=== PATIENT | male | born 1940 | race Caucasian/White ===

== ENCOUNTER → 2016-07-18 | Outpatient (CLI) | payer MEDICARE, BC ==
[2016-07-18 16:06] LABS: EKG EKG PERFORMED
[2016-07-18 16:47] LABS: Potassium 4.1 mmol/L (3.5-5.1)
== END | disposition home or self-care (01) ==
LOC: LABPAT 15:53
PROVIDERS: ATTEND Anesthesiology
DX: Z01.810 Encounter for preprocedural cardiovascular examination (principal); Z01.818 Encounter for other preprocedural examination
CPT/HCPCS: 84132; 86850; 86900; 86901; 93005

== ENCOUNTER 2016-07-20 05:55 | Day surgery (SDC) | payer MEDICARE, BC ==
[~2016-07-20 05:55] MED LIST: HEPARIN SODIUM,PORCINE 5,000 UNIT/ML 1 ML VIAL SQ ONE; ceFAZolin 2 GM in SODIUM CHLORIDE 0.9% 100 ML IVPB ONE
[2016-07-20] MEDS ORDERED: DEXAMETHASONE SOD PHOSPHATE 10 MG/ML 1 ML VIAL IV ONE (06:01)
[2016-07-20] MEDS ORDERED: ONDANSETRON 4 MG/2 ML VIAL IVP ONE (06:01)
[2016-07-20] MEDS ORDERED: HYDROmorphone 1 MG/ML 1 ML SYRINGE IVP PRN ×2 (06:01→11:22)
[2016-07-20] MEDS: LACTATED RINGERS 1,000 ML IV SCH (06:45)
[2016-07-20] MEDS ORDERED: LIDOCAINE 1% 20 ML VIAL (10MG/ML) FOR IV START INTRADERMA ONE (06:45)
[2016-07-20 06:46] LABS: Glucose,Whole Blood 137 mg/dL (75-99)
[2016-07-20 07:06] LABS: Basophils # (A) 0.1 k/uL (0-0.2); Basophils % (A) 1 %; CH 30.5; CHCM 33.1; Eosinophils # (A) 0.2 k/uL (0-0.7); Eosinophils % (A) 3 %; HCT 46.2 % (39.0-53.0); HDW 2.27; HGB 15.3 gm/dL (13.0-17.5); Luc # (Auto) 0.09; Luc % (Auto) 2; Lymphocytes # (A) 1.4 k/uL (1.0-4.8); Lymphocytes % (A) 25 %; MCH 30.6 pg (25.0-35.0); MCV 92.6 fL (80.0-100.0); Mean Platelet Volume 7.1; Monocytes # (A) 0.4 k/uL (0-1.0); Monocytes % (A) 6 %; Neutrophils # (A) 3.7 k/uL (1.3-7.7); Neutrophils % (A) 64 %; RBC 4.99 m/uL (4.30-5.90); RDW 12.9 % (11.5-15.5); WBC 5.9 k/uL (3.8-10.6); WBC (Perox) 5.69
[2016-07-20 07:24] LABS: ALT 38 U/L (21-72); AST 27 U/L (17-59); Alkaline Phosphatase 66 U/L (38-126); Anion Gap 12 mmol/L; Blood Urea Nitrogen 18 mg/dL (9-20); Calcium 10.5 mg/dL (8.4-10.2); Carbon Dioxide 26 mmol/L (22-30); Chloride 104 mmol/L (98-107); Glucose 154 mg/dL (74-99); Non-African American GFR(MDRD) >60 (>60 ml/min/1.73 sqM); Potassium 4.2 mmol/L (3.5-5.1); Sodium 142 mmol/L (137-145); Total Bilirubin 1.2 mg/dL (0.2-1.3); Total Protein 7.5 g/dL (6.3-8.2)
[2016-07-20] MEDS ORDERED: BUPIVACAIN-EPI 0.25%-1:200,000 30 ML VIAL SQ ONE ×2 (07:37→09:07)
--- NOTE | 2016-07-20 07:57 | P.GSHP ---
History of Present Illness H&P Date: 07/20/16 Chief Complaint: Incisional hernia This is a 76-year-old male who presents today for laparoscopic robotic-assisted repair of incisional hernia. Patient has developed a incisional hernia along his midline scar. - Constitutional Constitutional: Reports as per HPI Past Medical History Past Medical History: Diabetes Mellitus, Hyperlipidemia, Hypertension Additional Past Medical History / Comment(s): STATES ABDOMINAL HERNIA. History of Any Multi-Drug Resistant Organisms: None Reported Past Surgical History: Cholecystectomy, Hernia Repair Additional Past Surgical History / Comment(s): ruptured diaphragm after a fall ( about 2005) then had abdominal surgery, CATARACTS Past Anesthesia/Blood Transfusion Reactions: No Reported Reaction, Motion Sickness Past Psychological History: No Psychological Hx Reported Additional Psychological History / Comment(s): . Smoking Status: Former smoker Past Alcohol Use History: Rare Additional Past Alcohol Use History / Comment(s): QUIT SMOKING 1989, SMOKED ABOUT 30 YRS, 1PPD Past Drug Use History: None Reported - Past Family History Sister(s) Family Medical History: Cancer, CVA/TIA Mother Family Medical History: No Reported History Brother(s) Family Medical History: Hypertension Medications and Allergies Home Medications Medication Instructions Recorded Confirmed Type Atorvastatin [Lipitor] 10 mg PO HS 10/24/14 07/14/16 History Valsartan/Hydrochlorothiazide 1 tab PO HS 10/25/14 07/14/16 History [Valsartan-Hctz 160-12.5 mg Tab] Aspirin [Adult Low Dose Aspirin EC] 81 mg PO DAILY 07/29/15 07/14/16 History Sildenafil Citrate [Viagra] 100 mg PO ONCE 07/14/16 07/14/16 History metFORMIN HCL [Glucophage] 500 mg PO DAILY 07/14/16 07/14/16 History Allergies Allergy/AdvReac Type Severity Reaction Status Date / Time No Known Allergies Allergy Verified 07/14/16 17:34 Surgical - Exam Vital Signs Temp Pulse Resp BP Pulse Ox 97.2 F L 65 18 134/79 99 07/20/16 06:25 07/20/16 06:25 07/20/16 06:25 07/20/16 06:25 07/20/16 06:25 - General well developed, no distress - Eyes PERRL - ENT normal pinna - Neck no masses - Respiratory normal expansion - Cardiovascular Rhythm: regular - Abdomen Abdomen: soft, non tender Hernia: incisional, reducible (10 x 15 cm) Results - Labs 07/20/16 06:56 07/20/16 06:56 Abnormal Lab Results - Last 24 Hours (Table) 07/20/16 07/20/16 Range/Units 06:32 06:56 Glucose 154 H (74-99) mg/dL POC Glucose (mg/dL) 137 H (75-99) mg/dL Calcium 10.5 H (8.4-10.2) mg/dL Diabetes panel 07/20/16 Range/Units 06:56 Sodium 142 (137-145) mmol/L Potassium 4.2 (3.5-5.1) mmol/L Chloride 104 (98-107) mmol/L Carbon Dioxide 26 (22-30) mmol/L BUN 18 (9-20) mg/dL Creatinine 0.90 (0.66-1.25) mg/dL Glucose 154 H (74-99) mg/dL Calcium 10.5 H (8.4-10.2) mg/dL AST 27 (17-59) U/L ALT 38 (21-72) U/L Alkaline Phosphatase 66 (38-126) U/L Total Protein 7.5 (6.3-8.2) g/dL Albumin 4.4 (3.5-5.0) g/dL Calcium panel 07/20/16 Range/Units 06:56 Calcium 10.5 H (8.4-10.2) mg/dL Albumin 4.4 (3.5-5.0) g/dL Pituitary panel 07/20/16 Range/Units 06:56 Sodium 142 (137-145) mmol/L Potassium 4.2 (3.5-5.1) mmol/L Chloride 104 (98-107) mmol/L Carbon Dioxide 26 (22-30) mmol/L BUN 18 (9-20) mg/dL Creatinine 0.90 (0.66-1.25) mg/dL Glucose 154 H (74-99) mg/dL Calcium 10.5 H (8.4-10.2) mg/dL Adrenal panel 07/20/16 Range/Units 06:56 Sodium 142 (137-145) mmol/L Potassium 4.2 (3.5-5.1) mmol/L Chloride 104 (98-107) mmol/L Carbon Dioxide 26 (22-30) mmol/L BUN 18 (9-20) mg/dL Creatinine 0.90 (0.66-1.25) mg/dL Glucose 154 H (74-99) mg/dL Calcium 10.5 H (8.4-10.2) mg/dL Total Bilirubin 1.2 (0.2-1.3) mg/dL AST 27 (17-59) U/L ALT 38 (21-72) U/L Alkaline Phosphatase 66 (38-126) U/L Total Protein 7.5 (6.3-8.2) g/dL Albumin 4.4 (3.5-5.0) g/dL Assessment and Plan Plan: Incisional hernia. We'll perform laparoscopic robotic-assisted repair.
[2016-07-20] MEDS ORDERED: NEOSTIGMINE 1 MG/ML 10 ML VIAL ONE (08:01)
[2016-07-20] MEDS ORDERED: KETOROLAC 30 MG/ML 1 ML VIAL ONE (08:01)
[2016-07-20] MEDS ORDERED: PROPOFOL 10 MG/ML 20 ML VIAL IV ONE (08:01)
[2016-07-20] MEDS ORDERED: ePHEDrine 50 MG/ML 1 ML AMP ONE (08:01)
[2016-07-20] MEDS ORDERED: PHENYLEPHRINE-0.9% NACL SYG 1 MG/10 ML SYRINGE ONE (08:01)
[2016-07-20] MEDS ORDERED: ROCURONIUM BROMIDE 10 MG/ML 10 ML VIAL IV ONE (08:01)
[2016-07-20] MEDS ORDERED: LIDOCAINE 1% INJ 10MG/ML (20 ML MDV) ONE (08:01)
[2016-07-20] MEDS ORDERED: HYDROmorphone (PF) 1 MG/ML ONE (08:01)
[2016-07-20] MEDS ORDERED: MIDAZOLAM 2 MG/2 ML VIAL ONE (08:01)
[2016-07-20] MEDS ORDERED: SUCCINYLCHOLINE CHLORIDE 100 MG/5 ML SYR IV ONE (08:01)
[2016-07-20] MEDS ORDERED: GLYCOPYRROLATE 0.2 MG/ML 2 ML VIAL ONE (08:01)
[2016-07-20] MEDS ORDERED: fentaNYL (PF) 50 MCG/ML 2 ML AMP ONE (08:01)
[2016-07-20] MEDS ORDERED: LACTATED RINGERS 1,000 ML IV ONE ×2 (08:48→11:22)
--- NOTE | 2016-07-20 11:21 | P.OP ---
Date of Procedure: 07/20/16 Preoperative Diagnosis: Incarcerated incisional hernia Postoperative Diagnosis: Extensive adhesions Incarcerated incisional hernia Procedure(s) Performed: Laparoscopic lysis of adhesions Incarcerated incisional hernia Implants: Anesthesia: MARIANA Surgeon: Serge Goldsmith Estimated Blood Loss (ml): 10 Pathology: none sent Condition: stable Disposition: PACU Indications for Procedure: Operative Findings: Description of Procedure: The patient's placed the operative table in the supine position. He received general anesthesia. His abdomen was prepped and draped usual sterile fashion. The patient had a large incisional hernia located midline. At this point using a 5 mm blade was trocar under direct visitation the pleural cavity is entered in the left upper quadrant. The abdomen was insufflated and then the camera back the pleural cavity. There is extensive adhesions noted in this area. At this point a operative trochars placed in the left lower quadrant and the adhesions around the initial trocar were visualized. At this point a another 5 mm trocar was placed in the left upper quadrant lateral position and then a 12- lead trochars placed left lateral position. The initial 5 mm trocar was left in place and then the other 25 mm trochars were exchanged for a robotic 8 mm trochars. The patient was placed the left side up position and then the patient was docked to the robot. The Metzenbaum scissors and then a history of bipolar used to lyse adhesions. Approximate 45 minutes operative time used to lyse adhesions. The hernia sac was then dissected. And then the incarcerated omentum and bowel were reduced from the hernia. The fascial defect was then closed with oh strap suture. And then the hernia defect was reinforced with ventral light ST mesh was secured with 20 the lock suture. This point the patient was undocked from the robot. The needles were retrieved. The fascia of the 12 mm trocar site was closed with 0 Ethibond suture. Skin was closed interrupted 3-0 Monocryl suture. Dermabond was applied. Patient was sent to recovery in stable condition.
[2016-07-20] MEDS ORDERED: NALOXONE 0.4 MG/ML 1 ML VIAL IV PRN (11:22)
[2016-07-20] MEDS ORDERED: ACETAMINOPHEN IV (For NPO) 1,000 MG in EMPTY BAG 1 BAG IVPB ONE (11:22)
[2016-07-20] MEDS ORDERED: ONDANSETRON 4 MG/2 ML VIAL IVP PRN (11:22)
[2016-07-20] MEDS ORDERED: ACETAMINOPHEN TAB 325 MG TAB PO PRN (11:22)
[2016-07-20] MEDS ORDERED: traMADol 50 MG TAB PO PRN (11:22)
[2016-07-20 12:16] LABS: Glucose,Whole Blood 222 mg/dL (75-99)
[2016-07-20 14:35] VITALS: BMI 26.6
[2016-07-20 15:19] VITALS: RESP 20
[2016-07-20] MEDS: KETOROLAC 30 MG/ML 1 ML VIAL IVP SCH ×2 (17:09→23:15)
[2016-07-20 17:19] LABS: Glucose,Whole Blood 164 mg/dL (75-99)
[2016-07-20 20:56] LABS: Glucose,Whole Blood 159 mg/dL (75-99)
[2016-07-21] MEDS: KETOROLAC 30 MG/ML 1 ML VIAL IVP SCH ×2 (05:57→11:54)
[2016-07-21] MEDS: LACTATED RINGERS 1,000 ML IV SCH (05:58)
[2016-07-21 07:25] LABS: Glucose,Whole Blood 119 mg/dL (75-99)
[2016-07-21 07:40] VITALS: BP 153/86; PULSE 67; TEMP 97.5
[2016-07-21] MEDS ORDERED: ENOXAPARIN 40 MG/0.4 ML SYRINGE SQ SCH (09:00)
[2016-07-21] MEDS ORDERED: metFORMIN 500 MG TAB PO SCH (09:00)
[2016-07-21 10:30] LABS: Basophils % (A) 0 %; CH 30.5; CHCM 32.7; Eosinophils % (A) 1 %; HCT 40.2 % (39.0-53.0); HDW 2.16; HGB 13.7 gm/dL (13.0-17.5); Luc # (Auto) 0.07; Luc % (Auto) 1; Lymphocytes # (A) 1.1 k/uL (1.0-4.8); Lymphocytes % (A) 15 %; MCHC 34.1 g/dL (31.0-37.0); MCV 93.8 fL (80.0-100.0); Mean Platelet Volume 7.2; Monocytes # (A) 0.6 k/uL (0-1.0); Monocytes % (A) 8 %; Neutrophils # (A) 5.6 k/uL (1.3-7.7); Neutrophils % (A) 75 %; RBC 4.29 m/uL (4.30-5.90); RDW 12.8 % (11.5-15.5); WBC 7.4 k/uL (3.8-10.6); WBC (Perox) 7.74
[2016-07-21 12:24] LABS: Glucose,Whole Blood 124 mg/dL (75-99)
--- NOTE | 2016-07-21 12:55 | P.CONS ---
History of Present Illness - Reason for Consult Consult date: 07/21/16 Medical management Requesting physician: Serge Goldsmith - Chief Complaint Status post incarcerated incisional hernia repair - History of Present Illness This is a 76-year-old male, patient of [facility]. He has a known past history of diabetes, hyperlipidemia and hypertension. Patient presents to the hospital for laparoscopic robotic-assisted repair of his incisional hernia. Patient underwent laparoscopic lysis of adhesions and incarcerated incisional hernia repair with Dr. Maddison martinez. He tolerated surgery well. Surgery was completed yesterday on 07/20/2016. We've been consulted for medical management. Patient is doing well tolerated diet. He denies any chest pain or shortness of breath. Denies any nausea or vomiting he is passing gas. Denies any burning with urination. Denies any fevers chills or sweats. They're planning on discharge later this afternoon. Review of Systems Please refer to HPI otherwise unremarkable Past Medical History Past Medical History: Diabetes Mellitus, Hyperlipidemia, Hypertension Additional Past Medical History / Comment(s): STATES ABDOMINAL HERNIA. History of Any Multi-Drug Resistant Organisms: None Reported Past Surgical History: Cholecystectomy, Hernia Repair Additional Past Surgical History / Comment(s): ruptured diaphragm after a fall ( about 2005) then had abdominal surgery, CATARACTS Past Anesthesia/Blood Transfusion Reactions: No Reported Reaction, Motion Sickness Past Psychological History: No Psychological Hx Reported Additional Psychological History / Comment(s): . Smoking Status: Former smoker Past Alcohol Use History: Rare Additional Past Alcohol Use History / Comment(s): QUIT SMOKING 1989, SMOKED ABOUT 30 YRS, 1PPD Past Drug Use History: None Reported - Past Family History Sister(s) Family Medical History: Cancer, CVA/TIA Mother Family Medical History: No Reported History Brother(s) Family Medical History: Hypertension Medications and Allergies Home Medications Medication Instructions Recorded Confirmed Type Atorvastatin [Lipitor] 10 mg PO HS 10/24/14 07/14/16 History Valsartan/Hydrochlorothiazide 1 tab PO HS 10/25/14 07/14/16 History [Valsartan-Hctz 160-12.5 mg Tab] Aspirin [Adult Low Dose Aspirin EC] 81 mg PO DAILY 07/29/15 07/14/16 History Sildenafil Citrate [Viagra] 100 mg PO ONCE 07/14/16 07/14/16 History metFORMIN HCL [Glucophage] 500 mg PO DAILY 07/14/16 07/14/16 History Allergies Allergy/AdvReac Type Severity Reaction Status Date / Time No Known Allergies Allergy Verified 07/14/16 17:34 Physical Exam Vitals: Vital Signs Temp Pulse Pulse Pulse Resp BP Pulse Ox 07/21/16 07:00 97.5 F L 67 20 153/86 94 L 07/20/16 23:00 97.4 F L 80 20 145/74 96 07/20/16 14:30 96.8 F L 70 20 153/90 94 L 07/20/16 14:01 78 16 133/64 98 07/20/16 13:31 81 16 150/71 98 07/20/16 13:00 77 16 144/68 98 Intake and Output 07/20/16 07/21/16 07/21/16 22:59 06:59 14:59 Intake Total 440 100 480 Balance 440 100 480 Intake: Oral 440 100 480 Other: Voiding Method Toilet # Voids 2 Head normocephalic Neck supple Lungs clear to auscultation bilaterally no wheezing or crackles Heart regular rate and rhythm S1-S2, no rub or gallop Abdomen is soft nondistended abdominal binder in place Extremities no edema Neuro alert and orientated to 3 Results CBC & Chem 7: 07/21/16 09:17 07/20/16 06:56 Labs: Abnormal Lab Results - Last 24 Hours (Table) 07/20/16 07/20/16 07/21/16 Range/Units 17:15 20:36 07:13 RBC (4.30-5.90) m/uL POC Glucose (mg/dL) 164 H 159 H 119 H (75-99) mg/dL 07/21/16 07/21/16 Range/Units 09:17 12:18 RBC 4.29 L (4.30-5.90) m/uL POC Glucose (mg/dL) 124 H (75-99) mg/dL Assessment and Plan Plan: 1. Postop day #1 status post liver scopic lysis of adhesions and incarcerated incisional hernia repair with Dr. Goldsmith. Currently on a clear liquid diet 2. Diabetes mellitus type 2 resume his metformin. Blood sugars are stable 3. Essential hypertension: Resume blood pressure medications 4. Hyperlipidemia resume statin Patient is medically stable for discharge later this afternoon when cleared by surgery Thank you for this consultation and allowing us to participate in this patient' s care. Recommend that patient follows up with his PCP in 1 week Time with Patient: Greater than 30 (Greater than 50% of the total time spent in counseling and coordination of care.I performed an examination of the patient and discussed their management with the physician Advertising Photographer. I have reviewed the Physician Advertising Photographer's notes and agree with the documented findings and plan of care)
--- NOTE | 2016-07-21 17:23 | P.DS ---
Providers Date of admission: 07/20/2016 Expected date of discharge: 07/21/16 Attending physician: Serge Goldsmith Consults: 07/20/16 11:22 Consult Physician Routine Consulting Provider: Lorrie Juarez Consult Reason/Comments: Medical management Do you want consulting provider notified?: Yes Primary care physician: Eleni Yee [facility] Course: Patient is a 76-year-old male with medical history significant for incisional hernia along his midline scar. Patient presented for elective laparoscopic robotic-assisted repair of incisional hernia. Patient underwent laparoscopic lysis of adhesions and laparoscopic repair of incarcerated incisional hernia on 07/20/2016. Patient tolerated procedure well. Patient had an uneventful postoperative recovery. Patient was deemed stable for discharge to home with close follow-up in the outpatient setting. Discharge diagnoses: Extensive adhesions status post laparoscopic lysis of adhesions. Incarcerated incisional hernia status post laparoscopic repair of incarcerated incisional hernia. The above impression and plan have been discussed and directed by Dr. Goldsmith. Beni EASLEY acting as scribe for Dr. Goldsmith. Procedures: Laparoscopic lysis of adhesions Laparoscopic repair of incarcerated incisional hernia Patient Condition at Discharge: Good Plan - Discharge Summary New Discharge Prescriptions: Docusate [Colace] 100 mg PO BID #20 capsule HYDROcodone/APAP 7.5-325MG [[place] 7.5-325] 1 tab PO Q6HR PRN #28 tab PRN Reason: Pain Discharge Medication List Atorvastatin [Lipitor] 10 mg PO HS 10/24/14 [History] Valsartan/Hydrochlorothiazide [Valsartan-Hctz 160-12.5 mg Tab] 1 tab PO HS 10/25 [History] Aspirin [Adult Low Dose Aspirin EC] 81 mg PO DAILY 07/29/15 [History] Sildenafil Citrate [Viagra] 100 mg PO ONCE 07/14/16 [History] metFORMIN HCL [Glucophage] 500 mg PO DAILY 07/14/16 [History] Docusate [Colace] 100 mg PO BID #20 capsule 07/21/16 [Rx] HYDROcodone/APAP 7.5-325MG [[place] 7.5-325] 1 tab PO Q6HR PRN #28 tab 07/21/16 [ Rx] Follow up Appointment(s)/Referral(s): Eleni Yee DO [Primary Care Provider] - 07/28/16 2:00 pm (Appointment with [facility]) Serge Goldsmith MD [STAFF PHYSICIAN] - 07/28/16 4:10 pm Patient Instructions/Handouts: Laparoscopic Herniorrhaphy (DC) Activity/Diet/Wound Care/Special Instructions: No heavy lifting, pushing, or pulling items greater than 10 pounds. Soft diet Shower daily, no soaking in bath tubs, pools, or hot tubs. No driving while taking pain medication. Notify surgeon with any signs or symptoms of infection, increased pain, or not tolerating diet. Discharge Disposition: HOME SELF-CARE
[2016-07-21] MEDS ORDERED: ATORVASTATIN 10 MG TAB PO SCH (21:00)
[2016-07-21] MEDS ORDERED: VALSARTAN 160 MG TAB PO SCH (21:00)
[2016-07-21] MEDS ORDERED: HYDROCHLOROTHIAZIDE 12.5 MG CAP PO SCH (21:00)
== END 2016-07-21 13:56 | disposition home or self-care (01) ==
LOC: OR 05:55 → 4MS4W 11:22 → OR 07-21 13:56
PROVIDERS: ATTEND Surgery
DX: K43.0 Incisional hernia with obstruction, without gangrene (principal); K66.0 Peritoneal adhesions (postprocedural) (postinfection); E11.9 Type 2 diabetes mellitus without complications; Z79.84 Long term (current) use of oral hypoglycemic drugs; E78.5 Hyperlipidemia, unspecified; I10 Essential (primary) hypertension; Z87.891 Personal history of nicotine dependence; Z79.82 Long term (current) use of aspirin; Z79.899 Other long term (current) drug therapy
CPT/HCPCS: 80053; 85025 ×2; 49655; C1781 ×2; J2250; J1644; J1100; J2710; J0690; J2405; J2001; J1650; J3010; J1885 ×2; J1170; J0131; J2370; J0330; J2704; 86850; 86900; 86901

== ENCOUNTER 2016-11-05 22:15 | Inpatient (IN) | payer OTHER, MEDICARE, BC ==
[2016-11-05] MEDS ORDERED: ONDANSETRON 4 MG/2 ML VIAL IVP STA (22:21)
[2016-11-05] MEDS ORDERED: RX INFO: IV CONTRAST WAS GIVEN 1 EACH MISC MISCELLANE PRN (22:42)
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
--- NOTE | 2016-11-05 23:05 | XR ---
EXAM: XR Pelvis, 1 or 2 Views CLINICAL HISTORY: Reason: trauma TECHNIQUE: Frontal view of the pelvis. COMPARISON: No relevant prior studies available. FINDINGS: Bones/joints: Unremarkable. No acute fracture. No dislocation. Soft tissues: Unremarkable. IMPRESSION: Normal pelvis x-ray.
--- NOTE | 2016-11-05 23:06 | XR ---
EXAM: XR Chest, 1 View CLINICAL HISTORY: Reason: trauma TECHNIQUE: Frontal view of the chest. COMPARISON: No relevant prior studies available. FINDINGS: Lungs: Left base patchy infiltrate which may represent subsegmental atelectasis or bronchopneumonia. Correlate clinically. Pleural space: Unremarkable. No pneumothorax. Heart: Unremarkable. No cardiomegaly. Mediastinum: Unremarkable. Bones/joints: Unremarkable. IMPRESSION: Left base patchy infiltrate which may represent subsegmental atelectasis or bronchopneumonia. Correlate clinically.
--- NOTE | 2016-11-05 23:11 | CT ---
ADDENDUM - Added by Gaby Saucedo MD on 11/05/2016 11:32 PM (-07:00) Addendum: Small left pneumothorax noted. Dr. Saucedo discussed this finding with Dr. Kidd on 11/05 23:22 (-04:00). This was already known from a CT performed recently at an outside institution. EXAM: CT Cervical Spine Without Intravenous Contrast CLINICAL HISTORY: Reason: Pain TECHNIQUE: Axial computed tomography images of the cervical spine without intravenous contrast. DLP is 336.70 mGy-cm. This CT exam was performed using one or more of the following dose reduction techniques: automated exposure control, adjustment of the mA and/or kV according to patient size, and/or use of iterative reconstruction technique. COMPARISON: No relevant prior studies available. FINDINGS: Vertebrae: Degenerated disc height loss at C4-5, C5-6, and C6-7 with posterior disc spur complexes at these levels causing bilateral neural foraminal narrowing and mild spinal canal stenosis. Arthrosis is noted at the craniocervical junction and atlantoodontoid articulation. [place] and the craniocervical junction may be due to old trauma or developmental. No acute fracture. Discs/spinal canal/neural foramina: See above. Soft tissues: Unremarkable. Lung apices: Unremarkable as visualized. IMPRESSION: No acute findings. Multilevel spondylotic changes and arthrosis as described above.
--- NOTE | 2016-11-05 23:19 | CT ---
EXAM: CT Abdomen and Pelvis Without Intravenous Contrast CLINICAL HISTORY: Reason: Pain TECHNIQUE: Axial computed tomography images of the abdomen and pelvis without intravenous contrast. DLP is 895.30 mGy-cm. This CT exam was performed using one or more of the following dose reduction techniques: automated exposure control, adjustment of the mA and/or kV according to patient size, and/or use of iterative reconstruction technique. COMPARISON: 10/27/14 FINDINGS: Lower thorax: Partial visualization of a small left pneumothorax. Bibasilar patchy and pulmonary infiltrates may represent subsegmental atelectasis. ABDOMEN: Liver: Unremarkable. Gallbladder and bile ducts: Cholecystectomy noted. No ductal dilation. Pancreas: Unremarkable. No ductal dilation. Spleen: Unremarkable. No splenomegaly. Adrenals: Unremarkable. No mass. Kidneys and ureters: Contrast material is noted in the collecting systems and urinary bladder. Stable parapelvic and cortical cysts in the right kidney. No obstructing stones. No hydronephrosis. Stomach and bowel: Sigmoid diverticulosis without active inflammation. No obstruction. No mucosal thickening. Appendix: No findings to suggest acute appendicitis. PELVIS: Bladder: See above. Reproductive: Unremarkable as visualized. ABDOMEN and PELVIS: Intraperitoneal space: Unremarkable. No free air. No significant fluid collection. Bones/joints: No acute fracture. No dislocation. Soft tissues: Unremarkable. Vasculature: Unremarkable. No abdominal aortic aneurysm. Lymph nodes: Unremarkable. No enlarged lymph nodes. IMPRESSION: 1. Partial visualization of a small left pneumothorax. 2. Sigmoid diverticulosis without active inflammation. [employer] 11/05/16 23:24 Call Doctor Regarding Pneumothorax, called Dr. Kidd on 11/05 23:22 (-04:00)
[2016-11-05] MEDS ORDERED: HYDROcodone/APAP 5-325MG 1 EACH TAB PO STA (23:21)
[2016-11-05] MEDS ORDERED: ACETAMINOPHEN TAB 325 MG TAB PO PRN (23:32)
[2016-11-05] MEDS ORDERED: ONDANSETRON 4 MG/2 ML VIAL IVP PRN (23:32)
[2016-11-05] MEDS ORDERED: NALOXONE 0.4 MG/ML 1 ML VIAL IV PRN (23:32)
[2016-11-05] MEDS ORDERED: MORPHINE SULFATE 4 MG/ML SYRINGE IV PRN (23:32)
[2016-11-06] MEDS ORDERED: VALSARTAN 160 MG TAB PO STA (00:11)
[2016-11-06] MEDS ORDERED: HYDROCHLOROTHIAZIDE 12.5 MG CAP PO STA (00:11)
[2016-11-06 00:52] VITALS: BMI 25.0
[2016-11-06] MEDS: HYDROcodone/APAP 5-325MG 1 EACH TAB PO PRN ×4 (05:57→23:13)
[2016-11-06] MEDS: SODIUM CHLORIDE 0.9% 1,000 ML IV SCH (05:58)
--- NOTE | 2016-11-06 10:36 | XR ---
EXAMINATION TYPE: XR chest 1V DATE OF EXAM: 11/06/2016 HISTORY: pneumothorax. REFERENCE: Previous study dated 11/05/2016. FINDINGS: There is a tiny left apical pneumothorax. This is approximately 5-10% by volume. There is l eft basilar atelectasis. There is blunting of the left CP angle. I could not exclude a small effusion . The heart is mildly enlarged.. IMPRESSION: 1. TINY LEFT APICAL PNEUMOTHORAX. 2. LEFT BASILAR AIRSPACE DISEASE. 3. I COULD NOT EXCLUDE A SMALL LEFT EFFUSION.
[2016-11-06] MEDS ORDERED: ALBUTEROL NEBULIZED 2.5 MG/3 ML INHALATION PRN (10:54)
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
[2016-11-06] MEDS: VALSARTAN 160 MG TAB PO SCH (13:19)
[2016-11-06] MEDS: HYDROCHLOROTHIAZIDE 12.5 MG CAP PO SCH (13:19)
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
[2016-11-06] MEDS: HEPARIN SODIUM,PORCINE 5,000 UNIT/ML 1 ML VIAL SQ SCH ×2 (16:20→23:14)
[2016-11-06] MEDS ORDERED: ATORVASTATIN 10 MG TAB PO SCH (21:00)
[2016-11-06 23:11] VITALS: RESP 16; TEMP 98
[2016-11-07] MEDS: SODIUM CHLORIDE 0.9% 1,000 ML IV SCH (05:28)
[2016-11-07 07:19] LABS: CH 30.7; CHCM 33.6; HCT 45.8 % (39.0-53.0); HDW 2.25; HGB 14.7 gm/dL (13.0-17.5); MCH 29.4 pg (25.0-35.0); MCV 91.9 fL (80.0-100.0); Mean Platelet Volume 7.5; RBC 4.99 m/uL (4.30-5.90)
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
[2016-11-07] MEDS ORDERED: metFORMIN 500 MG TAB PO SCH (07:30)
[2016-11-07 07:31] VITALS: BP 195/86; PULSE 66
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
[2016-11-07 07:41] LABS: ALT 60 U/L (21-72); AST 28 U/L (17-59); Alkaline Phosphatase 74 U/L (38-126); Anion Gap 8 mmol/L; Blood Urea Nitrogen 12 mg/dL (9-20); Calcium 10.6 mg/dL (8.4-10.2); Carbon Dioxide 31 mmol/L (22-30); Chloride 100 mmol/L (98-107); Glucose 169 mg/dL (74-99); Non-African American GFR(MDRD) >60 (>60 ml/min/1.73 sqM); Potassium 4.9 mmol/L (3.5-5.1); Sodium 139 mmol/L (137-145); Total Bilirubin 0.7 mg/dL (0.2-1.3); Total Protein 6.8 g/dL (6.3-8.2)
[2016-11-07] MEDS: HYDROCHLOROTHIAZIDE 12.5 MG CAP PO SCH (07:41)
[2016-11-07] MEDS: VALSARTAN 160 MG TAB PO SCH (07:41)
[2016-11-07] MEDS: HEPARIN SODIUM,PORCINE 5,000 UNIT/ML 1 ML VIAL SQ SCH (07:43)
[2016-11-07] MEDS: HYDROcodone/APAP 5-325MG 1 EACH TAB PO PRN (07:45)
[2016-11-07 09:02] LABS: Hemoglobin A1C 7.8 % (4.2-6.1)
== END 2016-11-07 08:40 | disposition home or self-care (01) | DRG 200 ==
LOC: EC 22:15 → 5MS5E 23:32
PROVIDERS: ADMIT Surgery; ATTEND Surgery
DX: S27.0XXA Traumatic pneumothorax, initial encounter (principal); S22.42XA Multiple fractures of ribs, left side, initial encounter for closed fracture; S27.329A Contusion of lung, unspecified, initial encounter; E11.9 Type 2 diabetes mellitus without complications; E78.5 Hyperlipidemia, unspecified; I10 Essential (primary) hypertension; Z87.19 Personal history of other diseases of the digestive system; Z98.49 Cataract extraction status, unspecified eye; Z90.49 Acquired absence of other specified parts of digestive tract; V20.0XXA Motorcycle driver injured in collision with pedestrian or animal in nontraffic accident, initial encounter; Z79.899 Other long term (current) drug therapy; Z79.82 Long term (current) use of aspirin; Z79.84 Long term (current) use of oral hypoglycemic drugs; Z87.891 Personal history of nicotine dependence; Z82.49 Family history of ischemic heart disease and other diseases of the circulatory system; Z80.9 Family history of malignant neoplasm, unspecified
CPT/HCPCS: 71010; 71020; 72125; 72170; 74176; 80053; 83036; 85027; 96374; 99285

== ENCOUNTER → 2018-07-27 | Outpatient (CLI) | payer MEDICARE, BC ==
--- NOTE | 2018-07-27 15:58 | XR ---
EXAMINATION TYPE: XR pelvis AP view DATE OF EXAM: 07/27/2018 CLINICAL HISTORY: Pelvic and right hip pain. TECHNIQUE: A single AP view of the pelvis is obtained. COMPARISON: Prior pelvic x-ray 2017. FINDINGS: There is no acute fracture/dislocation evident in the pelvis. The sacroiliac joints appea r symmetric and unremarkable. [id number] axial joint space loss with mild acetabular spurring o f both hips is redemonstrated. Vascular calcification bilateral groin region is seen. IMPRESSION: As above.
--- NOTE | 2018-07-27 16:00 | XR ---
EXAMINATION TYPE: XR lumbar spine 2 or 3V DATE OF EXAM: 07/27/2018 CLINICAL HISTORY: Low back pain. TECHNIQUE: Frontal and lateral images of the lumbar spine are obtained. COMPARISON: CT abdomen and pelvis November 05, 2016 FINDINGS: There are 5 lumbar type vertebral bodies redemonstrated. The lumbar spine shows satisfact ory alignment without evidence of acute fracture or dislocation. Mild disc space narrowing L5-S1 leve l is present otherwise vertebral body heights and disk space heights are within normal limits. There is prominent facet arthropathy in the lower lumbar spine redemonstrated. Vascular calcification overl randy the abdominal aorta is again seen. IMPRESSION: As above.
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
== END | disposition home or self-care (01) ==
LOC: RADXRMAIN 15:35
PROVIDERS: ATTEND Chiropractor
DX: M99.72 Connective tissue and disc stenosis of intervertebral foramina of thoracic region (principal); M99.73 Connective tissue and disc stenosis of intervertebral foramina of lumbar region; M46.96 Unspecified inflammatory spondylopathy, lumbar region; M99.03 Segmental and somatic dysfunction of lumbar region
CPT/HCPCS: 72040; 72100; 72170

== ENCOUNTER 2018-12-12 13:40 | Inpatient (IN) | payer MEDICARE, BC ==
[2018-12-12 15:14] LABS: Basophils # (A) 0.1 k/uL (0-0.2); Basophils % (A) 1 %; Eosinophils % (A) 0 %; HCT 44.8 % (39.0-53.0); HGB 14.8 gm/dL (13.0-17.5); Lymphocytes # (A) 0.6 k/uL (1.0-4.8); Lymphocytes % (A) 6 %; MCH 30.9 pg (25.0-35.0); MCV 93.8 fL (80.0-100.0); Mean Platelet Volume 6.7; Monocytes # (A) 0.3 k/uL (0-1.0); Monocytes % (A) 3 %; Neutrophils # (A) 9.3 k/uL (1.3-7.7); Neutrophils % (A) 89 %; Platelet Count 204 k/uL (150-450); RBC 4.78 m/uL (4.30-5.90); RDW 13.7 % (11.5-15.5); WBC 10.4 k/uL (3.8-10.6)
[2018-12-12 15:32] LABS: ALT 20 U/L (21-72); AST 24 U/L (17-59); African American GFR (CKD) >90 (>60 ml/min/1.73 sqM); Albumin 3.3 g/dL (3.5-5.0); Alkaline Phosphatase 56 U/L (38-126); Anion Gap 10 mmol/L; Blood Urea Nitrogen 24 mg/dL (9-20); Calcium 10.4 mg/dL (8.4-10.2); Carbon Dioxide 25 mmol/L (22-30); Chloride 101 mmol/L (98-107); Glucose 185 mg/dL (74-99); Non-African American GFR(CKD) 82 (>60 ml/min/1.73 sqM); Partial Thromboplastin Time 24.4 sec (22.0-30.0); Potassium 4.3 mmol/L (3.5-5.1); Prothrombin Time 10.7 sec (9.0-12.0); Sodium 136 mmol/L (137-145); Total Bilirubin 0.7 mg/dL (0.2-1.3); Total Protein 6.1 g/dL (6.3-8.2)
--- NOTE | 2018-12-12 16:16 | CT ---
EXAMINATION TYPE: CT angio chest DATE OF EXAM: 12/12/2018 COMPARISON: Outside chest x-ray earlier today. Outside chest CT November 05, 2016 HISTORY: Difficulty breathing, pneumonia CT DLP: 381 mGycm. Automated Exposure Control for Dose Reduction was Utilized. CONTRAST: CTA scan of the thorax is performed with IV Contrast, patient injected with 100 mL of Isovue 370, pul monary embolism protocol. MIP Images are created on CT scanner and reviewed. FINDINGS: LUNGS: There are small right greater than left pleural effusions. There are multifocal areas of groun dglass opacity and nodular consolidation bilaterally most prominent in the right upper lobe with aliza tional involvement of the bilateral lower lobes prominent posteriorly and to lesser degree the right middle lobe and lingula. MEDIASTINUM: There is satisfactory enhancement of the pulmonary artery and its branches, there is no CT evidence for pulmonary embolism. There are no greater than 1 cm hilar or mediastinal lymph nodes. No cardiomegaly is seen. Small pericardial effusion anterior aspect now present. [id number] calcified plaque in the ectatic descending aorta. OTHER: Cholecystectomy clips are seen. Some lobulated otherwise simple appearing thin-walled cyst pos teriorly midpole of the right kidney is only partially imaged portions of study IMPRESSION: 1. No CT evidence for acute pulmonary embolism. 2. Multifocal bilateral areas of acute alveolar infiltrate and/or edema most prominent involving righ t upper lobe and bilateral lower lobes. Findings correlate with same day outside chest x-ray.
[2018-12-12] MEDS ORDERED: AZITHROMYCIN 500 MG in SODIUM CHLORIDE 0.9% 250 ML IVPB STA (16:30)
[2018-12-12] MEDS ORDERED: HEPARIN SODIUM,PORCINE 5,000 UNIT/ML 1 ML VIAL IV ONE (16:34)
[2018-12-12] MEDS ORDERED: HEPARIN SODIUM,PORCINE 5,000 UNIT/ML 1 ML VIAL IV PRN (16:34)
--- NOTE | 2018-12-12 16:39 | ED ---
URI HPI - General Chief Complaint: Upper Respiratory Infection Stated Complaint: Pneumonia Time Seen by Provider: 12/12/18 14:03 Source: patient Mode of arrival: wheelchair Limitations: no limitations - History of Present Illness Initial Comments: Patient presents with shortness of breath. He has palpitations as well. He has no nausea or vomiting. He has no chest pain or pressure or tightness. He has no nausea or vomiting or diaphoresis. He was not doing anything when he began to feel sick. He has been feeling this way for at least a day. He denies sick contacts. He denies pain or swelling the legs. - Related Data Home Medications Medication Instructions Recorded Confirmed Aspirin [Adult Low Dose Aspirin EC] 81 mg PO HS 07/29/15 12/12/18 Atorvastatin [Lipitor] 20 mg PO HS 12/12/18 12/12/18 Budesonide/Formoterol Fumarate 2 puff INHALATION RT-BID 12/12/18 12/12/18 [Symbicort 160-4.5 Mcg Inhaler] Cholecalciferol [Vitamin D3 (25 2,000 unit PO HS 12/12/18 12/12/18 Mcg = 1000 Iu)] Hydrochlorothiazide [Hydrodiuril] 25 mg PO DAILY 12/12/18 12/12/18 Linagliptin [Tradjenta] 5 mg PO DAILY 12/12/18 12/12/18 Montelukast [Singulair] 10 mg PO DAILY 12/12/18 12/12/18 Tadalafil 10 - 20 mg PO ONCE PRN 12/12/18 12/12/18 Valsartan 320 mg PO DAILY 12/12/18 12/12/18 amLODIPine [Norvasc] 5 mg PO DAILY 12/12/18 12/12/18 Allergies Allergy/AdvReac Type Severity Reaction Status Date / Time No Known Allergies Allergy Verified 12/12/18 14:49 Review of Systems ROS Statement: Those systems with pertinent positive or pertinent negative responses have been documented in the HPI. ROS Other: All systems not noted in ROS Statement are negative. Past Medical History Past Medical History: Diabetes Mellitus, Hyperlipidemia, Hypertension Additional Past Medical History / Comment(s): STATES ABDOMINAL HERNIA. History of Any Multi-Drug Resistant Organisms: None Reported Past Surgical History: Cholecystectomy, Hernia Repair Additional Past Surgical History / Comment(s): ruptured diaphragm after a fall (about 2005) then had abdominal surgery, CATARACTS Past Anesthesia/Blood Transfusion Reactions: No Reported Reaction, Motion Sickness Past Psychological History: No Psychological Hx Reported Smoking Status: Former smoker Past Alcohol Use History: Rare Past Drug Use History: None Reported - Past Family History Sister(s) Family Medical History: Cancer, CVA/TIA Mother Family Medical History: No Reported History Brother(s) Family Medical History: Hypertension General Exam Limitations: no limitations General appearance: alert, in no apparent distress Head exam: Present: atraumatic, normocephalic, normal inspection Eye exam: Present: normal appearance, PERRL, EOMI. Absent: scleral icterus, conjunctival injection, periorbital swelling ENT exam: Present: normal exam, mucous membranes moist Neck exam: Present: normal inspection. Absent: tenderness, meningismus, lymphadenopathy Respiratory exam: Present: respiratory distress, rhonchi. Absent: wheezes, rales, stridor Cardiovascular Exam: Present: tachycardia, irregular rhythm, normal heart sounds. Absent: systolic murmur, diastolic murmur, rubs, gallop, clicks GI/Abdominal exam: Present: soft, normal bowel sounds. Absent: distended, tenderness, guarding, rebound, rigid Extremities exam: Present: normal inspection, full ROM, normal capillary refill. Absent: tenderness, pedal edema, joint swelling, calf tenderness Back exam: Present: normal inspection Neurological exam: Present: alert, oriented X3, CN II-XII intact Psychiatric exam: Present: normal affect, normal mood Skin exam: Present: warm, dry, intact, normal color. Absent: rash Course Vital Signs 12/12/18 12/12/18 12/12/18 13:51 14:30 15:29 Temperature 98 F Pulse Rate 89 104 H Respiratory 18 18 18 Rate Blood Pressure 113/63 151/64 O2 Sat by Pulse 89 L 96 Oximetry Medical Decision Making - Medical Decision Making Patient presents with new onset atrial fibrillation. Laboratory studies are within acceptable limits. Troponin is negative. CT of the chest was obtained as I was concerned for pulmonary embolism. There is no PE, but there is significant multilobar pneumonia. I sent blood cultures and started IV antibiotics. Patient will be admitted to the hospital. - Lab Data Result diagrams: 12/12/18 15:03 12/12/18 15:03 Lab Results 12/12/18 12/12/18 12/12/18 Range/Units 15:03 15:03 15:03 WBC 10.4 (3.8-10.6) k/uL RBC 4.78 (4.30-5.90) m/uL Hgb 14.8 (13.0-17.5) gm/dL Hct 44.8 (39.0-53.0) % MCV 93.8 (80.0-100.0) fL MCH 30.9 (25.0-35.0) pg MCHC 33.0 (31.0-37.0) g/dL RDW 13.7 (11.5-15.5) % Plt Count 204 (150-450) k/uL Neutrophils % 89 % Lymphocytes % 6 % Monocytes % 3 % Eosinophils % 0 % Basophils % 1 % Neutrophils # 9.3 H (1.3-7.7) k/uL Lymphocytes # 0.6 L (1.0-4.8) k/uL Monocytes # 0.3 (0-1.0) k/uL Eosinophils # 0.0 (0-0.7) k/uL Basophils # 0.1 (0-0.2) k/uL PT 10.7 (9.0-12.0) sec INR 1.0 (<1.2) APTT 24.4 (22.0-30.0) sec Sodium 136 L (137-145) mmol/L Potassium 4.3 (3.5-5.1) mmol/L Chloride 101 (98-107) mmol/L Carbon Dioxide 25 (22-30) mmol/L Anion Gap 10 mmol/L BUN 24 H (9-20) mg/dL Creatinine 0.88 (0.66-1.25) mg/dL Est GFR (CKD-EPI)AfAm >90 (>60 ml/min/1.73 sqM) Est GFR (CKD-EPI)NonAf 82 (>60 ml/min/1.73 sqM) Glucose 185 H (74-99) mg/dL Calcium 10.4 H (8.4-10.2) mg/dL Magnesium 2.0 (1.6-2.3) mg/dL Total Bilirubin 0.7 (0.2-1.3) mg/dL AST 24 (17-59) U/L ALT 20 L (21-72) U/L Alkaline Phosphatase 56 (38-126) U/L Troponin I (0.000-0.034) ng/mL NT-Pro-B Natriuret Pep pg/mL Total Protein 6.1 L (6.3-8.2) g/dL Albumin 3.3 L (3.5-5.0) g/dL 12/12/18 12/12/18 Range/Units 15:03 15:03 WBC (3.8-10.6) k/uL RBC (4.30-5.90) m/uL Hgb (13.0-17.5) gm/dL Hct (39.0-53.0) % MCV (80.0-100.0) fL MCH (25.0-35.0) pg MCHC (31.0-37.0) g/dL RDW (11.5-15.5) % Plt Count (150-450) k/uL Neutrophils % % Lymphocytes % % Monocytes % % Eosinophils % % Basophils % % Neutrophils # (1.3-7.7) k/uL Lymphocytes # (1.0-4.8) k/uL Monocytes # (0-1.0) k/uL Eosinophils # (0-0.7) k/uL Basophils # (0-0.2) k/uL PT (9.0-12.0) sec INR (<1.2) APTT (22.0-30.0) sec Sodium (137-145) mmol/L Potassium (3.5-5.1) mmol/L Chloride (98-107) mmol/L Carbon Dioxide (22-30) mmol/L Anion Gap mmol/L BUN (9-20) mg/dL Creatinine (0.66-1.25) mg/dL Est GFR (CKD-EPI)AfAm (>60 ml/min/1.73 sqM) Est GFR (CKD-EPI)NonAf (>60 ml/min/1.73 sqM) Glucose (74-99) mg/dL Calcium (8.4-10.2) mg/dL Magnesium (1.6-2.3) mg/dL Total Bilirubin (0.2-1.3) mg/dL AST (17-59) U/L ALT (21-72) U/L Alkaline Phosphatase (38-126) U/L Troponin I 0.027 (0.000-0.034) ng/mL NT-Pro-B Natriuret Pep 1330 pg/mL Total Protein (6.3-8.2) g/dL Albumin (3.5-5.0) g/dL - EKG Data EKG Comments: Twelve-lead EKG shows ventricular rate 91 bpm, there are no P waves appreciated, the QRS complexes are narrow and irregular, there are some PVCs, there is no ST elevation or depression, interpreted by me as atrial fibrillation. Disposition Clinical Impression: Pneumonia, Atrial fibrillation Disposition: ADMITTED IP TO THIS HOSP Condition: Serious Is patient prescribed a controlled substance at d/c from ED?: No Referrals: Eleni Yee DO [Primary Care Provider] - 1-2 days
[2018-12-12] MEDS: HEPARIN SOD,PORK IN 0.45% NACL 25,000 UNIT in 0.45% NACL 1 250ML.BAG IV SCH (17:05)
[2018-12-12] MEDS ORDERED: SODIUM CHLORIDE 0.9% 1,000 ML IV STA ×2 (17:13→17:14)
[2018-12-12] MEDS ORDERED: DOCUSATE 100 MG CAP PO PRN (17:19)
[2018-12-12] MEDS ORDERED: NALOXONE 0.4 MG/ML 1 ML VIAL IV PRN (17:19)
[2018-12-12] MEDS: SYMBICORT 160-4.5 MCG INHALER INHALATION SCH (19:35)
[2018-12-12] MEDS: CHOLECALCIFEROL 1,000 UNIT TAB PO SCH (20:14)
[2018-12-12] MEDS: ATORVASTATIN 20 MG TAB PO SCH (20:14)
[2018-12-12] MEDS: ASPIRIN 81 MG PO SCH (20:14)
[2018-12-12 20:46] LABS: Glucose,Whole Blood 173 mg/dL (75-99)
[2018-12-12] MEDS: INSULIN ASPART (NovoLOG) 100 UNIT/ML VIAL SQ SCH (20:46)
[2018-12-13 06:09] LABS: Glucose,Whole Blood 144 mg/dL (75-99)
[2018-12-13] MEDS: INSULIN ASPART (NovoLOG) 100 UNIT/ML VIAL SQ SCH ×4 (06:16→22:24)
[2018-12-13 06:30] LABS: Basophils % (A) 0 %; Eosinophils % (A) 0 %; HCT 37.9 % (39.0-53.0); Lymphocytes # (A) 0.7 k/uL (1.0-4.8); Lymphocytes % (A) 7 %; MCH 31.4 pg (25.0-35.0); MCHC 34.2 g/dL (31.0-37.0); MCV 91.8 fL (80.0-100.0); Monocytes # (A) 0.4 k/uL (0-1.0); Monocytes % (A) 4 %; Neutrophils # (A) 7.9 k/uL (1.3-7.7); Neutrophils % (A) 86 %; Platelet Count 237 k/uL (150-450); RBC 4.13 m/uL (4.30-5.90); RDW 13.7 % (11.5-15.5); WBC 9.2 k/uL (3.8-10.6)
[2018-12-13 06:40] LABS: Partial Thromboplastin Time 33.4 sec (22.0-30.0); Prothrombin Time 10.4 sec (9.0-12.0)
[2018-12-13] MEDS: SYMBICORT 160-4.5 MCG INHALER INHALATION SCH ×2 (07:29→19:45)
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
[2018-12-13] MEDS: amLODIPine 5 MG TAB PO SCH (10:57)
[2018-12-13] MEDS: AZITHROMYCIN 500 MG in SODIUM CHLORIDE 0.9% 250 ML IVPB SCH (10:58)
[2018-12-13] MEDS: HYDROCHLOROTHIAZIDE 25 MG TAB PO SCH (10:58)
[2018-12-13] MEDS: MONTELUKAST 10 MG TAB PO SCH (10:59)
[2018-12-13] MEDS: VALSARTAN 160 MG TAB PO SCH (10:59)
[2018-12-13] MEDS: LINAGLIPTIN 5 MG TABLET PO SCH (10:59)
[2018-12-13 11:55] LABS: Glucose,Whole Blood 136 mg/dL (75-99)
[2018-12-13] MEDS: HEPARIN SOD,PORK IN 0.45% NACL 25,000 UNIT in 0.45% NACL 1 250ML.BAG IV SCH (13:37)
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
[2018-12-13 16:38] LABS: Glucose,Whole Blood 118 mg/dL (75-99)
--- NOTE | 2018-12-13 18:43 | ECHOF ---
Referral Reason:afib MEASUREMENTS -------- HEIGHT: 182.9 cm WEIGHT: 81.6 kg BP: 130/40 RVIDd: 3.5 cm (< 3.3) IVSd: 2.0 cm (0.6 - 1.1) LVIDd: 3.1 cm (3.9 - 5.3) LVPWd: 2.0 cm (0.6 - 1.1) IVSs: 2.3 cm LVIDs: 2.3 cm LVPWs: 1.8 cm LAESV Index (A-L): 29.15 ml/m Ao Diam: 3.9 cm (2.0 - 3.7) AV Cusp: 2.3 cm (1.5 - 2.6) MV EXCURSION: 13.405 mm (> 18.000) MV EF SLOPE: 59 mm/s (70 - 150) EPSS: 0.3 cm AR PHT: 452 ms RAP: 5.00 mmHg RVSP: 64.52 mmHg FINDINGS -------- Atrial fibrillation. This was a technically adequate study. The left ventricular size is normal. There is severe concentric left ventricular hypertrophy. Ove rall left ventricular systolic function is low-normal with, an EF between 50 - 55 %. Left ventricul ar fillimg pressure cannot be estimated due to Atrial fibrillation. The right ventricle is mildly enlarged. LA is midly dilated 29-33ml/m2. RA appears enlarged. Interatrial and interventricular septum intact. The aortic valve is trileaflet and appears structurally normal. Trace amount of aortic regurgitatio n. There is no evidence of aortic stenosis. Mild mitral annular calcification present. Mild mitral regurgitation is present. Moderate to severe tricuspid regurgitation present. There is severe pulmonary hypertension. The r ight ventricular systolic pressure, as measured by Doppler, is 64.52mmHg. There is no pulmonic regurgitation present. The aortic root size is normal. IVC Not well visulized. There is a small pericardial effusion located near the left ventricle. CONCLUSIONS -------- 1. Atrial fibrillation. 2. This was a technically adequate study. 3. The left ventricular size is normal. 4. There is severe concentric left ventricular hypertrophy. 5. Overall left ventricular systolic function is low-normal with, an EF between 50 - 55 %. 6. Left ventricular fillimg pressure cannot be estimated due to Atrial fibrillation. 7. The right ventricle is mildly enlarged. 8. LA is midly dilated 29-33ml/m2. 9. RA appears enlarged. 10. Interatrial and interventricular septum intact. 11. The aortic valve is trileaflet and appears structurally normal. 12. Trace amount of aortic regurgitation. 13. There is no evidence of aortic stenosis. 14. Mild mitral annular calcification present. 15. Mild mitral regurgitation is present. 16. Moderate to severe tricuspid regurgitation present. 17. There is severe pulmonary hypertension. 18. The right ventricular systolic pressure, as measured by Doppler, is 64.52mmHg. 19. There is no pulmonic regurgitation present. 20. The aortic root size is normal. 21. IVC Not well visulized. 22. There is a small pericardial effusion located near the left ventricle. [employer]ER: Emilie Donaldson RDCS
[2018-12-13] MEDS: ASPIRIN 81 MG PO SCH (20:00)
[2018-12-13] MEDS: CHOLECALCIFEROL 1,000 UNIT TAB PO SCH (20:01)
[2018-12-13] MEDS: ATORVASTATIN 20 MG TAB PO SCH (20:01)
[2018-12-13 20:35] LABS: Glucose,Whole Blood 188 mg/dL (75-99)
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
[2018-12-14 06:42] LABS: Glucose,Whole Blood 146 mg/dL (75-99)
[2018-12-14] MEDS: INSULIN ASPART (NovoLOG) 100 UNIT/ML VIAL SQ SCH ×4 (06:45→20:57)
[2018-12-14 07:26] LABS: Basophils % (A) 0 %; Eosinophils # (A) 0.1 k/uL (0-0.7); Eosinophils % (A) 1 %; HCT 42.7 % (39.0-53.0); HGB 13.8 gm/dL (13.0-17.5); Lymphocytes # (A) 0.8 k/uL (1.0-4.8); Lymphocytes % (A) 7 %; MCHC 32.4 g/dL (31.0-37.0); MCV 92.7 fL (80.0-100.0); Mean Platelet Volume 7.4; Monocytes # (A) 0.8 k/uL (0-1.0); Monocytes % (A) 7 %; Neutrophils # (A) 10.2 k/uL (1.3-7.7); Neutrophils % (A) 85 %; Platelet Count 276 k/uL (150-450); RBC 4.61 m/uL (4.30-5.90); RDW 13.9 % (11.5-15.5)
[2018-12-14 07:51] LABS: INR 0.9 (<1.2); Partial Thromboplastin Time 53.7 sec (22.0-30.0); Prothrombin Time 9.9 sec (9.0-12.0)
[2018-12-14] MEDS ORDERED: APIXABAN 5 MG TAB PO SCH (09:00)
[2018-12-14] MEDS: SYMBICORT 160-4.5 MCG INHALER INHALATION SCH ×2 (09:06→19:54)
[2018-12-14] MEDS: amLODIPine 5 MG TAB PO SCH (09:21)
[2018-12-14] MEDS: LINAGLIPTIN 5 MG TABLET PO SCH (09:22)
[2018-12-14] MEDS: HYDROCHLOROTHIAZIDE 25 MG TAB PO SCH (09:22)
[2018-12-14] MEDS: VALSARTAN 160 MG TAB PO SCH (09:23)
[2018-12-14] MEDS: MONTELUKAST 10 MG TAB PO SCH (09:23)
[2018-12-14] MEDS: APIXABAN 5 MG TAB PO SCH ×2 (09:25→20:30)
[2018-12-14] MEDS: AZITHROMYCIN 500 MG in SODIUM CHLORIDE 0.9% 250 ML IVPB SCH (09:27)
[2018-12-14 11:49] LABS: Glucose,Whole Blood 140 mg/dL (75-99)
[2018-12-14] MEDS: guaiFENesin 600 MG TABLET.ER PO SCH ×2 (12:09→20:30)
--- NOTE | 2018-12-14 13:46 | P.PN ---
Subjective Progress Note Date: 12/14/18 This is a 78-year-old gentleman who has known history of hypertension, diabetes, nonsmoker, asthma, presented to the hospital with symptoms of generalized malaise with associated shortness of breath and productive cough. He also states that on Monday when he started to feel awful that he thinks he may have had a temperature. Blood pressure on arrival here 113/63 with a heart rate in the 80s, 89% on room air, temperature was 98. Throughout the night last night, patient did have a temperature up to 100.3. He is afebrile this morning with a blood pressure of 128/68, heart rate 103, respirations 18. Chest x-ray results are pending. Patient did have a CTA of the chest performed she did not reveal any evidence for pulmonary embolism. Multifocal bilateral areas of acute alveolar infiltrates and/or edema most prominent involving the right upper lobe and bilateral lower lobes. EKG on presentation here showed atrial fibrillation with a heart rate of 90, incomplete right bundle branch block pattern, occasional PVC and nonspecific ST-T wave changes. Laboratory data was reviewed, white blood cell count 9.2, hemoglobin 13, platelet count 237. Sodium 136, potassium 4.3, BUN 24, creatinine 0.8. Plasma lactic acid 3.7, down to 1.9. Troponins 0.0-7, 0.028, 0.025. BNP level 1330. At the time of my examination this morning, patient states he still feels quite short of breath, he does state that his sputum which initially appeared yellow in color is clear today. 12/14/2018 Patient was seen and examined this morning, feels significantly weaker today,mildly short of breath.blood pressure 124/70 with a heart rate of 90, 94% on 4 L of oxygen.White blood cell count 12.0, hemoglobin 13.8, platelet count 276.echocardiogram with Doppler study revealed an ejection fraction of 50-55%. Severe pulmonary hypertension. Small pericardial effusion Objective - Vital Signs Vital signs: Vital Signs Temp 98.1 F 12/14/18 11:31 Pulse 102 H 12/14/18 11:31 Resp 22 12/14/18 11:31 BP 125/71 12/14/18 11:31 Pulse Ox 94 L 12/14/18 11:31 Intake & Output 12/13/18 12/14/18 12/14/18 18:59 06:59 18:59 Intake Total 865.066 240 240 Output Total 600 500 Balance 865.066 360 -260 Weight 82.2 kg Intake: Intake, IV Titration 95.066 Amount Heparin Sod,Pork in 0.45% 95.066 NaCl 25,000 unit In 0.45 % NaCl 1 250ml.bag @ 12 UNITS/KG/HR 9.961 mls/hr IV .Q24H [facility] Rx#: [id number] Oral 770 240 240 Output: Urine 600 500 Other: Voiding Method Urinal Urinal Urinal # Voids 3 # Bowel Movements 2 - Exam PHYSICAL EXAMINATION: GENERAL: 78-year-old gentleman in no acute distress at the time of my examination HEENT: Head is atraumatic, normocephalic. Pupils equal, round. Sclera anicteric. Conjunctiva are clear. Mucous membranes of the mouth are moist. Neck is supple. There is no elevated jugular venous pressure. No carotid bruit is heard. HEART EXAMINATION: Heart S1 and S2 irregularly irregular CHEST EXAMINATION: Lungs reveal crackles to the right posterior base, mild diminished air entry to bilateral bases ABDOMEN: Soft, nontender. Bowel sounds are heard. No organomegaly noted. EXTREMITIES: 2+ peripheral pulses with trace evidence of peripheral edema and no calf tenderness noted. NEUROLOGIC patient is awake, alert and oriented 3 . - Labs CBC & Chem 7: 12/14/18 06:52 12/12/18 15:03 Labs: Abnormal Lab Results - Last 24 Hours (Table) 12/13/18 12/13/18 12/13/18 Range/Units 06:09 16:37 19:39 WBC (3.8-10.6) k/uL Neutrophils # (1.3-7.7) k/uL Lymphocytes # (1.0-4.8) k/uL APTT 49.3 H (22.0-30.0) sec POC Glucose (mg/dL) 118 H (75-99) mg/dL Procalcitonin 2.41 H (0.02-0.09) ng/mL 12/13/18 12/14/18 12/14/18 Range/Units 20:34 06:39 06:52 WBC 12.0 H (3.8-10.6) k/uL Neutrophils # 10.2 H (1.3-7.7) k/uL Lymphocytes # 0.8 L (1.0-4.8) k/uL APTT (22.0-30.0) sec POC Glucose (mg/dL) 188 H 146 H (75-99) mg/dL Procalcitonin (0.02-0.09) ng/mL 12/14/18 12/14/18 Range/Units 06:52 11:48 WBC (3.8-10.6) k/uL Neutrophils # (1.3-7.7) k/uL Lymphocytes # (1.0-4.8) k/uL APTT 53.7 H (22.0-30.0) sec POC Glucose (mg/dL) 140 H (75-99) mg/dL Procalcitonin (0.02-0.09) ng/mL Microbiology - Last 24 Hours (Table) 12/12/18 15:03 Blood Culture - Preliminary Blood No Growth after 24 hours Assessment and Plan Plan: Assessment and plan #1 symptoms of shortness of breath with associated productive cough and fever, CT of the chest suggests infiltrates bilaterally, clinical picture suggesting a pneumonia. #2 atrial fibrillation with moderately rapid ventricular response, appears to be of new onset for the patient. EKG reviewed from 2017 showed a normal sinus rhythm. #3 hypertension #4 diabetes #5 hyperlipidemia #6 asthma Plan Echocardiogram with Doppler study revealed a normal left ventricular systolic function small pericardial effusion and moderate pulmonary hypertension. Pro calcitonin came back elevated at 2.4,supporting the diagnosis of pneumonia.we will continue with current medications including Eliquis 5 mg twice a day for anticoagulation. DNP note has been reviewed, I agree with a documented findings and plan of care. Patient was seen and examined.
--- NOTE | 2018-12-14 15:16 | P.PN ---
Subjective Progress Note Date: 12/14/18 Principal diagnosis: Acute hypoxic respiratory failure secondary to bilateral infiltrates and possible pneumonia versus interstitial lung disease or less likely cancer. This is a very pleasant 78-year-old gentleman who follows with Dr. Yee as his primary care provider. He has a history of diabetes mellitus, hyperlipidemia, hypertension, abdominal hernia with previous hernia repair. He also has a previous history of chronic tobacco dependence and chronic obstructive pulmonary disease and follows with Dr. Hodge in our office for the same. He is on Symbicort, Singulair and albuterol in the outpatient setting. He presented here to the emergency room yesterday with complaints of increasing shortness of breath over the past several days. CT angiogram revealed no ev idence of pulmonary embolism. There is multifocal bilateral areas of acute alveolar infiltrate or edema most prominent involving the right upper lobe and bilateral lower lobes. He is seen today in consultation on the selective care unit. He is currently sitting up in a chair at the bedside. Awake and alert in no acute distress. He is maintaining O2 saturations in the upper 90s on 4 L/m per nasal cannula. Initiated on ceftriaxone and azithromycin. Currently afebrile. He did have a T-max of 100.3. White count 9.2. Hemoglobin 13.3. Sodium 136. Potassium 4.3. Creatinine 0.88. ProBNP 1330. The patient was found to have a new onset of atrial fibrillation with a rapid ventricular res ponse. He is currently on a heparin drip. Rate is better controlled today. Cardiology is on the case and is planning to transition to Eliquis. Patient is seen today on 12/14/2018 in follow-up on the selective care unit. He is currently resting comfortably in bed. Awake and alert in no acute distress. Denies any worsening shortness of breath, cough or congestion. Continues to maintain good O2 saturations in the 90s on 4 L/m per nasal cannula. Afebrile. White count 12.0. Hemoglobin 13.8. He remains on Symbicort, Singulair, IV Solu-Medrol, ceftriaxone and azithromycin. He is anticoagulated with Eliquis. Objective - Vital Signs Vital signs: Vital Signs Temp 98.1 F 12/14/18 11:31 Pulse 102 H 12/14/18 11:31 Resp 22 12/14/18 11:31 BP 125/71 12/14/18 11:31 Pulse Ox 94 L 12/14/18 11:31 Intake & Output 12/13/18 12/14/18 12/14/18 18:59 06:59 18:59 Intake Total 865.066 240 240 Output Total 600 500 Balance 865.066 -360 -260 Weight 82.2 kg Intake: Intake, IV Titration 95.066 Amount Heparin Sod,Pork in 0.45% 95.066 NaCl 25,000 unit In 0.45 % NaCl 1 250ml.bag @ 12 UNITS/KG/HR 9.961 mls/hr IV .Q24H [facility] Rx#: [id number] Oral 770 240 240 Output: Urine 600 500 Other: Voiding Method Urinal Urinal Urinal # Voids 3 # Bowel Movements 2 - Exam GENERAL EXAM: Alert, cachectic pleasant 78-year-old gentleman on 4 L nasal cannula comfortable in no apparent distress. HEAD: Normocephalic. EYES: Normal reaction of pupils, equal size. NOSE: Clear with pink turbinates. THROAT: No erythema or exudates. NECK: No masses, no JVD. CHEST: No chest wall deformity. LUNGS: Equal air entry with crackles in the bilateral posterior bases, diminished. CVS: S1 and S2 normal with no audible murmur, irregular rhythm. ABDOMEN: No hepatosplenomegaly, normal bowel sounds, no guarding or rigidity. SPINE: No scoliosis or deformity SKIN: No rashes CENTRAL NERVOUS SYSTEM: No focal deficits, tone is normal in all 4 extremities. EXTREMITIES: There is no peripheral edema. No clubbing, no cyanosis. Peripheral pulses are intact. - Labs CBC & Chem 7: 12/14/18 06:52 12/12/18 15:03 Labs: Abnormal Lab Results - Last 24 Hours (Table) 12/13/18 12/13/18 12/13/18 Range/Units 06:09 16:37 19:39 WBC (3.8-10.6) k/uL Neutrophils # (1.3-7.7) k/uL Lymphocytes # (1.0-4.8) k/uL APTT 49.3 H (22.0-30.0) sec POC Glucose (mg/dL) 118 H (75-99) mg/dL Procalcitonin 2.41 H (0.02-0.09) ng/mL 12/13/18 12/14/18 12/14/18 Range/Units 20:34 06:39 06:52 WBC 12.0 H (3.8-10.6) k/uL Neutrophils # 10.2 H (1.3-7.7) k/uL Lymphocytes # 0.8 L (1.0-4.8) k/uL APTT (22.0-30.0) sec POC Glucose (mg/dL) 188 H 146 H (75-99) mg/dL Procalcitonin (0.02-0.09) ng/mL 12/14/18 12/14/18 Range/Units 06:52 11:48 WBC (3.8-10.6) k/uL Neutrophils # (1.3-7.7) k/uL Lymphocytes # (1.0-4.8) k/uL APTT 53.7 H (22.0-30.0) sec POC Glucose (mg/dL) 140 H (75-99) mg/dL Procalcitonin (0.02-0.09) ng/mL Microbiology - Last 24 Hours (Table) 12/12/18 15:03 Blood Culture - Preliminary Blood No Growth after 24 hours Assessment and Plan Assessment: Impression: #1 Acute hypoxic respiratory failure secondary to bilateral infiltrates with possible pneumonia versus interstitial lung disease or remotely cancer. #2 New onset atrial fibrillation with a rapid ventricular response currently on a heparin drip. He transitioned to Eliquis. #3 Acute exacerbation of chronic obstructive pulmonary disease secondary to above. #4 Previous history of chronic tobacco dependence. #5 Hypertension. #6 Hyperlipidemia. #7 Diabetes mellitus. Plan: The patient was seen and evaluated by Dr. Walker. He is currently stable from the pulmonary standpoint. We will continue the current treatment plan. He is anticoagulated with Eliquis now. We'll have him follow up with Dr. Hodge in the outpatient setting in this regard. Titrate down his FiO2 as tolerated. We'll continue to follow and make further recommendations based on his clinical status. I, the cosigning physician, performed a history & physical examination of the patient. Lungs sounds with crackles in the bilateral posterior bases. Maintaining good O2 saturations in the 90s on 4 L/m per nasal cannula. I discussed the assessment and plan of care with my nurse practitioner, Kristy Castellanos. I attest to the above consultation as dictated by her.
[2018-12-14] MEDS: methylPREDNISolone SOD SUCCI 125 MG/2 ML VIAL IV SCH ×2 (15:32→23:27)
--- NOTE | 2018-12-14 16:21 | P.PN ---
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 He reports cough, malaise and shortness of breath which has lasted approximately 1 week but became worse over the past 2-3 days. He was seen in the pulmonology office and CXR showed multifocal pneumonia so pt was instructed to present to the ED. He endorses fevers and chills at home. On presentation to the ED he was hypoxic and tachycardic, WBC 10.4, lactic 3.7, BNP 1000, trop negative. CTA showed multifocal bilateral pneumonia. Pt was also noted to be in A fib on EKG. Pro calcitonin 2.5. 12/14/2018 Reports fluctuating episodes of nonproductive coughing, lower energy levels-weaker. Echo reported low normal LV function, EF 50-55% with moderate to severe tricuspid regurgitation, severe pulmonary hypertension, small pericardial effusion Showered, tolerated exertion well. Transitioning heparin into El iquis. VSS, maintaining O2 sats in the 90s on 4 L nasal cannula. Afebrile, WBC 12, preliminary blood cultures no growth at 24 hours. Objective - Vital Signs Vital signs: Vital Signs Temp 98.1 F 12/14/18 11:31 Pulse 102 H 12/14/18 11:31 Resp 22 12/14/18 11:31 BP 125/71 12/14/18 11:31 Pulse Ox 94 L 12/14/18 11:31 Intake & Output 12/13/18 12/14/18 12/14/18 18:59 06:59 18:59 Intake Total 865.066 240 240 Output Total 600 Balance 865.066 -360 240 Weight 82.2 kg Intake: Intake, IV Titration 95.066 Amount Heparin Sod,Pork in 0.45% 95.066 NaCl 25,000 unit In 0.45 % NaCl 1 250ml.bag @ 12 UNITS/KG/HR 9.961 mls/hr IV .Q24H [facility] Rx#: [id number] Oral 770 240 240 Output: Urine 600 Other: Voiding Method Urinal Urinal Urinal # Voids 3 # Bowel Movements 2 - Exam General: well nourished, well developed, NAD. Vitals reviewed Eyes: PERRL, EOMI, conjunctiva normal HENT: normocephalic, mucus membranes moist. On 2 L O2 Neck: supple, no JVD Lungs: Decreased air entry, bilateral bases diminished, no rhonchi, fine bibasilar crackles, expiratory wheezing CV: Irregularly irregular, no murmur. no edema, Peripheral pulses 2+ Abdomen: soft, nondistended, no organomegaly Lymph: no cervical or axillary LAD Skin: warm and dry. Neuro: A&Ox3, normal mood and affect - Labs CBC & Chem 7: 12/14/18 06:52 12/12/18 15:03 Labs: Abnormal Lab Results - Last 24 Hours (Table) 12/13/18 12/13/18 12/13/18 Range/Units 06:09 12:45 16:37 WBC (3.8-10.6) k/uL Neutrophils # (1.3-7.7) k/uL Lymphocytes # (1.0-4.8) k/uL APTT 40.1 H (22.0-30.0) sec POC Glucose (mg/dL) 118 H (75-99) mg/dL Procalcitonin 2.41 H (0.02-0.09) ng/mL 12/13/18 12/13/18 12/14/18 Range/Units 19:39 20:34 06:39 WBC (3.8-10.6) k/uL Neutrophils # (1.3-7.7) k/uL Lymphocytes # (1.0-4.8) k/uL APTT 49.3 H (22.0-30.0) sec POC Glucose (mg/dL) 188 H 146 H (75-99) mg/dL Procalcitonin (0.02-0.09) ng/mL 12/14/18 12/14/18 12/14/18 Range/Units 06:52 06:52 11:48 WBC 12.0 H (3.8-10.6) k/uL Neutrophils # 10.2 H (1.3-7.7) k/uL Lymphocytes # 0.8 L (1.0-4.8) k/uL APTT 53.7 H (22.0-30.0) sec POC Glucose (mg/dL) 140 H (75-99) mg/dL Procalcitonin (0.02-0.09) ng/mL Microbiology - Last 24 Hours (Table) 12/12/18 15:03 Blood Culture - Preliminary Blood No Growth after 24 hours Assessment and Plan Assessment: (1) Sepsis due to pneumonia Current Visit: Yes Status: Acute Code(s): J18.9 - PNEUMONIA, UNSPECIFIED ORGANISM; A41.9 - SEPSIS, UNSPECIFIED ORGANISM SNOMED Code(s): 39595943 (2) Community acquired pneumonia Current Visit: Yes Status: Acute Code(s): J18.9 - PNEUMONIA, UNSPECIFIED ORGANISM SNOMED Code(s): 579185091 (3) Multifocal pneumonia Current Visit: Yes Status: Acute Code(s): J18.9 - PNEUMONIA, UNSPECIFIED ORGANISM SNOMED Code(s): 358963261 (4) Hypertension Current Visit: Yes Status: Acute Code(s): I10 - ESSENTIAL (PRIMARY) HYPERTENSION SNOMED Code(s): 44759343 (5) Hyperlipidemia Current Visit: Yes Status: Acute Code(s): E78.5 - HYPERLIPIDEMIA, UNSPECIFIED SNOMED Code(s): 40213288 (6) Elevated lactic acid level Current Visit: Yes Status: Acute Code(s): R79.89 - OTHER SPECIFIED ABNORMAL FINDINGS OF BLOOD CHEMISTRY SNOMED Code(s): 8703331 (7) Atrial fibrillation Current Visit: Yes Status: Acute Code(s): I48.91 - UNSPECIFIED ATRIAL FIBRILLATION SNOMED Code(s): 97205703 (8) severe pulmonary hypertension (9) moderate to severe tricuspid regurgitation (10) acute COPD exacerbation (11) acute hypoxic respiratory failure secondary to pneumonia, COPD exacerbation (12) diabetes mellitus (13) possible interstitial lung disease, possible malignancy, pulmonary consulted. Plan: Continue on current medication regime ,monitoring and symptomatic treatment. Steroids, Mucinex added to med regime. Eliquis for anticoagulation. Case management to verify prescription coverage for Eliquis. Aggressive pulmonary toileting. Maintain nebulized bronchodilators, Pulmicort Rocephin, Zithromax. Follow blood cultures closely. The impression and plan of care has been dictated as directed. : I performed a history and examination of this patient, discussed the same with the dictator. I agree with the dictator's note ,documented as a scribe. Any additional findings or plans will be noted.
[2018-12-14 16:58] LABS: Glucose,Whole Blood 151 mg/dL (75-99)
[2018-12-14] MEDS: CHOLECALCIFEROL 1,000 UNIT TAB PO SCH (20:30)
[2018-12-14] MEDS: ASPIRIN 81 MG PO SCH (20:30)
[2018-12-14] MEDS: ATORVASTATIN 20 MG TAB PO SCH (20:30)
[2018-12-14] MEDS: traZODone HCL 50 MG TAB PO SCH (20:30)
[2018-12-14 20:38] LABS: Glucose,Whole Blood 260 mg/dL (75-99)
[2018-12-15 06:08] LABS: Glucose,Whole Blood 216 mg/dL (75-99)
[2018-12-15] MEDS: INSULIN ASPART (NovoLOG) 100 UNIT/ML VIAL SQ SCH ×4 (06:19→20:45)
[2018-12-15 08:03] LABS: Basophils # (A) 0.1 k/uL (0-0.2); Basophils % (A) 0 %; Eosinophils % (A) 0 %; HCT 42.4 % (39.0-53.0); HGB 13.2 gm/dL (13.0-17.5); Lymphocytes # (A) 0.5 k/uL (1.0-4.8); Lymphocytes % (A) 4 %; MCH 28.8 pg (25.0-35.0); MCHC 31.2 g/dL (31.0-37.0); MCV 92.4 fL (80.0-100.0); Mean Platelet Volume 7.4; Monocytes # (A) 0.3 k/uL (0-1.0); Monocytes % (A) 2 %; Neutrophils # (A) 12.8 k/uL (1.3-7.7); Neutrophils % (A) 93 %; Platelet Count 309 k/uL (150-450); RBC 4.59 m/uL (4.30-5.90); RDW 13.9 % (11.5-15.5); WBC 13.7 k/uL (3.8-10.6)
[2018-12-15 08:04] LABS: INR 0.9 (<1.2); Prothrombin Time 10.1 sec (9.0-12.0)
[2018-12-15 08:05] LABS: African American GFR (CKD) >90 (>60 ml/min/1.73 sqM); Anion Gap 12 mmol/L; Blood Urea Nitrogen 21 mg/dL (9-20); Calcium 9.9 mg/dL (8.4-10.2); Carbon Dioxide 25 mmol/L (22-30); Chloride 96 mmol/L (98-107); Glucose 243 mg/dL (74-99); Non-African American GFR(CKD) 87 (>60 ml/min/1.73 sqM); Sodium 133 mmol/L (137-145)
[2018-12-15] MEDS: SYMBICORT 160-4.5 MCG INHALER INHALATION SCH ×2 (08:08→20:44)
[2018-12-15] MEDS: amLODIPine 5 MG TAB PO SCH (08:39)
[2018-12-15] MEDS: methylPREDNISolone SOD SUCCI 125 MG/2 ML VIAL IV SCH ×3 (08:39→22:57)
[2018-12-15] MEDS: guaiFENesin 600 MG TABLET.ER PO SCH ×2 (08:39→20:17)
[2018-12-15] MEDS: AZITHROMYCIN 500 MG TAB PO SCH (08:39)
[2018-12-15] MEDS: APIXABAN 5 MG TAB PO SCH ×2 (08:39→20:16)
[2018-12-15] MEDS: LINAGLIPTIN 5 MG TABLET PO SCH (08:39)
[2018-12-15] MEDS: MONTELUKAST 10 MG TAB PO SCH (08:40)
[2018-12-15] MEDS: VALSARTAN 160 MG TAB PO SCH (08:40)
[2018-12-15] MEDS: HYDROCHLOROTHIAZIDE 25 MG TAB PO SCH (08:40)
--- NOTE | 2018-12-15 11:45 | P.PN ---
Subjective Progress Note Date: 12/15/18 This is a very pleasant 78-year-old gentleman who follows with Dr. Yee as his primary care provider. He has a history of diabetes mellitus, hyperlipidemia, hypertension, abdominal hernia with previous hernia repair. He also has a previous history of chronic tobacco dependence and chronic obstruct lui pulmonary disease and follows with Dr. Hodge in our office for the same. He is on Symbicort, Singulair and albuterol in the outpatient setting. He presented here to the emergency room yesterday with complaints of increasing shortness of breath over the past several days. CT angiogram revealed no evidence of pulmonary embolism. There is multifocal bilateral areas of acute alveolar infiltrate or edema most prominent involving the right upper lobe and bilateral lower lobes. He is seen today in consultation on the selective care unit. He is currently sitting up in a chair at the bedside. Awake and alert in no acute distress. He is maintaining O2 saturations in the upper 90s on 4 L/m per nasal cannula. Initiated on ceftriaxone and azithromycin. Currently afebrile. He did have a T-max of 100.3. White count 9.2. Hemoglobin 13.3. Sodium 136. Potassium 4.3. Creatinine 0.88. ProBNP 1330. The patient was found to have a new onset of atrial fibrillation with a rapid ventricular response. He is currently on a heparin drip. Rate is better controlled today. Cardiology is on the case and is planning to transition to Eliquis. Patient is seen today on 12/14/2018 in follow-up on the selective care unit. He is currently resting comfortably in bed. Awake and alert in no acute distress. Denies any worsening shortness of breath, cough or congestion. Continues to maintain good O2 saturations in the 90s on 4 L/m per nasal cannula. Afebrile. White count 12.0. Hemoglobin 13.8. He remains on Symbicort, Singulair, IV Solu-Medrol, ceftriaxone and azithromycin. He is anticoagulated with Eliquis. On today's evaluation of 12/15/2018 I'm seeing this patient for a follow-up. I also had the pleasure to meet his nayana . The bedside. We talked about this situation. The patient has multifocal pulmonary poor infiltrates in the lung bases bilaterally. Were still treating him with pneumonia with understanding that there may be other possibilities such as interstitial lung disease or even possibility of malignancy. Clinically is feeling better. He is in atrial fibrillation still. His that his control. He is anticoagulated with Eliquis. Echo was done and his ejection fraction is around 50-55%. Clinically, he is feeling that he is improving and he is on 2 liters/min 02. 2 ed also severe concentric LVH and pulmonary hypertension. Objective - Vital Signs Vital signs: Vital Signs Temp 98 F 12/15/18 08:00 Pulse 95 12/15/18 08:00 Resp 18 12/15/18 08:00 BP 111/54 12/15/18 08:00 Pulse Ox 95 12/15/18 08:08 Intake & Output 12/14/18 12/15/18 12/15/18 18:59 06:59 18:59 Intake Total 720 20 360 Output Total 500 Balance 220 20 360 Weight 80.6 kg Intake: Oral 720 20 360 Output: Urine 500 Other: Voiding Method Urinal Urinal # Voids 1 - Exam GENERAL EXAM: Alert, cachectic pleasant 78-year-old gentleman on 4 L nasal cannula comfortable in no apparent distress. HEAD: Normocephalic. EYES: Normal reaction of pupils, equal size. NOSE: Clear with pink turbinates. THROAT: No erythema or exudates. NECK: No masses, no JVD. CHEST: No chest wall deformity. LUNGS: Equal air entry with crackles in the bilateral posterior bases, diminished. CVS: S1 and S2 normal with no audible murmur, irregular rhythm. ABDOMEN: No hepatosplenomegaly, normal bowel sounds, no guarding or rigidity. SPINE: No scoliosis or deformity SKIN: No rashes CENTRAL NERVOUS SYSTEM: No focal deficits, tone is normal in all 4 extremities. EXTREMITIES: There is no peripheral edema. No clubbing, no cyanosis. Peripheral pulses are intact. - Labs CBC & Chem 7: 12/15/18 06:42 12/15/18 06:42 Labs: Abnormal Lab Results - Last 24 Hours (Table) 12/14/18 12/14/18 12/14/18 Range/Units 11:48 16:56 20:37 WBC (3.8-10.6) k/uL Neutrophils # (1.3-7.7) k/uL Lymphocytes # (1.0-4.8) k/uL Sodium (137-145) mmol/L Chloride (98-107) mmol/L BUN (9-20) mg/dL Glucose (74-99) mg/dL POC Glucose (mg/dL) 140 H 151 H 260 H (75-99) mg/dL 12/15/18 12/15/18 12/15/18 Range/Units 06:07 06:42 06:42 WBC 13.7 H (3.8-10.6) k/uL Neutrophils # 12.8 H (1.3-7.7) k/uL Lymphocytes # 0.5 L (1.0-4.8) k/uL Sodium 133 L (137-145) mmol/L Chloride 96 L (98-107) mmol/L BUN 21 H (9-20) mg/dL Glucose 243 H (74-99) mg/dL POC Glucose (mg/dL) 216 H (75-99) mg/dL Microbiology - Last 24 Hours (Table) 12/12/18 15:03 Blood Culture - Preliminary Blood No Growth after 48 hours Assessment and Plan Plan: #1 Acute hypoxic respiratory failure secondary to bilateral infiltrates with possible pneumonia versus interstitial lung disease or remotely cancer. The patient's pulmonary infiltrates are rather coarse and granular and I'm a bit concerned of a malignancy process. For that reason I'm going to monitor this pulmonary infiltrates and a follow-up chest x-ray make sure there is complete clearing. If not, a biopsy will be needed. #2 New onset atrial fibrillation with a rapid ventricular response currently on a heparin drip. He transitioned to Eliquis. #3 Acute exacerbation of chronic obstructive pulmonary disease secondary to above. #4 Previous history of chronic tobacco dependence. #5 Hypertension. #6 Hyperlipidemia. #7 Diabetes mellitus. Plan Continue same antibiotic coverage. Repeat chest x-ray in the morning with PA and lateral views and compared to the old x-rays. Clinically is improving is on 2 L of oxygen by nasal cannula. A. fib is being treated. Consider bronchoscopy with biopsies if no complete clearing of his pulmonary infiltrates. Family was made aware of this abnormalities and the understand the disease processes and they verbalized understanding on his condition.
[2018-12-15 11:56] LABS: Glucose,Whole Blood 262 mg/dL (75-99)
--- NOTE | 2018-12-15 12:18 | XR ---
EXAMINATION TYPE: XR chest 2V DATE OF EXAM: 12/15/2018 HISTORY: pneumonia. REFERENCE: Previous study dated 11/07 16. FINDINGS: Lung volumes are prominent. The right upper lobe airspace disease as well as bibasilar airs pace disease. There are small, bilateral effusions. The heart is mildly enlarged. IMPRESSION: 1. MILD CARDIOMEGALY. 2. BILATERAL AREAS OF INFILTRATE LIKELY REPRESENTING PNEUMONIA. 3. BILATERAL EFFUSIONS. 4. I SUSPECT UNDERLYING COPD.
[2018-12-15] MEDS ORDERED: INSULIN ASPART (NovoLOG) 100 UNIT/ML VIAL SQ ONE ×3 (12:29→20:37)
--- NOTE | 2018-12-15 13:57 | P.PN ---
Subjective Progress Note Date: 12/15/18 Principal diagnosis: #1 Acute hypoxic respiratory failure secondary to bilateral infiltrates with possible pneumonia versus interstitial lung disease or remotely cancer #2 New onset atrial fibrillation with a rapid ventricular response #3 Acute exacerbation of chronic obstructive pulmonary disease 12/15/2018 Patient is seen and evaluated sitting up in the bedside chair with family members present in the room The patient has multifocal pulmonary poor infiltrates in the lung bases bilaterally. Were still treating him with pneumonia with understanding that there may be other possibilities such as interstitial lung disease or even possibility of malignancy. Clinically is feeling better. He is in atrial fibrillation; remains rate controlled without any rate controlling agents and anticoagulated with Eliquis. Echo was done and his ejection fraction is around 50-55%. Clinically, he is feeling that he is improving and he is on 2 liters/min 02. 2 ed also severe concentric LVH and pulmonary hypertension. Objective - Vital Signs Vital signs: Vital Signs Temp 98 F 12/15/18 08:00 Pulse 95 12/15/18 08:00 Resp 18 12/15/18 08:00 BP 111/54 12/15/18 08:00 Pulse Ox 95 12/15/18 08:08 Intake & Output 12/14/18 12/15/18 12/15/18 18:59 06:59 18:59 Intake Total 720 20 360 Output Total 500 Balance 220 20 360 Weight 80.6 kg Intake: Oral 720 20 360 Output: Urine 500 Other: Voiding Method Urinal Urinal # Voids 1 - Exam PHYSICAL EXAMINATION: GENERAL: The patient is alert and oriented x3, not in any acute distress. Well developed, well nourished. HEENT: Pupils are round and equally reacting to light. EOMI. No scleral icterus. No conjunctival pallor. Normocephalic, atraumatic. No pharyngeal erythema. No thyromegaly. CARDIOVASCULAR: S1 and S2 present. No murmurs, rubs, or gallops. PULMONARY: Chest is clear to auscultation, no wheezing or crackles. ABDOMEN: Soft, nontender, nondistended, normoactive bowel sounds. No palpable organomegaly. MUSCULOSKELETAL: No joint swelling or deformity. EXTREMITIES: No cyanosis, clubbing, or pedal edema. NEUROLOGICAL: Gross neurological examination did not reveal any focal deficits. SKIN: No rashes. - Labs CBC & Chem 7: 12/15/18 06:42 12/15/18 06:42 Labs: Abnormal Lab Results - Last 24 Hours (Table) 12/14/18 12/14/18 12/14/18 Range/Units 11:48 16:56 20:37 WBC (3.8-10.6) k/uL Neutrophils # (1.3-7.7) k/uL Lymphocytes # (1.0-4.8) k/uL Sodium (137-145) mmol/L Chloride (98-107) mmol/L BUN (9-20) mg/dL Glucose (74-99) mg/dL POC Glucose (mg/dL) 140 H 151 H 260 H (75-99) mg/dL 12/15/18 12/15/18 12/15/18 Range/Units 06:07 06:42 06:42 WBC 13.7 H (3.8-10.6) k/uL Neutrophils # 12.8 H (1.3-7.7) k/uL Lymphocytes # 0.5 L (1.0-4.8) k/uL Sodium 133 L (137-145) mmol/L Chloride 96 L (98-107) mmol/L BUN 21 H (9-20) mg/dL Glucose 243 H (74-99) mg/dL POC Glucose (mg/dL) 216 H (75-99) mg/dL Microbiology - Last 24 Hours (Table) 12/12/18 15:03 Blood Culture - Preliminary Blood No Growth after 48 hours Assessment and Plan Assessment: #1 Acute hypoxic respiratory failure secondary to bilateral infiltrates with possible pneumonia versus interstitial lung disease or remotely cancer. The patient's pulmonary infiltrates are rather coarse and granular and I'm a bit concerned of a malignancy process. For that reason I'm going to monitor this pulmonary infiltrates and a follow-up chest x-ray make sure there is complete clearing. If not, a biopsy will be needed. - clinically improving; pulmonary service is following and recommending possible discharge in next 24-48 hours; patient remains on bronchodilator nebulizer treatments and IV steroids #2 New onset atrial fibrillation with a rapid ventricular response; on a heparin drip- transitioned to Eliquis. #3 Acute exacerbation of chronic obstructive pulmonary disease - we will continue with IV steroids and switch to oral Agreeable with pulmonary service; continue with antibiotic coverage; coronary service is recommending chest x-rays tomorrow morning before any further r ecommendations; patient fell possibly have bronchoscopy if checks x-ray shows no improvement in pulmonary infiltrates #5 Hypertension; stable on home dose of amlodipine 5 mg daily #6 Hyperlipidemia; Lipitor 20 mg by mouth daily at bedtime #7 Diabetes mellitus; continue with Accu-Cheks every before meals and at bedtime with insulin sliding scale DVT prophylaxis; systemic anticoagulation/SCDs CODE STATUS; full code Time with Patient: Greater than 30
--- NOTE | 2018-12-15 16:33 | P.PN ---
Subjective This is Mirian Santo PA-C dictating a progress note on this patient The patient was interviewed and examined by me as well as by Dr. Welsh Case discussed with Dr. Welsh and he agrees with the plan of care IMPRESSION / ASSESSMENT: Altered mental status, possibly secondary to TIA, neurology following Persistent atrial fibrillation, rate controlled on telemetry overnight, anticoagulated with eliquis History of CHF, stable from a heart failure symptoms standpoint Hypertension, blood pressure well controlled Dementia Dyslipidemia Hyponatremia, improved PLAN: Continue current cardiac medication regimen Workup for altered mental status by primary care team and neurology HPI/interval history Patient is an 84-year-old female with a past medical history significant for atrial fibrillation, TIA, heart failure, hypertension, and dementia who presented with altered mental status and strokelike symptoms. Brain CT did not show any acute abnormalities. Telemetry overnight reveals atrial fibrillation with rate controlled. Patient seen resting comfortably in bed. States she has no complaints. Daughter is at the bedside and states she has been refusing medications. States she has been combative. Patient refuses exam. States "she is doing great". EXAMINATION Temperature 97.7F, pulse 86, respirations 18, blood pressure 110/59, oxygen saturation 99% on 2 L nasal cannula Patient refuses exam REVIEW OF LABS, ECG WBC 16.3, hemoglobin 10.6, platelets 283, potassium 3.9, BUN 18, creatinine 1.18, sodium 134 Objective - Vital Signs Vital signs: Vital Signs Temp 97.4 F L 12/15/18 12:00 Pulse 87 12/15/18 12:00 Resp 18 12/15/18 12:00 BP 107/68 12/15/18 12:00 Pulse Ox 96 12/15/18 12:00 Intake & Output 12/14/18 12/15/18 12/15/18 18:59 06:59 18:59 Intake Total 720 20 770 Output Total 500 Balance 220 20 770 Weight 80.6 kg Intake: IV 50 cefTRIAXone 1 gm In 50 Sodium Chloride 0.9% 50 ml @ 100 mls/hr IVPB Q24HR [facility] Rx#:[id number] Oral 720 20 720 Output: Urine 500 Other: Voiding Method Urinal Urinal # Voids 1 - Labs CBC & Chem 7: 12/15/18 06:42 12/15/18 06:42 Labs: Abnormal Lab Results - Last 24 Hours (Table) 12/14/18 12/14/18 12/15/18 Range/Units 16:56 20:37 06:07 WBC (3.8-10.6) k/uL Neutrophils # (1.3-7.7) k/uL Lymphocytes # (1.0-4.8) k/uL Sodium (137-145) mmol/L Chloride (98-107) mmol/L BUN (9-20) mg/dL Glucose (74-99) mg/dL POC Glucose (mg/dL) 151 H 260 H 216 H (75-99) mg/dL 12/15/18 12/15/18 12/15/18 Range/Units 06:42 06:42 11:51 WBC 13.7 H (3.8-10.6) k/uL Neutrophils # 12.8 H (1.3-7.7) k/uL Lymphocytes # 0.5 L (1.0-4.8) k/uL Sodium 133 L (137-145) mmol/L Chloride 96 L (98-107) mmol/L BUN 21 H (9-20) mg/dL Glucose 243 H (74-99) mg/dL POC Glucose (mg/dL) 262 H (75-99) mg/dL Microbiology - Last 24 Hours (Table) 12/12/18 15:03 Blood Culture - Preliminary Blood No Growth after 48 hours
[2018-12-15 16:42] LABS: Glucose,Whole Blood 301 mg/dL (75-99)
--- NOTE | 2018-12-15 16:42 | P.PN ---
Subjective This is Mirian Santo PA-C dictating a progress note on this patient The patient was interviewed and examined by me as well as by Dr. Welsh Case discussed with Dr. Welsh and he agrees with the plan of care IMPRESSION / ASSESSMENT: Shortness of breath, likely secondary to pneumonia, currently on antibiotics Atrial fibrillation controlled ventricular response, rates have been in the 90s Hypertension Diabetes Dyslipidemia Asthma PLAN: Continue anticoagulation with eliquis Continue current medication regimen and continue to monitor heart rate further evaluation of rate control outpatient when his pneumonia improves and we will adjust his rate control medications at that time if needed If blood pressure is elevated we will increase his amlodipine HPI/interval history Patient is a 78-year-old male with past medical history of hypertension, diabetes, asthma who presented with complaints of shortness of breath and cough. He was found to be in atrial fibrillation, rate 90. He is also being treated for pneumonia. Telemetry reveals A. fib with rates in the 90s. Patient seen and examined resting comfortably in bed. States his energy is improving. He is walking around and states his breathing is improving. No dizziness or palpitations. He was started on eliquis. EXAMINATION Temperature 90.8F, pulse 87, respirations 18, blood pressure 107/68, oxygen saturation 96% on 2 L nasal cannula Patient seen and examined sitting in bed, in no acute distress Lungs are diminished bilaterally Heart is irregularly irregular No elevated JVD No lower extremity edema REVIEW OF LABS, ECG WBC 13.7, hemoglobin 13.3, platelets 309, potassium 4.0, BUN 21, creatinine 0.77 Objective - Vital Signs Vital signs: Vital Signs Temp 97.4 F L 12/15/18 12:00 Pulse 87 12/15/18 12:00 Resp 18 12/15/18 12:00 BP 107/68 12/15/18 12:00 Pulse Ox 96 12/15/18 12:00 Intake & Output 12/14/18 12/15/18 12/15/18 18:59 06:59 18:59 Intake Total 720 20 770 Output Total 500 Balance 220 20 770 Weight 80.6 kg Intake: IV 50 cefTRIAXone 1 gm In 50 Sodium Chloride 0.9% 50 ml @ 100 mls/hr IVPB Q24HR [facility] Rx#:[id number] Oral 720 20 720 Output: Urine 500 Other: Voiding Method Urinal Urinal # Voids 1 - Labs CBC & Chem 7: 12/15/18 06:42 12/15/18 06:42 Labs: Abnormal Lab Results - Last 24 Hours (Table) 12/14/18 12/14/18 12/15/18 Range/Units 16:56 20:37 06:07 WBC (3.8-10.6) k/uL Neutrophils # (1.3-7.7) k/uL Lymphocytes # (1.0-4.8) k/uL Sodium (137-145) mmol/L Chloride (98-107) mmol/L BUN (9-20) mg/dL Glucose (74-99) mg/dL POC Glucose (mg/dL) 151 H 260 H 216 H (75-99) mg/dL 12/15/18 12/15/18 12/15/18 Range/Units 06:42 06:42 11:51 WBC 13.7 H (3.8-10.6) k/uL Neutrophils # 12.8 H (1.3-7.7) k/uL Lymphocytes # 0.5 L (1.0-4.8) k/uL Sodium 133 L (137-145) mmol/L Chloride 96 L (98-107) mmol/L BUN 21 H (9-20) mg/dL Glucose 243 H (74-99) mg/dL POC Glucose (mg/dL) 262 H (75-99) mg/dL Microbiology - Last 24 Hours (Table) 12/12/18 15:03 Blood Culture - Preliminary Blood No Growth after 48 hours
[2018-12-15] MEDS: ATORVASTATIN 20 MG TAB PO SCH (20:16)
[2018-12-15] MEDS: CHOLECALCIFEROL 1,000 UNIT TAB PO SCH (20:16)
[2018-12-15] MEDS: ASPIRIN 81 MG PO SCH (20:16)
[2018-12-15] MEDS: traZODone HCL 50 MG TAB PO SCH (20:17)
[2018-12-15 20:18] LABS: Glucose,Whole Blood 308 mg/dL (75-99)
[2018-12-15] MEDS: TEMAZEPAM 15 MG CAP PO PRN (22:56)
[2018-12-16 06:05] LABS: Glucose,Whole Blood 238 mg/dL (75-99)
[2018-12-16] MEDS: INSULIN ASPART (NovoLOG) 100 UNIT/ML VIAL SQ SCH ×4 (06:28→21:25)
[2018-12-16 06:55] LABS: African American GFR (CKD) >90 (>60 ml/min/1.73 sqM); Anion Gap 11 mmol/L; Blood Urea Nitrogen 35 mg/dL (9-20); Calcium 10.4 mg/dL (8.4-10.2); Carbon Dioxide 22 mmol/L (22-30); Chloride 98 mmol/L (98-107); Glucose 252 mg/dL (74-99); Non-African American GFR(CKD) 86 (>60 ml/min/1.73 sqM); Sodium 131 mmol/L (137-145)
[2018-12-16 06:57] LABS: Basophils # (A) 0.1 k/uL (0-0.2); Basophils % (A) 0 %; Eosinophils # (A) 0.1 k/uL (0-0.7); Eosinophils % (A) 0 %; HCT 41.6 % (39.0-53.0); HGB 13.9 gm/dL (13.0-17.5); Lymphocytes # (A) 0.8 k/uL (1.0-4.8); Lymphocytes % (A) 4 %; MCH 30.4 pg (25.0-35.0); MCHC 33.4 g/dL (31.0-37.0); MCV 91.1 fL (80.0-100.0); Mean Platelet Volume 7.2; Monocytes # (A) 0.8 k/uL (0-1.0); Monocytes % (A) 4 %; Neutrophils # (A) 18.6 k/uL (1.3-7.7); Neutrophils % (A) 91 %; Platelet Count 395 k/uL (150-450); RBC 4.56 m/uL (4.30-5.90); RDW 13.6 % (11.5-15.5); WBC 20.5 k/uL (3.8-10.6)
[2018-12-16 07:00] LABS: Potassium 5.2 mmol/L (3.5-5.1)
[2018-12-16] MEDS: methylPREDNISolone SOD SUCCI 125 MG/2 ML VIAL IV SCH ×3 (07:42→23:35)
[2018-12-16] MEDS: APIXABAN 5 MG TAB PO SCH ×2 (07:44→21:24)
[2018-12-16] MEDS: AZITHROMYCIN 500 MG TAB PO SCH (07:44)
[2018-12-16] MEDS: amLODIPine 5 MG TAB PO SCH (07:44)
[2018-12-16] MEDS: VALSARTAN 160 MG TAB PO SCH (07:45)
[2018-12-16] MEDS: guaiFENesin 600 MG TABLET.ER PO SCH ×2 (07:45→21:24)
[2018-12-16] MEDS: MONTELUKAST 10 MG TAB PO SCH (07:45)
[2018-12-16] MEDS: LINAGLIPTIN 5 MG TABLET PO SCH (07:45)
[2018-12-16] MEDS: HYDROCHLOROTHIAZIDE 25 MG TAB PO SCH (07:45)
[2018-12-16] MEDS: SYMBICORT 160-4.5 MCG INHALER INHALATION SCH ×2 (08:27→19:31)
[2018-12-16 11:35] LABS: Glucose,Whole Blood 283 mg/dL (75-99)
[2018-12-16] MEDS ORDERED: SODIUM POLYSTYRENE SULFONATE 15 GM/60 ML BOTTLE PO STA (13:49)
--- NOTE | 2018-12-16 15:32 | P.PN ---
Subjective this is Mirian Santo PA-C dictating a progress note on this patient The patient was interviewed and examined by me as well as by Dr. Welsh Case discussed with Dr. Welsh and he agrees with the plan of care IMPRESSION / ASSESSMENT: Shortness of breath, likely secondary to pneumonia, currently on antibiotics Atrial fibrillation controlled ventricular response, rates in the 80s to 90s on telemetry overnight Hypertension, blood pressure is been stable Diabetes Dyslipidemia Asthma Echo showing EF 50-55% PLAN: Continue anticoagulation with eliquis Continue current medication regimen and continue to monitor heart rate further evaluation of rate control outpatient when his pneumonia improves and we will adjust his rate control medications at that time if needed HPI/interval history Patient is a 78-year-old male with past medical history of hypertension, diabetes, asthma who presented with complaints of shortness of breath and cough. He was found to be in atrial fibrillation, rate 90. He is also being treated for pneumonia. Telemetry reveals A. fib with rates in the 80-90s. Patient seen and examined sitting up in his chair. States he has been trying to walk around but he has had a problem with desaturating. Denies dizziness, palpitations or chest pain. EXAMINATION Temperature 97.3, pulse 86, respirations 20, blood pressure 125/85, oxygen saturation 96% on 2 L nasal cannula Patient seen and examined sitting up in the chair, in no acute distress Lungs are diminished bilaterally with few crackles at the bases Heart is irregularly irregular No elevated JVD No lower extremity edema REVIEW OF LABS, ECG WBC 20.5, potassium 5.2, BUN 35, creatinine 0.78 Objective - Vital Signs Vital signs: Vital Signs Temp 97.3 F L 12/16/18 12:00 Pulse 86 12/16/18 12:00 Resp 20 12/16/18 12:00 BP 125/85 12/16/18 12:00 Pulse Ox 96 12/16/18 12:00 Intake & Output 12/15/18 12/16/18 12/16/18 18:59 06:59 18:59 Intake Total 1130 10 900 Balance 1130 10 900 Weight 84.2 kg Intake: IV 50 10 60 0.9 10 10 cefTRIAXone 1 gm In 50 50 Sodium Chloride 0.9% 50 ml @ 100 mls/hr IVPB Q24HR [facility] Rx#:[id number] Oral 1080 840 Other: Voiding Method Toilet Toilet Urinal Urinal # Voids 1 1 - Labs CBC & Chem 7: 12/16/18 06:12 12/16/18 06:12 Labs: Abnormal Lab Results - Last 24 Hours (Table) 12/15/18 12/15/18 12/16/18 Range/Units 16:39 20:16 06:04 WBC (3.8-10.6) k/uL Neutrophils # (1.3-7.7) k/uL Lymphocytes # (1.0-4.8) k/uL Sodium (137-145) mmol/L Potassium (3.5-5.1) mmol/L BUN (9-20) mg/dL Glucose (74-99) mg/dL POC Glucose (mg/dL) 301 H 308 H 238 H (75-99) mg/dL Calcium (8.4-10.2) mg/dL 12/16/18 12/16/18 12/16/18 Range/Units 06:12 06:12 11:33 WBC 20.5 H (3.8-10.6) k/uL Neutrophils # 18.6 H (1.3-7.7) k/uL Lymphocytes # 0.8 L (1.0-4.8) k/uL Sodium 131 L (137-145) mmol/L Potassium 5.2 H (3.5-5.1) mmol/L BUN 35 H (9-20) mg/dL Glucose 252 H (74-99) mg/dL POC Glucose (mg/dL) 283 H (75-99) mg/dL Calcium 10.4 H (8.4-10.2) mg/dL Microbiology - Last 24 Hours (Table) 12/12/18 15:03 Blood Culture - Preliminary Blood No Growth after 72 hours
--- NOTE | 2018-12-16 16:11 | P.PN ---
Subjective Progress Note Date: 12/16/18 Seasonal on today's evaluation of 12/16/2018 I'm seeing the patient for a follow-up. Overall he is improved. His oxidation is improved. He is currently on room air oxygen. He still desaturating with activity. The chest x-ray also shows improvement in the right lung infiltrate. It seems that we are dealing with a bacterial pneumonia and the patient is improving on a combination of Rocephin and Zithromax. No new complaints. No nausea or vomiting. He has expressed increased swelling lower extremities and he would benefit from diuretics. Echo shows an ejection fraction of 50-55%. He has concentric LVH. I will basically diabetes mellitus, hyperlipidemia and hypertension and previous history of abdominal hernia postrepair. He is known to have COPD followed up in our office. Objective - Vital Signs Vital signs: Vital Signs Temp 97.3 F L 12/16/18 12:00 Pulse 86 12/16/18 12:00 Resp 20 12/16/18 12:00 BP 125/85 12/16/18 12:00 Pulse Ox 96 12/16/18 12:00 Intake & Output 12/15/18 12/16/18 12/16/18 18:59 06:59 18:59 Intake Total 1130 10 900 Balance 1130 10 900 Weight 84.2 kg Intake: IV 50 10 60 0.9 10 10 cefTRIAXone 1 gm In 50 50 Sodium Chloride 0.9% 50 ml @ 100 mls/hr IVPB Q24HR [facility] Rx#:[id number] Oral 1080 840 Other: Voiding Method Toilet Toilet Urinal Urinal # Voids 1 1 - Exam GENERAL EXAM: Alert, cachectic pleasant 78-year-old gentleman on 4 L nasal cannula comfortable in no apparent distress. HEAD: Normocephalic. EYES: Normal reaction of pupils, equal size. NOSE: Clear with pink turbinates. THROAT: No erythema or exudates. NECK: No masses, no JVD. CHEST: No chest wall deformity. LUNGS: Equal air entry with crackles in the bilateral posterior bases, diminished. CVS: S1 and S2 normal with no audible murmur, irregular rhythm. ABDOMEN: No hepatosplenomegaly, normal bowel sounds, no guarding or rigidity. SPINE: No scoliosis or deformity SKIN: No rashes CENTRAL NERVOUS SYSTEM: No focal deficits, tone is normal in all 4 extremities. EXTREMITIES: There is no peripheral edema. No clubbing, no cyanosis. Peripheral pulses are intact. - Labs CBC & Chem 7: 12/16/18 06:12 12/16/18 06:12 Labs: Abnormal Lab Results - Last 24 Hours (Table) 12/15/18 12/15/18 12/16/18 Range/Units 16:39 20:16 06:04 WBC (3.8-10.6) k/uL Neutrophils # (1.3-7.7) k/uL Lymphocytes # (1.0-4.8) k/uL Sodium (137-145) mmol/L Potassium (3.5-5.1) mmol/L BUN (9-20) mg/dL Glucose (74-99) mg/dL POC Glucose (mg/dL) 301 H 308 H 238 H (75-99) mg/dL Calcium (8.4-10.2) mg/dL 12/16/18 12/16/18 12/16/18 Range/Units 06:12 06:12 11:33 WBC 20.5 H (3.8-10.6) k/uL Neutrophils # 18.6 H (1.3-7.7) k/uL Lymphocytes # 0.8 L (1.0-4.8) k/uL Sodium 131 L (137-145) mmol/L Potassium 5.2 H (3.5-5.1) mmol/L BUN 35 H (9-20) mg/dL Glucose 252 H (74-99) mg/dL POC Glucose (mg/dL) 283 H (75-99) mg/dL Calcium 10.4 H (8.4-10.2) mg/dL Microbiology - Last 24 Hours (Table) 12/12/18 15:03 Blood Culture - Preliminary Blood No Growth after 72 hours Assessment and Plan Plan: #1 Acute hypoxic respiratory failure secondary to bilateral infiltrates with possible pneumonia versus interstitial lung disease or remotely cancer. The patient's pulmonary infiltrates are rather coarse and granular and I'm a bit concerned of a malignancy process. For that reason I'm going to monitor this pulmonary infiltrates and a follow-up chest x-ray make sure there is complete clearing. If not, a biopsy will be needed. #2 New onset atrial fibrillation with a rapid ventricular response currently on a heparin drip. He transitioned to Eliquis. #3 Acute exacerbation of chronic obstructive pulmonary disease secondary to above. #4 Previous history of chronic tobacco dependence. #5 Hypertension. #6 Hyperlipidemia. #7 Diabetes mellitus. Plan The patient is improving clinically and radiographically. The chest x-ray looks better. He is less short of breath. oxygenation improved. I'm happy with his progress. I think this is bacterial pneumonia more than any other any other etiology. No sputum cultures. No blood cultures. The blood cultures been negative. We'll start him on Lasix 40 mg every 12 hours. Repeat chest x-ray in a.m. Anticipate further recovery. He is on Eliquis. He is on bronchodilators. We'll continue to follow.
--- NOTE | 2018-12-16 17:06 | P.PN ---
Subjective Progress Note Date: 12/16/18 Principal diagnosis: #1 Acute hypoxic respiratory failure secondary to bilateral infiltrates with possible pneumonia versus interstitial lung disease or remotely cancer #2 New onset atrial fibrillation with a rapid ventricular response #3 Acute exacerbation of chronic obstructive pulmonary disease 12/15/2018 Patient is seen and evaluated sitting up in the bedside chair with family members present in the room The patient has multifocal pulmonary poor infiltrates in the lung bases bilaterally. Were still treating him with pneumonia with understanding that there may be other possibilities such as interstitial lung disease or even possibility of malignancy. Clinically is feeling better. He is in atrial fibrillation; remains rate controlled without any rate controlling agents and anticoagulated with Eliquis. Echo was done and his ejection fraction is around 50-55%. Clinically, he is feeling that he is improving and he is on 2 liters/min 02. 2 ed also severe concentric LVH and pulmonary hypertension. 12/16/2018 Patient is seen and evaluated for follow-up at bedside; patient does report improvement in breathing while at rest but somewhat excessive shortness of breath with ambulation; according to RN at bedside patient's SpO2 dropped down to 80s during ambulation without oxygen; overall oxygenation is improved. He is currently on room air oxygen. The chest x-ray also shows improvement in the right lung infiltrate. It seems that we are dealing with a bacterial pneumonia and the patient is improving on a combination of Rocephin and Zithromax. No new complaints. No nausea or vomiting. He has expressed increased swelling lower extremities and he would benefit from diuretics. Echo shows an ejection fraction of 50-55%. Pulmonary service is following and recommending to continue with current treatment; patient will be checked for oxygen post discharge if remains hypoxic upon ambulation. Objective - Vital Signs Vital signs: Vital Signs Temp 97.3 F L 12/16/18 12:00 Pulse 86 12/16/18 12:00 Resp 20 12/16/18 12:00 BP 125/85 12/16/18 12:00 Pulse Ox 96 12/16/18 12:00 Intake & Output 12/15/18 12/16/18 12/16/18 18:59 06:59 18:59 Intake Total 1130 10 900 Balance 1130 10 900 Weight 84.2 kg Intake: IV 50 10 60 0.9 10 10 cefTRIAXone 1 gm In 50 50 Sodium Chloride 0.9% 50 ml @ 100 mls/hr IVPB Q24HR [facility] Rx#:[id number] Oral 1080 840 Other: Voiding Method Toilet Toilet Urinal Urinal # Voids 1 1 - Exam PHYSICAL EXAMINATION: GENERAL: The patient is alert and oriented x3, not in any acute distress. Well developed, well nourished. HEENT: Pupils are round and equally reacting to light. EOMI. No scleral icterus. No conjunctival pallor. Normocephalic, atraumatic. No pharyngeal erythema. No thyromegaly. CARDIOVASCULAR: S1 and S2 present. No murmurs, rubs, or gallops. PULMONARY: Chest is clear to auscultation, no wheezing or crackles. ABDOMEN: Soft, nontender, nondistended, normoactive bowel sounds. No palpable organomegaly. MUSCULOSKELETAL: No joint swelling or deformity. EXTREMITIES: No cyanosis, clubbing, or pedal edema. NEUROLOGICAL: Gross neurological examination did not reveal any focal deficits. SKIN: No rashes. - Labs CBC & Chem 7: 12/16/18 06:12 12/16/18 06:12 Labs: Abnormal Lab Results - Last 24 Hours (Table) 12/15/18 12/15/18 12/16/18 Range/Units 16:39 20:16 06:04 WBC (3.8-10.6) k/uL Neutrophils # (1.3-7.7) k/uL Lymphocytes # (1.0-4.8) k/uL Sodium (137-145) mmol/L Potassium (3.5-5.1) mmol/L BUN (9-20) mg/dL Glucose (74-99) mg/dL POC Glucose (mg/dL) 301 H 308 H 238 H (75-99) mg/dL Calcium (8.4-10.2) mg/dL 12/16/18 12/16/18 12/16/18 Range/Units 06:12 06:12 11:33 WBC 20.5 H (3.8-10.6) k/uL Neutrophils # 18.6 H (1.3-7.7) k/uL Lymphocytes # 0.8 L (1.0-4.8) k/uL Sodium 131 L (137-145) mmol/L Potassium 5.2 H (3.5-5.1) mmol/L BUN 35 H (9-20) mg/dL Glucose 252 H (74-99) mg/dL POC Glucose (mg/dL) 283 H (75-99) mg/dL Calcium 10.4 H (8.4-10.2) mg/dL Microbiology - Last 24 Hours (Table) 12/12/18 15:03 Blood Culture - Preliminary Blood No Growth after 72 hours Assessment and Plan Assessment: 1 Acute hypoxic respiratory failure secondary to bilateral infiltrates with possible pneumonia versus interstitial lung disease or remotely cancer. The patient's pulmonary infiltrates are rather coarse and granular and I'm a bit concerned of a malignancy process. For that reason I'm going to monitor this pulmonary infiltrates and a follow-up chest x-ray make sure there is complete clearing. If not, a biopsy will be needed. - clinically improving; pulmonary service is following and recommending possible discharge in next 24-48 hours; patient remains on bronchodilator nebulizer treatments and IV steroids 2 New onset atrial fibrillation with a rapid ventricular response; on a heparin drip- transitioned to Eliquis. 3 Acute exacerbation of chronic obstructive pulmonary disease - we will continue with IV steroids and switch to oral Agreeable with pulmonary service; continue with antibiotic coverage; coronary service is recommending chest x-rays tomorrow morning before any further recommendations; patient fell possibly have bronchoscopy if checks x-ray shows no improvement in pulmonary infiltrates 5 Hypertension; stable on home dose of amlodipine 5 mg daily 6 Hyperlipidemia; Lipitor 20 mg by mouth daily at bedtime 7 Diabetes mellitus; continue with Accu-Cheks every before meals and at bedtime with insulin sliding scale DVT prophylaxis; systemic anticoagulation/SCDs CODE STATUS; full code Time with Patient: Greater than 30
[2018-12-16 17:11] LABS: Glucose,Whole Blood 395 mg/dL (75-99)
[2018-12-16 21:21] LABS: Glucose,Whole Blood 301 mg/dL (75-99)
[2018-12-16] MEDS: FUROSEMIDE 10 MG/ML 4 ML VIAL IV SCH (21:24)
[2018-12-16] MEDS: traZODone HCL 50 MG TAB PO SCH (21:24)
[2018-12-16] MEDS: ASPIRIN 81 MG PO SCH (21:24)
[2018-12-16] MEDS: ATORVASTATIN 20 MG TAB PO SCH (21:24)
[2018-12-16] MEDS: CHOLECALCIFEROL 1,000 UNIT TAB PO SCH (21:24)
[2018-12-16] MEDS: INSULIN DETEMIR (LEVEMIR) 100 UNIT/ML SYR SQ SCH (21:25)
[2018-12-16] MEDS: TEMAZEPAM 15 MG CAP PO PRN (23:35)
[2018-12-17 06:25] LABS: Glucose,Whole Blood 170 mg/dL (75-99)
[2018-12-17] MEDS: INSULIN ASPART (NovoLOG) 100 UNIT/ML VIAL SQ SCH ×4 (06:27→20:28)
[2018-12-17 07:09] LABS: Basophils % (A) 0 %; Eosinophils % (A) 0 %; HCT 37.4 % (39.0-53.0); HGB 12.6 gm/dL (13.0-17.5); Lymphocytes # (A) 0.7 k/uL (1.0-4.8); Lymphocytes % (A) 5 %; MCH 30.3 pg (25.0-35.0); MCHC 33.7 g/dL (31.0-37.0); MCV 89.8 fL (80.0-100.0); Mean Platelet Volume 6.4; Monocytes # (A) 0.5 k/uL (0-1.0); Monocytes % (A) 4 %; Neutrophils # (A) 11.7 k/uL (1.3-7.7); Neutrophils % (A) 90 %; Platelet Count 388 k/uL (150-450); RBC 4.16 m/uL (4.30-5.90); RDW 13.6 % (11.5-15.5)
[2018-12-17 07:24] LABS: African American GFR (CKD) >90 (>60 ml/min/1.73 sqM); Anion Gap 7 mmol/L; Blood Urea Nitrogen 37 mg/dL (9-20); Carbon Dioxide 28 mmol/L (22-30); Chloride 100 mmol/L (98-107); Glucose 144 mg/dL (74-99); Magnesium 2.1 mg/dL (1.6-2.3); Non-African American GFR(CKD) 83 (>60 ml/min/1.73 sqM); Sodium 135 mmol/L (137-145)
[2018-12-17] MEDS: SYMBICORT 160-4.5 MCG INHALER INHALATION SCH ×2 (08:08→19:43)
[2018-12-17] MEDS: AZITHROMYCIN 500 MG TAB PO SCH (08:45)
[2018-12-17] MEDS: amLODIPine 5 MG TAB PO SCH (08:45)
[2018-12-17] MEDS: APIXABAN 5 MG TAB PO SCH ×2 (08:45→20:26)
[2018-12-17] MEDS: VALSARTAN 160 MG TAB PO SCH (08:45)
[2018-12-17] MEDS: MONTELUKAST 10 MG TAB PO SCH (08:45)
[2018-12-17] MEDS: guaiFENesin 600 MG TABLET.ER PO SCH ×2 (08:45→20:27)
[2018-12-17] MEDS: HYDROCHLOROTHIAZIDE 25 MG TAB PO SCH (08:45)
[2018-12-17] MEDS: methylPREDNISolone SOD SUCCI 125 MG/2 ML VIAL IV SCH ×2 (08:45→15:41)
[2018-12-17] MEDS: LINAGLIPTIN 5 MG TABLET PO SCH (08:45)
[2018-12-17] MEDS: FUROSEMIDE 10 MG/ML 4 ML VIAL IV SCH ×2 (08:46→20:27)
--- NOTE | 2018-12-17 11:14 | P.PN ---
Subjective Progress Note Date: 12/17/18 This is a 78-year-old gentleman who has known history of hypertension, diabetes, nonsmoker, asthma, presented to the hospital with symptoms of generalized malaise with associated shortness of breath and productive cough. He also states that on Monday when he started to feel awful that he thinks he may have had a temperature. Blood pressure on arrival here 113/63 with a heart rate in the 80s, 89% on room air, temperature was 98. Throughout the night last night, patient did have a temperature up to 100.3. He is afebrile this morning with a blood pressure of 128/68, heart rate 103, respirations 18. Chest x-ray results are pending. Patient did have a CTA of the chest performed she did not reveal any evidence for pulmonary embolism. Multifocal bilateral areas of acute alveolar infiltrates and/or edema most prominent involving the right upper lobe and bilateral lower lobes. EKG on presentation here showed atrial fibrillation with a heart rate of 90, incomplete right bundle branch block pattern, occasional PVC and nonspecific ST-T wave changes. Laboratory data was reviewed, white blood cell count 9.2, hemoglobin 13, platelet count 237. Sodium 136, potassium 4.3, BUN 24, creatinine 0.8. Plasma lactic acid 3.7, down to 1.9. Troponins 0.0-7, 0.028, 0.025. BNP level 1330. At the time of my examination this morning, patient states he still feels quite short of breath, he does state that his sputum which initially appeared yellow in color is clear today. 12/14/2018 Patient was seen and examined this morning, feels significantly weaker today,mildly short of breath.blood pressure 124/70 with a heart rate of 90, 94% on 4 L of oxygen.White blood cell count 12.0, hemoglobin 13.8, platelet count 276.echocardiogram with Doppler study revealed an ejection fraction of 50-55%. Severe pulmonary hypertension. Small pericardial effusion. 12/17/2018 Patient seen and examined this morning, continues to be in atrial fibrillation with a controlled heart rate of 70-90. He is on Eliquis for anticoagulation. Blood pressure 110/68. White blood cell count 13, hemoglobin 12.6, platelet count 388. Sodium 135, potassium 4.0, BUN 37 and creatinine 0.8. Magnesium 2.1. Objective - Vital Signs Vital signs: Vital Signs Temp 97.4 F L 12/17/18 08:40 Pulse 94 12/17/18 08:40 Resp 18 12/17/18 08:40 BP 110/68 12/17/18 08:40 Pulse Ox 91 L 12/17/18 08:40 Intake & Output 12/16/18 12/17/18 12/17/18 18:59 06:59 18:59 Intake Total 1140 Balance 1140 Weight 83.1 kg Intake: IV 60 0.9 10 cefTRIAXone 1 gm In 50 Sodium Chloride 0.9% 50 ml @ 100 mls/hr IVPB Q24HR [facility] Rx#:[id number] Oral 1080 Other: Voiding Method Toilet Toilet Urinal Urinal # Voids 2 - Exam PHYSICAL EXAMINATION: GENERAL: 78-year-old gentleman in no acute distress at the time of my examination HEENT: Head is atraumatic, normocephalic. Pupils equal, round. Sclera anicteric. Conjunctiva are clear. Mucous membranes of the mouth are moist. Neck is supple. There is no elevated jugular venous pressure. No carotid bruit is heard. HEART EXAMINATION: Heart S1 and S2 irregularly irregular CHEST EXAMINATION: Lungs reveal crackles to the right posterior base, mild diminished air entry to bilateral bases ABDOMEN: Soft, nontender. Bowel sounds are heard. No organomegaly noted. EXTREMITIES: 2+ peripheral pulses with trace evidence of peripheral edema and no calf tenderness noted. NEUROLOGIC patient is awake, alert and oriented 3 . - Labs CBC & Chem 7: 12/17/18 06:30 12/17/18 06:30 Labs: Abnormal Lab Results - Last 24 Hours (Table) 12/16/18 12/16/18 12/16/18 Range/Units 11:33 16:29 21:20 WBC (3.8-10.6) k/uL RBC (4.30-5.90) m/uL Hgb (13.0-17.5) gm/dL Hct (39.0-53.0) % Neutrophils # (1.3-7.7) k/uL Lymphocytes # (1.0-4.8) k/uL Sodium (137-145) mmol/L BUN (9-20) mg/dL Glucose (74-99) mg/dL POC Glucose (mg/dL) 283 H 395 H 301 H (75-99) mg/dL 12/17/18 12/17/18 12/17/18 Range/Units 06:18 06:30 06:30 WBC 13.0 H (3.8-10.6) k/uL RBC 4.16 L (4.30-5.90) m/uL Hgb 12.6 L (13.0-17.5) gm/dL Hct 37.4 L (39.0-53.0) % Neutrophils # 11.7 H (1.3-7.7) k/uL Lymphocytes # 0.7 L (1.0-4.8) k/uL Sodium 135 L (137-145) mmol/L BUN 37 H (9-20) mg/dL Glucose 144 H (74-99) mg/dL POC Glucose (mg/dL) 170 H (75-99) mg/dL Microbiology - Last 24 Hours (Table) 12/12/18 15:03 Blood Culture - Preliminary Blood No Growth after 96 hours Assessment and Plan Plan: Assessment and plan #1 symptoms of shortness of breath with associated productive cough and fever, CT of the chest suggests infiltrates bilaterally, clinical picture suggesting a pneumonia. #2 atrial fibrillation with moderately rapid ventricular response, appears to be of new onset for the patient. EKG reviewed from 2017 showed a normal sinus rhythm. #3 hypertension #4 diabetes #5 hyperlipidemia #6 asthma Plan From cardiology's perspective, we'll recommend to continue this patient on his current medications. He may be transferred to medical surgical unit from our standpoint. DNP note has been reviewed, I agree with a documented findings and plan of care. Patient was seen and examined.
[2018-12-17 11:43] LABS: Glucose,Whole Blood 230 mg/dL (75-99)
--- NOTE | 2018-12-17 12:00 | XR ---
EXAMINATION TYPE: XR chest 2V DATE OF EXAM: 12/17/2018 COMPARISON: Prior chest x-ray 12/15/2018 HISTORY: Pneumonia TECHNIQUE: Frontal and lateral views of the chest are obtained. FINDINGS: Findings are similar to prior exam. There may be some improved aeration at the right costo phrenic angle level. IMPRESSION: Findings compatible with patient's history of multi lobar pneumonia.
--- NOTE | 2018-12-17 14:41 | P.PN ---
Subjective Progress Note Date: 12/17/18 Principal diagnosis: Acute hypoxic respiratory failure secondary to bilateral infiltrates with possible pneumonia versus interstitial lung disease In 12/17/2018 patient seen in follow-up on selective care unit. He is awake and alert, in no acute distress, patient did have an episode of desaturation down to 80% on room air this morning, he is currently at 92%, remains on room air, denies any respiratory distress, vital signs are stable, no fever or chills, his labs have been reviewed, white blood cell count is improving down to 13 from 20.5 on yesterday's labs, serum sodium is improved at 135, the rest of the electrolytes were within normal limits, BUN is at 37 creatinine 0.86. Patient is on, initially Zithromax and Rocephin, he remains on IV Lasix at 40 mg every 12 hours, he is diuresing, he is down by 1.1 kg Gnio in the last 24 hours. today's chest x-ray has been reviewed showing stable findings of multilobar pneumonia with possibility of slight improvement in aeration of the right costophrenic angle. Clinically remains stable, no complex of chest pain, no complaints of cough or congestion. He is tolerating ambulation. There is a possibility patient may be able to go home today, and home oxygen arrangements are being put in place for likelihood of patient's discharge with home oxygen Objective - Vital Signs Vital signs: Vital Signs Temp 97 F L 12/17/18 12:00 Pulse 83 12/17/18 12:00 Resp 18 12/17/18 12:00 BP 126/60 12/17/18 12:00 Pulse Ox 92 L 12/17/18 12:00 Intake & Output 12/16/18 12/17/18 12/17/18 18:59 06:59 18:59 Intake Total 1140 50 Balance 1140 50 Weight 83.1 kg Intake: IV 60 0.9 10 cefTRIAXone 1 gm In 50 Sodium Chloride 0.9% 50 ml @ 100 mls/hr IVPB Q24HR [facility] Rx#:[id number] Intake, IV Titration 50 Amount cefTRIAXone 1 gm In 50 Sodium Chloride 0.9% 50 ml @ 100 mls/hr IVPB Q24HR [facility] Rx#:[id number] Oral 1080 Other: Voiding Method Toilet Toilet Urinal Urinal # Voids 2 - Exam GENERAL EXAM: Alert, pleasant, 78-year-old white male comfortable in no apparent distress. HEAD: Normocephalic/atraumatic. EYES: Normal reaction of pupils, equal size. Conjunctiva pink, sclera white. NOSE: Clear with pink turbinates. THROAT: No erythema or exudates. NECK: No masses, no JVD, no thyroid enlargement, no adenopathy. CHEST: No chest wall deformity. Symmetrical expansion. LUNGS: Equal air entry with no crackles, wheeze, rhonchi or dullness. CVS: Regular rate and rhythm, normal S1 and S2, no gallops, no murmurs, no rubs ABDOMEN: Soft, nontender. No hepatosplenomegaly, normal bowel sounds, no guarding or rigidity. EXTREMITIES: No clubbing, no edema, no cyanosis, 2+ pulses and upper and lower extremities. MUSCULOSKELETAL: Muscle strength and tone normal. SPINE: No scoliosis or deformity SKIN: No rashes CENTRAL NERVOUS SYSTEM: Alert and oriented -3. No focal deficits, tone is normal in all 4 extremities. PSYCHIATRIC: Alert and oriented -3. Appropriate affect. Intact judgment and insight. - Labs CBC & Chem 7: 12/17/18 06:30 12/17/18 06:30 Labs: Abnormal Lab Results - Last 24 Hours (Table) 12/16/18 12/16/18 12/17/18 Range/Units 16:29 21:20 06:18 WBC (3.8-10.6) k/uL RBC (4.30-5.90) m/uL Hgb (13.0-17.5) gm/dL Hct (39.0-53.0) % Neutrophils # (1.3-7.7) k/uL Lymphocytes # (1.0-4.8) k/uL Sodium (137-145) mmol/L BUN (9-20) mg/dL Glucose (74-99) mg/dL POC Glucose (mg/dL) 395 H 301 H 170 H (75-99) mg/dL 12/17/18 12/17/18 12/17/18 Range/Units 06:30 06:30 11:42 WBC 13.0 H (3.8-10.6) k/uL RBC 4.16 L (4.30-5.90) m/uL Hgb 12.6 L (13.0-17.5) gm/dL Hct 37.4 L (39.0-53.0) % Neutrophils # 11.7 H (1.3-7.7) k/uL Lymphocytes # 0.7 L (1.0-4.8) k/uL Sodium 135 L (137-145) mmol/L BUN 37 H (9-20) mg/dL Glucose 144 H (74-99) mg/dL POC Glucose (mg/dL) 230 H (75-99) mg/dL Microbiology - Last 24 Hours (Table) 12/12/18 15:03 Blood Culture - Preliminary Blood No Growth after 96 hours Assessment and Plan Plan: Assessment: #1 Acute hypoxic respiratory failure secondary to bilateral infiltrates with multilobar pneumonia versus interstitial lung disease or remotely cancer. The patient's pulmonary infiltrates are rather coarse and granular and I'm a bit concerned of a malignancy process. For that reason I'm going to monitor this pulmonary infiltrates and a follow-up chest x-ray make sure there is complete clearing. If not, a biopsy will be needed. #2 New onset atrial fibrillation with a rapid ventricular response currently on a heparin drip. He transitioned to Eliquis. #3 Acute exacerbation of chronic obstructive pulmonary disease secondary to above. #4 Previous history of chronic tobacco dependence. #5 Hypertension. #6 Hyperlipidemia. #7 Diabetes mellitus. Plan: Chest x-ray shows stable findings of multilobar pneumonia, but clinically patient is in no acute distress, there is a possibility he will need home oxygen upon discharge as he is still experiencing intermittent periods of desaturation on room air, did desaturate to 80% on room air early this morning, and she does qualify for home oxygen. Clinically remains stable, complaints of worsening dyspnea, no cough or congestion, he is in negative fluid balance, he remains on IV Lasix, and antibiotics, possibility of discharge home in next 24 hours if he remains stable and continues to improve, I performed a history & physical examination of the patient and discussed their management with my nurse practitioner, Lilian Christian. I reviewed the nurse practitioner's note and agree with the documented findings and plan of care. Lung sounds are positive for diminished breath sounds. The findings and the impression was discussed with the patient. I attest to the documentation by the nurse practitioner. Time with Patient: Less than 30
[2018-12-17 16:40] LABS: Glucose,Whole Blood 351 mg/dL (75-99)
[2018-12-17 16:42] LABS: Glucose,Whole Blood 303 mg/dL (75-99)
[2018-12-17] MEDS: predniSONE 10 MG TAB PO SCH (17:06)
[2018-12-17 20:04] LABS: Glucose,Whole Blood 381 mg/dL (75-99)
[2018-12-17] MEDS: ATORVASTATIN 20 MG TAB PO SCH (20:26)
[2018-12-17] MEDS: ASPIRIN 81 MG PO SCH (20:26)
[2018-12-17] MEDS: CHOLECALCIFEROL 1,000 UNIT TAB PO SCH (20:26)
[2018-12-17] MEDS: traZODone HCL 50 MG TAB PO SCH (20:27)
[2018-12-17] MEDS: INSULIN DETEMIR (LEVEMIR) 100 UNIT/ML SYR SQ SCH (20:48)
[2018-12-18] MEDS: TEMAZEPAM 15 MG CAP PO PRN (02:20)
[2018-12-18 06:15] LABS: Glucose,Whole Blood 164 mg/dL (75-99)
[2018-12-18] MEDS: INSULIN ASPART (NovoLOG) 100 UNIT/ML VIAL SQ SCH ×4 (06:35→21:47)
[2018-12-18] MEDS: SYMBICORT 160-4.5 MCG INHALER INHALATION SCH ×2 (08:13→20:20)
[2018-12-18] MEDS: amLODIPine 5 MG TAB PO SCH (08:53)
[2018-12-18] MEDS: APIXABAN 5 MG TAB PO SCH (08:53)
[2018-12-18] MEDS: guaiFENesin 600 MG TABLET.ER PO SCH ×2 (08:53→21:47)
[2018-12-18] MEDS: MONTELUKAST 10 MG TAB PO SCH (08:53)
[2018-12-18] MEDS: HYDROCHLOROTHIAZIDE 25 MG TAB PO SCH (08:53)
[2018-12-18] MEDS: predniSONE 10 MG TAB PO SCH (08:53)
[2018-12-18] MEDS: VALSARTAN 160 MG TAB PO SCH (08:53)
[2018-12-18] MEDS: AZITHROMYCIN 500 MG TAB PO SCH (08:54)
[2018-12-18] MEDS: FUROSEMIDE 10 MG/ML 4 ML VIAL IV SCH ×2 (08:54→21:46)
[2018-12-18] MEDS: LINAGLIPTIN 5 MG TABLET PO SCH (08:54)
--- NOTE | 2018-12-18 10:08 | XR ---
EXAMINATION TYPE: XR chest 1V portable DATE OF EXAM: 12/18/2018 COMPARISON: Prior chest x-ray 12/17/2018 HISTORY: Pneumonia TECHNIQUE: Single frontal view of the chest is obtained. FINDINGS: Findings are similar to prior exam. Left hemidiaphragm is obscured due to increased densit y. Airspace disease persists in the right upper lobe. Heart size is stable. No pneumothorax. There ar e overlying cardiac leads. There is some blunting the right costophrenic angle. IMPRESSION: Findings may represent multi lobar pneumonia. Additional follow-up recommended.
[2018-12-18 11:38] LABS: Glucose,Whole Blood 153 mg/dL (75-99)
--- NOTE | 2018-12-18 12:27 | P.PN ---
Subjective Progress Note Date: 12/18/18 This is a 78-year-old gentleman who has known history of hypertension, diabetes, nonsmoker, asthma, presented to the hospital with symptoms of generalized malaise with associated shortness of breath and productive cough. He also states that on Monday when he started to feel awful that he thinks he may have had a temperature. Blood pressure on arrival here 113/63 with a heart rate in the 80s, 89% on room air, temperature was 98. Throughout the night last night, patient did have a temperature up to 100.3. He is afebrile this morning with a blood pressure of 128/68, heart rate 103, respirations 18. Chest x-ray results are pending. Patient did have a CTA of the chest performed she did not reveal any evidence for pulmonary embolism. Multifocal bilateral areas of acute alveolar infiltrates and/or edema most prominent involving the right upper lobe and bilateral lower lobes. EKG on presentation here showed atrial fibrillation with a heart rate of 90, incomplete right bundle branch block pattern, occasional PVC and nonspecific ST-T wave changes. Laboratory data was reviewed, white blood cell count 9.2, hemoglobin 13, platelet count 237. Sodium 136, potassium 4.3, BUN 24, creatinine 0.8. Plasma lactic acid 3.7, down to 1.9. Troponins 0.0-7, 0.028, 0.025. BNP level 1330. At the time of my examination this morning, patient states he still feels quite short of breath, he does state that his sputum which initially appeared yellow in color is clear today. 12/14/2018 Patient was seen and examined this morning, feels significantly weaker today,mildly short of breath.blood pressure 124/70 with a heart rate of 90, 94% on 4 L of oxygen.White blood cell count 12.0, hemoglobin 13.8, platelet count 276.echocardiogram with Doppler study revealed an ejection fraction of 50-55%. Severe pulmonary hypertension. Small pericardial effusion. 12/17/2018 Patient seen and examined this morning, continues to be in atrial fibrillation with a controlled heart rate of 70-90. He is on Eliquis for anticoagulation. Blood pressure 110/68. White blood cell count 13, hemoglobin 12.6, platelet count 388. Sodium 135, potassium 4.0, BUN 37 and creatinine 0.8. Magnesium 2.1. 12/18/2018 Patient was seen and examined this morning, sitting up in the chair at bedside, overall feeling well. Continues to be in atrial fibrillation, heart rate in the 70s to 80s this morning. Blood pressure 128/80. No laboratory data today. Objective - Vital Signs Vital signs: Vital Signs Temp 97.5 F L 12/18/18 12:00 Pulse 73 12/18/18 12:00 Resp 16 12/18/18 12:00 BP 129/82 12/18/18 12:00 Pulse Ox 96 12/18/18 12:00 Intake & Output 12/17/18 12/18/18 12/18/18 18:59 06:59 18:59 Intake Total 530 480 Balance 530 480 Weight 82 kg Intake: Intake, IV Titration 50 Amount cefTRIAXone 1 gm In 50 Sodium Chloride 0.9% 50 ml @ 100 mls/hr IVPB Q24HR [facility] Rx#:[id number] Oral 480 480 Other: Voiding Method Toilet Urinal # Voids 2 1 - Exam PHYSICAL EXAMINATION: GENERAL: 78-year-old gentleman in no acute distress at the time of my examination HEENT: Head is atraumatic, normocephalic. Pupils equal, round. Sclera anicteric. Conjunctiva are clear. Mucous membranes of the mouth are moist. Neck is supple. There is no elevated jugular venous pressure. No carotid bruit is heard. HEART EXAMINATION: Heart S1 and S2 irregularly irregular CHEST EXAMINATION: Lungs reveal crackles to the right posterior base, mild diminished air entry to bilateral bases ABDOMEN: Soft, nontender. Bowel sounds are heard. No organomegaly noted. EXTREMITIES: 2+ peripheral pulses with trace evidence of peripheral edema and no calf tenderness noted. NEUROLOGIC patient is awake, alert and oriented 3 . - Labs CBC & Chem 7: 12/17/18 06:30 12/17/18 06:30 Labs: Abnormal Lab Results - Last 24 Hours (Table) 12/17/18 12/17/18 12/17/18 Range/Units 16:29 16:40 20:03 POC Glucose (mg/dL) 351 H 303 H 381 H (75-99) mg/dL 12/18/18 12/18/18 Range/Units 06:13 11:29 POC Glucose (mg/dL) 164 H 153 H (75-99) mg/dL Microbiology - Last 24 Hours (Table) 12/12/18 15:03 Blood Culture - Preliminary Blood No Growth after 120 hours Assessment and Plan Plan: Assessment and plan #1 symptoms of shortness of breath with associated productive cough and fever, CT of the chest suggests infiltrates bilaterally, clinical picture suggesting a pneumonia. #2 atrial fibrillation with moderately rapid ventricular response, appears to be of new onset for the patient. EKG reviewed from 2017 showed a normal sinus rhythm. #3 hypertension #4 diabetes #5 hyperlipidemia #6 asthma Plan From cardiology's perspective, we'll recommend to continue this patient on his current medications. He may be transferred to medical surgical unit for discharged home from our standpoint. DNP note has been reviewed, I agree with a documented findings and plan of care. Patient was seen and examined.
--- NOTE | 2018-12-18 13:05 | CDI ---
Documentation Clarification Form Date: 12/18/2018 12:52:33 PM From: Ashley Rothman RN CCDS Admit Date: 12/12/2018 5:21:00 PM Patient Name: Kenroy Lovelace Visit Number: [id number] Discharge Date: ATTENTION: The Clinical Documentation Specialists (CDI) and [facility] Coding Staff appreciate your assistance in clarifying documentation. Please respond to the clarification below the line at the bottom and electronically sign. The CDI & [facility] Coding staff will review the response and follow-up if needed. Please note: Queries are made part of the Legal Health Record. If you have any questions, please contact the author of this message via ITS. Dr. Kenroy Denis The diagnosis Sepsis was documented in your H & P and progress note 12/14/2018 but is not noted in subsequent documentation. History/Risk Factors: 78-year-old male presents to the ED with shortness of breath and palpitations. Medical History COPD and History of tobacco dependence Clinical Indicators: 12/12 Wbc 10.4, Neutrophils % 89; Neutrophils # 9.3; Lactic acid 3.7; BNP 1330; 12/12 VSS 113/63 89 98.0 18 89% ra Treatment: [id number] ivpb ; Rocephin ivpb; 2L 0.9ns; Ivfl Bolus; Please clarify if the Sepsis was: * Present/active this admission * Treated and resolved this admission * Ruled out * Other, please specify * Clinically unable to determine (Last Query Form Revision: October 2018) Treated and resolved this admission MTDD
--- NOTE | 2018-12-18 13:06 | P.DS ---
Providers Date of admission: 12/12/18 17:21 Expected date of discharge: 12/17/18 Attending physician: Kenroy Denis MD Consults: 12/12/18 17:23 Consult Physician Routine Consulting Provider: Erik Welsh Consult Reason/Comments: a fib Do you want consulting provider notified?: Yes 12/16/18 07:33 Consult Physician Routine Consulting Provider: Pete Walker Consult Reason/Comments: PNA Do you want consulting provider notified?: Already Contacted Primary care physician: Eleni Yee [facility] Course: Addendum: Given the concern of malignancy, discharge placed on hold as per pulmonary with follow-up chest x-ray in a.m. ordered. Possible bronchoscopy with biopsy also being discussed. Final diagnoses (1) acute hypoxic respiratory failure secondary to multilobar pneumonia, possible interstitial lung disease, possible malignancy, pulmonary following Sepsis due to pneumonia Current Visit: Yes Status: Acute Code(s): J18.9 - PNEUMONIA, UNSPECIFIED ORGANISM; A41.9 - SEPSIS, UNSPECIFIED ORGANISM SNOMED Code(s): 26714940 (2) sepsis secondary to the above (3) Community acquired, multifocal pneumonia Current Visit: Yes Status: Acute Code(s): J18.9 - PNEUMONIA, UNSPECIFIED ORGANISM SNOMED Code(s): 410382670PBQSFM Code(s): 706290438 (4) Hypertension Current Visit: Yes Status: Acute Code(s): I10 - ESSENTIAL (PRIMARY) HYPERTENSION SNOMED Code(s): 44804103 (5) Hyperlipidemia Current Visit: Yes Status: Acute Code(s): E78.5 - HYPERLIPIDEMIA, UNSPECIFIED SNOMED Code(s): 33599038 (6) Elevated lactic acid level Current Visit: Yes Status: Acute Code(s): R79.89 - OTHER SPECIFIED ABNORMAL FINDINGS OF BLOOD CHEMISTRY SNOMED Code(s): 2822689 (7) Atrial fibrillation Current Visit: Yes Status: Acute Code(s): I48.91 - UNSPECIFIED ATRIAL FIBRILLATION SNOMED Code(s): 15068064 (8) severe pulmonary hypertension (9) moderate to severe tricuspid regurgitation (10) acute COPD exacerbation (11) diabetes mellitus Hospital course:Kenroy Lovelace is a 78 yo M with PMH of COPD, history of tobacco dependence, T2DM, HTN, HLD who presented to the ED on the recommendation of 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 He reports cough, malaise and shortness of breath which has lasted approximately 1 week but became worse over the past 2-3 days. He was seen in the pulmonology office and CXR showed multifocal pneumonia so pt was instructed to present to the ED. He endorses fevers and chills at home. On presentation to the ED he was hypoxic and tachycardic, WBC 10.4, lactic 3.7, BNP 1000, trop negative. CTA showed multifocal bilateral pneumonia. Pt was also noted to be in A fib on EKG. Pro calcitonin 2.5. 12/14/2018 Reports fluctuating episodes of nonproductive coughing, lower energy levels-weaker. Echo reported low normal LV function, EF 50-55% with moderate to severe tricuspid regurgitation, severe pulmonary hypertension, small pericardial effusion Showered, tolerated exertion well. Transitioning heparin into Eliquis. VSS, maintaining O2 sats in the 90s on 4 L nasal cannula. Afebrile, WBC 12, preliminary blood cultures no growth at 24 hours. 12/17/18 maintained on Zithromax, Rocephin, nebulized bronchodilators. Diuresing well on Lasix IV push with 24-hour I&O reflecting a decreased weight, down 1.1 kg. Chest x-ray reporting stable possibly improved aeration at the right costophrenic angle level, multilobar pneumonia. Patient remains O2 dependent, 85% on room air after ambulation, 88% on room air at rest. Oxygen has been arranged for discharge as per case management. Telemetry controlled atrial fibrillation. Pulmonary is discussing discharge versus further workup. Potential discharge home later this afternoon pending pulmonary clearance. Exam General: well nourished, well developed, NAD. Vitals reviewed Eyes: PERRL, EOMI, conjunctiva normal HENT: normocephalic, mucus membranes moist. On 2 L O2 Neck: supple, no JVD Lungs: Better air entry, bilateral bases diminished, no rhonchi, no crackles,no expiratory wheezing CV: Irregularly irregular, controlled ventricular rate, no murmur. no edema, Peripheral pulses 2+ Abdomen: soft, nondistended, no organomegaly Lymph: no cervical or axillary LAD Skin: warm and dry. Neuro: A&Ox3, normal mood and affect The impression and plan of care has been dictated as directed. : I performed a history and examination of this patient, discussed the same with the dictator. I agree with the dictator's note ,documented as a scribe. Any additional findings or plans will be noted. Patient Condition at Discharge: Stable Plan - Discharge Summary Discharge Rx Participant: No New Discharge Prescriptions: New predniSONE 10 mg PO DIRECTED #18 tab Amoxic-Pot Clav 875-125Mg [Augmentin 875-125] 1 tab PO Q12HR #10 tablet Apixaban [Eliquis] 5 mg PO BID #60 tab Continue Aspirin [Adult Low Dose Aspirin EC] 81 mg PO HS Montelukast [Singulair] 10 mg PO DAILY Hydrochlorothiazide [Hydrodiuril] 25 mg PO DAILY Budesonide/Formoterol Fumarate [Symbicort 160-4.5 Mcg Inhaler] 2 puff INHALATION RT-BID Linagliptin [Tradjenta] 5 mg PO DAILY Cholecalciferol [Vitamin D3 (25 Mcg = 1000 Iu)] 2,000 unit PO HS Tadalafil 10 - 20 mg PO ONCE PRN PRN Reason: E.D. amLODIPine [Norvasc] 5 mg PO DAILY Atorvastatin [Lipitor] 20 mg PO HS Valsartan 320 mg PO DAILY Discharge Medication List Aspirin [Adult Low Dose Aspirin EC] 81 mg PO HS 07/29/15 [History] Atorvastatin [Lipitor] 20 mg PO HS 12/12/18 [History] Budesonide/Formoterol Fumarate [Symbicort 160-4.5 Mcg Inhaler] 2 puff INHALATION RT-BID 12/12/18 [History] Cholecalciferol [Vitamin D3 (25 Mcg = 1000 Iu)] 2,000 unit PO HS 12/12/18 [History] Hydrochlorothiazide [Hydrodiuril] 25 mg PO DAILY 12/12/18 [History] Linagliptin [Tradjenta] 5 mg PO DAILY 12/12/18 [History] Montelukast [Singulair] 10 mg PO DAILY 12/12/18 [History] Tadalafil 10 - 20 mg PO ONCE PRN 12/12/18 [History] Valsartan 320 mg PO DAILY 12/12/18 [History] amLODIPine [Norvasc] 5 mg PO DAILY 12/12/18 [History] Amoxic-Pot Clav 875-125Mg [Augmentin 875-125] 1 tab PO Q12HR #10 tablet 12/17/18 [Rx] Apixaban [Eliquis] 5 mg PO BID #60 tab 12/17/18 [Rx] predniSONE 10 mg PO DIRECTED #18 tab 12/17/18 [Rx] Follow up Appointment(s)/Referral(s): Erik Welsh MD [STAFF PHYSICIAN] - 12/28/18 10:45 am (Follow-up with Dr. Welsh/Mirian Santo/Sada Barney Appointment with Mirian GREENE) Chang Hodge DO [Doctor of Osteopathic Medicine] - 01/01/19 2:15 pm Eleni Yee DO [Primary Care Provider] - 12/20/18 10:45 am (With Reanna GREENE) Ambulatory/Diagnostic Orders: Complete Blood Count w/diff [LAB.AMB] Time Frame: 3 Days, Location: None Selected Patient Instructions/Handouts: A-fib (Atrial Fibrillation) (DC), Pneumonia (DC), Safe Use of Anticoagulants (DC) Activity/Diet/Wound Care/Special Instructions: diuretics, DC recommendations/clearance as per pulmonary. O2 sat on room air after ambulation 85%, 88% st rest. 2 L nasal O2 at discharge - order sent to [facility] - they will deliver prior to discharge - [phone] Junaid covered with a $30 copay - Rx filled at [facility]
--- NOTE | 2018-12-18 13:23 | P.PN ---
Subjective Progress Note Date: 12/18/18 Kenroy Lovelace is a 78 yo M with PMH of COPD, history of tobacco dependence, T2DM, HTN, HLD who presented to the ED on the recommendation of his development spec after being seen in clinic yesterday. He reports cough, malaise and shortness of breath which has lasted approximately 1 week but became worse over the past 2-3 days. He was seen in the pulmonology office and CXR showed multifocal pneumonia so pt was instructed to present to the ED. He endorses fevers and chills at home. On presentation to the ED he was hypoxic and tachycardic, WBC 10.4, lactic 3.7, BNP 1000, trop negative. CTA showed multifocal bilateral pneumonia. Pt was also noted to be in A fib on EKG. Pro calcitonin 2.5. 12/14/2018 Reports fluctuating episodes of nonproductive coughing, lower energy levels-weaker. Echo reported low normal LV function, EF 50-55% with moderate to severe tricuspid regurgitation, severe pulmonary hypertension, small pericardial effusion Showered, tolerated exertion well. Transitioning heparin into El iquis. VSS, maintaining O2 sats in the 90s on 4 L nasal cannula. Afebrile, WBC 12, preliminary blood cultures no growth at 24 hours. 12/17/2018maintained on Zithromax, Rocephin, nebulized bronchodilators. Diuresing well on Lasix IV push with 24-hour I&O reflecting a decreased weight, down 1.1 kg. Chest x-ray reporting stable possibly improved aeration at the right costophrenic angle level, multilobar pneumonia. Patient remains O2 dependent, 85% on room air after ambulation, 88% on room air at rest. Oxygen has been arranged for discharge as per case management. Telemetry controlled atrial fibrillation. Pulmonary is discussing discharge versus further workup. Given the concern of malignancy, discharge placed on hold as per pulmonary with follow-up chest x-ray in a.m. ordered. Possible bronchoscopy with biopsy also being discussed. 12/18/2018 continues to diurese well on Lasix IV push with weight decreased by another 1.1 kg .chest x-ray this morning worsened, left hemidiaphragm obscured r/t increased density, persistent right upper lobe airspace disease with some blunting of the right costophrenic angle, multilobar pneumonia. Maintaining O2 sats in the mid to high 90s on 2 L nasal cannula. Afebrile. Bronchoscopy scheduled for tomorrow. Denies chest pain, palpitations. Denies lightheadedness, dizziness or focal deficits. Objective - Vital Signs Vital signs: Vital Signs Temp 97.5 F L 12/18/18 12:00 Pulse 73 12/18/18 12:00 Resp 16 12/18/18 12:00 BP 129/82 12/18/18 12:00 Pulse Ox 96 12/18/18 12:00 Intake & Output 12/17/18 12/18/18 12/18/18 18:59 06:59 18:59 Intake Total 530 480 Balance 530 480 Weight 82 kg Intake: Intake, IV Titration 50 Amount cefTRIAXone 1 gm In 50 Sodium Chloride 0.9% 50 ml @ 100 mls/hr IVPB Q24HR [facility] Rx#:[id number] Oral 480 480 Other: Voiding Method Toilet Urinal # Voids 2 1 - Exam General: Sitting up in bed, no acute distress Eyes: PERRL, EOMI, conjunctiva normal HENT: normocephalic, mucus membranes moist. On 2 L O2 Neck: supple, no JVD Lungs:Better air entry, bilateral bases diminished, no rhonchi,no crackles, no w heezing. CV: Irregularly irregular, no murmur. no edema, Peripheral pulses 2+ Abdomen: soft, nondistended, no organomegaly Lymph: no cervical or axillary LAD Skin: warm and dry. Neuro: A&Ox3, normal mood and affect - Labs CBC & Chem 7: 12/17/18 06:30 12/17/18 06:30 Labs: Abnormal Lab Results - Last 24 Hours (Table) 12/17/18 12/17/18 12/17/18 Range/Units 16:29 16:40 20:03 POC Glucose (mg/dL) 351 H 303 H 381 H (75-99) mg/dL 12/18/18 12/18/18 Range/Units 06:13 11:29 POC Glucose (mg/dL) 164 H 153 H (75-99) mg/dL Microbiology - Last 24 Hours (Table) 12/12/18 15:03 Blood Culture - Preliminary Blood No Growth after 120 hours Assessment and Plan Assessment: (1) acute hypoxic respiratory failure secondary to multilobar pneumonia, possible interstitial lung disease, possible malignancy, pulmonary following Sepsis due to pneumonia Current Visit: Yes Status: Acute Code(s): J18.9 - PNEUMONIA, UNSPECIFIED ORGANISM; A41.9 - SEPSIS, UNSPECIFIED ORGANISM SNOMED Code(s): 47850497 (2) sepsis secondary to the above (3) Community acquired, multifocal pneumonia Current Visit: Yes Status: Acute Code(s): J18.9 - PNEUMONIA, UNSPECIFIED ORGANISM SNOMED Code(s): 903139337OOVEJA Code(s): 545160975 (4) Hypertension Current Visit: Yes Status: Acute Code(s): I10 - ESSENTIAL (PRIMARY) HYPERTENSION SNOMED Code(s): 91973554 (5) Hyperlipidemia Current Visit: Yes Status: Acute Code(s): E78.5 - HYPERLIPIDEMIA, UNSPECIFI ED SNOMED Code(s): 92169197 (6) Elevated lactic acid level Current Visit: Yes Status: Acute Code(s): R79.89 - OTHER SPECIFIED ABNORMAL FINDINGS OF BLOOD CHEMISTRY SNOMED Code(s): 9349542 (7) Atrial fibrillation Current Visit: Yes Status: Acute Code(s): I48.91 - UNSPECIFIED ATRIAL FIBRILLATION SNOMED Code(s): 85344053 (8) severe pulmonary hypertension (9) moderate to severe tricuspid regurgitation (10) acute COPD exacerbation (11) diabetes mellitus Plan: Continue on current medication regime ,monitoring and symptomatic treatment. Hold Eliquis, bronchoscopy scheduled for tomorrow with pulmonary. Maintain nebulized bronchodilators, Lasix , oral prednisone, antibiotics .Aggressive pulmonary toileting. The impression and plan of care has been dictated as directed. : I performed a history and examination of this patient, discussed the same with the dictator. I agree with the dictator's note ,documented as a scribe. Any additional findings or plans will be noted.
--- NOTE | 2018-12-18 13:25 | CDI ---
Documentation Clarification Form Date: 12/18/2018 1:06:31 PM From: Ashley Rothman RN CCDS Admit Date: 12/12/2018 5:21:00 PM Patient Name: Kenroy Lovelace Visit Number: [id number] Discharge Date: ATTENTION: The Clinical Documentation Specialists (CDI) and [facility] Coding Staff appreciate your assistance in clarifying documentation. Please respond to the clarification below the line at the bottom and electronically sign. The CDI & [facility] Coding staff will review the response and follow-up if needed. Please note: Queries are made part of the Legal Health Record. If you have any questions, please contact the author of this message via ITS. Dr. Kenroy Denis Documentation in the H & P 12/13/2018 states Elevated lactic acid level History/Risk Factors: 78-year-old male presents to the ED at the advice of the Gluer Machine Operator for multifactorial pneumonia. The patient had cough, shortness of breath and malaise for one week. Medical History COPD with tobacco dependence. Clinical indicators: Abnormal 12/12/18 Plasma Lactic Acid Shamar 3.7 12/12/18 1.9 Treatment: 0.9ns 2L ivfl bolus Clinical significance of diagnostic testing and treatment CANNOT be assumed or coded without physician documentation of significance if any. Please clarify what abnormal laboratory signifies: * Lactic acidosis * Abnormal Lab Value * Unable to determine * Other, please specify (Last Revision: November 2016) Lactic acidosis MTDD
[2018-12-18 13:34] VITALS: BMI 24.5
--- NOTE | 2018-12-18 14:07 | P.PN ---
Subjective Progress Note Date: 12/18/18 Principal diagnosis: Acute hypoxic respiratory failure secondary to bilateral infiltrates with possible pneumonia versus interstitial lung disease In 12/17/2018 patient seen in follow-up on selective care unit. He is awake and alert, in no acute distress, patient did have an episode of desaturation down to 80% on room air this morning, he is currently at 92%, remains on room air, denies any respiratory distress, vital signs are stable, no fever or chills, his labs have been reviewed, white blood cell count is improving down to 13 from 20.5 on yesterday's labs, serum sodium is improved at 135, the rest of the electrolytes were within normal limits, BUN is at 37 creatinine 0.86. Patient is on, initially Zithromax and Rocephin, he remains on IV Lasix at 40 mg every 12 hours, he is diuresing, he is down by 1.1 kg Gino in the last 24 hours. today's chest x-ray has been reviewed showing stable findings of multilobar pneumonia with possibility of slight improvement in aeration of the right costophrenic angle. Clinically remains stable, no complex of chest pain, no complaints of cough or congestion. He is tolerating ambulation. There is a possibility patient may be able to go home today, and home oxygen arrangements are being put in place for likelihood of patient's discharge with home oxygen On 12/18/2018 patient seen in follow-up on selective care unit, clinically patient denies any acute complaints, no shortness of breath, no chest pain, no significant cough or congestion, however follow-up chest x-ray today shows increased density in the right upper lobe airspace disease, and left hemidiaphragm is obscured related to increased density and there is some blunting of the right costophrenic angle, although clinically patient is asymptomatic his radiologic findings are concerning, and for that reason we will hold the patient's discharge and put the patient on a schedule for tomorrow for bronchoscopy and BAL. Objective - Vital Signs Vital signs: Vital Signs Temp 97.5 F L 12/18/18 12:00 Pulse 73 12/18/18 12:00 Resp 16 12/18/18 12:00 BP 129/82 12/18/18 12:00 Pulse Ox 96 12/18/18 12:00 Intake & Output 12/17/18 12/18/1819 18:59 06:59 18:59 Intake Total 530 480 Balance 530 480 Weight 82 kg 82 kg Intake: Intake, IV Titration 50 Amount cefTRIAXone 1 gm In 50 Sodium Chloride 0.9% 50 ml @ 100 mls/hr IVPB Q24HR [facility] Rx#:[id number] Oral 480 480 Other: Voiding Method Toilet Urinal # Voids 2 1 - Exam GENERAL EXAM: Alert, pleasant, 78-year-old white male comfortable in no apparent distress. HEAD: Normocephalic/atraumatic. EYES: Normal reaction of pupils, equal size. Conjunctiva pink, sclera white. NOSE: Clear with pink turbinates. THROAT: No erythema or exudates. NECK: No masses, no JVD, no thyroid enlargement, no adenopathy. CHEST: No chest wall deformity. Symmetrical expansion. LUNGS: Equal air entry with no crackles, wheeze, rhonchi or dullness. CVS: Regular rate and rhythm, normal S1 and S2, no gallops, no murmurs, no rubs ABDOMEN: Soft, nontender. No hepatosplenomegaly, normal bowel sounds, no guarding or rigidity. EXTREMITIES: No clubbing, no edema, no cyanosis, 2+ pulses and upper and lower extremities. MUSCULOSKELETAL: Muscle strength and tone normal. SPINE: No scoliosis or deformity SKIN: No rashes CENTRAL NERVOUS SYSTEM: Alert and oriented -3. No focal deficits, tone is normal in all 4 extremities. PSYCHIATRIC: Alert and oriented -3. Appropriate affect. Intact judgment and insight. - Labs CBC & Chem 7: 12/17/18 06:30 12/17/18 06:30 Labs: Abnormal Lab Results - Last 24 Hours (Table) 12/17/18 12/17/18 12/17/18 Range/Units 16:29 16:40 20:03 POC Glucose (mg/dL) 351 H 303 H 381 H (75-99) mg/dL 12/18/18 12/18/18 Range/Units 06:13 11:29 POC Glucose (mg/dL) 164 H 153 H (75-99) mg/dL Microbiology - Last 24 Hours (Table) 12/12/18 15:03 Blood Culture - Preliminary Blood No Growth after 120 hours Assessment and Plan Plan: Assessment: #1 Acute hypoxic respiratory failure secondary to bilateral infiltrates with multilobar pneumonia versus interstitial lung disease or remotely cancer. The patient's pulmonary infiltrates are rather coarse and granular and I'm a bit concerned of a malignancy process. For that reason I'm going to monitor this pulmonary infiltrates and a follow-up chest x-ray make sure there is complete clearing. If not, a biopsy will be needed. #2 New onset atrial fibrillation with a rapid ventricular response currently on a heparin drip. He transitioned to Eliquis. #3 Acute exacerbation of chronic obstructive pulmonary disease secondary to above. #4 Previous history of chronic tobacco dependence. #5 Hypertension. #6 Hyperlipidemia. #7 Diabetes mellitus. Plan: Continue with current medical treatment, chest x-ray from this morning has been reviewed, and there is increased density involving the right upper lobe based disease and increased density at the left hemidiaphragm, and although patient is clinically asymptomatic his chest x-ray appears to be worse today, we'll make the patient nothing by mouth after midnight, and put the patient on the [place] scheduled for tomorrow. Annamarie [place], continue breathing treatments, continue current antibiotics. I performed a history & physical examination of the patient and discussed their management with my nurse practitioner, Lilian Christian. I reviewed the nurse practitioner's note and agree with the documented findings and plan of care. Lung sounds are positive for diminished breath sounds. The findings and the impression was discussed with the patient. I attest to the documentation by the nurse practitioner. Time with Patient: Less than 30
[2018-12-18 16:44] LABS: Glucose,Whole Blood 281 mg/dL (75-99)
[2018-12-18 20:40] LABS: Glucose,Whole Blood 284 mg/dL (75-99)
[2018-12-18] MEDS: ASPIRIN 81 MG PO SCH (21:43)
[2018-12-18] MEDS: ATORVASTATIN 20 MG TAB PO SCH (21:43)
[2018-12-18] MEDS: CHOLECALCIFEROL 1,000 UNIT TAB PO SCH (21:46)
[2018-12-18] MEDS: INSULIN DETEMIR (LEVEMIR) 100 UNIT/ML SYR SQ SCH (21:50)
[2018-12-18] MEDS: traZODone HCL 50 MG TAB PO SCH (21:51)
[2018-12-19] MEDS: INSULIN ASPART (NovoLOG) 100 UNIT/ML VIAL SQ SCH ×4 (06:30→21:28)
[2018-12-19 06:31] LABS: Glucose,Whole Blood 92 mg/dL (75-99)
[2018-12-19 07:59] LABS: Calcium 10.3 mg/dL (8.4-10.2); Potassium 3.6 mmol/L (3.5-5.1)
[2018-12-19 08:02] LABS: Basophils # (A) 0.1 k/uL (0-0.2); Basophils % (A) 0 %; Eosinophils # (A) 0.1 k/uL (0-0.7); Eosinophils % (A) 1 %; HCT 42.7 % (39.0-53.0); HGB 13.9 gm/dL (13.0-17.5); Lymphocytes # (A) 1.8 k/uL (1.0-4.8); Lymphocytes % (A) 11 %; MCH 29.5 pg (25.0-35.0); MCHC 32.5 g/dL (31.0-37.0); MCV 90.8 fL (80.0-100.0); Monocytes # (A) 0.5 k/uL (0-1.0); Monocytes % (A) 3 %; Neutrophils # (A) 13.2 k/uL (1.3-7.7); Neutrophils % (A) 84 %; Platelet Count 521 k/uL (150-450); RDW 13.7 % (11.5-15.5); WBC 15.9 k/uL (3.8-10.6)
[2018-12-19] MEDS: FUROSEMIDE 10 MG/ML 4 ML VIAL IV SCH ×2 (09:11→21:07)
[2018-12-19] MEDS: predniSONE 10 MG TAB PO SCH (09:11)
[2018-12-19] MEDS: VALSARTAN 160 MG TAB PO SCH (09:11)
[2018-12-19] MEDS: MONTELUKAST 10 MG TAB PO SCH (09:12)
[2018-12-19] MEDS: guaiFENesin 600 MG TABLET.ER PO SCH ×2 (09:12→21:07)
[2018-12-19] MEDS: amLODIPine 5 MG TAB PO SCH (09:12)
[2018-12-19] MEDS: HYDROCHLOROTHIAZIDE 25 MG TAB PO SCH (09:12)
[2018-12-19] MEDS: AZITHROMYCIN 500 MG TAB PO SCH (09:12)
[2018-12-19] MEDS: SYMBICORT 160-4.5 MCG INHALER INHALATION SCH ×2 (09:51→19:58)
[2018-12-19 11:55] LABS: Glucose,Whole Blood 80 mg/dL (75-99)
--- NOTE | 2018-12-19 12:14 | P.PN ---
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 He reports cough, malaise and shortness of breath which has lasted approximately 1 week but became worse over the past 2-3 days. He was seen in the pulmonology office and CXR showed multifocal pneumonia so pt was instructed to present to the ED. He endorses fevers and chills at home. On presentation to the ED he was hypoxic and tachycardic, WBC 10.4, lactic 3.7, BNP 1000, trop negative. CTA showed multifocal bilateral pneumonia. Pt was also noted to be in A fib on EKG. Pro calcitonin 2.5. 12/14/2018 Reports fluctuating episodes of nonproductive coughing, lower energy levels-weaker. Echo reported low normal LV function, EF 50-55% with moderate to severe tricuspid regurgitation, severe pulmonary hypertension, small pericardial effusion Showered, tolerated exertion well. Transitioning heparin into [place] iquis. VSS, maintaining O2 sats in the 90s on 4 L nasal cannula. Afebrile, WBC 12, preliminary blood cultures no growth at 24 hours. 12/17/2018maintained on Zithromax, Rocephin, nebulized bronchodilators. Diuresing well on Lasix IV push with 24-hour I&O reflecting a decreased weight, down 1.1 kg. Chest x-ray reporting stable possibly improved aeration at the right costophrenic angle level, multilobar pneumonia. Patient remains O2 dependent, 85% on room air after ambulation, 88% on room air at rest. Oxygen has been arranged for discharge as per case management. Telemetry controlled atrial fibrillation. Pulmonary is discussing discharge versus further workup. Given the concern of malignancy, discharge placed on hold as per pulmonary with follow-up chest x-ray in a.m. ordered. Possible bronchoscopy with biopsy also being discussed. 12/18/2018 continues to diurese well on Lasix IV push with weight decreased by another 1.1 kg .chest x-ray this morning worsened, left hemidiaphragm obscured r/t increased density, persistent right upper lobe airspace disease with some blunting of the right costophrenic angle, multilobar pneumonia. Maintaining O2 sats in the mid to high 90s on 2 L nasal cannula. Afebrile. Bronchoscopy scheduled for tomorrow. Denies chest pain, palpitations. Denies lightheadedness, dizziness or focal deficits. 12/19/2018 NPO, Junaid on hold, scheduled for bronchoscopy today. Continues to maintain O2 sats in the 90s on 2 L nasal cannula. VSS. Denies chest pain, palpitations or increasing shortness of breath. Diuresing well on Lasix IV push, weight continues to decrease ,down to 80.1 kg. creatinine slowly trending up, 0.95. Objective - Vital Signs Vital signs: Vital Signs Temp 96.9 F L 12/19/18 11:27 Pulse 75 12/19/18 11:27 Resp 20 12/19/18 11:27 BP 94/58 12/19/18 11:27 Pulse Ox 93 L 12/19/18 11:27 Intake & Output 12/18/18 12/19/18 12/19/18 18:59 06:59 18:59 Intake Total 960 0 Output Total 350 Balance 960 -350 Weight 82 kg 80.1 kg Intake: Oral 960 0 Output: Urine 350 Other: Voiding Method Toilet Urinal # Voids 1 1 - Exam General: Sitting up in bed, no acute distress Eyes: PERRL, EOMI, conjunctiva normal HENT: normocephalic, On 2 L O2 Neck: supple, no JVD Lungs:Better air entry, bilateral bases diminished, no rhonchi,no crackles, no wheezing. CV: Irregularly irregular, no murmur. no edema, Peripheral pulses 2+ Abdomen: soft, nondistended, no organomegaly Lymph: no cervical or axillary LAD Skin: warm and dry. Neuro: A&Ox3, normal mood and affect - Labs CBC & Chem 7: 12/19/18 07:09 12/19/18 07:09 Labs: Abnormal Lab Results - Last 24 Hours (Table) 12/18/18 12/18/18 12/19/18 Range/Units 16:38 20:39 07:09 WBC 15.9 H (3.8-10.6) k/uL Plt Count 521 H (150-450) k/uL Neutrophils # 13.2 H (1.3-7.7) k/uL Carbon Dioxide (22-30) mmol/L BUN (9-20) mg/dL POC Glucose (mg/dL) 281 H 284 H (75-99) mg/dL Calcium (8.4-10.2) mg/dL 12/19/18 Range/Units 07:09 WBC (3.8-10.6) k/uL Plt Count (150-450) k/uL Neutrophils # (1.3-7.7) k/uL Carbon Dioxide 33 H (22-30) mmol/L BUN 38 H (9-20) mg/dL POC Glucose (mg/dL) (75-99) mg/dL Calcium 10.3 H (8.4-10.2) mg/dL Microbiology - Last 24 Hours (Table) 12/12/18 15:03 Blood Culture - Final Blood No Growth after 144 hours Assessment and Plan Assessment: (1) acute hypoxic respiratory failure secondary to multilobar pneumonia, possible interstitial lung disease, possible malignancy Current Visit: Yes Status: Acute Code(s): J18.9 - PNEUMONIA, UNSPECIFIED ORGANISM; A41.9 - SEPSIS, UNSPECIFIED ORGANISM SNOMED Code(s): 32009600 (2) sepsis secondary to the above (3) Community acquired, multifocal pneumonia Current Visit: Yes Status: Acute Code(s): J18.9 - PNEUMONIA, UNSPECIFIED ORGANISM SNOMED Code(s): 783991822UVZORL Code(s): 146626022 (4) Hypertension Current Visit: Yes Status: Acute Code(s): I10 - ESSENTIAL (PRIMARY) HYPERTENSION SNOMED Code(s): 92583828 (5) Hyperlipidemia Current Visit: Yes Status: Acute Code(s): E78.5 - HYPERLIPIDEMIA, UNSPE CIFIED SNOMED Code(s): 73885793 (6) Elevated lactic acid level Current Visit: Yes Status: Acute Code(s): R79.89 - OTHER SPECIFIED ABNORMAL FINDINGS OF BLOOD CHEMISTRY SNOMED Code(s): 2763179 (7) Atrial fibrillation Current Visit: Yes Status: Acute Code(s): I48.91 - UNSPECIFIED ATRIAL FIBRILLATION SNOMED Code(s): 48637473 (8) severe pulmonary hypertension (9) moderate to severe tricuspid regurgitation (10) acute COPD exacerbation (11) diabetes mellitus Plan: Continue on current medication regime ,monitoring and symptomatic treatment. Bronchoscopy scheduled for today with pulmonary. Maintain nebulized bronchodilators, Lasix , oral prednisone, antibiotics. Follow closely with pulmonary. The impression and plan of care has been dictated as directed. : I performed a history and examination of this patient, discussed the same with the dictator. I agree with the dictator's note ,documented as a scribe. Any additional findings or plans will be noted.
[2018-12-19] MEDS ORDERED: LIDOCAINE 2% INJ 20 MG/ML INTRATRACH ONE (12:19)
--- NOTE | 2018-12-19 12:25 | P.PN ---
Subjective Progress Note Date: 12/19/18 Principal diagnosis: Acute hypoxic respiratory failure secondary to bilateral infiltrates with possible pneumonia versus interstitial lung disease In 12/17/2018 patient seen in follow-up on selective care unit. He is awake and alert, in no acute distress, patient did have an episode of desaturation down to 80% on room air this morning, he is currently at 92%, remains on room air, denies any respiratory distress, vital signs are stable, no fever or chills, his labs have been reviewed, white blood cell count is improving down to 13 from 20.5 on yesterday's labs, serum sodium is improved at 135, the rest of the electrolytes were within normal limits, BUN is at 37 creatinine 0.86. Patient is on, initially Zithromax and Rocephin, he remains on IV Lasix at 40 mg every 12 hours, he is diuresing, he is down by 1.1 kg Gino in the last 24 hours. today's chest x-ray has been reviewed showing stable findings of multilobar pneumonia with possibility of slight improvement in aeration of the right costophrenic angle. Clinically remains stable, no complex of chest pain, no complaints of cough or congestion. He is tolerating ambulation. There is a possibility patient may be able to go home today, and home oxygen arrangements are being put in place for likelihood of patient's discharge with home oxygen On 12/18/2018 patient seen in follow-up on selective care unit, clinically patient denies any acute complaints, no shortness of breath, no chest pain, no significant cough or congestion, however follow-up chest x-ray today shows increased density in the right upper lobe airspace disease, and left hemidiaphragm is obscured related to increased density and there is some blunting of the right costophrenic angle, although clinically patient is asymptomatic his radiologic findings are concerning, and for that reason we will hold the patient's discharge and put the patient on a schedule for tomorrow for bronchoscopy and BAL. On 12/19/2018 patient seen in follow-up on selective care unit, he sitting up in the recliner, he is currently on 2 L of oxygen with a pulse ox of 93-94%, afebrile, he is without specific complaints, no significant cough or congestion or chest pain, however lung sounds are very diminished bilaterally. Patient is undergoing bronchoscopy with BAL today by Dr. Ramirez in view of worsening chest x-ray findings on yesterday's chest x-ray, and has been unable to give us a sputum sample, and he is currently being treated with a combination of Zithromax and Rocephin. He has been afebrile overnight Objective - Vital Signs Vital signs: Vital Signs Temp 96.9 F L 12/19/18 11:27 Pulse 75 12/19/18 11:27 Resp 20 12/19/18 11:27 BP 94/58 12/19/18 11:27 Pulse Ox 93 L 12/19/18 11:27 Intake & Output 12/18/18 12/19/18 12/19/18 18:59 06:59 18:59 Intake Total 960 0 Output Total 350 Balance 960 -350 Weight 82 kg 80.1 kg Intake: Oral 960 0 Output: Urine 350 Other: Voiding Method Toilet Urinal # Voids 1 1 - Exam GENERAL EXAM: Alert, pleasant, 78-year-old white male comfortable in no apparent distress. HEAD: Normocephalic/atraumatic. EYES: Normal reaction of pupils, equal size. Conjunctiva pink, sclera white. NOSE: Clear with pink turbinates. THROAT: No erythema or exudates. NECK: No masses, no JVD, no thyroid enlargement, no adenopathy. CHEST: No chest wall deformity. Symmetrical expansion. LUNGS: Equal air entry with no crackles, wheeze, rhonchi or dullness. CVS: Regular rate and rhythm, normal S1 and S2, no gallops, no murmurs, no rubs ABDOMEN: Soft, nontender. No hepatosplenomegaly, normal bowel sounds, no guarding or rigidity. EXTREMITIES: No clubbing, no edema, no cyanosis, 2+ pulses and upper and lower extremities. MUSCULOSKELETAL: Muscle strength and tone normal. SPINE: No scoliosis or deformity SKIN: No rashes CENTRAL NERVOUS SYSTEM: Alert and oriented -3. No focal deficits, tone is normal in all 4 extremities. PSYCHIATRIC: Alert and oriented -3. Appropriate affect. Intact judgment and insight. - Labs CBC & Chem 7: 12/19/18 07:09 12/19/18 07:09 Labs: Abnormal Lab Results - Last 24 Hours (Table) 10/22/19 10/22/19 10/23/19 Range/Units 16:38 20:39 07:09 WBC 15.9 H (3.8-10.6) k/uL Plt Count 521 H (150-450) k/uL Neutrophils # 13.2 H (1.3-7.7) k/uL Carbon Dioxide (22-30) mmol/L BUN (9-20) mg/dL POC Glucose (mg/dL) 281 H 284 H (75-99) mg/dL Calcium (8.4-10.2) mg/dL 12/19/18 Range/Units 07:09 WBC (3.8-10.6) k/uL Plt Count (150-450) k/uL Neutrophils # (1.3-7.7) k/uL Carbon Dioxide 33 H (22-30) mmol/L BUN 38 H (9-20) mg/dL POC Glucose (mg/dL) (75-99) mg/dL Calcium 10.3 H (8.4-10.2) mg/dL Microbiology - Last 24 Hours (Table) 12/12/18 15:03 Blood Culture - Final Blood No Growth after 144 hours Assessment and Plan Plan: Assessment: #1 Acute hypoxic respiratory failure secondary to bilateral infiltrates with multilobar pneumonia versus interstitial lung disease or remotely cancer. The patient's pulmonary infiltrates are rather coarse and granular and I'm a bit concerned of a malignancy process. For that reason I'm going to monitor this pulmonary infiltrates and a follow-up chest x-ray make sure there is complete clearing. If not, a biopsy will be needed. #2 New onset atrial fibrillation with a rapid ventricular response currently on a heparin drip. He transitioned to Eliquis. #3 Acute exacerbation of chronic obstructive pulmonary disease secondary to above. #4 Previous history of chronic tobacco dependence. #5 Hypertension. #6 Hyperlipidemia. #7 Diabetes mellitus. Plan: We'll proceed with bronchoscopy with BAL today, in the meantime continue with current medical treatment, current antibiotics, will await the results of the bronchial lavage cultures, clinical patient is asymptomatic, will obtain a follow-up chest x-ray in the next 24 hours. I performed a history & physical examination of the patient and discussed their management with my nurse practitioner, Lilian Christian. I reviewed the nurse practitioner's note and agree with the documented findings and plan of care. Lung sounds are positive for diminished breath sounds. The findings and the impression was discussed with the patient. I attest to the documentation by the nurse practitioner. Time with Patient: Less than 30
[2018-12-19] MEDS ORDERED: PROPOFOL 10 MG/ML 20 ML VIAL IV ONE (12:41)
[2018-12-19] MEDS ORDERED: LIDOCAINE 1% INJ 10MG/ML (20 ML MDV) ONE (12:41)
[2018-12-19] MEDS ORDERED: GLYCOPYRROLATE 0.2 MG/ML 2 ML VIAL ONE (12:41)
[2018-12-19] MEDS ORDERED: fentaNYL (PF) 50 MCG/ML 2 ML AMP ONE (12:41)
[2018-12-19] MEDS ORDERED: MIDAZOLAM 2 MG/2 ML VIAL ONE (12:41)
[2018-12-19] MEDS ORDERED: KETAMINE 10 MG/ML 20 ML VIAL ONE (12:41)
[2018-12-19] MEDS ORDERED: IV FLUID CONTINUATION 1,000 ML IV ONE (12:42)
--- NOTE | 2018-12-19 13:12 | PCN ---
PROCEDURE NOTE OPERATIVE REPORT: Bronchoscopy and bronchoalveolar lavage of the right upper lobe and left lower lobe. PREOPERATIVE DIAGNOSIS: Right upper lobe pneumonia and left lower lobe pneumonia. POSTOPERATIVE DIAGNOSIS: Right upper lobe pneumonia and left lower lobe pneumonia. ANESTHESIA USED: IV conscious sedation. PROCEDURE: The patient was prepared according to the bronchoscopy protocol. The patient was placed in the supine position, O2 was applied via nasal cannula, and a bite block was applied. We monitored his O2 saturation continuously, blood pressure was intermittently monitored, and cardiac rhythm was continuously monitored. After adequate IV conscious sedation, the bronchoscope was advanced through the bite block down to the area of the vocal cords, which were noted to be patent. Lidocaine was applied over the vocal cords, and the bronchoscope was advanced further down to the trachea. Thorough examination was done of the trachea, andrew, right upper lobe, right middle lobe, right lower lobe, left upper lobe lingula and left lower lobe. There was minimal purulent secretions in the right upper lobe, also minimal purulent secretions in the left lower lobe, lavage of the right upper lobe, as well as lavage of the left lower lobe was performed. The procedure was well tolerated, no evidence of any immediate complications. The fluid obtained from the right upper lobe and left lower lobe was sent for different diagnostic studies. MMODL / IJN: [id number] /
[2018-12-19 15:51] LABS: Appearance,BF Cloudy; Color,BF Colorless
[2018-12-19 16:40] LABS: Nucleated Cells, Body Fluid 80 /uL; RBC, Body Fluid 1960 /uL
[2018-12-19 16:43] LABS: Mononuclear WBC,Body Fluid 11 %; Polynuclear WBC,Body Fluid 89 %; Total Cells Counted,Body Fluid 100
[2018-12-19 16:55] LABS: Glucose,Whole Blood 298 mg/dL (75-99)
[2018-12-19] MEDS: LINAGLIPTIN 5 MG TABLET PO SCH (17:15)
[2018-12-19] MEDS: ATORVASTATIN 20 MG TAB PO SCH (21:06)
[2018-12-19] MEDS: CHOLECALCIFEROL 1,000 UNIT TAB PO SCH (21:06)
[2018-12-19] MEDS: ASPIRIN 81 MG PO SCH (21:06)
[2018-12-19] MEDS: traZODone HCL 50 MG TAB PO SCH (21:07)
[2018-12-19 21:19] LABS: Glucose,Whole Blood 223 mg/dL (75-99)
[2018-12-19] MEDS: INSULIN DETEMIR (LEVEMIR) 100 UNIT/ML SYR SQ SCH (21:29)
[2018-12-20 06:08] LABS: Glucose,Whole Blood 60 mg/dL (75-99)
[2018-12-20 06:28] LABS: Glucose,Whole Blood 66 mg/dL (75-99)
[2018-12-20 06:40] LABS: Glucose,Whole Blood 71 mg/dL (75-99)
[2018-12-20] MEDS: SYMBICORT 160-4.5 MCG INHALER INHALATION SCH (08:12)
--- NOTE | 2018-12-20 08:34 | XR ---
EXAMINATION TYPE: XR chest 2V DATE OF EXAM: 12/20/2018 COMPARISON: Prior chest x-ray 12/18/2018 HISTORY: Multi lobar pneumonia TECHNIQUE: Frontal and lateral views of the chest are obtained. FINDINGS: No significant interval change in the findings. IMPRESSION: Findings compatible with patient's history.
[2018-12-20] MEDS ORDERED: APIXABAN 5 MG TAB PO SCH (09:00)
[2018-12-20] MEDS: VALSARTAN 160 MG TAB PO SCH (09:25)
[2018-12-20] MEDS: predniSONE 10 MG TAB PO SCH (09:25)
[2018-12-20] MEDS: FUROSEMIDE 10 MG/ML 4 ML VIAL IV SCH (09:25)
[2018-12-20] MEDS: guaiFENesin 600 MG TABLET.ER PO SCH (09:25)
[2018-12-20] MEDS: AZITHROMYCIN 500 MG TAB PO SCH (09:25)
[2018-12-20] MEDS: LINAGLIPTIN 5 MG TABLET PO SCH (09:25)
[2018-12-20] MEDS: amLODIPine 5 MG TAB PO SCH (09:25)
[2018-12-20] MEDS: HYDROCHLOROTHIAZIDE 25 MG TAB PO SCH (09:25)
[2018-12-20] MEDS: MONTELUKAST 10 MG TAB PO SCH (09:25)
[2018-12-20] MEDS: INSULIN ASPART (NovoLOG) 100 UNIT/ML VIAL SQ SCH ×2 (11:24→12:44)
[2018-12-20 11:50] LABS: Glucose,Whole Blood 161 mg/dL (75-99)
--- NOTE | 2018-12-20 12:06 | P.PN ---
Subjective Progress Note Date: 12/20/18 Principal diagnosis: Acute hypoxic respiratory failure secondary to bilateral infiltrates with possible pneumonia versus interstitial lung disease In 12/17/2018 patient seen in follow-up on selective care unit. He is awake and alert, in no acute distress, patient did have an episode of desaturation down to 80% on room air this morning, he is currently at 92%, remains on room air, denies any respiratory distress, vital signs are stable, no fever or chills, his labs have been reviewed, white blood cell count is improving down to 13 from 20.5 on yesterday's labs, serum sodium is improved at 135, the rest of the electrolytes were within normal limits, BUN is at 37 creatinine 0.86. Patient is on, initially Zithromax and Rocephin, he remains on IV Lasix at 40 mg every 12 hours, he is diuresing, he is down by 1.1 kg Gino in the last 24 hours. today's chest x-ray has been reviewed showing stable findings of multilobar pneumonia with possibility of slight improvement in aeration of the right costophrenic angle. Clinically remains stable, no complex of chest pain, no complaints of cough or congestion. He is tolerating ambulation. There is a possibility patient may be able to go home today, and home oxygen arrangements are being put in place for likelihood of patient's discharge with home oxygen On 12/18/2018 patient seen in follow-up on selective care unit, clinically patient denies any acute complaints, no shortness of breath, no chest pain, no significant cough or congestion, however follow-up chest x-ray today shows increased density in the right upper lobe airspace disease, and left hemidiaphragm is obscured related to increased density and there is some blunting of the right costophrenic angle, although clinically patient is asymptomatic his radiologic findings are concerning, and for that reason we will hold the patient's discharge and put the patient on a schedule for tomorrow for bronchoscopy and BAL. On 12/19/2018 patient seen in follow-up on selective care unit, he sitting up in the recliner, he is currently on 2 L of oxygen with a pulse ox of 93-94%, afebrile, he is without specific complaints, no significant cough or congestion or chest pain, however lung sounds are very diminished bilaterally. Patient is undergoing bronchoscopy with BAL today by Dr. Ramirez in view of worsening chest x-ray findings on yesterday's chest x-ray, and has been unable to give us a sputum sample, and he is currently being treated with a combination of Zithromax and Rocephin. He has been afebrile overnight On 12/20/2018 patient seen in follow-up on selective care unit, patient underwent a bronchoscopy with BAL yesterday, tolerated procedure quite well, please see the procedure note and Dr. Ramirez. Rhonchi Skippy lavage cultures are pending, no growth so far, blood culture has shown no growth. No fever or chills, no significant cough or congestion, no complex of chest pain, no chest wall tenderness or pleurisy. He remains on supplemental oxygen, currently on 2 L, his pulse ox is 94%, no fever or chills, hemodynamically stable, he is being treated with a combination of Zithromax and Rocephin, he remains on oral prednisone, and nebulized bronchodilators. Follow-up chest x-ray today shows some improvement in the appearance of the right upper lobe consolidation and left lower lobe consolidation. Patient's Eliquis has been resumed. No other acute issues overnight. Anticipate discharge home today Objective - Vital Signs Vital signs: Vital Signs Temp 97.8 F 12/20/18 08:13 Pulse 71 12/20/18 08:13 Resp 17 12/20/18 08:13 BP 113/59 12/20/18 08:13 Pulse Ox 94 L 12/20/18 08:13 Intake & Output 12/19/18 12/20/18 12/20/18 18:59 06:59 18:59 Intake Total 780 480 Output Total 1000 300 300 Balance -220 -300 180 Weight 79.4 kg Intake: IV 300 cefTRIAXone 1 gm In 100 Sodium Chloride 0.9% 50 ml @ 100 mls/hr IVPB Q24HR [facility] Rx#:[id number] Intake, IV Titration 120 Amount IV Fluid Continuation 1, 120 000 ml @ 0 mls/hr IV .STK -[facility] ONE Rx#:[id number] Oral 360 480 Output: Urine 1000 300 300 Other: Voiding Method Urinal Urinal - Exam GENERAL EXAM: Alert, pleasant, 78-year-old white male comfortable in no apparent distress. HEAD: Normocephalic/atraumatic. EYES: Normal reaction of pupils, equal size. Conjunctiva pink, sclera white. NOSE: Clear with pink turbinates. THROAT: No erythema or exudates. NECK: No masses, no JVD, no thyroid enlargement, no adenopathy. CHEST: No chest wall deformity. Symmetrical expansion. LUNGS: Equal air entry with no crackles, wheeze, rhonchi or dullness. CVS: Regular rate and rhythm, normal S1 and S2, no gallops, no murmurs, no rubs ABDOMEN: Soft, nontender. No hepatosplenomegaly, normal bowel sounds, no guarding or rigidity. EXTREMITIES: No clubbing, no edema, no cyanosis, 2+ pulses and upper and lower extremities. MUSCULOSKELETAL: Muscle strength and tone normal. SPINE: No scoliosis or deformity SKIN: No rashes CENTRAL NERVOUS SYSTEM: Alert and oriented -3. No focal deficits, tone is normal in all 4 extremities. PSYCHIATRIC: Alert and oriented -3. Appropriate affect. Intact judgment and insight. - Labs CBC & Chem 7: 12/19/18 07:09 12/19/18 07:09 Labs: Abnormal Lab Results - Last 24 Hours (Table) 12/19/18 12/19/18 12/20/18 Range/Units 16:54 21:18 06:07 POC Glucose (mg/dL) 298 H 223 H 60 L (75-99) mg/dL 12/20/18 12/20/18 12/20/18 Range/Units 06:26 06:38 11:44 POC Glucose (mg/dL) 66 L 71 L 161 H (75-99) mg/dL Microbiology - Last 24 Hours (Table) 12/19/18 12:50 Gram Stain - Preliminary Bronchoalviolar Lavage - Right Bronchial Washings Culture - Preliminary 12/19/18 12:50 Acid Fast Bacilli Smear - Final Bronchoalviolar Lavage - Right Acid Fast Bacilli Culture - Preliminary 12/19/18 12:50 Fungal Culture - Preliminary Bronchoalviolar Lavage - Right Assessment and Plan Plan: Assessment: #1 Acute hypoxic respiratory failure secondary to bilateral infiltrates with multilobar pneumonia versus interstitial lung disease or remotely cancer. The patient's pulmonary infiltrates are rather coarse and granular and I'm a bit concerned of a malignancy process. For that reason I'm going to monitor this pulmonary infiltrates and a follow-up chest x-ray make sure there is complete clearing. If not, a biopsy will be needed. #2 New onset atrial fibrillation with a rapid ventricular response currently on a heparin drip. He transitioned to Eliquis. #3 Acute exacerbation of chronic obstructive pulmonary disease secondary to above. #4 Previous history of chronic tobacco dependence. #5 Hypertension. #6 Hyperlipidemia. #7 Diabetes mellitus. Plan: Patient is doing well, no specific complaints, no worsening dyspnea, no cough or congestion, no hemoptysis, no fever or chills, bronchial lavage cultures are pending, no growth so far, patient continues on, ration of Zithromax and Rocephin, and oral prednisone. Obtain another home oxygen assessment, ambulate the patient, possibly patient may need supplemental oxygen at time until his pneumonia clears. Clinically he is asymptomatic, today's chest x-ray has been reviewed, showing some improvement in the appearance of right upper lobe and left lower lobe consolidation. Patient is stable for discharge home today on oral course of antibiotics, and prednisone. He will need follow-up in the office with Dr. Hodge in one or 2 weeks. I performed a history & physical examination of the patient and discussed their management with my nurse practitioner, Lilian Christian. I reviewed the nurse practitioner's note and agree with the documented findings and plan of care. Lung sounds are positive for diminished breath sounds. The findings and the impression was discussed with the patient. I attest to the documentation by the nurse practitioner. Time with Patient: Less than 30
[2018-12-20 12:55] VITALS: BP 90/34; PULSE 87; RESP 18; TEMP 97.6
--- NOTE | 2018-12-20 14:25 | P.DS ---
Providers Date of admission: 12/12/18 17:21 Expected date of discharge: 12/20/18 Attending physician: Kenroy Denis MD Consults: 12/12/18 17:23 Consult Physician Routine Consulting Provider: Erik Welsh Consult Reason/Comments: a fib Do you want consulting provider notified?: Yes 12/16/18 07:33 Consult Physician Routine Consulting Provider: Pete Walker Consult Reason/Comments: PNA Do you want consulting provider notified?: Already Contacted Primary care physician: Eleni Yee [facility] Course: (1) acute hypoxic respiratory failure secondary to multilobar pneumonia, possible interstitial lung disease, possible malignancy, pulmonary following Sepsis due to pneumonia Current Visit: Yes Status: Acute Code(s): J18.9 - PNEUMONIA, UNSPECIFIED ORGANISM; A41.9 - SEPSIS, UNSPECIFIED ORGANISM SNOMED Code(s): 04577433 (2) sepsis secondary to the above (3) Community acquired, multifocal pneumonia Current Visit: Yes Status: Acute Code(s): J18.9 - PNEUMONIA, UNSPECIFIED ORGANISM SNOMED Code(s): 296675823CLQQSI Code(s): 449693694 (4) Hypertension Current Visit: Yes Status: Acute Code(s): I10 - ESSENTIAL (PRIMARY) HYPERTENSION SNOMED Code(s): 99899405 (5) Hyperlipidemia Current Visit: Yes Status: Acute Code(s): E78.5 - HYPERLIPIDEMIA, UNSPECIFIED SNOMED Code(s): 03572536 (6) Elevated lactic acid level Current Visit: Yes Status: Acute Code(s): R79.89 - OTHER SPECIFIED ABNORMAL FINDINGS OF BLOOD CHEMISTRY SNOMED Code(s): 8338572 (7) Atrial fibrillation Current Visit: Yes Status: Acute Code(s): I48.91 - UNSPECIFIED ATRIAL FIBRILLATION SNOMED Code(s): 56549499 (8) severe pulmonary hypertension (9) moderate to severe tricuspid regurgitation (10) acute COPD exacerbation (11) diabetes mellitus Hospital course:Kenroy Lovelace is a 78 yo M with PMH of COPD, history of tobacco dependence, T2DM, HTN, HLD who presented to the ED on the recommendation of his director of curriculum after being seen in clinic yesterday. He reports cough, malaise and shortness of breath which has lasted approximately 1 week but became worse over the past 2-3 days. He was seen in the pulmonology office and CXR showed multifocal pneumonia so pt was instructed to present to the ED. He endorses feve rs and chills at home. On presentation to the ED he was hypoxic and tachycardic, WBC 10.4, lactic 3.7, BNP 1000, trop negative. CTA showed multifocal bilateral pneumonia. Pt was also noted to be in A fib on EKG. Pro calcitonin 2.5. 12/14/2018 Reports fluctuating episodes of nonproductive coughing, lower energy levels-weaker. Echo reported low normal LV function, EF 50-55% with moderate to severe tricuspid regurgitation, severe pulmonary hypertension, small pericardial effusion Showered, tolerated exertion well. Transitioning heparin into Eliquis. VSS, maintaining O2 sats in the 90s on 4 L nasal cannula. Afebrile, WBC 12, preliminary blood cultures no growth at 24 hours. 12/17/18 maintained on Zithromax, Rocephin, nebulized bronchodilators. Diuresing well on Lasix IV push with 24-hour I&O reflecting a decreased weight, down 1.1 kg. Chest x-ray reporting stable possibly improved aeration at the right costophrenic angle level, multilobar pneumonia. Patient remains O2 dependent, 85% on room air after ambulation, 88% on room air at rest. Oxygen has been arranged for discharge as per case management. Telemetry controlled atrial fibrillation. Pulmonary is discussing discharge versus further workup. Potential discharge home later this afternoon pending pulmonary clearance. Given the concern of malignancy, discharge placed on hold as per pulmonary with follow-up chest x-ray in a.m. ordered. Underwent bronchoscopy reporting right upper lobe and left lower lobe pneumonia, biopsies obtained, cytology pending. Follow up chest x-ray reported improvement in the appearance of right upper lobe and left lower lobe consolidation. Significant clinical improvement. Cleared by pulmonary for discharge. Exam General: Alert and dry, no acute distress Lungs: Improved air entry, clear, no rhonchi, no crackles,no expiratory wheezing CV: Irregularly irregular, controlled ventricular rate, no murmur. no edema, Peripheral pulses 2+ Abdomen: soft, nondistended, nontender, positive bowel sounds Neuro: No focal deficits Microbiology 12/19/18 12:50 Bronchoalviolar Lavage - Right Gram Stain - Preliminary 12/19/18 12:50 Bronchoalviolar Lavage - Right Bronchial Washings Culture - Preliminary 12/19/18 12:50 Bronchoalviolar Lavage - Right Acid Fast Bacilli Smear - Final 12/19/18 12:50 Bronchoalviolar Lavage - Right Acid Fast Bacilli Culture - Preliminary 12/19/18 12:50 Bronchoalviolar Lavage - Right Fungal Culture - Preliminary 12/12/18 15:03 Blood Blood Culture - Final No Growth after 144 hours The impression and plan of care has been dictated as directed. : I performed a history and examination of this patient, discussed the same with the dictator. I agree with the dictator's note ,documented as a scribe. Any additional findings or plans will be noted. Patient Condition at Discharge: Stable Plan - Discharge Summary Discharge Rx Participant: No New Discharge Prescriptions: New predniSONE 10 mg PO DIRECTED #18 tab Amoxic-Pot Clav 875-125Mg [Augmentin 875-125] 1 tab PO Q12HR #10 tablet Apixaban [Eliquis] 5 mg PO BID #60 tab guaiFENesin [Mucinex] 1,200 mg PO Q12HR tablet.er Continue Aspirin [Adult Low Dose Aspirin EC] 81 mg PO HS Montelukast [Singulair] 10 mg PO DAILY Hydrochlorothiazide [Hydrodiuril] 25 mg PO DAILY Budesonide/Formoterol Fumarate [Symbicort 160-4.5 Mcg Inhaler] 2 puff INHALATION RT-BID Linagliptin [Tradjenta] 5 mg PO DAILY Cholecalciferol [Vitamin D3 (25 Mcg = 1000 Iu)] 2,000 unit PO HS Tadalafil 10 - 20 mg PO ONCE PRN PRN Reason: E.D. amLODIPine [Norvasc] 5 mg PO DAILY Atorvastatin [Lipitor] 20 mg PO HS Valsartan 320 mg PO DAILY Discharge Medication List Aspirin [Adult Low Dose Aspirin EC] 81 mg PO HS 07/29/15 [History] Atorvastatin [Lipitor] 20 mg PO HS 12/12/18 [History] Budesonide/Formoterol Fumarate [Symbicort 160-4.5 Mcg Inhaler] 2 puff INHALATION RT-BID 12/12/18 [History] Cholecalciferol [Vitamin D3 (25 Mcg = 1000 Iu)] 2,000 unit PO HS 12/12/18 [History] Hydrochlorothiazide [Hydrodiuril] 25 mg PO DAILY 12/12/18 [History] Linagliptin [Tradjenta] 5 mg PO DAILY 12/12/18 [History] Montelukast [Singulair] 10 mg PO DAILY 12/12/18 [History] Tadalafil 10 - 20 mg PO ONCE PRN 12/12/18 [History] Valsartan 320 mg PO DAILY 12/12/18 [History] amLODIPine [Norvasc] 5 mg PO DAILY 12/12/18 [History] Amoxic-Pot Clav 875-125Mg [Augmentin 875-125] 1 tab PO Q12HR #10 tablet 12/17/18 [Rx] Apixaban [Eliquis] 5 mg PO BID #60 tab 12/17/18 [Rx] predniSONE 10 mg PO DIRECTED #18 tab 12/17/18 [Rx] guaiFENesin [Mucinex] 1,200 mg PO Q12HR tablet.er 12/20/18 [Rx] Follow up Appointment(s)/Referral(s): Erik Welsh MD [STAFF PHYSICIAN] - 12/28/18 10:45 am (Follow-up with Dr. Wlesh/Mirian Santo/Sada Barney Appointment with Mirian GREENE) Chang Hodge DO [Doctor of Osteopathic Medicine] - 01/01/19 2:15 pm Eleni Yee DO [Primary Care Provider] - 12/20/18 10:45 am (With Reanna GREENE) Ambulatory/Diagnostic Orders: Complete Blood Count w/diff [LAB.AMB] Time Frame: 3 Days, Location: None Selected Patient Instructions/Handouts: A-fib (Atrial Fibrillation) (DC), Pneumonia (DC), Safe Use of Anticoagulants (DC) Activity/Diet/Wound Care/Special Instructions: diuretics, DC recommendations/clearance as per pulmonary. O2 at discharge - order sent to [facility] - they will deliver prior to discharge - [phone] Appointment with respiratory therapist at [facility] @ [address] [place] [address] for conserving device testing - December 25 @10:30 a.m. - [phone] Junaid covered with a $30 copay - Rx filled at [facility]
--- NOTE | 2018-12-25 11:20 | CDI ---
Documentation Clarification Form Date: 12/25/18 From: Lacy Marinelli Phone: If you have a question about this query, please contact Vivien Scott, [employer] at [phone] between 8am and 5pm. Admit Date: 12/12/18 Discharge Date: 12/20/18 Patient Name: Kenroy Lovelace Visit Number: [id number] ATTENTION: The Clinical Documentation Specialists (CDI) and [facility] Coding Staff appreciate your assistance in clarifying documentation. Please respond to the clarification below the line at the bottom and electronically sign. The CDI & [facility] Coding staff will review the response and follow-up if needed. Please note: Queries are made part of the Legal Health Record. If you have any questions, please contact the author of this message via ITS. Dear Atrial Fibrillation is documented in your cardiology consult, ED note, Dr Walker's consult, HP, multiple PNs & DS. History/Risk Factors: sepsis w pneumonia, acute hypoxic respiratory failure, acidosis, AECOPD, DM, HTN Clinical Indicators: Presents with SOB. He has palpitations.Present w tachycardia, irregular rhythm and normal heart sounds. No PE. EKG/telemetry: Ventricular rate 91 bpm, no P waves appreciated, QRS complexes are narrow and irregular, there are some PVC's, there i no ST elevation or depression, atrial fibrillation by Dr Garcia Treatment: IV Heparin then switched to Eliquis In your professional opinion, can you please clarify the type of Atrial Fibrillation, if known? Chronic (with RVR) Persistent Other/unspecified Permanent Paroxysmal Persistent Permanent atrial fibrillation Long standing Other/unspecified Other, please specify Unable to determine Nature of atrial fibrillation: Unable to determine MTDD
== END 2018-12-20 17:38 | disposition home or self-care (01) | DRG 871 ==
LOC: EC 13:40 → 3SCARD 17:21
PROVIDERS: ADMIT Family Medicine; ATTEND Family Medicine
PROC: 0B9J8ZX Drainage of Left Lower Lung Lobe, Via Natural or Artificial Opening Endoscopic, Diagnostic (ICD-10-PCS; principal; 2018-12-19 12:40)
PROC: 0B9C8ZX Drainage of Right Upper Lung Lobe, Via Natural or Artificial Opening Endoscopic, Diagnostic (ICD-10-PCS; 2018-12-19 12:40)
DX: A41.9 Sepsis, unspecified organism (principal); J18.1 Lobar pneumonia, unspecified organism; J96.01 Acute respiratory failure with hypoxia; E87.2 Acidosis; J44.0 Chronic obstructive pulmonary disease with (acute) lower respiratory infection; J44.1 Chronic obstructive pulmonary disease with (acute) exacerbation; R64 Cachexia; I31.3 Pericardial effusion (noninflammatory); J84.9 Interstitial pulmonary disease, unspecified; I48.91 Unspecified atrial fibrillation; I27.20 Pulmonary hypertension, unspecified; I07.1 Rheumatic tricuspid insufficiency; I45.10 Unspecified right bundle-branch block; I11.9 Hypertensive heart disease without heart failure; E11.9 Type 2 diabetes mellitus without complications; E78.5 Hyperlipidemia, unspecified; Z99.81 Dependence on supplemental oxygen; Z79.82 Long term (current) use of aspirin; Z68.23 Body mass index [BMI] 23.0-23.9, adult; Z79.51 Long term (current) use of inhaled steroids; Z79.84 Long term (current) use of oral hypoglycemic drugs; Z79.899 Other long term (current) drug therapy; Z90.49 Acquired absence of other specified parts of digestive tract; Z98.890 Other specified postprocedural states; Z98.42 Cataract extraction status, left eye; Z98.41 Cataract extraction status, right eye; Z87.891 Personal history of nicotine dependence; Z82.49 Family history of ischemic heart disease and other diseases of the circulatory system; Z80.9 Family history of malignant neoplasm, unspecified; Z82.3 Family history of stroke
CPT/HCPCS: 31624; 31645; 36415; 71045; 71046; 71275; 80048; 80053; 82272; 83605; 83735; 83880; 84145; 84443; 84484; 85025; 85610; 85730; 87040; 87070; 87102; 87116; 87205; 87206; 87252; 87496; 87498; 87502; 87529; 87634; 87798; 88108; 88305; 89050; 93005; 93306; 94640; 94760; 96365; 96366; 96368; 96376; 99285

== ENCOUNTER 2018-12-26 21:29 | Emergency (ER) | payer MEDICARE, BC ==
[2018-12-26 21:41] VITALS: RESP 18
[2018-12-26 22:37] LABS: Basophils # (A) 0.1 k/uL (0-0.2); Basophils % (A) 1 %; Eosinophils # (A) 0.2 k/uL (0-0.7); Eosinophils % (A) 1 %; HCT 44.6 % (39.0-53.0); HGB 15.1 gm/dL (13.0-17.5); Lymphocytes # (A) 2.6 k/uL (1.0-4.8); Lymphocytes % (A) 19 %; MCH 30.4 pg (25.0-35.0); MCHC 33.9 g/dL (31.0-37.0); MCV 89.8 fL (80.0-100.0); Monocytes # (A) 0.6 k/uL (0-1.0); Monocytes % (A) 4 %; Neutrophils % (A) 73 %; Platelet Count 460 k/uL (150-450); RBC 4.97 m/uL (4.30-5.90); RDW 13.7 % (11.5-15.5); WBC 13.6 k/uL (3.8-10.6)
--- NOTE | 2018-12-26 22:42 | XR ---
EXAMINATION TYPE: XR chest 2V DATE OF EXAM: 12/26/2018 COMPARISON: 12/20/2018 HISTORY: Short of breath TECHNIQUE: Frontal and lateral views of the chest are obtained. FINDINGS: There is some patchy airspace infiltrate right upper lobe and left lower lobe. There is no heart failure. Heart is top normal. There is no definite pleural effusion. There are chest leads. Th oracic aorta is atheromatous. IMPRESSION: There is bilateral pneumonia improved compared to last exam. No heart failure seen.
[2018-12-26 22:48] LABS: Albumin 3.1 g/dL (3.5-5.0); Calcium 10.5 mg/dL (8.4-10.2); Potassium 3.9 mmol/L (3.5-5.1); Total Bilirubin 0.2 mg/dL (0.2-1.3); Total Protein 5.9 g/dL (6.3-8.2)
[2018-12-26] MEDS ORDERED: SODIUM CHLORIDE 0.9% 500 ML 500 ML IV STA (22:54)
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
[2018-12-26 23:47] VITALS: TEMP 98
[2018-12-26 23:52] VITALS: BP 106/61; PULSE 90
== END 2018-12-27 00:09 | disposition home or self-care (01) ==
LOC: EC 21:29
DX: J44.0 Chronic obstructive pulmonary disease with (acute) lower respiratory infection (principal); J18.9 Pneumonia, unspecified organism; D72.829 Elevated white blood cell count, unspecified; I48.91 Unspecified atrial fibrillation; E11.9 Type 2 diabetes mellitus without complications; E78.5 Hyperlipidemia, unspecified; I10 Essential (primary) hypertension; Z87.891 Personal history of nicotine dependence; Z79.51 Long term (current) use of inhaled steroids; Z79.52 Long term (current) use of systemic steroids; Z79.82 Long term (current) use of aspirin; Z79.84 Long term (current) use of oral hypoglycemic drugs; Z79.899 Other long term (current) drug therapy; Z82.49 Family history of ischemic heart disease and other diseases of the circulatory system
CPT/HCPCS: 36415; 71046; 80053; 84484; 85025; 93005; 96360; 99285

== ENCOUNTER 2021-04-25 14:25 | Observation (INO) | payer MEDICARE ==
[2021-04-25] MEDS ORDERED: ACETAMINOPHEN TAB 500 MG TAB PO STA (14:59)
[2021-04-25] MEDS ORDERED: SODIUM CHLORIDE 0.9% 1,000 ML IV STA (15:01)
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
[2021-04-25 15:29] LABS: Basophils % (A) 0 %; Eosinophils % (A) 0 %; HCT 37.9 % (39.0-53.0); HGB 12.4 gm/dL (13.0-17.5); Lymphocytes # (A) 0.5 k/uL (1.0-4.8); Lymphocytes % (A) 6 %; MCHC 32.6 g/dL (31.0-37.0); MCV 91.9 fL (80.0-100.0); Mean Platelet Volume 7.8; Monocytes # (A) 0.5 k/uL (0-1.0); Monocytes % (A) 5 %; Neutrophils # (A) 8.1 k/uL (1.3-7.7); Neutrophils % (A) 88 %; Platelet Count 302 k/uL (150-450); RBC 4.13 m/uL (4.30-5.90); RDW 13.2 % (11.5-15.5); WBC 9.1 k/uL (3.8-10.6)
[2021-04-25 15:44] LABS: Calcium 9.5 mg/dL (8.4-10.2); Magnesium 1.6 mg/dL (1.6-2.3); Potassium 4.5 mmol/L (3.5-5.1)
[2021-04-25 15:46] LABS: Influenza A Not Detected (Not Detectd); Influenza B Not Detected (Not Detectd)
--- NOTE | 2021-04-25 15:54 | XR ---
EXAMINATION TYPE: XR chest 1V portable DATE OF EXAM: 04/25/2021 COMPARISON: 11/13/2020 HISTORY: Cough and congestion TECHNIQUE: Single view FINDINGS: There is blunting of the costophrenic angles. There is mild pulmonary congestion. Heart is top normal in size. There are chest leads. IMPRESSION: Small pleural effusions. Mild congestion that is new compared to old exam and could be mi ld heart failure.
[2021-04-25] MEDS ORDERED: NALOXONE 0.4 MG/ML 1 ML VIAL IV PRN (15:57)
[2021-04-25] MEDS ORDERED: ONDANSETRON 4 MG/2 ML VIAL IVP PRN (15:57)
[2021-04-25] MEDS ORDERED: cefTRIAXone IN SWFI 1,000 MG/10 ML SYRINGE IVP STA (15:58)
[2021-04-25] MEDS ORDERED: AZITHROMYCIN 500 MG in SODIUM CHLORIDE 0.9% 250 ML IVPB STA (15:58)
[2021-04-25] MEDS ORDERED: SODIUM CHLORIDE 0.9% 1,000 ML IV SCH (16:00)
[2021-04-25 19:22] LABS: Appearance,Urine Clear (Clear); Bacteria,Urine Rare /hpf; Bilirubin,Urine Negative (Negative); Blood,Urine Small (Negative); Color,Urine Yellow; Glucose,Urine (UA) 3+ (Negative); Hyaline Casts,Urine 1 /lpf (0-2); Ketones,Urine Negative (Negative); Leukocyte Esterase,Urine Negative (Negative); Mucus,Urine Rare /hpf; Nitrite,Urine Negative (Negative); Protein,Urine 1+ (Negative); RBC,Urine 6 /hpf (0-5); Specific Gravity,Urine 1.013 (1.001-1.035); Urobilinogen,Urine <2.0 mg/dL (<2.0); WBC,Urine 7 /hpf (0-5)
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
[2021-04-25] MEDS: MONTELUKAST 10 MG TAB PO SCH (22:09)
[2021-04-25] MEDS: MAGNESIUM SULFATE-D5W PMX 1 GM in DEXTROSE/WATER 1 100ML.BAG IVPB SCH ×2 (22:09→23:16)
[2021-04-25] MEDS: FUROSEMIDE 10 MG/ML 2 ML VIAL IV SCH (22:09)
[2021-04-25] MEDS: METOPROLOL SUCCINATE (ER) 25 MG TAB.ER.24H PO SCH (22:09)
[2021-04-25] MEDS: APIXABAN 5 MG TAB PO SCH (22:09)
[2021-04-26 06:21] LABS: Glucose,Whole Blood 161 mg/dL (75-99)
[2021-04-26] MEDS: INSULIN ASPART (NovoLOG) 100 UNIT/ML VIAL SQ SCH ×4 (06:25→21:20)
[2021-04-26 08:28] LABS: Glucose,Whole Blood 238 mg/dL (75-99)
[2021-04-26] MEDS: APIXABAN 5 MG TAB PO SCH ×2 (08:33→21:19)
[2021-04-26] MEDS: FUROSEMIDE 10 MG/ML 2 ML VIAL IV SCH ×2 (08:41→21:25)
[2021-04-26] MEDS: TAMSULOSIN 0.4 MG CAP.ER.24H PO SCH ×2 (08:41→21:19)
[2021-04-26] MEDS: SYMBICORT 160-4.5 MCG INHALER INHALATION SCH ×2 (08:56→19:44)
[2021-04-26] MEDS: AZITHROMYCIN 500 MG TAB PO SCH (09:24)
[2021-04-26] MEDS: ARIPiprazole 2 MG TAB PO SCH (09:26)
[2021-04-26 09:58] LABS: Basophils # (A) 0.01 X 10*3/uL (0.00-0.10); Basophils % (A) 0.1 %; Eosinophils # (A) 0.01 X 10*3/uL (0.04-0.35); Eosinophils % (A) 0.1 %; HCT 33.7 % (39.6-50.0); HGB 10.9 g/dL (13.0-17.0); Immature Grans, Automated 0.6 %; Lymphocytes # (A) 0.91 X 10*3/uL (0.90-5.00); Lymphocytes % (A) 9.5 %; MCH 29.1 pg (27.0-32.0); MCHC 32.3 g/dL (32.0-37.0); MCV 89.9 fL (80.0-97.0); Mean Platelet Volume 10.4 fL (9.5-12.2); Monocytes # (A) 0.64 X 10*3/uL (0.20-1.00); Monocytes % (A) 6.7 %; NRBC Per 100 WBC 0 /100 WBCS (0.0-0.0); Neutrophils # (A) 7.97 X 10*3/uL (1.80-7.70); Platelet Count 300 X 10*3/uL (140-440); RBC 3.75 X 10*6/uL (4.40-5.60); RDW 14.1 % (11.5-14.5)
[2021-04-26 10:25] LABS: African American GFR (CKD) 72.1 (60.0-200.0); Anion Gap 9.7 mmol/L (10.00-18.00); BUN/Creat Ratio 22.18 Ratio (12.00-20.00); Blood Urea Nitrogen 24.4 mg/dL (9.0-27.0); Calcium 9.3 mg/dL (8.7-10.3); Carbon Dioxide 22.3 mmol/L (20.0-27.5); Non-African American GFR(CKD) 62.2 (60.0-200.0); Potassium 4.4 mmol/L (3.5-5.5)
[2021-04-26 11:50] LABS: Glucose,Whole Blood 86 mg/dL (75-99)
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
--- NOTE | 2021-04-26 15:03 | P.PN ---
Subjective Progress Note Date: 04/26/21 This is an 81-year-old gentleman with acute pneumonia and multiple other medical issues. Continues on Zithromax and Rocephin for community acquired pneumonia in a patient who was last hospitalized for pneumonia in November 2018. Diuresing on Lasix IV push, 24-hour I&O not available, renal function trending down, BUN 24.4, creatinine 1.1.continues maintaining O2 sats in the 90s on room air. Occasional productive cough with yellow sputum .Sodium improved, WNL. Hemoglobin decreased -10.9, platelets 300.Afebrile, T-max 101.2 , blood culture in progress, sputum culture not yet collected. Influenza type A/B/RSV/Sars/Covid not detected. Reports feeling better, denies chest pain, palpitations or increasing shortness of breath. Objective - Vital Signs Vital signs: Vital Signs Temp 98.3 F 04/26/21 08:00 Pulse 80 04/26/21 08:00 Resp 18 04/26/21 08:00 BP 112/57 04/26/21 08:00 Pulse Ox 94 L 04/26/21 08:00 Intake & Output 04/25/21 04/26/21 04/26/21 18:59 06:59 18:59 Weight 88.451 kg Other: # Voids 1 - Exam General: well nourished, well developed, NAD, sitting up at side of bed. Vitals reviewed Eyes: PERRL, EOMI, conjunctiva normal HENT: normocephalic, mucus membranes moist. Neck: supple, no JVD Lungs: normal respiratory effort, bilateral bases diminished with fine crackles CV: Irregularly irregular, no murmur. Peripheral pulses 2+, no peripheral edema Abdomen: soft, nondistended, no organomegaly, positive bowel sounds Skin: warm and dry. No rashes Neuro: A&Ox3, normal mood and affect - Labs CBC & Chem 7: 04/26/21 05:31 04/26/21 05:31 Labs: Abnormal Lab Results - Last 24 Hours (Table) 04/25/21 04/25/21 04/25/21 Range/Units 15:18 15:18 15:18 RBC 4.13 L (4.30-5.90) m/uL Hgb 12.4 L (13.0-17.5) gm/dL Hct 37.9 L (39.0-53.0) % Immature Gran # (0.00-0.04) X 10*3/uL Neutrophils # 8.1 H (1.3-7.7) k/uL Lymphocytes # 0.5 L (1.0-4.8) k/uL Eosinophils # (0.04-0.35) X 10*3/uL Sodium 135 L (137-145) mmol/L Anion Gap (10.00-18.00) mmol/L BUN 29 H (9-20) mg/dL BUN/Creatinine Ratio (12.00-20.00) Ratio Glucose 283 H (74-99) mg/dL POC Glucose (mg/dL) (75-99) mg/dL Plasma Lactic Acid Shamar 3.0 H* (0.7-2.0) mmol/L Urine Protein (Negative) Urine Glucose (UA) (Negative) Urine Blood (Negative) Urine RBC (0-5) /hpf Urine WBC (0-5) /hpf Urine Bacteria (None) /hpf Urine Mucus (None) /hpf 04/25/21 04/26/21 04/26/21 Range/Units 18:55 05:31 05:31 RBC 3.75 L (4.30-5.90) m/uL Hgb 10.9 L (13.0-17.5) gm/dL Hct 33.7 L (39.0-53.0) % Immature Gran # 0.06 H (0.00-0.04) X 10*3/uL Neutrophils # 7.97 H (1.3-7.7) k/uL Lymphocytes # (1.0-4.8) k/uL Eosinophils # 0.01 L (0.04-0.35) X 10*3/uL Sodium (137-145) mmol/L Anion Gap 9.70 L (10.00-18.00) mmol/L BUN (9-20) mg/dL BUN/Creatinine Ratio 22.18 H (12.00-20.00) Ratio Glucose 171 H (74-99) mg/dL POC Glucose (mg/dL) (75-99) mg/dL Plasma Lactic Acid Shamar (0.7-2.0) mmol/L Urine Protein 1+ H (Negative) Urine Glucose (UA) 3+ H (Negative) Urine Blood Small H (Negative) Urine RBC 6 H (0-5) /hpf Urine WBC 7 H (0-5) /hpf Urine Bacteria Rare H (None) /hpf Urine Mucus Rare H (None) /hpf 04/26/21 04/26/21 Range/Units 06:20 08:25 RBC (4.30-5.90) m/uL Hgb (13.0-17.5) gm/dL Hct (39.0-53.0) % Immature Gran # (0.00-0.04) X 10*3/uL Neutrophils # (1.3-7.7) k/uL Lymphocytes # (1.0-4.8) k/uL Eosinophils # (0.04-0.35) X 10*3/uL Sodium (137-145) mmol/L Anion Gap (10.00-18.00) mmol/L BUN (9-20) mg/dL BUN/Creatinine Ratio (12.00-20.00) Ratio Glucose (74-99) mg/dL POC Glucose (mg/dL) 161 H 238 H (75-99) mg/dL Plasma Lactic Acid Shamar (0.7-2.0) mmol/L Urine Protein (Negative) Urine Glucose (UA) (Negative) Urine Blood (Negative) Urine RBC (0-5) /hpf Urine WBC (0-5) /hpf Urine Bacteria (None) /hpf Urine Mucus (None) /hpf Assessment and Plan Assessment: Acute community-acquired pneumonia, left lower lobe , acute mild CHF, diastolic dysfunction Lactic acidosis, resolved Severe pulmonary hypertension Moderate to severe tricuspid regurgitation Chronic paroxysmal atrial fibrillation on anticoagulation with Eliquis. Hypertension Hyperlipidemia Diabetes mellitus type 2 noninsulin-dependent with hyperglycemia Prior history of smoking Plan: Continue on current medication regime ,monitoring and symptomatic treatment. Aggressive pulmonary toileting with nebulized bronchodilators, Symbicort, antibiotics Rocephin and Zithromax. Sputum and blood cultures in progress. Diuresing on Lasix IV push for mild CHF, Strict I&O's. Close monitoring of renal function, electrolytes, hemoglobin with repeat labs ordered for a.m. Levemir insulin added in addition to sliding scale for tighter blood sugar control, close monitoring of Accu-Cheks. The impression and plan of care has been dictated as directed. : I performed a history and examination of this patient, discussed the same with the dictator. I agree with the dictator's note ,documented as a scribe. Any additional findings or plans will be noted.
[2021-04-26] MEDS ORDERED: IPRATROPIUM-ALBUTEROL 3 ML NEB INHALATION PRN (15:04)
[2021-04-26] MEDS: ACETAMINOPHEN TAB 325 MG TAB PO PRN ×2 (15:32→21:20)
[2021-04-26] MEDS: PANTOPRAZOLE 40 MG/10 ML VIAL IVP SCH (15:33)
[2021-04-26] MEDS: IPRATROPIUM-ALBUTEROL 3 ML NEB INHALATION SCH ×2 (16:15→19:45)
[2021-04-26 17:33] LABS: Glucose,Whole Blood 177 mg/dL (75-99)
[2021-04-26 20:08] LABS: Glucose,Whole Blood 137 mg/dL (75-99)
[2021-04-26] MEDS ORDERED: VALSARTAN 80 MG TAB PO SCH (21:00)
[2021-04-26] MEDS ORDERED: ATORVASTATIN 20 MG TAB PO SCH (21:00)
[2021-04-26] MEDS: METOPROLOL SUCCINATE (ER) 25 MG TAB.ER.24H PO SCH (21:19)
[2021-04-26] MEDS: MONTELUKAST 10 MG TAB PO SCH (21:19)
[2021-04-26] MEDS: INSULIN DETEMIR (LEVEMIR) 100 UNIT/ML SYR SQ SCH (21:21)
[2021-04-27] MEDS: SYMBICORT 160-4.5 MCG INHALER INHALATION SCH (07:07)
[2021-04-27] MEDS: IPRATROPIUM-ALBUTEROL 3 ML NEB INHALATION SCH ×2 (07:07→11:08)
[2021-04-27 07:20] LABS: Glucose,Whole Blood 152 mg/dL (75-99)
[2021-04-27 07:29] VITALS: BP 112/62; PULSE 78; TEMP 98.8
[2021-04-27] MEDS: PANTOPRAZOLE 40 MG/10 ML VIAL IVP SCH (07:34)
[2021-04-27] MEDS: APIXABAN 5 MG TAB PO SCH (07:35)
[2021-04-27] MEDS: INSULIN DETEMIR (LEVEMIR) 100 UNIT/ML SYR SQ SCH (07:35)
[2021-04-27] MEDS: TAMSULOSIN 0.4 MG CAP.ER.24H PO SCH (07:35)
[2021-04-27] MEDS: ARIPiprazole 2 MG TAB PO SCH (07:35)
[2021-04-27] MEDS: AZITHROMYCIN 500 MG TAB PO SCH (07:35)
[2021-04-27] MEDS: FUROSEMIDE 10 MG/ML 2 ML VIAL IV SCH (07:36)
[2021-04-27 09:27] VITALS: RESP 20
[2021-04-27] MEDS: INSULIN ASPART (NovoLOG) 100 UNIT/ML VIAL SQ SCH (09:31)
--- NOTE | 2021-04-27 11:23 | P.DS ---
Providers Date of admission: 04/25/21 17:37 Expected date of discharge: 04/27/21 Attending physician: Poli Ceron Consults: 04/25/21 21:39 Consult Physician Routine Consulting Provider: Pete Walker Consult Reason/Comments: Pneumonia Do you want consulting provider notified?: Yes, Notify in am Primary care physician: [facility] Course: HISTORY OF PRESENT ILLNESS This is an 81-year-old gentleman with acute pneumonia and multiple other medical issues. Continues on Zithromax and Rocephin for community acquired pneumonia in a patient who was last hospitalized for pneumonia in November 2018. Diuresing on Lasix IV push, 24-hour I&O not available, renal function trending down, BUN 24.4, creatinine 1.1.continues maintaining O2 sats in the 90s on room air. Occasional productive cough with yellow sputum .Sodium improved, WNL. Hemoglobin decreased -10.9, platelets 300.Afebrile, T-max 101.2 , blood culture in progress, sputum culture not yet collected. Influenza type A/B/RSV/Sars/Covid not detected. Reports feeling better, denies chest pain, palpitations or increasing shortness of breath. 3/: Patient is found sitting on the edge of the bed. No respiratory distress. He is off oxygen. He denies any shortness of breath no significant cough. No fever or chills. Patient will be transitioned to oral antibiotics and plan for discharge home today. DISCHARGE DIAGNOSES Acute community-acquired pneumonia, left lower lobe. Acute mild diastolic heart failure. Lactic acidosis, resolved. Severe pulmonary hypertension. Moderate to severe tricuspid regurgitation. Chronic paroxysmal atrial fibrillation on anticoagulation with Eliquis. Hypertension. Hyperlipidemia. Diabetes mellitus type 2 noninsulin-dependent with hyperglycemia. Benign prostatic hypertrophy. Remote history of tobacco use and dependence. DISCHARGE PLAN HOME with [facility]. Greater than 35 minutes was utilized and coordinating patient's discharge. Impression and plan of care have been directed as dictated by the signing physician. Kalee Vital nurse practitioner acting as scribe for signing physician. Patient Condition at Discharge: Good Plan - Discharge Summary New Discharge Prescriptions: New Amoxicillin/Potassium Clav [Augmentin 500-125 Tablet] 1 tab PO Q12HR 3 Days #6 tab Continue Montelukast [Singulair] 10 mg PO HS Budesonide/Formoterol Fumarate [Symbicort 160-4.5 Mcg Inhaler] 2 puff INHALATION RT-BID Atorvastatin [Lipitor] 20 mg PO HS Apixaban [Eliquis] 5 mg PO BID #60 tab Ergocalciferol [Vitamin D2 (1250 Mcg = 71604 Iu)] 1,250 mcg PO FR Valsartan 80 mg PO HS metFORMIN HCL 500 mg PO W/SUPPER Spironolactone [Aldactone] 37.5 mg PO DAILY Furosemide [Lasix] 20 mg PO DAILY Tamsulosin [Flomax] 0.4 mg PO BID Albuterol Inhaler [Ventolin Hfa Inhaler] 2 puff INHALATION RT-Q6H PRN PRN Reason: Shortness Of Breath Metoprolol Succinate (ER) [Toprol XL] 25 mg PO HS ARIPiprazole [Abilify] 2 mg PO DAILY Furosemide [Lasix] 40 mg PO DAILY Discharge Medication List Atorvastatin [Lipitor] 20 mg PO HS 12/12/18 [History] Budesonide/Formoterol Fumarate [Symbicort 160-4.5 Mcg Inhaler] 2 puff INHALATION RT-BID 12/12/18 [History] Montelukast [Singulair] 10 mg PO HS 12/12/18 [History] Apixaban [Eliquis] 5 mg PO BID #60 tab 12/17/18 [Rx] ARIPiprazole [Abilify] 2 mg PO DAILY 04/25/21 [History] Albuterol Inhaler [Ventolin Hfa Inhaler] 2 puff INHALATION RT-Q6H PRN 04/25/21 [History] Ergocalciferol [Vitamin D2 (1250 Mcg = 42621 Iu)] 1,250 mcg PO FR 04/25/21 [History] Furosemide [Lasix] 20 mg PO DAILY 04/25/21 [History] Furosemide [Lasix] 40 mg PO DAILY 04/25/21 [History] Metoprolol Succinate (ER) [Toprol XL] 25 mg PO HS 04/25/21 [History] Spironolactone [Aldactone] 37.5 mg PO DAILY 04/25/21 [History] Tamsulosin [Flomax] 0.4 mg PO BID 04/25/21 [History] Valsartan 80 mg PO HS 04/25/21 [History] metFORMIN HCL 500 mg PO W/SUPPER 04/25/21 [History] Amoxicillin/Potassium Clav [Augmentin 500-125 Tablet] 1 tab PO Q12HR 3 Days #6 tab 04/27/21 [Rx] Follow up Appointment(s)/Referral(s): Poli Ceron MD [Primary Care Provider] - 3 Days [facility] [NON-STAFF] - 1-2 Days Pete Walker MD [STAFF PHYSICIAN] - 05/20/21 1:00 pm Patient Instructions/Handouts: Heart Failure (GEN), Upper Respiratory Infection (GEN), COPD (Chronic Obstructive Pulmonary Disease) (GEN) Discharge Disposition: HOME WITH HOME HEALTH SERVICES
--- NOTE | 2021-04-27 11:37 | P.PN ---
<Lilian Christian M - Last Filed: 04/27/21 11:29> Subjective Progress Note Date: 04/27/21 Principal diagnosis: Fever, chills, cough This is a 81-year-old patient who is coming in for suspected pneumonia. The patient became ill at home and the patient was having increased cough and congestion and cold chills and was feeling weak and his appetite was quite diminished and for that reason he ended up coming into the hospital. The patient is known to have COPD. The patient also has history of atrial fibrillation, paroxysmal, in addition to history of hypertension, hyperlipidemia and diabetes mellitus.. Note that the patient came into the hospital and the patient underwent a chest x-ray that showed some infiltration of the left lung base with possibility of a small pleural effusion and mild CHF. The patient was febrile with a temperature of 101.2 and he was slightly tachycardic.. The patient however was able to maintain her pulse ox above 90% and the patient continues to be on room air oxygen. His COVID 19 testing came back negative. The patient is already been vaccinated. Further investigation showed that the patient had mild lactic acidosis of 3.0. His white cell count was at 9.1 with a hemoglobin of 12 and a proBNP level of 47. His UA showed +3 glucose, +1 protein and small amount of blood and leukocyte esterase was also negative. The patient was diagnosed having a pneumonia and for that reason the patient was hospitalized and started on examination Rocephin and Zithromax. His early feeling better. I witnessed some yellowish sputum. He is coughing up on jayesh thorpe's evaluation. His last hospitalization for pneumonia was back in November 2018. His early feeling better. No altered mentation. No hemoptysis. No pleurisy. He is an ex-smoker. On 04/27/2021 patient seen in follow-up on medical surgical floor. He is resting comfortably in bed, his had no fever or chills overnight, vital signs have been stable, denies any worsening dyspnea, room air pulse ox is 92%, no complaints of chest pain, patient is coughing up some yellowish colored phlegm, no hemoptysis, he continues on antibiotics, he is on azithromycin and Rocephin, he is on inhaled bronchodilators, he is on Lasix 20 mg every 12 hours, still has 1+ edema in his bilateral lower extremities which he states is quite normal for him. He's had no acute events overnight. Sputum was sent for culture, pending, blood cultures show no growth Objective - Vital Signs Vital signs: Vital Signs Temp 98.8 F 04/27/21 07:00 Pulse 74 04/27/21 07:18 Resp 20 04/27/21 08:00 BP 112/62 04/27/21 07:00 Pulse Ox 92 L 04/27/21 01:00 Intake & Output 04/26/21 04/27/21 04/27/21 18:59 06:59 18:59 Intake Total 240 240 90 Output Total 200 550 200 Balance 40 -310 -110 Intake: Oral 240 240 90 Output: Urine 200 550 200 Other: # Voids 1 - Exam GENERAL EXAM: Alert, very pleasant, 81-year-old white male on room air with a pulse ox of 92%, comfortable in no apparent distress. HEAD: Normocephalic/atraumatic. EYES: Normal reaction of pupils, equal size. Conjunctiva pink, sclera white. NOSE: Clear with pink turbinates. THROAT: No erythema or exudates. NECK: No masses, no JVD, no thyroid enlargement, no adenopathy. CHEST: No chest wall deformity. Symmetrical expansion. LUNGS: Equal air entry with no crackles, wheeze, rhonchi or dullness. CVS: Regular rate and rhythm, normal S1 and S2, no gallops, no murmurs, no rubs ABDOMEN: Soft, nontender. No hepatosplenomegaly, normal bowel sounds, no guarding or rigidity. EXTREMITIES: No clubbing, 1+ edema, no cyanosis, 2+ pulses and upper and lower extremities. MUSCULOSKELETAL: Muscle strength and tone normal. SPINE: No scoliosis or deformity SKIN: No rashes CENTRAL NERVOUS SYSTEM: Alert and oriented -3. No focal deficits, tone is normal in all 4 extremities. PSYCHIATRIC: Alert and oriented -3. Appropriate affect. Intact judgment and insight. - Labs CBC & Chem 7: 04/26/21 05:31 04/26/21 05:31 Labs: Abnormal Lab Results - Last 24 Hours (Table) 04/26/21 04/26/21 04/27/21 Range/Units 17:18 20:06 06:50 POC Glucose (mg/dL) 177 H 137 H 152 H (75-99) mg/dL Microbiology - Last 24 Hours (Table) 04/25/21 15:45 Blood Culture - Preliminary Blood No Growth after 24 hours 04/25/21 15:30 Blood Culture - Preliminary Blood No Growth after 24 hours Assessment and Plan Plan: Assessment: #1. Acute febrile illness the possibility of left lower lobe pneumonia treated with azithromycin and Rocephin. Currently his fever pattern has improved and patient has been afebrile in last 24 hours #2. Acute left lower lobe pneumonia, clinically improving, patient has been afebrile #3. History of COPD #4. History of paroxysmal atrial fibrillation on Eliquis #5. Hypertension #6. Hyperlipidemia #7. Diabetes mellitus #8. Mild lactic acidosis improved #9. Chronic lower extremity edema #10. Prior history of smoking #11. Severe pulmonary hypertension #12. Chronic CHF with diastolic dysfunction Plan: Patient has been afebrile Vital signs are stable Breathing comfortably Patient has been diuresed Increase activity as tolerated No acute events overnight Could be considered for discharge home if cleared by medicine He can complete outpatient course of antibiotics Outpatient follow-up with Dr. Walker in the office in one week I performed a history & physical examination of the patient and discussed their management with my nurse practitioner, Lilian Christian. I reviewed the nurse practitioner's note and agree with the documented findings and plan of care. Lung sounds are positive for dim breath sounds throughout the lung young. The findings and the impression was discussed with the patient. I attest to the documentation by the nurse practitioner. I have personally seen and examined the patient, performed the documentation and the assessment and plan as written. Number of minutes spent on the visit: [10] Time with Patient: Less than 30 <Pete Walker - Last Filed: 04/27/21 18:09> Objective - Vital Signs Vital signs: Vital Signs Temp 98.8 F 04/27/21 07:00 Pulse 74 04/27/21 07:18 Resp 20 04/27/21 08:00 BP 112/62 04/27/21 07:00 Pulse Ox 92 L 04/27/21 01:00 Intake & Output 04/26/21 04/27/21 04/27/21 18:59 06:59 18:59 Intake Total 240 240 90 Output Total 200 550 200 Balance 40 -310 -110 Intake: Oral 240 240 90 Output: Urine 200 550 200 Other: # Voids 1 - Labs CBC & Chem 7: 04/27/21 07:17 04/27/21 07:17 Labs: Abnormal Lab Results - Last 24 Hours (Table) 04/26/21 04/27/21 04/27/21 Range/Units 20:06 06:50 07:17 RBC 3.59 L (4.40-5.60) X 10*6/uL Hgb 10.2 L (13.0-17.0) g/dL Hct 32.5 L (39.6-50.0) % MCHC 31.4 L (32.0-37.0) g/dL Immature Gran # 0.05 H (0.00-0.04) X 10*3/uL Lymphocytes # 0.82 L (0.90-5.00) X 10*3/uL Anion Gap (10.00-18.00) mmol/L Est GFR (CKD-EPI)NonAf (60.0-200.0) Glucose (70-110) mg/dL POC Glucose (mg/dL) 137 H 152 H (75-99) mg/dL 04/27/21 Range/Units 07:17 RBC (4.40-5.60) X 10*6/uL Hgb (13.0-17.0) g/dL Hct (39.6-50.0) % MCHC (32.0-37.0) g/dL Immature Gran # (0.00-0.04) X 10*3/uL Lymphocytes # (0.90-5.00) X 10*3/uL Anion Gap 9.40 L (10.00-18.00) mmol/L Est GFR (CKD-EPI)NonAf 56.0 L (60.0-200.0) Glucose 154 H (70-110) mg/dL POC Glucose (mg/dL) (75-99) mg/dL Microbiology - Last 24 Hours (Table) 04/27/21 07:30 Sputum Culture - Preliminary Sputum 04/25/21 15:45 Blood Culture - Preliminary Blood No Growth after 24 hours 04/25/21 15:30 Blood Culture - Preliminary Blood No Growth after 24 hours Assessment and Plan Plan: I have personally seen and examined the patient and reviewed the documentation. I performed a joint evaluation with the nurse practitioner in this evaluation was done more than 20 minutes. I fully agree with the documentation above and the plan of care.
[2021-04-27 12:02] LABS: Glucose,Whole Blood 95 mg/dL (75-99)
[2021-04-27 12:09] LABS: Basophils # (A) 0.02 X 10*3/uL (0.00-0.10); Basophils % (A) 0.2 %; Eosinophils # (A) 0.06 X 10*3/uL (0.04-0.35); Eosinophils % (A) 0.7 %; HCT 32.5 % (39.6-50.0); HGB 10.2 g/dL (13.0-17.0); Immature Grans, Automated 0.6 %; Lymphocytes # (A) 0.82 X 10*3/uL (0.90-5.00); Lymphocytes % (A) 9.7 %; MCH 28.4 pg (27.0-32.0); MCHC 31.4 g/dL (32.0-37.0); MCV 90.5 fL (80.0-97.0); Mean Platelet Volume 10.3 fL (9.5-12.2); Monocytes # (A) 0.69 X 10*3/uL (0.20-1.00); Monocytes % (A) 8.2 %; NRBC Per 100 WBC 0 /100 WBCS (0.0-0.0); Neutrophils # (A) 6.81 X 10*3/uL (1.80-7.70); Neutrophils % (A) 80.6 %; Platelet Count 341 X 10*3/uL (140-440); RBC 3.59 X 10*6/uL (4.40-5.60); RDW 14.2 % (11.5-14.5); WBC 8.45 X 10*3/uL (4.50-10.00)
[2021-04-27 12:31] LABS: African American GFR (CKD) 64.9 (60.0-200.0); Anion Gap 9.4 mmol/L (10.00-18.00); BUN/Creat Ratio 16.33 Ratio (12.00-20.00); Blood Urea Nitrogen 19.6 mg/dL (9.0-27.0); Calcium 9.3 mg/dL (8.7-10.3); Carbon Dioxide 23.6 mmol/L (20.0-27.5); Magnesium 2.1 mg/dL (1.5-2.4); Potassium 4.5 mmol/L (3.5-5.5)
[2021-04-27 13:37] LABS: Coronavirus SARS CoV-2 Not Detected (Not Detected)
[2021-04-28] MEDS ORDERED: PANTOPRAZOLE 40 MG TABLET PO SCH (07:30)
[2021-04-30] MEDS ORDERED: ERGOCALCIFEROL 1,250 MCG (50,000 IU) CAPSULE PO SCH (09:00)
== END 2021-04-27 13:38 | disposition home health service (06) ==
LOC: EC 14:25 → 6NMEDSUR 17:37
PROVIDERS: ADMIT Internal Medicine Geriatric Medicine; ATTEND Internal Medicine Geriatric Medicine
DX: J18.9 Pneumonia, unspecified organism (principal); J44.0 Chronic obstructive pulmonary disease with (acute) lower respiratory infection; I11.0 Hypertensive heart disease with heart failure; I50.30 Unspecified diastolic (congestive) heart failure; I48.0 Paroxysmal atrial fibrillation; Z20.822 Contact with and (suspected) exposure to COVID-19; Z87.01 Personal history of pneumonia (recurrent); E11.65 Type 2 diabetes mellitus with hyperglycemia; E78.5 Hyperlipidemia, unspecified; E86.0 Dehydration; R19.7 Diarrhea, unspecified; R06.82 Tachypnea, not elsewhere classified; R00.0 Tachycardia, unspecified; I07.1 Rheumatic tricuspid insufficiency; I27.20 Pulmonary hypertension, unspecified; N40.0 Benign prostatic hyperplasia without lower urinary tract symptoms; Z98.41 Cataract extraction status, right eye; Z98.42 Cataract extraction status, left eye; K46.9 Unspecified abdominal hernia without obstruction or gangrene; M79.89 Other specified soft tissue disorders; Z79.01 Long term (current) use of anticoagulants; Z79.4 Long term (current) use of insulin; Z79.51 Long term (current) use of inhaled steroids; Z79.84 Long term (current) use of oral hypoglycemic drugs; Z79.899 Other long term (current) drug therapy; Z87.891 Personal history of nicotine dependence; Z82.3 Family history of stroke; Z82.49 Family history of ischemic heart disease and other diseases of the circulatory system
CPT/HCPCS: 99284; 96376 ×3; 96367 ×2; 96375 ×2; 96361; 96365; 96366; 36415; 94640 ×2; 93005; 83880; 80048 ×3; 83605; 83735 ×2; 85025 ×3; 81001; 87040; 87070; 87205; 84145; 87636; 71045; G0378 ×3; U0003; U0005; J1940 ×3; J0456; J0696 ×3; J3475; C9113 ×2

== ENCOUNTER → 2021-07-13 | Outpatient (CLI) | payer MEDICARE ==
--- NOTE | 2021-07-13 16:43 | US ---
EXAMINATION TYPE: US abdomen complete DATE OF EXAM: 07/13/2021 COMPARISON: None CLINICAL HISTORY: 81-year-old male K76.6 PORTAL HYPERTENSION. Portal hypertension. Cholecystectomy pe r CT 2017. Patient is poor historian. TECHNIQUE: Multiple sonographic images of the abdomen are obtained. FINDINGS: EXAM MEASUREMENTS: Liver Length: 14.6 cm CBD: 0.59 cm Spleen: 10.1 cm Right Kidney: 11.6 x 6.7 x 5.0 cm Left Kidney: 11.2 x 5.9 x 5.9 cm Client Director notes: Very limited due to overlying bowel gas. Pancreas: Obscured. Liver: Appears coarse in echotexture. Benign cyst within the left lobe: 1.3 x 1.5 x 0.8 cm. Gallbladder: Cholecystectomy Evidence for sonographic Grace's sign: No CBD: Appears wnl Spleen: Appears wnl Right Kidney: Complex cyst with a mildly thickened internal septation measuring 3.8 x 3.4 x 2.6 cm. B enign cyst laterally: 2.7 x 2.6 x 2.1 cm. Left Kidney: No hydronephrosis or masses seen Upper IVC: Slightly limited, appears wnl. Abd Aorta: Obscured by gas. Portal vein: Patent. Flow appears to be hepatopedal. Portal vein measures 14.5 mm, mildly dilated. Pe ak systolic velocity around 10 to 15 cm/s which is slightly diminished. Incidental finding: Suggestion of an underlying right pleural effusion in transverse liver imaging. IMPRESSION: 1. Slight heterogeneous hepatic parenchyma suggests nonspecific hepatocellular disease. 2. Mildly dilated main portal vein at 1.5 cm. The peak systolic velocity is also mildly diminished ra nging from 10-15 cm/s. Findings suggest portal venous hypertension. 3. Mildly complex cyst of the right ovary measuring 3.8 cm. There may be a thin internal septation. C ontrast-enhanced renal mass protocol CT or MRI recommended to better characterize and determine any s uspicious changes compared to the old 11/05/2016 CT. 4. Incidental right pleural effusion.
== END | disposition home or self-care (01) ==
LOC: RADUSWWP 07:25
PROVIDERS: ATTEND Internal Medicine Geriatric Medicine
DX: K76.6 Portal hypertension (principal)
CPT/HCPCS: 76700

== ENCOUNTER 2021-07-25 12:02 | Observation (INO) | payer MEDICARE ==
[2021-07-25 13:37] LABS: Basophils # (A) 0.1 k/uL (0-0.2); Basophils % (A) 1 %; Eosinophils # (A) 0.1 k/uL (0-0.7); Eosinophils % (A) 0 %; HCT 44.7 % (39.0-53.0); HGB 14.7 gm/dL (13.0-17.5); Lymphocytes # (A) 1.3 k/uL (1.0-4.8); Lymphocytes % (A) 10 %; MCH 30.2 pg (25.0-35.0); MCHC 32.9 g/dL (31.0-37.0); MCV 91.8 fL (80.0-100.0); Mean Platelet Volume 7.9; Monocytes # (A) 0.6 k/uL (0-1.0); Monocytes % (A) 5 %; Neutrophils # (A) 10.2 k/uL (1.3-7.7); Neutrophils % (A) 83 %; Platelet Count 398 k/uL (150-450); RBC 4.87 m/uL (4.30-5.90); RDW 14.1 % (11.5-15.5); WBC 12.3 k/uL (3.8-10.6)
[2021-07-25 13:39] LABS: Partial Thromboplastin Time 23.9 sec (22.0-30.0); Prothrombin Time 10.4 sec (9.0-12.0)
[2021-07-25 13:46] LABS: Magnesium 1.8 mg/dL (1.6-2.3); Potassium 4.3 mmol/L (3.5-5.1); Total Bilirubin 0.3 mg/dL (0.2-1.3); Total Protein 7.1 g/dL (6.3-8.2)
--- NOTE | 2021-07-25 13:57 | XR ---
EXAMINATION TYPE: XR chest 2V DATE OF EXAM: 07/25/2021 COMPARISON: 04/25/2021 INDICATION: Yes TECHNIQUE: Frontal and lateral views of the chest are obtained. FINDINGS: The heart size is normal. The pulmonary vasculature is normal. Minimal right pleural effusion is present. There is hyperinflation flattening of the diaphragms isac tible with COPD.. Follow-up exams can be performed as clinically indicated. IMPRESSION: 1. Minimal right pleural effusion. 2. Early for COPD
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
[2021-07-25 16:19] LABS: Appearance,Urine Clear (Clear); Bilirubin,Urine Negative (Negative); Blood,Urine Small (Negative); Color,Urine Light Yellow; Glucose,Urine (UA) Negative (Negative); Ketones,Urine Negative (Negative); Leukocyte Esterase,Urine Negative (Negative); Mucus,Urine Rare /hpf; Nitrite,Urine Negative (Negative); Protein,Urine 1+ (Negative); RBC,Urine 5 /hpf (0-5); Specific Gravity,Urine 1.011 (1.001-1.035); Squamous Epithelial Cell,Urine <1 /hpf (0-4); Urobilinogen,Urine <2.0 mg/dL (<2.0); WBC,Urine 1 /hpf (0-5)
[2021-07-25] MEDS ORDERED: ONDANSETRON 4 MG/2 ML VIAL IVP PRN (16:24)
[2021-07-25] MEDS ORDERED: NALOXONE 0.4 MG/ML 1 ML VIAL IV PRN (16:24)
[2021-07-25 19:38] LABS: Glucose,Whole Blood 103 mg/dL (75-99)
[2021-07-25] MEDS: SODIUM CHLORIDE 0.9% 1,000 ML IV SCH (20:11)
[2021-07-25] MEDS ORDERED: ALBUTEROL NEBULIZED 2.5 MG/3 ML INHALATION PRN (20:18)
[2021-07-25] MEDS: INSULIN ASPART (NovoLOG) 100 UNIT/ML VIAL SQ SCH (21:03)
[2021-07-25] MEDS: MONTELUKAST 10 MG TAB PO SCH (21:27)
[2021-07-25] MEDS: TAMSULOSIN 0.4 MG CAP.ER.24H PO SCH (21:27)
[2021-07-25] MEDS: ATORVASTATIN 20 MG TAB PO SCH (21:27)
[2021-07-25] MEDS: APIXABAN 5 MG TAB PO SCH (21:27)
[2021-07-26 07:33] LABS: Glucose,Whole Blood 143 mg/dL (75-99)
[2021-07-26] MEDS: INSULIN ASPART (NovoLOG) 100 UNIT/ML VIAL SQ SCH ×4 (08:12→20:46)
[2021-07-26] MEDS: TAMSULOSIN 0.4 MG CAP.ER.24H PO SCH ×2 (08:12→20:27)
[2021-07-26] MEDS: APIXABAN 5 MG TAB PO SCH ×2 (08:12→20:27)
[2021-07-26] MEDS: ARIPiprazole 2 MG TAB PO SCH (08:13)
[2021-07-26] MEDS: SYMBICORT 160-4.5 MCG INHALER INHALATION SCH ×2 (08:38→20:15)
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
--- NOTE | 2021-07-26 11:49 | CONS ---
CONSULTATION This is an 81-year-old gentleman who presented to hospital with symptoms of fatigue, tiredness and not feeling well and was found to have significantly elevated BUN secondary to intravascular volume depletion. He was recently seen in Cardiology and was found to be in congestive heart failure and was started on diuretics and lost nearly 30 pounds. Patient's clinical presentation seems to be related to hypovolemia, prerenal azotemia and intravascular volume depletion. I have been consulted because of his known cardiac history and the bradycardia that was noted on this admission. At the time of my evaluation this morning, patient does not have chest pain or difficulty in breathing, does not have leg edema. He seems somewhat fatigued and tired at rest. The patient has history of dyspnea on exertion and an abnormal stress test and recently underwent cardiac catheterization that revealed mild non-obstructive CAD and normal left ventricular end-diastolic pressures. His EKG shows sinus rhythm with PVCs and his monitor also shows sinus rhythm with frequent PVCs. He has a history of paroxysmal atrial fibrillation and is currently on Eliquis for the same. The plan at this stage is to hydrate him. I am going to start him on 100 mL/hour of fluids. The patient has a history of normal LV systolic function and normal filling pressures from not too long ago. PAST MEDICAL HISTORY: Significant for paroxysmal atrial fibrillation, [id number] diabetes, hypertension, COPD, mild non-obstructive CAD. CURRENT MEDICATIONS: Current medications include: 1. Metolazone 2.5 mg three times a day. 2. Metformin. 3. Glipizide. 4. Flomax. 5. Aldactone. 6. Singulair. 7. Toprol-XL 25 mg daily. 8. Lasix 40 b.i.d. 9. Lipitor. 10.Eliquis. 11.Abilify. ALLERGIES: There are NO KNOWN DRUG ALLERGIES. FAMILY HISTORY: Negative for premature coronary artery disease. SOCIAL HISTORY: Negative for smoking, EtOH abuse or drug abuse. REVIEW OF SYSTEMS: HEENT is unremarkable. CARDIAC: As described above. RESPIRATORY: As described above. GI: Negative. GENITOURINARY: Significant for renal insufficiency. PSYCHOSOCIAL: Negative. DERMATOLOGICAL: Negative. CONSTITUTIONAL: Significant for fatigue, tiredness, not feeling well. Rest of the system review is not relevant. PHYSICAL EXAMINATION: Patient is comfortable at rest. Heart rate is 80 beats per minute. Blood pressure is 107/50, respiratory rate is 18. Oxygen saturation is 97% on room air. There is no jugular venous distention. Carotid upstroke is normal. There is no bruit. Chest exam reveals good air entry bilaterally. Heart exam reveals first and second heart sounds. No gallop. No murmur. Abdomen is soft, nontender. Examination of extremities did not reveal any edema. Peripheral pulses are felt. LABS: Hemoglobin 14.7. Platelet count is 398. Potassium is 4.3, BUN 67, creatinine 1.3. The patient had a BUN of 29 a month ago. Troponin is negative. BNP is normal. ASSESSMENT: 1. Fatigue, tiredness, not feeling well secondary to acute-onset renal failure due to intravascular volume depletion secondary to over-diuresis. 2. Paroxysmal atrial fibrillation. 3. Mild nonobstructive coronary artery disease. 4. Patient does not have congestive heart failure. PLAN: I am going to give him IV fluids at 100 mL/hour. Continue his anticoagulant. Follow his electrolytes. Hopefully home tomorrow. MMODL / IJN: [id number] /
[2021-07-26 12:00] LABS: Glucose,Whole Blood 350 mg/dL (75-99)
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
[2021-07-26] MEDS: SODIUM CHLORIDE 0.9% 1,000 ML IV SCH (13:50)
--- NOTE | 2021-07-26 14:36 | CA ---
Transthoracic Echo Report Name: Kenroy Lovelace Age: 81 Gender: M : 1940 Exam Date: 07/26/2021 12:15 Exam Location: [facility] Ht (in): 72 Wt (lb): 164 Ordering Physician: Bambi Leslie Attending/Referring Phys: Line Up Examiner Emelia Wade RDCS Procedure CPT: Indications: chf Cardiac Hx: Technical Quality: Contrast 1: Total Dose (mL): Contrast 2: Total Dose (mL): MEASUREMENTS (Male / Female) Normal Values 2D ECHO LV Diastolic Diameter PLAX 4.0 cm 4.2 - 5.9 / 3.9 - 5.3 cm LV Systolic Diameter PLAX 3.3 cm IVS Diastolic Thickness 1.2 cm 0.6 - 1.0 / 0.6 - 0.9 cm LVPW Diastolic Thickness 1.3 cm 0.6 - 1.0 / 0.6 - 0.9 cm LV Relative Wall Thickness 0.6 RV Internal Dim ED PLAX 3.2 cm LA Systolic Diameter LX 3.2 cm 3.0 - 4.0 / 2.7 - 3.8 cm LA Volume 72.6 cm??? 18 - 58 / 22 - 52 cm??? M-MODE Aortic Root Diameter MM 3.1 cm LA Systolic Diameter MM 3.7 cm LA Ao Ratio MM 1.2 MV E Point Septal Separation 0.2 cm AV Cusp Separation MM 2.3 cm DOPPLER MV Area PHT 3.3 cm??? Mitral E Point Velocity 38.9 cm/s Mitral A Point Velocity 94.4 cm/s Mitral E to A Ratio 0.4 MV Deceleration Time 231.3 ms MV E' Velocity 2.3 cm/s Mitral E to MV E' Ratio 17.0 TR Peak Velocity 238.8 cm/s TR Peak Gradient 22.8 mmHg Right Ventricular Systolic Press 26.1 mmHg FINDINGS Left Ventricle Normal left ventricular systolic function with no obvious regional wall motion abnormalities. Right Ventricle Normal right ventricular size and function. Right ventricular systolic pressure within normal limits. Right Atrium Normal right atrial size. Left Atrium Moderately increased left atrial volume. Mildly increased left atrial area. Mitral Valve Structurally normal mitral valve. Mild mitral regurgitation. Aortic Valve Trileaflet aortic valve. Tricuspid Valve Structurally normal tricuspid valve. Mild tricuspid regurgitation. Pulmonic Valve Structurally normal pulmonic valve. Pericardium Echo free space anterior to the right ventricle likely represents a fat pad. Aorta Normal size aortic root and proximal ascending aorta. CONCLUSIONS Normal LV systolic function moderate left atrial enlargement and mild mitral regurgitation and mild tricuspid regurgitation Previewed by: Dr. Sunil Shipley MD (Electronically Signed) Final Date: 26 Jul 2021 14:36
[2021-07-26 17:25] LABS: Glucose,Whole Blood 91 mg/dL (75-99)
[2021-07-26] MEDS: REPAGLINIDE 1 MG TAB PO SCH (17:31)
[2021-07-26] MEDS: ATORVASTATIN 20 MG TAB PO SCH (20:27)
[2021-07-26] MEDS: MONTELUKAST 10 MG TAB PO SCH (20:27)
[2021-07-26 20:34] LABS: Glucose,Whole Blood 143 mg/dL (75-99)
[2021-07-26] MEDS ORDERED: METOPROLOL SUCCINATE (ER) 25 MG TAB.ER.24H PO SCH (21:00)
[2021-07-26 23:07] LABS: Protein, Total 5.6 g/dL (6.2-8.2)
[2021-07-27 07:38] LABS: Glucose,Whole Blood 148 mg/dL (75-99)
[2021-07-27] MEDS: SYMBICORT 160-4.5 MCG INHALER INHALATION SCH (08:10)
--- NOTE | 2021-07-27 08:11 | P.DS ---
Providers Date of admission: 07/25/21 16:38 Expected date of discharge: 07/27/21 Attending physician: Suzanne Campos Consults: 07/25/21 16:25 Consult Physician Routine Consulting Provider: Mikala Wick Consult Reason/Comments: taryn Do you want consulting provider notified?: Yes 07/25/21 20:24 Consult Physician Routine Consulting Provider: Erik Welsh Consult Reason/Comments: low heart rate Do you want consulting provider notified?: Yes, Notify in am Primary care physician: [facility] Course: His is a pleasant 81-year-old gentleman, patient of Dr. Srinivas ramirez, has underlying history of diastolic CHF severe pulmonary hypertension, moderate to severe tricuspid regurgitation, chronic paroxysmal atrial fibrillation on an pectoralis with Nuno, hypertension hyperlipidemia, diabetes mellitus type 2, with hyperglycemia, BPH, with prior history of tobacco use. He has significant edema, all throughout, for which he is diuretics has been adjusted by our nurse practitioner Dr. Osmany Bellamy's office. Lasix was increased to 40 mg twice a day, his Zaroxolyn, there was taken 2.5 mg daily, was decreased at 2.5 mg, Monday 1 week ago. He lost a total of 30 pounds, patient complaining of increasing weakness since the past 2 weeks, headache, no appetite. He is now requiring a cane for ambulation, previous to this he was ambulatory without any assistive devices. Patient lives with the . Patient denies any nausea no vomiting or diarrhea, patient has hyperglycemia, with current A1c of 7.1. He is on Janumet not on glipizide Emergency room, as he presented with weakness discharge, creatinine was 1.37, sodium 136 he has a good urine output, without any hematuria, patient denies any dysuria nausea vomiting diarrhea, he had decreased appetite, and also was recently found to have possible chronic underlying liver disease. Needed with acute dehydration, acute kidney injury, secondary to dehydration, consult with nephrology and also to have +1 proteinuria, otherwise negative He had a heart cath, 06/08/2021, by Dr. Cadet, has mild CAD, with 20-30% LAD stenosis, with mild luminal irregularities, normal left-sided filling pressures 07/27: Patient has been seen by nephrology with recommendations to maintain IV fluids, hold diuretics and check postvoid residual. Urology can be a follow-up outpatient for right renal complex cyst. Patient has been seen by cardiology with recommendations for IV fluids, continue anticoagulant and home today. Laboratory studies have revealed protein electrophoresis is low at 5.6. Coronavirus PCR not detected. Vitamin B12 412. Urine culture is in progress. Urine culture is negative for infection showing a small amount of blood and 1+ protein. The following laboratory studies are pending: free Light chain, immunofixation, Echocardiogram reveals moderate left atrial enlargement, mild mitral regurgitation, mild tricuspid regurgitation. Patient will be discharged home today in stable condition. 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 Portal hypertension, outpatient follow-up with GI Headache, little energy fatigue, check for coronavirus symptoms 2 weeks to admission Diabetes mellitus type 2, with hyperglycemia, A1c of 7.1. History of chronic obstructive pulmonary disease Previous history of chronic tobacco dependence. Hypertension. Hyperlipidemia. Protein calorie malnutrition, mild Complex renal cyst DISCHARGE PLAN Home Greater than 35 minutes was utilized and coordinating patient's discharge. Impression and plan of care have been directed as dictated by the signing physician. Kalee Vital nurse practitioner acting as scribe for signing physician. Patient Condition at Discharge: Good Plan - Discharge Summary Discharge Rx Participant: No New Discharge Prescriptions: Continue Montelukast [Singulair] 10 mg PO HS Budesonide/Formoterol Fumarate [Symbicort 160-4.5 Mcg Inhaler] 2 puff INHALATION RT-BID Atorvastatin [Lipitor] 20 mg PO HS Apixaban [Eliquis] 5 mg PO BID #60 tab Ergocalciferol [Vitamin D2 (1250 Mcg = 74942 Iu)] 1,250 mcg PO FR Spironolactone [Aldactone] 25 mg PO DAILY Tamsulosin [Flomax] 0.4 mg PO BID Albuterol Inhaler [Ventolin Hfa Inhaler] 2 puff INHALATION RT-Q6H PRN PRN Reason: Shortness Of Breath metOLazone [Zaroxolyn] 2.5 mg PO MOWEFR #0 Metoprolol Succinate (ER) [Toprol XL] 25 mg PO HS ARIPiprazole [Abilify] 2 mg PO DAILY glipiZIDE/METFORMIN HCL [glipiZIDE/METFORMIN HCL 2.5-500 mg] 1 tab PO BID Changed Furosemide [Lasix] 40 mg PO DAILY #0 Discontinued Spironolactone 12.5 mg PO HS Discharge Medication List Atorvastatin [Lipitor] 20 mg PO HS 12/12/18 [History] Budesonide/Formoterol Fumarate [Symbicort 160-4.5 Mcg Inhaler] 2 puff INHALATION RT-BID 12/12/18 [History] Montelukast [Singulair] 10 mg PO HS 12/12/18 [History] Apixaban [Eliquis] 5 mg PO BID #60 tab 12/17/18 [Rx] ARIPiprazole [Abilify] 2 mg PO DAILY 04/25/21 [History] Albuterol Inhaler [Ventolin Hfa Inhaler] 2 puff INHALATION RT-Q6H PRN 04/25/21 [History] Ergocalciferol [Vitamin D2 (1250 Mcg = 11141 Iu)] 1,250 mcg PO FR 04/25/21 [History] Metoprolol Succinate (ER) [Toprol XL] 25 mg PO HS 04/25/21 [History] Spironolactone [Aldactone] 25 mg PO DAILY 04/25/21 [History] Tamsulosin [Flomax] 0.4 mg PO BID 04/25/21 [History] glipiZIDE/METFORMIN HCL [glipiZIDE/METFORMIN HCL 2.5-500 mg] 1 tab PO BID 07/25/21 [History] Furosemide [Lasix] 40 mg PO DAILY #0 07/27/21 [Rx] metOLazone [Zaroxolyn] 2.5 mg PO MOWEFR #0 07/27/21 [Rx] Follow up Appointment(s)/Referral(s): Poli Ceron MD [Primary Care Provider] - 1 Week Patient Instructions/Handouts: Dehydration (DC), Acute Kidney Injury (DC) Discharge Disposition: HOME SELF-CARE
[2021-07-27] MEDS: INSULIN ASPART (NovoLOG) 100 UNIT/ML VIAL SQ SCH (08:21)
[2021-07-27] MEDS: REPAGLINIDE 1 MG TAB PO SCH (08:21)
[2021-07-27] MEDS: TAMSULOSIN 0.4 MG CAP.ER.24H PO SCH (08:22)
[2021-07-27] MEDS: ARIPiprazole 2 MG TAB PO SCH (08:22)
[2021-07-27] MEDS: APIXABAN 5 MG TAB PO SCH (08:22)
[2021-07-27 08:29] VITALS: BP 146/64; PULSE 58; RESP 17; TEMP 97.7
[2021-07-27] MEDS: SODIUM CHLORIDE 0.9% 1,000 ML IV SCH (10:50)
[2021-07-27 10:59] LABS: Creatine Kinase 26 U/L (35-257)
[2021-07-27 16:42] LABS: African American GFR (CKD) 91.9 (60.0-200.0); Anion Gap 12.6 mmol/L (10.00-18.00); Blood Urea Nitrogen 32.4 mg/dL (9.0-27.0); Calcium 9.6 mg/dL (8.7-10.3); Carbon Dioxide 21.4 mmol/L (20.0-27.5); Non-African American GFR(CKD) 79.3 (60.0-200.0); Potassium 4.2 mmol/L (3.5-5.5)
[2021-07-28 13:25] LABS: Free Kappa Lt Chain Qnt, Serum 2.45 mg/dL (0.33-1.94)
--- NOTE | 2021-07-28 14:53 | P.PN ---
Subjective Pt is seen for f/u for TYE, pre renal. Doing well Plans for discharge today No urine retention. Objective - Vital Signs Vital signs: Vital Signs Temp 97.7 F 07/27/21 07:00 Pulse 58 L 07/27/21 07:00 Resp 17 07/27/21 07:00 BP 146/64 07/27/21 07:00 Pulse Ox 95 07/27/21 07:00 FiO2 Intake & Output 07/27/21 07/28/21 07/28/21 18:59 06:59 18:59 Intake Total 200 Output Total 200 Balance 0 Intake: Oral 200 Output: Urine 200 - Exam Awake, alert, oriented x3 Appears euvolemic - Labs CBC & Chem 7: 07/25/21 13:16 07/27/21 06:00 Labs: Abnormal Lab Results - Last 24 Hours (Table) 07/26/21 07/27/21 Range/Units 14:46 06:00 BUN 32.4 H (9.0-27.0) mg/dL BUN/Creatinine Ratio 36.00 H (12.00-20.00) Ratio Glucose 156 H (70-110) mg/dL Free Orange Blossom LC, Quant 2.45 H (0.33-1.94) mg/dL Assessment and Plan Assessment: 1. Acute kidney injury, prerenal, maintained on IV fluids. Patient was recently diuresed. 2. 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 Volume depletion currently receiving IV fluids 4. Right renal complex cyst noted on ultrasound done on 07/13/2021 Plan: OK for discharge. F/u with Urology post discharge for complex renal cyst.
[2021-07-30] MEDS ORDERED: ERGOCALCIFEROL 1,250 MCG (50,000 IU) CAPSULE PO SCH (09:00)
== END 2021-07-27 11:32 | disposition home or self-care (01) ==
LOC: EC 12:02 → 6NMEDSUR 16:38
PROVIDERS: ADMIT Family Medicine; ATTEND Family Medicine
DX: N17.9 Acute kidney failure, unspecified (principal); I48.0 Paroxysmal atrial fibrillation; R00.1 Bradycardia, unspecified; K76.6 Portal hypertension; I13.0 Hypertensive heart and chronic kidney disease with heart failure and stage 1 through stage 4 chronic kidney disease, or unspecified chronic kidney disease; I50.32 Chronic diastolic (congestive) heart failure; E86.1 Hypovolemia; E11.22 Type 2 diabetes mellitus with diabetic chronic kidney disease; N18.2 Chronic kidney disease, stage 2 (mild); E11.65 Type 2 diabetes mellitus with hyperglycemia; J44.9 Chronic obstructive pulmonary disease, unspecified; E44.1 Mild protein-calorie malnutrition; N28.1 Cyst of kidney, acquired; N40.0 Benign prostatic hyperplasia without lower urinary tract symptoms; I27.20 Pulmonary hypertension, unspecified; I49.3 Ventricular premature depolarization; T50.2X5A Adverse effect of carbonic-anhydrase inhibitors, benzothiadiazides and other diuretics, initial encounter; R94.39 Abnormal result of other cardiovascular function study; E78.5 Hyperlipidemia, unspecified; R51.9 Headache, unspecified; E86.0 Dehydration; Z20.822 Contact with and (suspected) exposure to COVID-19; H91.90 Unspecified hearing loss, unspecified ear; I07.1 Rheumatic tricuspid insufficiency; I25.10 Atherosclerotic heart disease of native coronary artery without angina pectoris; Z79.4 Long term (current) use of insulin; Z79.899 Other long term (current) drug therapy; Z79.01 Long term (current) use of anticoagulants; Z79.51 Long term (current) use of inhaled steroids; Z79.84 Long term (current) use of oral hypoglycemic drugs; Z87.01 Personal history of pneumonia (recurrent); Z90.49 Acquired absence of other specified parts of digestive tract; Z98.41 Cataract extraction status, right eye; Z98.42 Cataract extraction status, left eye; Z96.1 Presence of intraocular lens; Z87.891 Personal history of nicotine dependence; Z82.49 Family history of ischemic heart disease and other diseases of the circulatory system; Z82.3 Family history of stroke
CPT/HCPCS: 99285; 36415; 94640 ×3; 93005; 93306; 83880; 80053; 80048; 84443; 82607; 82550; 83605; 83735; 84484 ×2; 85025; 85610; 85730; 81001; 84165; 87086; 86334; 83883; 83036; 87635; 71046; G0378 ×3; U0003; U0005

== ENCOUNTER → 2022-02-09 | Outpatient (CLI) | payer MEDICARE ==
--- NOTE | 2022-02-09 19:22 | XR ---
EXAMINATION TYPE: XR chest 2V DATE OF EXAM: 02/09/2022 4:36 PM COMPARISON: Chest radiographs from 07/25/2021 TECHNIQUE: XR chest 2V Frontal and lateral views of the chest. CLINICAL INDICATION:Male, 82 years old with history of I50.9 HEART FAILURE; FINDINGS: Lungs/Pleura: There is no evidence of focal consolidation, or pneumothorax. Blunting of the costophr enic angles. Pulmonary vascularity: Unremarkable. Heart/mediastinum: Cardiomediastinal silhouette is unremarkable. Musculoskeletal: No acute osseous pathology. IMPRESSION: Trace bilateral pleural effusions without evidence for acute heart failure.
== END | disposition home or self-care (01) ==
LOC: RADXRMAIN 16:28
PROVIDERS: ATTEND Nurse Practitioner Family
DX: J90 Pleural effusion, not elsewhere classified (principal)
CPT/HCPCS: 71046

== ENCOUNTER 2022-03-03 13:10 | Inpatient (IN) | payer MEDICARE ==
--- NOTE | 2022-03-03 14:28 | XR ---
EXAMINATION TYPE: XR chest 2V DATE OF EXAM: 03/03/2022 COMPARISON: 02/09/2022 TECHNIQUE: PA and lateral views submitted. HISTORY: Weakness FINDINGS: Bilateral areas of consolidation and small effusion. Heart size normal. Questionable arthropathy of t he shoulders. Diffuse osteopenia. There is a new area consolidation in the left upper lobe. IMPRESSION: 1. COPD with bilateral infiltrates. New area of patchy infiltrate left upper lobe
[2022-03-03 14:39] LABS: Basophils % (A) 0 %; Eosinophils % (A) 0 %; HCT 40.8 % (39.0-53.0); Lymphocytes # (A) 0.5 k/uL (1.0-4.8); Lymphocytes % (A) 4 %; MCH 31.1 pg (25.0-35.0); MCHC 34.3 g/dL (31.0-37.0); MCV 90.7 fL (80.0-100.0); Mean Platelet Volume 8.5; Monocytes # (A) 0.6 k/uL (0-1.0); Monocytes % (A) 5 %; Neutrophils # (A) 11.2 k/uL (1.3-7.7); Neutrophils % (A) 90 %; Platelet Count 396 k/uL (150-450); RDW 12.3 % (11.5-15.5); WBC 12.5 k/uL (3.8-10.6)
[2022-03-03 14:51] LABS: Partial Thromboplastin Time 25.6 sec (22.0-30.0); Prothrombin Time 10.4 sec (9.0-12.0)
[2022-03-03 15:20] LABS: Albumin 3.5 g/dL (3.5-5.0); Magnesium 1.7 mg/dL (1.6-2.3); Phosphorus 2.7 mg/dL (2.5-4.5); Potassium 3.3 mmol/L (3.5-5.1); Total Bilirubin 0.6 mg/dL (0.2-1.3); Total Protein 6.4 g/dL (6.3-8.2)
[2022-03-03] MEDS ORDERED: SODIUM CHLORIDE 0.9% 500 ML 500 ML IV STA ×2 (17:14→18:17)
[2022-03-03] MEDS ORDERED: SODIUM CHLORIDE 0.9% 1,000 ML IV STA (18:17)
[2022-03-03] MEDS ORDERED: ASPIRIN 81 MG PO STA (18:19)
[2022-03-03] MEDS ORDERED: PANTOPRAZOLE 40 MG/10 ML VIAL IVP STA (19:03)
[2022-03-03] MEDS ORDERED: NALOXONE 0.4 MG/ML 1 ML VIAL IV PRN (20:07)
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
--- NOTE | 2022-03-03 20:59 | CT ---
EXAMINATION TYPE: CT abdomen pelvis wo con DATE OF EXAM: 03/03/2022 HISTORY: abd pain TECHNIQUE: Departmental protocol Total DLP: 586 mGycm. Automated Exposure Control for Dose Reduction was Utilized. COMPARISON: 11/05/2016 FINDINGS: LUNG BASES: There are bilateral pleural effusions, moderate on the right and mild on the left. There are bibasilar patchy infiltrates of the lung bases. Coronary calcifications noted. Mild cardiomegaly and small pericardial effusion noted. LIVER/GB: No significant abnormality is appreciated. PANCREAS: No significant abnormality is seen. SPLEEN: No significant abnormality is seen. ADRENALS: No significant abnormality is seen. KIDNEYS: No significant abnormality is seen. BOWEL: Stool volume throughout the colon is noted to be excessive, particularly in the rectosigmoid. PELVIC VISCERA: No gross abnormality seen. LYMPH NODES: No greater than 1cm abdominal or pelvic lymph nodes are appreciated. OSSEOUS STRUCTURES: No significant abnormality is seen. Limitation: Without use of IV contrast, there is limited CT sensitivity for focal visceral lesions, i ntraluminal lesions, and vascular pathology. IMPRESSION: 1. Bilateral pleural effusions, greater on the right, and bibasilar patchy infiltrates of the lung b ases. 2. Excessive pancolonic stool volume.
[2022-03-03] MEDS: AZITHROMYCIN 500 MG in SODIUM CHLORIDE 0.9% 250 ML IVPB SCH (21:17)
[2022-03-03] MEDS ORDERED: ALBUTEROL NEBULIZED 2.5 MG/3 ML INHALATION PRN (22:14)
[2022-03-03] MEDS ORDERED: POTASSIUM CHLORIDE ER 20 MEQ TAB.ER PO STA (22:15)
[2022-03-04 01:38] LABS: Appearance,Urine Clear (Clear); Bilirubin,Urine Negative (Negative); Blood,Urine Trace (Negative); Color,Urine Yellow; Glucose,Urine (UA) Negative (Negative); Hyaline Casts,Urine 8 /lpf (0-2); Ketones,Urine Negative (Negative); Leukocyte Esterase,Urine Negative (Negative); Mucus,Urine Rare /hpf; Nitrite,Urine Negative (Negative); PH, Urine 5.5 (5.0-8.0); Protein,Urine Trace (Negative); RBC,Urine 6 /hpf (0-5); Specific Gravity,Urine 1.014 (1.001-1.035); Squamous Epithelial Cell,Urine <1 /hpf (0-4); Urobilinogen,Urine <2.0 mg/dL (<2.0); WBC,Urine 1 /hpf (0-5)
[2022-03-04] MEDS: SYMBICORT 160-4.5 MCG INHALER INHALATION SCH ×2 (07:17→20:52)
[2022-03-04 08:22] LABS: Calcium 9.3 mg/dL (8.4-10.2); Potassium 3.5 mmol/L (3.5-5.1)
[2022-03-04] MEDS: ATORVASTATIN 20 MG TAB PO SCH (08:27)
[2022-03-04] MEDS: DONEPEZIL 10 MG TAB PO SCH (08:27)
[2022-03-04] MEDS: TAMSULOSIN 0.4 MG CAP.ER.24H PO SCH ×2 (08:27→20:14)
[2022-03-04] MEDS: METOPROLOL SUCCINATE (ER) 25 MG TAB.ER.24H PO SCH (08:28)
[2022-03-04] MEDS: FUROSEMIDE 40 MG TAB PO SCH (08:28)
[2022-03-04] MEDS: polyethylene glycoL 3350 17 GM POWD.PACK PO SCH (08:28)
[2022-03-04] MEDS: PANTOPRAZOLE 40 MG/10 ML VIAL IV SCH (08:28)
[2022-03-04] MEDS: metFORMIN 500 MG TAB PO SCH ×2 (08:28→20:14)
[2022-03-04] MEDS: SPIRONOLACTONE 25 MG TAB PO SCH (08:28)
[2022-03-04 09:22] LABS: Basophils % (A) 0 %; Eosinophils # (A) 0.1 k/uL (0-0.7); Eosinophils % (A) 1 %; HCT 36.9 % (39.0-53.0); HGB 12.9 gm/dL (13.0-17.5); Lymphocytes # (A) 0.9 k/uL (1.0-4.8); Lymphocytes % (A) 10 %; MCH 31.2 pg (25.0-35.0); MCHC 34.9 g/dL (31.0-37.0); MCV 89.5 fL (80.0-100.0); Mean Platelet Volume 8.7; Monocytes # (A) 0.7 k/uL (0-1.0); Monocytes % (A) 7 %; Neutrophils # (A) 7.3 k/uL (1.3-7.7); Neutrophils % (A) 80 %; Platelet Count 325 k/uL (150-450); RBC 4.13 m/uL (4.30-5.90); RDW 12.2 % (11.5-15.5); WBC 9.1 k/uL (3.8-10.6)
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
[2022-03-04] MEDS: AZITHROMYCIN 500 MG in SODIUM CHLORIDE 0.9% 250 ML IVPB SCH (19:44)
[2022-03-04 19:50] LABS: Glucose,Whole Blood 312 mg/dL (70-110)
[2022-03-04] MEDS ORDERED: DEXTROSE 50% SYRINGE 50 ML IVP PRN ×2 (19:57)
[2022-03-04] MEDS: INSULIN ASPART (NovoLOG) 100 UNIT/ML VIAL SQ SCH (20:14)
[2022-03-05 05:57] LABS: Glucose,Whole Blood 186 mg/dL (70-110)
[2022-03-05] MEDS: INSULIN ASPART (NovoLOG) 100 UNIT/ML VIAL SQ SCH ×4 (06:10→21:57)
[2022-03-05] MEDS: SYMBICORT 160-4.5 MCG INHALER INHALATION SCH ×2 (08:23→21:23)
[2022-03-05] MEDS: SPIRONOLACTONE 25 MG TAB PO SCH (10:10)
[2022-03-05] MEDS: metFORMIN 500 MG TAB PO SCH ×2 (10:10→21:57)
[2022-03-05] MEDS: FUROSEMIDE 40 MG TAB PO SCH (10:10)
[2022-03-05] MEDS: DONEPEZIL 10 MG TAB PO SCH (10:10)
[2022-03-05] MEDS: TAMSULOSIN 0.4 MG CAP.ER.24H PO SCH ×2 (10:10→21:57)
[2022-03-05] MEDS: METOPROLOL SUCCINATE (ER) 25 MG TAB.ER.24H PO SCH (10:10)
[2022-03-05] MEDS: PANTOPRAZOLE 40 MG/10 ML VIAL IV SCH (10:11)
[2022-03-05] MEDS: ATORVASTATIN 20 MG TAB PO SCH (10:11)
[2022-03-05 10:40] LABS: Basophils % (A) 0 %; Eosinophils # (A) 0.1 k/uL (0-0.7); Eosinophils % (A) 1 %; HCT 37.4 % (39.0-53.0); HGB 12.4 gm/dL (13.0-17.5); Lymphocytes # (A) 0.8 k/uL (1.0-4.8); Lymphocytes % (A) 9 %; MCH 30.9 pg (25.0-35.0); MCHC 33.3 g/dL (31.0-37.0); MCV 92.9 fL (80.0-100.0); Mean Platelet Volume 8.2; Monocytes # (A) 0.5 k/uL (0-1.0); Monocytes % (A) 6 %; Neutrophils # (A) 7.4 k/uL (1.3-7.7); Neutrophils % (A) 83 %; Platelet Count 354 k/uL (150-450); RBC 4.02 m/uL (4.30-5.90); RDW 12.4 % (11.5-15.5); WBC 8.9 k/uL (3.8-10.6)
[2022-03-05 11:01] LABS: Calcium 9.2 mg/dL (8.4-10.2); Potassium 3.8 mmol/L (3.5-5.1)
[2022-03-05 11:47] LABS: Glucose,Whole Blood 245 mg/dL (70-110)
[2022-03-05 16:53] LABS: Glucose,Whole Blood 151 mg/dL (70-110)
[2022-03-05 17:29] VITALS: BMI 21.7
--- NOTE | 2022-03-05 17:37 | P.PN ---
Subjective Progress Note Date: 03/05/22 82-year-old male with past medical history remarkable for atrial fibrillation on anticoagulation, congestive heart failure, COPD, diabetes, hypertension, dementia who presents emergency Department concerning of weakness. Patient is an increased weakness would last 2 weeks. Has also had a decrease in 15 pounds likely secondary to significant improvement in that lower extremity edema. Patient's primary care physicians have been adjusting his medications. Has generalized weakness. States he feels unsteady on his feet due to the weakness. Denies any abdominal pain. Listening constipation. Did have a one-time episode of a brown bowel movement earlier today with surrounding blood. No history of GI bleed in the past. No hematemesis, nausea, vomiting. No dysuria, hematuria. Denies chest pain, orthopnea, PND. Endorses some mild exertional dyspnea. Endorses a mildly productive cough. Denies any fevers or sick contacts. No other acute complaints at this time. Presents over concern for weakness. WBC 9.1 hemoglobin 12.9 hematocrit 36 platelet count 325,000 INR 1.0 sodium 135 potassium 3.5 BUN 59 creatinine 1.0 glucose 189 total bilirubin 0.6 AST 42 ALT 56 alkaline phosphatase 81 Objective - Vital Signs Vital signs: Vital Signs Temp 97.6 F 03/05/22 12:00 Pulse 80 03/05/22 14:00 Resp 18 03/05/22 14:00 BP 107/63 03/05/22 12:00 Pulse Ox 94 L 03/05/22 12:00 FiO2 Intake & Output 03/04/22 03/05/22 03/05/22 18:59 06:59 18:59 Intake Total 236 Balance 236 Weight 72.575 kg 72.575 kg Intake: Oral 236 Other: Voiding Method Toilet # Voids 2 - Exam HEAD: Normal with no signs of head trauma. EYES: PERRLA, EOMI, conjunctiva normal, no discharge. Pupils are 3 mm and equal bilaterally. ENT: Hearing grossly intact, normal oropharynx. Dry mucous membranes. RESPIRATORY: Clear breath sounds bilaterally. No wheezes, rales, or rhonchi. C/V: Irregular rate and rhythm. S1 and S2 auscultated, 1+ bilateral lower extremity pitting edema, peripheral pulses 2+ and intact throughout ABD: Abd is soft, nontender, nondistended EXT: Normal range of motion, no obvious deformity SKIN: No rashes or lesions observed on exposed skin. NEURO: Alert and oriented 3-4. Jaundice weakness. No focal deficits. NIH of 0. GCS of 15. - Labs CBC & Chem 7: 03/05/22 09:51 03/05/22 09:51 Labs: Abnormal Lab Results - Last 24 Hours (Table) 03/04/22 03/05/22 03/05/22 Range/Units 19:48 05:55 09:51 RBC (4.30-5.90) m/uL Hgb (13.0-17.5) gm/dL Hct (39.0-53.0) % Lymphocytes # (1.0-4.8) k/uL Sodium (137-145) mmol/L BUN (9-20) mg/dL Glucose (74-99) mg/dL POC Glucose (mg/dL) 312 H 186 H (70-110) mg/dL Hemoglobin A1c 7.8 H (0.0-6.0) % 03/05/22 03/05/22 03/05/22 Range/Units 09:51 09:51 11:46 RBC 4.02 L (4.30-5.90) m/uL Hgb 12.4 L (13.0-17.5) gm/dL Hct 37.4 L (39.0-53.0) % Lymphocytes # 0.8 L (1.0-4.8) k/uL Sodium 134 L (137-145) mmol/L BUN 40 H (9-20) mg/dL Glucose 303 H (74-99) mg/dL POC Glucose (mg/dL) 245 H (70-110) mg/dL Hemoglobin A1c (0.0-6.0) % 03/05/22 Range/Units 16:52 RBC (4.30-5.90) m/uL Hgb (13.0-17.5) gm/dL Hct (39.0-53.0) % Lymphocytes # (1.0-4.8) k/uL Sodium (137-145) mmol/L BUN (9-20) mg/dL Glucose (74-99) mg/dL POC Glucose (mg/dL) 151 H (70-110) mg/dL Hemoglobin A1c (0.0-6.0) % Microbiology - Last 24 Hours (Table) 03/03/22 18:30 Blood Culture - Preliminary Blood No Growth after 24 hours 03/03/22 18:43 Blood Culture - Preliminary Blood No Growth after 24 hours Assessment and Plan Assessment: 1. Community-acquired pneumonia; patient has been placed on azithromycin and Rocephin - We will monitor CBC, CRP and pro-calcitonin; blood cultures and sputum culture as able - Symptomatic treatment of pneumonia 2. Positive stool occult blood - Patient has been evaluated by gastroenterology - Leukocytosis and elevated shows large amount of stool burden - Gastroenterology radiating positive stool occult blood to constipation and possible associated hemorrhoids or fissure - Patient has been started on a bowel regimen - No plans for endoscopy as admission 3. Acute renal injury; slowly IV fluid hydration and we will monitor strict IRENE's, daily weights, and function and electrolytes ; avoid nephrotoxins and hypotension 4. Hypokalemia; supplemented in ED; we will monitor electrolytes closely and supplement as needed 5. Hyperlipidemia; Lipitor 20 mg daily 6. COPD/asthma Symbicort twice a day, albuterol inhaler 2 puffs 4 times a day when necessary, simulated milligrams daily 7. Hypertension; metoprolol 25 mg daily; Aldactone 25 mg daily 8. Diabetes mellitus type 2; patient takes metformin/glipizide which was increased on hold; monitor Accu-Cheks every 6 hours his symptoms and sliding scale 9. Dementia; patient uses Exelon patch
[2022-03-05] MEDS: AZITHROMYCIN 500 MG in SODIUM CHLORIDE 0.9% 250 ML IVPB SCH (17:45)
[2022-03-05] MEDS: polyethylene glycoL 3350 17 GM POWD.PACK PO SCH (17:46)
[2022-03-05 19:58] LABS: Glucose,Whole Blood 229 mg/dL (70-110)
[2022-03-06 06:04] LABS: Glucose,Whole Blood 175 mg/dL (70-110)
[2022-03-06] MEDS: INSULIN ASPART (NovoLOG) 100 UNIT/ML VIAL SQ SCH ×4 (06:45→20:47)
[2022-03-06 06:50] LABS: Basophils # (A) 0.1 k/uL (0-0.2); Basophils % (A) 1 %; Eosinophils # (A) 0.2 k/uL (0-0.7); Eosinophils % (A) 3 %; HCT 36.1 % (39.0-53.0); HGB 12.4 gm/dL (13.0-17.5); Lymphocytes # (A) 0.9 k/uL (1.0-4.8); Lymphocytes % (A) 11 %; MCH 30.9 pg (25.0-35.0); MCHC 34.3 g/dL (31.0-37.0); MCV 90.3 fL (80.0-100.0); Mean Platelet Volume 7.7; Monocytes # (A) 0.4 k/uL (0-1.0); Monocytes % (A) 5 %; Neutrophils # (A) 6.9 k/uL (1.3-7.7); Neutrophils % (A) 80 %; Platelet Count 419 k/uL (150-450); RDW 12.2 % (11.5-15.5); WBC 8.6 k/uL (3.8-10.6)
[2022-03-06 07:02] LABS: Calcium 9.2 mg/dL (8.4-10.2); Potassium 3.5 mmol/L (3.5-5.1)
[2022-03-06] MEDS: SYMBICORT 160-4.5 MCG INHALER INHALATION SCH ×2 (07:32→19:40)
[2022-03-06] MEDS ORDERED: Potassium Replacement Protocol 1 EACH MISC MISCELLANE PRN (07:55)
[2022-03-06] MEDS: TAMSULOSIN 0.4 MG CAP.ER.24H PO SCH ×2 (09:40→20:46)
[2022-03-06] MEDS: SPIRONOLACTONE 25 MG TAB PO SCH (09:41)
[2022-03-06] MEDS: FUROSEMIDE 40 MG TAB PO SCH (09:41)
[2022-03-06] MEDS: ATORVASTATIN 20 MG TAB PO SCH (09:41)
[2022-03-06] MEDS: METOPROLOL SUCCINATE (ER) 25 MG TAB.ER.24H PO SCH (09:41)
[2022-03-06] MEDS: DONEPEZIL 10 MG TAB PO SCH (09:41)
[2022-03-06] MEDS: polyethylene glycoL 3350 17 GM POWD.PACK PO SCH (09:41)
[2022-03-06] MEDS: POTASSIUM BICARBONATE/CIT AC 20 MEQ TABLET.EFF PO SCH ×2 (09:41→11:26)
[2022-03-06] MEDS: metFORMIN 500 MG TAB PO SCH ×2 (11:18→20:46)
[2022-03-06] MEDS: PANTOPRAZOLE 40 MG/10 ML VIAL IV SCH (11:26)
[2022-03-06 11:49] LABS: Glucose,Whole Blood 256 mg/dL (70-110)
--- NOTE | 2022-03-06 14:54 | P.PN ---
Subjective Progress Note Date: 03/06/22 Principal diagnosis: Community-acquired pneumonia Interpretation with RVR GI bleed Debility 82-year-old male with past medical history remarkable for atrial fibrillation on anticoagulation, congestive heart failure, COPD, diabetes, hypertension, dementia who presents emergency Department concerning of weakness. Patient is an increased weakness would last 2 weeks. Has also had a decrease in 15 pounds likely secondary to significant improvement in that lower extremity edema. Patient's primary care physicians have been adjusting his medications. Has generalized weakness. States he feels unsteady on his feet due to the weakness. Denies any abdominal pain. Listening constipation. Did have a one-time episode of a brown bowel movement earlier today with surrounding blood. No history of GI bleed in the past. No hematemesis, nausea, vomiting. No dysuria, hematuria. Denies chest pain, orthopnea, PND. Endorses some mild exertional dyspnea. Endorses a mildly productive cough. Denies any fevers or sick contacts. No other acute complaints at this time. Presents over concern for weakness. WBC 9.1 hemoglobin 12.9 hematocrit 36 platelet count 325,000 INR 1.0 sodium 135 potassium 3.5 BUN 59 creatinine 1.0 glucose 189 total bilirubin 0.6 AST 42 ALT 56 alkaline phosphatase 81 24 hour interval change 03/06/2022 Patient is seen and evaluated in room at bedside; patient's is present in the room; patient reports breathing is improved but continues to be extremely weak Vital signs reveal temperature of 97.9, pulse 71, respiration 18 and blood pressure of 93/56 with O2 saturation of 94% on room air - Patient remains on IV ceftriaxone Evaluated by GI and mild local bleed is deemed secondary to constipation and hemorrhoids; patient remains on MiraLAX and is having bowel movements; HDL colonoscopy recommended - Remains in atrial fibrillation with improved heart rate control on Toprol-XL - We will consult PT/OT to help determine discharge planning; patient can be switched to oral antibiotics and could be discharged once patient has been evaluated by PT; reports patient is to be and she is unable to care for him at home and is requesting subacute rehab Objective - Vital Signs Vital signs: Vital Signs Temp 97.4 F L 03/06/22 00:00 Pulse 86 03/06/22 04:48 Resp 20 03/06/22 04:48 BP 92/62 03/06/22 04:48 Pulse Ox 94 L 03/06/22 04:48 FiO2 Intake & Output 03/05/22 03/06/22 03/06/22 18:59 06:59 18:59 Intake Total 354 118 Output Total 200 Balance 354 -200 118 Weight 72.575 kg Intake: Oral 354 118 Output: Urine 200 Other: Voiding Method Toilet Toilet # Voids 4 # Bowel Movements 2 1 - Exam HEAD: Normal with no signs of head trauma. EYES: PERRLA, EOMI, conjunctiva normal, no discharge. Pupils are 3 mm and equal bilaterally. ENT: Hearing grossly intact, normal oropharynx. Dry mucous membranes. RESPIRATORY: Clear breath sounds bilaterally. No wheezes, rales, or rhonchi. C/V: Irregular rate and rhythm. S1 and S2 auscultated, 1+ bilateral lower extremity pitting edema, peripheral pulses 2+ and intact throughout ABD: Abd is soft, nontender, nondistended EXT: Normal range of motion, no obvious deformity SKIN: No rashes or lesions observed on exposed skin. NEURO: Alert and oriented 3-4. Jaundice weakness. No focal deficits. NIH of 0. GCS of 15. - Labs CBC & Chem 7: 03/06/22 06:35 03/06/22 06:35 Labs: Abnormal Lab Results - Last 24 Hours (Table) 03/05/22 03/05/22 03/05/22 Range/Units 09:51 09:51 09:51 RBC 4.02 L (4.30-5.90) m/uL Hgb 12.4 L (13.0-17.5) gm/dL Hct 37.4 L (39.0-53.0) % Lymphocytes # 0.8 L (1.0-4.8) k/uL Sodium 134 L (137-145) mmol/L BUN 40 H (9-20) mg/dL Glucose 303 H (74-99) mg/dL POC Glucose (mg/dL) (70-110) mg/dL Hemoglobin A1c 7.8 H (0.0-6.0) % 03/05/22 03/05/22 03/05/22 Range/Units 11:46 16:52 19:55 RBC (4.30-5.90) m/uL Hgb (13.0-17.5) gm/dL Hct (39.0-53.0) % Lymphocytes # (1.0-4.8) k/uL Sodium (137-145) mmol/L BUN (9-20) mg/dL Glucose (74-99) mg/dL POC Glucose (mg/dL) 245 H 151 H 229 H (70-110) mg/dL Hemoglobin A1c (0.0-6.0) % 03/06/22 03/06/22 03/06/22 Range/Units 06:02 06:35 06:35 RBC 4.00 L (4.30-5.90) m/uL Hgb 12.4 L (13.0-17.5) gm/dL Hct 36.1 L (39.0-53.0) % Lymphocytes # 0.9 L (1.0-4.8) k/uL Sodium 135 L (137-145) mmol/L BUN 32 H (9-20) mg/dL Glucose 174 H (74-99) mg/dL POC Glucose (mg/dL) 175 H (70-110) mg/dL Hemoglobin A1c (0.0-6.0) % Microbiology - Last 24 Hours (Table) 03/03/22 18:43 Blood Culture - Preliminary Blood No Growth after 48 hours 03/03/22 18:30 Blood Culture - Preliminary Blood No Growth after 48 hours Assessment and Plan Assessment: 1. Community-acquired pneumonia; patient has been placed on azithromycin and Rocephin - We will monitor CBC, CRP and pro-calcitonin; blood cultures and sputum culture as able - Symptomatic treatment of pneumonia 2. Positive stool occult blood - Patient has been evaluated by gastroenterology - Leukocytosis and elevated shows large amount of stool burden - Gastroenterology radiating positive stool occult blood to constipation and possible associated hemorrhoids or fissure - Patient has been started on a bowel regimen - No plans for endoscopy as admission 3. Acute renal injury; slowly IV fluid hydration and we will monitor strict IRENE's, daily weights, and function and electrolytes ; avoid nephrotoxins and hypotension 4. Hypokalemia; supplemented in ED; we will monitor electrolytes closely and supplement as needed 5. Hyperlipidemia; Lipitor 20 mg daily 6. COPD/asthma Symbicort twice a day, albuterol inhaler 2 puffs 4 times a day when necessary, simulated milligrams daily 7. Hypertension; metoprolol 25 mg daily; Aldactone 25 mg daily 8. Diabetes mellitus type 2; patient takes metformin/glipizide which was increased on hold; monitor Accu-Cheks every 6 hours his symptoms and sliding scale 9. Dementia; patient uses Exelon patch
[2022-03-06 16:38] LABS: Glucose,Whole Blood 176 mg/dL (70-110)
[2022-03-06 20:10] LABS: Glucose,Whole Blood 217 mg/dL (70-110)
[2022-03-06] MEDS: MIRTAZAPINE 15 MG TAB PO SCH (20:46)
[2022-03-06] MEDS: APIXABAN 5 MG TAB PO SCH (20:47)
[2022-03-07 06:17] LABS: Glucose,Whole Blood 167 mg/dL (70-110)
[2022-03-07] MEDS: INSULIN ASPART (NovoLOG) 100 UNIT/ML VIAL SQ SCH ×4 (06:28→20:42)
[2022-03-07 06:35] LABS: Basophils % (A) 1 %; Eosinophils # (A) 0.2 k/uL (0-0.7); Eosinophils % (A) 2 %; HCT 34.8 % (39.0-53.0); HGB 11.6 gm/dL (13.0-17.5); Lymphocytes # (A) 0.8 k/uL (1.0-4.8); Lymphocytes % (A) 10 %; MCH 30.3 pg (25.0-35.0); MCHC 33.4 g/dL (31.0-37.0); MCV 90.8 fL (80.0-100.0); Mean Platelet Volume 7.9; Monocytes # (A) 0.4 k/uL (0-1.0); Monocytes % (A) 5 %; Neutrophils # (A) 6.3 k/uL (1.3-7.7); Neutrophils % (A) 81 %; Platelet Count 360 k/uL (150-450); RBC 3.83 m/uL (4.30-5.90); RDW 12.5 % (11.5-15.5); WBC 7.8 k/uL (3.8-10.6)
[2022-03-07 07:41] LABS: Potassium 4.3 mmol/L (3.5-5.1)
[2022-03-07] MEDS: METOPROLOL SUCCINATE (ER) 25 MG TAB.ER.24H PO SCH (08:34)
[2022-03-07] MEDS: TAMSULOSIN 0.4 MG CAP.ER.24H PO SCH ×2 (08:34→20:42)
[2022-03-07] MEDS: DONEPEZIL 10 MG TAB PO SCH (08:34)
[2022-03-07] MEDS: metOLazone 5 MG TAB PO SCH (08:34)
[2022-03-07] MEDS: polyethylene glycoL 3350 17 GM POWD.PACK PO SCH (08:34)
[2022-03-07] MEDS: APIXABAN 5 MG TAB PO SCH ×2 (08:34→20:42)
[2022-03-07] MEDS: FUROSEMIDE 40 MG TAB PO SCH (08:34)
[2022-03-07] MEDS: SPIRONOLACTONE 25 MG TAB PO SCH (08:34)
[2022-03-07] MEDS: ATORVASTATIN 20 MG TAB PO SCH (08:34)
[2022-03-07] MEDS: PANTOPRAZOLE 40 MG/10 ML VIAL IV SCH (08:34)
[2022-03-07] MEDS: metFORMIN 500 MG TAB PO SCH ×2 (08:34→20:42)
[2022-03-07] MEDS: MONTELUKAST 10 MG TAB PO SCH (08:34)
--- NOTE | 2022-03-07 08:45 | XR ---
EXAMINATION TYPE: XR chest 1V DATE OF EXAM: 03/07/2022 COMPARISON: 03/03/2022 HISTORY: Shortness of breath TECHNIQUE: Single frontal view of the chest is obtained. FINDINGS: Bilateral lower lobe consolidation and small effusion. Chronic rib deformities. No pneumot horax. Arthropathy of the shoulders with diffuse osteopenia. Coarsened interstitium. Patchy infiltrat e left upper lobe noted. IMPRESSION: 1. Stable bilateral infiltrates and small effusion. Correlate for underlying COPD. 2. Patchy left upper lobe infiltrate persists consider follow-up CT is
[2022-03-07] MEDS: SYMBICORT 160-4.5 MCG INHALER INHALATION SCH ×2 (08:56→20:10)
--- NOTE | 2022-03-07 10:41 | P.PN ---
Subjective From the records 82-year-old male with past medical history remarkable for atrial fibrillation on anticoagulation, congestive heart failure, COPD, diabetes, hypertension, dementia who presents emergency Department concerning of weakness. Patient is an increased weakness would last 2 weeks. Has also had a decrease in 15 pounds likely secondary to significant improvement in that lower extremity edema. Patient's primary care physicians have been adjusting his medications. Has generalized weakness. States he feels unsteady on his feet due to the weakness. Denies any abdominal pain. Listening constipation. Did have a one-time episode of a brown bowel movement earlier today with surrounding blood. No history of GI bleed in the past. No hematemesis, nausea, vomiting. No dysuria, hematuria. Denies chest pain, orthopnea, PND. Endorses some mild exertional dyspnea. Endorses a mildly productive cough. Denies any fevers or sick con tacts. No other acute complaints at this time. Presents over concern for weakness. WBC 9.1 hemoglobin 12.9 hematocrit 36 platelet count 325,000 INR 1.0 sodium 135 potassium 3.5 BUN 59 creatinine 1.0 glucose 189 total bilirubin 0.6 AST 42 ALT 56 alkaline phosphatase 81 24 hour interval change 03/06/2022 Patient is seen and evaluated in room at bedside; patient's is present in the room; patient reports breathing is improved but continues to be extremely weak Vital signs reveal temperature of 97.9, pulse 71, respiration 18 and blood pressure of 93/56 with O2 saturation of 94% on room air - Patient remains on IV ceftriaxone Evaluated by GI and mild local bleed is deemed secondary to constipation and hemorrhoids; patient remains on MiraLAX and is having bowel movements; HDL colonoscopy recommended - Remains in atrial fibrillation with improved heart rate control on Toprol-XL - We will consult PT/OT to help determine discharge planning; patient can be switched to oral antibiotics and could be discharged once patient has been evaluated by PT; reports patient is to be and she is unable to care for him at home and is requesting subacute rehab 03/07/2022 Patient is looks very tired, he is awake and answers questions appropriately but slow but also he looks confused although he knows he is in [facility] in [place] on he thought this [address] and he could not tell the name of the president. He does not seem to choking however he is mildly tachypneic at bedside and states that he is been more confused on the last month he wants to see Dr. Al who increased his dementia medication However he has poor appetite and poor oral intake over the last 2 weeks and he lost some weight. Patient states that he has been having coughing and make an a lot of phlegm and he's been more confused lately. No other symptoms, no other GI or urinary symptoms. Patient looks calm. He is hemodynamically stable and saturating 93% on room air. No leukocytosis,, no fever Is currently on ceftriaxone and Eliquis which is a home dose His positive occult blood in the stool is secondary to hemorrhoids/fissure rather than GI bleed, hemoglobin is monitored by GI service signed off. No evidence of active GI bleed. Patient denies any chest pain. Repeat chest x-ray showing bilateral and basal infiltrates is a stable and left upper lobe infiltrates with COPD We will consult pulmonary service Review of systems CONSTITUTIONAL: No fever, no malaise, no fatigue. HEENT: No recent visual problems or hearing problems. Denied any sore throat. CARDIOVASCULAR: No orthopnea, PND, no palpitations, no syncope. GASTROINTESTINAL: No diarrhea, no nausea, no vomiting, no abdominal pain. Normoactive bowel sounds. NEUROLOGICAL: No headaches, no weakness, no numbness. HEMATOLOGICAL: Denies any bleeding or petechiae. Active Medications Generic Name Dose Route Start Last Admin Trade Name Freq PRN Reason Stop Dose Admin Albuterol Sulfate 2.5 mg 03/03/22 22:14 Albuterol Nebulized 2.5 Mg/3 Ml INHALATION RT-Q6H PRN Shortness Of Breath Apixaban 5 mg 03/06/22 21:00 03/07/22 08:34 Apixaban 5 Mg Tab PO 5 mg BID MICHA Administration Protocol Atorvastatin Calcium 20 mg 03/04/22 09:00 03/07/22 08:34 Atorvastatin 20 Mg Tab PO 20 mg DAILY MICHA Administration Budesonide/Formoterol Fumarate 2 puff 03/04/22 08:00 03/07/22 08:56 Symbicort 160-4.5 Mcg Inhaler INHALATION 2 puff RT-BID MICHA Administration Dextrose/Water 25 ml 03/04/22 19:57 Dextrose 50% Syringe 50 Ml IVP PER PROTOCOL PRN Hypoglycemia Protocol Dextrose/Water 50 ml 03/04/22 19:57 Dextrose 50% Syringe 50 Ml IVP PER PROTOCOL PRN Hypoglycemia Protocol Donepezil HCl 10 mg 03/04/22 09:00 03/07/22 08:34 Donepezil 10 Mg Tab PO 10 mg DAILY MICHA Administration Ergocalciferol 1,250 mcg 03/11/22 09:00 Ergocalciferol 1,250 Mcg (50,000 Iu) Capsule PO FR MICHA Furosemide 40 mg 03/04/22 09:00 03/07/22 08:34 Furosemide 40 Mg Tab PO 40 mg DAILY MICHA Administration Glipizide 2.5 mg 03/04/22 09:00 03/07/22 08:34 Glipizide 2.5 Mg Tab PO 2.5 mg BID MICHA Administration Ceftriaxone Sodium 2 gm/ 50 mls @ 100 mls/hr 03/03/22 18:30 03/06/22 17:48 Sodium Chloride IVPB 100 mls/hr Q24H MICHA Administration Protocol Insulin Aspart 0 unit 03/04/22 21:00 03/07/22 06:28 Insulin Aspart (Novolog) 100 Unit/Ml Vial SQ 2 unit ACHS MICHA Administration Protocol Metformin HCl 500 mg 03/04/22 09:00 03/07/22 08:34 Metformin 500 Mg Tab PO 500 mg BID MICHA Administration Metolazone 5 mg 03/07/22 09:00 03/07/22 08:34 Metolazone 5 Mg Tab PO 5 mg MoWe@0900 MICHA Administration Metoprolol Succinate 25 mg 03/04/22 09:00 03/07/22 08:34 Metoprolol Succinate (Er) 25 Mg Tab.Er.24h PO 25 mg DAILY MICHA Administration Mirtazapine 15 mg 03/06/22 21:00 03/06/22 20:46 Mirtazapine 15 Mg Tab PO 15 mg HS MICHA Administration Miscellaneous Information 1 each 03/06/22 07:55 Potassium Replacement Protocol 1 Each Misc MISCELLANE DAILY PRN Per Protocol Protocol Montelukast Sodium 10 mg 03/07/22 09:00 03/07/22 08:34 Montelukast 10 Mg Tab PO 10 mg DAILY MICHA Administration Naloxone HCl 0.2 mg 03/03/22 20:07 Naloxone 0.4 Mg/Ml 1 Ml Vial IV Q2M PRN Opioid Reversal Pantoprazole Sodium 40 mg 03/04/22 09:00 03/07/22 08:34 Pantoprazole 40 Mg/10 Ml Vial IV 40 mg DAILY MICHA Administration Polyethylene Glycol 17 gm 03/04/22 09:00 03/07/22 08:34 Polyethylene Glycol 3350 17 Gm Powd.Pack PO 17 gm DAILY MICHA Administration Spironolactone 25 mg 03/04/22 09:00 03/07/22 08:34 Spironolactone 25 Mg Tab PO 25 mg DAILY MICHA Administration Tamsulosin HCl 0.4 mg 03/04/22 09:00 03/07/22 08:34 Tamsulosin 0.4 Mg Cap.Er.24h PO 0.4 mg BID MICHA Administration Objective - Vital Signs Vital signs: Vital Signs Temp 97.9 F 03/07/22 08:27 Pulse 71 03/07/22 08:27 Resp 18 03/07/22 08:27 BP 111/64 03/07/22 08:27 Pulse Ox 93 L 03/07/22 08:27 FiO2 Intake & Output 03/06/22 03/07/22 03/07/22 18:59 06:59 18:59 Intake Total 354 118 Balance 354 118 Intake: Oral 354 118 Other: Voiding Method Toilet Toilet Bedside Commode Urinal Urinal Urinal Diaper # Voids 1 1 # Bowel Movements 1 1 - Exam -GENERAL: The patient is alert and oriented x1 to place only , not in any acute distress. Generally weak HEENT: Pupils are round and equally reacting to light. EOMI. No scleral icterus. No conjunctival pallor. Normocephalic, atraumatic. No pharyngeal erythema. No thyromegaly. CARDIOVASCULAR: S1 and S2 present. No murmurs, rubs, or gallops. -PULMONARY: Chest is clear to auscultation, no wheezing or crackles. Mildly tachypneic ABDOMEN: Soft, nontender, nondistended, normoactive bowel sounds. No palpable organomegaly. MUSCULOSKELETAL: No joint swelling or deformity. EXTREMITIES: No cyanosis, clubbing, or pedal edema. NEUROLOGICAL: Gross neurological examination did not reveal any focal deficits. SKIN: No rashes. no petechiae. - Labs CBC & Chem 7: 03/07/22 06:17 03/07/22 06:17 Labs: Abnormal Lab Results - Last 24 Hours (Table) 03/06/22 03/06/22 03/06/22 Range/Units 11:42 16:37 20:08 RBC (4.30-5.90) m/uL Hgb (13.0-17.5) gm/dL Hct (39.0-53.0) % Lymphocytes # (1.0-4.8) k/uL Sodium (137-145) mmol/L BUN (9-20) mg/dL Glucose (74-99) mg/dL POC Glucose (mg/dL) 256 H 176 H 217 H (70-110) mg/dL 03/07/22 03/07/22 03/07/22 Range/Units 06:16 06:17 06:17 RBC 3.83 L (4.30-5.90) m/uL Hgb 11.6 L (13.0-17.5) gm/dL Hct 34.8 L (39.0-53.0) % Lymphocytes # 0.8 L (1.0-4.8) k/uL Sodium 134 L (137-145) mmol/L BUN 25 H (9-20) mg/dL Glucose 179 H (74-99) mg/dL POC Glucose (mg/dL) 167 H (70-110) mg/dL Microbiology - Last 24 Hours (Table) 03/03/22 18:43 Blood Culture - Preliminary Blood No Growth after 72 hours 03/03/22 18:30 Blood Culture - Preliminary Blood No Growth after 72 hours Assessment and Plan Assessment: 1. Bilateral basal infiltrates and left upper infiltrates, possible Community- acquired pneumonia; patient has been placed on Rocephin - We will monitor CBC, CRP and pro-calcitonin; blood cultures and sputum culture as able - Pulmonary team consult 2. Positive stool occult blood - Patient has been evaluated by gastroenterology both signed off the case - large amount of stool burden - Gastroenterology radiating positive stool occult blood to constipation and possible associated hemorrhoids or fissure - Patient has been started on a bowel regimen - No plans for endoscopy as admission 3. Acute renal injury; slowly IV fluid hydration and we will monitor strict IRENE's, daily weights, and function and electrolytes ; avoid nephrotoxins and hypotension 4. Hypokalemia; supplemented in ED; we will monitor electrolytes closely and supplement as needed 5. Hyperlipidemia; Lipitor 20 mg daily 6. COPD/asthma Symbicort twice a day, albuterol inhaler 2 puffs 4 times a day when necessary, simulated milligrams daily 7. Hypertension; metoprolol 25 mg daily; Aldactone 25 mg daily 8. Diabetes mellitus type 2; patient takes metformin/glipizide which was increased on hold; monitor Accu-Cheks every 6 hours his symptoms and sliding scale 9. Dementia; patient uses Exelon patch
--- NOTE | 2022-03-07 11:10 | CA ---
Transthoracic Echo Report Name: Kenroy Lovelace Age: 82 Gender: M : 1940 Exam Date: 03/07/2022 09:27 Exam Location: [facility] Ht (in): 72 Wt (lb): 160 Ordering Physician: Tomi Yee MD Attending/Referring Phys: Maintenance Advisor Emelia Wade RDCS Procedure CPT: Indications: chf Cardiac Hx: Technical Quality: Contrast 1: Total Dose (mL): Contrast 2: Total Dose (mL): MEASUREMENTS (Male / Female) Normal Values 2D ECHO LV Diastolic Diameter PLAX 3.6 cm 4.2 - 5.9 / 3.9 - 5.3 cm LV Systolic Diameter PLAX 2.7 cm IVS Diastolic Thickness 1.1 cm 0.6 - 1.0 / 0.6 - 0.9 cm LVPW Diastolic Thickness 1.5 cm 0.6 - 1.0 / 0.6 - 0.9 cm LV Relative Wall Thickness 0.7 RV Internal Dim ED PLAX 3.8 cm M-MODE Aortic Root Diameter MM 2.9 cm MV E Point Septal Separation 0.8 cm DOPPLER MV Area PHT 3.2 cm??? Mitral E Point Velocity 58.3 cm/s Mitral A Point Velocity 94.8 cm/s Mitral E to A Ratio 0.6 MV Deceleration Time 239.3 ms MV E' Velocity 4.9 cm/s Mitral E to MV E' Ratio 11.8 TR Peak Velocity 187.7 cm/s TR Peak Gradient 14.1 mmHg Right Ventricular Systolic Press 19.1 mmHg FINDINGS Left Ventricle Normal left ventricular size, wall thickness, systolic function with no obvious regional wall motion abnormalities. Left ventricular ejection fraction is estimated at 55%. Right Ventricle The right ventricle is normal in size and function. Right ventricular systolic pressure within normal limits. Right Atrium The right atrium is normal in size. Left Atrium The left atrium is normal in size. Mitral Valve Structurally normal mitral valve without significant stenosis or prolapse. There is mild mitral regurgitation. Aortic Valve Structurally normal aortic valve without significant sclerosis or stenosis. There is no aortic regurgitation. Tricuspid Valve Structurally normal tricuspid valve without significant stenosis. Pulmonary artery systolic pressure is normal. Pulmonic Valve Structurally normal pulmonic valve without significant stenosis. There is no pulmonic regurgitation. Pericardium Normal pericardium without effusion. Aorta Normal aortic root dimension. CONCLUSIONS Normal LV size and systolic function. There is aortic valve sclerosis without stenosis. There is mild mitral annular calcification. Mild mitral and tricuspid insufficiency. No significant pulmonary hypertension Previewed by: Dr. Susan Miranad MD (Electronically Signed) Final Date: 07 March 2022 11:09
[2022-03-07 11:28] LABS: Glucose,Whole Blood 284 mg/dL (70-110)
--- NOTE | 2022-03-07 13:32 | XR ---
EXAMINATION TYPE: XR knee limited RT DATE OF EXAM: 03/07/2022 COMPARISON: NONE HISTORY: Pain TECHNIQUE: Two views are submitted. FINDINGS: Vascular calcifications are noted. There is chondrocalcinosis and narrowing of patellofemoral joint a nd medial margin of the knee joint. Spurring along the upper margin,. There is a small cyst or bursal fluid collection. Osseous structures are intact. No acute fracture seen. IMPRESSION: 1. Arthropathy in a pattern suggestive of osteoarthritis or depositional arthropathy. Small suprapate llar bursal fluid collection.
--- NOTE | 2022-03-07 14:06 | CDI ---
Documentation Clarification Form Date: 03/07/2022 1:40:32 PM From: Ashley Rothman RN CDDS Admit Date: 03/03/2022 8:07:00 PM Patient Name: Kenroy Lovelace Visit Number: [id number] Discharge Date: ATTENTION: The Clinical Documentation Specialists (CDI) and [facility] Coding Staff appreciate your assistance in clarifying documentation. Please respond to the clarification below the line at the bottom and electronically sign. The CDI & [facility] Coding staff will review the response and follow-up if needed. Please note: Queries are made part of the Legal Health Record. If you have any questions, please contact the author of this message via ITS. Dr. Kam E Sheet Your patient has the documented diagnosis of unspecified CHF 03/04, H&P. Additional information regarding the type, acuity of CHF is requested. History/Risk Factors: 82-year-old male presents to the ED with weakness and feels unsteady on his feet due to weakness. Patient has mild exertional dyspnea and mildly productive cough. Medical History: Atrial fibrillation; Heart failure, DM, Hearing disorder and HTN. Clinical Indicators: VS/Pulse OX: 03/03 B/P 109/73; HR 68; Temp 97.8 F Oral; RR 16; SpO2 95% ra BNP:03/03 2540 Echocardiogram Results: EF 55% Normal LV size and systolic function. There is aortic valve sclerosis without stenosis. There is mild mitral annular calcification. Mild mitral and tricuspid insufficiency. No significant pulmonary hypertension. Chest X Ray: 03/03 COPD with bilateral infiltrates. New area of patchy infiltrate left upper lobe. Treatment: 03/04 Lasix 40mg PO Daily; 03/04 Toprol XL 25mg PO Daily; 03/04 Aldactone 25mg PO Daily. In your professional opinion, can you please clarify the acuity and type of CHF if known? [ ] Chronic Diastolic Heart Failure (preserved EF) [ ] Other, please specify [ ] Unable to determine (Template Last Revised: March 2020) Chronic Diastolic Heart Failure MTDD
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
[2022-03-07 16:40] LABS: Glucose,Whole Blood 163 mg/dL (70-110)
[2022-03-07] MEDS: traMADol 50 MG TAB PO PRN (17:32)
[2022-03-07 20:08] LABS: Glucose,Whole Blood 215 mg/dL (70-110)
[2022-03-07] MEDS: MIRTAZAPINE 15 MG TAB PO SCH (20:42)
[2022-03-08 05:59] LABS: Glucose,Whole Blood 177 mg/dL (70-110)
[2022-03-08] MEDS: INSULIN ASPART (NovoLOG) 100 UNIT/ML VIAL SQ SCH ×4 (06:02→21:11)
[2022-03-08] MEDS: SYMBICORT 160-4.5 MCG INHALER INHALATION SCH ×2 (07:19→20:02)
[2022-03-08 08:05] LABS: Basophils # (A) 0.1 k/uL (0-0.2); Basophils % (A) 1 %; Eosinophils # (A) 0.1 k/uL (0-0.7); Eosinophils % (A) 1 %; HCT 36.3 % (39.0-53.0); HGB 12.1 gm/dL (13.0-17.5); Lymphocytes # (A) 0.7 k/uL (1.0-4.8); Lymphocytes % (A) 7 %; MCH 30.4 pg (25.0-35.0); MCHC 33.4 g/dL (31.0-37.0); Mean Platelet Volume 8.7; Monocytes # (A) 0.4 k/uL (0-1.0); Monocytes % (A) 4 %; Neutrophils # (A) 8.9 k/uL (1.3-7.7); Neutrophils % (A) 87 %; Platelet Count 415 k/uL (150-450); RBC 3.99 m/uL (4.30-5.90); RDW 12.8 % (11.5-15.5); WBC 10.3 k/uL (3.8-10.6)
[2022-03-08 08:11] LABS: Calcium 9.3 mg/dL (8.4-10.2); Potassium 4.6 mmol/L (3.5-5.1)
[2022-03-08] MEDS: traMADol 50 MG TAB PO PRN (08:19)
[2022-03-08] MEDS: MONTELUKAST 10 MG TAB PO SCH (08:20)
[2022-03-08] MEDS: polyethylene glycoL 3350 17 GM POWD.PACK PO SCH (08:20)
[2022-03-08] MEDS: FUROSEMIDE 40 MG TAB PO SCH (08:20)
[2022-03-08] MEDS: TAMSULOSIN 0.4 MG CAP.ER.24H PO SCH ×2 (08:20→21:12)
[2022-03-08] MEDS: SPIRONOLACTONE 25 MG TAB PO SCH (08:20)
[2022-03-08] MEDS: DONEPEZIL 10 MG TAB PO SCH (08:20)
[2022-03-08] MEDS: APIXABAN 5 MG TAB PO SCH ×2 (08:20→21:11)
[2022-03-08] MEDS: METOPROLOL SUCCINATE (ER) 25 MG TAB.ER.24H PO SCH (08:20)
[2022-03-08] MEDS: metFORMIN 500 MG TAB PO SCH ×2 (08:20→21:11)
[2022-03-08] MEDS: PANTOPRAZOLE 40 MG/10 ML VIAL IV SCH (08:20)
[2022-03-08] MEDS: ATORVASTATIN 20 MG TAB PO SCH (08:20)
--- NOTE | 2022-03-08 10:48 | P.PN ---
Subjective From the records 82-year-old male with past medical history remarkable for atrial fibrillation on anticoagulation, congestive heart failure, COPD, diabetes, hypertension, dementia who presents emergency Department concerning of weakness. Patient is an increased weakness would last 2 weeks. Has also had a decrease in 15 pounds likely secondary to significant improvement in that lower extremity edema. Patient's primary care physicians have been adjusting his medications. Has generalized weakness. States he feels unsteady on his feet due to the weakness. Denies any abdominal pain. Listening constipation. Did have a one-time episode of a brown bowel movement earlier today with surrounding blood. No history of GI bleed in the past. No hematemesis, nausea, vomiting. No dysuria, hematuria. Denies chest pain, orthopnea, PND. Endorses some mild exertional dyspnea. Endorses a mildly productive cough. Denies any fevers or sick con tacts. No other acute complaints at this time. Presents over concern for weakness. WBC 9.1 hemoglobin 12.9 hematocrit 36 platelet count 325,000 INR 1.0 sodium 135 potassium 3.5 BUN 59 creatinine 1.0 glucose 189 total bilirubin 0.6 AST 42 ALT 56 alkaline phosphatase 81 24 hour interval change 03/06/2022 Patient is seen and evaluated in room at bedside; patient's is present in the room; patient reports breathing is improved but continues to be extremely weak Vital signs reveal temperature of 97.9, pulse 71, respiration 18 and blood pressure of 93/56 with O2 saturation of 94% on room air - Patient remains on IV ceftriaxone Evaluated by GI and mild local bleed is deemed secondary to constipation and hemorrhoids; patient remains on MiraLAX and is having bowel movements; HDL colonoscopy recommended - Remains in atrial fibrillation with improved heart rate control on Toprol-XL - We will consult PT/OT to help determine discharge planning; patient can be switched to oral antibiotics and could be discharged once patient has been evaluated by PT; reports patient is to be and she is unable to care for him at home and is requesting subacute rehab 03/07/2022 Patient is looks very tired, he is awake and answers questions appropriately but slow but also he looks confused although he knows he is in [facility] in [place] on he thought this 2062 and he could not tell the name of the president. He does not seem to choking however he is mildly tachypneic at bedside and states that he is been more confused on the last month he wants to see Dr. Al who increased his dementia medication However he has poor appetite and poor oral intake over the last 2 weeks and he lost some weight. Patient states that he has been having coughing and make an a lot of phlegm and he's been more confused lately. No other symptoms, no other GI or urinary symptoms. Patient looks calm. He is hemodynamically stable and saturating 93% on room air. No leukocytosis,, no fever Is currently on ceftriaxone and Eliquis which is a home dose His positive occult blood in the stool is secondary to hemorrhoids/fissure rather than GI bleed, hemoglobin is monitored by GI service signed off. No evidence of active GI bleed. Patient denies any chest pain. Repeat chest x-ray showing bilateral and basal infiltrates is a stable and left upper lobe infiltrates with COPD We will consult pulmonary service 03/08/2022 Patient today the proximal even better, he sitting up in bed, he is eating his meal and he looks has good appetite. His mentation is even better than yesterday, he knows he is in [facility] and he can tell the year 2022 however he thought the president's Yong, he has some memory problems most likely related to worsening dementia as per who saw his neurologist one month ago for worsening dementia. Patient with no chest pain or dyspnea. He has mildly elevated troponin on admission, however it's normalized. Echocardiogram showing normal ejection fraction of 55% with no hypokinesia. Patient had cardiac cath 06/08/2021 s howing mild CAD. Patient mainly complain is from right knee and swelling, which I think it is the main problem for the patient regarding and cardiopulmonary illness which looks his stable currently. Right knee x-ray showing arthropathy suggestive of osteoarthritis or positional arthropathy. With a small suprapatellar bursal fluid collection. Orthopedic team were consulted yesterday. And will follow up with the recommendation today once we see him. We will check uric acid tomorrow. Patient with no leukocytosis or fever to suggest infection currently. Pending orthopedic evaluation as above. Objective - Vital Signs Vital signs: Vital Signs Temp 97.5 F L 03/08/22 08:08 Pulse 76 03/08/22 08:08 Resp 20 03/08/22 08:08 BP 113/70 03/08/22 08:08 Pulse Ox 93 L 03/08/22 08:08 FiO2 Intake & Output 03/07/22 03/08/22 03/08/22 18:59 06:59 18:59 Intake Total 236 Output Total 225 Balance 11 Intake: Oral 236 Output: Urine 225 Other: Voiding Method Bedside Commode Bedside Commode Bedside Commode Urinal Urinal Urinal Diaper Diaper Diaper # Voids 1 1 # Bowel Movements 1 - Exam -GENERAL: The patient is alert and oriented x1 to place only , not in any acute distress. Generally weak HEENT: Pupils are round and equally reacting to light. EOMI. No scleral icterus. No conjunctival pallor. Normocephalic, atraumatic. No pharyngeal erythema. No thyromegaly. CARDIOVASCULAR: S1 and S2 present. No murmurs, rubs, or gallops. -PULMONARY: Chest is clear to auscultation, no wheezing or crackles. Mildly tachypneic ABDOMEN: Soft, nontender, nondistended, normoactive bowel sounds. No palpable organomegaly. -MUSCULOSKELETAL: No joint swelling or deformity. Right knee swelling especially on the upper part with increased warmth but no redness, tender with some restriction of movement EXTREMITIES: No cyanosis, clubbing, or pedal edema. NEUROLOGICAL: Gross neurological examination did not reveal any focal deficits. SKIN: No rashes. no petechiae. - Labs CBC & Chem 7: 03/08/22 07:08 03/08/22 07:08 Labs: Abnormal Lab Results - Last 24 Hours (Table) 03/07/22 03/07/22 03/07/22 Range/Units 10:46 11:27 16:38 RBC (4.30-5.90) m/uL Hgb (13.0-17.5) gm/dL Hct (39.0-53.0) % Neutrophils # (1.3-7.7) k/uL Lymphocytes # (1.0-4.8) k/uL Sodium (137-145) mmol/L Glucose (74-99) mg/dL POC Glucose (mg/dL) 284 H 163 H (70-110) mg/dL Procalcitonin 0.17 H (0.02-0.09) ng/mL 03/07/22 03/08/22 03/08/22 Range/Units 20:07 05:57 07:08 RBC 3.99 L (4.30-5.90) m/uL Hgb 12.1 L (13.0-17.5) gm/dL Hct 36.3 L (39.0-53.0) % Neutrophils # 8.9 H (1.3-7.7) k/uL Lymphocytes # 0.7 L (1.0-4.8) k/uL Sodium (137-145) mmol/L Glucose (74-99) mg/dL POC Glucose (mg/dL) 215 H 177 H (70-110) mg/dL Procalcitonin (0.02-0.09) ng/mL 03/08/22 Range/Units 07:08 RBC (4.30-5.90) m/uL Hgb (13.0-17.5) gm/dL Hct (39.0-53.0) % Neutrophils # (1.3-7.7) k/uL Lymphocytes # (1.0-4.8) k/uL Sodium 134 L (137-145) mmol/L Glucose 221 H (74-99) mg/dL POC Glucose (mg/dL) (70-110) mg/dL Procalcitonin (0.02-0.09) ng/mL Microbiology - Last 24 Hours (Table) 03/03/22 18:43 Blood Culture - Preliminary Blood No Growth after 96 hours 03/03/22 18:30 Blood Culture - Preliminary Blood No Growth after 96 hours Assessment and Plan Assessment: 1. Bilateral basal infiltrates and left upper infiltrates, possible Community- acquired pneumonia; patient has been placed on Rocephin - Pulmonary team consult 2. Right knee arthroplasty, check uric acid, follow-up with orthopedic consult was ordered. Pain management, short course of Motrin 3. Acute renal injury; resolved 4. Positive stool occult blood - Patient has been evaluated by gastroenterology both signed off the case - large amount of stool burden - Gastroenterology radiating positive stool occult blood to constipation and possible associated hemorrhoids or fissure - Patient has been started on a bowel regimen - No plans for endoscopy as admission 5. Hyperlipidemia; Lipitor 20 mg daily 6. COPD/asthma Symbicort twice a day, albuterol inhaler 2 puffs 4 times a day when necessary, simulated milligrams daily 7. Hypertension; metoprolol 25 mg daily; Aldactone 25 mg daily 8. Diabetes mellitus type 2; patient takes metformin/glipizide which was increased on hold; monitor Accu-Cheks every 6 hours his symptoms and sliding scale 9. Dementia; patient uses Exelon patch 10. Hypokalemia; supplemented in ED; we will monitor electrolytes closely and supplement as needed
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
[2022-03-08 12:04] LABS: Glucose,Whole Blood 238 mg/dL (70-110)
--- NOTE | 2022-03-08 12:11 | CDI ---
Documentation Clarification Form Date: 03/08/2022 11:45:32 AM From: Ashley Rothman RN CCDS Admit Date: 03/03/2022 8:07:00 PM Patient Name: Kenroy Lovelace Visit Number: [id number] Discharge Date: ATTENTION: The Clinical Documentation Specialists (CDI) and [facility] Coding Staff appreciate your assistance in clarifying documentation. Please respond to the clarification below the line at the bottom and electronically sign. The CDI & [facility] Coding staff will review the response and follow-up if needed. Please note: Queries are made part of the Legal Health Record. If you have any questions, please contact the author of this message via ITS. Dr. Kam E Sheet Conflicting documentation has been found in the medical record. As attending physician, please provide clarification. Chronic Diastolic heart failure, Clinical documentation query, 03/07. Acute Diastolic heart failure, Pulmonary consult, 03/07. History/Risk Factors: 82-year-old male presents to the ED with weakness and feels unsteady on his feet due to weakness. Patient has mild exertional dyspnea and mildly productive cough. Medical History: Atrial fibrillation; Heart failure, DM, Hearing disorder and HTN. Clinical Indicators: VS/Pulse OX: 03/03 B/P 109/73; HR 68; Temp 97.8 F Oral; RR 16; SpO2 95% ra BNP:03/03 2540 Echocardiogram Results: EF 55% Normal LV size and systolic function. There is aortic valve sclerosis without stenosis. There is mild mitral annular calcification. Mild mitral and tricuspid insufficiency. No significant pulmonary hypertension. Chest X Ray: 03/03 COPD with bilateral infiltrates. New area of patchy infiltrate left upper lobe. Treatment: 03/04 Lasix 40mg PO Daily; 03/04 Toprol XL 25mg PO Daily; 03/04 Aldactone 25mg PO Daily. Please clarify which diagnosis is most appropriate: [ ] Chronic Diastolic CHF [ ] Acute on Chronic Diastolic CHF [ ] Other (please specify) [ ] Unable to determine (Template Last Revised: April 2020) Chronic Diastolic CHF MTDD
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
--- NOTE | 2022-03-08 13:00 | P.PCN ---
Date of Procedure: 03/08/22 Preoperative Diagnosis: Right knee pain; right knee effusion Postoperative Diagnosis: Same Procedure(s) Performed: Right knee aspiration Surgeon: Marco Murphy Estimated Blood Loss (ml): 0 Pathology: other (anaerobic and aerobic cultures, cell count, Gram stain and crystal analysis, fungal cultures) Disposition: no change (on 3s) Indications for Procedure: Right knee pain; right knee effusion Operative Findings: 30 cc straw colored fluid Description of Procedure: The risk and benefits of the procedure were discussed the patient and today at bedside, they are in good understanding and would like to proceed. A consent form was obtained prior to the procedure, a timeout was done at bedside with the nursing staff. Appropriate paperwork was signed and dated. Patient was in semirecumbent position, the knee was prepped with 1 chloraprep and one alcohol swab. A 22-gauge needle was used to aspirate about 30 mL of joint fluid from knee (30 cc straw colored fluid). Patient tolerated procedure well, a bandage was placed after the aspiration. Fluid was then sent to the lab for anaerobic and aerobic cultures, cell count, Gram stain and crystal analysis
[2022-03-08 13:10] LABS: Appearance,BF Cloudy; Nucleated Cells, Body Fluid 29750 /uL; RBC, Body Fluid 3400 /uL
[2022-03-08 13:12] LABS: Mononuclear WBC,Body Fluid 14 %; Polynuclear WBC,Body Fluid 86 %; Total Cells Counted,Body Fluid 100
[2022-03-08] MEDS: IBUPROFEN 400 MG TAB PO SCH ×2 (16:43→21:11)
[2022-03-08 16:46] LABS: Glucose,Whole Blood 291 mg/dL (70-110)
[2022-03-08 20:09] LABS: Glucose,Whole Blood 155 mg/dL (70-110)
[2022-03-08 20:44] LABS: Synovial Fld Crystals Seen (None Seen)
[2022-03-08] MEDS: MIRTAZAPINE 15 MG TAB PO SCH (21:12)
[2022-03-09 07:48] LABS: Glucose,Whole Blood 162 mg/dL (70-110)
[2022-03-09] MEDS: SYMBICORT 160-4.5 MCG INHALER INHALATION SCH ×2 (07:48→19:52)
--- NOTE | 2022-03-09 07:57 | P.PN ---
Subjective Progress Note Date: 03/09/22 Principal diagnosis: Right Knee pain Patient seen and examined this morning. Patient was resting in bed. Band-Aid to the injection site of the right knee, CDI. Patient states the pain to the right knee has greatly improved since the aspiration. Informed patient we are awaiting the results of the fluid. Right knee does not appear to be infected. Patient reports that he has stood on right lower extremity without difficulty. Continue to work with PT/OT. Patient has been afebrile, denies nausea/vomiting, or chest pain. Objective - Vital Signs Vital signs: Vital Signs Temp 97.6 F 03/09/22 01:45 Pulse 69 03/09/22 01:45 Resp 16 03/09/22 01:45 BP 112/63 03/09/22 01:45 Pulse Ox 93 L 03/09/22 01:45 FiO2 Intake & Output 03/08/22 03/09/22 03/09/22 18:59 06:59 18:59 Intake Total 240 Output Total 1200 200 Balance -960 -200 Intake: Oral 240 Output: Urine 1200 200 Other: Voiding Method Bedside Commode Bedside Commode Urinal Urinal Diaper Diaper # Voids 2 # Bowel Movements 0 - Exam Physical Examination General: The patient is awake and alert, in no acute distress Skin: Skin is warm and dry with no obvious rashes or lesions. Hairy patches absent, no dorsal skin dimples, no cafe au lait spots, and no surgical incisions. Eye: Pupils are equal, round and reactive to light, extra-ocular movements are intact; there is normal conjunctiva bilaterally. Neck: The neck is supple, there is no tenderness and ROM intact. Cardiovascular: There is a regular rate and rhythm. No murmur, rub or gallop is appreciated. Respiratory: Lungs are clear to auscultation, respirations are non-labored, breath sounds are equal. Gastrointestinal: Soft, non-distended, non-tender abdomen. Back: There is no tenderness to palpation in the midline, paralumbar, parathoracic or buttocks region. There is no obvious deformity . Musculoskeletal: ROM limited to the right lower extremity secondary to stiffness from bursal fluid and aspiration. Muscle strength in all major muscle groups of bilateral upper extremities 4/5, bilateral lower extremities 4/5. Neurological: CN 2-12 intact. There are no obvious motor or sensory deficits. Movement and coordination equal and intact. Sensory exam to light touch intact C5-T1 and intact from L2-S1. Reflexes 2/4 in bilateral upper and lower extremities. Negative Hoffmans, babinski, and clonus signs. Psychiatric: Cooperative, appropriate mood & affect, normal judgment. - Labs CBC & Chem 7: 03/08/22 07:08 03/08/22 07:08 Labs: Abnormal Lab Results - Last 24 Hours (Table) 03/08/22 03/08/22 03/08/22 Range/Units 07:08 07:08 10:30 RBC 3.99 L (4.30-5.90) m/uL Hgb 12.1 L (13.0-17.5) gm/dL Hct 36.3 L (39.0-53.0) % Neutrophils # 8.9 H (1.3-7.7) k/uL Lymphocytes # 0.7 L (1.0-4.8) k/uL Sodium 134 L (137-145) mmol/L Glucose 221 H (74-99) mg/dL POC Glucose (mg/dL) (70-110) mg/dL Synovial Crystals Seen A (None Seen) 03/08/22 03/08/22 03/08/22 Range/Units 12:03 16:45 20:05 RBC (4.30-5.90) m/uL Hgb (13.0-17.5) gm/dL Hct (39.0-53.0) % Neutrophils # (1.3-7.7) k/uL Lymphocytes # (1.0-4.8) k/uL Sodium (137-145) mmol/L Glucose (74-99) mg/dL POC Glucose (mg/dL) 238 H 291 H 155 H (70-110) mg/dL Synovial Crystals (None Seen) Microbiology - Last 24 Hours (Table) 03/08/22 10:30 Gram Stain - Preliminary Knee - Right Wound Culture - Preliminary 03/03/22 18:43 Blood Culture - Preliminary Blood No Growth after 120 hours 03/03/22 18:30 Blood Culture - Preliminary Blood No Growth after 120 hours 03/08/22 10:30 Fungal Culture - Preliminary Knee - Right 03/08/22 10:30 Anaerobic Culture - Preliminary Knee - Right Assessment and Plan Assessment: Right knee pain Right knee effusion Plan: 1. Awaiting results from Aerobic and anaerobic cultures, synovial crystals, cell, and fungal cultures. 2. Appreciate medical management 3. Pain management - tramadol 4. DVT prophylaxis - eliquis 5. GI prophylaxis - Protonix 6. PT/OT - weightbearing as tolerated with walker; ice and elevate the knee 7. Encourage incentive spirometer use 8. Appreciate consult Cleared for transfer to subacute rehab once bed available Our services are signing off at this time, patient may follow up in office. Feel free to reach out with any questions or concerns.
[2022-03-09] MEDS: TAMSULOSIN 0.4 MG CAP.ER.24H PO SCH ×2 (08:41→21:04)
[2022-03-09] MEDS: FUROSEMIDE 40 MG TAB PO SCH (08:41)
[2022-03-09] MEDS: metOLazone 5 MG TAB PO SCH (08:41)
[2022-03-09] MEDS: SPIRONOLACTONE 25 MG TAB PO SCH (08:41)
[2022-03-09] MEDS: metFORMIN 500 MG TAB PO SCH ×2 (08:41→21:04)
[2022-03-09] MEDS: MONTELUKAST 10 MG TAB PO SCH (08:41)
[2022-03-09] MEDS: IBUPROFEN 400 MG TAB PO SCH ×3 (08:41→21:04)
[2022-03-09] MEDS: METOPROLOL SUCCINATE (ER) 25 MG TAB.ER.24H PO SCH (08:41)
[2022-03-09] MEDS: ATORVASTATIN 20 MG TAB PO SCH (08:41)
[2022-03-09] MEDS: PANTOPRAZOLE 40 MG/10 ML VIAL IV SCH (08:42)
[2022-03-09] MEDS: polyethylene glycoL 3350 17 GM POWD.PACK PO SCH (08:42)
[2022-03-09] MEDS: APIXABAN 5 MG TAB PO SCH ×2 (08:42→21:04)
[2022-03-09] MEDS: DONEPEZIL 10 MG TAB PO SCH (08:42)
[2022-03-09] MEDS: INSULIN ASPART (NovoLOG) 100 UNIT/ML VIAL SQ SCH ×4 (08:42→21:04)
--- NOTE | 2022-03-09 09:31 | XR ---
EXAMINATION TYPE: XR chest 1V portable DATE OF EXAM: 03/09/2022 COMPARISON: 03/17/2022 HISTORY: Shortness of breath TECHNIQUE: Single frontal view of the chest is obtained. FINDINGS: Hypertrophic and degenerative changes in the spine with bilateral infiltrate and pleural e ffusion. Diffuse interstitial pattern with no pneumothorax. Chronic rib cage deformities on the left with diffuse osteopenia. Improved appearance of the patchy infiltrate in the left lobe. IMPRESSION: 1. Bilateral infiltrate and pleural effusion superimposed on a background of COPD. Correlate for mild CHF. Otherwise consider pneumonia.
[2022-03-09 11:27] LABS: Glucose,Whole Blood 290 mg/dL (70-110)
--- NOTE | 2022-03-09 12:29 | P.PN ---
Subjective Progress Note Date: 03/09/22 Principal diagnosis: acute exacerbation of diastolic heart failure, COPD exacerbation Evaluating this patient first time on 03/07/2022 on the cardiac stepdown unit. Patient was originally admitted on 03/03/2022 with a chief complaint of generalized weakness for approximately 2 weeks, some confusion. This new consult was placed apparently due to stable bilateral infiltrates and a small effusion found on chest x-ray 03/07/2022. Abdominal CT without contrast didn't show bilateral pleural effusions larger on the right on 03/03/2022. Patient is clinically asymptomatic. Patient is resting in bed, comfortably, on room air. In no acute distress. No conversational dyspnea or accessory muscle use. Patient denies any form of shortness of breath, cough, chest pain, or fevers. Patient's baseline medical history is positive for atrial fibrillation maintained on Eliquis for anticoagulation, CHF, COPD, diabetes mellitus, hypertension, hyperlipidemia, pneumonia, traumatic pneumothorax, dementia. Troponins were mildly elevated on admission and trended down to 0.02. An echocardiogram performed on 03/07/2022 showed normal systolic function with an EF of 55%. Patient manages his COPD and Symbicort inhaler and Ventolin inhaler outpatient. Blood cultures show no growth at 72 hours. CBC from today shows no leukocytosis with a WBC count is 7.8, hemoglobin 11.6, hematocrit 34.8, platelets 360,000. His BMP from today also was unremarkable with a sodium of 134, potassium 4.3, chloride 103, serum CO2 28, BUN 25, creatinine 0.92, glucose 167. His BNP on admission was 2540 and is down to 989 today. Patient has been diuresed with Lasix 40 mg by mouth daily. Patient was negative for influenza, RSV, coronavirus. He is receiving Rocephin for empiric antibiotic therapy. Patient has remained afebrile. Vital signs are stable on room air. The patient is seen today 03/08/2022 in follow-up on the selective care unit. He is currently laying flat in bed. Awake and alert in no acute distress. He denies any worsening shortness of breath, cough or congestion. No chest pain. He is maintaining good O2 saturation in the 90s on room air. He's been afebrile. Hemodynamically stable. Blood cultures reveal no growth. White count 10.3. Hemoglobin 12.1. Platelets 415. Sodium 134. Potassium 4.6. Chloride 101. BUN 18. Creatinine 0.97. He remains on Symbicort and albuterol. Anticoagulated with Eliquis. reevaluating this patient today on 03/09/2022 in follow-up on a general medical floor. He is currently sitting up in bed, alert and awake, in no acute distress. He is on room air. chest x-ray from today continues to shows bilateral infiltrates and pleural effusion with some improvement in the left lobe, and some chronic COPD-like changes. he is maintained on Ventolin nebulization, Symbicort inhaler, and some empiric antibiotics in the form of Rocephin. He remains afebrile. no new labs today. patient's only substantial concern is some right knee pain, and orthopedics following. No redness, heat, or trauma noted to the knee. patient's uric acid level was 5.8. patient is anticoagulated on Eliquis, and is receiving GI Prophylaxis with Protonix. vital signs remain stable. The plan is for discharge to [facility] when ready. Objective - Vital Signs Vital signs: Vital Signs Temp 97.6 F 03/09/22 07:24 Pulse 74 03/09/22 07:24 Resp 16 03/09/22 07:24 BP 115/72 03/09/22 07:24 Pulse Ox 92 L 03/09/22 07:24 FiO2 Intake & Output 03/08/22 03/09/22 03/09/22 18:59 06:59 18:59 Intake Total 240 Output Total 1200 200 Balance -960 -200 Intake: Oral 240 Output: Urine 1200 200 Other: Voiding Method Bedside Commode Bedside Commode Bedside Commode Urinal Urinal Urinal Diaper Diaper Diaper # Voids 2 # Bowel Movements 0 - Exam GENERAL EXAM: Alert, poor historian, 82-year-old male, lying in bed, on room air, comfortable in no apparent distress. HEAD: Normocephalic. EYES: Normal reaction of pupils, equal size. NOSE: Clear with pink turbinates. THROAT: No erythema or exudates. NECK: No masses, no JVD. CHEST: No chest wall deformity. LUNGS: Equal air entry with no crackles, wheeze, rhonchi or dullness. CVS: S1 and S2 normal with no audible murmur, regular rhythm. No extra heart sounds. ABDOMEN: No hepatosplenomegaly, normal bowel sounds, no guarding or rigidity. SPINE: No scoliosis or deformity SKIN: No rashes CENTRAL NERVOUS SYSTEM: No focal deficits, tone is normal in all 4 extremities. EXTREMITIES: There is no peripheral edema. No clubbing, no cyanosis. Peripheral pulses are intact. no obvious erythema or heat appreciated over the right knee - Labs CBC & Chem 7: 03/08/22 07:08 03/08/22 07:08 Labs: Abnormal Lab Results - Last 24 Hours (Table) 03/08/22 03/08/22 03/08/22 Range/Units 10:30 16:45 20:05 POC Glucose (mg/dL) 291 H 155 H (70-110) mg/dL Synovial Crystals Seen A (None Seen) 03/09/22 03/09/22 Range/Units 07:26 11:17 POC Glucose (mg/dL) 162 H 290 H (70-110) mg/dL Synovial Crystals (None Seen) Microbiology - Last 24 Hours (Table) 03/08/22 10:30 Gram Stain - Preliminary Knee - Right Wound Culture - Preliminary 03/03/22 18:43 Blood Culture - Preliminary Blood No Growth after 120 hours 03/03/22 18:30 Blood Culture - Preliminary Blood No Growth after 120 hours 03/08/22 10:30 Fungal Culture - Preliminary Knee - Right 03/08/22 10:30 Anaerobic Culture - Preliminary Knee - Right Assessment and Plan Assessment: Acute diastolic heart failure. Recent echo shows preserved ejection fraction. Suspected community-acquired pneumonia unlikely. coverage with Rocephin. On room air. Will check procalcitonin and manage antibiotics accordingly. procalcitonin was mildly elevated, we will continue with Rocephin at this time. COPD managed with Symbicort inhaler and Ventolin inhaler which she uses alcohol. Non-oxygen dependent Atrial fibrillation anticoagulated with Eliquis. Currently normal sinus mechanism Ex-smoker Bilateral pleural effusion. Clinically asymptomatic and receiving Lasix History of congestive heart failure. Recent echo shows preserved ejection fr action. History of dementia Hypertension Hyperlipidemia Diabetes mellitus type 2 Plan: Patient's medications, labs, chest x-ray reviewed On room air Continue empiric Rocephin for now patient's procalcitonin was minimally elevated, we'll continue with Rocephin at this time Continue with oral Lasix and spironolactone for diuresis Continue Symbicort Inhaler and Ventolin inhaler plan for discharge [facility] when ready. We will continue to follow I have personally seen and examined the patient, performed the documentation and the assessment and plan as written. Number of minutes spent on the visit: 0. Time with Patient: Less than 30
--- NOTE | 2022-03-09 13:36 | P.PN ---
Subjective From the records 82-year-old male with past medical history remarkable for atrial fibrillation on anticoagulation, congestive heart failure, COPD, diabetes, hypertension, dementia who presents emergency Department concerning of weakness. Patient is an increased weakness would last 2 weeks. Has also had a decrease in 15 pounds likely secondary to significant improvement in that lower extremity edema. Patient's primary care physicians have been adjusting his medications. Has generalized weakness. States he feels unsteady on his feet due to the weakness. Denies any abdominal pain. Listening constipation. Did have a one-time episode of a brown bowel movement earlier today with surrounding blood. No history of GI bleed in the past. No hematemesis, nausea, vomiting. No dysuria, hematuria. Denies chest pain, orthopnea, PND. Endorses some mild exertional dyspnea. Endorses a mildly productive cough. Denies any fevers or sick con tacts. No other acute complaints at this time. Presents over concern for weakness. WBC 9.1 hemoglobin 12.9 hematocrit 36 platelet count 325,000 INR 1.0 sodium 135 potassium 3.5 BUN 59 creatinine 1.0 glucose 189 total bilirubin 0.6 AST 42 ALT 56 alkaline phosphatase 81 24 hour interval change 03/06/2022 Patient is seen and evaluated in room at bedside; patient's is present in the room; patient reports breathing is improved but continues to be extremely weak Vital signs reveal temperature of 97.9, pulse 71, respiration 18 and blood pressure of 93/56 with O2 saturation of 94% on room air - Patient remains on IV ceftriaxone Evaluated by GI and mild local bleed is deemed secondary to constipation and hemorrhoids; patient remains on MiraLAX and is having bowel movements; HDL colonoscopy recommended - Remains in atrial fibrillation with improved heart rate control on Toprol-XL - We will consult PT/OT to help determine discharge planning; patient can be switched to oral antibiotics and could be discharged once patient has been evaluated by PT; reports patient is to be and she is unable to care for him at home and is requesting subacute rehab 03/07/2022 Patient is looks very tired, he is awake and answers questions appropriately but slow but also he looks confused although he knows he is in [facility] in [place] on he thought this 2062 and he could not tell the name of the president. He does not seem to choking however he is mildly tachypneic at bedside and states that he is been more confused on the last month he wants to see Dr. Al who increased his dementia medication However he has poor appetite and poor oral intake over the last 2 weeks and he lost some weight. Patient states that he has been having coughing and make an a lot of phlegm and he's been more confused lately. No other symptoms, no other GI or urinary symptoms. Patient looks calm. He is hemodynamically stable and saturating 93% on room air. No leukocytosis,, no fever Is currently on ceftriaxone and Eliquis which is a home dose His positive occult blood in the stool is secondary to hemorrhoids/fissure rather than GI bleed, hemoglobin is monitored by GI service signed off. No evidence of active GI bleed. Patient denies any chest pain. Repeat chest x-ray showing bilateral and basal infiltrates is a stable and left upper lobe infiltrates with COPD We will consult pulmonary service 03/08/2022 Patient today the proximal even better, he sitting up in bed, he is eating his meal and he looks has good appetite. His mentation is even better than yesterday, he knows he is in [facility] and he can tell the year 2022 however he thought the president's Yong, he has some memory problems most likely related to worsening dementia as per who saw his neurologist one month ago for worsening dementia. Patient with no chest pain or dyspnea. He has mildly elevated troponin on admission, however it's normalized. Echocardiogram showing normal ejection fraction of 55% with no hypokinesia. Patient had cardiac cath 06/08/2021 s howing mild CAD. Patient mainly complain is from right knee and swelling, which I think it is the main problem for the patient regarding and cardiopulmonary illness which looks his stable currently. Right knee x-ray showing arthropathy suggestive of osteoarthritis or positional arthropathy. With a small suprapatellar bursal fluid collection. Orthopedic team were consulted yesterday. And will follow up with the recommendation today once we see him. We will check uric acid tomorrow. Patient with no leukocytosis or fever to suggest infection currently. Pending orthopedic evaluation as above. 03/09/2022 Patient looks improving each day, is more up and comfortable, he sitting in chair with no difficulty. He denies any other new complaints. No chest pain or dyspnea. His right knee looks better after tapping, culture is pending. However clinically looks better less swollen, less warm and better range of movement, patient states that he walk with physical therapy in the hallway. Other than that he remains on ceftriaxone, home dose of Eliquis. Hemodynamically or he might be discharged to [facility] for rehab, today I discussed the case with and all her questions answered Objective - Vital Signs Vital signs: Vital Signs Temp 97.3 F L 03/09/22 12:44 Pulse 83 03/09/22 12:44 Resp 16 03/09/22 12:44 BP 139/64 03/09/22 12:44 Pulse Ox 90 L 03/09/22 12:44 FiO2 Intake & Output 03/08/22 03/09/22 03/09/22 18:59 06:59 18:59 Intake Total 240 Output Total 1200 200 Balance -960 -200 Intake: Oral 240 Output: Urine 1200 200 Other: Voiding Method Bedside Commode Bedside Commode Bedside Commode Urinal Urinal Urinal Diaper Diaper Diaper # Voids 2 # Bowel Movements 0 - Exam -GENERAL: The patient is alert and oriented x1 to place only , not in any acute distress. Generally weak HEENT: Pupils are round and equally reacting to light. EOMI. No scleral icterus. No conjunctival pallor. Normocephalic, atraumatic. No pharyngeal erythema. No thyromegaly. CARDIOVASCULAR: S1 and S2 present. No murmurs, rubs, or gallops. -PULMONARY: Chest is clear to auscultation, no wheezing or crackles. Mildly tachypneic ABDOMEN: Soft, nontender, nondistended, normoactive bowel sounds. No palpable organomegaly. -MUSCULOSKELETAL: No joint swelling or deformity. Right knee swelling especially on the upper part with increased warmth but no redness, tender with some restriction of movement EXTREMITIES: No cyanosis, clubbing, or pedal edema. NEUROLOGICAL: Gross neurological examination did not reveal any focal deficits. SKIN: No rashes. no petechiae. - Labs CBC & Chem 7: 03/08/22 07:08 03/08/22 07:08 Labs: Abnormal Lab Results - Last 24 Hours (Table) 03/08/22 03/08/22 03/08/22 Range/Units 10:30 16:45 20:05 POC Glucose (mg/dL) 291 H 155 H (70-110) mg/dL Synovial Crystals Seen A (None Seen) 03/09/22 03/09/22 Range/Units 07:26 11:17 POC Glucose (mg/dL) 162 H 290 H (70-110) mg/dL Synovial Crystals (None Seen) Microbiology - Last 24 Hours (Table) 03/08/22 10:30 Gram Stain - Preliminary Knee - Right Wound Culture - Preliminary 03/03/22 18:43 Blood Culture - Preliminary Blood No Growth after 120 hours 03/03/22 18:30 Blood Culture - Preliminary Blood No Growth after 120 hours 03/08/22 10:30 Fungal Culture - Preliminary Knee - Right 03/08/22 10:30 Anaerobic Culture - Preliminary Knee - Right Assessment and Plan Assessment: 1. Bilateral basal infiltrates and left upper infiltrates, possible Community- acquired pneumonia; patient has been placed on Rocephin - Pulmonary team consult 2. Right knee arthroplasty, check uric acid, follow-up with orthopedic consult was ordered. Pain management, short course of Motrin 3. Acute renal injury; resolved 4. Positive stool occult blood - Patient has been evaluated by gastroenterology both signed off the case - large amount of stool burden - Gastroenterology radiating positive stool occult blood to constipation and possible associated hemorrhoids or fissure - Patient has been started on a bowel regimen - No plans for endoscopy as admission 5. Hyperlipidemia; Lipitor 20 mg daily 6. COPD/asthma Symbicort twice a day, albuterol inhaler 2 puffs 4 times a day when necessary, simulated milligrams daily 7. Hypertension; metoprolol 25 mg daily; Aldactone 25 mg daily 8. Diabetes mellitus type 2; patient takes metformin/glipizide which was increased on hold; monitor Accu-Cheks every 6 hours his symptoms and sliding scale 9. Dementia; patient uses Exelon patch 10. Hypokalemia; supplemented in ED; we will monitor electrolytes closely and supplement as needed
[2022-03-09 17:07] LABS: Glucose,Whole Blood 130 mg/dL (70-110)
[2022-03-09 20:25] LABS: Glucose,Whole Blood 206 mg/dL (70-110)
[2022-03-09] MEDS: MIRTAZAPINE 15 MG TAB PO SCH (21:04)
[2022-03-10 07:12] LABS: Glucose,Whole Blood 150 mg/dL (70-110)
[2022-03-10] MEDS: SYMBICORT 160-4.5 MCG INHALER INHALATION SCH (08:01)
[2022-03-10 08:31] VITALS: RESP 18
[2022-03-10] MEDS: IBUPROFEN 400 MG TAB PO SCH (08:56)
[2022-03-10] MEDS: TAMSULOSIN 0.4 MG CAP.ER.24H PO SCH (08:56)
[2022-03-10] MEDS: METOPROLOL SUCCINATE (ER) 25 MG TAB.ER.24H PO SCH (08:56)
[2022-03-10] MEDS: PANTOPRAZOLE 40 MG/10 ML VIAL IV SCH (08:56)
[2022-03-10] MEDS: ATORVASTATIN 20 MG TAB PO SCH (08:56)
[2022-03-10] MEDS: DONEPEZIL 10 MG TAB PO SCH (08:56)
[2022-03-10] MEDS: MONTELUKAST 10 MG TAB PO SCH (08:56)
[2022-03-10] MEDS: metFORMIN 500 MG TAB PO SCH (08:56)
[2022-03-10] MEDS: INSULIN ASPART (NovoLOG) 100 UNIT/ML VIAL SQ SCH ×2 (08:56→13:00)
[2022-03-10] MEDS: SPIRONOLACTONE 25 MG TAB PO SCH (08:56)
[2022-03-10] MEDS: APIXABAN 5 MG TAB PO SCH (08:56)
[2022-03-10] MEDS: FUROSEMIDE 40 MG TAB PO SCH (08:56)
[2022-03-10] MEDS: polyethylene glycoL 3350 17 GM POWD.PACK PO SCH (08:59)
--- NOTE | 2022-03-10 11:27 | P.PN ---
Subjective Progress Note Date: 03/10/22 Principal diagnosis: acute exacerbation of diastolic heart failure, COPD exacerbation Evaluating this patient first time on 03/07/2022 on the cardiac stepdown unit. Patient was originally admitted on 03/03/2022 with a chief complaint of generalized weakness for approximately 2 weeks, some confusion. This new consult was placed apparently due to stable bilateral infiltrates and a small effusion found on chest x-ray 03/07/2022. Abdominal CT without contrast did show bilateral pleural effusions larger on the right on 03/03/2022. Patient is clinically asymptomatic. Patient is resting in bed, comfortably, on room air. In no acute distress. No conversational dyspnea or accessory muscle use. Patient denies any form of shortness of breath, cough, chest pain, or fevers. Patient's baseline medical history is positive for atrial fibrillation maintained on Eliquis for anticoagulation, CHF, COPD, diabetes mellitus, hypertension, hyperlipidemia, pneumonia, traumatic pneumothorax, dementia. Troponins were mildly elevated on admission and trended down to 0.02. An echocardiogram performed on 03/07/2022 showed normal systolic function with an EF of 55%. Patient manages his COPD and Symbicort inhaler and Ventolin inhaler outpatient. Blood cultures show no growth at 72 hours. CBC from today shows no leukocytosis with a WBC count is 7.8, hemoglobin 11.6, hematocrit 34.8, platelets 360,000. His BMP from today also was unremarkable with a sodium of 134, potassium 4.3, chloride 103, serum CO2 28, BUN 25, creatinine 0.92, glucose 167. His BNP on admission was 2540 and is down to 989 today. Patient has been diuresed with Lasix 40 mg by mouth daily. Patient was negative for influenza, RSV, coronavirus. He is receiving Rocephin for empiric antibiotic therapy. Patient has remained afebrile. Vital signs are stable on room air. The patient is seen today 03/08/2022 in follow-up on the selective care unit. He is currently laying flat in bed. Awake and alert in no acute distress. He denies any worsening shortness of breath, cough or congestion. No chest pain. He is maintaining good O2 saturation in the 90s on room air. He's been afebrile. Hemodynamically stable. Blood cultures reveal no growth. White count 10.3. Hemoglobin 12.1. Platelets 415. Sodium 134. Potassium 4.6. Chloride 101. BUN 18. Creatinine 0.97. He remains on Symbicort and albuterol. Anticoagulated with Eliquis. reevaluating this patient today on 03/09/2022 in follow-up on a general medical floor. He is currently sitting up in bed, alert and awake, in no acute distress. He is on room air. chest x-ray from today continues to shows bilateral infiltrates and pleural effusion with some improvement in the left lobe, and some chronic COPD-like changes. he is maintained on Ventolin nebulization, Symbicort inhaler, and some empiric antibiotics in the form of R ocephin. He remains afebrile. no new labs today. patient's only substantial concern is some right knee pain, and orthopedics following. No redness, heat, or trauma noted to the knee. patient's uric acid level was 5.8. patient is anticoagulated on Eliquis, and is receiving GI Prophylaxis with Protonix. vital signs remain stable. The plan is for discharge to [facility] when ready. I'm reevaluating this patient today on 03/10/2022 in follow-up on general medical floor. The patient is resting comfortably, on room air, up in bed. His lungs sound clear to auscultation. No new chest x-ray to review today. X-ray from yesterday did show some persistent small effusions. Patient is being diuresed with Lasix 40 mg by mouth daily and spironolactone 25 mg by mouth daily. He continues to receive Ventolin nebulization, Symbicort inhaler, and empiric ceftriaxone. He remains afebrile. He has no specific complaints. Vital signs remained hemodynamically stable. Plan is for discharge to [facility]. Objective - Vital Signs Vital signs: Vital Signs Temp 97.9 F 03/10/22 08:00 Pulse 85 03/10/22 08:00 Resp 18 03/10/22 08:00 BP 114/65 03/10/22 08:00 Pulse Ox 96 03/10/22 08:03 FiO2 21 03/09/22 19:53 Intake & Output 03/09/22 03/10/22 03/10/22 18:59 06:59 18:59 Output Total 550 200 Balance -550 -200 Output: Urine 550 200 Other: Voiding Method Bedside Commode Bedside Commode Bedside Commode Urinal Urinal Urinal Diaper Diaper Diaper # Voids 1 - Exam GENERAL EXAM: Alert, poor historian, 82-year-old male, lying in bed, on room air, comfortable in no apparent distress. HEAD: Normocephalic. EYES: Normal reaction of pupils, equal size. NOSE: Clear with pink turbinates. THROAT: No erythema or exudates. NECK: No masses, no JVD. CHEST: No chest wall deformity. LUNGS: Equal air entry with no crackles, wheeze, rhonchi or dullness. CVS: S1 and S2 normal with no audible murmur, regular rhythm. No extra heart s ounds. ABDOMEN: No hepatosplenomegaly, normal bowel sounds, no guarding or rigidity. SPINE: No scoliosis or deformity SKIN: No rashes CENTRAL NERVOUS SYSTEM: No focal deficits, tone is normal in all 4 extremities. EXTREMITIES: There is no peripheral edema. No clubbing, no cyanosis. Peripheral pulses are intact. no obvious erythema or heat appreciated over the right knee - Labs CBC & Chem 7: 03/08/22 07:08 03/08/22 07:08 Labs: Abnormal Lab Results - Last 24 Hours (Table) 03/09/22 03/09/22 03/09/22 Range/Units 11:17 17:04 20:23 POC Glucose (mg/dL) 290 H 130 H 206 H (70-110) mg/dL 03/10/22 Range/Units 07:11 POC Glucose (mg/dL) 150 H (70-110) mg/dL Microbiology - Last 24 Hours (Table) 03/08/22 10:30 Gram Stain - Final Knee - Right Wound Culture - Final 03/03/22 18:43 Blood Culture - Final Blood No Growth after 144 hours 03/03/22 18:30 Blood Culture - Final Blood No Growth after 144 hours Assessment and Plan Assessment: Acute diastolic heart failure. Recent echo shows preserved ejection fraction. Suspected community-acquired pneumonia unlikely. coverage with Rocephin. On ro om air. Will check procalcitonin and manage antibiotics accordingly. procalcitonin was mildly elevated, we will continue with Rocephin at this time. COPD managed with Symbicort inhaler and Ventolin inhaler which she uses alcohol. Non-oxygen dependent Atrial fibrillation anticoagulated with Eliquis. Currently normal sinus mechanism Ex-smoker Bilateral pleural effusion. Clinically asymptomatic and receiving Lasix History of congestive heart failure. Recent echo shows preserved ejection fraction. History of dementia Hypertension Hyperlipidemia Diabetes mellitus type 2 Plan: Patient's medications, labs, chest x-ray reviewed On room air Continue empiric antibiotics for 5 more days, may switch to oral route for discharge Continue with oral Lasix and spironolactone for diuresis Continue Symbicort Inhaler and Ventolin inhaler plan for discharge Richard from a pulmonary standpoint, patient is quite stable no discharge. have personally seen and examined the patient, performed the documentation and the assessment and plan as written. Number of minutes spent on the visit: 10 Time with Patient: Less than 30
[2022-03-10 11:31] LABS: Glucose,Whole Blood 217 mg/dL (70-110)
--- NOTE | 2022-03-10 12:25 | P.DS ---
Providers Date of admission: 03/03/22 20:07 Attending physician: Zohreh Leavitt MD Consults: 03/03/22 20:07 Consult Physician Routine Consulting Provider: Rhianna Shipley Consult Reason/Comments: occult blood positive stool Do you want consulting provider notified?: Yes 03/07/22 10:34 Consult Physician Urgent Consulting Provider: Sanchez Oneill Consult Reason/Comments: pulmonary infilterates Do you want consulting provider notified?: Yes 03/07/22 17:24 Consult Physician Routine Consulting Provider: Nikko Hubbard Consult Reason/Comments: Right knee pain Do you want consulting provider notified?: Yes, Notify in am Primary care physician: [facility] Course: Diagnoses: 1. Bilateral basal infiltrates and left upper infiltrates, possible Community- acquired pneumonia; patient has been placed on antibiotics. He'll need follow- up outpatient 2. Right knee pseudogout, status post tapping by orthopedic team and culture is negative but showing calcium pyrophosphate. Improved with short course of Motrin 3. Acute renal injury; resolved 4. Positive stool occult blood, secondary to hemorrhoids. Follow-up with GI team as an outpatient 5. Hyperlipidemia; Lipitor 20 mg daily 6. COPD/asthma Symbicort twice a day, albuterol inhaler 2 puffs 4 times a day when necessary 7. Hypertension; metoprolol 25 mg daily; 8. Diabetes mellitus type 2; 9. Dementia; 10. Hypokalemia; Hospital course: 82-year-old male with past medical history remarkable for atrial fibrillation on anticoagulation, congestive heart failure, COPD, diabetes, hypertension, dementia who presents emergency Department concerning of weakness. Patient is an increased weakness would last 2 weeks. He wasn't eating well for 2 weeks, he was admitted initially with positive blood culture, developed by GI team and felt it is due to hemorrhoids and Has GI team actually signed off. Patient would benefit from follow-up as an outpatient Also he has abnormal chest x-ray with minimal respiratory symptoms, pneumonia is suspected pulmonary team about the patient, patient will be discharged on short course of oral antibiotic with recommendation to follow-up outpatient to repeat chest x-ray with Dr. Ramirez in 2-3 weeks, patient informed and he agrees. Also his right knee was a swollen status post tapping, culture is negative, Crystal is positive for calcium pyrophosphate consistent with pseudogout. Patient responded to shortness of Motrin, he can finish 2 more days of Motrin, needs significantly improved with less swelling, no redness, nontender and close to normal range of motion. No other new complaints. No urinary complaints, no abdominal pain or vomiting or diarrhea. No chest pain or dyspnea. Patient was cleared for discharge by all consultants and pulmonary orthopedic and GI service. Problems and management plan were discussed with the patient and he verbalized understanding and acceptance Patient was found stable and can be discharged home in guarded prognosis however he needs follow-up as an outpatient. Patient was instructed to follow up with PCP Dr. Hooper within one week and patient agrees Patient was instructed to follow up with Dr. Ramirez 2-3 weeks to repeat chest x-ray and he is agreeable Patient also was instructed to follow up with orthopedic team Dr. Hubbard in [address] Shipley in 2-3 weeks and he agrees to call and make appointment Physical exam Gen: patient is a AAOx3, no distress CVS: S1-S2, RRR, no murmur Lungs: B/L CTA, no wheezing Abdomen: soft, no distention, no tenderness, positive bowel sounds -Extremity: no leg edema or induration. Right knee swelling and movements significantly improved Time spent more than 35 minutes Patient Condition at Discharge: Stable Plan - Discharge Summary Discharge Rx Participant: No New Discharge Prescriptions: New Omeprazole [PriLOSEC] 20 mg PO AC-BID 7 Days #14 cap cefUROXime axetiL [Ceftin] 500 mg PO BID 5 Days #10 tab polyethylene glycoL 3350 [Miralax] 17 gm PO DAILY PRN packet PRN Reason: Constipation Ibuprofen [Motrin] 400 mg PO TID 6 Days #6 tab Continue Montelukast [Singulair] 10 mg PO DAILY Budesonide/Formoterol Fumarate [Symbicort 160-4.5 Mcg Inhaler] 2 puff INHALATION RT-BID Atorvastatin [Lipitor] 20 mg PO DAILY Apixaban [Eliquis] 5 mg PO BID #60 tab Ergocalciferol [Vitamin D2 (1250 Mcg = 96815 Iu)] 1,250 mcg PO FR Spironolactone [Aldactone] 25 mg PO DAILY Tamsulosin [Flomax] 0.4 mg PO BID Albuterol Inhaler [Ventolin Hfa Inhaler] 2 puff INHALATION RT-Q6H PRN PRN Reason: Shortness Of Breath Mirtazapine 15 mg PO HS Prevagen 1 tab PO DAILY Metoprolol Succinate (ER) [Toprol XL] 25 mg PO DAILY glipiZIDE/METFORMIN HCL [glipiZIDE/METFORMIN HCL 2.5-500 mg] 1 tab PO BID Furosemide [Lasix] 40 mg PO DAILY #0 Rivastigmine Tartrate [Exelon] 3 mg PO BID metOLazone [Zaroxolyn] 5 mg PO MOWE Discharge Medication List Atorvastatin [Lipitor] 20 mg PO DAILY 12/12/18 [History] Budesonide/Formoterol Fumarate [Symbicort 160-4.5 Mcg Inhaler] 2 puff INHALATION RT-BID 12/12/18 [History] Montelukast [Singulair] 10 mg PO DAILY 12/12/18 [History] Apixaban [Eliquis] 5 mg PO BID #60 tab 12/17/18 [Rx] Albuterol Inhaler [Ventolin Hfa Inhaler] 2 puff INHALATION RT-Q6H PRN 04/25/21 [History] Ergocalciferol [Vitamin D2 (1250 Mcg = 61226 Iu)] 1,250 mcg PO FR 04/25/21 [History] Metoprolol Succinate (ER) [Toprol XL] 25 mg PO DAILY 04/25/21 [History] Spironolactone [Aldactone] 25 mg PO DAILY 04/25/21 [History] Tamsulosin [Flomax] 0.4 mg PO BID 04/25/21 [History] glipiZIDE/METFORMIN HCL [glipiZIDE/METFORMIN HCL 2.5-500 mg] 1 tab PO BID 07/25/21 [History] Furosemide [Lasix] 40 mg PO DAILY #0 07/27/21 [Rx] Mirtazapine 15 mg PO HS 03/03/22 [History] Prevagen 1 tab PO DAILY 03/03/22 [History] Rivastigmine Tartrate [Exelon] 3 mg PO BID 03/03/22 [History] metOLazone [Zaroxolyn] 5 mg PO MOWE 03/03/22 [History] Ibuprofen [Motrin] 400 mg PO TID 6 Days #6 tab 03/10/22 [Rx] Omeprazole [PriLOSEC] 20 mg PO AC-BID 7 Days #14 cap 03/10/22 [Rx] cefUROXime axetiL [Ceftin] 500 mg PO BID 5 Days #10 tab 03/10/22 [Rx] polyethylene glycoL 3350 [Miralax] 17 gm PO DAILY PRN packet 03/10/22 [Rx] Follow up Appointment(s)/Referral(s): Sanchez Oneill MD [STAFF PHYSICIAN] - 2 Weeks (We recommend to repeat chest x-ray with your doctor) Poli Ceron MD [Primary Care Provider] - 1-2 days Rhianna Shipley MD [STAFF PHYSICIAN] - 2 Weeks Nikko Hubbard DO [Doctor of Osteopathic Medicine] - 2 Weeks
--- NOTE | 2022-03-10 12:58 | P.PN ---
Subjective Progress Note Date: 03/10/22 Principal diagnosis: Right knee pain; right knee effusion Patient seen at bedside this morning resting comfortably lying semirecumbent position. Patient says his right knee is feeling much better since it was aspirated a couple days ago. Patient says he is not having any right knee pain currently. Patient says he has been walking around the room and in the hallway using walker. Patient denies chest pain, fever, shortness of breath, nausea, vomiting, change in vision, loss of bowel/bladder control. Objective - Vital Signs Vital signs: Vital Signs Temp 97.3 F L 03/10/22 01:50 Pulse 77 03/10/22 01:50 Resp 15 03/10/22 01:50 BP 105/56 03/10/22 01:50 Pulse Ox 96 03/10/22 08:03 FiO2 21 03/09/22 19:53 Intake & Output 03/09/22 03/10/22 03/10/22 18:59 06:59 18:59 Output Total 550 Balance -550 Output: Urine 550 Other: Voiding Method Bedside Commode Bedside Commode Urinal Urinal Diaper Diaper # Voids 1 - Exam Inspection: Negative for any open fractures, significant erythema/ecchymosis/ulcers. Sensation: Sensation is equal, symmetric, bilaterally intact throughout the upper and lower extremities. Palpation: There is some tenderness to palpation over the right knee at the medial joint line and with patellofemoral compression. Nontender to palpation throughout rest of exam Range of motion: Patient has full range of motion left lower extremity exam. Patient has full range of motion in bilateral upper extremities on exam. lacks 10 degrees full extension right knee. Flexion - 110 degrees. Patient has full range of motion and right ankle in dorsi/plantar flexion. Motor: 4+/5 in all major motor groups in bilateral upper extremities and left lower extremity exam. 4/5 in resisted right knee flexion/extension on exam. 4/5 in resisted right hip flexion/extension on exam. 4+/5 in resisted right ankle dorsi/plantar flexion. Neurovascular status: Radial pulse intact, 2+ bilaterally. Cap refill under 3 seconds in digits of upper extremities. DP pulses palpable, but weak. Special tests: Negative Homans bilaterally. - Labs CBC & Chem 7: 03/08/22 07:08 03/08/22 07:08 Labs: Abnormal Lab Results - Last 24 Hours (Table) 03/09/22 03/09/22 03/09/22 Range/Units 11:17 17:04 20:23 POC Glucose (mg/dL) 290 H 130 H 206 H (70-110) mg/dL 03/10/22 Range/Units 07:11 POC Glucose (mg/dL) 150 H (70-110) mg/dL Microbiology - Last 24 Hours (Table) 03/03/22 18:43 Blood Culture - Final Blood No Growth after 144 hours 03/03/22 18:30 Blood Culture - Final Blood No Growth after 144 hours 03/08/22 10:30 Gram Stain - Preliminary Knee - Right Wound Culture - Preliminary Assessment and Plan Assessment: 1. Right knee effusion, moderate; right knee osteoarthritis 2. Multiple medical comorbidities Plan: 1. Right knee effusion, moderate; right knee osteoarthritis; Pseudogout - patient stable at bedside this morning. Synovial crystal analysis displayed calcium pyrophosphate crystals -> pseudogout. Normal cell count. Anaerobic and fungal cultures still pending. Recommend patient to be discharged with NSAIDs. WBAT with walker. Recommend patient to follow up in office with Dr. Hubbard for further evaluation. Patient is stable from an orthopedic standpoint for cassie chavira. At this time orthopedics is signing off. Please do not hesitate to contact us for any further questions. 2. Appreciate medical management 3. Pain management - tramadol 4. DVT prophylaxis - eliquis 5. GI prophylaxis - Protonix 6. PT/OT - weightbearing as tolerated with walker; ice and elevate the knee as needed 7. Encourage incentive spirometer use 8. Appreciate consult Time with Patient: Less than 30
[2022-03-10 13:10] VITALS: BP 107/68; PULSE 82; TEMP 98.2
[2022-03-11] MEDS ORDERED: ERGOCALCIFEROL 1,250 MCG (50,000 IU) CAPSULE PO SCH (09:00)
== END 2022-03-10 15:00 | DRG 682 ==
LOC: EC 13:10 → 3SCARD 20:07 → 5NMEDONC 03-08 18:33
PROVIDERS: ADMIT Internal Medicine; ATTEND Internal Medicine
PROC: 0S9C3ZX Drainage of Right Knee Joint, Percutaneous Approach, Diagnostic (ICD-10-PCS; principal; 2022-03-08)
DX: N17.9 Acute kidney failure, unspecified (principal); J18.9 Pneumonia, unspecified organism; E87.1 Hypo-osmolality and hyponatremia; K76.6 Portal hypertension; J44.1 Chronic obstructive pulmonary disease with (acute) exacerbation; I50.32 Chronic diastolic (congestive) heart failure; J44.0 Chronic obstructive pulmonary disease with (acute) lower respiratory infection; F03.90 Unspecified dementia, unspecified severity, without behavioral disturbance, psychotic disturbance, mood disturbance, and anxiety; I11.0 Hypertensive heart disease with heart failure; I48.91 Unspecified atrial fibrillation; E86.0 Dehydration; E11.9 Type 2 diabetes mellitus without complications; E78.5 Hyperlipidemia, unspecified; H91.90 Unspecified hearing loss, unspecified ear; I25.10 Atherosclerotic heart disease of native coronary artery without angina pectoris; M17.11 Unilateral primary osteoarthritis, right knee; E87.6 Hypokalemia; K64.9 Unspecified hemorrhoids; M11.261 Other chondrocalcinosis, right knee; R63.0 Anorexia; I08.1 Rheumatic disorders of both mitral and tricuspid valves; K59.09 Other constipation; Z20.822 Contact with and (suspected) exposure to COVID-19; Z79.01 Long term (current) use of anticoagulants; Z79.899 Other long term (current) drug therapy; Z79.51 Long term (current) use of inhaled steroids; Z79.84 Long term (current) use of oral hypoglycemic drugs; Z87.891 Personal history of nicotine dependence; Z87.01 Personal history of pneumonia (recurrent); Z68.21 Body mass index [BMI] 21.0-21.9, adult
CPT/HCPCS: 36415; 71045; 71046; 74176; 80048; 80053; 81001; 82272; 83036; 83735; 83880; 84100; 84145; 84484; 84550; 85025; 85610; 85730; 87040; 87070; 87075; 87102; 87205; 87635; 87636; 89050; 89060; 93005; 93306; 94640; 94760; 96361; 96365; 96366; 96367; 96375; 96376; 99285

== ENCOUNTER 2022-07-18 13:35 | Inpatient (IN) | payer MEDICARE ==
[2022-07-18] MEDS ORDERED: IBUPROFEN 600 MG TAB PO STA (13:59)
[2022-07-18] MEDS ORDERED: ACETAMINOPHEN TAB 500 MG TAB PO STA (13:59)
[2022-07-18] MEDS ORDERED: cefTRIAXone IN SWFI 1,000 MG/10 ML SYRINGE IVP STA (14:00)
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
[2022-07-18] MEDS: SODIUM CHLORIDE 0.9% 500 ML 500 ML IV SCH ×4 (14:19→16:00)
[2022-07-18 14:20] LABS: Basophils % (A) 0 %; Eosinophils # (A) 0.1 k/uL (0-0.7); Eosinophils % (A) 0 %; HCT 38.4 % (39.0-53.0); HGB 12.4 gm/dL (13.0-17.5); Lymphocytes # (A) 0.4 k/uL (1.0-4.8); Lymphocytes % (A) 3 %; MCH 29.9 pg (25.0-35.0); MCHC 32.2 g/dL (31.0-37.0); MCV 92.8 fL (80.0-100.0); Mean Platelet Volume 7.7; Monocytes # (A) 0.8 k/uL (0-1.0); Monocytes % (A) 5 %; Neutrophils % (A) 92 %; Platelet Count 419 k/uL (150-450); RBC 4.14 m/uL (4.30-5.90); RDW 12.9 % (11.5-15.5); WBC 16.4 k/uL (3.8-10.6)
[2022-07-18] MEDS ORDERED: KETOROLAC 15 MG/ML 1 ML VIAL IVP STA (14:24)
[2022-07-18 14:31] LABS: INR 1.1 (<1.2); Partial Thromboplastin Time 27.1 sec (22.0-30.0); Prothrombin Time 11.5 sec (9.0-12.0)
[2022-07-18 14:43] LABS: Albumin 2.7 g/dL (3.5-5.0); Calcium 9.7 mg/dL (8.4-10.2); Potassium 4.3 mmol/L (3.5-5.1); Total Bilirubin 0.4 mg/dL (0.2-1.3); Total Protein 5.4 g/dL (6.3-8.2)
[2022-07-18 16:27] LABS: Appearance,Urine Cloudy (Clear); Bilirubin,Urine Negative (Negative); Blood,Urine Trace (Negative); Color,Urine Yellow; Glucose,Urine (UA) Negative (Negative); Ketones,Urine Trace (Negative); Leukocyte Esterase,Urine Small (Negative); Mucus,Urine Rare /hpf; Nitrite,Urine Negative (Negative); PH, Urine 5.5 (5.0-8.0); Protein,Urine 2+ (Negative); RBC,Urine 9 /hpf (0-5); Specific Gravity,Urine 1.015 (1.001-1.035); Squamous Epithelial Cell,Urine 1 /hpf (0-4); Urobilinogen,Urine <2.0 mg/dL (<2.0); WBC,Urine 2 /hpf (0-5)
--- NOTE | 2022-07-18 17:28 | XR ---
EXAMINATION TYPE: XR chest 2V DATE OF EXAM: 07/18/2022 COMPARISON: 06/21/2022 INDICATION: Difficulty breathing TECHNIQUE: Frontal and lateral views of the chest are obtained. FINDINGS: The heart size is normal. The pulmonary vasculature is normal. There is a normal developmental variant posterior right lower lobe infiltrate. Some left pleural effu win should be considered. Minimal right pleural effusion may be developing. Retrocardiac infiltrate silhouetting the left diaphragm is present.. IMPRESSION: 1. Interval development of bibasilar infiltrates with small to moderate right and a minimal left pleu ral effusion. Findings are worsened from comparison.
[2022-07-18] MEDS ORDERED: AZITHROMYCIN 500 MG in SODIUM CHLORIDE 0.9% 250 ML IVPB STA (17:52)
[2022-07-18] MEDS ORDERED: PIPERACILLIN-TAZOBACTAM 3.375 GM in SODIUM CHLORIDE 0.9% 100 ML IVPB STA (17:52)
[2022-07-18] MEDS ORDERED: SODIUM CHLORIDE 0.9% 2,000 ML IV ONE (17:55)
[2022-07-18] MEDS ORDERED: SODIUM CHLORIDE 0.9% 500 ML 500 ML IV ONE (18:05)
[2022-07-18] MEDS ORDERED: VANCOMYCIN IV PER PHARMACY 1 EACH MISC MISCELLANE PRN (18:11)
[2022-07-18] MEDS: SODIUM CHLORIDE 0.9% 1,000 ML IV SCH (18:18)
[2022-07-18] MEDS ORDERED: PNEUMONIA PROTOCOL UTILIZED 1 EACH MISC PO PRN (18:27)
[2022-07-18] MEDS ORDERED: VANCOMYCIN 1,250 MG in SODIUM CHLORIDE 0.9% 250 ML IVPB ONE (18:30)
[2022-07-19] MEDS: PIPERACILLIN-TAZOBACTAM 3.375 GM in SODIUM CHLORIDE 0.9% 100 ML IVPB SCH ×3 (02:29→17:14)
[2022-07-19] MEDS: SODIUM CHLORIDE 0.9% 1,000 ML IV SCH ×3 (02:55→17:19)
--- NOTE | 2022-07-19 08:09 | XR ---
EXAMINATION TYPE: XR chest 1V portable DATE OF EXAM: 07/19/2022 Comparison: 07/18/2022 Clinical History: 82-year-old male pneumonia follow-up Findings: Part of the limits of normal in size. Old left-sided rib fracture deformities. Left PICC tip to the u pper right atrium region. Worsening bilateral lower lung opacities, right greater than left. Density now reaches up to the right mid lung level. Impression: Worsening bilateral lower lung opacities, right greater than left. On the right, changes now extend u p to the mid lung level.
[2022-07-19 09:31] LABS: African American GFR (CKD) 80 (>60 ml/min/1.73 sqM); Anion Gap 9 mmol/L; Blood Urea Nitrogen 29 mg/dL (9-20); Calcium 9.1 mg/dL (8.4-10.2); Carbon Dioxide 25 mmol/L (22-30); Chloride 103 mmol/L (98-107); Glucose 157 mg/dL (74-99); Non-African American GFR(CKD) 69 (>60 ml/min/1.73 sqM); Potassium 3.8 mmol/L (3.5-5.1); Sodium 137 mmol/L (137-145)
[2022-07-19] MEDS ORDERED: traMADol 50 MG TAB PO PRN (10:07)
[2022-07-19] MEDS ORDERED: bisacodyL 10 MG SUPP RECTAL PRN (10:07)
[2022-07-19] MEDS ORDERED: DEXTROSE 50% SYRINGE 50 ML IVP PRN ×2 (10:09)
[2022-07-19 11:45] LABS: Glucose,Whole Blood 151 mg/dL (70-110)
[2022-07-19] MEDS: INSULIN ASPART (NovoLOG) 100 UNIT/ML VIAL SQ SCH ×3 (11:52→20:51)
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
[2022-07-19] MEDS ORDERED: VANCOMYCIN 1,250 MG in SODIUM CHLORIDE 0.9% 250 ML IVPB SCH (14:00)
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
[2022-07-19] MEDS: IPRATROPIUM-ALBUTEROL 3 ML NEB INHALATION PRN ×2 (16:34→22:15)
[2022-07-19 16:51] LABS: Glucose,Whole Blood 110 mg/dL (70-110)
[2022-07-19] MEDS ORDERED: NON FORMULARY DRUG (Prevagen 1 CAP) PO SCH (17:00)
[2022-07-19] MEDS: SENNOSIDES-DOCUSATE SODIUM 1 EACH TAB PO SCH (17:13)
[2022-07-19] MEDS: APIXABAN 5 MG TAB PO SCH (17:13)
[2022-07-19] MEDS: TAMSULOSIN 0.4 MG CAP.ER.24H PO SCH (17:13)
[2022-07-19] MEDS: PANTOPRAZOLE 40 MG TABLET PO SCH (17:13)
[2022-07-19] MEDS: RIVASTIGMINE TARTRATE 3 MG PO SCH (17:14)
[2022-07-19] MEDS ORDERED: AZITHROMYCIN 500 MG TAB PO SCH (18:00)
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
[2022-07-19] MEDS: MONTELUKAST 10 MG TAB PO SCH (20:47)
[2022-07-19] MEDS: ATORVASTATIN 20 MG TAB PO SCH (20:47)
[2022-07-19] MEDS: METOPROLOL SUCCINATE (ER) 25 MG TAB.ER.24H PO SCH (20:47)
[2022-07-19] MEDS: MIRTAZAPINE 15 MG TAB PO SCH (20:48)
[2022-07-19 21:22] LABS: Glucose,Whole Blood 162 mg/dL (70-110)
[2022-07-19] MEDS: SYMBICORT 160-4.5 MCG INHALER INHALATION SCH (22:13)
[2022-07-20] MEDS: PIPERACILLIN-TAZOBACTAM 3.375 GM in SODIUM CHLORIDE 0.9% 100 ML IVPB SCH ×3 (01:33→17:12)
[2022-07-20 06:03] LABS: African American GFR (CKD) >90 (>60 ml/min/1.73 sqM); Non-African American GFR(CKD) 81 (>60 ml/min/1.73 sqM)
[2022-07-20 06:38] LABS: Glucose,Whole Blood 161 mg/dL (70-110)
[2022-07-20] MEDS: PANTOPRAZOLE 40 MG TABLET PO SCH ×2 (07:17→16:33)
[2022-07-20] MEDS: INSULIN ASPART (NovoLOG) 100 UNIT/ML VIAL SQ SCH ×4 (07:18→21:29)
[2022-07-20] MEDS: IPRATROPIUM-ALBUTEROL 3 ML NEB INHALATION PRN (07:36)
[2022-07-20] MEDS: SYMBICORT 160-4.5 MCG INHALER INHALATION SCH (07:36)
[2022-07-20] MEDS: SODIUM CHLORIDE 0.9% 1,000 ML IV SCH ×2 (08:55→09:06)
[2022-07-20] MEDS: TAMSULOSIN 0.4 MG CAP.ER.24H PO SCH ×2 (09:05→17:12)
[2022-07-20] MEDS: SENNOSIDES-DOCUSATE SODIUM 1 EACH TAB PO SCH ×2 (09:05→16:34)
[2022-07-20] MEDS: APIXABAN 5 MG TAB PO SCH ×2 (09:05→17:12)
[2022-07-20] MEDS: RIVASTIGMINE TARTRATE 3 MG PO SCH ×2 (09:06→17:36)
[2022-07-20 11:47] LABS: Glucose,Whole Blood 230 mg/dL (70-110)
[2022-07-20 13:34] VITALS: BMI 22.1
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
[2022-07-20] MEDS ORDERED: IPRATROPIUM-ALBUTEROL 3 ML NEB INHALATION PRN (14:52)
[2022-07-20] MEDS: IPRATROPIUM-ALBUTEROL 3 ML NEB INHALATION SCH ×2 (16:44→22:21)
[2022-07-20 16:51] LABS: Glucose,Whole Blood 151 mg/dL (70-110)
[2022-07-20] MEDS: methylPREDNISolone SOD SUCCI 40 MG/ML 1 ML VIAL IV SCH (17:12)
[2022-07-20 21:21] LABS: Glucose,Whole Blood 210 mg/dL (70-110)
[2022-07-20] MEDS: MONTELUKAST 10 MG TAB PO SCH (21:28)
[2022-07-20] MEDS: MIRTAZAPINE 15 MG TAB PO SCH (21:28)
[2022-07-20] MEDS: ATORVASTATIN 20 MG TAB PO SCH (21:28)
[2022-07-20] MEDS: METOPROLOL SUCCINATE (ER) 25 MG TAB.ER.24H PO SCH (21:28)
[2022-07-20] MEDS: FORMOTEROL FUMARATE 20 MCG/2 ML NEBU INHALATION SCH (22:20)
[2022-07-20] MEDS: BUDESONIDE 1 MG/2 ML NEBU INHALATION SCH (22:21)
[2022-07-21] MEDS: SODIUM CHLORIDE 0.9% 1,000 ML IV SCH ×2 (00:23→17:01)
[2022-07-21] MEDS: methylPREDNISolone SOD SUCCI 40 MG/ML 1 ML VIAL IV SCH ×4 (00:23→17:00)
[2022-07-21] MEDS: PIPERACILLIN-TAZOBACTAM 3.375 GM in SODIUM CHLORIDE 0.9% 100 ML IVPB SCH ×3 (01:59→17:00)
[2022-07-21] MEDS: PANTOPRAZOLE 40 MG TABLET PO SCH ×2 (06:01→16:56)
[2022-07-21 06:32] LABS: Glucose,Whole Blood 252 mg/dL (70-110)
[2022-07-21] MEDS: INSULIN ASPART (NovoLOG) 100 UNIT/ML VIAL SQ SCH ×4 (06:50→21:11)
[2022-07-21 08:28] LABS: Basophils % (A) 0 %; Eosinophils % (A) 0 %; HCT 38.9 % (39.0-53.0); HGB 12.3 gm/dL (13.0-17.5); Hypochromasia Slight; Lymphocytes # (A) 0.4 k/uL (1.0-4.8); Lymphocytes % (A) 5 %; MCH 30.1 pg (25.0-35.0); MCHC 31.6 g/dL (31.0-37.0); MCV 95.2 fL (80.0-100.0); Mean Platelet Volume 7.6; Monocytes # (A) 0.2 k/uL (0-1.0); Monocytes % (A) 2 %; Neutrophils % (A) 93 %; Platelet Count 391 k/uL (150-450); RBC 4.09 m/uL (4.30-5.90); RDW 12.7 % (11.5-15.5); WBC 7.6 k/uL (3.8-10.6)
[2022-07-21] MEDS: BUDESONIDE 1 MG/2 ML NEBU INHALATION SCH ×2 (08:48→20:47)
[2022-07-21] MEDS: IPRATROPIUM-ALBUTEROL 3 ML NEB INHALATION SCH ×4 (08:48→20:47)
[2022-07-21] MEDS: FORMOTEROL FUMARATE 20 MCG/2 ML NEBU INHALATION SCH ×2 (08:48→20:47)
[2022-07-21] MEDS: APIXABAN 5 MG TAB PO SCH ×2 (09:01→16:56)
[2022-07-21] MEDS: RIVASTIGMINE TARTRATE 3 MG PO SCH ×2 (09:02→16:56)
[2022-07-21] MEDS: TAMSULOSIN 0.4 MG CAP.ER.24H PO SCH ×2 (09:02→16:56)
[2022-07-21] MEDS: SENNOSIDES-DOCUSATE SODIUM 1 EACH TAB PO SCH ×2 (09:02→16:56)
[2022-07-21 09:44] LABS: African American GFR (CKD) >90 (>60 ml/min/1.73 sqM); Anion Gap 11 mmol/L; Blood Urea Nitrogen 23 mg/dL (9-20); Calcium 9.4 mg/dL (8.4-10.2); Carbon Dioxide 23 mmol/L (22-30); Chloride 101 mmol/L (98-107); Glucose 341 mg/dL (74-99); Non-African American GFR(CKD) 80 (>60 ml/min/1.73 sqM); Sodium 135 mmol/L (137-145)
[2022-07-21 09:48] LABS: Potassium 4.1 mmol/L (3.5-5.1)
[2022-07-21 11:51] LABS: Glucose,Whole Blood 544 mg/dL (70-110)
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
[2022-07-21] MEDS ORDERED: INSULIN DETEMIR (LEVEMIR) 100 UNIT/ML SYR SQ ONE (12:30)
--- NOTE | 2022-07-21 12:54 | CDI ---
Documentation Clarification Form Date: 07/21/2022 12:28:25 PM From: Ashley Rothman RN CCDS Phone: [phone] Admit Date: 07/18/2022 6:27:00 PM Patient Name: Kenroy Lovelace Visit Number: [id number] Discharge Date: ATTENTION: The Clinical Documentation Specialists (CDI) and [facility] Coding Staff appreciate your assistance in clarifying documentation. Please respond to the clarification below the line at the bottom and electronically sign. The CDI & [facility] Coding staff will review the response and follow-up if needed. Please note: Queries are made part of the Legal Health Record. If you have any questions, please contact the author of this message via ITS. Dr. Valdivia Your patient has the documented diagnosis of unspecified CHF 07/20, pulmonary consult. Additional information regarding the type, acuity of CHF is requested. History/Risk Factors: 82-year-old male presents with worsening shortness of breath, abdominal pain, nausea and vomiting. Medical History: Septic Knee joint, HTN, HLD, Heart Failure, COPD and DM2. 07/19, H&P. Clinical Indicators: Home Meds: Aldactone 12.5mg PO Daily; Toprol XL 25mg PO HS; Lasix 40mg PO Daily VS/Pulse OX: 07/20 B/P 100/62; HR 86; Temp 98.7 F Oral; RR 16; SpO2 3L nasal cannula BNP: 07/20 1040 Echocardiogram Results: 02/2022 EF 55% Normal LV size and systolic function. There is aortic valve sclerosis without stenosis. There is mild mitral annular calcification. Mild mitral and tricuspid insufficiency. No significant pulmonary hypertension. Chest X Ray: 07/19 Worsening bilateral lower lung opacities, right greater than left. On the right, changes now extend up to the mid lung level. Pulmonary consult, 07/20: Acute hypoxemic respiratory failure, likely multifactorial, in part related to fluid overload/CHF, and possibly pneumonia. Treatment: Toprol XL 25mg PO HS; In your professional opinion, can you please clarify the acuity and type of CHF if known? [ ] Acute Diastolic Heart Failure (preserved EF) [ ] Chronic Diastolic Heart Failure (preserved EF) [ ] Other, please specify [ ] Unable to determine (Template Last Revised: March 2020) Chronic Diastolic Heart Failure (preserved EF) MTDD
--- NOTE | 2022-07-21 13:05 | P.PN ---
Subjective Progress Note Date: 07/21/22 Principal diagnosis: Aspiration pneumonia Patient is a 82-year-old male with a past medical history significant for COPD diabetes mellitus hypertension hyperlipidemia recent admission to the hospital with a right knee pain and swelling concern for septic arthritis in th is patient who is status post I&D on 06/21/2022 , subsequent sent to the [facility] on IV antibiotic therapy presenting back to the hospital with vomiting, increasing respiratory distress and concern for right-sided pneumonia likely aspiration etiology. on today's evaluation that is 07/20/2022, the patient is afebrile this morning, the patient is more awake and alert he is up in the chair and is breathing comfortably on a 3 L nasal cannula oxygen, patient is eating his lunch no choking or further vomiting has been reported denies any chest pain no worsening cough and no diarrhea has been reported , Objective - Vital Signs Vital signs: Vital Signs Temp 97.7 F 07/21/22 07:07 Pulse 78 07/21/22 09:06 Resp 18 07/21/22 07:07 BP 121/63 07/21/22 07:07 Pulse Ox 97 07/21/22 08:48 FiO2 Intake & Output 07/20/22 07/21/22 07/21/22 18:59 06:59 18:59 Output Total 200 175 Balance -200 -175 Weight 73.936 kg Output: Urine 200 175 Other: Voiding Method Toilet Toilet Toilet Incontinent Incontinent Incontinent # Voids 2 # Bowel Movements 1 - Exam GENERAL DESCRIPTION: An elderly male up in the chair in no distress RESPIRATORY SYSTEM: Unlabored breathing , decreased breath sounds at bases HEART: S1 S2 regular rate and rhythm , ABDOMEN: Soft , no tenderness EXTREMITIES: Right knee incision remains to be healed minimal swelling no redness or warmth - Labs CBC & Chem 7: 07/21/22 07:56 07/21/22 07:56 Labs: Abnormal Lab Results - Last 24 Hours (Table) 07/20/22 07/20/22 07/20/22 Range/Units 11:45 16:50 21:17 RBC (4.30-5.90) m/uL Hgb (13.0-17.5) gm/dL Hct (39.0-53.0) % Lymphocytes # (1.0-4.8) k/uL Sodium (137-145) mmol/L BUN (9-20) mg/dL Glucose (74-99) mg/dL POC Glucose (mg/dL) 230 H 151 H 210 H (70-110) mg/dL 07/21/22 07/21/22 07/21/22 Range/Units 06:31 07:56 07:56 RBC 4.09 L (4.30-5.90) m/uL Hgb 12.3 L (13.0-17.5) gm/dL Hct 38.9 L (39.0-53.0) % Lymphocytes # 0.4 L (1.0-4.8) k/uL Sodium 135 L (137-145) mmol/L BUN 23 H (9-20) mg/dL Glucose 341 H (74-99) mg/dL POC Glucose (mg/dL) 252 H (70-110) mg/dL Microbiology - Last 24 Hours (Table) 07/18/22 14:05 Blood Culture - Preliminary Blood 07/18/22 13:50 Blood Culture - Preliminary Blood 07/19/22 17:10 Gram Stain - Preliminary Sputum Sputum Culture - Preliminary 07/19/22 17:10 Legionella Culture - Preliminary Sputum Assessment and Plan (1) Pneumonia Current Visit: Yes Status: Acute Code(s): J18.9 - PNEUMONIA, UNSPECIFIED ORGANISM SNOMED Code(s): 185011843 Plan: 1patient presented to hospital with increasing shortness of breath cough hypoxemia with evidence of bibasilar infiltrate with concern for possible aspiration pneumonia as the patient has been vomiting for a day or 2 before his respiratory symptoms got worse and no need to cover for the resistant gram- negative with the likely pathogen 2-patient with recent right knee septic arthritis status post I&D patient culture were negative at the time the patient was discharged subsequently grew Propionibacterium possible pathogen versus contaminant as the patient seemed to have shown clinical improvement as far as right knee is concerned without getting treatment for it 3-patient seemed to have had clinical improvement and will continue with the Zosyn while waiting for the sputum culture to be finalize Time with Patient: Less than 30
[2022-07-21 16:47] LABS: Glucose,Whole Blood 493 mg/dL (70-110)
[2022-07-21 20:45] LABS: Glucose,Whole Blood 466 mg/dL (70-110)
[2022-07-21] MEDS: ATORVASTATIN 20 MG TAB PO SCH (21:10)
[2022-07-21] MEDS: MONTELUKAST 10 MG TAB PO SCH (21:10)
[2022-07-21] MEDS: MIRTAZAPINE 15 MG TAB PO SCH (21:10)
[2022-07-21] MEDS: METOPROLOL SUCCINATE (ER) 25 MG TAB.ER.24H PO SCH (21:11)
[2022-07-22] MEDS: methylPREDNISolone SOD SUCCI 40 MG/ML 1 ML VIAL IV SCH ×4 (00:45→17:18)
[2022-07-22] MEDS: PIPERACILLIN-TAZOBACTAM 3.375 GM in SODIUM CHLORIDE 0.9% 100 ML IVPB SCH ×3 (00:45→18:38)
[2022-07-22 05:37] LABS: Glucose,Whole Blood 367 mg/dL (70-110)
[2022-07-22] MEDS: PANTOPRAZOLE 40 MG TABLET PO SCH ×2 (06:25→17:17)
[2022-07-22] MEDS: INSULIN ASPART (NovoLOG) 100 UNIT/ML VIAL SQ SCH ×6 (06:26→20:45)
--- NOTE | 2022-07-22 08:53 | XR ---
EXAMINATION TYPE: XR chest 1V portable DATE OF EXAM: 07/22/2022 Comparison: 07/19/2022 Clinical History: 82-year-old male CHF Findings: Left PICC tip at the cavoatrial junction. Heart remains mildly enlarged. Moderate to large right pleu ral effusion moderate right pleural effusion persists. Interstitial and patchy opacities also persist , particularly at the left base. Impression: Ongoing CHF with patchy bibasilar pulmonary edema along with a moderate right pleural effusion.
[2022-07-22] MEDS: BUDESONIDE 1 MG/2 ML NEBU INHALATION SCH ×2 (09:53→21:14)
[2022-07-22] MEDS: FORMOTEROL FUMARATE 20 MCG/2 ML NEBU INHALATION SCH ×2 (09:53→21:14)
[2022-07-22] MEDS: IPRATROPIUM-ALBUTEROL 3 ML NEB INHALATION SCH ×4 (09:53→21:14)
[2022-07-22] MEDS: TAMSULOSIN 0.4 MG CAP.ER.24H PO SCH ×2 (10:55→17:17)
[2022-07-22] MEDS: SENNOSIDES-DOCUSATE SODIUM 1 EACH TAB PO SCH ×2 (10:55→17:17)
[2022-07-22] MEDS: APIXABAN 5 MG TAB PO SCH ×2 (10:55→17:17)
[2022-07-22] MEDS: RIVASTIGMINE TARTRATE 3 MG PO SCH ×2 (10:56→17:26)
[2022-07-22 11:51] LABS: Glucose,Whole Blood 390 mg/dL (70-110)
[2022-07-22] MEDS ORDERED: INSULIN DETEMIR (LEVEMIR) 100 UNIT/ML SYR SQ STA (12:32)
--- NOTE | 2022-07-22 12:44 | P.PN ---
Subjective Progress Note Date: 07/22/22 Principal diagnosis: Aspiration pneumonia Patient is a 82-year-old male with a past medical history significant for COPD diabetes mellitus hypertension hyperlipidemia recent admission to the hospital with a right knee pain and swelling concern for septic arthritis in th is patient who is status post I&D on 06/21/2022 , subsequent sent to the halfway on IV antibiotic therapy presenting back to the hospital with vomiting, increasing respiratory distress and concern for right-sided pneumonia likely aspiration etiology. on today's evaluation that is 07/22/2022, the patient remains to be afebrile the patient is breathing comfortably on a 3 L nasal cannula oxygen, no further nausea or vomiting has been reported, the patient been tolerating his diet and no diarrhea has been reported , Objective - Vital Signs Vital signs: Vital Signs Temp 97.9 F 07/22/22 07:02 Pulse 78 07/22/22 10:03 Resp 17 07/22/22 07:02 BP 134/80 07/22/22 07:02 Pulse Ox 97 07/22/22 09:54 FiO2 Intake & Output 07/21/22 07/22/22 07/22/22 18:59 06:59 18:59 Output Total 175 300 Balance -175 -300 Output: Urine 175 300 Other: Voiding Method Toilet Toilet Incontinent Incontinent # Bowel Movements 1 - Exam GENERAL DESCRIPTION: An elderly male up in the chair in no distress RESPIRATORY SYSTEM: Unlabored breathing , decreased breath sounds at bases HEART: S1 S2 regular rate and rhythm , ABDOMEN: Soft , no tenderness EXTREMITIES: Right knee incision remains to be healed minimal swelling no redness or warmth - Labs CBC & Chem 7: 07/21/22 07:56 07/22/22 06:24 Labs: Abnormal Lab Results - Last 24 Hours (Table) 07/21/22 07/21/22 07/21/22 Range/Units 11:50 16:45 20:44 POC Glucose (mg/dL) 544 H 493 H 466 H (70-110) mg/dL 07/22/22 Range/Units 05:35 POC Glucose (mg/dL) 367 H (70-110) mg/dL Microbiology - Last 24 Hours (Table) 07/18/22 14:05 Blood Culture - Preliminary Blood 07/18/22 13:50 Blood Culture - Preliminary Blood 07/19/22 17:10 Gram Stain - Final Sputum Sputum Culture - Final Pseudomonas aeruginosa Meenakshi albicans Assessment and Plan (1) Pneumonia Current Visit: Yes Status: Acute Code(s): J18.9 - PNEUMONIA, UNSPECIFIED ORGANISM SNOMED Code(s): 658422164 Plan: 1patient presented to hospital with increasing shortness of breath cough hypoxemia with evidence of bibasilar infiltrate with concern for possible aspiration pneumonia as the patient has been vomiting for a day or 2 before his respiratory symptoms got worse and no need to cover for the resistant gram-negative, sputum has been finalized the Pseudomonas that is sensitive to Zosyn 2-patient has shown some clinical improvement , the patient to continue with the Zosyn and monitor clinical course closely and at the bedside questions were answered Time with Patient: Less than 30
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
[2022-07-22 16:36] LABS: Glucose,Whole Blood >600 mg/dL (70-110)
[2022-07-22] MEDS ORDERED: INSULIN ASPART (NovoLOG) 100 UNIT/ML VIAL SQ ONE (17:14)
[2022-07-22] MEDS: SODIUM CHLORIDE 0.9% 1,000 ML IV SCH (17:18)
[2022-07-22 19:51] LABS: Glucose,Whole Blood 445 mg/dL (70-110)
[2022-07-22] MEDS: MIRTAZAPINE 15 MG TAB PO SCH (20:45)
[2022-07-22] MEDS: MONTELUKAST 10 MG TAB PO SCH (20:45)
[2022-07-22] MEDS: METOPROLOL SUCCINATE (ER) 25 MG TAB.ER.24H PO SCH (20:45)
[2022-07-22] MEDS: NYSTATIN 100,000 UNIT/GM POWD 15 GM TOPICAL SCH (20:45)
[2022-07-22] MEDS: ATORVASTATIN 20 MG TAB PO SCH (20:45)
[2022-07-23] MEDS ORDERED: INSULIN DETEMIR (LEVEMIR) 100 UNIT/ML SYR SQ ONE (00:15)
--- NOTE | 2022-07-23 00:19 | P.PN ---
Subjective Progress Note Date: 07/20/22 history of present illness;patient is 82 years old male with a past medical history significant for atrial fibrillation ,heart failure, COPD, diabetes mellitus, hyperlipidemia, hypertension,septic knee who was sent in from skilled nursing because of worsening shortness of breath .patient was recently admitted for right knee septic joint under service of orthopedic team of Dr. Wellington and underwent washout and incision and drainage. Infectious disease team was also on the case patient was discharged on IV antibiotics. Patient has been complaining of worsening shortness of breath for the last day. Patient was also complaining of nausea and vomiting. Patient also complaining of abdominal pain. There was no complain of fever or chills. Patient was complainingof lethargy and weakness. Initial lab work done in the ER showed white count 6.4, hemoglobin 12.4, platelet count 419, sodium 134, potassium 4.3, BUN 32, creatinine 1.19, initial lactic acid was 4.2, initial chest x-ray done showed interval development of bibasilar infiltrates with small to moderate right and minimal left pleural effusion Patient was admitted to internal medicine service 07/20/2022 Patient is currently lying in the bed. Lethargic and weak. Could not provide any history. Patient's is at bedside. Still having shortness of breath and requiring oxygen at 3 L via nasal cannula. Patient has been afebrile. C ontinued on antibiotics in the form of Zosyn. Laboratory data showed creatinine 0.85, A1c 8.1. Procalcitonin level is 0.61 and CRP 17.8. ID is on board and pulmonary was consulted. Current medications reviewed. REVIEW OF SYSTEMS: Complete review of systems could not be obtained from the patient. PHYSICAL EXAMINATION: GENERAL: The patient is alert and oriented x3, not in any acute distress. Well developed, well nourished. HEENT: Pupils are round and equally reacting to light. EOMI. No scleral icterus. No conjunctival pallor. Normocephalic, atraumatic. No pharyngeal erythema. No thyromegaly. CARDIOVASCULAR: S1 and S2 present. No murmurs, rubs, or gallops. PULMONARY: Coarse Breath sounds bilaterally no wheezing or crackles. ABDOMEN: Soft, nontender, nondistended, normoactive bowel sounds. No palpable organomegaly. MUSCULOSKELETAL: No joint swelling or deformity. Right knee surgical incision seen EXTREMITIES: No cyanosis, clubbing, or pedal edema. NEUROLOGICAL: Gross neurological examination did not reveal any focal deficits. SKIN: No rashes. Assessment and plan Acute hypoxic respiratory failure likely due to bilateral worsening lower lung opacities with possible aspiration pneumonia. Requiring oxygen at 3 L via nasal cannula. Sepsis secondary to above history of Right knee septic arthritis status post I&D and wound VAC history of Staphylococcus Lugdunenisis bacteremia Paroxysmal atrial fibrillation on anticoagulation with Eliquis. Previous history of ablation. hypertension Hyperlipidemia Diabetes mellitus COPD BPH Dementia DVT prophylaxis. Patient is already on Eliquis. monitor vital signs Monitor CBC Monitor CMP Blood cultures negative. Sputum culture was sent. Continue IV Zosyn, DC'd vancomycin and azithromycin. ID and orthopedic surgery is on board. Pulmonary consult for evaluation. Consult PT and OT evaluation Resume home meds monitor blood sugar levels, continue sliding scale insulin hold blood pressure medications for now,as patient was hypotensive at the skilled nursing, reintroduce blood pressure medications as tolerated. Prognosis guarded. Discussed with his at bedside in detail. Objective - Vital Signs Vital signs: Vital Signs Temp 98.2 F 07/20/22 19:45 Pulse 72 07/20/22 22:23 Resp 16 07/20/22 19:45 BP 114/74 07/20/22 19:45 Pulse Ox 96 07/20/22 19:45 FiO2 Intake & Output 07/20/22 07/20/22 07/21/22 06:59 18:59 06:59 Output Total 1000 200 Balance -1000 -200 Weight 73.936 kg Output: Urine 1000 200 Other: Voiding Method Urinal Toilet Incontinent # Voids 2 # Bowel Movements 1 - Labs CBC & Chem 7: 07/21/22 07:56 07/22/22 06:24 Labs: Abnormal Lab Results - Last 24 Hours (Table) 07/20/22 07/20/22 07/20/22 Range/Units 05:11 06:16 11:45 POC Glucose (mg/dL) 161 H 230 H (70-110) mg/dL Hemoglobin A1c 8.1 H (0.0-6.0) % 07/20/22 07/20/22 Range/Units 16:50 21:17 POC Glucose (mg/dL) 151 H 210 H (70-110) mg/dL Hemoglobin A1c (0.0-6.0) % Microbiology - Last 24 Hours (Table) 07/18/22 14:05 Blood Culture - Preliminary Blood 07/18/22 13:50 Blood Culture - Preliminary Blood 07/19/22 17:10 Sputum Culture - Preliminary Sputum
[2022-07-23] MEDS: methylPREDNISolone SOD SUCCI 40 MG/ML 1 ML VIAL IV SCH ×5 (00:31→23:30)
--- NOTE | 2022-07-23 00:31 | P.PN ---
Subjective Progress Note Date: 07/21/22 history of present illness;patient is 82 years old male with a past medical history significant for atrial fibrillation ,heart failure, COPD, diabetes mellitus, hyperlipidemia, hypertension,septic knee who was sent in from senior care because of worsening shortness of breath .patient was recently admitted for right knee septic joint under service of orthopedic team of Dr. Wellington and underwent washout and incision and drainage. Infectious disease team was also on the case patient was discharged on IV antibiotics. Patient has been complaining of worsening shortness of breath for the last day. Patient was also complaining of nausea and vomiting. Patient also complaining of abdominal pain. There was no complain of fever or chills. Patient was complainingof lethargy and weakness. Initial lab work done in the ER showed white count 6.4, hemoglobin 12.4, platelet count 419, sodium 134, potassium 4.3, BUN 32, creatinine 1.19, initial lactic acid was 4.2, initial chest x-ray done showed interval development of bibasilar infiltrates with small to moderate right and minimal left pleural effusion Patient was admitted to internal medicine service 07/20/2022 Patient is currently lying in the bed. Lethargic and weak. Could not provide any history. Patient's is at bedside. Still having shortness of breath and requiring oxygen at 3 L via nasal cannula. Patient has been afebrile. C ontinued on antibiotics in the form of Zosyn. Laboratory data showed creatinine 0.85, A1c 8.1. Procalcitonin level is 0.61 and CRP 17.8. ID is on board and pulmonary was consulted. 07/21/2022 Patient is currently resting in bed. Awake alert but could not provide any history. Currently requiring oxygen at 3 L via nasal cannula. Patient has been afebrile. No nausea vomiting abdominal pain or diarrhea. No cough or sputum production. Patient is otherwise lethargic. Sputum culture showed Pseudomonas and Meenakshi albicans. Patient is currently on Zosyn. Patient is also on IV Solu-Medrol 40 mg every 6 hourly and DuoNebs. Pulmonary and ID is on board. Patient is also on IV hydration with normal saline at 50 cc/h. Chest x-ray this morning showed ongoing CHF with patchy bibasilar pulmonary edema along with a moderate right pleural effusion. Laboratory data showed WBC 7.6 hemoglobin 12.3 and platelets 391 Sodium 135 potassium 4.1 chloride 101 bicarb is 23 BUN 23 and creatinine 0.86 and blood sugar is 341. Current medications reviewed. REVIEW OF SYSTEMS: Complete review of systems could not be obtained from the patient. PHYSICAL EXAMINATION: GENERAL: The patient is alert and oriented x2-3, not in any acute distress. Well developed, well nourished. Patient is lethargic and weak. HEENT: Pupils are round and equally reacting to light. EOMI. No scleral icterus. No conjunctival pallor. Normocephalic, atraumatic. No pharyngeal erythema. No thyromegaly. CARDIOVASCULAR: S1 and S2 present. No murmurs, rubs, or gallops. PULMONARY: Coarse Breath sounds bilaterally no wheezing or crackles. ABDOMEN: Soft, nontender, nondistended, normoactive bowel sounds. No palpable organomegaly. MUSCULOSKELETAL: No joint swelling or deformity. Right knee surgical incision seen EXTREMITIES: No cyanosis, clubbing, or pedal edema. NEUROLOGICAL: Gross neurological examination did not reveal any focal deficits. SKIN: No rashes. Assessment and plan Acute hypoxic respiratory failure is multifactorial related to volume overload and possible aspiration pneumonia is being considered... Requiring oxygen at 3 L via nasal cannula. Sputum culture is growing Pseudomonas and Meenakshi. Sepsis secondary to above Hyperglycemia likely due to steroids. history of Right knee septic arthritis status post I&D and wound VAC history of Staphylococcus Lugdunenisis bacteremia Paroxysmal atrial fibrillation on anticoagulation with Eliquis. Previous history of ablation. hypertension Hyperlipidemia Diabetes mellitus COPD BPH Dementia DVT prophylaxis. Patient is already on Eliquis. monitor vital signs Monitor CBC Monitor CMP Blood cultures negative. Sputum culture was sent. Continue IV Zosyn, DC'd vancomycin and azithromycin. Patient was started on IV Solu-Medrol 40 mg every 6 hourly. Pulmonary is on board. Continue the DuoNebs. ID and orthopedic surgery is on board. Consult PT and OT evaluation Resume home meds monitor blood sugar levels, continue sliding scale insulin hold blood pressure medications for now,as patient was hypotensive at the senior care, reintroduce blood pressure medications as tolerated. Prognosis guarded. Discussed with his at bedside in detail. Objective - Vital Signs Vital signs: Vital Signs Temp 97.5 F L 07/21/22 13:49 Pulse 76 07/21/22 15:58 Resp 18 07/21/22 13:49 BP 137/68 07/21/22 13:49 Pulse Ox 96 07/21/22 13:49 FiO2 Intake & Output 07/20/22 07/21/22 07/21/22 18:59 06:59 18:59 Output Total 200 175 Balance -200 -175 Weight 73.936 kg Output: Urine 200 175 Other: Voiding Method Toilet Toilet Toilet Incontinent Incontinent Incontinent # Voids 2 # Bowel Movements 1 - Labs CBC & Chem 7: 07/21/22 07:56 07/22/22 06:24 Labs: Abnormal Lab Results - Last 24 Hours (Table) 07/20/22 07/21/22 07/21/22 Range/Units 21:17 06:31 07:56 RBC (4.30-5.90) m/uL Hgb (13.0-17.5) gm/dL Hct (39.0-53.0) % Lymphocytes # (1.0-4.8) k/uL Sodium 135 L (137-145) mmol/L BUN 23 H (9-20) mg/dL Glucose 341 H (74-99) mg/dL POC Glucose (mg/dL) 210 H 252 H (70-110) mg/dL 07/21/22 07/21/22 07/21/22 Range/Units 07:56 11:50 16:45 RBC 4.09 L (4.30-5.90) m/uL Hgb 12.3 L (13.0-17.5) gm/dL Hct 38.9 L (39.0-53.0) % Lymphocytes # 0.4 L (1.0-4.8) k/uL Sodium (137-145) mmol/L BUN (9-20) mg/dL Glucose (74-99) mg/dL POC Glucose (mg/dL) 544 H 493 H (70-110) mg/dL Microbiology - Last 24 Hours (Table) 07/19/22 17:10 Gram Stain - Preliminary Sputum Sputum Culture - Preliminary Gram Neg Bacilli Meenakshi albicans 07/18/22 14:05 Blood Culture - Preliminary Blood 07/18/22 13:50 Blood Culture - Preliminary Blood 07/19/22 17:10 Legionella Culture - Preliminary Sputum
--- NOTE | 2022-07-23 00:36 | P.PN ---
Subjective Progress Note Date: 07/22/22 Patient is 82 years old male with a past medical history significant for atrial fibrillation ,heart failure, COPD, diabetes mellitus, hyperlipidemia, hypertension,septic knee who was sent in from retirement because of worsening shortness of breath .patient was recently admitted for right knee septic joint under service of orthopedic team of Dr. Wellington and underwent washout and incision and drainage. Infectious disease team was also on the case patient was discharged on IV antibiotics. Patient has been complaining of worsening shortness of breath for the last day. Patient was also complaining of nausea and vomiting. Patient also complaining of abdominal pain. There was no complain of fever or chills. Patient was complainingof lethargy and weakness. Initial lab work done in the ER showed white count 6.4, hemoglobin 12.4, platelet count 419, sodium 134, potassium 4.3, BUN 32, creatinine 1.19, initial lactic acid was 4.2, initial chest x-ray done showed interval development of bibasilar infiltrates with small to moderate right and minimal left pleural effusion Patient was admitted to internal medicine service 07/20/2022 Patient is currently lying in the bed. Lethargic and weak. Could not provide any history. Patient's is at bedside. Still having shortness of breath and requiring oxygen at 3 L via nasal cannula. Patient has been afebrile. Continued on antibiotics in the form of Zosyn. Laboratory data showed creatinine 0.85, A1c 8.1. Procalcitonin level is 0.61 and CRP 17.8. ID is on board and pulmonary was consulted. 07/21/2022 Patient is currently resting in bed. Awake alert but could not provide any history. Currently requiring oxygen at 3 L via nasal cannula. Patient has been afebrile. No nausea vomiting abdominal pain or diarrhea. No cough or sputum production. Patient is otherwise lethargic. Sputum culture showed Pseudomonas and Meenakshi albicans. Patient is currently on Zosyn. Patient is also on IV Solu-Medrol 40 mg every 6 hourly and DuoNebs. Pulmonary and ID is on board. Patient is also on IV hydration with normal saline at 50 cc/h. Chest x-ray this morning showed ongoing CHF with patchy bibasilar pulmonary edema along with a moderate right pleural effusion. Laboratory data showed WBC 7.6 hemoglobin 12.3 and platelets 391 Sodium 135 potassium 4.1 chloride 101 bicarb is 23 BUN 23 and creatinine 0.86 and blood sugar is 341. 07/22/2022 Patient is currently sitting In the chair. Seems to be more awake and oriented today. Oxygen titrated down to room air this afternoon. Patient has been afebrile. No nausea vomiting abdominal pain or diarrhea. Patient is being continued on IV Solu-Medrol and DuoNebs and also on antibiotics involve Zosyn. Patient is on anticoagulation with Eliquis. Patient seems to be depressed as per his . Currently on Remeron. Blood sugar is elevated to greater than 600 likely to IV steroids. Continue with insulin regimen and titrate dose. A1c 8.1. Laboratory data showed creatinine 0.99. ID and pulmonary is on board. Current medications reviewed. REVIEW OF SYSTEMS: Complete review of systems could not be obtained from the patient except as above. PHYSICAL EXAMINATION: GENERAL: The patient is alert and oriented x2-3, not in any acute distress. Well developed, well nourished. Patient is lethargic and weak. HEENT: Pupils are round and equally reacting to light. EOMI. No scleral icterus. No conjunctival pallor. Normocephalic, atraumatic. No pharyngeal erythema. No thyromegaly. CARDIOVASCULAR: S1 and S2 present. No murmurs, rubs, or gallops. PULMONARY: Coarse Breath sounds bilaterally no wheezing or crackles. ABDOMEN: Soft, nontender, nondistended, normoactive bowel sounds. No palpable organomegaly. MUSCULOSKELETAL: No joint swelling or deformity. Right knee surgical incision seen EXTREMITIES: No cyanosis, clubbing, or pedal edema. NEUROLOGICAL: Gross neurological examination did not reveal any focal deficits. SKIN: No rashes. Assessment and plan Acute hypoxic respiratory failure is multifactorial related to volume overload and pneumonia-aspiration is being considered... Requiring oxygen at 3 L via nasal cannula. Sputum culture is growing Pseudomonas and Meenakshi. titrate down to RA Sepsis secondary to above Hyperglycemia likely due to steroids. history of Right knee septic arthritis status post I&D and wound VAC history of Staphylococcus Lugdunenisis bacteremia Paroxysmal atrial fibrillation on anticoagulation with Eliquis. Previous history of ablation. hypertension Hyperlipidemia Diabetes mellitusn A1c 8.1. COPD BPH Dementia DVT prophylaxis. Patient is already on Eliquis. monitor vital signs Monitor CBC Monitor CMP Blood cultures negative. Sputum culture was sent. Continue IV Zosyn, DC'd vancomycin and azithromycin. Patient was started on IV Solu-Medrol 40 mg every 6 hourly. Pulmonary is on board. Continue the DuoNebs. ID and orthopedic surgery is on board. Consult PT and OT evaluation Resume home meds monitor blood sugar levels, continue sliding scale insulin hold blood pressure medications for now,as patient was hypotensive at the retirement, reintroduce blood pressure medications as tolerated. Prognosis guarded. Discussed with his at bedside in detail. Objective - Vital Signs Vital signs: Vital Signs Temp 97.4 F L 07/22/22 19:17 Pulse 76 07/22/22 21:22 Resp 18 07/22/22 19:17 BP 124/64 07/22/22 19:17 Pulse Ox 97 07/22/22 19:17 FiO2 Intake & Output 07/22/22 07/22/22 07/23/22 06:59 18:59 06:59 Output Total 300 400 Balance -300 -400 Weight 73.936 kg Output: Urine 300 400 Other: Voiding Method Toilet Toilet Incontinent # Bowel Movements 0 - Labs CBC & Chem 7: 07/21/22 07:56 07/22/22 06:24 Labs: Abnormal Lab Results - Last 24 Hours (Table) 07/22/22 07/22/22 07/22/22 Range/Units 05:35 11:50 16:35 POC Glucose (mg/dL) 367 H 390 H >600 H (70-110) mg/dL 07/22/22 Range/Units 19:51 POC Glucose (mg/dL) 445 H (70-110) mg/dL Microbiology - Last 24 Hours (Table) 07/18/22 14:05 Blood Culture - Preliminary Blood 07/18/22 13:50 Blood Culture - Preliminary Blood 07/19/22 17:10 Gram Stain - Final Sputum Sputum Culture - Final Pseudomonas aeruginosa Meenakshi albicans
[2022-07-23] MEDS: SODIUM CHLORIDE 0.9% 500 ML 500 ML IV SCH ×2 (01:05→23:33)
[2022-07-23] MEDS: PIPERACILLIN-TAZOBACTAM 3.375 GM in SODIUM CHLORIDE 0.9% 100 ML IVPB SCH ×3 (01:13→17:59)
[2022-07-23] MEDS: PANTOPRAZOLE 40 MG TABLET PO SCH ×2 (05:58→18:00)
[2022-07-23 06:00] LABS: Glucose,Whole Blood 254 mg/dL (70-110)
[2022-07-23] MEDS: BUDESONIDE 1 MG/2 ML NEBU INHALATION SCH ×2 (08:18→20:15)
[2022-07-23] MEDS: IPRATROPIUM-ALBUTEROL 3 ML NEB INHALATION SCH ×4 (08:18→20:15)
[2022-07-23] MEDS: INSULIN ASPART (NovoLOG) 100 UNIT/ML VIAL SQ SCH ×7 (08:25→20:48)
[2022-07-23] MEDS: SENNOSIDES-DOCUSATE SODIUM 1 EACH TAB PO SCH ×2 (08:25→18:00)
[2022-07-23] MEDS: TAMSULOSIN 0.4 MG CAP.ER.24H PO SCH ×2 (08:25→18:00)
[2022-07-23] MEDS: NYSTATIN 100,000 UNIT/GM POWD 15 GM TOPICAL SCH ×2 (08:25→23:31)
[2022-07-23] MEDS: APIXABAN 5 MG TAB PO SCH ×2 (08:25→18:00)
[2022-07-23] MEDS: FORMOTEROL FUMARATE 20 MCG/2 ML NEBU INHALATION SCH ×2 (08:34→20:15)
[2022-07-23 10:26] LABS: African American GFR (CKD) 71.6 (60.0-200.0); Anion Gap 11.1 mmol/L (10.00-18.00); BUN/Creat Ratio 26.82 Ratio (12.00-20.00); Blood Urea Nitrogen 29.5 mg/dL (9.0-27.0); Calcium 10.1 mg/dL (8.7-10.3); Carbon Dioxide 27.9 mmol/L (20.0-27.5); Non-African American GFR(CKD) 61.8 (60.0-200.0); Potassium 4.7 mmol/L (3.5-5.5)
[2022-07-23 10:32] LABS: Basophils # (A) 0 X 10*3/uL (0.00-0.10); Basophils % (A) 0 %; Eosinophils # (A) 0 X 10*3/uL (0.04-0.35); Eosinophils % (A) 0 %; HCT 34.4 % (39.6-50.0); HGB 10.7 g/dL (13.0-17.0); Immature Grans, Automated 0.4 %; Lymphocytes # (A) 0.48 X 10*3/uL (0.90-5.00); Lymphocytes % (A) 4.3 %; MCH 28.9 pg (27.0-32.0); MCHC 31.1 g/dL (32.0-37.0); Mean Platelet Volume 10.3 fL (9.5-12.2); Monocytes # (A) 0.53 X 10*3/uL (0.20-1.00); Monocytes % (A) 4.8 %; NRBC Per 100 WBC 0 /100 WBCS (0.0-0.0); Neutrophils # (A) 10.06 X 10*3/uL (1.80-7.70); Neutrophils % (A) 90.5 %; Platelet Count 375 X 10*3/uL (140-440); RDW 13.3 % (11.5-14.5); WBC 11.12 X 10*3/uL (4.50-10.00)
[2022-07-23 11:26] LABS: Glucose,Whole Blood 260 mg/dL (70-110)
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
[2022-07-23] MEDS: RIVASTIGMINE TARTRATE 3 MG PO SCH ×2 (15:35→18:00)
[2022-07-23 16:41] LABS: Glucose,Whole Blood 233 mg/dL (70-110)
[2022-07-23 20:09] LABS: Glucose,Whole Blood 269 mg/dL (70-110)
[2022-07-23] MEDS: METOPROLOL SUCCINATE (ER) 25 MG TAB.ER.24H PO SCH (20:47)
[2022-07-23] MEDS: ATORVASTATIN 20 MG TAB PO SCH (20:48)
[2022-07-23] MEDS: INSULIN DETEMIR (LEVEMIR) 100 UNIT/ML SYR SQ SCH (20:48)
[2022-07-23] MEDS: MONTELUKAST 10 MG TAB PO SCH (20:48)
[2022-07-23] MEDS: MIRTAZAPINE 15 MG TAB PO SCH (20:48)
[2022-07-24] MEDS: PIPERACILLIN-TAZOBACTAM 3.375 GM in SODIUM CHLORIDE 0.9% 100 ML IVPB SCH ×3 (02:03→17:26)
[2022-07-24 06:03] LABS: Glucose,Whole Blood 115 mg/dL (70-110)
[2022-07-24] MEDS: PANTOPRAZOLE 40 MG TABLET PO SCH ×2 (06:07→17:27)
[2022-07-24] MEDS: INSULIN ASPART (NovoLOG) 100 UNIT/ML VIAL SQ SCH ×7 (06:07→20:52)
[2022-07-24] MEDS: methylPREDNISolone SOD SUCCI 40 MG/ML 1 ML VIAL IV SCH ×4 (06:08→23:49)
[2022-07-24] MEDS: BUDESONIDE 1 MG/2 ML NEBU INHALATION SCH ×2 (07:58→20:26)
[2022-07-24] MEDS: FORMOTEROL FUMARATE 20 MCG/2 ML NEBU INHALATION SCH ×2 (07:58→20:26)
[2022-07-24] MEDS: IPRATROPIUM-ALBUTEROL 3 ML NEB INHALATION SCH ×4 (07:58→20:26)
[2022-07-24] MEDS: TAMSULOSIN 0.4 MG CAP.ER.24H PO SCH ×2 (08:28→17:27)
[2022-07-24] MEDS: APIXABAN 5 MG TAB PO SCH ×2 (08:28→17:27)
[2022-07-24] MEDS: SENNOSIDES-DOCUSATE SODIUM 1 EACH TAB PO SCH ×2 (08:28→17:27)
[2022-07-24] MEDS: RIVASTIGMINE TARTRATE 3 MG PO SCH ×2 (08:29→17:29)
[2022-07-24] MEDS: NYSTATIN 100,000 UNIT/GM POWD 15 GM TOPICAL SCH ×2 (08:29→20:56)
[2022-07-24 09:24] LABS: African American GFR (CKD) 91.2 (60.0-200.0); Anion Gap 6.9 mmol/L (10.00-18.00); BUN/Creat Ratio 28.33 Ratio (12.00-20.00); Blood Urea Nitrogen 25.5 mg/dL (9.0-27.0); Calcium 10.4 mg/dL (8.7-10.3); Carbon Dioxide 28.1 mmol/L (20.0-27.5); Non-African American GFR(CKD) 78.7 (60.0-200.0); Potassium 4.4 mmol/L (3.5-5.5)
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
[2022-07-24 11:19] LABS: Basophils # (A) 0.01 X 10*3/uL (0.00-0.10); Basophils % (A) 0.1 %; Eosinophils # (A) 0 X 10*3/uL (0.04-0.35); Eosinophils % (A) 0 %; HCT 35.1 % (39.6-50.0); HGB 11.2 g/dL (13.0-17.0); Immature Grans, Automated 0.5 %; Lymphocytes # (A) 0.59 X 10*3/uL (0.90-5.00); MCH 29.2 pg (27.0-32.0); MCHC 31.9 g/dL (32.0-37.0); MCV 91.6 fL (80.0-97.0); Monocytes # (A) 0.48 X 10*3/uL (0.20-1.00); Monocytes % (A) 4.1 %; NRBC Per 100 WBC 0 /100 WBCS (0.0-0.0); Neutrophils # (A) 10.71 X 10*3/uL (1.80-7.70); Neutrophils % (A) 90.3 %; Platelet Count 410 X 10*3/uL (140-440); RBC 3.83 X 10*6/uL (4.40-5.60); RDW 13.3 % (11.5-14.5); WBC 11.85 X 10*3/uL (4.50-10.00)
[2022-07-24 11:27] LABS: Glucose,Whole Blood 279 mg/dL (70-110)
[2022-07-24 16:30] LABS: Glucose,Whole Blood 283 mg/dL (70-110)
[2022-07-24 20:21] LABS: Glucose,Whole Blood 259 mg/dL (70-110)
[2022-07-24] MEDS: INSULIN DETEMIR (LEVEMIR) 100 UNIT/ML SYR SQ SCH (20:52)
[2022-07-24] MEDS: ATORVASTATIN 20 MG TAB PO SCH (20:53)
[2022-07-24] MEDS: MIRTAZAPINE 15 MG TAB PO SCH (20:53)
[2022-07-24] MEDS: MONTELUKAST 10 MG TAB PO SCH (20:53)
[2022-07-24] MEDS: METOPROLOL SUCCINATE (ER) 25 MG TAB.ER.24H PO SCH (20:53)
[2022-07-24] MEDS: SODIUM CHLORIDE 0.9% 500 ML 500 ML IV SCH (23:50)
[2022-07-25] MEDS: PIPERACILLIN-TAZOBACTAM 3.375 GM in SODIUM CHLORIDE 0.9% 100 ML IVPB SCH ×3 (02:18→18:19)
--- NOTE | 2022-07-25 03:27 | P.PN ---
Subjective Progress Note Date: 07/23/22 Patient is 82 years old male with a past medical history significant for atrial fibrillation ,heart failure, COPD, diabetes mellitus, hyperlipidemia, hypertension,septic knee who was sent in from assisted because of worsening shortness of breath .patient was recently admitted for right knee septic joint under service of orthopedic team of Dr. Wellington and underwent washout and incision and drainage. Infectious disease team was also on the case patient was discharged on IV antibiotics. Patient has been complaining of worsening shortness of breath for the last day. Patient was also complaining of nausea and vomiting. Patient also complaining of abdominal pain. There was no complain of fever or chills. Patient was complainingof lethargy and weakness. Initial lab work done in the ER showed white count 6.4, hemoglobin 12.4, platelet count 419, sodium 134, potassium 4.3, BUN 32, creatinine 1.19, initial lactic acid was 4.2, initial chest x-ray done showed interval development of bibasilar infiltrates with small to moderate right and minimal left pleural effusion Patient was admitted to internal medicine service 07/20/2022 Patient is currently lying in the bed. Lethargic and weak. Could not provide any history. Patient's is at bedside. Still having shortness of breath and requiring oxygen at 3 L via nasal cannula. Patient has been afebrile. Continued on antibiotics in the form of Zosyn. Laboratory data showed creatinine 0.85, A1c 8.1. Procalcitonin level is 0.61 and CRP 17.8. ID is on board and pulmonary was consulted. 07/21/2022 Patient is currently resting in bed. Awake alert but could not provide any history. Currently requiring oxygen at 3 L via nasal cannula. Patient has been afebrile. No nausea vomiting abdominal pain or diarrhea. No cough or sputum production. Patient is otherwise lethargic. Sputum culture showed Pseudomonas and Meenakshi albicans. Patient is currently on Zosyn. Patient is also on IV Solu-Medrol 40 mg every 6 hourly and DuoNebs. Pulmonary and ID is on board. Patient is also on IV hydration with normal saline at 50 cc/h. Chest x-ray this morning showed ongoing CHF with patchy bibasilar pulmonary edema along with a moderate right pleural effusion. Laboratory data showed WBC 7.6 hemoglobin 12.3 and platelets 391 Sodium 135 potassium 4.1 chloride 101 bicarb is 23 BUN 23 and creatinine 0.86 and blood sugar is 341. 07/22/2022 Patient is currently sitting In the chair. Seems to be more awake and oriented today. Oxygen titrated down to room air this afternoon. Patient has been afebrile. No nausea vomiting abdominal pain or diarrhea. Patient is being continued on IV Solu-Medrol and DuoNebs and also on antibiotics involve Zosyn. Patient is on anticoagulation with Eliquis. Patient seems to be depressed as per his . Currently on Remeron. Blood sugar is elevated to greater than 600 likely to IV steroids. Continue with insulin regimen and titrate dose. A1c 8.1. Laboratory data showed creatinine 0.99. ID and pulmonary is on board. 07/23/2022 Patient is currently lying in the bed. Awake alert and oriented. Slow to respond. No complaints of chest pain or worsening shortness of breath. Currently on 3 L oxygen via nasal cannula. Patient is being continued on antibiotics in the form of Zosyn. Culture showed Pseudomonas aeruginosa. Laboratory data showed WBC 11.1 hemoglobin 10.7 and platelets 375 BUN 29.5 and creatinine 1.1 and blood sugar is 208. Patient is being continued on IV steroids Solu-Medrol 40 mg every 6 hourly. Continue with insulin regimen. Pulmonary and ID is on board. Current medications reviewed. REVIEW OF SYSTEMS: Complete review of systems could not be obtained from the patient except as above. PHYSICAL EXAMINATION: GENERAL: The patient is alert and oriented x2-3, not in any acute distress. Well developed, well nourished. Patient is lethargic and weak. HEENT: Pupils are round and equally reacting to light. EOMI. No scleral icterus. No conjunctival pallor. Normocephalic, atraumatic. No pharyngeal erythema. No th yromegaly. CARDIOVASCULAR: S1 and S2 present. No murmurs, rubs, or gallops. PULMONARY: Coarse Breath sounds bilaterally no wheezing or crackles. ABDOMEN: Soft, nontender, nondistended, normoactive bowel sounds. No palpable organomegaly. MUSCULOSKELETAL: No joint swelling or deformity. Right knee surgical incision seen EXTREMITIES: No cyanosis, clubbing, or pedal edema. NEUROLOGICAL: Gross neurological examination did not reveal any focal deficits. SKIN: No rashes. Assessment and plan Acute hypoxic respiratory failure is multifactorial related to volume overload and pneumonia-aspiration is being considered... Requiring oxygen at 3 L via nasal cannula. Sputum culture is growing Pseudomonas and Meenakshi. titrate down to RA Sepsis secondary to above Hyperglycemia likely due to steroids. history of Right knee septic arthritis status post I&D and wound VAC history of Staphylococcus Lugdunenisis bacteremia Paroxysmal atrial fibrillation on anticoagulation with Eliquis. Previous history of ablation. hypertension Hyperlipidemia Diabetes mellitusn A1c 8.1. COPD BPH Dementia DVT prophylaxis. Patient is already on Eliquis. monitor vital signs Monitor CBC Monitor CMP Blood cultures negative. Sputum culture was sent. Continue IV Zosyn, DC'd vancomycin and azithromycin. Patient was started on IV Solu-Medrol 40 mg every 6 hourly. Pulmonary is on board. Continue the DuoNebs. ID and orthopedic surgery is on board. Consult PT and OT evaluation Resume home meds monitor blood sugar levels, continue sliding scale insulin hold blood pressure medications for now,as patient was hypotensive at the assisted, reintroduce blood pressure medications as tolerated. Prognosis guarded. Discussed with his at bedside in detail. Objective - Vital Signs Vital signs: Vital Signs Temp 97.4 F L 07/23/22 19:32 Pulse 68 07/23/22 20:37 Resp 17 07/23/22 19:32 BP 126/69 07/23/22 19:32 Pulse Ox 98 07/23/22 19:32 FiO2 Intake & Output 07/23/22 07/23/22 07/24/22 06:59 18:59 06:59 Intake Total 360 236 Output Total 175 Balance 185 236 Intake: Intake, IV Titration 360 Amount Sodium Chloride 0.9% 1, 200 000 ml @ 50 mls/hr IV . Q20H MICHA Rx#:[id number] Sodium Chloride 0.9% 500 160 ml 500 ml @ 20 mls/hr IV .Q24H MICHA Rx#:[id number] Oral 236 Output: Urine 175 Other: Voiding Method Toilet Toilet Urinal # Voids 1 2 # Bowel Movements 2 - Labs CBC & Chem 7: 07/24/22 04:23 07/24/22 04:23 Labs: Abnormal Lab Results - Last 24 Hours (Table) 07/23/22 07/23/22 07/23/22 Range/Units 04:53 04:53 05:58 WBC 11.12 H (4.50-10.00) X 10*3/uL RBC 3.70 L (4.40-5.60) X 10*6/uL Hgb 10.7 L (13.0-17.0) g/dL Hct 34.4 L (39.6-50.0) % MCHC 31.1 L (32.0-37.0) g/dL Immature Gran # 0.05 H (0.00-0.04) X 10*3/uL Neutrophils # 10.06 H (1.80-7.70) X 10*3/uL Lymphocytes # 0.48 L (0.90-5.00) X 10*3/uL Eosinophils # 0 L (0.04-0.35) X 10*3/uL Carbon Dioxide 27.9 H (20.0-27.5) mmol/L BUN 29.5 H (9.0-27.0) mg/dL BUN/Creatinine Ratio 26.82 H (12.00-20.00) Ratio Glucose 208 H (70-110) mg/dL POC Glucose (mg/dL) 254 H (70-110) mg/dL 07/23/22 07/23/22 07/23/22 Range/Units 11:25 16:39 20:07 WBC (4.50-10.00) X 10*3/uL RBC (4.40-5.60) X 10*6/uL Hgb (13.0-17.0) g/dL Hct (39.6-50.0) % MCHC (32.0-37.0) g/dL Immature Gran # (0.00-0.04) X 10*3/uL Neutrophils # (1.80-7.70) X 10*3/uL Lymphocytes # (0.90-5.00) X 10*3/uL Eosinophils # (0.04-0.35) X 10*3/uL Carbon Dioxide (20.0-27.5) mmol/L BUN (9.0-27.0) mg/dL BUN/Creatinine Ratio (12.00-20.00) Ratio Glucose (70-110) mg/dL POC Glucose (mg/dL) 260 H 233 H 269 H (70-110) mg/dL Microbiology - Last 24 Hours (Table) 07/19/22 17:10 Legionella Culture - Preliminary Sputum 07/18/22 14:05 Blood Culture - Preliminary Blood 07/18/22 13:50 Blood Culture - Preliminary Blood
--- NOTE | 2022-07-25 03:28 | P.PN ---
Subjective Progress Note Date: 07/24/22 Patient is 82 years old male with a past medical history significant for atrial fibrillation ,heart failure, COPD, diabetes mellitus, hyperlipidemia, hypertension,septic knee [facility] of worsening [facility]ness of breath .patient was recently admitted for right knee septic joint under service of orthopedic team of Dr. Wellington and underwent washout and incision and drainage. Infectious disease team was also on the case patient was discharged on IV antibiotics. Patient has been complaining of worsening shortness of breath for the last day. Patient was also complaining of nausea and vomiting. Patient also complaining of abdominal pain. There was no complain of fever or chills. Patient was complainingof lethargy and weakness. Initial lab work done in the ER showed white count 6.4, hemoglobin 12.4, platelet count 419, sodium 134, potassium 4.3, BUN 32, creatinine 1.19, initial lactic acid was 4.2, initial chest x-ray done showed interval development of bibasilar infiltrates with small to moderate right and minimal left pleural effusion Patient was admitted to internal medicine service 07/20/2022 Patient is currently lying in the bed. Lethargic and weak. Could not provide any history. Patient's is at bedside. Still having shortness of breath and requiring oxygen at 3 L via nasal cannula. Patient has been afebrile. Continued on antibiotics in the form of Zosyn. Laboratory data showed creatinine 0.85, A1c 8.1. Procalcitonin level is 0.61 and CRP 17.8. ID is on board and pulmonary was consulted. 07/21/2022 Patient is currently resting in bed. Awake alert but could not provide any history. Currently requiring oxygen at 3 L via nasal cannula. Patient has been afebrile. No nausea vomiting abdominal pain or diarrhea. No cough or sputum production. Patient is otherwise lethargic. Sputum culture showed Pseudomonas and Meenakshi albicans. Patient is currently on Zosyn. Patient is also on IV Solu-Medrol 40 mg every 6 hourly and DuoNebs. Pulmonary and ID is on board. Patient is also on IV hydration with normal saline at 50 cc/h. Chest x-ray this morning showed ongoing CHF with patchy bibasilar pulmonary edema along with a moderate right pleural effusion. Laboratory data showed WBC 7.6 hemoglobin 12.3 and platelets 391 Sodium 135 potassium 4.1 chloride 101 bicarb is 23 BUN 23 and creatinine 0.86 and blood sugar is 341. 07/22/2022 Patient is currently sitting In the chair. Seems to be more awake and oriented today. Oxygen titrated down to room air this afternoon. Patient has been afebrile. No nausea vomiting abdominal pain or diarrhea. Patient is being continued on IV Solu-Medrol and DuoNebs and also on antibiotics involve Zosyn. Patient is on anticoagulation with Eliquis. Patient seems to be depressed as per his . Currently on Remeron. Blood sugar is elevated to greater than 600 likely to IV steroids. Continue with insulin regimen and titrate dose. A1c 8.1. Laboratory data showed creatinine 0.99. ID and pulmonary is on board. 07/23/2022 Patient is currently lying in the bed. Awake alert and oriented. Slow to respond. No complaints of chest pain or worsening shortness of breath. Currently on 3 L oxygen via nasal cannula. Patient is being continued on antibiotics in the form of Zosyn. Culture showed Pseudomonas aeruginosa. Laboratory data showed WBC 11.1 hemoglobin 10.7 and platelets 375 BUN 29.5 and creatinine 1.1 and blood sugar is 208. Patient is being continued on IV steroids Solu-Medrol 40 mg every 6 hourly. Continue with insulin regimen. Pulmonary and ID is on board. 07/24/2022 Patient is sitting in the chair today. Awake alert and oriented. No acute distress. Currently on oxygen at 3 L via nasal cannula. Patient is being continued on IV Solu-Medrol, DuoNebs and anticoagulation with Eliquis. Laboratory data showed WBC 11.8 hemoglobin 11.2 and platelets 410 BUN 25.5 cre atinine 0.9 calcium 10.4. Blood sugar is better controlled today. Continue with insulin regimen. Pulmonary and ID is on board. Current medications reviewed. REVIEW OF SYSTEMS: Complete review of systems could not be obtained from the patient except as above. PHYSICAL EXAMINATION: GENERAL: The patient is alert and oriented x2-3, not in any acute distress. Well developed, well nourished. Patient is lethargic and weak. HEENT: Pupils are round and equally reacting to light. EOMI. No scleral icterus. No conjunctival pallor. Normocephalic, atraumatic. No pharyngeal erythema. No thyromegaly. CARDIOVASCULAR: S1 and S2 present. No murmurs, rubs, or gallops. PULMONARY: Coarse Breath sounds bilaterally no wheezing or crackles. ABDOMEN: Soft, nontender, nondistended, normoactive bowel sounds. No palpable organomegaly. MUSCULOSKELETAL: No joint swelling or deformity. Right knee surgical incision seen EXTREMITIES: No cyanosis, clubbing, or pedal edema. NEUROLOGICAL: Gross neurological examination did not reveal any focal deficits. SKIN: No rashes. Assessment and plan Acute hypoxic respiratory failure is multifactorial related to volume overload and pneumonia-aspiration is being considered... Requiring oxygen at 3 L via nasal cannula. Sputum culture is growing Pseudomonas and Meenakshi. titrate down to RA Sepsis secondary to above Hyperglycemia likely due to steroids. history of Right knee septic arthritis status post I&D and wound VAC history of Staphylococcus Lugdunenisis bacteremia Paroxysmal atrial fibrillation on anticoagulation with Eliquis. Previous history of ablation. hypertension Hyperlipidemia Diabetes mellitusn A1c 8.1. COPD BPH Dementia DVT prophylaxis. Patient is already on Eliquis. monitor vital signs Monitor CBC Monitor CMP Blood cultures negative. Sputum culture was sent. Continue IV Zosyn, DC'd vancomycin and azithromycin. Patient was started on IV Solu-Medrol 40 mg every 6 hourly. Pulmonary is on board. Continue the DuoNebs. ID and orthopedic surgery is on board. Consult PT and OT evaluation Resume home meds monitor blood sugar levels, continue sliding scale insulin hold blood pressure medications for now,as [facility], reintroduce blood pressure medications as tolerated. Prognosis guarded. Discussed with his at bedside in detail. Objective - Vital Signs Vital signs: Vital Signs Temp 97.5 F L 07/24/22 20:00 Pulse 68 07/24/22 20:49 Resp 17 07/24/22 20:00 BP 126/69 07/24/22 20:00 Pulse Ox 98 07/24/22 20:00 FiO2 Intake & Output 07/24/22 07/24/22 07/25/22 06:59 18:59 06:59 Intake Total 472 Output Total 820 Balance -820 472 Intake: Oral 472 Output: Urine 820 Other: Voiding Method Toilet Toilet Urinal Urinal # Voids 2 # Bowel Movements 1 - Labs CBC & Chem 7: 07/24/22 04:23 07/24/22 04:23 Labs: Abnormal Lab Results - Last 24 Hours (Table) 07/24/22 07/24/22 07/24/22 Range/Units 04:23 04:23 06:02 WBC 11.85 H (4.50-10.00) X 10*3/uL RBC 3.83 L (4.40-5.60) X 10*6/uL Hgb 11.2 L (13.0-17.0) g/dL Hct 35.1 L (39.6-50.0) % MCHC 31.9 L (32.0-37.0) g/dL Immature Gran # 0.06 H (0.00-0.04) X 10*3/uL Neutrophils # 10.71 H (1.80-7.70) X 10*3/uL Lymphocytes # 0.59 L (0.90-5.00) X 10*3/uL Eosinophils # 0 L (0.04-0.35) X 10*3/uL Carbon Dioxide 28.1 H (20.0-27.5) mmol/L Anion Gap 6.90 L (10.00-18.00) mmol/L BUN/Creatinine Ratio 28.33 H (12.00-20.00) Ratio POC Glucose (mg/dL) 115 H (70-110) mg/dL Calcium 10.4 H (8.7-10.3) mg/dL 07/24/22 07/24/22 07/24/22 Range/Units 11:25 16:29 20:19 WBC (4.50-10.00) X 10*3/uL RBC (4.40-5.60) X 10*6/uL Hgb (13.0-17.0) g/dL Hct (39.6-50.0) % MCHC (32.0-37.0) g/dL Immature Gran # (0.00-0.04) X 10*3/uL Neutrophils # (1.80-7.70) X 10*3/uL Lymphocytes # (0.90-5.00) X 10*3/uL Eosinophils # (0.04-0.35) X 10*3/uL Carbon Dioxide (20.0-27.5) mmol/L Anion Gap (10.00-18.00) mmol/L BUN/Creatinine Ratio (12.00-20.00) Ratio POC Glucose (mg/dL) 279 H 283 H 259 H (70-110) mg/dL Calcium (8.7-10.3) mg/dL Microbiology - Last 24 Hours (Table) 07/18/22 14:05 Blood Culture - Final Blood 07/18/22 13:50 Blood Culture - Final Blood
[2022-07-25 06:33] LABS: Glucose,Whole Blood 117 mg/dL (70-110)
[2022-07-25] MEDS: INSULIN ASPART (NovoLOG) 100 UNIT/ML VIAL SQ SCH ×7 (06:36→20:56)
[2022-07-25] MEDS: methylPREDNISolone SOD SUCCI 40 MG/ML 1 ML VIAL IV SCH ×4 (06:39→23:04)
[2022-07-25] MEDS: PANTOPRAZOLE 40 MG TABLET PO SCH ×2 (06:39→18:19)
--- NOTE | 2022-07-25 06:55 | XR ---
EXAMINATION TYPE: XR chest 1V portable DATE OF EXAM: 07/25/2022 CLINICAL HISTORY: Difficulty breathing progress study. CHF. TECHNIQUE: Single AP portable upright view of the chest is obtained. COMPARISON: Chest x-ray from 3 days earlier FINDINGS: Stable left-sided PICC line. Persistent small to moderate sized bilateral pleural effusions and associated bibasilar opacity. Upper lungs remain clear without pneumothorax. Cardiac silhouette size stable within normal limits. Bridging osteophytes in the thoracic spine are redemonstrated. IMPRESSION: [id number] sized bilateral pleural effusions with associated opacity favoring comp ressive atelectasis redemonstrated. Fluid overload state suspected. No significant change from most r ecent study.
[2022-07-25] MEDS: IPRATROPIUM-ALBUTEROL 3 ML NEB INHALATION SCH ×4 (07:59→22:26)
[2022-07-25] MEDS: BUDESONIDE 1 MG/2 ML NEBU INHALATION SCH ×2 (07:59→22:26)
[2022-07-25] MEDS: FORMOTEROL FUMARATE 20 MCG/2 ML NEBU INHALATION SCH ×2 (07:59→22:26)
[2022-07-25] MEDS: RIVASTIGMINE TARTRATE 3 MG PO SCH ×2 (09:54→18:19)
[2022-07-25] MEDS: TAMSULOSIN 0.4 MG CAP.ER.24H PO SCH ×2 (09:54→18:19)
[2022-07-25] MEDS: NYSTATIN 100,000 UNIT/GM POWD 15 GM TOPICAL SCH ×2 (09:54→20:56)
[2022-07-25] MEDS: APIXABAN 5 MG TAB PO SCH ×2 (09:54→18:18)
[2022-07-25] MEDS: SENNOSIDES-DOCUSATE SODIUM 1 EACH TAB PO SCH ×2 (09:59→18:19)
[2022-07-25 11:28] LABS: Glucose,Whole Blood 265 mg/dL (70-110)
[2022-07-25 11:42] LABS: Basophils # (A) 0.01 X 10*3/uL (0.00-0.10); Basophils % (A) 0.1 %; Eosinophils # (A) 0 X 10*3/uL (0.04-0.35); Eosinophils % (A) 0 %; HCT 35.3 % (39.6-50.0); HGB 11.2 g/dL (13.0-17.0); Immature Grans, Automated 1.5 %; Lymphocytes # (A) 0.76 X 10*3/uL (0.90-5.00); Lymphocytes % (A) 5.7 %; MCHC 31.7 g/dL (32.0-37.0); MCV 91.5 fL (80.0-97.0); Monocytes # (A) 0.66 X 10*3/uL (0.20-1.00); Monocytes % (A) 4.9 %; NRBC Per 100 WBC 0 /100 WBCS (0.0-0.0); Neutrophils # (A) 11.72 X 10*3/uL (1.80-7.70); Neutrophils % (A) 87.8 %; Platelet Count 433 X 10*3/uL (140-440); RBC 3.86 X 10*6/uL (4.40-5.60); RDW 13.4 % (11.5-14.5); WBC 13.35 X 10*3/uL (4.50-10.00)
[2022-07-25 11:44] LABS: African American GFR (CKD) 91.2 (60.0-200.0); Anion Gap 7.4 mmol/L (10.00-18.00); BUN/Creat Ratio 27.56 Ratio (12.00-20.00); Blood Urea Nitrogen 24.8 mg/dL (9.0-27.0); Calcium 10.4 mg/dL (8.7-10.3); Carbon Dioxide 26.6 mmol/L (20.0-27.5); Non-African American GFR(CKD) 78.7 (60.0-200.0); Potassium 4.7 mmol/L (3.5-5.5)
[2022-07-25] MEDS ORDERED: FUROSEMIDE 10 MG/ML 4 ML VIAL IV STA (11:50)
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
--- NOTE | 2022-07-25 13:49 | P.PN ---
Subjective Progress Note Date: 07/23/22 Principal diagnosis: Aspiration pneumonia Patient is a 82-year-old male with a past medical history significant for COPD diabetes mellitus hypertension hyperlipidemia recent admission to the hospital with a right knee pain and swelling concern for septic arthritis in th is patient who is status post I&D on 06/21/2022 , subsequent sent to the [facility] on IV antibiotic therapy presenting back to the hospital with vomiting, increasing respiratory distress and concern for right-sided pneumonia likely aspiration etiology. on today's evaluation that is 07/23/2022, the patient to be afebrile the patient is breathing comfortably on a 3 L nasal cannula oxygen, the patient denies having any nausea or vomiting has been reported, the patient been tolerating his diet and no diarrhea has been reported , Objective - Vital Signs Vital signs: Vital Signs Temp 97.4 F L 07/23/22 07:41 Pulse 76 07/23/22 08:34 Resp 19 07/23/22 07:41 BP 144/81 07/23/22 07:41 Pulse Ox 98 07/23/22 07:41 FiO2 Intake & Output 07/22/22 07/23/22 07/23/22 18:59 06:59 18:59 Intake Total 360 Output Total 400 175 Balance -400 185 Weight 73.936 kg Intake: Intake, IV Titration 360 Amount Sodium Chloride 0.9% 1, 200 000 ml @ 50 mls/hr IV . Q20H MICHA Rx#:[id number] Sodium Chloride 0.9% 500 160 ml 500 ml @ 20 mls/hr IV .Q24H MICHA Rx#:[id number] Output: Urine 400 175 Other: Voiding Method Toilet # Voids 1 # Bowel Movements 0 - Exam An elderly male up in the chair in no distress Decreased intensity of breath sounds at the base Abdominal soft Exam completed with the help of NETWORK SUPPORT TECHNICIAN - Labs CBC & Chem 7: 07/25/22 06:50 07/25/22 06:50 Labs: Abnormal Lab Results - Last 24 Hours (Table) 07/22/22 07/22/22 07/22/22 Range/Units 11:50 16:35 19:51 POC Glucose (mg/dL) 390 H >600 H 445 H (70-110) mg/dL 07/23/22 Range/Units 05:58 POC Glucose (mg/dL) 254 H (70-110) mg/dL Microbiology - Last 24 Hours (Table) 07/18/22 14:05 Blood Culture - Preliminary Blood 07/18/22 13:50 Blood Culture - Preliminary Blood 07/19/22 17:10 Gram Stain - Final Sputum Sputum Culture - Final Pseudomonas aeruginosa Meenakshi albicans Assessment and Plan (1) Pneumonia Current Visit: Yes Status: Acute Code(s): J18.9 - PNEUMONIA, UNSPECIFIED ORGANISM SNOMED Code(s): 391897292 Plan: This was a telehealth visit 1patient presented to hospital with increasing shortness of breath cough hypoxemia with evidence of bibasilar infiltrate with concern for possible as piration pneumonia as the patient has been vomiting for a day or 2 before his respiratory symptoms got worse and no need to cover for the resistant gram- negative, sputum has been finalized the Pseudomonas that is sensitive to Zosyn 2-patient seemed to have shortening improvement, patient will be continued on Zosyn and monitor clinical course closely Time with Patient: Less than 30
--- NOTE | 2022-07-25 13:50 | P.PN ---
Subjective Progress Note Date: 07/24/22 Principal diagnosis: Aspiration pneumonia Patient is a 82-year-old male with a past medical history significant for COPD diabetes mellitus hypertension hyperlipidemia recent admission to the hospital with a right knee pain and swelling concern for septic arthritis in th is patient who is status post I&D on 06/21/2022 , subsequent sent to the [facility] on IV antibiotic therapy presenting back to the hospital with vomiting, increasing respiratory distress and concern for right-sided pneumonia likely aspiration etiology. on today's evaluation that is 07/24/2022, the patient continues to be afebrile the patient is breathing comfortably on a 3 L nasal cannula oxygen, patient denies having any chest pain no worsening cough, the patient denies nausea or vomiting has been reported, the patient been tolerating his diet and no diarrhea has been reported , Objective - Vital Signs Vital signs: Vital Signs Temp 97.6 F 07/24/22 07:15 Pulse 68 07/24/22 08:21 Resp 19 07/24/22 07:15 BP 132/72 07/24/22 07:15 Pulse Ox 99 07/24/22 07:15 FiO2 Intake & Output 07/23/22 07/24/22 07/24/22 18:59 06:59 18:59 Intake Total 236 236 Output Total 820 Balance 236 -820 236 Intake: Oral 236 236 Output: Urine 820 Other: Voiding Method Toilet Toilet Urinal # Voids 2 # Bowel Movements 2 - Exam An elderly male up in the chair in no distress Decreased intensity of breath sounds at the base Abdominal soft Exam completed with the help of FINANCIAL PLANNING ADVISER - Labs CBC & Chem 7: 07/25/22 06:50 07/25/22 06:50 Labs: Abnormal Lab Results - Last 24 Hours (Table) 07/23/22 07/23/22 07/23/22 Range/Units 11:25 16:39 20:07 Carbon Dioxide (20.0-27.5) mmol/L Anion Gap (10.00-18.00) mmol/L BUN/Creatinine Ratio (12.00-20.00) Ratio POC Glucose (mg/dL) 260 H 233 H 269 H (70-110) mg/dL Calcium (8.7-10.3) mg/dL 07/24/22 07/24/22 Range/Units 04:23 06:02 Carbon Dioxide 28.1 H (20.0-27.5) mmol/L Anion Gap 6.90 L (10.00-18.00) mmol/L BUN/Creatinine Ratio 28.33 H (12.00-20.00) Ratio POC Glucose (mg/dL) 115 H (70-110) mg/dL Calcium 10.4 H (8.7-10.3) mg/dL Microbiology - Last 24 Hours (Table) 07/18/22 14:05 Blood Culture - Final Blood 07/18/22 13:50 Blood Culture - Final Blood 07/19/22 17:10 Legionella Culture - Preliminary Sputum Assessment and Plan (1) Pneumonia Current Visit: Yes Status: Acute Code(s): J18.9 - PNEUMONIA, UNSPECIFIED ORGANISM SNOMED Code(s): 120033216 Plan: This was a telehealth visit 1patient presented to hospital with increasing shortness of breath cough hypoxemia with evidence of bibasilar infiltrate with concern for possible aspiration pneumonia as the patient has been vomiting for a day or 2 before his respiratory symptoms got worse and no need to cover for the resistant gram- negative, sputum has been finalized the Pseudomonas that is sensitive to Zosyn 2-patient continued to show clinical improvement with the current treatment of Zosyn which will be continued and monitor clinical course closely Time with Patient: Less than 30
--- NOTE | 2022-07-25 13:51 | P.PN ---
Subjective Progress Note Date: 07/25/22 Principal diagnosis: Aspiration pneumonia Patient is a 82-year-old male with a past medical history significant for COPD diabetes mellitus hypertension hyperlipidemia recent admission to the hospital with a right knee pain and swelling concern for septic arthritis in th is patient who is status post I&D on 06/21/2022 , subsequent sent to the intermediate on IV antibiotic therapy presenting back to the hospital with vomiting, increasing respiratory distress and concern for right-sided pneumonia likely aspiration etiology. on today's evaluation that is 07/25/2022, the patient remains to be afebrile the patient is breathing comfortably on a 3 L nasal cannula oxygen, patient denies chest pain, did have occasional dry cough, the patient denies nausea or vomiting has been reported, the patient been tolerating his diet and no diarrhea has been reported by the nursing staff , Objective - Vital Signs Vital signs: Vital Signs Temp 98.1 F 07/25/22 07:39 Pulse 68 07/25/22 08:20 Resp 18 07/25/22 08:20 BP 135/74 07/25/22 07:39 Pulse Ox 96 07/25/22 07:59 FiO2 Intake & Output 07/24/22 07/25/22 07/25/22 18:59 06:59 18:59 Intake Total 472 Output Total 590 Balance 472 -590 Intake: Oral 472 Output: Urine 590 Other: Voiding Method Toilet Urinal # Voids 2 # Bowel Movements 1 - Exam GENERAL DESCRIPTION: An elderly male up in the chair in no distress RESPIRATORY SYSTEM: Unlabored breathing , decreased breath sounds at bases HEART: S1 S2 regular rate and rhythm , ABDOMEN: Soft , no tenderness EXTREMITIES: Right knee incision is healed there is no swelling no redness - Labs CBC & Chem 7: 07/25/22 06:50 07/25/22 06:50 Labs: Abnormal Lab Results - Last 24 Hours (Table) 07/24/22 07/24/22 07/25/22 Range/Units 16:29 20:19 06:32 WBC (4.50-10.00) X 10*3/uL RBC (4.40-5.60) X 10*6/uL Hgb (13.0-17.0) g/dL Hct (39.6-50.0) % MCHC (32.0-37.0) g/dL Immature Gran # (0.00-0.04) X 10*3/uL Neutrophils # (1.80-7.70) X 10*3/uL Lymphocytes # (0.90-5.00) X 10*3/uL Eosinophils # (0.04-0.35) X 10*3/uL Anion Gap (10.00-18.00) mmol/L BUN/Creatinine Ratio (12.00-20.00) Ratio POC Glucose (mg/dL) 283 H 259 H 117 H (70-110) mg/dL Calcium (8.7-10.3) mg/dL 07/25/22 07/25/22 07/25/22 Range/Units 06:50 06:50 11:27 WBC 13.35 H (4.50-10.00) X 10*3/uL RBC 3.86 L (4.40-5.60) X 10*6/uL Hgb 11.2 L (13.0-17.0) g/dL Hct 35.3 L (39.6-50.0) % MCHC 31.7 L (32.0-37.0) g/dL Immature Gran # 0.20 H (0.00-0.04) X 10*3/uL Neutrophils # 11.72 H (1.80-7.70) X 10*3/uL Lymphocytes # 0.76 L (0.90-5.00) X 10*3/uL Eosinophils # 0 L (0.04-0.35) X 10*3/uL Anion Gap 7.40 L (10.00-18.00) mmol/L BUN/Creatinine Ratio 27.56 H (12.00-20.00) Ratio POC Glucose (mg/dL) 265 H (70-110) mg/dL Calcium 10.4 H (8.7-10.3) mg/dL Assessment and Plan (1) Pneumonia Current Visit: Yes Status: Acute Code(s): J18.9 - PNEUMONIA, UNSPECIFIED O RGANISM SNOMED Code(s): 418708099 Plan: 1patient presented to hospital with increasing shortness of breath cough hypoxemia with evidence of bibasilar infiltrate with concern for possible aspiration pneumonia as the patient has been vomiting for a day or 2 before his respiratory symptoms got worse and no need to cover for the resistant gram- negative, sputum has been finalized the Pseudomonas that is sensitive to Zosyn 2-patient has shown clinical improvement with the current treatment of Zosyn which will be continued for about a week on discharge and close outpatient follow-up Plan of care discussed with at the bedside Time with Patient: Less than 30
[2022-07-25 16:34] LABS: Glucose,Whole Blood 224 mg/dL (70-110)
[2022-07-25 20:41] LABS: Glucose,Whole Blood 240 mg/dL (70-110)
[2022-07-25] MEDS: MIRTAZAPINE 15 MG TAB PO SCH (20:56)
[2022-07-25] MEDS: MONTELUKAST 10 MG TAB PO SCH (20:56)
[2022-07-25] MEDS: ATORVASTATIN 20 MG TAB PO SCH (20:56)
[2022-07-25] MEDS: INSULIN DETEMIR (LEVEMIR) 100 UNIT/ML SYR SQ SCH (20:56)
[2022-07-25] MEDS: METOPROLOL SUCCINATE (ER) 25 MG TAB.ER.24H PO SCH (20:56)
--- NOTE | 2022-07-25 21:36 | P.PN ---
Subjective Patient is 82 years old male with a past medical history significant for atrial fibrillation ,heart failure, COPD, diabetes mellitus, hyperlipidemia, hypertension,septic knee who was sent in from intermediate because of worsening shortness of breath .patient was recently admitted for right knee septic joint under service of orthopedic team of Dr. Wellington and underwent washout and incision and drainage. Infectious disease team was also on the case patient was discharged on IV antibiotics. Patient has been complaining of worsening shortness of breath for the last day. Patient was also complaining of nausea and vomiting. Patient also complaining of abdominal pain. There was no complain of fever or chills. Patient was complainingof lethargy and weakness. Initial lab work done in the ER showed white count 6.4, hemoglobin 12.4, platel et count 419, sodium 134, potassium 4.3, BUN 32, creatinine 1.19, initial lactic acid was 4.2, initial chest x-ray done showed interval development of bibasilar infiltrates with small to moderate right and minimal left pleural effusion Patient was admitted to internal medicine service 07/20/2022 Patient is currently lying in the bed. Lethargic and weak. Could not provide any history. Patient's is at bedside. Still having shortness of breath and requiring oxygen at 3 L via nasal cannula. Patient has been afebrile. Continued on antibiotics in the form of Zosyn. Laboratory data showed creatinine 0.85, A1c 8.1. Procalcitonin level is 0.61 and CRP 17.8. ID is on board and pulmonary was consulted. 07/21/2022 Patient is currently resting in bed. Awake alert but could not provide any history. Currently requiring oxygen at 3 L via nasal cannula. Patient has been afebrile. No nausea vomiting abdominal pain or diarrhea. No cough or sputum production. Patient is otherwise lethargic. Sputum culture showed Pseudomonas and Meenakshi albicans. Patient is currently on Zosyn. Patient is also on IV Solu-Medrol 40 mg every 6 hourly and DuoNebs. Pulmonary and ID is on board. Patient is also on IV hydration with normal saline at 50 cc/h. Chest x-ray this morning showed ongoing CHF with patchy bibasilar pulmonary edema along with a moderate right pleural effusion. Laboratory data showed WBC 7.6 hemoglobin 12.3 and platelets 391 Sodium 135 potassium 4.1 chloride 101 bicarb is 23 BUN 23 and creatinine 0.86 and blood sugar is 341. 07/22/2022 Patient is currently sitting In the chair. Seems to be more awake and oriented today. Oxygen titrated down to room air this afternoon. Patient has been afebrile. No nausea vomiting abdominal pain or diarrhea. Patient is being continued on IV Solu-Medrol and DuoNebs and also on antibiotics involve Zosyn. Patient is on anticoagulation with Eliquis. Patient seems to be depressed as per his . Currently on Remeron. Blood sugar is elevated to greater than 600 likely to IV steroids. Continue with insulin regimen and titrate dose. A1c 8.1. Laboratory data showed creatinine 0.99. ID and pulmonary is on board. 07/23/2022 Patient is currently lying in the bed. Awake alert and oriented. Slow to respond. No complaints of chest pain or worsening shortness of breath. Currently on 3 L oxygen via nasal cannula. Patient is being continued on antibiotics in the form of Zosyn. Culture showed Pseudomonas aeruginosa. Laboratory data showed WBC 11.1 hemoglobin 10.7 and platelets 375 BUN 29.5 and creatinine 1.1 and blood sugar is 208. Patient is being continued on IV steroids Solu-Medrol 40 mg every 6 hourly. Continue with insulin regimen. Pulmonary and ID is on board. 07/24/2022 Patient is sitting in the chair today. Awake alert and oriented. No acute distress. Currently on oxygen at 3 L via nasal cannula. Patient is being continued on IV Solu-Medrol, DuoNebs and anticoagulation with Eliquis. Laboratory data showed WBC 11.8 hemoglobin 11.2 and platelets 410 BUN 25.5 creatinine 0.9 calcium 10.4. Blood sugar is better controlled today. Continue with insulin regimen. Pulmonary and ID is on board. 07/25/2022 Patient is awake and alert, he denies dyspnea at rest but still have some mild exertional dyspnea, still coughing with no much over phlegm. No chest pain He is saturating 98% on 3 L. He was not on oxygen at home as he states. Hysterectomy and on Zosyn and IV Solu-Medrol Possible discharge in 24 different or if he keeps improving Objective - Vital Signs Vital signs: Vital Signs Temp 97.9 F 07/25/22 02:00 Pulse 68 07/25/22 08:20 Resp 18 07/25/22 08:20 BP 132/73 05/29/23 02:00 Pulse Ox 96 07/25/22 07:59 FiO2 Intake & Output 07/24/22 07/25/22 07/25/22 18:59 06:59 18:59 Intake Total 472 Output Total 590 Balance 472 -590 Intake: Oral 472 Output: Urine 590 Other: Voiding Method Toilet Urinal # Voids 2 # Bowel Movements 1 - Exam GENERAL: The patient is alert and oriented x3, not in any acute distress. Well developed, well nourished. HEENT: Pupils are round and equally reacting to light. EOMI. No scleral icterus. No conjunctival pallor. Normocephalic, atraumatic. No pharyngeal erythema. No thyromegaly. CARDIOVASCULAR: S1 and S2 present. No murmurs, rubs, or gallops. PULMONARY: Chest is clear to auscultation, no wheezing . no crackles. ABDOMEN: Soft, nontender, nondistended, normoactive bowel sounds. No palpable organomegaly. MUSCULOSKELETAL: No joint swelling or deformity. EXTREMITIES: No cyanosis, clubbing, or pedal edema. NEUROLOGICAL: Gross neurological examination did not reveal any focal deficits. SKIN: No rashes. no petechiae. - Labs CBC & Chem 7: 07/25/22 06:50 07/25/22 06:50 Labs: Abnormal Lab Results - Last 24 Hours (Table) 07/24/22 07/24/22 07/24/22 Range/Units 04:23 04:23 11:25 WBC 11.85 H (4.50-10.00) X 10*3/uL RBC 3.83 L (4.40-5.60) X 10*6/uL Hgb 11.2 L (13.0-17.0) g/dL Hct 35.1 L (39.6-50.0) % MCHC 31.9 L (32.0-37.0) g/dL Immature Gran # 0.06 H (0.00-0.04) X 10*3/uL Neutrophils # 10.71 H (1.80-7.70) X 10*3/uL Lymphocytes # 0.59 L (0.90-5.00) X 10*3/uL Eosinophils # 0 L (0.04-0.35) X 10*3/uL Carbon Dioxide 28.1 H (20.0-27.5) mmol/L Anion Gap 6.90 L (10.00-18.00) mmol/L BUN/Creatinine Ratio 28.33 H (12.00-20.00) Ratio POC Glucose (mg/dL) 279 H (70-110) mg/dL Calcium 10.4 H (8.7-10.3) mg/dL 07/24/22 07/24/22 07/25/22 Range/Units 16:29 20:19 06:32 WBC (4.50-10.00) X 10*3/uL RBC (4.40-5.60) X 10*6/uL Hgb (13.0-17.0) g/dL Hct (39.6-50.0) % MCHC (32.0-37.0) g/dL Immature Gran # (0.00-0.04) X 10*3/uL Neutrophils # (1.80-7.70) X 10*3/uL Lymphocytes # (0.90-5.00) X 10*3/uL Eosinophils # (0.04-0.35) X 10*3/uL Carbon Dioxide (20.0-27.5) mmol/L Anion Gap (10.00-18.00) mmol/L BUN/Creatinine Ratio (12.00-20.00) Ratio POC Glucose (mg/dL) 283 H 259 H 117 H (70-110) mg/dL Calcium (8.7-10.3) mg/dL Microbiology - Last 24 Hours (Table) 07/18/22 14:05 Blood Culture - Final Blood 07/18/22 13:50 Blood Culture - Final Blood Assessment and Plan Assessment: Acute hypoxic respiratory failure is multifactorial related to volume overload and pneumonia-aspiration is being considered... Requiring oxygen at 3 L via nasal cannula. Sputum culture is growing Pseudomonas and Meenakshi. titrate down to RA Sepsis secondary to above Hyperglycemia likely due to steroids. history of Right knee septic arthritis status post I&D and wound VAC history of Staphylococcus Lugdunenisis bacteremia Paroxysmal atrial fibrillation on anticoagulation with Eliquis. Previous histo ry of ablation. hypertension Hyperlipidemia Diabetes mellitusn A1c 8.1. COPD BPH Dementia Plan: Continue with Zosyn Continue with Solu-Medrol His on home dose of Eliquis ID and pulmonary team on the case Labs and medication were reviewed.. Continue same treatment. Continue with symptomatic treatment. Resume home medication. Monitor labs and vitals. DVT and GI prophylaxis. Further recommendations as per clinical course of the patient DVT prophylaxis: Eliqubarney GI Prophylaxis: Pepcid Possible discharge in 24-48 hours
[2022-07-25] MEDS: FAMOTIDINE 20 MG/2 ML VIAL IV SCH (23:04)
[2022-07-26] MEDS: PIPERACILLIN-TAZOBACTAM 3.375 GM in SODIUM CHLORIDE 0.9% 100 ML IVPB SCH ×2 (01:41→09:49)
[2022-07-26] MEDS: SODIUM CHLORIDE 0.9% 500 ML 500 ML IV SCH (02:01)
[2022-07-26] MEDS: methylPREDNISolone SOD SUCCI 40 MG/ML 1 ML VIAL IV SCH ×2 (05:38→12:01)
[2022-07-26] MEDS: PANTOPRAZOLE 40 MG TABLET PO SCH (05:54)
[2022-07-26 06:16] LABS: Glucose,Whole Blood 142 mg/dL (70-110)
[2022-07-26] MEDS: INSULIN ASPART (NovoLOG) 100 UNIT/ML VIAL SQ SCH ×4 (06:40→12:01)
[2022-07-26] MEDS: BUDESONIDE 1 MG/2 ML NEBU INHALATION SCH (08:03)
[2022-07-26] MEDS: FORMOTEROL FUMARATE 20 MCG/2 ML NEBU INHALATION SCH (08:03)
[2022-07-26] MEDS: IPRATROPIUM-ALBUTEROL 3 ML NEB INHALATION SCH ×3 (08:03→15:18)
[2022-07-26] MEDS: FAMOTIDINE 20 MG/2 ML VIAL IV SCH (08:32)
[2022-07-26] MEDS: APIXABAN 5 MG TAB PO SCH (08:32)
[2022-07-26] MEDS: RIVASTIGMINE TARTRATE 3 MG PO SCH (08:32)
[2022-07-26] MEDS: TAMSULOSIN 0.4 MG CAP.ER.24H PO SCH (08:32)
[2022-07-26] MEDS: SENNOSIDES-DOCUSATE SODIUM 1 EACH TAB PO SCH (08:32)
[2022-07-26] MEDS: NYSTATIN 100,000 UNIT/GM POWD 15 GM TOPICAL SCH (08:33)
[2022-07-26 11:12] LABS: Glucose,Whole Blood 178 mg/dL (70-110)
--- NOTE | 2022-07-26 12:42 | P.DS ---
Providers Date of admission: 07/18/22 18:27 Attending physician: Franky Cordova Consults: 07/18/22 18:27 Consult Physician Routine Consulting Provider: Evie Glass Consult Reason/Comments: Sepsis, pneumonia Do you want consulting provider notified?: Yes 07/18/22 18:28 Consult Physician Routine Consulting Provider: Valentín Wellington Consult Reason/Comments: Prior knee infection Do you want consulting provider notified?: Yes 07/20/22 11:34 Consult Physician Routine Consulting Provider: Chang Hodge Consult Reason/Comments: pneumonia, known to pt. Do you want consulting provider notified?: Yes Primary care physician: [facility] Course: diagnoses: Acute Pseudomonas pneumonia Acute hypoxic respiratory failure is multifactorial related to above Sepsis secondary to above Hyperglycemia likely due to steroids. Stage II left heel pressure ulcer acute COPD exacerbation history of Right knee septic arthritis status post I&D and wound VAC history of Staphylococcus Lugdunenisis bacteremia Paroxysmal atrial fibrillation on anticoagulation with Eliquis. Previous history of ablation. hypertension Hyperlipidemia Diabetes mellitusn A1c 8.1. COPD BPH Dementia hospital course: Patient is 82 years old male with a past medical history significant for atrial fibrillation ,heart failure, COPD, diabetes mellitus, hyperlipidemia, hypertension,septic knee who was sent in from intermediate because of worsening shortness of breath .patient was recently admitted for right knee septic joint under service of orthopedic team of Dr. Wellington and underwent washout and incision and drainage. Infectious disease team was also on the case patient was discharged on IV antibiotics. Patient has been complaining of worsening shortness of breath for 1 to 2 days. Patient was found to have acute Pseudomonas pneumonia. His been evaluated by pulmonary and infectious disease team. His been placed also on oxygen treatment for his hypoxia. His respiratory symptoms significantly improved. Today he was not is working back and forth from the restroom using his walker with no significant exertional dyspnea. Also patient denies chest pain or significant dyspnea at rest. No new GI or urinary symptoms. No fever. I discussed with the patient and at bedside and both agreeable patient can be considered for discharge today. Patient was cleared for discharge by both ID team and pulmonary service Patient will be discharged on Zosyn 1 week. ID team recommendation. Left PICC line in place. Patient be discharged on tapered steroids as well, prednisone Problems and management plan were discussed with the patient and he verbalized understanding and acceptance Patient was found stable and can be discharged home in guarded prognosis however he needs follow-up as an outpatient. Patient was instructed to follow up with PCP Dr. Hooper within one week and patient agrees Patient was instructed to follow up with Dr. Glass in 1 week after discharge Patient was instructed to follow up with bridge engineer Dr. Hodge in 2-3 weeks after discharge. Patient agreeable Physical exam -Gen: patient is a AAOx3, no distress. Generally weak CVS: S1-S2, RRR, no murmur Lungs: B/L CTA, no wheezing Abdomen: soft, no distention, no tenderness, positive bowel sounds. -Extremity: no leg edema or induration. Left PICC line Time spent more than 35 minutes Plan - Discharge Summary New Discharge Prescriptions: New Piperacillin-Tazobactam [Zosyn] 3.375 gm IVPB Q8HR #21 dose Discontinued ceFAZolin (PMX-bag) [KEFZOL (PMX-bag)] 2 gm IVPB TID@0600,1400,2200 No Action Montelukast [Singulair] 10 mg PO HS@2100 Budesonide/Formoterol Fumarate [Symbicort 160-4.5 Mcg Inhaler] 2 puff INHALATION RT-BID@0800,1700 Atorvastatin [Lipitor] 20 mg PO HS@2100 Ergocalciferol [Vitamin D2 (1250 Mcg = 06815 Iu)] 1,250 mcg PO FR@1700 Spironolactone [Aldactone] 12.5 mg PO DAILY@0600 Tamsulosin [Flomax] 0.4 mg PO BID@0800,1700 Mirtazapine 15 mg PO HS@2100 Prevagen 1 cap PO DAILY@1700 metOLazone 2.5 mg PO MOWEFR@0600 Ondansetron Odt [Zofran Odt] 4 mg PO Q6H PRN #10 tab PRN Reason: Nausea traMADol HCl [Ultram] 50 mg PO Q6HR PRN 7 Days #20 tab PRN Reason: Pain Na Phos,M-B/Na Phos,Di-Ba [Fleet Adult] 133 ml RECTAL DAILY PRN PRN Reason: Constipation Ipratropium-Albuterol Nebulize [Duoneb 0.5 mg-3 mg/3 ml Soln] 3 ml INHALATION RT-Q6H PRN PRN Reason: Shortness Of Breath Pantoprazole Sodium [Protonix] 40 mg PO BID@0600,1700 Magic Cup 1 can PO BID-W/MEALS Apixaban [Eliquis] 5 mg PO BID@0800,1700 Magnesium Hydroxide [Milk of Magnesia Concentrate] 7,200 mg PO DAILY PRN PRN Reason: Constipation Metoprolol Succinate (ER) [Toprol XL] 25 mg PO HS@2099 glipiZIDE/METFORMIN HCL [glipiZIDE/METFORMIN HCL 2.5-500 mg] 1 tab PO BID@0800,1700 Rivastigmine Tartrate [Exelon] 3 mg PO BID@0800,1700 bisacodyL [Dulcolax] 10 mg RECTAL DAILY PRN PRN Reason: Constipation Glucerna Shake 237 ml PO TID@0800,1200,1700 Sennosides/Docusate Sodium [Senna Plus 8.6-50 mg Softgel] 1 cap PO BID@0800,1700 Furosemide [Lasix] 40 mg PO DAILY@0800 Discharge Medication List Atorvastatin [Lipitor] 20 mg PO HS@209912/12/18 [History] Budesonide/Formoterol Fumarate [Symbicort 160-4.5 Mcg Inhaler] 2 puff INHALATION RT-BID@0800,1700 12/12/18 [History] Montelukast [Singulair] 10 mg PO HS@209912/12/18 [History] Ergocalciferol [Vitamin D2 (1250 Mcg = 95199 Iu)] 1,250 mcg PO FR@169904/25/21 [History] Metoprolol Succinate (ER) [Toprol XL] 25 mg PO HS@209904/25/21 [History] Tamsulosin [Flomax] 0.4 mg PO BID@0800,169904/25/21 [History] Mirtazapine 15 mg PO HS@209903/03/22 [History] Prevagen 1 cap PO DAILY@169903/03/22 [History] Rivastigmine Tartrate [Exelon] 3 mg PO BID@0800,1700 03/03/22 [History] Ondansetron Odt [Zofran Odt] 4 mg PO Q6H PRN #10 tab 06/24/22 [Rx] Apixaban [Eliquis] 5 mg PO BID@0800,1700 07/18/22 [History] Furosemide [Lasix] 40 mg PO DAILY@0800 07/18/22 [History] Glucerna Shake 237 ml PO TID@0800,1200,1700 07/18/22 [History] Ipratropium-Albuterol Nebulize [Duoneb 0.5 mg-3 mg/3 ml Soln] 3 ml INHALATION RT-Q6H PRN 07/18/22 [History] Magic Cup 1 can PO BID-W/MEALS 07/18/22 [History] Magnesium Hydroxide [Milk of Magnesia Concentrate] 7,200 mg PO DAILY PRN 07/18/22 [History] Na Phos,M-B/Na Phos,Di-Ba [Fleet Adult] 133 ml RECTAL DAILY PRN 07/18/22 [History] Pantoprazole Sodium [Protonix] 40 mg PO BID@0600,1700 07/18/22 [History] Sennosides/Docusate Sodium [Senna Plus 8.6-50 mg Softgel] 1 cap PO BID@0800,1700 07/18/22 [History] bisacodyL [Dulcolax] 10 mg RECTAL DAILY PRN 07/18/22 [History] INSULIN ASPART (NovoLOG) [NovoLOG (formulary)] 0 unit SQ ACHS each 07/26/22 [Rx] Piperacillin-Tazobactam [Zosyn] 3.375 gm IVPB Q8HR #21 dose 07/26/22 [Rx] predniSONE 0 mg PO DIRECTED #30 tab 07/26/22 [Rx] Follow up Appointment(s)/Referral(s): Poli Ceron MD [Primary Care Provider] - 1-2 days Chang Hodge DO [Doctor of Osteopathic Medicine] - 2 Weeks Evie Glass MD [STAFF PHYSICIAN] - 1 Week Activity/Diet/Wound Care/Special Instructions: . Discontinue Left PICC line once finish her IV antibiotic course Heart healthy diet, low carbohydrate diet Activity is as tolerated We recommend to check your glucose 4 times a day, before each meal and at bedtime, keep the results in a log book and drinking clear doctor on your appointment date if glucose more than 400 or less than 70 and call 911 on come to emergency room
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
[2022-07-26 14:05] VITALS: BP 118/69; PULSE 76; RESP 17; TEMP 97.6
--- NOTE | 2022-08-14 15:48 | P.PN ---
Subjective Progress Note Date: 07/26/22 Principal diagnosis: Aspiration pneumonia Patient is a 82-year-old male with a past medical history significant for COPD diabetes mellitus hypertension hyperlipidemia recent admission to the hospital with a right knee pain and swelling concern for septic arthritis in th is patient who is status post I&D on 06/21/2022 , subsequent sent to the [place] [facility] on IV antibiotic therapy presenting back to the hospital with vomiting, increasing respiratory distress and concern for right-sided pneumonia likely aspiration etiology. on today's evaluation that is 07/26/2022, the patient continues to be afebrile the patient is breathing comfortably on nasal cannula oxygen, patient denies chest pain, the patient did have occasional cough but no sputum production, the patient denies nausea or vomiting has been reported, the patient been tolerating his diet and no diarrhea has been reported by the nursing staff , Objective - Vital Signs Vital signs: Vital Signs Temp 98.2 F 07/26/22 07:50 Pulse 88 07/26/22 11:16 Resp 18 07/26/22 07:50 BP 118/73 07/26/22 07:50 Pulse Ox 97 07/26/22 08:06 FiO2 Intake & Output 07/25/22 07/26/22 07/26/22 18:59 06:59 18:59 Intake Total 440 Output Total 800 Balance -360 Intake: Intake, IV Titration 440 Amount Piperacillin-Tazobactam 3 200 .375 gm In Sodium Chloride 0.9% 100 ml @ 25 mls/hr IVPB Q8H MICHA Rx#: [id number] Sodium Chloride 0.9% 500 240 ml 500 ml @ 20 mls/hr IV .Q24H MICHA Rx#:[id number] Output: Urine 800 Other: Voiding Method Toilet Urinal # Voids 2 - Exam GENERAL DESCRIPTION: An elderly male up in the chair in no distress RESPIRATORY SYSTEM: Unlabored breathing , decreased breath sounds at bases HEART: S1 S2 regular rate and rhythm , ABDOMEN: Soft , no tenderness EXTREMITIES: Right knee incision is healed there is no swelling no redness - Labs CBC & Chem 7: 07/25/22 06:50 07/25/22 06:50 Labs: Abnormal Lab Results - Last 24 Hours (Table) 07/25/22 07/25/22 07/26/22 Range/Units 16:32 20:39 06:15 POC Glucose (mg/dL) 224 H 240 H 142 H (70-110) mg/dL 07/26/22 Range/Units 11:11 POC Glucose (mg/dL) 178 H (70-110) mg/dL Assessment and Plan (1) Pneumonia Status: Acute Code(s): J18.9 - PNEUMONIA, UNSPECIFIED ORGANISM SNOMED Code(s): 859436324 Plan: 1patient presented to hospital with increasing shortness of breath cough hypoxemia with evidence of bibasilar infiltrate with concern for possible aspiration pneumonia as the patient has been vomiting for a day or 2 before his respiratory symptoms got worse and no need to cover for the resistant gram- negative, sputum has been finalized the Pseudomonas that is sensitive to Zosyn 2-patient has shown clinical improvement , plan is to continue Zosyn for about a week on discharge and close outpatient follow-up Discussed with at the bedside Time with Patient: Less than 30
--- NOTE | 2022-08-14 15:51 | P.PN ---
Subjective Progress Note Date: 07/20/22 Principal diagnosis: Aspiration pneumonia Patient is a 82-year-old male with a past medical history significant for COPD diabetes mellitus hypertension hyperlipidemia recent admission to the hospital with a right knee pain and swelling concern for septic arthritis in th is patient who is status post I&D on 06/21/2022 , [facility] presenting back to the hospital with vomiting, increasing respiratory distress and concern for right-sided pneumonia likely aspiration etiology. on today's evaluation that is 07/20/2022, the patient remains to be afebrile, the patient is more awake and alert he is up in the chair , the patient is breathing comfortably on a 3 L nasal cannula oxygen, no further nausea or vomiting has been reported as the patient been tolerating his diet and no diarrhea has been reported , Objective - Vital Signs Vital signs: Vital Signs Temp 98.1 F 07/20/22 07:08 Pulse 73 07/20/22 07:45 Resp 18 07/20/22 07:08 BP 132/67 07/20/22 07:08 Pulse Ox 99 07/20/22 07:08 FiO2 Intake & Output 07/19/22 07/20/22 07/20/22 18:59 06:59 18:59 Output Total 700 1000 Balance -700 -1000 Output: Urine 700 1000 Other: Voiding Method Urinal Urinal Toilet Incontinent - Exam GENERAL DESCRIPTION: An elderly male up in the chair in no distress RESPIRATORY SYSTEM: Unlabored breathing , decreased breath sounds at bases HEART: S1 S2 regular rate and rhythm , ABDOMEN: Soft , no tenderness EXTREMITIES: Right knee incision remains to be healed minimal swelling no redness or warmth - Labs CBC & Chem 7: 07/25/22 06:50 07/25/22 06:50 Labs: Abnormal Lab Results - Last 24 Hours (Table) 07/19/22 07/19/22 07/20/22 Range/Units 08:57 21:02 05:11 POC Glucose (mg/dL) 162 H (70-110) mg/dL Hemoglobin A1c 8.1 H (0.0-6.0) % Procalcitonin 0.61 H (0.02-0.09) ng/mL 07/20/22 07/20/22 Range/Units 06:16 11:45 POC Glucose (mg/dL) 161 H 230 H (70-110) mg/dL Hemoglobin A1c (0.0-6.0) % Procalcitonin (0.02-0.09) ng/mL Microbiology - Last 24 Hours (Table) 07/18/22 14:05 Blood Culture - Preliminary Blood 07/18/22 13:50 Blood Culture - Preliminary Blood 07/19/22 17:10 Sputum Culture - Preliminary Sputum Assessment and Plan (1) Pneumonia Status: Acute Code(s): J18.9 - PNEUMONIA, UNSPECIFIED ORGANISM SNOMED Code(s): 958369894 Plan: 1patient presented to hospital with increasing shortness of breath cough hypoxemia with evidence of bibasilar infiltrate with concern for possible aspiration pneumonia as the patient has been vomiting for a day or 2 before his respiratory symptoms got worse and no need to cover for the resistant gram- negative with the likely pathogen 2-patient has shown some clinical improvement , the patient to continue with the Zosyn while waiting for the sputum culture to be finalize and monitor clinical course closely Time with Patient: Less than 30
== END 2022-07-26 15:24 | DRG 871 ==
LOC: EC 13:35 → 4SSUR 18:27
PROVIDERS: ADMIT Hospitalist; ATTEND Hospitalist
DX: A41.52 Sepsis due to Pseudomonas (principal); J15.1 Pneumonia due to Pseudomonas; J96.01 Acute respiratory failure with hypoxia; J44.0 Chronic obstructive pulmonary disease with (acute) lower respiratory infection; K76.6 Portal hypertension; J44.1 Chronic obstructive pulmonary disease with (acute) exacerbation; I13.0 Hypertensive heart and chronic kidney disease with heart failure and stage 1 through stage 4 chronic kidney disease, or unspecified chronic kidney disease; E87.20 Acidosis, unspecified; I50.32 Chronic diastolic (congestive) heart failure; M00.9 Pyogenic arthritis, unspecified; E11.65 Type 2 diabetes mellitus with hyperglycemia; T38.0X5A Adverse effect of glucocorticoids and synthetic analogues, initial encounter; N40.0 Benign prostatic hyperplasia without lower urinary tract symptoms; N18.30 Chronic kidney disease, stage 3 unspecified; L89.622 Pressure ulcer of left heel, stage 2; E78.5 Hyperlipidemia, unspecified; I49.3 Ventricular premature depolarization; Z20.822 Contact with and (suspected) exposure to COVID-19; I48.0 Paroxysmal atrial fibrillation; H91.90 Unspecified hearing loss, unspecified ear; F03.90 Unspecified dementia, unspecified severity, without behavioral disturbance, psychotic disturbance, mood disturbance, and anxiety; E11.22 Type 2 diabetes mellitus with diabetic chronic kidney disease; Z87.891 Personal history of nicotine dependence; Z79.899 Other long term (current) drug therapy; Z79.51 Long term (current) use of inhaled steroids; Z79.01 Long term (current) use of anticoagulants; Z79.84 Long term (current) use of oral hypoglycemic drugs; Z87.01 Personal history of pneumonia (recurrent); Z88.6 Allergy status to analgesic agent; Z88.5 Allergy status to narcotic agent; Z71.3 Dietary counseling and surveillance
CPT/HCPCS: 36415; 71045; 71046; 80048; 80053; 81001; 82565; 83036; 83605; 83880; 84145; 85025; 85610; 85730; 86140; 87040; 87070; 87077; 87186; 87205; 87449; 87635; 93005; 94640; 94760; 96361; 96365; 96366; 96367; 96375; 99285

== ENCOUNTER 2022-08-29 13:03 | Inpatient (IN) | payer MEDICARE ==
[2022-08-29 14:27] LABS: Basophils % (A) 0 %; Eosinophils # (A) 0.1 k/uL (0-0.7); Eosinophils % (A) 1 %; HGB 12.5 gm/dL (13.0-17.5); Lymphocytes # (A) 1.4 k/uL (1.0-4.8); Lymphocytes % (A) 9 %; MCH 29.7 pg (25.0-35.0); MCHC 32.1 g/dL (31.0-37.0); MCV 92.4 fL (80.0-100.0); Mean Platelet Volume 8.3; Monocytes # (A) 0.9 k/uL (0-1.0); Monocytes % (A) 6 %; Neutrophils # (A) 13.9 k/uL (1.3-7.7); Neutrophils % (A) 84 %; Platelet Count 614 k/uL (150-450); RBC 4.22 m/uL (4.30-5.90); RDW 14.3 % (11.5-15.5); WBC 16.5 k/uL (3.8-10.6)
[2022-08-29 14:32] LABS: INR 1.1 (<1.2); Partial Thromboplastin Time 23.5 sec (22.0-30.0); Prothrombin Time 11.2 sec (9.0-12.0)
[2022-08-29 14:37] LABS: ALT 25 U/L (4-49); AST 29 U/L (17-59); African American GFR (CKD) 79 (>60 ml/min/1.73 sqM); Alkaline Phosphatase 77 U/L (38-126); Anion Gap 9 mmol/L; Blood Urea Nitrogen 33 mg/dL (9-20); C Reactive Protein 5.7 mg/dL (<1.0); Calcium 10.2 mg/dL (8.4-10.2); Carbon Dioxide 26 mmol/L (22-30); Chloride 103 mmol/L (98-107); Glucose 169 mg/dL (74-99); Non-African American GFR(CKD) 69 (>60 ml/min/1.73 sqM); Potassium 4.1 mmol/L (3.5-5.1); Sodium 138 mmol/L (137-145); Total Bilirubin 0.3 mg/dL (0.2-1.3); Total Protein 5.7 g/dL (6.3-8.2)
--- NOTE | 2022-08-29 14:49 | XR ---
EXAMINATION TYPE: XR chest 2V DATE OF EXAM: 08/29/2022 COMPARISON: 07/25/2022, 07/18/2022 TECHNIQUE: PA and lateral views submitted. HISTORY: Shortness of breath FINDINGS: Persistent small to moderate sized bilateral pleural effusions and associated bibasilar opacity. Uppe r lungs remain clear without pneumothorax. Cardiac silhouette size stable within normal limits. Diffuse osteopenia with arthropathy of the shoulders and hypertrophic and degenerative change of the spine. There is a superior endplate compression deformity mid to upper thoracic spine is stable from prior exam. Chronic rib deformities noted. IMPRESSION: 1. Bilateral infiltrate and pleural effusion correlate for mild CHF otherwise consider pneumonia..
--- NOTE | 2022-08-29 14:50 | XR ---
EXAMINATION TYPE: XR KUB DATE OF EXAM: 08/29/2022 COMPARISON: NONE HISTORY: Pain TECHNIQUE: One view abdominal series FINDINGS: The osseous structures are intact. The bowel gas pattern is nonspecific. Surgical clips gallbladder fossa. Bilateral lower lobe infiltrate and small effusion. Hypertrophic and degenerative change of th e spine. Vascular calcifications. There are chronic lower left rib cage deformities. Arthropathy of t he hips. Diffuse osteopenia. IMPRESSION: 1. Nonspecific abdomen. 2. Bilateral lower lobe infiltrate and small effusion.
[2022-08-29] MEDS ORDERED: AMPICILLIN-SULBACTAM 3 GM in SODIUM CHLORIDE 0.9% 100 ML IVPB STA (15:18)
[2022-08-29] MEDS ORDERED: NALOXONE 0.4 MG/ML 1 ML VIAL IV PRN (15:24)
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
[2022-08-29 15:48] LABS: Erythrocyte Sedimentation Rate 69 mm/hr (0-15)
[2022-08-29] MEDS ORDERED: IPRATROPIUM-ALBUTEROL 3 ML NEB INHALATION SCH (16:00)
[2022-08-29] MEDS: PIPERACILLIN-TAZOBACTAM 3.375 GM in SODIUM CHLORIDE 0.9% 100 ML IVPB SCH (16:27)
[2022-08-29] MEDS ORDERED: IPRATROPIUM-ALBUTEROL 3 ML NEB INHALATION PRN (16:48)
[2022-08-29] MEDS: FLUCONAZOLE 100 MG TAB PO SCH (17:53)
[2022-08-29] MEDS: NYSTATIN 100,000 UNIT/GM POWD 15 GM TOPICAL SCH ×2 (17:53→21:56)
[2022-08-29 18:18] LABS: Appearance,Urine Clear (Clear); Bilirubin,Urine Negative (Negative); Blood,Urine Negative (Negative); Color,Urine Yellow; Glucose,Urine (UA) 1+ (Negative); Hyaline Casts,Urine 3 /lpf (0-2); Ketones,Urine Negative (Negative); Leukocyte Esterase,Urine Large (Negative); Mucus,Urine Occasional /hpf; Nitrite,Urine Negative (Negative); PH, Urine 5.5 (5.0-8.0); Protein,Urine 1+ (Negative); RBC,Urine 4 /hpf (0-5); Specific Gravity,Urine 1.021 (1.001-1.035); Squamous Epithelial Cell,Urine 3 /hpf (0-4); Urobilinogen,Urine <2.0 mg/dL (<2.0); WBC,Urine 21 /hpf (0-5)
[2022-08-29] MEDS: IPRATROPIUM-ALBUTEROL 3 ML NEB INHALATION SCH (20:58)
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
[2022-08-30] MEDS: PIPERACILLIN-TAZOBACTAM 3.375 GM in SODIUM CHLORIDE 0.9% 100 ML IVPB SCH ×3 (00:20→17:04)
--- NOTE | 2022-08-30 02:29 | HP ---
HISTORY AND PHYSICAL CHIEF COMPLAINT: Shortness of breath and extreme weakness. HISTORY OF PRESENT ILLNESS: This is an 82-year-old gentleman with a past medical history of multiple medical problems, who recently had right knee infection. Patient was up in rehab, patient went home, but according to the family, the patient became progressively weak and short of breath. The patient was taken to [facility]. Patient was little confused, bilateral pneumonia suspected. Patient also had significant infection and macerations around the penile area around the scrotum and also his groin area. The patient was admitted for further evaluation and treatment. Early sepsis suspected. PAST MEDICAL HISTORY: Reviewed, include recent right knee infection, atrial fibrillation, rest of the history and rest of the chart is also reviewed. HOME MEDICATIONS: Again reviewed include prednisone, dose and rest of medications reviewed, they are not confirmed yet. ALLERGIES: [place], rest of the allergies are noted. FAMILY HISTORY, SOCIAL HISTORY, REVIEW OF SYSTEMS: Could not be taken because of the patient's change in mental status. PHYSICAL EXAMINATION: VITAL SIGNS: Pulse 103, blood pressure 117/77, and respirations 22. HEENT: Conjunctivae normal. NECK: No jugular venous distention. CARDIOVASCULAR: S1, S2 muffled. RESPIRATIONS: Few scattered rhonchi. ABDOMEN: Soft, nontender. LEGS: No edema, no swelling. Left heel infection present, otherwise nervous system diffusely weak. SKIN: Significant maceration, erythema, cellulitis, and excoriation in the penile area and rest of both scrotum present. JOINTS: No active deforming arthropathy. NERVOUS SYSTEM: Diffusely weak, could not be examined completely. LABORATORY DATA: Reviewed. ASSESSMENT: 1. Bilateral pneumonia with possible sepsis. 2. Severe cellulitis with maceration in the penile, scrotal and inguinal area with possible sepsis present on admission. 3. Atrial fibrillation. 4. History of CHF. 5. Chronic obstructive pulmonary disease. 6. Diabetes mellitus type 2. 7. Hypertension. 8. Hyperlipidemia. RECOMMENDATIONS AND DISCUSSION: This 82-year-old gentleman presented with multiple complex medical issues, we will monitor the patient closely. Continue with current management, continue symptomatic treatment. We will initiate broad-spectrum IV antibiotics and obtain Infectious Disease evaluation. Obtain cultures. I would also recommend pulmonary consultation because of concerns of COPD and as well as pneumonia also. Otherwise resume the home medications once they are confirmed. PT OT evaluation, possible ECF rehab. Prognosis extremely guarded because of multiple complex medical issues. Further recommendations to follow, see orders for details. MMODL / IJN: [id number] /
[2022-08-30 06:20] LABS: African American GFR (CKD) 79 (>60 ml/min/1.73 sqM); Anion Gap 6 mmol/L; Blood Urea Nitrogen 29 mg/dL (9-20); Calcium 9.9 mg/dL (8.4-10.2); Carbon Dioxide 27 mmol/L (22-30); Chloride 105 mmol/L (98-107); Glucose 175 mg/dL (74-99); Non-African American GFR(CKD) 69 (>60 ml/min/1.73 sqM); Potassium 3.6 mmol/L (3.5-5.1); Sodium 138 mmol/L (137-145)
[2022-08-30 06:29] LABS: NT-Pro-B-Type Natriuretic Pept 528 pg/mL
[2022-08-30] MEDS: IPRATROPIUM-ALBUTEROL 3 ML NEB INHALATION SCH ×4 (08:01→20:06)
[2022-08-30] MEDS: NYSTATIN 100,000 UNIT/GM POWD 15 GM TOPICAL SCH ×6 (10:12→20:06)
[2022-08-30] MEDS: FLUCONAZOLE 100 MG TAB PO SCH (10:12)
[2022-08-30] MEDS: PANTOPRAZOLE 40 MG TABLET PO SCH (10:13)
[2022-08-30 10:29] LABS: Basophils # (A) 0.09 X 10*3/uL (0.00-0.10); Basophils % (A) 0.8 %; Eosinophils # (A) 0.17 X 10*3/uL (0.04-0.35); Eosinophils % (A) 1.6 %; HCT 36.2 % (39.6-50.0); HGB 11.6 d/dL (12.0-15.0); Lymphocytes # (A) 0.89 X 10*3/uL (0.90-5.00); Lymphocytes % (A) 8.4 %; MCH 29.5 pg (27.0-32.0); MCV 92.1 FL (80.0-97.0); Mean Platelet Volume 10.1 FL (9.5-12.2); Monocytes # (A) 1.02 X 10*3/uL (0.20-1.00); Monocytes % (A) 9.6 %; NRBC Per 100 WBC 0 X 10*3/uL (0.00-0.01); Neutrophils % (A) 77.5 %; Platelet Count 552 X 10*3/uL (140-440); RBC 3.93 X 10*6/uL (4.40-5.60); RDW 15.1 % (11.5-14.5); WBC 10.59 X 10*3/uL (4.50-10.00)
[2022-08-30] MEDS ORDERED: IPRATROPIUM-ALBUTEROL 3 ML NEB INHALATION PRN (12:00)
--- NOTE | 2022-08-30 12:05 | PN ---
PROGRESS NOTE DATE OF SERVICE: 08/30/2022 SUBJECTIVE: This is an 82-year-old gentleman, admitted with significant change in mental status, significant sepsis, and cellulitis around the perineal area, as well as pneumonia, is being closely monitored. The patient also has incontinence of urine, also Ingram catheter cannot be inserted. PAST MEDICAL HISTORY: Reviewed. REVIEW OF SYSTEMS: Could not be taken. CURRENT MEDICATIONS: Reviewed include Zosyn. Rest of the medications noted. PHYSICAL EXAMINATION: VITAL SIGNS: Pulse is 91, blood pressure 170/58, respirations 18. HEENT: Conjunctivae normal. NECK: No jugular venous distention. CARDIOVASCULAR: S1, S2 muffled. RESPIRATIONS: Breath sounds diminished at the bases. ABDOMEN: Soft. SKIN: Perineal area excoriation cellulitis present. LABORATORY DATA: Reviewed. ASSESSMENT: 1. Bilateral pneumonia with possible sepsis. 2. Severe cellulitis and maceration of the penile, scrotal, inguinal area, perineal area with possible sepsis present on admission. 3. Atrial fibrillation. 4. History of congestive heart failure. 5. Chronic obstructive pulmonary disease. 6. Diabetes mellitus, type 2. 7. Hypertension. 8. Hyperlipidemia. 9. Gait dysfunction. 10.Multiple medical issues. RECOMMENDATIONS: Recommend to continue current medications, continue symptomatic treatment. Otherwise continue with broad-spectrum IV antibiotics. Ingram catheter insertion. Closely follow with Pulmonary. PT, OT evaluation. Repeat labs. Overall prognosis extremely guarded because of multiple complex medical issues and further recommendations to follow. Add Diflucan to the current regimen. Cultures. Infectious Disease evaluation. Discussed with at the bedside. Further recommendations to follow. See orders for further details. MMODL / IJN: [id number] /
[2022-08-30] MEDS ORDERED: FLUCONAZOLE IN NACL,ISO-OSM 100 MG in SALINE 1 50ML.BAG IVPB SCH (12:15)
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
[2022-08-30] MEDS: NON FORMULARY DRUG (Prevagen 1 CAP) PO SCH (14:17)
[2022-08-30] MEDS: RIVASTIGMINE TARTRATE 3 MG PO SCH ×2 (14:17→21:22)
[2022-08-30] MEDS: SPIRONOLACTONE 25 MG TAB PO SCH (14:19)
[2022-08-30] MEDS: THIAMINE 100 MG TAB PO SCH (14:19)
[2022-08-30] MEDS: MULTIVITAMINS, THERA 1 EACH TAB PO SCH (14:19)
[2022-08-30] MEDS: FOLIC ACID 1 MG TAB PO SCH (14:19)
[2022-08-30] MEDS: TAMSULOSIN 0.4 MG CAP.ER.24H PO SCH (14:19)
--- NOTE | 2022-08-30 15:03 | P.PN ---
Subjective Progress Note Date: 08/30/22 Principal diagnosis: Scrotal and groin area Cutaneous candidiasis and possible UTI Patient is a 82-year-old male with recent multiple admission in the hospital initial concern for the right knee septic arthritis status post I&D cultures were negative afterwards the patient did have admission to hospital with pneumonia and sputum was positive for Pseudomonas for which the patient has completed antibiotic therapy, patient has not been brought back to the hospital concerning for significant excoriation to his scrotal and groin area and weeping edema and also concerning for weakness. On today's evaluation that is 08/30/2022, the patient is afebrile, the patient is breathing comfortably on room air patient denies any chest pain or shortness of breath or cough scrotal area discomfort has decreased in intensity nausea no vomiting and no diarrhea Objective - Vital Signs Vital signs: Vital Signs Temp 97.1 F L 08/29/22 21:59 Pulse 92 08/30/22 11:40 Resp 18 08/30/22 10:17 BP 117/58 08/30/22 10:17 Pulse Ox 97 08/30/22 10:17 FiO2 Intake & Output 08/29/22 08/30/22 08/30/22 18:59 06:59 18:59 Weight 90.718 kg - Exam GENERAL DESCRIPTION: An elderly male lying in bed in no distress RESPIRATORY SYSTEM: Unlabored breathing , decreased breath sounds at bases HEART: S1 S2 regular rate and rhythm , ABDOMEN: Soft , no tenderness : Scrotal groin area excoriation has decreased EXTREMITIES: No edema feet - Labs CBC & Chem 7: 08/30/22 05:42 08/30/22 05:42 Labs: Abnormal Lab Results - Last 24 Hours (Table) 08/29/22 08/29/22 08/29/22 Range/Units 14:03 14:03 14:03 WBC 16.5 H (3.8-10.6) k/uL RBC 4.22 L (4.30-5.90) m/uL Hgb 12.5 L (13.0-17.5) gm/dL Hct (39.6-50.0) % RDW (11.5-14.5) % Plt Count 614 H (150-450) k/uL Neutrophils # 13.9 H (1.3-7.7) k/uL Lymphocytes # (0.90-5.00) X 10*3/uL Monocytes # (0.20-1.00) X 10*3/uL ESR 69 H (0-15) mm/hr BUN 33 H (9-20) mg/dL Glucose 169 H (74-99) mg/dL C-Reactive Protein 5.7 H (<1.0) mg/dL Total Protein 5.7 L (6.3-8.2) g/dL Albumin 3.0 L (3.5-5.0) g/dL Procalcitonin (0.02-0.09) ng/mL Urine Protein 1+ H (Negative) Urine Glucose (UA) 1+ H (Negative) Ur Leukocyte Esterase Large H (Negative) Urine WBC 21 H (0-5) /hpf Hyaline Casts 3 H (0-2) /lpf Urine Mucus Occasional H (None) /hpf 08/29/22 08/30/22 08/30/22 Range/Units 14:03 05:42 05:42 WBC 10.59 H (3.8-10.6) k/uL RBC 3.93 L (4.30-5.90) m/uL Hgb 11.6 L (13.0-17.5) gm/dL Hct 36.2 L (39.6-50.0) % RDW 15.1 H (11.5-14.5) % Plt Count 552 H (150-450) k/uL Neutrophils # 8.20 H (1.3-7.7) k/uL Lymphocytes # 0.89 L (0.90-5.00) X 10*3/uL Monocytes # 1.02 H (0.20-1.00) X 10*3/uL ESR (0-15) mm/hr BUN 29 H (9-20) mg/dL Glucose 175 H (74-99) mg/dL C-Reactive Protein (<1.0) mg/dL Total Protein (6.3-8.2) g/dL Albumin (3.5-5.0) g/dL Procalcitonin 0.20 H (0.02-0.09) ng/mL Urine Protein (Negative) Urine Glucose (UA) (Negative) Ur Leukocyte Esterase (Negative) Urine WBC (0-5) /hpf Hyaline Casts (0-2) /lpf Urine Mucus (None) /hpf Assessment and Plan (1) Cutaneous candidiasis Current Visit: Yes Status: Acute Code(s): B37.2 - CANDIDIASIS OF SKIN AND NAIL SNOMED Code(s): 13972620 (2) Leukocytosis Current Visit: Yes Status: Acute Code(s): D72.829 - ELEVATED WHITE BLOOD CELL COUNT, UNSPECIFIED SNOMED Code(s): 047282542 (3) URI (upper respiratory infection) Current Visit: No Status: Acute Code(s): J06.9 - ACUTE UPPER RESPIRATORY INFECTION, UNSPECIFIED SNOMED Code(s): 27715252 Plan: 1patient with the hospital with weakness and progressive decline in this patient noted to have elevated white count source is multifactorial in this patient with extensive cutaneous candidiasis involving the scrotal and groin area, and did have mild positive UA concerning for possible UTI 2-patient to continue with nystatin powder to the groin and oral Diflucan 3-patient to continue with the Zosyn while waiting for cultures to finalize
[2022-08-30] MEDS: NYSTATIN 100,000UNIT/GM CREAM 30 GM TUBE TOPICAL SCH ×2 (17:32→20:05)
[2022-08-30] MEDS: OFLOXACIN 0.3% OPHTH DROPS 5 ML BOTTLE BOTH EYES SCH ×2 (17:34→20:05)
[2022-08-30] MEDS ORDERED: VANCOMYCIN IV PER PHARMACY 1 EACH MISC MISCELLANE PRN (19:21)
[2022-08-30] MEDS ORDERED: VANCOMYCIN 1,500 MG in SODIUM CHLORIDE 0.9% 500 ML 500 ML IVPB ONE (19:30)
[2022-08-30] MEDS: APIXABAN 5 MG TAB PO SCH (20:04)
[2022-08-30] MEDS: ATORVASTATIN 20 MG TAB PO SCH (20:04)
[2022-08-30] MEDS: METOPROLOL SUCCINATE (ER) 25 MG TAB.ER.24H PO SCH (20:05)
[2022-08-30] MEDS: SYMBICORT 160-4.5 MCG INHALER INHALATION SCH (20:06)
[2022-08-30 20:37] LABS: Glucose,Whole Blood 261 mg/dL (70-110)
[2022-08-31 06:42] LABS: Glucose,Whole Blood 218 mg/dL (70-110)
[2022-08-31] MEDS: INSULIN ASPART (NovoLOG) 100 UNIT/ML VIAL SQ SCH ×4 (06:46→21:49)
[2022-08-31] MEDS: PANTOPRAZOLE 40 MG TABLET PO SCH (06:46)
[2022-08-31] MEDS ORDERED: VANCOMYCIN 1,500 MG in SODIUM CHLORIDE 0.9% 500 ML 500 ML IVPB SCH (08:00)
[2022-08-31] MEDS: APIXABAN 5 MG TAB PO SCH ×2 (08:14→21:49)
[2022-08-31] MEDS: TAMSULOSIN 0.4 MG CAP.ER.24H PO SCH (08:14)
[2022-08-31] MEDS: SPIRONOLACTONE 25 MG TAB PO SCH (08:14)
[2022-08-31] MEDS: FOLIC ACID 1 MG TAB PO SCH (08:14)
[2022-08-31] MEDS: NON FORMULARY DRUG (Prevagen 1 CAP) PO SCH (08:15)
[2022-08-31] MEDS: RIVASTIGMINE TARTRATE 3 MG PO SCH ×2 (08:15→21:49)
[2022-08-31] MEDS: MULTIVITAMINS, THERA 1 EACH TAB PO SCH (08:15)
[2022-08-31] MEDS: FUROSEMIDE 40 MG TAB PO SCH (08:15)
[2022-08-31] MEDS: FLUCONAZOLE 100 MG TAB PO SCH (08:15)
[2022-08-31] MEDS: THIAMINE 100 MG TAB PO SCH (08:15)
[2022-08-31] MEDS: NYSTATIN 100,000UNIT/GM CREAM 30 GM TUBE TOPICAL SCH ×3 (08:16→21:48)
[2022-08-31] MEDS: NYSTATIN 100,000 UNIT/GM POWD 15 GM TOPICAL SCH ×3 (08:16→21:48)
[2022-08-31] MEDS: OFLOXACIN 0.3% OPHTH DROPS 5 ML BOTTLE BOTH EYES SCH ×3 (08:16→21:48)
[2022-08-31] MEDS: IPRATROPIUM-ALBUTEROL 3 ML NEB INHALATION SCH ×4 (09:00→19:58)
[2022-08-31] MEDS: SYMBICORT 160-4.5 MCG INHALER INHALATION SCH ×2 (09:01→19:58)
[2022-08-31 11:04] LABS: Basophils % (A) 0.8 %; Eosinophils # (A) 0.31 X 10*3/uL (0.04-0.35); Eosinophils % (A) 2.5 %; HCT 34.8 % (39.6-50.0); Lymphocytes # (A) 1.05 X 10*3/uL (0.90-5.00); Lymphocytes % (A) 8.3 %; MCH 29.6 pg (27.0-32.0); MCHC 31.6 d/dL (32.0-37.0); MCV 93.8 FL (80.0-97.0); Mean Platelet Volume 10.3 FL (9.5-12.2); Monocytes # (A) 1.22 X 10*3/uL (0.20-1.00); Monocytes % (A) 9.7 %; NRBC Per 100 WBC 0 X 10*3/uL (0.00-0.01); Neutrophils # (A) 9.66 X 10*3/uL (1.80-7.70); Neutrophils % (A) 76.8 %; Platelet Count 511 X 10*3/uL (140-440); RBC 3.71 X 10*6/uL (4.40-5.60); RDW 15.3 % (11.5-14.5); WBC 12.58 X 10*3/uL (4.50-10.00)
[2022-08-31 11:15] LABS: BUN/Creat Ratio 16.67 Ratio (12.00-20.00); Calcium 9.6 mg/dL (8.7-10.3); Carbon Dioxide 23.4 mmol/L (21.6-31.8); Chloride 108 mmol/L (96-109); Glucose 222 mg/dL (70-110); Potassium 4.2 mmol/L (3.5-5.5); Sodium 142 mmol/L (135-145)
[2022-08-31 11:22] LABS: Glucose,Whole Blood 239 mg/dL (70-110)
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
[2022-08-31 14:50] VITALS: BMI 25.7
[2022-08-31] MEDS: CEFEPIME 2 GM in SODIUM CHLORIDE 0.9% 100 ML IVPB SCH (14:55)
[2022-08-31 16:31] LABS: Glucose,Whole Blood 279 mg/dL (70-110)
--- NOTE | 2022-08-31 16:49 | P.PN ---
Subjective Progress Note Date: 08/31/22 Principal diagnosis: Scrotal and groin area Cutaneous candidiasis and possible UTI Patient is a 82-year-old male with recent multiple admission in the hospital initial concern for the right knee septic arthritis status post I&D cultures were negative afterwards the patient did have admission to hospital with pneumonia and sputum was positive for Pseudomonas for which the patient has completed antibiotic therapy, patient has not been brought back to the hospital concerning for significant excoriation to his scrotal and groin area and weeping edema and also concerning for weakness. On today's evaluation that is 08/31/2022, the patient remains to be afebrile, the patient is breathing comfortably on room air, patient denies any chest pain or shortness of breath or cough , the patient scrotal area discomfort has decreased in intensity nausea no vomiting and no diarrhea Objective - Vital Signs Vital signs: Vital Signs Temp 98.1 F 08/31/22 07:20 Pulse 60 08/31/22 09:11 Resp 16 08/31/22 07:20 BP 145/68 08/31/22 07:20 Pulse Ox 98 08/31/22 07:20 FiO2 Intake & Output 08/30/22 08/31/22 08/31/22 18:59 06:59 18:59 Intake Total 100 600 Output Total 500 Balance 100 100 Weight 90.718 kg Intake: Intake, IV Titration 100 600 Amount Piperacillin-Tazobactam 3 100 100 .375 gm In Sodium Chloride 0.9% 100 ml @ 25 mls/hr IVPB Q8HR [facility] Rx# :[id number] Vancomycin 1,500 mg In 500 Sodium Chloride 0.9% 500 ml 500 ml @ 167 mls/hr IVPB Q12H [facility] Rx#: [id number] Output: Post Void Residual 500 Other: Voiding Method External Catheter External Catheter # Voids 2 - Exam GENERAL DESCRIPTION: An elderly male lying in bed in no distress RESPIRATORY SYSTEM: Unlabored breathing , decreased breath sounds at bases HEART: S1 S2 regular rate and rhythm , ABDOMEN: Soft , no tenderness : Scrotal groin area excoriation has decreased EXTREMITIES: No edema feet - Labs CBC & Chem 7: 08/31/22 06:25 08/31/22 06:25 Labs: Abnormal Lab Results - Last 24 Hours (Table) 07/04/23 07/05/23 07/05/23 Range/Units 20:35 06:25 06:25 WBC 12.58 H (4.50-10.00) X 10*3/uL RBC 3.71 L (4.40-5.60) X 10*6/uL Hgb 11.0 L (12.0-15.0) d/dL Hct 34.8 L (39.6-50.0) % MCHC 31.6 L (32.0-37.0) d/dL RDW 15.3 H (11.5-14.5) % Plt Count 511 H (140-440) X 10*3/uL Neutrophils # 9.66 H (1.80-7.70) X 10*3/uL Monocytes # 1.22 H (0.20-1.00) X 10*3/uL Glucose 222 H (70-110) mg/dL POC Glucose (mg/dL) 261 H (70-110) mg/dL 08/31/22 08/31/22 Range/Units 06:41 11:22 WBC (4.50-10.00) X 10*3/uL RBC (4.40-5.60) X 10*6/uL Hgb (12.0-15.0) d/dL Hct (39.6-50.0) % MCHC (32.0-37.0) d/dL RDW (11.5-14.5) % Plt Count (140-440) X 10*3/uL Neutrophils # (1.80-7.70) X 10*3/uL Monocytes # (0.20-1.00) X 10*3/uL Glucose (70-110) mg/dL POC Glucose (mg/dL) 218 H 239 H (70-110) mg/dL Microbiology - Last 24 Hours (Table) 08/29/22 15:26 Gram Stain - Preliminary Groin Wound Culture - Preliminary Presumptive MRSA Gram Neg Bacilli 08/29/22 14:03 Blood Culture - Preliminary Blood 08/29/22 14:03 Blood Culture Gram Stain - Preliminary Blood Assessment and Plan (1) Cutaneous candidiasis Current Visit: Yes Status: Acute Code(s): B37.2 - CANDIDIASIS OF SKIN AND NAIL SNOMED Code(s): 46749591 (2) MRSA bacteremia Current Visit: Yes Status: Acute Code(s): R78.81 - BACTEREMIA; B95.62 - METHICILLIN RESIS STAPH INFCT CAUSING DISEASES CLASSD ELSWHR SNOMED Code(s): 31765471312448444 (3) Cellulitis of groin Current Visit: Yes Status: Acute Code(s): L03.314 - CELLULITIS OF GROIN SNOMED Code(s): 93432885 Plan: 1patient with the hospital with weakness and progressive decline in this patient noted to have elevated white count source is multifactorial in this patient with extensive cutaneous candidiasis involving the scrotal and groin area, and did have mild positive UA concerning for possible UTI 2-patient did have MRSA bacteremia and the cultures obtained from the groin area is growing MRSA and gram-negative 3-blood cultures will be repeated document clearance of bacteremia 4-patient to continue the vancomycin and cefepime to cover for the gram-negative at the bedside questions were answered
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
[2022-08-31 21:41] LABS: Glucose,Whole Blood 157 mg/dL (70-110)
[2022-08-31] MEDS: ATORVASTATIN 20 MG TAB PO SCH (21:49)
[2022-08-31] MEDS: METOPROLOL SUCCINATE (ER) 25 MG TAB.ER.24H PO SCH (21:49)
[2022-08-31] MEDS: VANCOMYCIN 1,500 MG in SODIUM CHLORIDE 0.9% 500 ML 500 ML IVPB SCH (23:07)
[2022-09-01] MEDS: CEFEPIME 2 GM in SODIUM CHLORIDE 0.9% 100 ML IVPB SCH ×3 (02:40→16:07)
[2022-09-01 05:50] LABS: Glucose,Whole Blood 221 mg/dL (70-110)
[2022-09-01] MEDS: INSULIN ASPART (NovoLOG) 100 UNIT/ML VIAL SQ SCH ×4 (05:58→21:58)
[2022-09-01] MEDS: PANTOPRAZOLE 40 MG TABLET PO SCH (05:58)
[2022-09-01 07:30] LABS: African American GFR (CKD) 86 (>60 ml/min/1.73 sqM); Anion Gap 7 mmol/L; Blood Urea Nitrogen 19 mg/dL (9-20); Calcium 9.6 mg/dL (8.4-10.2); Carbon Dioxide 24 mmol/L (22-30); Chloride 108 mmol/L (98-107); Glucose 196 mg/dL (74-99); Non-African American GFR(CKD) 74 (>60 ml/min/1.73 sqM); Potassium 3.8 mmol/L (3.5-5.1); Sodium 139 mmol/L (137-145)
[2022-09-01] MEDS: APIXABAN 5 MG TAB PO SCH ×2 (08:49→21:57)
[2022-09-01] MEDS: THIAMINE 100 MG TAB PO SCH (08:49)
[2022-09-01] MEDS: MULTIVITAMINS, THERA 1 EACH TAB PO SCH (08:49)
[2022-09-01] MEDS: TAMSULOSIN 0.4 MG CAP.ER.24H PO SCH (08:49)
[2022-09-01] MEDS: SPIRONOLACTONE 25 MG TAB PO SCH (08:49)
[2022-09-01] MEDS: FLUCONAZOLE 100 MG TAB PO SCH (08:49)
[2022-09-01] MEDS: FOLIC ACID 1 MG TAB PO SCH (08:49)
[2022-09-01] MEDS: FUROSEMIDE 40 MG TAB PO SCH (08:49)
[2022-09-01] MEDS: OFLOXACIN 0.3% OPHTH DROPS 5 ML BOTTLE BOTH EYES SCH ×3 (08:50→21:59)
[2022-09-01] MEDS: NYSTATIN 100,000 UNIT/GM POWD 15 GM TOPICAL SCH ×3 (08:50→22:00)
[2022-09-01] MEDS: NYSTATIN 100,000UNIT/GM CREAM 30 GM TUBE TOPICAL SCH ×3 (08:50→22:00)
[2022-09-01] MEDS: NON FORMULARY DRUG (Prevagen 1 CAP) PO SCH (08:51)
--- NOTE | 2022-09-01 08:51 | P.PN ---
Subjective Progress Note Date: 08/31/22 He feels his scrotal pain has improved since yesterday. Pt afebrile, denies chest pain, shortness of breath, fever, chills. Wound culture growing presumptive MRSA Objective - Vital Signs Vital signs: Vital Signs Temp 98.0 F 09/01/22 07:26 Pulse 44 L 09/01/22 07:26 Resp 18 09/01/22 07:26 BP 133/56 09/01/22 07:26 Pulse Ox 94 L 09/01/22 07:26 FiO2 Intake & Output 08/31/22 09/01/22 09/01/22 18:59 06:59 18:59 Intake Total 600 Output Total 500 Balance 100 Weight 90.718 kg Intake: Intake, IV Titration 600 Amount Piperacillin-Tazobactam 3 100 .375 gm In Sodium Chloride 0.9% 100 ml @ 25 mls/hr IVPB Q8HR [facility] Rx# :[id number] Vancomycin 1,500 mg In 500 Sodium Chloride 0.9% 500 ml 500 ml @ 167 mls/hr IVPB Q12H [facility] Rx#: [id number] Output: Post Void Residual 500 Other: Voiding Method Urinal # Voids 1 - Exam Gen: elderly male in NAD CV: RRR Lungs: Normal effort, clear throughout Skin: scrotal erythema, tenderness. Not indurated - Labs CBC & Chem 7: 08/31/22 06:25 09/01/22 06:36 Labs: Abnormal Lab Results - Last 24 Hours (Table) 08/31/22 08/31/22 08/31/22 Range/Units 06:25 06:25 11:22 WBC 12.58 H (4.50-10.00) X 10*3/uL RBC 3.71 L (4.40-5.60) X 10*6/uL Hgb 11.0 L (12.0-15.0) d/dL Hct 34.8 L (39.6-50.0) % MCHC 31.6 L (32.0-37.0) d/dL RDW 15.3 H (11.5-14.5) % Plt Count 511 H (140-440) X 10*3/uL Neutrophils # 9.66 H (1.80-7.70) X 10*3/uL Monocytes # 1.22 H (0.20-1.00) X 10*3/uL Chloride (98-107) mmol/L Glucose 222 H (70-110) mg/dL POC Glucose (mg/dL) 239 H (70-110) mg/dL 08/31/22 08/31/22 09/01/22 Range/Units 16:30 21:39 05:48 WBC (4.50-10.00) X 10*3/uL RBC (4.40-5.60) X 10*6/uL Hgb (12.0-15.0) d/dL Hct (39.6-50.0) % MCHC (32.0-37.0) d/dL RDW (11.5-14.5) % Plt Count (140-440) X 10*3/uL Neutrophils # (1.80-7.70) X 10*3/uL Monocytes # (0.20-1.00) X 10*3/uL Chloride (98-107) mmol/L Glucose (70-110) mg/dL POC Glucose (mg/dL) 279 H 157 H 221 H (70-110) mg/dL 09/01/22 Range/Units 06:36 WBC (4.50-10.00) X 10*3/uL RBC (4.40-5.60) X 10*6/uL Hgb (12.0-15.0) d/dL Hct (39.6-50.0) % MCHC (32.0-37.0) d/dL RDW (11.5-14.5) % Plt Count (140-440) X 10*3/uL Neutrophils # (1.80-7.70) X 10*3/uL Monocytes # (0.20-1.00) X 10*3/uL Chloride 108 H (98-107) mmol/L Glucose 196 H (70-110) mg/dL POC Glucose (mg/dL) (70-110) mg/dL Microbiology - Last 24 Hours (Table) 08/29/22 14:03 Blood Culture - Preliminary Blood 08/29/22 15:26 Gram Stain - Preliminary Groin Wound Culture - Preliminary Presumptive MRSA Gram Neg Bacilli Assessment and Plan Plan: Continue with current medical regimen, local wound care, cefepime, vancomycin. ID following
[2022-09-01] MEDS: RIVASTIGMINE TARTRATE 3 MG PO SCH ×2 (08:53→21:57)
[2022-09-01] MEDS: IPRATROPIUM-ALBUTEROL 3 ML NEB INHALATION SCH ×4 (09:01→21:16)
[2022-09-01] MEDS: SYMBICORT 160-4.5 MCG INHALER INHALATION SCH ×2 (09:01→21:16)
[2022-09-01] MEDS ORDERED: bisacodyL 10 MG SUPP RECTAL STA (10:15)
[2022-09-01 11:36] LABS: Glucose,Whole Blood 283 mg/dL (70-110)
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
[2022-09-01 16:49] LABS: Glucose,Whole Blood 198 mg/dL (70-110)
[2022-09-01] MEDS: VANCOMYCIN 1,500 MG in SODIUM CHLORIDE 0.9% 500 ML 500 ML IVPB SCH (17:25)
--- NOTE | 2022-09-01 18:23 | P.PN ---
Subjective Progress Note Date: 09/01/22 Principal diagnosis: Phimosis, urinary incontinence Mr. Lovelace is resting comfortably. He continues to be incontinent of urine. Objective - Vital Signs Vital signs: Vital Signs Temp 98.9 F 09/01/22 14:00 Pulse 80 09/01/22 15:54 Resp 19 09/01/22 14:00 BP 108/66 09/01/22 14:00 Pulse Ox 90 L 09/01/22 14:00 FiO2 Intake & Output 08/31/22 09/01/22 09/01/22 18:59 06:59 18:59 Intake Total 600 Output Total 500 Balance 100 Weight 90.718 kg Intake: Intake, IV Titration 600 Amount Piperacillin-Tazobactam 3 100 .375 gm In Sodium Chloride 0.9% 100 ml @ 25 mls/hr IVPB Q8HR [facility] Rx# :[id number] Vancomycin 1,500 mg In 500 Sodium Chloride 0.9% 500 ml 500 ml @ 167 mls/hr IVPB Q12H [facility] Rx#: [id number] Output: Post Void Residual 500 Other: Voiding Method Urinal Urinal Incontinent # Voids 1 - Constitutional General appearance: Present: average body habitus, no acute distress - Respiratory Details: Normal respiratory effort. - Labs CBC & Chem 7: 08/31/22 06:25 09/01/22 06:36 Labs: Abnormal Lab Results - Last 24 Hours (Table) 08/31/22 09/01/22 09/01/22 Range/Units 21:39 05:48 06:36 Chloride 108 H (98-107) mmol/L Glucose 196 H (74-99) mg/dL POC Glucose (mg/dL) 157 H 221 H (70-110) mg/dL 09/01/22 09/01/22 Range/Units 11:35 16:48 Chloride (98-107) mmol/L Glucose (74-99) mg/dL POC Glucose (mg/dL) 283 H 198 H (70-110) mg/dL Microbiology - Last 24 Hours (Table) 08/29/22 14:03 Blood Culture Gram Stain - Final Blood Blood Culture - Final Methicillin resist S. aureus 08/31/22 03:55 Urine Culture - Final Urine,Voided 08/29/22 15:26 Gram Stain - Final Groin Wound Culture - Final Methicillin resist S. aureus Klebsiella pneumoniae Pseudomonas aeruginosa 08/29/22 14:03 Blood Culture - Preliminary Blood Assessment and Plan Assessment: The patient has been found to have MRSA bacteremia. Cultures of the groin area have shown MRSA, Klebsiella, and Pseudomonas. Urinalysis showed pyuria, but a urine culture was negative. The postvoid residual was approximately 500 mL. I have reviewed a CT scan performed in February 2022, which showed the bladder to be moderately distended with no evidence of hydronephrosis. (1) Phimosis Current Visit: Yes Status: Acute Code(s): N47.1 - PHIMOSIS SNOMED Code(s): 701347731 (2) Unspecified urinary incontinence Current Visit: Yes Status: Acute Code(s): R32 - UNSPECIFIED URINARY INCONTINENCE SNOMED Code(s): 890848216 Plan: The postvoid residual will be repeated. The patient may indeed benefit from Ingram catheter placement, given the incomplete bladder emptying and scrotal skin breakdown. However, this must be weighed against the high likelihood that he will develop a nosocomial UTI.
[2022-09-01 20:51] LABS: Glucose,Whole Blood 230 mg/dL (70-110)
[2022-09-01] MEDS: ATORVASTATIN 20 MG TAB PO SCH (21:57)
[2022-09-01] MEDS: METOPROLOL SUCCINATE (ER) 25 MG TAB.ER.24H PO SCH (21:57)
[2022-09-02] MEDS: CEFEPIME 2 GM in SODIUM CHLORIDE 0.9% 100 ML IVPB SCH ×2 (00:03→08:37)
[2022-09-02] MEDS: PANTOPRAZOLE 40 MG TABLET PO SCH (06:01)
[2022-09-02 06:33] LABS: Glucose,Whole Blood 199 mg/dL (70-110)
[2022-09-02] MEDS: INSULIN ASPART (NovoLOG) 100 UNIT/ML VIAL SQ SCH ×4 (06:48→21:47)
[2022-09-02] MEDS ORDERED: VANCOMYCIN TROUGH DUE 1 EACH MISC MISCELLANE ONE (07:00)
[2022-09-02 07:18] LABS: African American GFR (CKD) >90 (>60 ml/min/1.73 sqM); Anion Gap 9 mmol/L; Blood Urea Nitrogen 18 mg/dL (9-20); Calcium 9.4 mg/dL (8.4-10.2); Carbon Dioxide 21 mmol/L (22-30); Chloride 106 mmol/L (98-107); Glucose 210 mg/dL (74-99); Non-African American GFR(CKD) 79 (>60 ml/min/1.73 sqM); Potassium 3.9 mmol/L (3.5-5.1); Sodium 136 mmol/L (137-145)
[2022-09-02] MEDS: SYMBICORT 160-4.5 MCG INHALER INHALATION SCH ×2 (07:53→20:13)
[2022-09-02] MEDS: IPRATROPIUM-ALBUTEROL 3 ML NEB INHALATION SCH ×4 (07:53→20:13)
[2022-09-02] MEDS: VANCOMYCIN 1,500 MG in SODIUM CHLORIDE 0.9% 500 ML 500 ML IVPB SCH (08:37)
[2022-09-02] MEDS: FOLIC ACID 1 MG TAB PO SCH (08:38)
[2022-09-02] MEDS: FLUCONAZOLE 100 MG TAB PO SCH (08:38)
[2022-09-02] MEDS: FUROSEMIDE 40 MG TAB PO SCH (08:38)
[2022-09-02] MEDS: TAMSULOSIN 0.4 MG CAP.ER.24H PO SCH (08:38)
[2022-09-02] MEDS: APIXABAN 5 MG TAB PO SCH ×2 (08:38→21:47)
[2022-09-02] MEDS: MULTIVITAMINS, THERA 1 EACH TAB PO SCH (08:38)
[2022-09-02] MEDS: THIAMINE 100 MG TAB PO SCH (08:38)
[2022-09-02] MEDS: SPIRONOLACTONE 25 MG TAB PO SCH (08:38)
[2022-09-02] MEDS: RIVASTIGMINE TARTRATE 3 MG PO SCH ×2 (08:39→21:47)
[2022-09-02] MEDS: NON FORMULARY DRUG (Prevagen 1 CAP) PO SCH (08:50)
[2022-09-02] MEDS ORDERED: ERGOCALCIFEROL 1,250 MCG (50,000 IU) CAPSULE PO SCH (09:00)
[2022-09-02 11:27] LABS: Glucose,Whole Blood 314 mg/dL (70-110)
[2022-09-02] MEDS: NYSTATIN 100,000 UNIT/GM POWD 15 GM TOPICAL SCH ×3 (12:16→21:47)
[2022-09-02] MEDS: NYSTATIN 100,000UNIT/GM CREAM 30 GM TUBE TOPICAL SCH ×3 (12:16→21:48)
[2022-09-02] MEDS: OFLOXACIN 0.3% OPHTH DROPS 5 ML BOTTLE BOTH EYES SCH ×3 (12:16→21:48)
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
[2022-09-02 16:40] LABS: Glucose,Whole Blood 298 mg/dL (70-110)
[2022-09-02] MEDS: MEROPENEM 1 GM in SODIUM CHLORIDE 0.9% 100 ML IVPB SCH ×2 (17:39→23:09)
--- NOTE | 2022-09-02 17:50 | P.PN ---
Subjective Progress Note Date: 09/01/22 Principal diagnosis: Scrotal and groin area Cutaneous candidiasis and possible UTI Patient is a 82-year-old male with recent multiple admission in the hospital initial concern for the right knee septic arthritis status post I&D cultures were negative afterwards the patient did have admission to hospital with pneumonia and sputum was positive for Pseudomonas for which the patient has completed antibiotic therapy, patient has not been brought back to the hospital concerning for significant excoriation to his scrotal and groin area and weeping edema and also concerning for weakness. On today's evaluation that is 09/01/2022 the patient remains to be afebrile, the patient is breathing comfortably no chest pain shortness of breath or cough no abdominal pain or any worsening pain to the scrotum in the groin area Objective - Vital Signs Vital signs: Vital Signs Temp 98.0 F 09/01/22 07:26 Pulse 44 L 09/01/22 07:26 Resp 18 09/01/22 07:26 BP 133/56 09/01/22 07:26 Pulse Ox 94 L 09/01/22 07:26 FiO2 Intake & Output 08/31/22 09/01/22 09/01/22 18:59 06:59 18:59 Intake Total 600 Output Total 500 Balance 100 Weight 90.718 kg Intake: Intake, IV Titration 600 Amount Piperacillin-Tazobactam 3 100 .375 gm In Sodium Chloride 0.9% 100 ml @ 25 mls/hr IVPB Q8HR [facility] Rx# :[id number] Vancomycin 1,500 mg In 500 Sodium Chloride 0.9% 500 ml 500 ml @ 167 mls/hr IVPB Q12H [facility] Rx#: [id number] Output: Post Void Residual 500 Other: Voiding Method Urinal # Voids 1 - Exam GENERAL DESCRIPTION: An elderly male lying in bed in no distress RESPIRATORY SYSTEM: Unlabored breathing , decreased breath sounds at bases HEART: S1 S2 regular rate and rhythm , ABDOMEN: Soft , no tenderness : Scrotal groin area excoriation has decreased EXTREMITIES: No edema feet - Labs CBC & Chem 7: 08/31/22 06:25 09/02/22 06:33 Labs: Abnormal Lab Results - Last 24 Hours (Table) 08/31/22 08/31/22 08/31/22 Range/Units 06:25 06:25 11:22 WBC 12.58 H (4.50-10.00) X 10*3/uL RBC 3.71 L (4.40-5.60) X 10*6/uL Hgb 11.0 L (12.0-15.0) d/dL Hct 34.8 L (39.6-50.0) % MCHC 31.6 L (32.0-37.0) d/dL RDW 15.3 H (11.5-14.5) % Plt Count 511 H (140-440) X 10*3/uL Neutrophils # 9.66 H (1.80-7.70) X 10*3/uL Monocytes # 1.22 H (0.20-1.00) X 10*3/uL Chloride (98-107) mmol/L Glucose 222 H (70-110) mg/dL POC Glucose (mg/dL) 239 H (70-110) mg/dL 08/31/22 08/31/22 09/01/22 Range/Units 16:30 21:39 05:48 WBC (4.50-10.00) X 10*3/uL RBC (4.40-5.60) X 10*6/uL Hgb (12.0-15.0) d/dL Hct (39.6-50.0) % MCHC (32.0-37.0) d/dL RDW (11.5-14.5) % Plt Count (140-440) X 10*3/uL Neutrophils # (1.80-7.70) X 10*3/uL Monocytes # (0.20-1.00) X 10*3/uL Chloride (98-107) mmol/L Glucose (70-110) mg/dL POC Glucose (mg/dL) 279 H 157 H 221 H (70-110) mg/dL 09/01/22 Range/Units 06:36 WBC (4.50-10.00) X 10*3/uL RBC (4.40-5.60) X 10*6/uL Hgb (12.0-15.0) d/dL Hct (39.6-50.0) % MCHC (32.0-37.0) d/dL RDW (11.5-14.5) % Plt Count (140-440) X 10*3/uL Neutrophils # (1.80-7.70) X 10*3/uL Monocytes # (0.20-1.00) X 10*3/uL Chloride 108 H (98-107) mmol/L Glucose 196 H (70-110) mg/dL POC Glucose (mg/dL) (70-110) mg/dL Microbiology - Last 24 Hours (Table) 08/29/22 14:03 Blood Culture - Preliminary Blood 08/29/22 15:26 Gram Stain - Preliminary Groin Wound Culture - Preliminary Presumptive MRSA Gram Neg Bacilli Assessment and Plan (1) Cutaneous candidiasis Current Visit: Yes Status: Acute Code(s): B37.2 - CANDIDIASIS OF SKIN AND NAIL SNOMED Code(s): 01285672 (2) MRSA bacteremia Current Visit: Yes Status: Acute Code(s): R78.81 - BACTEREMIA; B95.62 - METHICILLIN RESIS STAPH INFCT CAUSING DISEASES CL[facility]SD [facility] SNOMED Code(s): 1 9821251864248780 (3) Cellulitis of groin Current Visit: Yes Status: Acute Code(s): L03.314 - CELLULITIS OF GROIN SNOMED Code(s): 28341080 Plan: 1patient with the hospital with weakness and progressive decline in this patient noted to have elevated white count source is multifactorial in this patient with extensive cutaneous candidiasis involving the scrotal and groin area, and did have mild positive UA concerning for possible UTI 2-patient did have MRSA bacteremia and the cultures obtained from the groin area is growing MRSA and gram-negative 3-blood cultures has been repeated document clearance of bacteremia 4-patient to continue the vancomycin and cefepime While waiting for the culture to finalize Time with Patient: Less than 30
[2022-09-02] MEDS: traMADol 50 MG TAB PO PRN (17:51)
--- NOTE | 2022-09-02 17:56 | P.PN ---
Subjective Progress Note Date: 09/02/22 Principal diagnosis: Scrotal and groin area Cutaneous candidiasis and possible UTI Patient is a 82-year-old male with recent multiple admission in the hospital initial concern for the right knee septic arthritis status post I&D cultures were negative afterwards the patient did have admission to hospital with pneumonia and sputum was positive for Pseudomonas for which the patient has completed antibiotic therapy, patient has not been brought back to the hospital concerning for significant excoriation to his scrotal and groin area and weeping edema and also concerning for weakness. On today's evaluation that is 09/02/2022 the patient remains to be afebrile and the patient is breathing comfortably complaining of overall not feeling well however patient not hypoxic or need for supplemental oxygen no chest pain no abdominal pain no diarrhea has been reported has been concerned with the patient developing pressure ulcer to the heel area Objective - Vital Signs Vital signs: Vital Signs Temp 97.9 F 09/02/22 07:07 Pulse 65 09/02/22 11:36 Resp 18 09/02/22 08:35 BP 147/73 09/02/22 07:07 Pulse Ox 97 09/02/22 07:07 FiO2 Intake & Output 09/01/22 09/02/22 09/02/22 18:59 06:59 18:59 Output Total 450 Balance -450 Weight 90.718 kg Output: Urine 350 Post Void Residual 100 Other: Voiding Method Urinal Urinal Urinal Incontinent # Voids 3 - Exam GENERAL DESCRIPTION: An elderly male lying in bed in no distress RESPIRATORY SYSTEM: Unlabored breathing , decreased breath sounds at bases HEART: S1 S2 regular rate and rhythm , ABDOMEN: Soft , no tenderness : The groin area excoriation has improved Patient did have a left heel unstageable pressure ulcer with no cellulitis - Labs CBC & Chem 7: 08/31/22 06:25 09/02/22 06:33 Labs: Abnormal Lab Results - Last 24 Hours (Table) 09/01/22 09/01/22 09/02/22 Range/Units 16:48 20:49 06:31 Sodium (137-145) mmol/L Carbon Dioxide (22-30) mmol/L Glucose (74-99) mg/dL POC Glucose (mg/dL) 198 H 230 H 199 H (70-110) mg/dL 09/02/22 09/02/22 Range/Units 06:33 11:25 Sodium 136 L (137-145) mmol/L Carbon Dioxide 21 L (22-30) mmol/L Glucose 210 H (74-99) mg/dL POC Glucose (mg/dL) 314 H (70-110) mg/dL Microbiology - Last 24 Hours (Table) 09/01/22 08:14 Blood Culture - Preliminary Blood 08/29/22 14:03 Blood Culture - Preliminary Blood 08/29/22 14:03 Blood Culture Gram Stain - Final Blood Blood Culture - Final Methicillin resist S. aureus 08/31/22 03:55 Urine Culture - Final Urine,Voided 08/29/22 15:26 Gram Stain - Final Groin Wound Culture - Final Methicillin resist S. aureus Klebsiella pneumoniae Pseudomonas aeruginosa Assessment and Plan (1) Cutaneous candidiasis Current Visit: Yes Status: Acute Code(s): B37.2 - CANDIDIASIS OF SKIN AND NAIL SNOMED Code(s): 10638677 (2) MRSA bacteremia Current Visit: Yes Status: Acute Code(s): R78.81 - BACTEREMIA; B95.62 - METHICILLIN RESIS STAPH INFCT CAUSING DISEASES [facility] SNOMED Code(s): 47022268672864973 (3) Cellulitis of groin Current Visit: Yes Status: Acute Code(s): L03.314 - CELLULITIS OF GROIN SNOMED Code(s): 87959310 Plan: this was a telehealth visit 1patient with the hospital with weakness and progressive decline in this patient noted to have elevated white count source is multifactorial in this patient with extensive cutaneous candidiasis involving the scrotal and groin area, and did have mild positive UA concerning for possible UTI 2-patient did have MRSA bacteremia and the cultures obtained from the groin area is growing MRSA and Pseudomonas aeruginosa along with ESBL Klebsiella 3-blood cultures has been repeated document clearance of bacteremia 4-patient to continue the vancomycin , However discontinue cefepime start the patient on meropenem to cover for the ESBL pathogen. 5patient with the left heel unstageable pressure ulcer to keep the area off the pressure and dry Time with Patient: Less than 30
[2022-09-02 21:20] LABS: Glucose,Whole Blood 336 mg/dL (70-110)
[2022-09-02] MEDS: METOPROLOL SUCCINATE (ER) 25 MG TAB.ER.24H PO SCH (21:47)
[2022-09-02] MEDS: ATORVASTATIN 20 MG TAB PO SCH (21:47)
[2022-09-02] MEDS: VANCOMYCIN 1,250 MG in SODIUM CHLORIDE 0.9% 250 ML IVPB SCH (23:08)
[2022-09-03] MEDS: traMADol 50 MG TAB PO PRN (02:37)
[2022-09-03 06:06] LABS: Glucose,Whole Blood 182 mg/dL (70-110)
[2022-09-03] MEDS: PANTOPRAZOLE 40 MG TABLET PO SCH (06:55)
[2022-09-03] MEDS: INSULIN ASPART (NovoLOG) 100 UNIT/ML VIAL SQ SCH ×4 (06:55→21:53)
[2022-09-03 07:35] LABS: African American GFR (CKD) >90 (>60 ml/min/1.73 sqM); Anion Gap 8 mmol/L; Blood Urea Nitrogen 17 mg/dL (9-20); Calcium 9.3 mg/dL (8.4-10.2); Carbon Dioxide 20 mmol/L (22-30); Chloride 107 mmol/L (98-107); Glucose 167 mg/dL (74-99); Non-African American GFR(CKD) 82 (>60 ml/min/1.73 sqM); Sodium 135 mmol/L (137-145)
[2022-09-03] MEDS: IPRATROPIUM-ALBUTEROL 3 ML NEB INHALATION SCH ×4 (08:15→20:42)
[2022-09-03] MEDS: SYMBICORT 160-4.5 MCG INHALER INHALATION SCH ×2 (08:15→20:42)
[2022-09-03] MEDS: MEROPENEM 1 GM in SODIUM CHLORIDE 0.9% 100 ML IVPB SCH ×2 (08:27→16:21)
[2022-09-03] MEDS: FUROSEMIDE 40 MG TAB PO SCH (08:28)
[2022-09-03] MEDS: APIXABAN 5 MG TAB PO SCH ×2 (08:28→21:53)
[2022-09-03] MEDS: RIVASTIGMINE TARTRATE 3 MG PO SCH ×2 (08:28→21:53)
[2022-09-03] MEDS: NYSTATIN 100,000 UNIT/GM POWD 15 GM TOPICAL SCH ×3 (08:29→21:54)
[2022-09-03] MEDS: NYSTATIN 100,000UNIT/GM CREAM 30 GM TUBE TOPICAL SCH ×3 (08:29→21:54)
[2022-09-03] MEDS: FOLIC ACID 1 MG TAB PO SCH (08:29)
[2022-09-03] MEDS: OFLOXACIN 0.3% OPHTH DROPS 5 ML BOTTLE BOTH EYES SCH ×3 (08:29→21:54)
[2022-09-03] MEDS: FLUCONAZOLE 100 MG TAB PO SCH (08:29)
[2022-09-03] MEDS: SPIRONOLACTONE 25 MG TAB PO SCH (08:29)
[2022-09-03] MEDS: NON FORMULARY DRUG (Prevagen 1 CAP) PO SCH (08:30)
[2022-09-03] MEDS: THIAMINE 100 MG TAB PO SCH (08:31)
[2022-09-03] MEDS: TAMSULOSIN 0.4 MG CAP.ER.24H PO SCH (08:31)
[2022-09-03] MEDS: MULTIVITAMINS, THERA 1 EACH TAB PO SCH (08:32)
[2022-09-03 12:08] LABS: Glucose,Whole Blood 296 mg/dL (70-110)
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
--- NOTE | 2022-09-03 12:54 | P.PN ---
Subjective Progress Note Date: 09/01/22 82-year-old male with recent multiple admission in the hospital initial concern for the right knee septic arthritis status post I&D cultures were negative afterwards the patient did have admission to hospital with pneumonia and sputum was positive for Pseudomonas for which the patient has completed antibiotic therapy and the patient was recently discharged from the detention to home on 08/18/2022 did mention that while in the detention he has developed significant excoriation of the scrotal and pelvic area for which they were advised nystatin cream which they may have been applying patient however has been brought into the ER concerning for the patient getting weaker and noticed to having a worsening of the rash to the groin and scrotal area the area has become more red or and having weeping edema and the patient complaining of pain however unable to quantify it any further no high-grade fever has been reported and patient on arrival to the ER was afebrile mild tachycardia white count of 16.5 with a left shift creatinine has been normal there exams are normal urine has been positive mildly patient did have a chest x-ray bilateral infiltrate and effusion correlate for mild CHF otherwise consider pneumonia KUB x-ray bilateral lobe infiltrate and effusion nonspecific abdominal patient was started on Zosyn infectious disease was consulted 09/01/2021 Patient seen and evaluated in follow-up on the regular medical floor. He is currently resting in bed. Awake and alert. Maintaining O2 saturations in the 90s on room air. Afebrile. Hemodynamically stable. Groin wound cultures are positive for methicillin-resistant Staphylococcus aureus, Klebsiella pneumoniae, pseudomonas aeruginosa. Blood cultures pending. Urine culture revealed no growth. Sodium 139. Potassium 3.8. Bicarb 24. BUN 19. Creatinine 0.95. Glucose 196. He is continued on cefepime and vancomycin. Objective - Vital Signs Vital signs: Vital Signs Temp 98.0 F 09/01/22 07:26 Pulse 80 09/01/22 12:20 Resp 30 H 09/01/22 08:30 BP 133/56 09/01/22 07:26 Pulse Ox 94 L 09/01/22 07:26 FiO2 Intake & Output 08/31/22 09/01/22 09/01/22 18:59 06:59 18:59 Intake Total 600 Output Total 500 Balance 100 Weight 90.718 kg Intake: Intake, IV Titration 600 Amount Piperacillin-Tazobactam 3 100 .375 gm In Sodium Chloride 0.9% 100 ml @ 25 mls/hr IVPB Q8HR [facility] Rx# :[id number] Vancomycin 1,500 mg In 500 Sodium Chloride 0.9% 500 ml 500 ml @ 167 mls/hr IVPB Q12H [facility] Rx#: [id number] Output: Post Void Residual 500 Other: Voiding Method Urinal Urinal Incontinent # Voids 1 - Exam GENERAL EXAM: Alert, pleasant 82-year-old male, on room air, comfortable in no apparent distress. HEAD: Normocephalic. EYES: Normal reaction of pupils, equal size. NECK: No masses, no JVD. CHEST: No chest wall deformity. LUNGS: Equal air entry with no crackles, wheeze, rhonchi or dullness. CVS: S1 and S2 normal with no audible murmur, regular rhythm. ABDOMEN: No hepatosplenomegaly, normal bowel sounds, no guarding or rigidity. SKIN: Excoriation and wounds of the bilateral groins CENTRAL NERVOUS SYSTEM: No focal deficits, tone is normal in all 4 extremities. EXTREMITIES: There is no peripheral edema. No clubbing, no cyanosis. Peripheral pulses are intact. - Labs CBC & Chem 7: 08/31/22 06:25 09/03/22 07:00 Labs: Abnormal Lab Results - Last 24 Hours (Table) 08/31/22 08/31/22 09/01/22 Range/Units 16:30 21:39 05:48 Chloride (98-107) mmol/L Glucose (74-99) mg/dL POC Glucose (mg/dL) 279 H 157 H 221 H (70-110) mg/dL 09/01/22 09/01/22 Range/Units 06:36 11:35 Chloride 108 H (98-107) mmol/L Glucose 196 H (74-99) mg/dL POC Glucose (mg/dL) 283 H (70-110) mg/dL Microbiology - Last 24 Hours (Table) 08/31/22 03:55 Urine Culture - Final Urine,Voided 08/29/22 15:26 Gram Stain - Final Groin Wound Culture - Final Methicillin resist S. aureus Klebsiella pneumoniae Pseudomonas aeruginosa 08/29/22 14:03 Blood Culture - Preliminary Blood Assessment and Plan Assessment: Generalized weakness secondary to suspected health care acquired pneumonia, possible diastolic congestive heart failure. Procalcitonin 0.20. ProBNP 528 Excoriation and wounds of the scrotal, groin area positive for methicillin- resistant staph aureus, Klebsiella pneumoniae, Pseudomonas aeruginosa. Blood cultures pending Recent admission for pseudomonas aeruginosa pneumonia Recent admission for right knee septic arthritis requiring incision and drainage and wound VAC and weeks of IV antibiotics Paroxysmal atrial fibrillation anticoagulated with Eliquis Hypertension Hyperlipidemia Diabetes mellitus Chronic obstructive pulmonary disease BPH/urinary retention Dementia Plan: Microbiology, labs and medications reviewed Currently on vancomycin and cefepime Stable and on room air -- Urology for urinary retention and recommending to keep Ingram catheter given incomplete bladder emptying and scrotal skin breakdown, beneficial for the patient
--- NOTE | 2022-09-03 12:56 | P.PN ---
Subjective Progress Note Date: 09/12/22 82-year-old male with recent multiple admission in the hospital initial concern for the right knee septic arthritis status post I&D cultures were negative afterwards the patient did have admission to hospital with pneumonia and sputum was positive for Pseudomonas for which the patient has completed antibiotic therapy and the patient was recently discharged from the assisted to home on 08/18/2022 did mention that while in the assisted he has developed significant excoriation of the scrotal and pelvic area for which they were advised nystatin cream which they may have been applying patient however has been brought into the ER concerning for the patient getting weaker and noticed to having a worsening of the rash to the groin and scrotal area the area has become more red or and having weeping edema and the patient complaining of pain however unable to quantify it any further no high-grade fever has been reported and patient on arrival to the ER was afebrile mild tachycardia white count of 16.5 with a left shift creatinine has been normal there exams are normal urine has been positive mildly patient did have a chest x-ray bilateral infiltrate and effusion correlate for mild CHF otherwise consider pneumonia KUB x-ray bilateral lobe infiltrate and effusion nonspecific abdominal patient was started on Zosyn infectious disease was consulted 09/01/2021 Patient seen and evaluated in follow-up on the regular medical floor. He is currently resting in bed. Awake and alert. Maintaining O2 saturations in the 90s on room air. Afebrile. Hemodynamically stable. Groin wound cultures are positive for methicillin-resistant Staphylococcus aureus, Klebsiella pneumoniae, pseudomonas aeruginosa. Blood cultures pending. Urine culture revealed no growth. Sodium 139. Potassium 3.8. Bicarb 24. BUN 19. Creatinine 0.95. Glucose 196. He is continued on cefepime and vancomycin. 09/02/2022 the patient is seen and evaluated in room at bedside; remains to be afebrile and the patient is breathing comfortably complaining of overall not feeling well however patient not hypoxic or need for supplemental oxygen no chest pain no abdominal pain no diarrhea has been reported has been concerned with the patient developing pressure ulcer to the heel area -patient did have MRSA bacteremia and the cultures obtained from the groin area is growing MRSA and Pseudomonas aeruginosa along with ESBL Klebsiella -blood cultures has been repeated document clearance of bacteremia -patient to continue the vancomycin , However discontinue cefepime start the patient on meropenem to cover for the ESBL pathogen. --patient with the left heel unstageable pressure ulcer to keep the area off the pressure and dry Objective - Vital Signs Vital signs: Vital Signs Temp 97.9 F 09/02/22 07:07 Pulse 65 09/02/22 11:36 Resp 18 09/02/22 08:35 BP 147/73 09/02/22 07:07 Pulse Ox 97 09/02/22 07:07 FiO2 Intake & Output 09/01/22 09/02/22 09/02/22 18:59 06:59 18:59 Output Total 450 Balance -450 Weight 90.718 kg Output: Urine 350 Post Void Residual 100 Other: Voiding Method Urinal Urinal Urinal Incontinent # Voids 3 - Exam GENERAL EXAM: Alert, pleasant 82-year-old male, on room air, comfortable in no apparent distress. HEAD: Normocephalic. EYES: Normal reaction of pupils, equal size. NECK: No masses, no JVD. CHEST: No chest wall deformity. LUNGS: Equal air entry with no crackles, wheeze, rhonchi or dullness. CVS: S1 and S2 normal with no audible murmur, regular rhythm. ABDOMEN: No hepatosplenomegaly, normal bowel sounds, no guarding or rigidity. SKIN: Excoriation and wounds of the bilateral groins CENTRAL NERVOUS SYSTEM: No focal deficits, tone is normal in all 4 extremities. EXTREMITIES: There is no peripheral edema. No clubbing, no cyanosis. Peripheral pulses are intact. - Labs CBC & Chem 7: 08/31/22 06:25 09/03/22 07:00 Labs: Abnormal Lab Results - Last 24 Hours (Table) 09/01/22 09/01/22 09/02/22 Range/Units 16:48 20:49 06:31 Sodium (137-145) mmol/L Carbon Dioxide (22-30) mmol/L Glucose (74-99) mg/dL POC Glucose (mg/dL) 198 H 230 H 199 H (70-110) mg/dL 09/02/22 09/02/22 Range/Units 06:33 11:25 Sodium 136 L (137-145) mmol/L Carbon Dioxide 21 L (22-30) mmol/L Glucose 210 H (74-99) mg/dL POC Glucose (mg/dL) 314 H (70-110) mg/dL Microbiology - Last 24 Hours (Table) 08/29/22 14:03 Blood Culture - Preliminary Blood 08/29/22 14:03 Blood Culture Gram Stain - Final Blood Blood Culture - Final Methicillin resist S. aureus 08/31/22 03:55 Urine Culture - Final Urine,Voided 08/29/22 15:26 Gram Stain - Final Groin Wound Culture - Final Methicillin resist S. aureus Klebsiella pneumoniae Pseudomonas aeruginosa Assessment and Plan Assessment: Generalized weakness secondary to suspected health care acquired pneumonia, possible diastolic congestive heart failure. Procalcitonin 0.20. ProBNP 528 Excoriation and wounds of the scrotal, groin area positive for methicillin-res istant staph aureus, Klebsiella pneumoniae, Pseudomonas aeruginosa. Blood cultures pending Recent admission for pseudomonas aeruginosa pneumonia Recent admission for right knee septic arthritis requiring incision and drainage and wound VAC and weeks of IV antibiotics Paroxysmal atrial fibrillation anticoagulated with Eliquis Hypertension Hyperlipidemia Diabetes mellitus Chronic obstructive pulmonary disease BPH/urinary retention Dementia Plan: Microbiology, labs and medications reviewed Currently on vancomycin and cefepime Stable and on room air -- Urology for urinary retention and recommending to keep Ingram catheter given incomplete bladder emptying and scrotal skin breakdown, beneficial for the patient
--- NOTE | 2022-09-03 14:09 | P.PN ---
Subjective Progress Note Date: 09/03/22 Principal diagnosis: Scrotal and groin area Cutaneous candidiasis and possible UTI Patient is a 82-year-old male with recent multiple admission in the hospital initial concern for the right knee septic arthritis status post I&D cultures were negative afterwards the patient did have admission to hospital with pneumonia and sputum was positive for Pseudomonas for which the patient has completed antibiotic therapy, patient has not been brought back to the hospital concerning for significant excoriation to his scrotal and groin area and weeping edema and also concerning for weakness. On today's evaluation that is 09/03/2022 the patient continues to be afebrile, the patient is breathing comfortably on room air,n no chest pain no abdominal pain no diarrhea has been reported , groin and scrotal discomfort has improved Objective - Vital Signs Vital signs: Vital Signs Temp 97.6 F 09/03/22 07:16 Pulse 54 L 09/03/22 08:50 Resp 18 09/03/22 08:50 BP 127/54 09/03/22 07:16 Pulse Ox 91 L 09/03/22 07:16 FiO2 Intake & Output 09/02/22 09/03/22 09/03/22 18:59 06:59 18:59 Output Total 300 Balance -300 Weight 90.718 kg Output: Urine 300 Other: Voiding Method Urinal Urinal Urinal Diaper Diaper Incontinent Incontinent # Voids 3 3 # Bowel Movements 1 - Exam GENERAL DESCRIPTION: An elderly male lying in bed in no distress RESPIRATORY SYSTEM: Unlabored breathing , decreased breath sounds at bases HEART: S1 S2 regular rate and rhythm , ABDOMEN: Soft , no tenderness : The groin area excoriation has improved Patient did have a left heel unstageable pressure ulcer with no cellulitis - Labs CBC & Chem 7: 08/31/22 06:25 09/03/22 07:00 Labs: Abnormal Lab Results - Last 24 Hours (Table) 09/02/22 09/02/22 09/03/22 Range/Units 16:30 21:18 06:04 Sodium (137-145) mmol/L Carbon Dioxide (22-30) mmol/L Glucose (74-99) mg/dL POC Glucose (mg/dL) 298 H 336 H 182 H (70-110) mg/dL 09/03/22 Range/Units 07:00 Sodium 135 L (137-145) mmol/L Carbon Dioxide 20 L (22-30) mmol/L Glucose 167 H (74-99) mg/dL POC Glucose (mg/dL) (70-110) mg/dL Microbiology - Last 24 Hours (Table) 09/01/22 08:14 Blood Culture - Preliminary Blood Assessment and Plan (1) Cutaneous candidiasis Current Visit: Yes Status: Acute Code(s): B37.2 - CANDIDIASIS OF SKIN AND NAIL SNOMED Code(s): 04090699 (2) MRSA bacteremia Current Visit: Yes Status: Acute Code(s): R78.81 - BACTEREMIA; B95.62 - METHICILLIN RESIS STAPH INFCT [facility] Code(s): 16405287707335604 (3) Cellulitis of groin Current Visit: Yes Status: Acute Code(s): L03.314 - CELLULITIS OF GROIN SNOMED Code(s): 56380015 Plan: this was a telehealth visit 1patient with the hospital with weakness and progressive decline in this patient noted to have elevated white count source is multifactorial in this patient with extensive cutaneous candidiasis involving the scrotal and groin area, and did have mild positive UA concerning for possible UTI 2-patient did have MRSA bacteremia and the cultures obtained from the groin area is growing MRSA and Pseudomonas aeruginosa along with ESBL Klebsiella 3-blood cultures has been repeated document clearance of bacteremia 4-patient to continue the vancomycin and meropenem to cover for the ESBL jamila blanchard. 5patient with the left heel unstageable pressure ulcer to keep the area off the pressure and dry will need PICC for outpatient IV antibiotics x 2 weeks , discussed with
[2022-09-03] MEDS: VANCOMYCIN 1,250 MG in SODIUM CHLORIDE 0.9% 250 ML IVPB SCH ×2 (16:27→22:14)
[2022-09-03 16:44] LABS: Glucose,Whole Blood 223 mg/dL (70-110)
[2022-09-03 20:23] LABS: Glucose,Whole Blood 255 mg/dL (70-110)
[2022-09-03] MEDS: ATORVASTATIN 20 MG TAB PO SCH (21:53)
[2022-09-03] MEDS: METOPROLOL SUCCINATE (ER) 25 MG TAB.ER.24H PO SCH (21:53)
[2022-09-04] MEDS: MEROPENEM 1 GM in SODIUM CHLORIDE 0.9% 100 ML IVPB SCH ×4 (00:29→23:59)
[2022-09-04 06:01] LABS: Glucose,Whole Blood 204 mg/dL (70-110)
[2022-09-04] MEDS: INSULIN ASPART (NovoLOG) 100 UNIT/ML VIAL SQ SCH ×4 (06:53→20:57)
[2022-09-04] MEDS: PANTOPRAZOLE 40 MG TABLET PO SCH (06:53)
[2022-09-04] MEDS: RIVASTIGMINE TARTRATE 3 MG PO SCH ×2 (07:43→20:51)
[2022-09-04] MEDS: FLUCONAZOLE 100 MG TAB PO SCH (07:43)
[2022-09-04] MEDS: APIXABAN 5 MG TAB PO SCH ×2 (07:43→20:51)
[2022-09-04] MEDS: NYSTATIN 100,000UNIT/GM CREAM 30 GM TUBE TOPICAL SCH ×3 (07:44→20:52)
[2022-09-04] MEDS: TAMSULOSIN 0.4 MG CAP.ER.24H PO SCH (07:44)
[2022-09-04] MEDS: NYSTATIN 100,000 UNIT/GM POWD 15 GM TOPICAL SCH ×3 (07:44→20:52)
[2022-09-04] MEDS: OFLOXACIN 0.3% OPHTH DROPS 5 ML BOTTLE BOTH EYES SCH ×3 (07:44→20:52)
[2022-09-04] MEDS: FUROSEMIDE 40 MG TAB PO SCH (07:44)
[2022-09-04] MEDS: FOLIC ACID 1 MG TAB PO SCH (07:44)
[2022-09-04] MEDS: THIAMINE 100 MG TAB PO SCH (07:44)
[2022-09-04] MEDS: MULTIVITAMINS, THERA 1 EACH TAB PO SCH (07:44)
[2022-09-04] MEDS: NON FORMULARY DRUG (Prevagen 1 CAP) PO SCH (07:45)
[2022-09-04] MEDS: SPIRONOLACTONE 25 MG TAB PO SCH (07:45)
[2022-09-04] MEDS: IPRATROPIUM-ALBUTEROL 3 ML NEB INHALATION SCH ×4 (08:32→21:14)
[2022-09-04] MEDS: SYMBICORT 160-4.5 MCG INHALER INHALATION SCH ×2 (08:32→21:14)
[2022-09-04 09:04] LABS: Basophils # (A) 0.08 X 10*3/uL (0.00-0.10); Basophils % (A) 0.6 %; Eosinophils # (A) 0.21 X 10*3/uL (0.04-0.35); Eosinophils % (A) 1.5 %; HCT 32.2 % (39.6-50.0); HGB 10.2 d/dL (12.0-15.0); Lymphocytes # (A) 1.29 X 10*3/uL (0.90-5.00); Lymphocytes % (A) 9.3 %; MCHC 31.7 d/dL (32.0-37.0); MCV 91.5 FL (80.0-97.0); Mean Platelet Volume 10.6 FL (9.5-12.2); Monocytes # (A) 1.02 X 10*3/uL (0.20-1.00); Monocytes % (A) 7.3 %; NRBC Per 100 WBC 0 X 10*3/uL (0.00-0.01); Neutrophils % (A) 79.6 %; Platelet Count 464 X 10*3/uL (140-440); RBC 3.52 X 10*6/uL (4.40-5.60); RDW 15.5 % (11.5-14.5); WBC 13.93 X 10*3/uL (4.50-10.00)
[2022-09-04 09:49] LABS: Blood Urea Nitrogen 18.6 mg/dL (9.0-27.0); Calcium 10.2 mg/dL (8.7-10.3); Carbon Dioxide 24.6 mmol/L (21.6-31.8); Chloride 106 mmol/L (96-109); Glucose 209 mg/dL (70-110); Potassium 4.6 mmol/L (3.5-5.5); Sodium 140 mmol/L (135-145)
[2022-09-04] MEDS ORDERED: METOPROLOL TARTRATE 5 MG/5 ML VIAL IVP STA (10:49)
--- NOTE | 2022-09-04 11:27 | P.PN ---
Subjective Progress Note Date: 09/03/22 82-year-old male with recent multiple admission in the hospital initial concern for the right knee septic arthritis status post I&D cultures were negative afterwards the patient did have admission to hospital with pneumonia and sputum was positive for Pseudomonas for which the patient has completed antibiotic therapy and the patient was recently [facility] from the jail to home on 08/18/2022 did mention that while in the jail he has developed significant excoriation of the scrotal and pelvic area for which they were advised nystatin cream which they may have been applying patient however has been brought into the ER concerning for the patient getting weaker and noticed to having a worsening of the rash to the groin and scrotal area the area has become more red or and having weeping edema and the patient complaining of pain however unable to quantify it any further no high-grade fever has been reported and patient on arrival to the ER was afebrile mild tachycardia white count of 16.5 with a left shift creatinine has been normal there exams are normal urine has been positive mildly patient did have a chest x-ray bilateral infiltrate and effusion correlate for mild CHF otherwise consider pneumonia KUB x-ray bilateral lobe infiltrate and effusion nonspecific abdominal patient was started on Zosyn infectious disease was consulted 09/01/2021 Patient seen and evaluated in follow-up on the regular medical floor. He is currently resting in bed. Awake and alert. Maintaining O2 saturations in the 90s on room air. Afebrile. Hemodynamically stable. Groin wound cultures are positive for methicillin-resistant Staphylococcus aureus, Klebsiella pneumoniae, pseudomonas aeruginosa. Blood cultures pending. Urine culture revealed no growth. Sodium 139. Potassium 3.8. Bicarb 24. BUN 19. Creatinine 0.95. Glucose 196. He is continued on cefepime and vancomycin. 09/02/2022 the patient is seen and evaluated in room at bedside; remains to be afebrile and the patient is breathing comfortably complaining of overall not feeling well however patient not hypoxic or need for supplemental oxygen no chest pain no abdominal pain no diarrhea has been reported has been concerned with the patient developing pressure ulcer to the heel area -patient did have MRSA bacteremia and the cultures obtained from the groin area is growing MRSA and Pseudomonas aeruginosa along with ESBL Klebsiella -blood cultures has been repeated document clearance of bacteremia -patient to continue the vancomycin , However discontinue cefepime start the patient on meropenem to cover for the ESBL pathogen. --patient with the left heel unstageable pressure ulcer to keep the area off the pressure and dry 09/03/2022 Patient is seen and evaluated at bedside; called patient's are update on kimberly carr's condition; is somewhat concerned about pain control and reports tramadol was not resumed upon request Vital signs are reviewed. Temperature 97.6, pulse 54, respiration 18 and blood pressure of 127/54. O2 saturation 91% -patient did have MRSA bacteremia and the cultures obtained from the groin area is growing MRSA and Pseudomonas aeruginosa along with ESBL Klebsiella -blood cultures has been repeated document clearance of bacteremia -patient to continue the vancomycin and meropenem to cover for the ESBL pathogen. patient with the left heel unstageable pressure ulcer to keep the area off the pressure and dry Patient is being followed by ID and will need PICC for outpatient IV antibiotics x 2 weeks Objective - Vital Signs Vital signs: Vital Signs Temp 97.6 F 09/03/22 07:16 Pulse 54 L 09/03/22 08:50 Resp 18 09/03/22 08:50 BP 127/54 09/03/22 07:16 Pulse Ox 91 L 09/03/22 07:16 FiO2 Intake & Output 09/02/22 09/03/22 09/03/22 18:59 06:59 18:59 Output Total 300 Balance -300 Weight 90.718 kg Output: Urine 300 Other: Voiding Method Urinal Urinal Urinal Diaper Diaper Incontinent Incontinent # Voids 3 3 # Bowel Movements 1 - Exam GENERAL EXAM: Alert, pleasant 82-year-old male, on room air, comfortable in no apparent distress. HEAD: Normocephalic. EYES: Normal reaction of pupils, equal size. NECK: No masses, no JVD. CHEST: No chest wall deformity. LUNGS: Equal air entry with no crackles, wheeze, rhonchi or dullness. CVS: S1 and S2 normal with no audible murmur, regular rhythm. ABDOMEN: No hepatosplenomegaly, normal bowel sounds, no guarding or rigidity. SKIN: Excoriation and wounds of the bilateral groins CENTRAL NERVOUS SYSTEM: No focal deficits, tone is normal in all 4 extremities. EXTREMITIES: There is no peripheral edema. No clubbing, no cyanosis. Peripheral pulses are intact. - Labs CBC & Chem 7: 09/04/22 05:25 09/04/22 05:25 Labs: Abnormal Lab Results - Last 24 Hours (Table) 09/02/22 09/02/22 09/03/22 Range/Units 16:30 21:18 06:04 Sodium (137-145) mmol/L Carbon Dioxide (22-30) mmol/L Glucose (74-99) mg/dL POC Glucose (mg/dL) 298 H 336 H 182 H (70-110) mg/dL 09/03/22 09/03/22 Range/Units 07:00 12:06 Sodium 135 L (137-145) mmol/L Carbon Dioxide 20 L (22-30) mmol/L Glucose 167 H (74-99) mg/dL POC Glucose (mg/dL) 296 H (70-110) mg/dL Microbiology - Last 24 Hours (Table) 09/01/22 08:14 Blood Culture - Preliminary Blood Assessment and Plan Assessment: Generalized weakness secondary to suspected health care acquired pneumonia, possible diastolic congestive heart failure. Procalcitonin 0.20. ProBNP 528 Excoriation and wounds of the scrotal, groin area positive for methicillin- resistant staph aureus, Klebsiella pneumoniae, Pseudomonas aeruginosa. Blood cultures pending Recent admission for pseudomonas aeruginosa pneumonia Recent admission for right knee septic arthritis requiring incision and drainage and wound VAC and weeks of IV antibiotics Paroxysmal atrial fibrillation anticoagulated with Eliquis Hypertension Hyperlipidemia Diabetes mellitus Chronic obstructive pulmonary disease BPH/urinary retention Dementia Plan: Microbiology, labs and medications reviewed Currently on vancomycin and cefepime Stable and on room air -- Urology for urinary retention and recommending to keep Ingram catheter given incomplete bladder emptying and scrotal skin breakdown, beneficial for the patient
[2022-09-04 11:36] LABS: Glucose,Whole Blood 363 mg/dL (70-110)
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
[2022-09-04] MEDS: metFORMIN 500 MG TAB PO SCH ×2 (12:21→17:40)
--- NOTE | 2022-09-04 12:34 | P.PN ---
Subjective Progress Note Date: 09/04/22 Principal diagnosis: Phimosis, urinary incontinence Mr. Lovelace is resting comfortably. He continues to be incontinent of urine, though he is also voiding into a urinal. Objective - Vital Signs Vital signs: Vital Signs Temp 97.9 F 09/04/22 07:21 Pulse 103 H 09/04/22 11:31 Resp 20 09/04/22 11:31 BP 107/58 09/04/22 11:33 Pulse Ox 97 09/04/22 07:21 FiO2 Intake & Output 09/03/22 09/04/22 09/04/22 18:59 06:59 18:59 Intake Total 350 350 Output Total 450 400 200 Balance -100 -50 -200 Intake: Intake, IV Titration 350 350 Amount Meropenem 1 gm In Sodium 100 100 Chloride 0.9% 100 ml @ 33 .3 mls/hr IVPB Q8HR [facility] Rx#:[id number] Vancomycin 1,250 mg In 250 250 Sodium Chloride 0.9% 250 ml @ 125 mls/hr IVPB Q16H [facility] Rx#:[id number] Output: Urine 450 400 200 Other: Voiding Method Urinal Urinal Urinal Diaper Diaper Diaper Incontinent Incontinent Incontinent # Voids 5 3 # Bowel Movements 2 - Constitutional General appearance: Present: average body habitus, cooperative - Labs CBC & Chem 7: 09/04/22 05:25 09/04/22 05:25 Labs: Abnormal Lab Results - Last 24 Hours (Table) 09/03/22 09/03/22 09/04/22 Range/Units 16:42 20:21 05:25 WBC 13.93 H (4.50-10.00) X 10*3/uL RBC 3.52 L (4.40-5.60) X 10*6/uL Hgb 10.2 L (12.0-15.0) d/dL Hct 32.2 L (39.6-50.0) % MCHC 31.7 L (32.0-37.0) d/dL RDW 15.5 H (11.5-14.5) % Plt Count 464 H (140-440) X 10*3/uL Neutrophils # 11.10 H (1.80-7.70) X 10*3/uL Monocytes # 1.02 H (0.20-1.00) X 10*3/uL Glucose (70-110) mg/dL POC Glucose (mg/dL) 223 H 255 H (70-110) mg/dL 09/04/22 09/04/22 09/04/22 Range/Units 05:25 05:58 11:34 WBC (4.50-10.00) X 10*3/uL RBC (4.40-5.60) X 10*6/uL Hgb (12.0-15.0) d/dL Hct (39.6-50.0) % MCHC (32.0-37.0) d/dL RDW (11.5-14.5) % Plt Count (140-440) X 10*3/uL Neutrophils # (1.80-7.70) X 10*3/uL Monocytes # (0.20-1.00) X 10*3/uL Glucose 209 H (70-110) mg/dL POC Glucose (mg/dL) 204 H 363 H (70-110) mg/dL Microbiology - Last 24 Hours (Table) 08/29/22 14:03 Blood Culture - Final Blood 09/01/22 08:14 Blood Culture - Preliminary Blood Assessment and Plan Assessment: The patient has been found to have MRSA bacteremia. Cultures of the groin area have shown MRSA, Klebsiella, and Pseudomonas. Urinalysis showed pyuria, but a urine culture was negative. The initial postvoid residual was approximately 500 mL, but repeat post void residuals were 101 and 119 mL. Nystatin powder and cream is being applied to the scrotum, which shows evidence of erythema without skin breakdown. (1) Phimosis Current Visit: Yes Status: Acute Code(s): N47.1 - PHIMOSIS SNOMED Code(s): 306772908 (2) Unspecified urinary incontinence Current Visit: Yes Status: Acute Code(s): R32 - UNSPECIFIED URINARY INCONTINENCE SNOMED Code(s): 754446300 Plan: Continue using nystatin cream and powder. I would recommend Ingram catheter placement only if he develops skin breakdown or urinary retention.
[2022-09-04] MEDS: VANCOMYCIN 1,250 MG in SODIUM CHLORIDE 0.9% 250 ML IVPB SCH (13:28)
[2022-09-04 16:42] LABS: Glucose,Whole Blood 195 mg/dL (70-110)
--- NOTE | 2022-09-04 17:57 | P.PN ---
Subjective Progress Note Date: 09/04/22 82-year-old male with recent multiple admission in the hospital initial concern for the right knee septic arthritis status post I&D cultures were negative afterwards the patient did have admission to hospital with pneumonia and sputum was positive for Pseudomonas for which the patient has completed antibiotic therapy and the patient was recently discharged from the assisted to home on 08/18/2022 did mention that while in the assisted he has developed significant excoriation of the scrotal and pelvic area for which they were advised nystatin cream which they may have been applying patient however has been brought into the ER concerning for the patient getting weaker and noticed to having a worsening of the rash to the groin and scrotal area the area has become more red or and having weeping edema and the patient complaining of pain however unable to quantify it any further no high-grade fever has been reported and patient on arrival to the ER was afebrile mild tachycardia white count of 16.5 with a left shift creatinine has been normal there exams are normal urine has been positive mildly patient did have a chest x-ray bilateral infiltrate and effusion correlate for mild CHF otherwise consider pneumonia KUB x-ray bilateral lobe infiltrate and effusion nonspecific abdominal patient was started on Zosyn infectious disease was consulted 09/01/2021 Patient seen and evaluated in follow-up on the regular medical floor. He is currently resting in bed. Awake and alert. Maintaining O2 saturations in the 90s on room air. Afebrile. Hemodynamically stable. Groin wound cultures are positive for methicillin-resistant Staphylococcus aureus, Klebsiella pneumoniae, pseudomonas aeruginosa. Blood cultures pending. Urine culture revealed no growth. Sodium 139. Potassium 3.8. Bicarb 24. BUN 19. Creatinine 0.95. Glucose 196. He is continued on cefepime and vancomycin. 09/02/2022 the patient is seen and evaluated in room at bedside; remains to be afebrile and the patient is breathing comfortably complaining of overall not feeling well however patient not hypoxic or need for supplemental oxygen no chest pain no abdominal pain no diarrhea has been reported has been concerned with the patient developing pressure ulcer to the heel area -patient did have MRSA bacteremia and the cultures obtained from the groin area is growing MRSA and Pseudomonas aeruginosa along with ESBL Klebsiella -blood cultures has been repeated document clearance of bacteremia -patient to continue the vancomycin , However discontinue cefepime start the patient on meropenem to cover for the ESBL pathogen. --patient with the left heel unstageable pressure ulcer to keep the area off the pressure and dry 09/03/2022 Patient is seen and evaluated at bedside; called patient's are update on kimberly carr's condition; is somewhat concerned about pain control and reports tramadol was not resumed upon request Vital signs are reviewed. Temperature 97.6, pulse 54, respiration 18 and blood pressure of 127/54. O2 saturation 91% -patient did have MRSA bacteremia and the cultures obtained from the groin area is growing MRSA and Pseudomonas aeruginosa along with ESBL Klebsiella -blood cultures has been repeated document clearance of bacteremia -patient to continue the vancomycin and meropenem to cover for the ESBL pathogen. patient with the left heel unstageable pressure ulcer to keep the area off the pressure and dry Patient is being followed by ID and will need PICC for outpatient IV antibiotics x 2 weeks 09/04/2022 Patient is seen and evaluated in room at bedside; He is currently sitting up at the bedside. Awake and alert in no acute distress. Continues to improve. Up with assistance. Groin wounds were positive for MRSA, Klebsiella, Pseudomonas. Blood cultures positive for MRSA. White count 13.9. Hemoglobin 10.2. Platelets 464. Sodium 140. Potassium 4.6. Bicarb 25. BUN 19. Creatinine 1.0. Glucose 209. He is continued on fluconazole, meropenem and vancomycin. Remains on bronchodilators. Anticoagulated with Eliquis. -- Patient did have for IV antibiotics to complete a two-week IV antibiotic therapy Objective - Vital Signs Vital signs: Vital Signs Temp 97.9 F 09/04/22 07:21 Pulse 44 L 09/04/22 08:45 Resp 18 09/04/22 08:45 BP 125/75 09/04/22 07:21 Pulse Ox 97 09/04/22 07:21 FiO2 Intake & Output 09/03/22 09/04/22 09/04/22 18:59 06:59 18:59 Intake Total 350 350 Output Total 450 400 200 Balance -100 -50 -200 Intake: Intake, IV Titration 350 350 Amount Meropenem 1 gm In Sodium 100 100 Chloride 0.9% 100 ml @ 33 .3 mls/hr IVPB Q8HR [facility] Rx#:[id number] Vancomycin 1,250 mg In 250 250 Sodium Chloride 0.9% 250 ml @ 125 mls/hr IVPB Q16H [facility] Rx#:[id number] Output: Urine 450 400 200 Other: Voiding Method Urinal Urinal Urinal Diaper Diaper Diaper Incontinent Incontinent Incontinent # Voids 5 3 # Bowel Movements 2 - Exam GENERAL EXAM: Alert, pleasant 82-year-old male, on room air, comfortable in no apparent distress. HEAD: Normocephalic. EYES: Normal reaction of pupils, equal size. NECK: No masses, no JVD. CHEST: No chest wall deformity. LUNGS: Equal air entry with no crackles, wheeze, rhonchi or dullness. CVS: S1 and S2 normal with no audible murmur, regular rhythm. ABDOMEN: No hepatosplenomegaly, normal bowel sounds, no guarding or rigidity. SKIN: Excoriation and wounds of the bilateral groins CENTRAL NERVOUS SYSTEM: No focal deficits, tone is normal in all 4 extremities. EXTREMITIES: There is no peripheral edema. No clubbing, no cyanosis. Peripheral pulses are intact. - Labs CBC & Chem 7: 09/04/22 05:25 09/04/22 05:25 Labs: Abnormal Lab Results - Last 24 Hours (Table) 09/03/22 09/03/22 09/03/22 Range/Units 12:06 16:42 20:21 WBC (4.50-10.00) X 10*3/uL RBC (4.40-5.60) X 10*6/uL Hgb (12.0-15.0) d/dL Hct (39.6-50.0) % MCHC (32.0-37.0) d/dL RDW (11.5-14.5) % Plt Count (140-440) X 10*3/uL Neutrophils # (1.80-7.70) X 10*3/uL Monocytes # (0.20-1.00) X 10*3/uL Glucose (70-110) mg/dL POC Glucose (mg/dL) 296 H 223 H 255 H (70-110) mg/dL 09/04/22 09/04/22 09/04/22 Range/Units 05:25 05:25 05:58 WBC 13.93 H (4.50-10.00) X 10*3/uL RBC 3.52 L (4.40-5.60) X 10*6/uL Hgb 10.2 L (12.0-15.0) d/dL Hct 32.2 L (39.6-50.0) % MCHC 31.7 L (32.0-37.0) d/dL RDW 15.5 H (11.5-14.5) % Plt Count 464 H (140-440) X 10*3/uL Neutrophils # 11.10 H (1.80-7.70) X 10*3/uL Monocytes # 1.02 H (0.20-1.00) X 10*3/uL Glucose 209 H (70-110) mg/dL POC Glucose (mg/dL) 204 H (70-110) mg/dL Microbiology - Last 24 Hours (Table) 08/29/22 14:03 Blood Culture - Final Blood 09/01/22 08:14 Blood Culture - Preliminary Blood Assessment and Plan Assessment: Generalized weakness secondary to suspected health care acquired pneumonia, possible diastolic congestive heart failure. Procalcitonin 0.20. ProBNP 528 Excoriation and wounds of the scrotal, groin area positive for methicillin- resistant staph aureus, Klebsiella pneumoniae, Pseudomonas aeruginosa. Blood cu ltures pending Recent admission for pseudomonas aeruginosa pneumonia Recent admission for right knee septic arthritis requiring incision and drainage and wound VAC and weeks of IV antibiotics Paroxysmal atrial fibrillation anticoagulated with Eliquis Hypertension Hyperlipidemia Diabetes mellitus Chronic obstructive pulmonary disease BPH/urinary retention Dementia Plan: Microbiology, labs and medications reviewed Currently on vancomycin and cefepime Stable and on room air -- Urology for urinary retention and recommending to keep Ingram catheter given incomplete bladder emptying and scrotal skin breakdown, beneficial for the patient
[2022-09-04] MEDS: METOPROLOL SUCCINATE (ER) 25 MG TAB.ER.24H PO SCH (20:51)
[2022-09-04] MEDS: ATORVASTATIN 20 MG TAB PO SCH (20:52)
[2022-09-04 20:57] LABS: Glucose,Whole Blood 257 mg/dL (70-110)
[2022-09-05] MEDS: VANCOMYCIN 1,250 MG in SODIUM CHLORIDE 0.9% 250 ML IVPB SCH ×2 (04:20→21:20)
[2022-09-05 06:09] LABS: Glucose,Whole Blood 206 mg/dL (70-110)
[2022-09-05] MEDS: PANTOPRAZOLE 40 MG TABLET PO SCH (06:55)
[2022-09-05] MEDS: INSULIN ASPART (NovoLOG) 100 UNIT/ML VIAL SQ SCH ×4 (06:55→22:24)
[2022-09-05] MEDS: FOLIC ACID 1 MG TAB PO SCH (08:59)
[2022-09-05] MEDS: SPIRONOLACTONE 25 MG TAB PO SCH (08:59)
[2022-09-05] MEDS: NON FORMULARY DRUG (Prevagen 1 CAP) PO SCH (09:00)
[2022-09-05] MEDS: MULTIVITAMINS, THERA 1 EACH TAB PO SCH (09:00)
[2022-09-05] MEDS: THIAMINE 100 MG TAB PO SCH (09:00)
[2022-09-05] MEDS: metFORMIN 500 MG TAB PO SCH ×2 (09:00→17:01)
[2022-09-05] MEDS: FUROSEMIDE 40 MG TAB PO SCH (09:00)
[2022-09-05] MEDS: FLUCONAZOLE 100 MG TAB PO SCH (09:00)
[2022-09-05] MEDS: TAMSULOSIN 0.4 MG CAP.ER.24H PO SCH (09:00)
[2022-09-05] MEDS: OFLOXACIN 0.3% OPHTH DROPS 5 ML BOTTLE BOTH EYES SCH ×3 (09:00→21:28)
[2022-09-05] MEDS: NYSTATIN 100,000 UNIT/GM POWD 15 GM TOPICAL SCH ×3 (09:00→21:20)
[2022-09-05] MEDS: APIXABAN 5 MG TAB PO SCH ×2 (09:00→21:20)
[2022-09-05] MEDS: NYSTATIN 100,000UNIT/GM CREAM 30 GM TUBE TOPICAL SCH ×3 (09:00→21:20)
[2022-09-05] MEDS: RIVASTIGMINE TARTRATE 3 MG PO SCH ×2 (09:01→21:20)
[2022-09-05] MEDS: MEROPENEM 1 GM in SODIUM CHLORIDE 0.9% 100 ML IVPB SCH ×3 (09:10→23:57)
[2022-09-05] MEDS: SYMBICORT 160-4.5 MCG INHALER INHALATION SCH ×2 (09:24→21:01)
[2022-09-05] MEDS: IPRATROPIUM-ALBUTEROL 3 ML NEB INHALATION SCH ×4 (09:24→21:02)
[2022-09-05 11:34] LABS: Glucose,Whole Blood 220 mg/dL (70-110)
--- NOTE | 2022-09-05 13:48 | P.PN ---
Subjective Progress Note Date: 09/05/22 82-year-old male with recent multiple admission in the hospital initial concern for the right knee septic arthritis status post I&D cultures were negative afterwards the patient did have admission to hospital with pneumonia and sputum was positive for Pseudomonas for which the patient has completed antibiotic therapy and the patient was recently discharged from the shelter to home on 08/18/2022 did mention that while in the shelter he has developed significant excoriation of the scrotal and pelvic area for which they were advised nystatin cream which they may have been applying patient however has been brought into the ER concerning for the patient getting weaker and noticed to having a worsening of the rash to the groin and scrotal area the area has become more red or and having weeping edema and the patient complaining of pain however unable to quantify it any further no high-grade fever has been reported and patient on arrival to the ER was afebrile mild tachycardia white count of 16.5 with a left shift creatinine has been normal there exams are normal urine has been positive mildly patient did have a chest x-ray bilateral infiltrate and effusion correlate for mild CHF otherwise consider pneumonia KUB x-ray bilateral lobe infiltrate and effusion nonspecific abdominal patient was started on Zosyn infectious disease was consulted 09/01/2021 Patient seen and evaluated in follow-up on the regular medical floor. He is currently resting in bed. Awake and alert. Maintaining O2 saturations in the 90s on room air. Afebrile. Hemodynamically stable. Groin wound cultures are positive for methicillin-resistant Staphylococcus aureus, Klebsiella pneumoniae, pseudomonas aeruginosa. Blood cultures pending. Urine culture revealed no growth. Sodium 139. Potassium 3.8. Bicarb 24. BUN 19. Creatinine 0.95. Glucose 196. He is continued on cefepime and vancomycin. 09/02/2022 the patient is seen and evaluated in room at bedside; remains to be afebrile and the patient is breathing comfortably complaining of overall not feeling well however patient not hypoxic or need for supplemental oxygen no chest pain no abdominal pain no diarrhea has been reported has been concerned with the patient developing pressure ulcer to the heel area -patient did have MRSA bacteremia and the cultures obtained from the groin area is growing MRSA and Pseudomonas aeruginosa along with ESBL Klebsiella -blood cultures has been repeated document clearance of bacteremia -patient to continue the vancomycin , However discontinue cefepime start the patient on meropenem to cover for the ESBL pathogen. --patient with the left heel unstageable pressure ulcer to keep the area off the pressure and dry 09/03/2022 Patient is seen and evaluated at bedside; called patient's are update on patient's condition; is somewhat concerned about pain control and reports tramadol was not resumed upon request Vital signs are reviewed. Temperature 97.6, pulse 54, respiration 18 and blood pressure of 127/54. O2 saturation 91% -patient did have MRSA bacteremia and the cultures obtained from the groin area is growing MRSA and Pseudomonas aeruginosa along with ESBL Klebsiella -blood cultures has been repeated document clearance of bacteremia -patient to continue the vancomycin and meropenem to cover for the ESBL pathogen. patient with the left heel unstageable pressure ulcer to keep the area off the pressure and dry Patient is being followed by ID and will need PICC for outpatient IV antibiotics x 2 weeks 09/04/2022 Patient is seen and evaluated in room at bedside; He is currently sitting up at the bedside. Awake and alert in no acute distress. Continues to improve. Up with assistance. Groin wounds were positive for MRSA, Klebsiella, Pseudomonas. Blood cultures positive for MRSA. White count 13.9. Hemoglobin 10.2. Platelets 464. Sodium 140. Potassium 4.6. Bicarb 25. BUN 19. Creatinine 1.0. Glucose 209. He is continued on fluconazole, meropenem and vancomycin. Remains on bronchodilators. Anticoagulated with Eliquis. -- Patient did have for IV antibiotics to complete a two-week IV antibiotic therapy 09/05. Patient seen and examined. at the bedside, she had a lot of questions about the patient's care and prognosis. All questions were answered. REVIEW OF SYSTEMS: CONSTITUTIONAL: No fever, no malaise,. CARDIOVASCULAR: No chest pain, no palpitations, no syncope. PULMONARY: No shortness of breath, no cough, GASTROINTESTINAL: No diarrhea, no nausea, no vomiting, no abdominal pain. NEUROLOGICAL: No headaches, no weakness, PHYSICAL EXAMINATION: GENERAL: The patient is alert and oriented x3, not in any acute distress. Well developed, well nourished. HEENT: Pupils are round and equally reacting to light. EOMI. No scleral icterus. No conjunctival pallor. Normocephalic, atraumatic. No pharyngeal erythema. No thyromegaly. CARDIOVASCULAR: S1 and S2 present. No murmurs, rubs, or gallops. PULMONARY: Chest is clear to auscultation, no wheezing or crackles. ABDOMEN: Soft, nontender, nondistended, normoactive bowel sounds. No palpable organomegaly. MUSCULOSKELETAL: No joint swelling or deformity. EXTREMITIES: No cyanosis, clubbing, or pedal edema. NEUROLOGICAL: Gross neurological examination did not reveal any focal deficits. SKIN: No rashes. Assessment and plan Generalized weakness secondary to suspected health care acquired pneumonia, possible diastolic congestive heart failure. Procalcitonin 0.20. ProBNP 528 MRSA bacteremia Cutaneous candidiasis Excoriation and wounds of the scrotal, groin area positive for methicillin- resistant staph aureus, Klebsiella pneumoniae, Pseudomonas aeruginosa. Blood cultures pending Recent admission for pseudomonas aeruginosa pneumonia Recent admission for right knee septic arthritis requiring incision and drainage and wound VAC and weeks of IV antibiotics Paroxysmal atrial fibrillation anticoagulated with Eliquis Hypertension Hyperlipidemia Diabetes mellitus Chronic obstructive pulmonary disease BPH/urinary retention Dementia Monitor vital signs Monitor CBC Monitor CMP Continue telemetry monitoring Continue fluconazole, meropenem and vancomycin ID following Follow-up on cardiology recommendations Labs and medication were reviewed.. Continue same treatment. Continue with symptomatic treatment. Resume home medication. Monitor labs and vitals. DVT and GI prophylaxis. Further recommendations as per clinical course of the patient DVT prophylaxis: Eliquis Objective - Vital Signs Vital signs: Vital Signs Temp 97.7 F 09/05/22 07:55 Pulse 68 09/05/22 09:38 Resp 18 09/05/22 07:55 BP 116/63 09/05/22 07:55 Pulse Ox 97 09/05/22 07:55 FiO2 Intake & Output 09/04/22 09/05/22 09/05/22 18:59 06:59 18:59 Intake Total 350 Output Total 200 Balance 150 Intake: Intake, IV Titration 350 Amount Meropenem 1 gm In Sodium 100 Chloride 0.9% 100 ml @ 33 .3 mls/hr IVPB Q8HR [facility] Rx#:[id number] Vancomycin 1,250 mg In 250 Sodium Chloride 0.9% 250 ml @ 125 mls/hr IVPB Q16H [facility] Rx#:[id number] Output: Urine 200 Other: Voiding Method Urinal Urinal Urinal Diaper Incontinent Incontinent Incontinent # Voids 3 # Bowel Movements 1 - Labs CBC & Chem 7: 09/04/22 05:25 09/04/22 05:25 Labs: Abnormal Lab Results - Last 24 Hours (Table) 09/04/22 09/04/22 09/04/22 Range/Units 11:34 16:40 20:55 POC Glucose (mg/dL) 363 H 195 H 257 H (70-110) mg/dL 09/05/22 Range/Units 06:06 POC Glucose (mg/dL) 206 H (70-110) mg/dL Microbiology - Last 24 Hours (Table) 09/01/22 08:14 Blood Culture - Preliminary Blood
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
[2022-09-05 16:58] LABS: Glucose,Whole Blood 204 mg/dL (70-110)
[2022-09-05] MEDS: traMADol 50 MG TAB PO PRN (18:16)
[2022-09-05] MEDS ORDERED: VANCOMYCIN TROUGH DUE 1 EACH MISC MISCELLANE ONE (20:00)
[2022-09-05 20:41] LABS: African American GFR (CKD) 86 (>60 ml/min/1.73 sqM); Non-African American GFR(CKD) 74 (>60 ml/min/1.73 sqM)
[2022-09-05 21:18] LABS: Glucose,Whole Blood 182 mg/dL (70-110)
[2022-09-05] MEDS: METOPROLOL SUCCINATE (ER) 25 MG TAB.ER.24H PO SCH (21:20)
[2022-09-05] MEDS: ATORVASTATIN 20 MG TAB PO SCH (21:20)
--- NOTE | 2022-09-05 22:39 | CONS ---
CONSULTATION CHIEF COMPLAINT: Atrial fibrillation. HISTORY OF PRESENT ILLNESS: Kenroy is an 82-year-old gentleman who has been in the hospital for almost a week now. He initially presented with feeling progressively weak, short of breath, fatigue, tired, little confused and has significant edema and infection around the perineal and scrotal area. I have been consulted because of atrial fibrillation. The patient had a run of atrial fibrillation and received intravenous Lopressor, for which I have been consulted. At the time of my evaluation, he is in sinus rhythm and is already adequately anticoagulated. He carries a history of atrial fibrillation and apparently had ablation in the past. PAST MEDICAL HISTORY: Significant for atrial fibrillation. CURRENT MEDICATIONS: At home included, 1. Glipizide. 2. Exelon. 3. Singulair. 4. Lasix. 5. Duoneb. 6. Lipitor. 7. Eliquis. ALLERGIES: Aricept and [place]. FAMILY HISTORY: Negative for premature coronary artery disease. SOCIAL HISTORY: Negative for current smoking, EtOH abuse, or drug abuse. REVIEW OF SYSTEMS: HEENT: Unremarkable. CARDIAC: As described above. RESPIRATORY: Negative. GI: Negative. GENITOURINARY: Negative. ALLERGY/IMMUNOLOGY: Negative. SKIN: Negative. MUSCULOSKELETAL: Significant for arthritis. PSYCHOSOCIAL: Negative. DERM: Negative. CONSTITUTIONAL: Negative. Rest of the system review is not relevant. PHYSICAL EXAMINATION: GENERAL: Comfortable at rest. VITAL SIGNS: Stable. CHEST: Reveals good air entry bilaterally. HEART: Reveals first and second heart sounds. Systolic murmur at the apex. ABDOMEN: Soft. EXTREMITIES: Did not reveal any edema. Peripheral pulses are felt. LABORATORY DATA: Labs show that the potassium is 4.6, hemoglobin is 10.2, white cell count is elevated at 13. ASSESSMENT: 1. Paroxysmal atrial fibrillation. 2. Cellulitis. 3. Possible pneumonia. 4. Hypertension. PLAN: I will continue the Eliquis and the beta randal that the patient is on. MMODL / IJN: [id number] /
[2022-09-06 05:46] LABS: Glucose,Whole Blood 166 mg/dL (70-110)
[2022-09-06] MEDS: VANCOMYCIN 1,250 MG in SODIUM CHLORIDE 0.9% 250 ML IVPB SCH (06:44)
[2022-09-06] MEDS: INSULIN ASPART (NovoLOG) 100 UNIT/ML VIAL SQ SCH ×4 (06:49→21:11)
[2022-09-06] MEDS: PANTOPRAZOLE 40 MG TABLET PO SCH (06:49)
[2022-09-06] MEDS: metFORMIN 500 MG TAB PO SCH ×2 (06:49→17:25)
[2022-09-06] MEDS: NYSTATIN 100,000 UNIT/GM POWD 15 GM TOPICAL SCH ×3 (08:39→21:11)
[2022-09-06] MEDS: NYSTATIN 100,000UNIT/GM CREAM 30 GM TUBE TOPICAL SCH ×3 (08:39→21:11)
[2022-09-06] MEDS: RIVASTIGMINE TARTRATE 3 MG PO SCH ×2 (08:40→21:11)
[2022-09-06] MEDS: OFLOXACIN 0.3% OPHTH DROPS 5 ML BOTTLE BOTH EYES SCH ×3 (08:40→21:11)
[2022-09-06] MEDS: FOLIC ACID 1 MG TAB PO SCH (08:41)
[2022-09-06] MEDS: FUROSEMIDE 40 MG TAB PO SCH (08:41)
[2022-09-06] MEDS: SPIRONOLACTONE 25 MG TAB PO SCH (08:41)
[2022-09-06] MEDS: APIXABAN 5 MG TAB PO SCH ×2 (08:41→21:10)
[2022-09-06] MEDS: TAMSULOSIN 0.4 MG CAP.ER.24H PO SCH (08:41)
[2022-09-06] MEDS: NON FORMULARY DRUG (Prevagen 1 CAP) PO SCH (08:41)
[2022-09-06] MEDS: THIAMINE 100 MG TAB PO SCH (08:41)
[2022-09-06] MEDS: MULTIVITAMINS, THERA 1 EACH TAB PO SCH (08:41)
[2022-09-06] MEDS: FLUCONAZOLE 100 MG TAB PO SCH (08:41)
[2022-09-06] MEDS: MEROPENEM 1 GM in SODIUM CHLORIDE 0.9% 100 ML IVPB SCH ×3 (08:46→23:49)
[2022-09-06] MEDS: IPRATROPIUM-ALBUTEROL 3 ML NEB INHALATION SCH ×4 (09:40→20:46)
[2022-09-06] MEDS: SYMBICORT 160-4.5 MCG INHALER INHALATION SCH ×2 (09:40→20:45)
[2022-09-06 11:11] LABS: Glucose,Whole Blood 190 mg/dL (70-110)
[2022-09-06 11:34] LABS: Basophils # (A) 0.11 X 10*3/uL (0.00-0.10); Eosinophils # (A) 0.38 X 10*3/uL (0.04-0.35); Eosinophils % (A) 3.6 %; HCT 33.3 % (39.6-50.0); HGB 10.6 d/dL (12.0-15.0); Lymphocytes # (A) 1.34 X 10*3/uL (0.90-5.00); Lymphocytes % (A) 12.7 %; MCHC 31.8 d/dL (32.0-37.0); Mean Platelet Volume 10.3 FL (9.5-12.2); Monocytes # (A) 0.84 X 10*3/uL (0.20-1.00); NRBC Per 100 WBC 0 X 10*3/uL (0.00-0.01); Neutrophils # (A) 7.74 X 10*3/uL (1.80-7.70); Neutrophils % (A) 73.7 %; Platelet Count 448 X 10*3/uL (140-440); RBC 3.66 X 10*6/uL (4.40-5.60); RDW 15.4 % (11.5-14.5); WBC 10.51 X 10*3/uL (4.50-10.00)
[2022-09-06 11:46] LABS: BUN/Creat Ratio 23.11 Ratio (12.00-20.00); Blood Urea Nitrogen 20.8 mg/dL (9.0-27.0); Chloride 105 mmol/L (96-109); Glucose 151 mg/dL (70-110); Potassium 4.5 mmol/L (3.5-5.5); Sodium 138 mmol/L (135-145)
[2022-09-06 11:47] LABS: ALT 47 U/L (10-49); AST 37 U/L (14-35); Albumin 2.5 d/dL (3.8-4.9); Albumin/Globulin Ratio 1.04 Ratio (1.60-3.17); Alkaline Phosphatase 60 U/L (41-126); Calcium 10.2 mg/dL (8.7-10.3); Carbon Dioxide 22.2 mmol/L (21.6-31.8); Globulin 2.4 d/dL (1.6-3.3); Total Bilirubin 0.2 mg/dL (0.3-1.2); Total Protein 4.9 d/dL (6.2-8.2)
--- NOTE | 2022-09-06 12:15 | PN ---
PROGRESS NOTE SUBJECTIVE: An 82-year-old gentleman who is admitted to hospital with cellulitis, has history of atrial fibrillation and I was consulted for the same yesterday. He is doing well and is ambulating without any problems. Stable to be transferred to long-term care facility. OBJECTIVE: GENERAL: Comfortable at rest. VITAL SIGNS: Stable. CHEST: Reveals good air entry bilaterally. HEART: Reveals first and second heart sounds. No gallop. EXTREMITIES: Exam of extremities did not reveal any edema. MEDICATIONS: The patient is currently on Eliquis, Toprol. ASSESSMENT AND PLAN: Paroxysmal atrial fibrillation. The patient is doing well from cardiac standpoint. No other cardiac workup at this time. MMODL / IJN: [id number] /
[2022-09-06] MEDS ORDERED: LIDOCAINE 1% INJ 10MG/ML (20 ML MDV) ONE (13:08)
--- NOTE | 2022-09-06 13:10 | P.DS ---
Providers Date of admission: 08/29/22 15:24 Expected date of discharge: 09/06/22 Attending physician: Franky Cordova Consults: 08/29/22 15:24 Consult Physician Urgent Consulting Provider: Evie Glass Consult Reason/Comments: scrotal cellulitis Do you want consulting provider notified?: Yes 08/29/22 15:57 Consult Physician Routine Consulting Provider: Chang Hodge Consult Reason/Comments: copd Do you want consulting provider notified?: Yes 08/30/22 12:03 Consult Physician Urgent Consulting Provider: Krzysztof Nunes Consult Reason/Comments: retention, difficult anatomy for funes insertion Do you want consulting provider notified?: Yes 09/04/22 10:50 Consult Physician Routine Consulting Provider: [facility] Consult Reason/Comments: Afib RVR Do you want consulting provider notified?: Yes Primary care physician: [facility] Course: Discharge diagnoses; Generalized weakness secondary to suspected health care acquired pneumonia, possible diastolic congestive heart failure. Procalcitonin 0.20. ProBNP 528 MRSA bacteremia Cutaneous candidiasis Excoriation and wounds of the scrotal, groin area positive for methicillin- resistant staph aureus, Klebsiella pneumoniae, Pseudomonas aeruginosa. Blood cultures pending Recent admission for pseudomonas aeruginosa pneumonia Recent admission for right knee septic arthritis requiring incision and drainage and wound VAC and weeks of IV antibiotics Paroxysmal atrial fibrillation anticoagulated with Eliquis Hypertension Hyperlipidemia Diabetes mellitus Chronic obstructive pulmonary disease BPH/urinary retention Dementia Hospital course; 2-year-old male with recent multiple admission in the hospital initial concern for the right knee septic arthritis status post I&D cultures were n egative afterwards the patient did have admission to hospital with pneumonia and sputum was positive for Pseudomonas for which the patient has completed antibiotic therapy and the patient was recently discharged from the longterm to home on 08/18/2022 did mention that while in the longterm he has developed significant excoriation of the scrotal and pelvic area for which they were advised nystatin cream which they may have been applying patient however has been brought into the ER concerning for the patient getting weaker and noticed to having a worsening of the rash to the groin and scrotal area the area has become more red or and having weeping edema and the patient complaining of pain however unable to quantify it any further no high-grade fever has been reported and patient on arrival to the ER was afebrile mild tachycardia white count of 16.5 with a left shift creatinine has been normal there exams are normal urine has been positive mildly patient did have a chest x-ray bilateral infiltrate and effusion correlate for mild CHF otherwise consider pneumonia KUB x-ray bilateral lobe infiltrate and effusion nonspecific abdominal patient was started on Zosyn infectious disease was consulted 09/01/2021 Patient seen and evaluated in follow-up on the regular medical floor. He is currently resting in bed. Awake and alert. Maintaining O2 saturations in the 90s on room air. Afebrile. Hemodynamically stable. Groin wound cultures are positive for methicillin-resistant Staphylococcus aureus, Klebsiella pneumoniae, pseudomonas aeruginosa. Blood cultures pending. Urine culture revealed no growth. Sodium 139. Potassium 3.8. Bicarb 24. BUN 19. Creatinine 0.95. Glucose 196. He is continued on cefepime and vancomycin. 09/02/2022 the patient is seen and evaluated in room at bedside; remains to be afebrile and the patient is breathing comfortably complaining of overall not feeling well however patient not hypoxic or need for supplemental oxygen no chest pain no abdominal pain no diarrhea has been reported has been concerned with the patient developing pressure ulcer to the heel area -patient did have MRSA bacteremia and the cultures obtained from the groin area is growing MRSA and Pseudomonas aeruginosa along with ESBL Klebsiella -blood cultures has been repeated document clearance of bacteremia -patient to continue the vancomycin , However discontinue cefepime start the patient on meropenem to cover for the ESBL pathogen. --patient with the left heel unstageable pressure ulcer to keep the area off the pressure and dry 09/03/2022 Patient is seen and evaluated at bedside; called patient's are update on patient's condition; is somewhat concerned about pain control and reports tramadol was not resumed upon request Vital signs are reviewed. Temperature 97.6, pulse 54, respiration 18 and blood pressure of 127/54. O2 saturation 91% -patient did have MRSA bacteremia and the cultures obtained from the groin area is growing MRSA and Pseudomonas aeruginosa along with ESBL Klebsiella -blood cultures has been repeated document clearance of bacteremia -patient to continue the vancomycin and meropenem to cover for the ESBL pathogen. patient with the left heel unstageable pressure ulcer to keep the area off the pressure and dry Patient is being followed by ID and will need PICC for outpatient IV antibiotics x 2 weeks 09/04/2022 Patient is seen and evaluated in room at bedside; He is currently sitting up at the bedside. Awake and alert in no acute distress. Continues to improve. Up with assistance. Groin wounds were positive for MRSA, Klebsiella, Pseudomonas. Blood cultures positive for MRSA. White count 13.9. Hemoglobin 10.2. Platelets 464. Sodium 140. Potassium 4.6. Bicarb 25. BUN 19. Creatinine 1.0. Glucose 209. He is continued on fluconazole, meropenem and vancomycin. Remains on bronchodilators. Anticoagulated with Eliquis. -- Patient did have for IV antibiotics to complete a two-week IV antibiotic therapy 09/05. Patient seen and examined. at the bedside, she had a lot of questi ons about the patient's care and prognosis. All questions were answered. 09/06. Discuss with ID, they recommended keeping patient on Diflucan, meropenem and vancomycin for 2 more weeks. Patient medically stable for discharge PHYSICAL EXAMINATION: GENERAL: The patient is alert , not in any acute distress. Well developed, well nourished. HEENT: Pupils are round and equally reacting to light. EOMI. No scleral icterus. No conjunctival pallor. Normocephalic, atraumatic. No pharyngeal erythema. No thyromegaly. CARDIOVASCULAR: S1 and S2 present. No murmurs, rubs, or gallops. PULMONARY: Chest is clear to auscultation, no wheezing or crackles. ABDOMEN: Soft, nontender, nondistended, normoactive bowel sounds. No palpable organomegaly. MUSCULOSKELETAL: No joint swelling or deformity. EXTREMITIES: No cyanosis, clubbing, or pedal edema. NEUROLOGICAL: Gross neurological examination did not reveal any focal deficits. SKIN: No rashes. Patient Condition at Discharge: Good Plan - Discharge Summary Discharge Rx Participant: No New Discharge Prescriptions: New Fluconazole [Diflucan] 100 mg PO DAILY #14 tab Folic Acid 1 mg PO DAILY tab Pantoprazole [Protonix] 40 mg PO AC-BRKFST #14 tab Vancomycin 1,250 mg IVPB Q24H 14 Days each Meropenem [Merrem] 1 gm IVPB Q8HR 14 Days each traMADol HCl [Ultram] 50 mg PO Q8H PRN #9 tab PRN Reason: Mild To Moderate Pain (1 - 6) Thiamine [Vitamin B-1] 100 mg PO DAILY tab Continue Montelukast [Singulair] 10 mg PO HS Budesonide/Formoterol Fumarate [Symbicort 160-4.5 Mcg Inhaler] 2 puff INHALATION RT-BID Atorvastatin [Lipitor] 20 mg PO HS Ergocalciferol [Vitamin D2 (1250 Mcg = 71555 Iu)] 1,250 mcg PO FR Tamsulosin [Flomax] 0.4 mg PO DAILY Mirtazapine 15 mg PO HS Prevagen 1 cap PO DAILY Ipratropium-Albuterol Nebulize [Duoneb 0.5 mg-3 mg/3 ml Soln] 3 ml INHALATION RT-Q6H PRN PRN Reason: Shortness Of Breath Apixaban [Eliquis] 5 mg PO BID Ofloxacin 0.3% Ophth Soln [Ocuflox Ophth Soln] 2 drops BOTH EYES TID Nystatin 100,000 Unit/gm Powd [Mycostatin Powder] 1 applic TOPICAL TID Metoprolol Succinate (ER) [Toprol XL] 25 mg PO HS Rivastigmine Tartrate [Exelon] 3 mg PO BID Furosemide [Lasix] 40 mg PO DAILY Spironolactone 25 mg PO DAILY Ondansetron [Zofran] 4 - 8 mg PO Q6H PRN PRN Reason: Nausea glipiZIDE/METFORMIN HCL [glipiZIDE/METFORMIN HCL 2.5-500 mg] 1 tab PO BID Discontinued Doxycycline Hyclate 100 mg PO DAILY Nystatin 100,000Unit/gm Cream [Mycostatin Cream] 1 applic TOPICAL TID Discharge Medication List Atorvastatin [Lipitor] 20 mg PO HS 12/12/18 [History] Budesonide/Formoterol Fumarate [Symbicort 160-4.5 Mcg Inhaler] 2 puff INHALATION RT-BID 12/12/18 [History] Montelukast [Singulair] 10 mg PO HS 12/12/18 [History] Ergocalciferol [Vitamin D2 (1250 Mcg = 03815 Iu)] 1,250 mcg PO FR 04/25/21 [History] Metoprolol Succinate (ER) [Toprol XL] 25 mg PO HS 04/25/21 [History] Tamsulosin [Flomax] 0.4 mg PO DAILY 04/25/21 [History] Mirtazapine 15 mg PO HS 03/03/22 [History] Prevagen 1 cap PO DAILY 03/03/22 [History] Rivastigmine Tartrate [Exelon] 3 mg PO BID 03/03/22 [History] Apixaban [Eliquis] 5 mg PO BID 07/18/22 [History] Furosemide [Lasix] 40 mg PO DAILY 07/18/22 [History] Ipratropium-Albuterol Nebulize [Duoneb 0.5 mg-3 mg/3 ml Soln] 3 ml INHALATION RT-Q6H PRN 07/18/22 [History] Nystatin 100,000 Unit/gm Powd [Mycostatin Powder] 1 applic TOPICAL TID 08/29/22 [History] Ofloxacin 0.3% Ophth Soln [Ocuflox Ophth Soln] 2 drops BOTH EYES TID 08/29/22 [History] Ondansetron [Zofran] 4 - 8 mg PO Q6H PRN 08/29/22 [History] Spironolactone 25 mg PO DAILY 08/29/22 [History] glipiZIDE/METFORMIN HCL [glipiZIDE/METFORMIN HCL 2.5-500 mg] 1 tab PO BID 08/29/22 [History] Fluconazole [Diflucan] 100 mg PO DAILY #14 tab 09/06/22 [Rx] Folic Acid 1 mg PO DAILY tab 09/06/22 [Rx] Meropenem [Merrem] 1 gm IVPB Q8HR 14 Days each 09/06/22 [Rx] Pantoprazole [Protonix] 40 mg PO AC-BRKFST #14 tab 09/06/22 [Rx] Thiamine [Vitamin B-1] 100 mg PO DAILY tab 09/06/22 [Rx] Vancomycin 1,250 mg IVPB Q24H 14 Days each 09/06/22 [Rx] traMADol HCl [Ultram] 50 mg PO Q8H PRN #9 tab 09/06/22 [Rx] Follow up Appointment(s)/Referral(s): None,Stated [REFERRING] - 1-2 days Evie Glass MD [STAFF PHYSICIAN] - 1 Week Pete Walker MD [STAFF PHYSICIAN] - 1 Week Discharge Disposition: TRANSFER TO SNF/ECF
[2022-09-06] MEDS ORDERED: LIDOCAINE 1% INJ 10MG/ML (5 ML VIAL-PF) SQ ONE (13:31)
--- NOTE | 2022-09-06 13:37 | P.PN ---
Subjective Progress Note Date: 09/04/22 Principal diagnosis: Scrotal and groin area Cutaneous candidiasis and possible UTI Patient is a 82-year-old male with recent multiple admission in the hospital initial concern for the right knee septic arthritis status post I&D cultures were negative afterwards the patient did have admission to hospital with pneumonia and sputum was positive for Pseudomonas for which the patient has completed antibiotic therapy, patient has not been brought back to the hospital concerning for significant excoriation to his scrotal and groin area and weeping edema and also concerning for weakness. On today's evaluation that is 09/04/2022 the patient remains to be afebrile, the patient is breathing comfortably on room air, the patient denies chest pain no abdominal pain no diarrhea has been reported , groin and scrotal discomfort has improved Objective - Vital Signs Vital signs: Vital Signs Temp 97.7 F 09/04/22 15:06 Pulse 68 09/04/22 21:28 Resp 16 09/04/22 15:06 BP 116/67 09/04/22 15:06 Pulse Ox 94 L 09/04/22 15:06 FiO2 Intake & Output 09/04/22 09/04/22 09/05/22 06:59 18:59 06:59 Intake Total 350 350 Output Total 400 200 Balance -50 150 Intake: Intake, IV Titration 350 350 Amount Meropenem 1 gm In Sodium 100 100 Chloride 0.9% 100 ml @ 33 .3 mls/hr IVPB Q8HR [facility] Rx#:[id number] Vancomycin 1,250 mg In 250 250 Sodium Chloride 0.9% 250 ml @ 125 mls/hr IVPB Q16H [facility] Rx#:[id number] Output: Urine 400 200 Other: Voiding Method Urinal Urinal Diaper Diaper Incontinent Incontinent # Voids 3 # Bowel Movements 1 - Exam GENERAL DESCRIPTION: An elderly male lying in bed in no distress RESPIRATORY SYSTEM: Unlabored breathing , decreased breath sounds at bases HEART: S1 S2 regular rate and rhythm , ABDOMEN: Soft , no tenderness : The groin area excoriation has improved Patient did have a left heel unstageable pressure ulcer with no cellulitis - Labs CBC & Chem 7: 09/06/22 06:56 09/06/22 06:56 Labs: Abnormal Lab Results - Last 24 Hours (Table) 09/04/22 09/04/22 09/04/22 Range/Units 05:25 05:25 05:58 WBC 13.93 H (4.50-10.00) X 10*3/uL RBC 3.52 L (4.40-5.60) X 10*6/uL Hgb 10.2 L (12.0-15.0) d/dL Hct 32.2 L (39.6-50.0) % MCHC 31.7 L (32.0-37.0) d/dL RDW 15.5 H (11.5-14.5) % Plt Count 464 H (140-440) X 10*3/uL Neutrophils # 11.10 H (1.80-7.70) X 10*3/uL Monocytes # 1.02 H (0.20-1.00) X 10*3/uL Glucose 209 H (70-110) mg/dL POC Glucose (mg/dL) 204 H (70-110) mg/dL 09/04/22 09/04/22 09/04/22 Range/Units 11:34 16:40 20:55 WBC (4.50-10.00) X 10*3/uL RBC (4.40-5.60) X 10*6/uL Hgb (12.0-15.0) d/dL Hct (39.6-50.0) % MCHC (32.0-37.0) d/dL RDW (11.5-14.5) % Plt Count (140-440) X 10*3/uL Neutrophils # (1.80-7.70) X 10*3/uL Monocytes # (0.20-1.00) X 10*3/uL Glucose (70-110) mg/dL POC Glucose (mg/dL) 363 H 195 H 257 H (70-110) mg/dL Microbiology - Last 24 Hours (Table) 09/01/22 08:14 Blood Culture - Preliminary Blood 08/29/22 14:03 Blood Culture - Final Blood Assessment and Plan (1) Cutaneous candidiasis Current Visit: Yes Status: Acute Code(s): B37.2 - CANDIDIASIS OF SKIN AND NAIL SNOMED Code(s): 46011552 (2) MRSA bacteremia Current Visit: Yes Status: Acute Code(s): R78.81 - BACTEREMIA; B95.62 - METHICILLIN RESIS STAPH INFCT CAUSING DISEASES CLASSD [id number] SNOMED Code(s): 44658473487385908 (3) Cellulitis of groin Current Visit: Yes Status: Acute Code(s): L03.314 - CELLULITIS OF GROIN SNOMED Code(s): 68223717 Plan: 1patient with the hospital with weakness and progressive decline in this pat ient noted to have elevated white count source is multifactorial in this patient with extensive cutaneous candidiasis involving the scrotal and groin area, and did have mild positive UA concerning for possible UTI 2-patient did have MRSA bacteremia and the cultures obtained from the groin area is growing MRSA and Pseudomonas aeruginosa along with ESBL Klebsiella 3-blood cultures has been repeated document clearance of bacteremia , which are negative so far 4-patient to continue the vancomycin and meropenem to cover for the ESBL pathogen. 5patient with the left heel unstageable pressure ulcer to keep the area off the pressure and dry Time with Patient: Less than 30
--- NOTE | 2022-09-06 13:39 | P.PN ---
Subjective Progress Note Date: 09/05/22 Principal diagnosis: Scrotal and groin area Cutaneous candidiasis and possible UTI Patient is a 82-year-old male with recent multiple admission in the hospital initial concern for the right knee septic arthritis status post I&D cultures were negative afterwards the patient did have admission to hospital with pneumonia and sputum was positive for Pseudomonas for which the patient has completed antibiotic therapy, patient has not been brought back to the hospital concerning for significant excoriation to his scrotal and groin area and weeping edema and also concerning for weakness. On today's evaluation that is 09/05/2022 the patient continues to be afebrile, the patient is breathing comfortably on room air, the patient denies chest pain and no cough, no abdominal pain no diarrhea has been reported , groin and scrotal discomfort has improved Objective - Vital Signs Vital signs: Vital Signs Temp 98.7 F 09/05/22 13:12 Pulse 80 09/05/22 13:12 Resp 16 09/05/22 13:12 BP 117/73 09/05/22 13:12 Pulse Ox 97 09/05/22 13:12 FiO2 Intake & Output 09/04/22 09/05/22 18:59 06:59 Intake Total 290 Output Total 500 250 Balance -500 40 Weight 90.718 kg 75 kg Intake: Intake, IV Titration 50 Amount Vancomycin 1,250 mg In 50 Sodium Chloride 0.9% 250 ml @ 125 mls/hr IVPB Q24H [facility] Rx#:[id number] Oral 240 Output: Urine 500 250 Other: Voiding Method Urinal Urinal Incontinent Incontinent # Voids 1 3 # Bowel Movements - Exam GENERAL DESCRIPTION: An elderly male lying in bed in no distress RESPIRATORY SYSTEM: Unlabored breathing , decreased breath sounds at bases HEART: S1 S2 regular rate and rhythm , ABDOMEN: Soft , no tenderness : The groin area excoriation has improved Patient did have a left heel unstageable pressure ulcer with no cellulitis - Labs CBC & Chem 7: 09/06/22 06:56 09/06/22 06:56 Labs: Abnormal Lab Results - Last 24 Hours (Table) 09/05/22 09/05/22 09/06/22 Range/Units 16:49 21:17 05:44 WBC (4.50-10.00) X 10*3/uL RBC (4.40-5.60) X 10*6/uL Hgb (12.0-15.0) d/dL Hct (39.6-50.0) % MCHC (32.0-37.0) d/dL RDW (11.5-14.5) % Plt Count (140-440) X 10*3/uL Neutrophils # (1.80-7.70) X 10*3/uL Eosinophils # (0.04-0.35) X 10*3/uL Basophils # (0.00-0.10) X 10*3/uL BUN/Creatinine Ratio (12.00-20.00) Ratio Glucose (70-110) mg/dL POC Glucose (mg/dL) 204 H 182 H 166 H (70-110) mg/dL Total Bilirubin (0.3-1.2) mg/dL AST (14-35) U/L Total Protein (6.2-8.2) d/dL Albumin (3.8-4.9) d/dL Albumin/Globulin Ratio (1.60-3.17) Ratio 09/06/22 09/06/22 09/06/22 Range/Units 06:56 06:56 11:10 WBC 10.51 H (4.50-10.00) X 10*3/uL RBC 3.66 L (4.40-5.60) X 10*6/uL Hgb 10.6 L (12.0-15.0) d/dL Hct 33.3 L (39.6-50.0) % MCHC 31.8 L (32.0-37.0) d/dL RDW 15.4 H (11.5-14.5) % Plt Count 448 H (140-440) X 10*3/uL Neutrophils # 7.74 H (1.80-7.70) X 10*3/uL Eosinophils # 0.38 H (0.04-0.35) X 10*3/uL Basophils # 0.11 H (0.00-0.10) X 10*3/uL BUN/Creatinine Ratio 23.11 H (12.00-20.00) Ratio Glucose 151 H (70-110) mg/dL POC Glucose (mg/dL) 190 H (70-110) mg/dL Total Bilirubin 0.2 L (0.3-1.2) mg/dL AST 37 H (14-35) U/L Total Protein 4.9 L (6.2-8.2) d/dL Albumin 2.5 L (3.8-4.9) d/dL Albumin/Globulin Ratio 1.04 L (1.60-3.17) Ratio Microbiology - Last 24 Hours (Table) 09/01/22 08:14 Blood Culture - Final Blood Assessment and Plan (1) Cutaneous candidiasis Current Visit: Yes Status: Acute Code(s): B37.2 - CANDIDIASIS OF SKIN AND NAIL SNOMED Code(s): 95266545 (2) MRSA bacteremia Current Visit: Yes Status: Acute Code(s): R78.81 - BACTEREMIA; B95.62 - METHICILLIN RESIS STAPH INFCT CAUSING DISEASES CLASSD ELSR SNOMED Code(s): 47586922931779874 (3) Cellulitis of groin Current Visit: Yes Status: Acute Code(s): L03.314 - CELLULITIS OF GROIN SNOMED Code(s): 43893242 Plan: 1patient with the hospital with weakness and progressive decline in this patient noted to have elevated white count source is multifactorial in this patient with extensive cutaneous candidiasis involving the scrotal and groin area, and did have mild positive UA concerning for possible UTI 2-patient did have MRSA bacteremia and the cultures obtained from the groin area is growing MRSA and Pseudomonas aeruginosa along with ESBL Klebsiella 3-blood cultures has been repeated document clearance of bacteremia , which are negative so far 4-patient with the left heel unstageable pressure ulcer to keep the area off the pressure and dry 5- patient to continue the vancomycin and meropenem to cover for the ESBL pathogen. We will obtain a PICC line for outpatient IV antibiotics Time with Patient: Less than 30
--- NOTE | 2022-09-06 13:41 | P.PN ---
Subjective Progress Note Date: 09/06/22 Principal diagnosis: Scrotal and groin area Cutaneous candidiasis and possible UTI Patient is a 82-year-old male with recent multiple admission in the hospital initial concern for the right knee septic arthritis status post I&D cultures were negative afterwards the patient did have admission to hospital with pneumonia and sputum was positive for Pseudomonas for which the patient has completed antibiotic therapy, patient has not been brought back to the hospital concerning for significant excoriation to his scrotal and groin area and weeping edema and also concerning for weakness. On today's evaluation that is 09/06/2022 the patient denies any fever or any chills, the patient is breathing comfortably on room air, the patient denies chest pain or cough, the patient denies any nausea no vomiting no abdominal pain no diarrhea has been reported , groin and scrotal discomfort has improved Objective - Vital Signs Vital signs: Vital Signs Temp 98.7 F 09/06/22 08:00 Pulse 80 09/06/22 09:51 Resp 16 09/06/22 08:00 BP 117/73 09/06/22 08:00 Pulse Ox 97 09/06/22 08:00 FiO2 Intake & Output 09/05/22 09/06/22 09/06/22 18:59 06:59 18:59 Intake Total 290 Output Total 500 250 Balance -500 40 Weight 90.718 kg 75 kg Intake: Intake, IV Titration 50 Amount Vancomycin 1,250 mg In 50 Sodium Chloride 0.9% 250 ml @ 125 mls/hr IVPB Q24H [facility] Rx#:[id number] Oral 240 Output: Urine 500 250 Other: Voiding Method Urinal Urinal Urinal Incontinent Incontinent Incontinent # Voids 1 3 1 # Bowel Movements 1 - Exam GENERAL DESCRIPTION: An elderly male lying in bed in no distress RESPIRATORY SYSTEM: Unlabored breathing , decreased breath sounds at bases HEART: S1 S2 regular rate and rhythm , ABDOMEN: Soft , no tenderness : The groin area excoriation has improved Patient did have a left heel unstageable pressure ulcer with no cellulitis - Labs CBC & Chem 7: 09/06/22 06:56 09/06/22 06:56 Labs: Abnormal Lab Results - Last 24 Hours (Table) 09/05/22 09/05/22 09/06/22 Range/Units 16:49 21:17 05:44 WBC (4.50-10.00) X 10*3/uL RBC (4.40-5.60) X 10*6/uL Hgb (12.0-15.0) d/dL Hct (39.6-50.0) % MCHC (32.0-37.0) d/dL RDW (11.5-14.5) % Plt Count (140-440) X 10*3/uL Neutrophils # (1.80-7.70) X 10*3/uL Eosinophils # (0.04-0.35) X 10*3/uL Basophils # (0.00-0.10) X 10*3/uL BUN/Creatinine Ratio (12.00-20.00) Ratio Glucose (70-110) mg/dL POC Glucose (mg/dL) 204 H 182 H 166 H (70-110) mg/dL Total Bilirubin (0.3-1.2) mg/dL AST (14-35) U/L Total Protein (6.2-8.2) d/dL Albumin (3.8-4.9) d/dL Albumin/Globulin Ratio (1.60-3.17) Ratio 09/06/22 09/06/22 09/06/22 Range/Units 06:56 06:56 11:10 WBC 10.51 H (4.50-10.00) X 10*3/uL RBC 3.66 L (4.40-5.60) X 10*6/uL Hgb 10.6 L (12.0-15.0) d/dL Hct 33.3 L (39.6-50.0) % MCHC 31.8 L (32.0-37.0) d/dL RDW 15.4 H (11.5-14.5) % Plt Count 448 H (140-440) X 10*3/uL Neutrophils # 7.74 H (1.80-7.70) X 10*3/uL Eosinophils # 0.38 H (0.04-0.35) X 10*3/uL Basophils # 0.11 H (0.00-0.10) X 10*3/uL BUN/Creatinine Ratio 23.11 H (12.00-20.00) Ratio Glucose 151 H (70-110) mg/dL POC Glucose (mg/dL) 190 H (70-110) mg/dL Total Bilirubin 0.2 L (0.3-1.2) mg/dL AST 37 H (14-35) U/L Total Protein 4.9 L (6.2-8.2) d/dL Albumin 2.5 L (3.8-4.9) d/dL Albumin/Globulin Ratio 1.04 L (1.60-3.17) Ratio Microbiology - Last 24 Hours (Table) 09/01/22 08:14 Blood Culture - Final Blood Assessment and Plan (1) Cutaneous candidiasis Current Visit: Yes Status: Acute Code(s): B37.2 - CANDIDIASIS OF SKIN AND NAIL SNOMED Code(s): 79629075 (2) MRSA bacteremia Current Visit: Yes Status: Acute Code(s): R78.81 - BACTEREMIA; B95.62 - METHICILLIN RESIS STAPH INFCT CAUSING DISEASES CLASSD ELSR SNOMED Code(s): 28557367651294900 (3) Cellulitis of groin Current Visit: Yes Status: Acute Code(s): L03.314 - CELLULITIS OF GROIN SNOMED Code(s): 80398237 Plan: 1patient with the hospital with weakness and progressive decline in this patient noted to have elevated white count source is multifactorial in this patient with extensive cutaneous candidiasis involving the scrotal and groin area, and did have mild positive UA concerning for possible UTI 2-patient did have MRSA bacteremia and the cultures obtained from the groin area is growing MRSA and Pseudomonas aeruginosa along with ESBL Klebsiella 3-blood cultures has been repeated document clearance of bacteremia , which are negative so far 4-patient with the left heel unstageable pressure ulcer to keep the area off the pressure and dry 5- patient to continue the vancomycin and meropenem to cover for the ESBL pathogen , plan is for 2 weeks of antibiotics PICC line has been ordered once ar ranged he will be able to go to the retirement today Time with Patient: Less than 30
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
--- NOTE | 2022-09-06 14:17 | IR ---
PICC LINE PLACEMENT: HISTORY: Infection requiring long-term antibiotic therapy PROCEDURE: Ultrasound and fluoroscopic guidance of PICC line placement. COMPLICATIONS: None ANESTHESIA: 1. 1% Lidocaine locally. FINDINGS/TECHNIQUE: The procedure was explained to the patient. The risks, complications, benefits and alternatives were discussed and any questions were answered. Informed consent was obtained. The patient was placed supine on the fluoroscopic table and prepped and draped in the usual sterile fash ion. Utilizing a 21 gauge needle and sonographic and fluoroscopic guidance, access in the right bra chial vein was achieved and there is placement of a 0.018 guidewire. The vein is patent. A 4-F guzman th was placed over the guidewire. The guidewire and dilator were removed and a 4-F. PICC line was pl aced through the sheath with the tip at the level of the SVC. The sheath was removed, the catheter w as flushed and sutured into position. The patient was stable throughout the procedure and remained s table upon discharge from the Department of Radiology. The vein puncture was patent under ultrasound. A manning scale image was obtained to document patency of the vein punctured. All elements of the maximal barrier technique were utilized. FLUOROSCOPY TIME: DAP 0.0755Gy cm2 IMPRESSION: Successful PICC line placement under ultrasound and fluoroscopic guidance.
[2022-09-06 16:11] LABS: Glucose,Whole Blood 255 mg/dL (70-110)
[2022-09-06 20:15] LABS: Glucose,Whole Blood 222 mg/dL (70-110)
[2022-09-06] MEDS: ATORVASTATIN 20 MG TAB PO SCH (21:09)
[2022-09-06] MEDS: METOPROLOL SUCCINATE (ER) 25 MG TAB.ER.24H PO SCH (21:10)
[2022-09-07] MEDS ORDERED: VANCOMYCIN TROUGH DUE 1 EACH MISC MISCELLANE ONE (05:00)
[2022-09-07 05:44] LABS: African American GFR (CKD) 89 (>60 ml/min/1.73 sqM); Anion Gap 5 mmol/L; Blood Urea Nitrogen 23 mg/dL (9-20); Calcium 10.1 mg/dL (8.4-10.2); Carbon Dioxide 24 mmol/L (22-30); Chloride 105 mmol/L (98-107); Glucose 126 mg/dL (74-99); Non-African American GFR(CKD) 77 (>60 ml/min/1.73 sqM); Potassium 4.7 mmol/L (3.5-5.1); Sodium 134 mmol/L (137-145)
[2022-09-07 05:48] LABS: Glucose,Whole Blood 163 mg/dL (70-110)
[2022-09-07] MEDS: VANCOMYCIN 1,250 MG in SODIUM CHLORIDE 0.9% 250 ML IVPB SCH (06:29)
[2022-09-07] MEDS: PANTOPRAZOLE 40 MG TABLET PO SCH (06:29)
[2022-09-07] MEDS: metFORMIN 500 MG TAB PO SCH (06:29)
[2022-09-07] MEDS: INSULIN ASPART (NovoLOG) 100 UNIT/ML VIAL SQ SCH ×2 (06:29→12:20)
[2022-09-07 07:59] VITALS: BP 105/62; TEMP 98.4
[2022-09-07] MEDS: FUROSEMIDE 40 MG TAB PO SCH (08:35)
[2022-09-07] MEDS: FLUCONAZOLE 100 MG TAB PO SCH (08:35)
[2022-09-07] MEDS: SPIRONOLACTONE 25 MG TAB PO SCH (08:35)
[2022-09-07] MEDS: MULTIVITAMINS, THERA 1 EACH TAB PO SCH (08:35)
[2022-09-07] MEDS: FOLIC ACID 1 MG TAB PO SCH (08:35)
[2022-09-07] MEDS: APIXABAN 5 MG TAB PO SCH (08:35)
[2022-09-07] MEDS: MEROPENEM 1 GM in SODIUM CHLORIDE 0.9% 100 ML IVPB SCH (08:36)
[2022-09-07] MEDS: TAMSULOSIN 0.4 MG CAP.ER.24H PO SCH (08:36)
[2022-09-07] MEDS: THIAMINE 100 MG TAB PO SCH (08:36)
[2022-09-07] MEDS: RIVASTIGMINE TARTRATE 3 MG PO SCH (08:37)
[2022-09-07] MEDS: NYSTATIN 100,000 UNIT/GM POWD 15 GM TOPICAL SCH (08:38)
[2022-09-07] MEDS: NYSTATIN 100,000UNIT/GM CREAM 30 GM TUBE TOPICAL SCH (08:38)
[2022-09-07] MEDS: NON FORMULARY DRUG (Prevagen 1 CAP) PO SCH (08:40)
[2022-09-07] MEDS: OFLOXACIN 0.3% OPHTH DROPS 5 ML BOTTLE BOTH EYES SCH (08:40)
[2022-09-07] MEDS: IPRATROPIUM-ALBUTEROL 3 ML NEB INHALATION SCH ×2 (09:55→12:19)
[2022-09-07] MEDS: SYMBICORT 160-4.5 MCG INHALER INHALATION SCH (09:55)
[2022-09-07 09:56] VITALS: RESP 18
[2022-09-07 11:05] LABS: Glucose,Whole Blood 223 mg/dL (70-110)
[2022-09-07 12:21] VITALS: PULSE 86
--- NOTE | 2022-09-07 12:36 | P.PN ---
Subjective Progress Note Date: 09/07/22 History of present illness: This is an 82-year-old male presented to hospitals due to cellulitis with hist ory of atrial fibrillation. We were on consult for atrial fibrillation. He is currently off telemetry but is in a sinus rhythm. Patient was continued on eliquis and Toprol. He denies any chest pain or shortness of breath. No palpitations. He is scheduled to [facility] to [facility]. Physical examination: Gen: This is an 82-year-old male. He is resting bed appears to be comfortable. VS: reviewed blood pressure 105/62, heart rate in the 70s and 80s, afebrile, pulse ox 90% on room air. HEENT: Head is atraumatic, normocephalic. Pupils equal, round. Sclerae is anicteric. LUNGS: Good air entry bilaterally. No intercostal retractions. HEART: Regular rate and rhythm. No murmur. EXTREMITIES: No pedal edema. NEUROLOGICAL: Patient is awake. Assessment: Paroxysmal atrial fibrillation Plan: Continue patient on current cardiac medications Patient is cleared for discharge from cardiology and may follow-up in the office. Nurse practitioner note has been reviewed, I agree with documented findings and plan of care. Patient was seen and examined. Objective - Vital Signs Vital signs: Vital Signs Temp 98.4 F 09/07/22 07:08 Pulse 80 09/07/22 10:06 Resp 18 09/07/22 10:06 BP 105/62 09/07/22 07:08 Pulse Ox 98 09/07/22 07:08 FiO2 Intake & Output 09/06/22 09/07/22 09/07/22 18:59 06:59 18:59 Intake Total 900 Balance 900 Intake: Intake, IV Titration 450 Amount Meropenem 1 gm In Sodium 200 Chloride 0.9% 100 ml @ 33 .3 mls/hr IVPB Q8HR [facility] Rx#:[id number] Vancomycin 1,250 mg In 250 Sodium Chloride 0.9% 250 ml @ 125 mls/hr IVPB Q24H [facility] Rx#:[id number] Oral 450 Other: Voiding Method Urinal Urinal Urinal Incontinent Incontinent Incontinent # Voids 5 3 # Bowel Movements 1 - Labs CBC & Chem 7: 09/06/22 06:56 09/07/22 04:42 Labs: Abnormal Lab Results - Last 24 Hours (Table) 07/11/23 07/11/23 07/11/23 Range/Units 06:56 16:08 20:14 Sodium (137-145) mmol/L BUN (9-20) mg/dL BUN/Creatinine Ratio 23.11 H (12.00-20.00) Ratio Glucose 151 H (70-110) mg/dL POC Glucose (mg/dL) 255 H 222 H (70-110) mg/dL Total Bilirubin 0.2 L (0.3-1.2) mg/dL AST 37 H (14-35) U/L Total Protein 4.9 L (6.2-8.2) d/dL Albumin 2.5 L (3.8-4.9) d/dL Albumin/Globulin Ratio 1.04 L (1.60-3.17) Ratio 09/07/22 09/07/22 09/07/22 Range/Units 04:42 05:46 11:04 Sodium 134 L (137-145) mmol/L BUN 23 H (9-20) mg/dL BUN/Creatinine Ratio (12.00-20.00) Ratio Glucose 126 H (70-110) mg/dL POC Glucose (mg/dL) 163 H 223 H (70-110) mg/dL Total Bilirubin (0.3-1.2) mg/dL AST (14-35) U/L Total Protein (6.2-8.2) d/dL Albumin (3.8-4.9) d/dL Albumin/Globulin Ratio (1.60-3.17) Ratio Microbiology - Last 24 Hours (Table) 09/01/22 08:14 Blood Culture - Final Blood
--- NOTE | 2022-09-07 14:12 | P.PN ---
Subjective Progress Note Date: 09/07/22 82-year-old male with recent multiple admission in the hospital initial concern for the right knee septic arthritis status post I&D cultures were negative afterwards the patient did have admission to hospital with pneumonia and sputum was positive for Pseudomonas for which the patient has completed antibiotic therapy and the patient was recently discharged from the half-way to home on 08/18/2022 did mention that while in the half-way he has developed significant excoriation of the scrotal and pelvic area for which they were advised nystatin cream which they may have been applying patient however has been brought into the ER concerning for the patient getting weaker and noticed to having a worsening of the rash to the groin and scrotal area the area has become more red or and having weeping edema and the patient complaining of pain however unable to quantify it any further no high-grade fever has been reported and patient on arrival to the ER was afebrile mild tachycardia white count of 16.5 with a left shift creatinine has been normal there exams are normal urine has been positive mildly patient did have a chest x-ray bilateral infiltrate and effusion correlate for mild CHF otherwise consider pneumonia KUB x-ray bilateral lobe infiltrate and effusion nonspecific abdominal patient was started on Zosyn infectious disease was consulted 09/01/2021 Patient seen and evaluated in follow-up on the regular medical floor. He is currently resting in bed. Awake and alert. Maintaining O2 saturations in the 90s on room air. Afebrile. Hemodynamically stable. Groin wound cultures are positive for methicillin-resistant Staphylococcus aureus, Klebsiella pneumoniae, pseudomonas aeruginosa. Blood cultures pending. Urine culture revealed no growth. Sodium 139. Potassium 3.8. Bicarb 24. BUN 19. Creatinine 0.95. Glucose 196. He is continued on cefepime and vancomycin. 09/02/2022 the patient is seen and evaluated in room at bedside; remains to be afebrile and the patient is breathing comfortably complaining of overall not feeling well however patient not hypoxic or need for supplemental oxygen no chest pain no abdominal pain no diarrhea has been reported has been concerned with the patient developing pressure ulcer to the heel area -patient did have MRSA bacteremia and the cultures obtained from the groin area is growing MRSA and Pseudomonas aeruginosa along with ESBL Klebsiella -blood cultures has been repeated document clearance of bacteremia -patient to continue the vancomycin , However discontinue cefepime start the patient on meropenem to cover for the ESBL pathogen. --patient with the left heel unstageable pressure ulcer to keep the area off the pressure and dry 09/03/2022 Patient is seen and evaluated at bedside; called patient's are update on patient's condition; is somewhat concerned about pain control and reports tramadol was not resumed upon request Vital signs are reviewed. Temperature 97.6, pulse 54, respiration 18 and blood pressure of 127/54. O2 saturation 91% -patient did have MRSA bacteremia and the cultures obtained from the groin area is growing MRSA and Pseudomonas aeruginosa along with ESBL Klebsiella -blood cultures has been repeated document clearance of bacteremia -patient to continue the vancomycin and meropenem to cover for the ESBL pathogen. patient with the left heel unstageable pressure ulcer to keep the area off the pressure and dry Patient is being followed by ID and will need PICC for outpatient IV antibiotics x 2 weeks 09/04/2022 Patient is seen and evaluated in room at bedside; He is currently sitting up at the bedside. Awake and alert in no acute distress. Continues to improve. Up with assistance. Groin wounds were positive for MRSA, Klebsiella, Pseudomonas. Blood cultures positive for MRSA. White count 13.9. Hemoglobin 10.2. Platelets 464. Sodium 140. Potassium 4.6. Bicarb 25. BUN 19. Creatinine 1.0. Glucose 209. He is continued on fluconazole, meropenem and vancomycin. Remains on bronchodilators. Anticoagulated with Eliquis. -- Patient did have for IV antibiotics to complete a two-week IV antibiotic therapy 09/05. Patient seen and examined. at the bedside, she had a lot of questions about the patient's care and prognosis. All questions were answered. 09/07. Patient seen and examined. Patient was discharged yesterday, insurance authorization was late. Medically stable for discharge REVIEW OF SYSTEMS: CONSTITUTIONAL: No fever, no malaise,. CARDIOVASCULAR: No chest pain, no palpitations, no syncope. PULMONARY: No shortness of breath, no cough, GASTROINTESTINAL: No diarrhea, no nausea, no vomiting, no abdominal pain. NEUROLOGICAL: No headaches, no weakness, PHYSICAL EXAMINATION: GENERAL: The patient is alert and oriented x3, not in any acute distress. Well developed, well nourished. HEENT: Pupils are round and equally reacting to light. EOMI. No scleral icterus. No conjunctival pallor. Normocephalic, atraumatic. No pharyngeal erythema. No thyromegaly. CARDIOVASCULAR: S1 and S2 present. No murmurs, rubs, or gallops. PULMONARY: Chest is clear to auscultation, no wheezing or crackles. ABDOMEN: Soft, nontender, nondistended, normoactive bowel sounds. No palpable organomegaly. MUSCULOSKELETAL: No joint swelling or deformity. EXTREMITIES: No cyanosis, clubbing, or pedal edema. NEUROLOGICAL: Gross neurological examination did not reveal any focal deficits. SKIN: No rashes. Assessment and plan Generalized weakness secondary to suspected health care acquired pneumonia, possible diastolic congestive heart failure. Procalcitonin 0.20. ProBNP 528 MRSA bacteremia Cutaneous candidiasis Excoriation and wounds of the scrotal, groin area positive for methicillin-r esistant staph aureus, Klebsiella pneumoniae, Pseudomonas aeruginosa. Blood cultures pending Recent admission for pseudomonas aeruginosa pneumonia Recent admission for right knee septic arthritis requiring incision and drainage and wound VAC and weeks of IV antibiotics Paroxysmal atrial fibrillation anticoagulated with Eliquis Hypertension Hyperlipidemia Diabetes mellitus Chronic obstructive pulmonary disease BPH/urinary retention Dementia Monitor vital signs Monitor CBC Monitor CMP Continue fluconazole, meropenem and vancomycin ID following Patient medically stable for discharge Labs and medication were reviewed.. Continue same treatment. Continue with symptomatic treatment. Resume home medication. Monitor labs and vitals. DVT and GI prophylaxis. Further recommendations as per clinical course of the patient Objective - Vital Signs Vital signs: Vital Signs Temp 98.4 F 09/07/22 07:08 Pulse 86 09/07/22 12:20 Resp 18 09/07/22 10:06 BP 105/62 09/07/22 07:08 Pulse Ox 98 09/07/22 07:08 FiO2 Intake & Output 09/06/22 09/07/22 09/07/22 18:59 06:59 18:59 Intake Total 900 Balance 900 Intake: Intake, IV Titration 450 Amount Meropenem 1 gm In Sodium 200 Chloride 0.9% 100 ml @ 33 .3 mls/hr IVPB Q8HR MICHA Rx#:[id number] Vancomycin 1,250 mg In 250 Sodium Chloride 0.9% 250 ml @ 125 mls/hr IVPB Q24H MICHA Rx#:[id number] Oral 450 Other: Voiding Method Urinal Urinal Urinal Incontinent Incontinent Incontinent # Voids 5 3 # Bowel Movements 1 - Labs CBC & Chem 7: 09/06/22 06:56 09/07/22 04:42 Labs: Abnormal Lab Results - Last 24 Hours (Table) 09/06/22 09/06/22 09/07/22 Range/Units 16:08 20:14 04:42 Sodium 134 L (137-145) mmol/L BUN 23 H (9-20) mg/dL Glucose 126 H (74-99) mg/dL POC Glucose (mg/dL) 255 H 222 H (70-110) mg/dL 09/07/22 09/07/22 Range/Units 05:46 11:04 Sodium (137-145) mmol/L BUN (9-20) mg/dL Glucose (74-99) mg/dL POC Glucose (mg/dL) 163 H 223 H (70-110) mg/dL Microbiology - Last 24 Hours (Table) 09/01/22 08:14 Blood Culture - Final Blood
[2022-09-08] MEDS ORDERED: VANCOMYCIN 1,000 MG in SODIUM CHLORIDE 0.9% 250 ML IVPB SCH (08:00)
== END 2022-09-07 14:09 | DRG 871 ==
LOC: EC 13:03 → 4SSUR 15:24
PROVIDERS: ADMIT Hospitalist; ATTEND Hospitalist
PROC: 02HV33Z Insertion of Infusion Device into Superior Vena Cava, Percutaneous Approach (ICD-10-PCS; principal; 2022-09-06 10:35)
DX: A41.02 Sepsis due to Methicillin resistant Staphylococcus aureus (principal); J18.9 Pneumonia, unspecified organism; L03.314 Cellulitis of groin; K76.6 Portal hypertension; J44.0 Chronic obstructive pulmonary disease with (acute) lower respiratory infection; I50.32 Chronic diastolic (congestive) heart failure; N39.0 Urinary tract infection, site not specified; N47.1 Phimosis; I11.0 Hypertensive heart disease with heart failure; I48.0 Paroxysmal atrial fibrillation; N40.1 Benign prostatic hyperplasia with lower urinary tract symptoms; B95.62 Methicillin resistant Staphylococcus aureus infection as the cause of diseases classified elsewhere; N48.22 Cellulitis of corpus cavernosum and penis; L89.620 Pressure ulcer of left heel, unstageable; R32 Unspecified urinary incontinence; B37.2 Candidiasis of skin and nail; Y95 Nosocomial condition; B96.5 Pseudomonas (aeruginosa) (mallei) (pseudomallei) as the cause of diseases classified elsewhere; B96.1 Klebsiella pneumoniae [K. pneumoniae] as the cause of diseases classified elsewhere; R33.8 Other retention of urine; E78.5 Hyperlipidemia, unspecified; H91.90 Unspecified hearing loss, unspecified ear; F03.90 Unspecified dementia, unspecified severity, without behavioral disturbance, psychotic disturbance, mood disturbance, and anxiety; E11.9 Type 2 diabetes mellitus without complications; Z87.01 Personal history of pneumonia (recurrent); Z79.899 Other long term (current) drug therapy; Z79.51 Long term (current) use of inhaled steroids; Z79.01 Long term (current) use of anticoagulants; Z87.891 Personal history of nicotine dependence; Z88.5 Allergy status to narcotic agent; Z88.6 Allergy status to analgesic agent; Z71.3 Dietary counseling and surveillance
CPT/HCPCS: 36415; 36573; 71046; 74018; 80048; 80053; 80202; 81001; 82565; 83605; 83880; 84145; 84484; 85025; 85610; 85652; 85730; 86140; 87040; 87070; 87077; 87086; 87186; 87205; 93005; 94640; 96365; 96366; 99285

== ENCOUNTER → 2022-10-12 | Outpatient (CLI) | payer MEDICARE ==
--- NOTE | 2022-10-12 13:42 | XR ---
EXAMINATION TYPE: XR chest 2V DATE OF EXAM: 10/12/2022 COMPARISON: 08/29/2022 TECHNIQUE: PA and lateral views submitted. HISTORY: Shortness of breath FINDINGS: A bilateral consolidation and small effusion. There is no overt failure or pneumothorax. Atherosclero tic change aorta. Diffuse osteopenia and arthropathy of the AC joints. Hypertrophic changes of the sp ine. IMPRESSION: 1. Bilateral infiltrate and small pleural effusion.
== END | disposition home or self-care (01) ==
LOC: RADXRMAIN 13:16
PROVIDERS: ATTEND Internal Medicine Geriatric Medicine
DX: J90 Pleural effusion, not elsewhere classified (principal); R06.02 Shortness of breath
CPT/HCPCS: 71046

== ENCOUNTER 2022-12-16 07:44 | Inpatient (IN) | payer MEDICARE ==
[2022-12-16] MEDS ORDERED: ONDANSETRON 4 MG/2 ML VIAL IVP STA (08:16)
[2022-12-16] MEDS ORDERED: SODIUM CHLORIDE 0.9% 500 ML 500 ML IV STA ×2 (08:17→10:29)
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
[2022-12-16 09:20] LABS: Partial Thromboplastin Time 24.6 sec (22.0-30.0); Prothrombin Time 10.9 sec (10.0-12.5)
--- NOTE | 2022-12-16 09:25 | XR ---
EXAMINATION TYPE: XR chest 2V DATE OF EXAM: 12/16/2022 COMPARISON: 11/16/2022 TECHNIQUE: PA and lateral views submitted. HISTORY: Weakness FINDINGS: Bilateral consolidation and small pleural effusion. Diffuse osteopenia with arthropathy of the should ers. Heart size normal and no overt failure. Osseous structures demonstrate hypertrophic and degenera tive changes of the spine. IMPRESSION: 1. Bilateral lower lobe infiltrate and small effusion is stable. Mild venous congestion in the differ ential diagnosis.
[2022-12-16 09:27] LABS: Basophils % (A) 0 %; Eosinophils # (A) 0.1 k/uL (0-0.7); Eosinophils % (A) 1 %; HGB 14.5 gm/dL (13.0-17.5); Lymphocytes # (A) 0.9 k/uL (1.0-4.8); Lymphocytes % (A) 8 %; MCH 29.8 pg (25.0-35.0); MCHC 32.9 g/dL (31.0-37.0); MCV 90.5 fL (80.0-100.0); Mean Platelet Volume 8.6; Monocytes # (A) 0.7 k/uL (0-1.0); Monocytes % (A) 6 %; Neutrophils # (A) 9.9 k/uL (1.3-7.7); Neutrophils % (A) 85 %; Platelet Count 320 k/uL (150-450); RBC 4.87 m/uL (4.30-5.90); RDW 14.3 % (11.5-15.5); WBC 11.7 k/uL (3.8-10.6)
[2022-12-16] MEDS ORDERED: AZITHROMYCIN 500 MG in SODIUM CHLORIDE 0.9% 250 ML IVPB STA (11:08)
[2022-12-16 11:32] LABS: Appearance,Urine Cloudy (Clear); Bacteria,Urine Rare /hpf; Bilirubin,Urine Negative (Negative); Blood,Urine Large (Negative); Color,Urine Yellow; Glucose,Urine (UA) Negative (Negative); Ketones,Urine Negative (Negative); Leukocyte Esterase,Urine Large (Negative); Nitrite,Urine Positive (Negative); Protein,Urine 2+ (Negative); RBC,Urine 82 /hpf (0-5); Specific Gravity,Urine 1.019 (1.001-1.035); Squamous Epithelial Cell,Urine 1 /hpf (0-4); Urobilinogen,Urine <2.0 mg/dL (<2.0); WBC,Urine >182 /hpf (0-5)
[2022-12-16 11:57] LABS: ALT 31 U/L (4-49); AST 28 U/L (17-59); African American GFR (CKD) 58 (>60 ml/min/1.73 sqM); Alkaline Phosphatase 76 U/L (38-126); Anion Gap 8 mmol/L; Blood Urea Nitrogen 60 mg/dL (9-20); Calcium 10.4 mg/dL (8.4-10.2); Carbon Dioxide 31 mmol/L (22-30); Chloride 101 mmol/L (98-107); Glucose 169 mg/dL (74-99); Non-African American GFR(CKD) 50 (>60 ml/min/1.73 sqM); Potassium 3.8 mmol/L (3.5-5.1); Sodium 140 mmol/L (137-145); Total Bilirubin 0.5 mg/dL (0.2-1.3); Total Protein 5.7 g/dL (6.3-8.2)
[2022-12-16] MEDS ORDERED: SODIUM CHLORIDE 0.9% 1,000 ML IV STA (12:45)
[2022-12-16] MEDS ORDERED: NALOXONE 0.4 MG/ML 1 ML VIAL IV PRN (13:01)
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
[2022-12-16] MEDS ORDERED: CEFEPIME 2 GM in SODIUM CHLORIDE 0.9% 100 ML IVPB SCH ×2 (16:45→18:00)
[2022-12-16 20:29] LABS: Glucose,Whole Blood 234 mg/dL (70-110)
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
[2022-12-16] MEDS ORDERED: IPRATROPIUM-ALBUTEROL 3 ML NEB INHALATION PRN (23:11)
[2022-12-16] MEDS ORDERED: SENNOSIDES-DOCUSATE SODIUM 1 EACH TAB PO PRN (23:11)
[2022-12-16] MEDS ORDERED: traMADol 50 MG TAB PO PRN (23:11)
[2022-12-17] MEDS: CITALOPRAM HYDROBROMIDE 10 MG TAB PO SCH (00:44)
[2022-12-17] MEDS: ERGOCALCIFEROL 1,250 MCG (50,000 IU) CAPSULE PO SCH (00:44)
[2022-12-17 05:28] LABS: Glucose,Whole Blood 163 mg/dL (70-110)
[2022-12-17] MEDS: INSULIN ASPART (NovoLOG) 100 UNIT/ML VIAL SQ SCH ×4 (06:26→21:25)
[2022-12-17 07:57] LABS: HCT 36.3 % (39.0-53.0); MCH 30.1 pg (25.0-35.0); MCHC 33.1 g/dL (31.0-37.0); MCV 91.1 fL (80.0-100.0); Mean Platelet Volume 8.3; Platelet Count 303 k/uL (150-450); RBC 3.99 m/uL (4.30-5.90); RDW 14.2 % (11.5-15.5); WBC 9.6 k/uL (3.8-10.6)
[2022-12-17] MEDS ORDERED: BUDESONIDE 0.5 MG/2 ML NEBU INHALATION SCH (08:00)
[2022-12-17 08:09] LABS: Potassium 3.6 mmol/L (3.5-5.1)
[2022-12-17 08:10] LABS: ALT 33 U/L (4-49); AST 34 U/L (17-59); African American GFR (CKD) 72 (>60 ml/min/1.73 sqM); Albumin 2.5 g/dL (3.5-5.0); Alkaline Phosphatase 70 U/L (38-126); Anion Gap 4 mmol/L; Blood Urea Nitrogen 43 mg/dL (9-20); Calcium 9.6 mg/dL (8.4-10.2); Carbon Dioxide 28 mmol/L (22-30); Chloride 105 mmol/L (98-107); Globulin 2.6 g/dL; Glucose 151 mg/dL (74-99); Non-African American GFR(CKD) 63 (>60 ml/min/1.73 sqM); Sodium 137 mmol/L (137-145); Total Bilirubin 0.6 mg/dL (0.2-1.3); Total Protein 5.1 g/dL (6.3-8.2)
[2022-12-17] MEDS: FLUDROCORTISONE 0.1 MG TAB PO SCH (09:15)
[2022-12-17] MEDS: METOPROLOL SUCCINATE (ER) 25 MG TAB.ER.24H PO SCH ×2 (09:15→21:25)
[2022-12-17] MEDS: APIXABAN 5 MG TAB PO SCH ×2 (09:16→21:25)
[2022-12-17] MEDS: CEFEPIME 2 GM in SODIUM CHLORIDE 0.9% 100 ML IVPB SCH ×2 (09:16→21:26)
--- NOTE | 2022-12-17 10:18 | US ---
EXAMINATION TYPE: US kidneys/renal and bladder DATE OF EXAM: 12/17/2022 COMPARISON: CT 03/03/2022, US 07/13/2021 CLINICAL INDICATION: Male, 82 years old with history of uti and bacteremia; UTI and bacteremia. EXAM MEASUREMENTS: Right Kidney: 11.4 x 5.9 x 5.4 cm Left Kidney: 10.8 x 5.2 x 5.3 cm Right Kidney: #1=Septated anechoic area seen upper pole: 3.7 x 3.3 x 3.0 cm. #2=Anechoic area seen lateral/upper pole: 2.6 x 1.9 x 2.7 cm. #3=Septated anechoic area seen medial/upper pole: 2.2 x 2.4 x 1.8 cm. Left Kidney: Hyperechoic focus seen mid: 0.2 x 0.3 x 0.2 cm. Bladder: Limited evaluation. Unable to measure bladder wall accurately due to bladder not fully diste nded. Bilateral Jets seen: No, only Left jet was seen. Incidental finding- appearance of possible left pleural effusion in left kidney/spleen image. Compl ete evaluation not performed. IMPRESSION: 1. Heterogenous complex appearance of the kidneys with underlying cysts within the right kidney with septations and also some indeterminate lesions within the left kidney. There is nonobstructing left renal calculus. Consider MRI renal mass protocol for complete evaluation of the renal lesions Bladder wall thickening correlate for urinalysis for cystitis.
[2022-12-17 11:27] LABS: Glucose,Whole Blood 217 mg/dL (70-110)
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
--- NOTE | 2022-12-17 13:17 | P.PN ---
Subjective Progress Note Date: 12/17/22 patient is 82-year-old gentleman with past medical history significant for atrial fibrillation, hypertension, hyperlipidemia who presented to the ER for generalized weakness for the last 5 days. Patient caregiver is his , who stated the patient just completed 3 weeks of antibiotics for pneumonia. Patient noticed that this morning patient was much more weaker and lethargic. She notices the patient was cold at home. No documented fevers at home. No complaint of shortness of breath. Complaining of productive cough, phlegm is whitish in color. Patient follows up with wound care clinic for follow-up on left heel ulcer, is healing well. Because of generalized weakness and lethargy, patient was brought to the ER Initial lab work done in the ER showed WBC 7.7, hemoglobin 14.5, platelet count 320, sodium 140, potassium 3.8, BUN 60, creatinine 1.31, calcium 10.4 UA showed large amount of leukocyte esterase, WBC more than 182 Chest x-ray done in the ER showed bilateral lower lobe infiltrates and small effusions which were stable Patient admitted to medicine service 12/17. Patient seen and examined. Lab work done showed WBC 9.6, hemoglobin 12, platelet count 303, sodium 137, potassium 3.6, BUN 43, creatinine 1.09. Currently on room air, denies any cough. Denies any shortness of breath REVIEW OF SYSTEMS: CONSTITUTIONAL: No fever, no malaise,. CARDIOVASCULAR: No chest pain, no palpitations, no syncope. PULMONARY: No shortness of breath, no cough, GASTROINTESTINAL: No diarrhea, no nausea, no vomiting, no abdominal pain. NEUROLOGICAL: No headaches, no weakness, PHYSICAL EXAMINATION: GENERAL: The patient is alert and oriented x3, not in any acute distress. Well developed, well nourished. HEENT: Pupils are round and equally reacting to light. EOMI. No scleral icterus. No conjunctival pallor. Normocephalic, atraumatic. No pharyngeal erythema. No thyromegaly. CARDIOVASCULAR: S1 and S2 present. No murmurs, rubs, or gallops. PULMONARY: Diminished breath sounds at the bases bilaterally ABDOMEN: Soft, nontender, nondistended, normoactive bowel sounds. No palpable organomegaly. MUSCULOSKELETAL: No joint swelling or deformity. EXTREMITIES: 1+ pitting edema lower extremities bilaterally, left heel bandaged seen NEUROLOGICAL: Gross neurological examination did not reveal any focal deficits. SKIN: No rashes. Assessment and plan UTI Complex right renal cysts Persistent bilateral infiltrates, doubt pneumonia Generalized weakness Paroxysmal atrial fibrillation anticoagulated with Eliquis Hypertension Hyperlipidemia Diabetes mellitus Chronic obstructive pulmonary disease BPH/urinary retention Dementia Monitor vital signs Monitor CBC Monitor CMP Aggressive bronchopulmonary hygiene Continue IV cefepime Continue breathing treatments Follow-up on blood cultures Follow-up on urine cultures Ultrasound of kidneys done showed exogenous complex appearance of the kidneys with underlying sepsis Consult urology ID following Resume home meds Labs and medication were reviewed.. Continue same treatment. Continue with symptomatic treatment. Resume home medication. Monitor labs and vitals. DVT and GI prophylaxis. Further recommendations as per clinical course of the patient Dictation was produced using [email or web address] dictation software. please excuse any grammatical, word or spelling errors. Objective - Vital Signs Vital signs: Vital Signs Temp 98.0 F 12/17/22 07:31 Pulse 87 12/17/22 07:31 Resp 17 12/17/22 07:31 BP 120/74 12/17/22 07:31 Pulse Ox 94 L 12/17/22 07:31 FiO2 Intake & Output 12/16/22 12/17/22 12/17/22 18:59 06:59 18:59 Output Total 275 Balance -275 Weight 68.039 kg Output: Urine 275 - Labs CBC & Chem 7: 12/17/22 06:47 12/17/22 06:47 Labs: Abnormal Lab Results - Last 24 Hours (Table) 12/16/22 12/16/22 12/16/22 Range/Units 10:58 11:10 11:40 RBC (4.30-5.90) m/uL Hgb (13.0-17.5) gm/dL Hct (39.0-53.0) % Carbon Dioxide 31 H (22-30) mmol/L BUN 60 H (9-20) mg/dL Creatinine 1.31 H (0.66-1.25) mg/dL Glucose 169 H (74-99) mg/dL POC Glucose (mg/dL) (70-110) mg/dL Calcium 10.4 H (8.4-10.2) mg/dL Total Protein 5.7 L (6.3-8.2) g/dL Albumin 3.0 L (3.5-5.0) g/dL Procalcitonin 0.16 H (0.02-0.09) ng/mL Urine Protein 2+ H (Negative) Urine Blood Large H (Negative) Ur Leukocyte Esterase Large H (Negative) Urine RBC 82 H (0-5) /hpf Urine WBC >182 H (0-5) /hpf Urine WBC Clumps Few H (None) /hpf Urine Bacteria Rare H (None) /hpf 12/16/22 12/17/22 12/17/22 Range/Units 20:28 05:27 06:47 RBC 3.99 L (4.30-5.90) m/uL Hgb 12.0 L (13.0-17.5) gm/dL Hct 36.3 L (39.0-53.0) % Carbon Dioxide (22-30) mmol/L BUN (9-20) mg/dL Creatinine (0.66-1.25) mg/dL Glucose (74-99) mg/dL POC Glucose (mg/dL) 234 H 163 H (70-110) mg/dL Calcium (8.4-10.2) mg/dL Total Protein (6.3-8.2) g/dL Albumin (3.5-5.0) g/dL Procalcitonin (0.02-0.09) ng/mL Urine Protein (Negative) Urine Blood (Negative) Ur Leukocyte Esterase (Negative) Urine RBC (0-5) /hpf Urine WBC (0-5) /hpf Urine WBC Clumps (None) /hpf Urine Bacteria (None) /hpf 12/17/22 Range/Units 06:47 RBC (4.30-5.90) m/uL Hgb (13.0-17.5) gm/dL Hct (39.0-53.0) % Carbon Dioxide (22-30) mmol/L BUN 43 H (9-20) mg/dL Creatinine (0.66-1.25) mg/dL Glucose 151 H (74-99) mg/dL POC Glucose (mg/dL) (70-110) mg/dL Calcium (8.4-10.2) mg/dL Total Protein 5.1 L (6.3-8.2) g/dL Albumin 2.5 L (3.5-5.0) g/dL Procalcitonin (0.02-0.09) ng/mL Urine Protein (Negative) Urine Blood (Negative) Ur Leukocyte Esterase (Negative) Urine RBC (0-5) /hpf Urine WBC (0-5) /hpf Urine WBC Clumps (None) /hpf Urine Bacteria (None) /hpf
[2022-12-17] MEDS: NYSTATIN 100,000 UNIT/GM POWD 15 GM TOPICAL SCH (15:16)
[2022-12-17 16:29] LABS: Glucose,Whole Blood 124 mg/dL (70-110)
[2022-12-17 17:44] VITALS: BMI 20.3
[2022-12-17 18:53] LABS: Glucose,Whole Blood 216 mg/dL (70-110)
[2022-12-17] MEDS: MIRTAZAPINE 15 MG TAB PO SCH (21:25)
[2022-12-17] MEDS: ATORVASTATIN 20 MG TAB PO SCH (21:25)
[2022-12-17] MEDS: MONTELUKAST 10 MG TAB PO SCH (21:25)
[2022-12-17] MEDS: RIVASTIGMINE TARTRATE 3 MG PO SCH (21:26)
--- NOTE | 2022-12-17 22:28 | P.PN ---
Subjective Progress Note Date: 12/17/22 Principal diagnosis: UTI Patient is a 82-year-old male with multiple comorbidities in this patient who recently was admitted to the hospital did have extensive cellulitis of the pelvic area and culture positive for MRSA and Pseudomonas, Presenting to hospital with weakness and has been diagnosed with UTI On todays evaluation that is 12/17/2022, the patient denies any fever or any chills, the patient is breathing comfortably on room air , the patient denies chest pain, shortness of breath and no significant cough, patient denies abdominal pain, no nausea/vomiting or diarrhea WBC normalized to 9.6 , Cr 1.09 , urine cultures with gram negative bacilli Objective - Vital Signs Vital signs: Vital Signs Temp 98.0 F 12/17/22 07:31 Pulse 87 12/17/22 07:31 Resp 17 12/17/22 07:31 BP 120/74 12/17/22 07:31 Pulse Ox 94 L 12/17/22 07:31 FiO2 Intake & Output 12/16/22 12/17/22 12/17/22 18:59 06:59 18:59 Output Total 275 Balance -275 Weight 68.039 kg Output: Urine 275 - Exam GENERAL DESCRIPTION: An elderly male lying in bed in no distress RESPIRATORY SYSTEM: Unlabored breathing , decreased breath sounds at bases HEART: S1 S2 regular rate and rhythm , ABDOMEN: Soft , no tenderness EXTREMITIES: No edema feet - Labs CBC & Chem 7: 12/17/22 06:47 12/17/22 06:47 Labs: Abnormal Lab Results - Last 24 Hours (Table) 12/16/22 12/16/22 12/17/22 Range/Units 11:40 20:28 05:27 RBC (4.30-5.90) m/uL Hgb (13.0-17.5) gm/dL Hct (39.0-53.0) % BUN (9-20) mg/dL Glucose (74-99) mg/dL POC Glucose (mg/dL) 234 H 163 H (70-110) mg/dL Total Protein (6.3-8.2) g/dL Albumin (3.5-5.0) g/dL Procalcitonin 0.16 H (0.02-0.09) ng/mL 10/21/23 10/21/23 10/21/23 Range/Units 06:47 06:47 11:26 RBC 3.99 L (4.30-5.90) m/uL Hgb 12.0 L (13.0-17.5) gm/dL Hct 36.3 L (39.0-53.0) % BUN 43 H (9-20) mg/dL Glucose 151 H (74-99) mg/dL POC Glucose (mg/dL) 217 H (70-110) mg/dL Total Protein 5.1 L (6.3-8.2) g/dL Albumin 2.5 L (3.5-5.0) g/dL Procalcitonin (0.02-0.09) ng/mL Assessment and Plan (1) UTI (urinary tract infection) Current Visit: Yes Status: Acute Code(s): N39.0 - URINARY TRACT INFECTION, SITE NOT SPECIFIED SNOMED Code(s): 07120781 Plan: 1patient presented to the hospital with weakness not feeling well recently completed course of antibiotic for UTI as well as pneumonia patient did have urinary symptom positive and likely concerning for symptomatic urinary tract infection in this patient has previously grown Pseudomonas we will need to cover for resistant gram-negative pathogen clinically doubt pneumonia as he did not have significant respiratory symptoms and is not requiring any supplemental oxygen 2-we will continue the patient cefepime 2 g every 8 hours while waiting for the culture to finalize 3- ultrasound of the kidneys , shows abnormality of the left kidney and radiologist is recommending MRI Dictation was produced using [employer] dictation software. please excuse any grammatical, word or spelling errors. Time with Patient: Less than 30
[2022-12-18 05:47] LABS: Glucose,Whole Blood 227 mg/dL (70-110)
[2022-12-18] MEDS: INSULIN ASPART (NovoLOG) 100 UNIT/ML VIAL SQ SCH ×4 (06:31→20:47)
[2022-12-18] MEDS: CEFEPIME 2 GM in SODIUM CHLORIDE 0.9% 100 ML IVPB SCH ×2 (08:19→20:47)
[2022-12-18] MEDS: RIVASTIGMINE TARTRATE 3 MG PO SCH ×2 (08:19→20:47)
[2022-12-18] MEDS: NYSTATIN 100,000 UNIT/GM POWD 15 GM TOPICAL SCH (08:19)
[2022-12-18] MEDS: FLUDROCORTISONE 0.1 MG TAB PO SCH (08:20)
[2022-12-18] MEDS: APIXABAN 5 MG TAB PO SCH ×2 (08:20→20:47)
[2022-12-18] MEDS: METOPROLOL SUCCINATE (ER) 25 MG TAB.ER.24H PO SCH ×2 (08:20→20:47)
[2022-12-18] MEDS: CITALOPRAM HYDROBROMIDE 10 MG TAB PO SCH (08:21)
--- NOTE | 2022-12-18 10:22 | US ---
EXAMINATION TYPE: US chest DATE OF EXAM: 12/18/2022 COMPARISON: CXR CLINICAL INDICATION: Male, 82 years old with history of Bilateral pleural effusions; Effusion TECHNIQUE: Targeted ultrasound of the posterior lower bilateral hemithoraces EXAM MEASUREMENTS: Right Pleural Effusion pocket size: 13.9 cm Right skin surface to fluid distance: 4.4 cm Left Pleural Effusion pocket size: 9.2 cm Left skin surface to fluid distance: 2.9 cm Right side marked for possible thoracentesis outside the dept. Left side marked for possible thoracentesis outside the dept. Pulmonologists are able to review the images in the patient?s EMR. IMPRESSIONS: Large bilateral pleural effusions.
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
[2022-12-18 11:28] LABS: Glucose,Whole Blood 224 mg/dL (70-110)
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
--- NOTE | 2022-12-18 12:41 | P.PN ---
Subjective Progress Note Date: 12/18/22 patient is 82-year-old gentleman with past medical history significant for atrial fibrillation, hypertension, hyperlipidemia who presented to the ER for generalized weakness for the last 5 days. Patient caregiver is his , who stated the patient just completed 3 weeks of antibiotics for pneumonia. Patient noticed that this morning patient was much more weaker and lethargic. She notices the patient was cold at home. No documented fevers at home. No complaint of shortness of breath. Complaining of productive cough, phlegm is whitish in color. Patient follows up with wound care clinic for follow-up on left heel ulcer, is healing well. Because of generalized weakness and lethargy, patient was brought to the ER Initial lab work done in the ER showed WBC 7.7, hemoglobin 14.5, platelet count 320, sodium 140, potassium 3.8, BUN 60, creatinine 1.31, calcium 10.4 UA showed large amount of leukocyte esterase, WBC more than 182 Chest x-ray done in the ER showed bilateral lower lobe infiltrates and small effusions which were stable Patient admitted to medicine service 12/17. Patient seen and examined. Lab work done showed WBC 9.6, hemoglobin 12, platelet count 303, sodium 137, potassium 3.6, BUN 43, creatinine 1.09. Currently on room air, denies any cough. Denies any shortness of breath 12/18. Patient seen and examined. Ultrasound chest order for bilateral pleural effusions, pulmonology will consider thoracentesis if significant REVIEW OF SYSTEMS: CONSTITUTIONAL: No fever, no malaise,. CARDIOVASCULAR: No chest pain, no palpitations, no syncope. PULMONARY: No shortness of breath, no cough, GASTROINTESTINAL: No diarrhea, no nausea, no vomiting, no abdominal pain. NEUROLOGICAL: No headaches, no weakness, PHYSICAL EXAMINATION: GENERAL: The patient is alert and oriented x3, not in any acute distress. Well developed, well nourished. HEENT: Pupils are round and equally reacting to light. EOMI. No scleral icterus. No conjunctival pallor. Normocephalic, atraumatic. No pharyngeal erythema. No thyromegaly. CARDIOVASCULAR: S1 and S2 present. No murmurs, rubs, or gallops. PULMONARY: Diminished breath sounds at the bases bilaterally ABDOMEN: Soft, nontender, nondistended, normoactive bowel sounds. No palpable organomegaly. MUSCULOSKELETAL: No joint swelling or deformity. EXTREMITIES: 1+ pitting edema lower extremities bilaterally, left heel bandaged seen NEUROLOGICAL: Gross neurological examination did not reveal any focal deficits. SKIN: No rashes. Assessment and plan UTI Complex right renal cysts Persistent bilateral infiltrates, doubt pneumonia Generalized weakness Paroxysmal atrial fibrillation anticoagulated with Eliquis Hypertension Hyperlipidemia Diabetes mellitus Chronic obstructive pulmonary disease BPH/urinary retention Dementia Monitor vital signs Monitor CBC Monitor CMP Aggressive bronchopulmonary hygiene Continue IV cefepime Continue breathing treatments Follow-up on blood cultures Follow-up on urine cultures Ultrasound of kidneys done showed exogenous complex appearance of the kidneys with underlying sepsis Ultrasound chest order for bilateral pleural effusions Consult urology ID following Pulmonary following Labs and medication were reviewed.. Continue same treatment. Continue with symptomatic treatment. Resume home medication. Monitor labs and vitals. DVT a nd GI prophylaxis. Further recommendations as per clinical course of the patient Dictation was produced using [employer] dictation software. please excuse any grammatical, word or spelling errors. Objective - Vital Signs Vital signs: Vital Signs Temp 97.8 F 12/18/22 06:42 Pulse 99 12/18/22 06:42 Resp 19 12/18/22 06:42 BP 152/85 12/18/22 06:42 Pulse Ox 96 12/18/22 06:42 FiO2 Intake & Output 12/17/22 12/18/22 12/18/22 18:59 06:59 18:59 Output Total 300 Balance -300 Weight 68.039 kg Output: Urine 300 Other: Voiding Method Toilet Toilet Urinal Urinal # Voids 250 1 - Labs CBC & Chem 7: 12/17/22 06:47 12/17/22 06:47 Labs: Abnormal Lab Results - Last 24 Hours (Table) 12/17/22 12/17/22 12/17/22 Range/Units 11:26 16:27 18:52 POC Glucose (mg/dL) 217 H 124 H 216 H (70-110) mg/dL 12/18/22 Range/Units 05:46 POC Glucose (mg/dL) 227 H (70-110) mg/dL Microbiology - Last 24 Hours (Table) 12/16/22 11:10 Urine Culture - Preliminary Urine,Voided Gram Neg Bacilli 12/16/22 12:20 Blood Culture - Preliminary Blood 12/16/22 12:35 Blood Culture - Preliminary Blood
--- NOTE | 2022-12-18 15:00 | P.PN ---
Subjective Progress Note Date: 12/18/22 Principal diagnosis: UTI Patient is a 82-year-old male with multiple comorbidities in this patient who recently was admitted to the hospital did have extensive cellulitis of the pelvic area and culture positive for MRSA and Pseudomonas, Presenting to hospital with weakness and has been diagnosed with UTI On todays evaluation that is 12/18/2022, the patient remains to be afebrile, the patient is breathing comfortably on room air without the need for supplemental oxygen , the patient denies chest pain or cough, patient denies nausea/vomiting or diarrhea and denies any abdominal pain WBC normalized to 9.6 , Cr 1.09 as of 12/17/2022, urine cultures with gram negative bacilli ID sensitivity pending Objective - Vital Signs Vital signs: Vital Signs Temp 97.6 F 12/18/22 13:05 Pulse 79 12/18/22 13:05 Resp 20 12/18/22 13:05 BP 112/79 12/18/22 13:05 Pulse Ox 98 12/18/22 13:05 FiO2 Intake & Output 12/17/22 12/18/22 12/18/22 18:59 06:59 18:59 Output Total 300 Balance -300 Weight 68.039 kg Output: Urine 300 Other: Voiding Method Toilet Toilet Toilet Urinal Urinal Urinal # Voids 250 1 - Exam GENERAL DESCRIPTION: An elderly male lying in bed in no distress RESPIRATORY SYSTEM: Unlabored breathing , decreased breath sounds at bases HEART: S1 S2 regular rate and rhythm , ABDOMEN: Soft , no tenderness EXTREMITIES: No edema feet - Labs CBC & Chem 7: 12/17/22 06:47 12/17/22 06:47 Labs: Abnormal Lab Results - Last 24 Hours (Table) 12/17/22 12/17/22 12/18/22 Range/Units 16:27 18:52 05:46 POC Glucose (mg/dL) 124 H 216 H 227 H (70-110) mg/dL 12/18/22 Range/Units 11:25 POC Glucose (mg/dL) 224 H (70-110) mg/dL Microbiology - Last 24 Hours (Table) 12/16/22 11:10 Urine Culture - Preliminary Urine,Voided Gram Neg Bacilli 12/16/22 12:20 Blood Culture - Preliminary Blood 12/16/22 12:35 Blood Culture - Preliminary Blood Assessment and Plan (1) UTI (urinary tract infection) Current Visit: Yes Status: Acute Code(s): N39.0 - URINARY TRACT INFECTION, SITE NOT SPECIFIED SNOMED Code(s): 27118569 Plan: 1patient presented to the hospital with weakness not feeling well recently completed course of antibiotic for UTI as well as pneumonia patient did have urinary symptom positive and likely concerning for symptomatic urinary tract infection in this patient has previously grown Pseudomonas we will need to cover for resistant gram-negative pathogen clinically doubt pneumonia as he did not have significant respiratory symptoms and is not requiring any supplemental oxyg en 2-ultrasound of the kidneys , shows abnormality of the left kidney , patient has been evaluated by urology and possible benign cyst for the documentation 3-we will continue the patient cefepime 2 g every 8 hours while waiting for the culture to finalize at the bedside questions were answered Dictation was produced using [employer] dictation software. please excuse any grammatical, word or spelling errors. Time with Patient: Less than 30
[2022-12-18 16:35] LABS: Glucose,Whole Blood 146 mg/dL (70-110)
[2022-12-18] MEDS: LORazepam 0.5 MG TAB PO PRN ×2 (17:45→23:38)
[2022-12-18 19:32] LABS: Glucose,Whole Blood 201 mg/dL (70-110)
[2022-12-18] MEDS: MIRTAZAPINE 15 MG TAB PO SCH (20:47)
[2022-12-18] MEDS: ATORVASTATIN 20 MG TAB PO SCH (20:47)
[2022-12-18] MEDS: MONTELUKAST 10 MG TAB PO SCH (20:47)
[2022-12-19 05:26] LABS: Glucose,Whole Blood 172 mg/dL (70-110)
[2022-12-19] MEDS: INSULIN ASPART (NovoLOG) 100 UNIT/ML VIAL SQ SCH ×4 (06:37→21:21)
[2022-12-19] MEDS: CEFEPIME 2 GM in SODIUM CHLORIDE 0.9% 100 ML IVPB SCH (09:12)
[2022-12-19] MEDS: RIVASTIGMINE TARTRATE 3 MG PO SCH ×2 (09:13→21:21)
[2022-12-19] MEDS: APIXABAN 5 MG TAB PO SCH ×2 (09:14→21:20)
[2022-12-19] MEDS: METOPROLOL SUCCINATE (ER) 25 MG TAB.ER.24H PO SCH ×2 (09:14→21:21)
[2022-12-19] MEDS: FLUDROCORTISONE 0.1 MG TAB PO SCH (09:14)
[2022-12-19] MEDS: NYSTATIN 100,000 UNIT/GM POWD 15 GM TOPICAL SCH (09:14)
[2022-12-19 11:01] LABS: HCT 37.8 % (39.6-50.0); HGB 12.1 d/dL (13.0-17.0); MCH 29.3 pg (27.0-32.0); MCV 91.5 FL (80.0-97.0); Mean Platelet Volume 11.2 FL (9.5-12.2); Platelet Count 342 X 10*3/uL (140-440); RBC 4.13 X 10*6/uL (4.40-5.60); RDW 14.4 % (11.5-14.5); WBC 8.76 X 10*3/uL (4.50-10.00)
[2022-12-19 11:02] LABS: NRBC Per 100 WBC 0 X 10*3/uL (0.00-0.01)
[2022-12-19 11:09] LABS: ALT 59 U/L (10-49); AST 53 U/L (14-35); Alkaline Phosphatase 83 U/L (41-126); Blood Urea Nitrogen 28.7 mg/dL (9.0-27.0); Calcium 10.1 mg/dL (8.7-10.3); Carbon Dioxide 26.1 mmol/L (21.6-31.8); Chloride 105 mmol/L (96-109); Globulin 2.3 d/dL (1.6-3.3); Glucose 175 mg/dL (70-110); Potassium 4.3 mmol/L (3.5-5.5); Sodium 139 mmol/L (135-145); Total Bilirubin <0.2 mg/dL (0.3-1.2); Total Protein 5.3 d/dL (6.2-8.2)
[2022-12-19 11:22] LABS: Glucose,Whole Blood 185 mg/dL (70-110)
[2022-12-19] MEDS: SPIRONOLACTONE 25 MG TAB PO SCH (12:32)
[2022-12-19] MEDS: FUROSEMIDE 40 MG TAB PO SCH (12:32)
[2022-12-19] MEDS: IPRATROPIUM-ALBUTEROL 3 ML NEB INHALATION SCH ×3 (12:40→21:18)
--- NOTE | 2022-12-19 13:42 | P.PN ---
Subjective Progress Note Date: 12/19/22 patient is 82-year-old gentleman with past medical history significant for atrial fibrillation, hypertension, hyperlipidemia who presented to the ER for generalized weakness for the last 5 days. Patient caregiver is his , who stated the patient just completed 3 weeks of antibiotics for pneumonia. Patient noticed that this morning patient was much more weaker and lethargic. She notices the patient was cold at home. No documented fevers at home. No complaint of shortness of breath. Complaining of productive cough, phlegm is whitish in color. Patient follows up with wound care clinic for follow-up on left heel ulcer, is healing well. Because of generalized weakness and lethargy, patient was brought to the ER Initial lab work done in the ER showed WBC 7.7, hemoglobin 14.5, platelet count 320, sodium 140, potassium 3.8, BUN 60, creatinine 1.31, calcium 10.4 UA showed large amount of leukocyte esterase, WBC more than 182 Chest x-ray done in the ER showed bilateral lower lobe infiltrates and small effusions which were stable Patient admitted to medicine service 12/17. Patient seen and examined. Lab work done showed WBC 9.6, hemoglobin 12, platelet count 303, sodium 137, potassium 3.6, BUN 43, creatinine 1.09. Currently on room air, denies any cough. Denies any shortness of breath 12/18. Patient seen and examined. Ultrasound chest order for bilateral pleural effusions, pulmonology will consider thoracentesis if significant 12/19/22: Patient seen and evaluated bedside, at bedside as well overnight patient was delirious, plan discussed, continue to monitor, CBC and basic metabolic panel reviewed PHYSICAL EXAMINATION: GENERAL: The patient is alert and oriented x 2, . Well developed, well nourished. HEENT: Pupils are round and equally reacting to light. EOMI. . CARDIOVASCULAR: S1 and S2 present. No murmurs, rubs, or gallops. PULMONARY: Diminished breath sounds at the bases bilaterally ABDOMEN: Soft, nontender, nondistended, normoactive bowel sounds. No palpable organomegaly. MUSCULOSKELETAL: No joint swelling or deformity. EXTREMITIES: 1+ pitting edema lower extremities bilaterally, left heel bandaged seen NEUROLOGICAL: Gross neurological examination did not reveal any focal deficits. Patient had episode of delirium overnight slow to respond Objective - Vital Signs Vital signs: Vital Signs Temp 97.9 F 12/19/22 12:38 Pulse 78 12/19/22 13:12 Resp 20 12/19/22 12:38 BP 119/85 12/19/22 12:38 Pulse Ox 90 L 12/19/22 12:38 FiO2 Intake & Output 12/18/22 12/19/22 12/19/22 18:59 06:59 18:59 Other: Voiding Method Toilet Toilet Diaper Urinal Urinal Diaper # Voids 4 1 1 # Bowel Movements 1 - Labs CBC & Chem 7: 12/19/22 06:56 12/19/22 06:56 Labs: Abnormal Lab Results - Last 24 Hours (Table) 12/18/22 12/18/22 12/19/22 Range/Units 16:32 19:31 05:25 RBC (4.40-5.60) X 10*6/uL Hgb (13.0-17.0) d/dL Hct (39.6-50.0) % BUN (9.0-27.0) mg/dL BUN/Creatinine Ratio (12.00-20.00) Ratio Glucose (70-110) mg/dL POC Glucose (mg/dL) 146 H 201 H 172 H (70-110) mg/dL Total Bilirubin (0.3-1.2) mg/dL AST (14-35) U/L ALT (10-49) U/L Total Protein (6.2-8.2) d/dL Albumin (3.8-4.9) d/dL Albumin/Globulin Ratio (1.60-3.17) Ratio 12/19/22 12/19/22 12/19/22 Range/Units 06:56 06:56 11:19 RBC 4.13 L (4.40-5.60) X 10*6/uL Hgb 12.1 L (13.0-17.0) d/dL Hct 37.8 L (39.6-50.0) % BUN 28.7 H (9.0-27.0) mg/dL BUN/Creatinine Ratio 28.70 H (12.00-20.00) Ratio Glucose 175 H (70-110) mg/dL POC Glucose (mg/dL) 185 H (70-110) mg/dL Total Bilirubin <0.2 L (0.3-1.2) mg/dL AST 53 H (14-35) U/L ALT 59 H (10-49) U/L Total Protein 5.3 L (6.2-8.2) d/dL Albumin 3.0 L (3.8-4.9) d/dL Albumin/Globulin Ratio 1.30 L (1.60-3.17) Ratio Microbiology - Last 24 Hours (Table) 12/16/22 11:10 Urine Culture - Final Urine,Voided Proteus mirabilis 12/16/22 12:20 Blood Culture - Preliminary Blood 12/16/22 12:35 Blood Culture - Preliminary Blood Assessment and Plan Assessment: Assessment and plan UTI Acute metabolic encephalopathy with delirium Complex right renal cysts Bilateral pleural effusion Generalized weakness Paroxysmal atrial fibrillation anticoagulated with Eliquis Hypertension Hyperlipidemia Diabetes mellitus Chronic obstructive pulmonary disease BPH/urinary retention Dementia Monitor vital signs Monitor CBC Monitor CMP Aggressive bronchopulmonary hygiene Continue IV cefepime Continue breathing treatments Follow-up on blood cultures Follow-up on urine cultures grew Proteus mirabilis Ultrasound of kidneys done showed exogenous complex appearance of the kidneys with underlying sepsis Ultrasound chest order for bilateral pleural effusions, we will defer thoracentesis to pulmonary medicine Consult urology ID following Pulmonary following
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
--- NOTE | 2022-12-19 15:37 | CT ---
EXAMINATION TYPE: CT brain wo con CT DLP: 1081.4 mGycm, Automated exposure control for dose reduction was used. DATE OF EXAM: 12/19/2022 3:25 PM COMPARISON: None. CLINICAL INDICATION:Male, 82 years old with history of fall, weakness, fall TECHNIQUE: Brain: Multiple axial CT images of the brain were obtained without IV contrast. Coronal and sagittal reformats reviewed. FINDINGS: Brain: Extra-axial spaces: No abnormal extra-axial fluid collections. Ventricular system: Within normal limits Cerebral parenchyma: Cerebral atrophy. No acute intraparenchymal hemorrhage or mass effect. The manning -white junction is well differentiated. Scattered hypoattenuating areas are seen within the white mat ter. Cerebellum: Unremarkable. Mass effect: No evidence of midline shift. Intracranial vasculature: Atherosclerotic calcifications of the intracranial vessels. Soft tissues: Normal. Calvarium/osseous structures: No depressed skull fracture. Paranasal sinuses and mastoid air cells: Moderate scattered paranasal sinus disease. Visualized orbits: Bilateral aphakia IMPRESSION: 1. No acute intracranial process. 2. Nonspecific white matter changes, likely secondary to chronic small vessel ischemic disease. 3. Moderate paranasal sinus disease.
--- NOTE | 2022-12-19 16:01 | XR ---
EXAMINATION TYPE: XR shoulder complete BILAT DATE OF EXAM: 12/19/2022 3:46 PM CLINICAL INDICATION:Male, 82 years old with history of fall; H COMPARISON: None TECHNIQUE: XR shoulder complete BILAT; shoulder was examined in AP, internally rotated and scapular Y projections. FINDINGS: No evidence of acute osseous pathology, joint dislocation, or soft tissue swelling. The remaining por tions of the visualized chest are unremarkable. Mild degeneration changes of the acromion and distal clavicle bilaterally. IMPRESSION: 1. No acute osseous pathology. 2. Mild bilateral shoulder osteoarthrosis.
--- NOTE | 2022-12-19 16:02 | XR ---
EXAMINATION TYPE: XR elbow complete RT DATE OF EXAM: 12/19/2022 3:47 PM CLINICAL INDICATION:Male, 82 years old with history of fall; [facility] COMPARISON: None TECHNIQUE: The right elbow was examined in AP, lateral, and oblique projections. FINDINGS: No evidence of any acute osseous pathology, joint dislocation, or soft tissue swelling is n oted. No evidence of joint effusion is present. IMPRESSION: No evidence of acute fracture.
--- NOTE | 2022-12-19 16:03 | XR ---
EXAMINATION TYPE: XR cervical spine limited DATE OF EXAM: 12/19/2022 3:47 PM CLINICAL INDICATION:Male, 82 years old with history of fall; COMPARISON: 07/27/2018 TECHNIQUE: The cervical spine was imaged in frontal, lateral, and odontoid. FINDINGS: The osseous structures show normal alignment without evidence of an acute fracture. There are osteoph ytes noted throughout the cervical spine on the anterior and lateral aspects of the vertebral bodies. The intervertebral disk spaces are narrowed at multiple levels Pedicles are intact. Soft tissues ar e within normal limits. The odontoid appears intact. IMPRESSION: 1. No fracture or dislocation. 2. Moderate to severe degenerative disc disease changes of the cervical spine. Mildly worsened from p rior in 2019.
[2022-12-19 16:33] LABS: Glucose,Whole Blood 245 mg/dL (70-110)
[2022-12-19] MEDS ORDERED: OLANZapine 10 MG VIAL IM PRN (19:14)
[2022-12-19 20:37] LABS: Glucose,Whole Blood 231 mg/dL (70-110)
[2022-12-19] MEDS ORDERED: MELATONIN 3 MG TABLET PO SCH (21:00)
[2022-12-19] MEDS: MONTELUKAST 10 MG TAB PO SCH (21:21)
[2022-12-19] MEDS: ATORVASTATIN 20 MG TAB PO SCH (21:21)
[2022-12-19] MEDS: MIRTAZAPINE 15 MG TAB PO SCH (21:21)
[2022-12-20 06:06] LABS: Glucose,Whole Blood 202 mg/dL (70-110)
[2022-12-20] MEDS: INSULIN ASPART (NovoLOG) 100 UNIT/ML VIAL SQ SCH ×4 (06:42→20:58)
[2022-12-20] MEDS: IPRATROPIUM-ALBUTEROL 3 ML NEB INHALATION SCH ×3 (09:02→20:08)
--- NOTE | 2022-12-20 09:30 | XR ---
EXAMINATION TYPE: XR chest 1V portable DATE OF EXAM: 12/20/2022 8:22 AM CLINICAL INDICATION:Male, 82 years old with history of fluid; [facility] COMPARISON: Chest radiographs from 12/16/2022 TECHNIQUE: XR chest 1V portable Frontal view of the chest. FINDINGS: Lungs/Pleura: No evidence of focal consolidation or pneumothorax. Blunting of the costophrenic angles is present. Pulmonary vascularity: Unremarkable. Heart/mediastinum: Cardiomediastinal silhouette is enlarged and stable. Musculoskeletal: No acute osseous pathology. IMPRESSION: Cardiomegaly, pulmonary vascular congestion and bilateral pleural effusions. Correlate with BNP for c ongestive heart failure.
[2022-12-20] MEDS: RIVASTIGMINE TARTRATE 3 MG PO SCH ×2 (10:20→20:56)
[2022-12-20] MEDS: SPIRONOLACTONE 25 MG TAB PO SCH (10:21)
[2022-12-20] MEDS: FUROSEMIDE 40 MG TAB PO SCH (10:22)
[2022-12-20] MEDS: APIXABAN 5 MG TAB PO SCH (10:22)
[2022-12-20] MEDS: FLUDROCORTISONE 0.1 MG TAB PO SCH (10:23)
[2022-12-20] MEDS: METOPROLOL SUCCINATE (ER) 25 MG TAB.ER.24H PO SCH ×2 (10:24→20:57)
[2022-12-20] MEDS: NYSTATIN 100,000 UNIT/GM POWD 15 GM TOPICAL SCH (10:33)
[2022-12-20 11:25] LABS: HCT 38.7 % (39.0-53.0); HGB 12.4 gm/dL (13.0-17.5); MCH 29.9 pg (25.0-35.0); MCV 93.4 fL (80.0-100.0); Mean Platelet Volume 7.9; Platelet Count 297 k/uL (150-450); RBC 4.15 m/uL (4.30-5.90); RDW 14.2 % (11.5-15.5); WBC 8.7 k/uL (3.8-10.6)
[2022-12-20 11:27] LABS: Glucose,Whole Blood 217 mg/dL (70-110)
[2022-12-20 11:42] LABS: African American GFR (CKD) 89 (>60 ml/min/1.73 sqM); Anion Gap 8 mmol/L; Blood Urea Nitrogen 31 mg/dL (9-20); C Reactive Protein 2.9 mg/dL (<1.0); Calcium 9.9 mg/dL (8.4-10.2); Carbon Dioxide 23 mmol/L (22-30); Chloride 107 mmol/L (98-107); Glucose 220 mg/dL (74-99); Non-African American GFR(CKD) 77 (>60 ml/min/1.73 sqM); Sodium 138 mmol/L (137-145)
[2022-12-20 11:44] LABS: Potassium 4.4 mmol/L (3.5-5.1)
--- NOTE | 2022-12-20 12:02 | P.PN ---
Subjective Progress Note Date: 12/20/22 patient is 82-year-old gentleman with past medical history significant for atrial fibrillation, hypertension, hyperlipidemia who presented to the ER for generalized weakness for the last 5 days. Patient caregiver is his , who stated the patient just completed 3 weeks of antibiotics for pneumonia. Patient noticed that this morning patient was much more weaker and lethargic. She notices the patient was cold at home. No documented fevers at home. No complaint of shortness of breath. Complaining of productive cough, phlegm is whitish in color. Patient follows up with wound care clinic for follow-up on left heel ulcer, is healing well. Because of generalized weakness and lethargy, patient was brought to the ER Initial lab work done in the ER showed WBC 7.7, hemoglobin 14.5, platelet count 320, sodium 140, potassium 3.8, BUN 60, creatinine 1.31, calcium 10.4 UA showed large amount of leukocyte esterase, WBC more than 182 Chest x-ray done in the ER showed bilateral lower lobe infiltrates and small effusions which were stable Patient admitted to medicine service 12/17. Patient seen and examined. Lab work done showed WBC 9.6, hemoglobin 12, platelet count 303, sodium 137, potassium 3.6, BUN 43, creatinine 1.09. Currently on room air, denies any cough. Denies any shortness of breath 12/18. Patient seen and examined. Ultrasound chest order for bilateral pleural effusions, pulmonology will consider thoracentesis if significant 12/19/22: Patient seen and evaluated bedside, at bedside as well overnight patient was delirious, plan discussed, continue to monitor, CBC and basic metabolic panel reviewed 12/20/22: Patient seen and evaluated bedside, accompanied with , CT head x- ray imaging reviewed no fracture noted continue to maintain maximum safety precautions. Yesterday in the afternoon patient had a fall unwitnessed bed alarm in place. Blood work reviewed CBC and serum chemistry reviewed CRP 2.9. Patient was started on thiamine, however when benzodiazepine PHYSICAL EXAMINATION: GENERAL: The patient is alert and oriented x 2, . Well developed, well nourished. Slow to respond however mentation slowly improving HEENT: Pupils are round and equally reacting to light. EOMI. . CARDIOVASCULAR: S1 and S2 present. No murmurs, rubs, or gallops. PULMONARY: Diminished breath sounds at the bases bilaterally ABDOMEN: Soft, nontender, nondistended, normoactive bowel sounds MUSCULOSKELETAL: No joint swelling or deformity. EXTREMITIES: 1+ pitting edema lower extremities bilaterally, left heel bandaged seen NEUROLOGICAL: Gross neurological examination did not reveal any focal deficits. Patient had episode of delirium Objective - Vital Signs Vital signs: Vital Signs Temp 97.6 F 12/20/22 07:16 Pulse 80 12/20/22 09:13 Resp 18 12/20/22 07:16 BP 104/55 12/20/22 07:16 Pulse Ox 91 L 12/20/22 09:06 FiO2 Intake & Output 12/19/22 12/20/22 12/20/22 18:59 06:59 18:59 Other: Voiding Method Diaper Urinal Toilet Urinal Diaper # Voids 1 3 # Bowel Movements 1 - Labs CBC & Chem 7: 12/20/22 11:11 12/20/22 11:11 Labs: Abnormal Lab Results - Last 24 Hours (Table) 12/19/22 12/19/22 12/20/22 Range/Units 16:31 20:36 06:03 RBC (4.30-5.90) m/uL Hgb (13.0-17.5) gm/dL Hct (39.0-53.0) % BUN (9-20) mg/dL Glucose (74-99) mg/dL POC Glucose (mg/dL) 245 H 231 H 202 H (70-110) mg/dL C-Reactive Protein (<1.0) mg/dL 12/20/22 12/20/22 12/20/22 Range/Units 11:11 11:11 11:26 RBC 4.15 L (4.30-5.90) m/uL Hgb 12.4 L (13.0-17.5) gm/dL Hct 38.7 L (39.0-53.0) % BUN 31 H (9-20) mg/dL Glucose 220 H (74-99) mg/dL POC Glucose (mg/dL) 217 H (70-110) mg/dL C-Reactive Protein 2.9 H (<1.0) mg/dL Microbiology - Last 24 Hours (Table) 12/16/22 12:20 Blood Culture - Preliminary Blood 12/16/22 12:35 Blood Culture - Preliminary Blood Assessment and Plan Assessment: Assessment and plan Urinary tract infection Proteus mirabilis UTI Acute metabolic encephalopathy with delirium Complex right renal cysts Bilateral pleural effusion Generalized weakness Paroxysmal atrial fibrillation anticoagulated with Eliquis Hypertension Hyperlipidemia Diabetes mellitus Chronic obstructive pulmonary disease BPH/urinary retention Dementia Monitor vital signs Monitor CBC Monitor CMP Aggressive bronchopulmonary hygiene In regards to UTI and antibiotic transitioned from cefepime to Rocephin In regards to bilateral pleural effusion patient started on Lasix Regards to atrial fibrillation continue patient on metoprolol, Eliquis on hold in anticipation of thoracentesis In regards to history of dementia continue patient on Exelon Continue breathing treatments Follow-up on blood cultures Follow-up on urine cultures grew Proteus mirabilis Ultrasound of kidneys done showed exogenous complex appearance of the kidneys with underlying sepsis Ultrasound chest order for bilateral pleural effusions, we will defer thoracentesis to pulmonary medicine Patient seen by urology, pulmonary medicine, infectious disease
[2022-12-20] MEDS ORDERED: THIAMINE 100 MG TAB PO SCH (12:15)
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
--- NOTE | 2022-12-20 14:47 | P.PN ---
Subjective Progress Note Date: 12/19/22 Principal diagnosis: UTI Patient is a 82-year-old male with multiple comorbidities in this patient who recently was admitted to the hospital did have extensive cellulitis of the pelvic area and culture positive for MRSA and Pseudomonas, Presenting to hospital with weakness and has been diagnosed with UTI On todays evaluation that is 12/19/2022, the patient continues to be afebrile, the patient is breathing comfortably on 2 L nasal cannula oxygen and denies any chest pain or cough, patient denies abdominal pain, and denies any nausea/vomiting or diarrhea WBC his 8.76, creatinine is 1.0, urine cultures with Proteus mirabilis that is sensitive pathogen Objective - Vital Signs Vital signs: Vital Signs Temp 97.5 F L 12/19/22 06:58 Pulse 76 12/19/22 10:09 Resp 21 12/19/22 06:58 BP 155/80 12/19/22 06:58 Pulse Ox 96 12/19/22 06:58 FiO2 Intake & Output 12/18/22 12/19/22 12/19/22 18:59 06:59 18:59 Other: Voiding Method Toilet Toilet Urinal Urinal Diaper # Voids 4 1 - Exam GENERAL DESCRIPTION: An elderly male lying in bed in no distress RESPIRATORY SYSTEM: Unlabored breathing , decreased breath sounds at bases HEART: S1 S2 regular rate and rhythm , ABDOMEN: Soft , no tenderness EXTREMITIES: No edema feet - Labs CBC & Chem 7: 12/20/22 11:11 12/20/22 11:11 Labs: Abnormal Lab Results - Last 24 Hours (Table) 12/18/22 12/18/22 12/18/22 Range/Units 11:25 16:32 19:31 POC Glucose (mg/dL) 224 H 146 H 201 H (70-110) mg/dL 12/19/22 Range/Units 05:25 POC Glucose (mg/dL) 172 H (70-110) mg/dL Microbiology - Last 24 Hours (Table) 12/16/22 11:10 Urine Culture - Final Urine,Voided Proteus mirabilis 12/16/22 12:20 Blood Culture - Preliminary Blood 12/16/22 12:35 Blood Culture - Preliminary Blood Assessment and Plan (1) UTI (urinary tract infection) Current Visit: Yes Status: Acute Code(s): N39.0 - URINARY TRACT INFECTION, SITE NOT SPECIFIED SNOMED Code(s): 95732847 Plan: 1patient presented to the hospital with weakness not feeling well recently completed course of antibiotic for UTI as well as pneumonia patient did have urinary symptom positive and likely concerning for symptomatic urinary tract infection in this patient has previously grown Pseudomonas we will need to cover for resistant gram-negative pathogen clinically doubt pneumonia as he did not have significant respiratory symptoms and is not requiring any supplemental oxygen 2-ultrasound of the kidneys , shows abnormality of the left kidney , patient has been evaluated by urology and possible benign cyst for the documentation 3-we will discontinue cefepime and start the patient on Rocephin 2 g daily Dictation was produced using [employer] dictation software. please excuse any grammatical, word or spelling errors.
--- NOTE | 2022-12-20 14:49 | P.PN ---
Subjective Progress Note Date: 12/20/22 Principal diagnosis: UTI Patient is a 82-year-old male with multiple comorbidities in this patient who recently was admitted to the hospital did have extensive cellulitis of the pelvic area and culture positive for MRSA and Pseudomonas, Presenting to hospital with weakness and has been diagnosed with UTI On todays evaluation that is 12/20/2022, the patient remains to be afebrile, the patient is breathing comfortably on 2 L nasal cannula supplemental oxygen patient is slightly lethargic this morning and unable to provide any history apparently the patient did have a fall yesterday history provided by at the bedside WBC his 8.7, creatinine is 0.92, urine cultures with Proteus mirabilis that is sensitive pathogen Objective - Vital Signs Vital signs: Vital Signs Temp 97.6 F 12/20/22 07:16 Pulse 80 12/20/22 09:13 Resp 18 12/20/22 07:16 BP 104/55 12/20/22 07:16 Pulse Ox 91 L 12/20/22 09:06 FiO2 Intake & Output 12/19/22 12/20/22 12/20/22 18:59 06:59 18:59 Weight 68.039 kg Other: Voiding Method Diaper Urinal Toilet Urinal Diaper # Voids 1 3 # Bowel Movements 1 - Exam GENERAL DESCRIPTION: An elderly male lying in bed in no distress RESPIRATORY SYSTEM: Unlabored breathing , decreased breath sounds at bases HEART: S1 S2 regular rate and rhythm , ABDOMEN: Soft , no tenderness EXTREMITIES: No edema feet - Labs CBC & Chem 7: 12/20/22 11:11 12/20/22 11:11 Labs: Abnormal Lab Results - Last 24 Hours (Table) 12/19/22 12/19/22 12/20/22 Range/Units 16:31 20:36 06:03 RBC (4.30-5.90) m/uL Hgb (13.0-17.5) gm/dL Hct (39.0-53.0) % BUN (9-20) mg/dL Glucose (74-99) mg/dL POC Glucose (mg/dL) 245 H 231 H 202 H (70-110) mg/dL C-Reactive Protein (<1.0) mg/dL 12/20/22 12/20/22 12/20/22 Range/Units 11:11 11:11 11:26 RBC 4.15 L (4.30-5.90) m/uL Hgb 12.4 L (13.0-17.5) gm/dL Hct 38.7 L (39.0-53.0) % BUN 31 H (9-20) mg/dL Glucose 220 H (74-99) mg/dL POC Glucose (mg/dL) 217 H (70-110) mg/dL C-Reactive Protein 2.9 H (<1.0) mg/dL Microbiology - Last 24 Hours (Table) 12/16/22 12:20 Blood Culture - Preliminary Blood 12/16/22 12:35 Blood Culture - Preliminary Blood Assessment and Plan (1) UTI (urinary tract infection) Current Visit: Yes Status: Acute Code(s): N39.0 - URINARY TRACT INFECTION, SITE NOT SPECIFIED SNOMED Code(s): 02182389 Plan: 1patient presented to the hospital with weakness not feeling well recently completed course of antibiotic for UTI as well as pneumonia patient did have urinary symptom positive and likely concerning for symptomatic urinary tract infection in this patient has previously grown Pseudomonas we will need to cover for resistant gram-negative pathogen clinically doubt pneumonia as he did not have significant respiratory symptoms and is not requiring any supplemental oxygen 2-ultrasound of the kidneys , shows abnormality of the left kidney , patient has been evaluated by urology and possible benign cyst for the documentation 3-patient to continue with Rocephin 2 g daily while inpatient however plan to finish therapy with oral antibiotics Dictation was produced using [employer] dictation software. please excuse any grammatical, word or spelling errors. Time with Patient: Less than 30
[2022-12-20 16:49] LABS: Glucose,Whole Blood 206 mg/dL (70-110)
[2022-12-20 20:41] LABS: Glucose,Whole Blood 249 mg/dL (70-110)
[2022-12-20] MEDS: OLANZapine 10 MG VIAL IM SCH (20:57)
[2022-12-20] MEDS: ATORVASTATIN 20 MG TAB PO SCH (20:57)
[2022-12-20] MEDS: MIRTAZAPINE 15 MG TAB PO SCH (20:57)
[2022-12-20] MEDS: MONTELUKAST 10 MG TAB PO SCH (20:57)
[2022-12-20] MEDS: THIAMINE 200 MG in SODIUM CHLORIDE 0.9% 100 ML IVPB SCH (21:21)
[2022-12-21] MEDS: ONDANSETRON 4 MG/2 ML VIAL IVP PRN ×2 (00:08→10:03)
[2022-12-21 06:12] LABS: Glucose,Whole Blood 239 mg/dL (70-110)
[2022-12-21] MEDS: INSULIN ASPART (NovoLOG) 100 UNIT/ML VIAL SQ SCH ×4 (06:42→21:07)
[2022-12-21 07:15] LABS: African American GFR (CKD) 88 (>60 ml/min/1.73 sqM); Anion Gap 4 mmol/L; Blood Urea Nitrogen 26 mg/dL (9-20); Calcium 9.9 mg/dL (8.4-10.2); Carbon Dioxide 25 mmol/L (22-30); Chloride 108 mmol/L (98-107); Glucose 237 mg/dL (74-99); Non-African American GFR(CKD) 76 (>60 ml/min/1.73 sqM); Potassium 4.1 mmol/L (3.5-5.1); Sodium 137 mmol/L (137-145)
[2022-12-21 07:24] LABS: NT-Pro-B-Type Natriuretic Pept 2420 pg/mL
[2022-12-21] MEDS: IPRATROPIUM-ALBUTEROL 3 ML NEB INHALATION SCH ×3 (08:28→22:08)
[2022-12-21] MEDS: FUROSEMIDE 40 MG TAB PO SCH (09:55)
[2022-12-21] MEDS: METOPROLOL SUCCINATE (ER) 25 MG TAB.ER.24H PO SCH ×2 (09:55→21:07)
[2022-12-21] MEDS: SPIRONOLACTONE 25 MG TAB PO SCH (09:55)
[2022-12-21] MEDS: RIVASTIGMINE TARTRATE 3 MG PO SCH ×2 (09:55→21:08)
[2022-12-21] MEDS: THIAMINE 200 MG in SODIUM CHLORIDE 0.9% 100 ML IVPB SCH ×2 (09:56→21:08)
[2022-12-21] MEDS: OLANZapine 10 MG VIAL IM SCH (09:58)
[2022-12-21] MEDS: NYSTATIN 100,000 UNIT/GM POWD 15 GM TOPICAL SCH (09:59)
[2022-12-21] MEDS: FLUDROCORTISONE 0.1 MG TAB PO SCH (10:06)
[2022-12-21] MEDS: CITALOPRAM HYDROBROMIDE 10 MG TAB PO SCH (10:06)
[2022-12-21] MEDS ORDERED: OLANZapine 10 MG VIAL IM PRN (10:20)
[2022-12-21 11:15] LABS: HGB 11.4 d/dL (13.0-17.0); MCH 29.5 pg (27.0-32.0); MCHC 32.6 d/dL (32.0-37.0); MCV 90.7 FL (80.0-97.0); Mean Platelet Volume 10.8 FL (9.5-12.2); NRBC Per 100 WBC 0 X 10*3/uL (0.00-0.01); Platelet Count 303 X 10*3/uL (140-440); RBC 3.86 X 10*6/uL (4.40-5.60); RDW 14.6 % (11.5-14.5); WBC 9.11 X 10*3/uL (4.50-10.00)
[2022-12-21] MEDS ORDERED: methylPREDNISolone SOD SUCCI 40 MG/ML 1 ML VIAL IV STA (11:25)
--- NOTE | 2022-12-21 11:27 | P.PN ---
Subjective Progress Note Date: 12/21/22 patient is 82-year-old gentleman with past medical history significant for atrial fibrillation, hypertension, hyperlipidemia who presented to the ER for generalized weakness for the last 5 days. Patient caregiver is his , who stated the patient just completed 3 weeks of antibiotics for pneumonia. Patient noticed that this morning patient was much more weaker and lethargic. She notices the patient was cold at home. No documented fevers at home. No complaint of shortness of breath. Complaining of productive cough, phlegm is whitish in color. Patient follows up with wound care clinic for follow-up on left heel ulcer, is healing well. Because of generalized weakness and lethargy, patient was brought to the ER Initial lab work done in the ER showed WBC 7.7, hemoglobin 14.5, platelet count 320, sodium 140, potassium 3.8, BUN 60, creatinine 1.31, calcium 10.4 UA showed large amount of leukocyte esterase, WBC more than 182 Chest x-ray done in the ER showed bilateral lower lobe infiltrates and small effusions which were stable Patient admitted to medicine service 12/17. Patient seen and examined. Lab work done showed WBC 9.6, hemoglobin 12, platelet count 303, sodium 137, potassium 3.6, BUN 43, creatinine 1.09. Currently on room air, denies any cough. Denies any shortness of breath 12/18. Patient seen and examined. Ultrasound chest order for bilateral pleural effusions, pulmonology will consider thoracentesis if significant 12/19/22: Patient seen and evaluated bedside, at bedside as well overnight patient was delirious, plan discussed, continue to monitor, CBC and basic metabolic panel reviewed 12/20/22: Patient seen and evaluated bedside, accompanied with , CT head x- ray imaging reviewed no fracture noted continue to maintain maximum safety precautions. Yesterday in the afternoon patient had a fall unwitnessed bed alarm in place. Blood work reviewed CBC and serum chemistry reviewed CRP 2.9. Patient was started on thiamine, however when benzodiazepine 12/21/22: Vision seen and evaluated bedside, at bedside as well. Patient is alert and oriented to person and situation. Patient does complain of nausea and an episode of vomiting.. Started on IV Protonix. 1 dose of Solu-Medrol given secondary to wheezing. Pulmonary medicine following plan for thoracentesis during this hospitalization PHYSICAL EXAMINATION: GENERAL: The patient is alert and oriented x 2, . ill appearance Slow to respo nd however mentation slowly improving HEENT: Pupils are round and equally reacting to light. EOMI. . CARDIOVASCULAR: S1 and S2 present. No murmurs, rubs, or gallops. PULMONARY: Diminished breath sounds bilaterally, wheezing audible ABDOMEN: Soft, nontender, nondistended, normoactive bowel sounds MUSCULOSKELETAL: No joint swelling or deformity. EXTREMITIES: 1+ pitting edema lower extremities bilaterally, left heel bandaged seen NEUROLOGICAL: Gross neurological examination did not reveal any focal deficits. Patient had episode of delirium Objective - Vital Signs Vital signs: Vital Signs Temp 97.6 F 12/21/22 07:09 Pulse 77 12/21/22 11:23 Resp 18 12/21/22 11:23 BP 131/63 12/21/22 07:09 Pulse Ox 93 L 12/21/22 08:28 FiO2 Intake & Output 12/20/22 12/21/22 12/21/22 18:59 06:59 18:59 Weight 68.039 kg Other: Voiding Method Toilet Toilet Urinal Urinal Diaper Diaper # Voids 3 1 - Labs CBC & Chem 7: 12/21/22 06:17 12/21/22 06:17 Labs: Abnormal Lab Results - Last 24 Hours (Table) 12/20/22 12/20/22 12/20/22 Range/Units 11:11 11:11 11:26 RBC 4.15 L (4.30-5.90) m/uL Hgb 12.4 L (13.0-17.5) gm/dL Hct 38.7 L (39.0-53.0) % RDW (11.5-14.5) % Chloride (98-107) mmol/L BUN 31 H (9-20) mg/dL Glucose 220 H (74-99) mg/dL POC Glucose (mg/dL) 217 H (70-110) mg/dL C-Reactive Protein 2.9 H (<1.0) mg/dL 12/20/22 12/20/22 12/21/22 Range/Units 16:48 20:39 06:11 RBC (4.30-5.90) m/uL Hgb (13.0-17.5) gm/dL Hct (39.0-53.0) % RDW (11.5-14.5) % Chloride (98-107) mmol/L BUN (9-20) mg/dL Glucose (74-99) mg/dL POC Glucose (mg/dL) 206 H 249 H 239 H (70-110) mg/dL C-Reactive Protein (<1.0) mg/dL 12/21/22 12/21/22 Range/Units 06:17 06:17 RBC 3.86 L (4.30-5.90) m/uL Hgb 11.4 L (13.0-17.5) gm/dL Hct 35.0 L (39.0-53.0) % RDW 14.6 H (11.5-14.5) % Chloride 108 H (98-107) mmol/L BUN 26 H (9-20) mg/dL Glucose 237 H (74-99) mg/dL POC Glucose (mg/dL) (70-110) mg/dL C-Reactive Protein (<1.0) mg/dL Assessment and Plan Assessment: Assessment and plan Urinary tract infection Proteus mirabilis UTI Acute metabolic encephalopathy with delirium Complex right renal cysts Bilateral pleural effusion Generalized weakness Paroxysmal atrial fibrillation anticoagulated with Eliquis Hypertension Hyperlipidemia Diabetes mellitus Chronic obstructive pulmonary disease BPH/urinary retention Dementia In regards to UTI and antibiotic transitioned from cefepime to Rocephin In regards to bilateral pleural effusion patient started on Lasix, Aldactone. Plan for thoracentesis Regards to atrial fibrillation continue patient on metoprolol, Eliquis on hold in anticipation of thoracentesis In regards to history of dementia continue patient on Exelon Continue breathing treatments, given 1 dose of IV Solu-Medrol 12/21 Follow-up on blood cultures Follow-up on urine cultures grew Proteus mirabilis Ultrasound of kidneys done showed exogenous complex appearance of the kidneys with underlying sepsis Ultrasound chest order for bilateral pleural effusions, we will defer thoracente sis to pulmonary medicine Patient seen by urology, pulmonary medicine, infectious disease
[2022-12-21 11:33] LABS: Glucose,Whole Blood 425 mg/dL (70-110)
[2022-12-21] MEDS: PANTOPRAZOLE 40 MG/10 ML VIAL IVP SCH ×2 (11:59→21:08)
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
[2022-12-21 17:16] LABS: Glucose,Whole Blood 247 mg/dL (70-110)
[2022-12-21 20:15] LABS: Glucose,Whole Blood 316 mg/dL (70-110)
[2022-12-21] MEDS: ATORVASTATIN 20 MG TAB PO SCH (21:07)
[2022-12-21] MEDS: MIRTAZAPINE 15 MG TAB PO SCH (21:07)
[2022-12-21] MEDS: MONTELUKAST 10 MG TAB PO SCH (21:07)
[2022-12-22 05:40] LABS: Glucose,Whole Blood 190 mg/dL (70-110)
[2022-12-22] MEDS: INSULIN ASPART (NovoLOG) 100 UNIT/ML VIAL SQ SCH ×4 (06:05→20:40)
--- NOTE | 2022-12-22 07:49 | XR ---
EXAMINATION TYPE: XR chest 1V DATE OF EXAM: 12/22/2022 7:08 AM COMPARISON: Chest radiographs from 12/20/2022 TECHNIQUE: XR chest 1V Frontal view of the chest. CLINICAL INDICATION:Male, 82 years old with history of Pleural effusion follow-up; FINDINGS: Lungs/Pleura: Blunting of both costophrenic angles with associated atelectasis. No pneumothorax Pulmonary vascularity: Pulmonary vascular congestion. Heart/mediastinum: Cardiomediastinal silhouette is enlarged and stable. Atherosclerotic calcificatio ns are seen in the aorta. Musculoskeletal: No acute osseous pathology. Degenerative changes of the thoracic spine. Remote left- sided rib fractures. IMPRESSION: Redemonstration of CHF exacerbation with cardiomegaly, pulmonary vascular congestion, and small to mo derate right and small left pleural effusions.
[2022-12-22] MEDS: IPRATROPIUM-ALBUTEROL 3 ML NEB INHALATION SCH ×3 (08:22→22:11)
--- NOTE | 2022-12-22 10:18 | CDI ---
Documentation Clarification Form Date: 12/21/2022 07:10:00 PM From: Zarina Freeman RN, CCDS Admit Date: 12/16/2022 12:44:00 PM Patient Name: Kenroy Lovelace Visit Number: [id number] Discharge Date: ATTENTION: The Clinical Documentation Specialists (CDI) and [facility] Coding Staff appreciate your assistance in clarifying documentation. Please respond to the clarification below the line at the bottom and electronically sign. The CDI & [facility] Coding staff will review the response and follow-up if needed. Please note: Queries are made part of the Legal Health Record. If you have any questions, please contact the author of this message via ITS. Dr. Evie Glass A left heel pressure ulcer stage III is documented by Nursing Wound Care. Based on this information and the findings below, is there an additional diagnosis that is clinically appropriate for this patient? History/Risk Factors: Atrial Fibrillation, Heart Failure, COPD, Diabetes Mellitus, Hyperlipidemia, Hypertension, Prostate Disorder Clinical Indicators: 82-year-old male with history of Diabetes Mellitus has documentation per ED of wound on his left heel, dressing was changed by home nurse the morning of 12/16/2022. He denies any increased pain, redness, swelling, drainage from the wound. Location: Left heel Wound description: Stage III, Thickened. Skin warm Erythema Treatment: Skin Integrity protocol Left heel dressing change per protocol Pillow Elevation Heel Left side Is there an additional diagnosis that is clinically appropriate for this patient? [x ] Left Heel ulcer] Pressure Ulcer Stage 2, POA [ ] Left Heel Pressure Ulcer Stage 3, POA [ ] Left Heel Pressure ulcer] Pressure Ulcer Stage 4, POA [ ] Other condition, please specify [ ] Unable to determine Clinical Definitions: Stage 1 Pressure Ulcer: intact skin, non-blanching redness of local area Stage 2 Pressure Ulcer: Partial thickness, loss of dermis, pink wound bed Stage 3 Pressure Ulcer: Full thickness tissue loss Stage 4 Pressure Ulcer: Full thickness tissue loss with exposed bone, tendon, or muscle. Unstageable pressure ulcer: Full thickness tissue loss in which the base of the ulcer is covered by slough (yellow, mayberry, manning, green or brown) and/or eschar (mayberry, brown or black) in the wound bed. (Template Last Revised: April 2020) MTDD
[2022-12-22 10:52] LABS: HGB 11.3 d/dL (13.0-17.0); MCH 29.5 pg (27.0-32.0); MCHC 32.3 d/dL (32.0-37.0); MCV 91.4 FL (80.0-97.0); Mean Platelet Volume 10.7 FL (9.5-12.2); NRBC Per 100 WBC 0 X 10*3/uL (0.00-0.01); Platelet Count 290 X 10*3/uL (140-440); RBC 3.83 X 10*6/uL (4.40-5.60); RDW 14.6 % (11.5-14.5)
[2022-12-22 11:04] LABS: BUN/Creat Ratio 22.64 Ratio (12.00-20.00); Blood Urea Nitrogen 24.9 mg/dL (9.0-27.0); Calcium 10.5 mg/dL (8.7-10.3); Chloride 109 mmol/L (96-109); Glucose 163 mg/dL (70-110); Potassium 4.7 mmol/L (3.5-5.5); Sodium 141 mmol/L (135-145)
[2022-12-22] MEDS: SPIRONOLACTONE 25 MG TAB PO SCH (11:08)
[2022-12-22] MEDS: FUROSEMIDE 40 MG TAB PO SCH (11:08)
[2022-12-22] MEDS: FLUDROCORTISONE 0.1 MG TAB PO SCH (11:08)
[2022-12-22] MEDS: PANTOPRAZOLE 40 MG/10 ML VIAL IVP SCH ×2 (11:09→20:40)
[2022-12-22] MEDS: RIVASTIGMINE TARTRATE 3 MG PO SCH ×2 (11:09→20:39)
[2022-12-22] MEDS: NYSTATIN 100,000 UNIT/GM POWD 15 GM TOPICAL SCH (11:12)
[2022-12-22] MEDS: THIAMINE 200 MG in SODIUM CHLORIDE 0.9% 100 ML IVPB SCH ×2 (11:13→20:40)
[2022-12-22 11:48] LABS: Glucose,Whole Blood 224 mg/dL (70-110)
[2022-12-22] MEDS: METOPROLOL SUCCINATE (ER) 25 MG TAB.ER.24H PO SCH ×2 (12:08→20:39)
--- NOTE | 2022-12-22 12:09 | XR ---
EXAMINATION TYPE: XR chest 1V DATE OF EXAM: 12/22/2022 12:03 PM CLINICAL INDICATION:Male, 82 years old with history of post thoracentesis; COMPARISON: Chest radiographs from 12/22/2022 TECHNIQUE: XR chest 1V Frontal view of the chest. FINDINGS: Lungs/Pleura: Improved aeration the lungs with persistent moderate bilateral pleural effusions. Pleur al effusion has decreased on the right. There is no evidence of focal consolidation, or pneumothorax. Pulmonary vascularity: Unremarkable. Heart/mediastinum: Cardiomediastinal silhouette is unremarkable. Musculoskeletal: No acute osseous pathology. IMPRESSION: 1. Improved aeration of the lung with persistent evidence for moderate bilateral pleural effusions a nd cardiomegaly. No evidence for pneumothorax.
--- NOTE | 2022-12-22 14:19 | P.PN ---
Subjective Progress Note Date: 12/22/22 patient is 82-year-old gentleman with past medical history significant for atrial fibrillation, hypertension, hyperlipidemia who presented to the ER for generalized weakness for the last 5 days. Patient caregiver is his , who stated the patient just completed 3 weeks of antibiotics for pneumonia. Patient noticed that this morning patient was much more weaker and lethargic. She notices the patient was cold at home. No documented fevers at home. No complaint of shortness of breath. Complaining of productive cough, phlegm is whitish in color. Patient follows up with wound care clinic for follow-up on left heel ulcer, is healing well. Because of generalized weakness and lethargy, patient was brought to the ER Initial lab work done in the ER showed WBC 7.7, hemoglobin 14.5, platelet count 320, sodium 140, potassium 3.8, BUN 60, creatinine 1.31, calcium 10.4 UA showed large amount of leukocyte esterase, WBC more than 182 Chest x-ray done in the ER showed bilateral lower lobe infiltrates and small effusions which were stable Patient admitted to medicine service 12/17. Patient seen and examined. Lab work done showed WBC 9.6, hemoglobin 12, platelet count 303, sodium 137, potassium 3.6, BUN 43, creatinine 1.09. Currently on room air, denies any cough. Denies any shortness of breath 12/18. Patient seen and examined. Ultrasound chest order for bilateral pleural effusions, pulmonology will consider thoracentesis if significant 12/19/22: Patient seen and evaluated bedside, at bedside as well overnight patient was delirious, plan discussed, continue to monitor, CBC and basic metabolic panel reviewed 12/20/22: Patient seen and evaluated bedside, accompanied with , CT head x- ray imaging reviewed no fracture noted continue to maintain maximum safety precautions. Yesterday in the afternoon patient had a fall unwitnessed bed alarm in place. Blood work reviewed CBC and serum chemistry reviewed CRP 2.9. Patient was started on thiamine, however when benzodiazepine 12/21/22: Vision seen and evaluated bedside, at bedside as well. Patient is alert and oriented to person and situation. Patient does complain of nausea and an episode of vomiting.. Started on IV Protonix. 1 dose of Solu-Medrol given secondary to wheezing. Pulmonary medicine following plan for thoracentesis during this hospitalization 12/22/22: Patient seen and evaluated bedside, patient accompanied by mentation has improved, sitting at bedside, mentation improved continue patient on IV Rocephin, continue thiamine, Eliquis continued to remain on hold in anticipation of thoracentesis PHYSICAL EXAMINATION: GENERAL: The patient is alert and oriented x 2, . ill appearance Slow to respond however mentation slowly improving HEENT: Pupils are round and equally reacting to light. EOMI. . CARDIOVASCULAR: S1 and S2 present. No murmurs, rubs, or gallops. PULMONARY: Diminished breath sounds bilaterally, ABDOMEN: Soft, nontender, nondistended, normoactive bowel sounds MUSCULOSKELETAL: No joint swelling or deformity. EXTREMITIES: 1+ pitting edema lower extremities bilaterally, left heel bandaged seen NEUROLOGICAL: Gross neurological examination did not reveal any focal deficits. Patient had episode of delirium Objective - Vital Signs Vital signs: Vital Signs Temp 97.4 F L 12/22/22 12:27 Pulse 72 12/22/22 12:32 Resp 15 12/22/22 12:27 BP 109/62 12/22/22 12:27 Pulse Ox 100 12/22/22 12:27 FiO2 Intake & Output 12/21/22 12/22/22 12/22/22 18:59 06:59 18:59 Intake Total 100 Output Total 300 Balance -200 Intake: Intake, IV Titration 100 Amount Thiamine 200 mg In Sodium 100 Chloride 0.9% 100 ml @ 200 mls/hr IVPB Q12HR [facility] Rx#:[id number] Output: Urine 300 Other: Voiding Method Urinal Urinal Diaper Diaper # Voids 3 1 - Labs CBC & Chem 7: 12/22/22 07:20 12/22/22 07:20 Labs: Abnormal Lab Results - Last 24 Hours (Table) 12/21/22 12/21/22 12/22/22 Range/Units 17:15 20:13 05:38 RBC (4.40-5.60) X 10*6/uL Hgb (13.0-17.0) d/dL Hct (39.6-50.0) % RDW (11.5-14.5) % BUN/Creatinine Ratio (12.00-20.00) Ratio Glucose (70-110) mg/dL POC Glucose (mg/dL) 247 H 316 H 190 H (70-110) mg/dL Calcium (8.7-10.3) mg/dL C-Reactive Protein (0.00-0.80) mg/dL 12/22/22 12/22/22 12/22/22 Range/Units 07:20 07:20 11:47 RBC 3.83 L (4.40-5.60) X 10*6/uL Hgb 11.3 L (13.0-17.0) d/dL Hct 35.0 L (39.6-50.0) % RDW 14.6 H (11.5-14.5) % BUN/Creatinine Ratio 22.64 H (12.00-20.00) Ratio Glucose 163 H (70-110) mg/dL POC Glucose (mg/dL) 224 H (70-110) mg/dL Calcium 10.5 H (8.7-10.3) mg/dL C-Reactive Protein 1.50 H (0.00-0.80) mg/dL Microbiology - Last 24 Hours (Table) 12/16/22 12:20 Blood Culture - Final Blood 12/16/22 12:35 Blood Culture - Final Blood Assessment and Plan Assessment: Assessment and plan Urinary tract infection Proteus mirabilis UTI Acute metabolic encephalopathy with delirium Complex right renal cysts Bilateral pleural effusion Generalized weakness Paroxysmal atrial fibrillation anticoagulated with Eliquis Hypertension Hyperlipidemia Diabetes mellitus Chronic obstructive pulmonary disease BPH/urinary retention Dementia In regards to UTI and antibiotic transitioned from cefepime to Rocephin In regards to bilateral pleural effusion patient started on Lasix, Aldactone. Plan for thoracentesis Regards to atrial fibrillation continue patient on metoprolol, Eliquis on hold in anticipation of thoracentesis In regards to history of dementia continue patient on Exelon Continue breathing treatments, given 1 dose of IV Solu-Medrol 12/21 Follow-up on blood cultures Follow-up on urine cultures grew Proteus mirabilis Ultrasound of kidneys done showed exogenous complex appearance of the kidneys with underlying sepsis Ultrasound chest order for bilateral pleural effusions, we will defer thoracentesis to pulmonary medicine Patient seen by urology, pulmonary medicine, infectious disease
[2022-12-22 16:22] LABS: Glucose,Whole Blood 270 mg/dL (70-110)
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
--- NOTE | 2022-12-22 19:06 | P.PCN ---
Date of Procedure: 12/22/22 Preoperative Diagnosis: Bilateral pleural effusion Postoperative Diagnosis: Thoracentesis, right side Procedure(s) Performed: Right thoracentesis Anesthesia: local Surgeon: Pete Walker Pathology: other Condition: stable Disposition: floor Operative Findings: A time out was performed and the chest x-ray was reviewed, the appropriate side was confirmed and marked. My hands were washed immediately prior to the procedure. I wore a surgical cap, mask with protective eyewear, sterile gown and sterile gloves throughout the procedure. The patient was prepped and draped in a sterile manner using chlorhexidine scrub after the appropriate level was percussed and confirmed by ultrasound. 1% lidocaine was used to anesthesize the skin, subcutaneous tissue, superior aspect of the rib periosteum and parietal pleura. A finder needle was then introduced over the superior aspect of the rib to locate the pleural fluid; 2colored fluid was aspirated at a depth of approximately 2 cm. A 10-blade scalpel was used to eyad the skin at the insertion site. The Ghay-v-Gmemoxzo needle was then introduced through the skin incision into the pleural space using negative aspiration pressure and the red colometric indicator to confirm appropriate positioning of the needle. The thoracentesis catheter was then threaded without difficulty. 2000 ml of turbid colored fluid was removed without difficulty. The catheter was then removed. No immediate complications were noted during the procedure. A post-procedure chest x-ray is pending at the time of this note. The fluid will be sent for studies. Estimated blood loss is 0cc
[2022-12-22 20:29] LABS: Glucose,Whole Blood 232 mg/dL (70-110)
[2022-12-22] MEDS: MIRTAZAPINE 15 MG TAB PO SCH (20:39)
[2022-12-22] MEDS: ATORVASTATIN 20 MG TAB PO SCH (20:40)
[2022-12-22] MEDS: MONTELUKAST 10 MG TAB PO SCH (20:40)
--- NOTE | 2022-12-22 21:06 | P.PN ---
Subjective Progress Note Date: 12/21/22 Principal diagnosis: UTI Patient is a 82-year-old male with multiple comorbidities in this patient who recently was admitted to the hospital did have extensive cellulitis of the pelvic area and culture positive for MRSA and Pseudomonas, Presenting to hospital with weakness and has been diagnosed with UTI On todays evaluation that is 12/21/2022, the patient denies any fever and chills, the patient is breathing comfortably on 2LNC oxygen and denies any shortness of breath, the patient denies having any chest pain or cough, patient denies Abdominal pain, nausea/vomiting /diarrhea WBC is 9.11, creatinine is 0.93, urine cultures with Proteus mirabilis that is sensitive pathogen Objective - Vital Signs Vital signs: Vital Signs Temp 97.6 F 12/21/22 07:09 Pulse 77 12/21/22 11:23 Resp 18 12/21/22 11:23 BP 131/63 12/21/22 07:09 Pulse Ox 93 L 12/21/22 08:28 FiO2 Intake & Output 12/20/22 12/21/22 12/21/22 18:59 06:59 18:59 Weight 68.039 kg Other: Voiding Method Toilet Toilet Urinal Urinal Diaper Diaper # Voids 3 1 - Exam GENERAL DESCRIPTION: An elderly male lying in bed in no distress RESPIRATORY SYSTEM: Unlabored breathing , decreased breath sounds at bases HEART: S1 S2 regular rate and rhythm , ABDOMEN: Soft , no tenderness EXTREMITIES: No edema feet - Labs CBC & Chem 7: 12/22/22 07:20 12/22/22 07:20 Labs: Abnormal Lab Results - Last 24 Hours (Table) 12/20/22 12/20/22 12/21/22 Range/Units 16:48 20:39 06:11 RBC (4.40-5.60) X 10*6/uL Hgb (13.0-17.0) d/dL Hct (39.6-50.0) % RDW (11.5-14.5) % Chloride (98-107) mmol/L BUN (9-20) mg/dL Glucose (74-99) mg/dL POC Glucose (mg/dL) 206 H 249 H 239 H (70-110) mg/dL 10/25/23 10/25/23 10/25/23 Range/Units 06:17 06:17 11:31 RBC 3.86 L (4.40-5.60) X 10*6/uL Hgb 11.4 L (13.0-17.0) d/dL Hct 35.0 L (39.6-50.0) % RDW 14.6 H (11.5-14.5) % Chloride 108 H (98-107) mmol/L BUN 26 H (9-20) mg/dL Glucose 237 H (74-99) mg/dL POC Glucose (mg/dL) 425 H (70-110) mg/dL Assessment and Plan (1) UTI (urinary tract infection) Current Visit: Yes Status: Acute Code(s): N39.0 - URINARY TRACT INFECTION, SITE NOT SPECIFIED SNOMED Code(s): 06181937 Plan: 1patient presented to the hospital with weakness not feeling well recently completed course of antibiotic for UTI as well as pneumonia patient did have urinary symptom positive and likely concerning for symptomatic urinary tract infection in this patient has previously grown Pseudomonas we will need to cover for resistant gram-negative pathogen clinically doubt pneumonia as he did not have significant respiratory symptoms and is not requiring any supplemental oxygen 2-ultrasound of the kidneys , shows abnormality of the left kidney , patient has been evaluated by urology and possible benign cyst per there documentation 3-patient has shown some clinical improvement and will continue with Rocephin 2 g daily while inpatient Dictation was produced using [employer] dictation software. please excuse any grammatical, word or spelling errors. Time with Patient: Less than 30
--- NOTE | 2022-12-22 21:08 | P.PN ---
Subjective Progress Note Date: 12/22/22 Principal diagnosis: UTI Patient is a 82-year-old male with multiple comorbidities in this patient who recently was admitted to the hospital did have extensive cellulitis of the pelvic area and culture positive for MRSA and Pseudomonas, Presenting to hospital with weakness and has been diagnosed with UTI On todays evaluation that is 12/22/2022, the patient continues to be afebrile, the patient is c/o shortness of breath today , still on 2LNC oxygen , the patient denies any chest pain or cough, patient denies abdominal pain, and denies any nausea/vomiting or diarrhea WBC his 8.6, creatinine is 1.1, urine cultures with Proteus mirabilis that is sensitive pathogen Objective - Vital Signs Vital signs: Vital Signs Temp 97.7 F 12/22/22 07:08 Pulse 52 L 12/22/22 10:25 Resp 18 12/22/22 10:25 BP 127/76 12/22/22 07:08 Pulse Ox 98 12/22/22 08:22 FiO2 Intake & Output 12/21/22 12/22/22 12/22/22 18:59 06:59 18:59 Intake Total 100 Output Total 300 Balance -200 Intake: Intake, IV Titration 100 Amount Thiamine 200 mg In Sodium 100 Chloride 0.9% 100 ml @ 200 mls/hr IVPB Q12HR [facility] Rx#:[id number] Output: Urine 300 Other: Voiding Method Urinal Urinal Diaper Diaper # Voids 3 1 - Exam GENERAL DESCRIPTION: An elderly male lying in bed in no distress RESPIRATORY SYSTEM: Unlabored breathing , decreased breath sounds at bases HEART: S1 S2 regular rate and rhythm , ABDOMEN: Soft , no tenderness EXTREMITIES: No edema feet - Labs CBC & Chem 7: 12/22/22 07:20 12/22/22 07:20 Labs: Abnormal Lab Results - Last 24 Hours (Table) 12/21/22 12/21/22 12/22/22 Range/Units 17:15 20:13 05:38 RBC (4.40-5.60) X 10*6/uL Hgb (13.0-17.0) d/dL Hct (39.6-50.0) % RDW (11.5-14.5) % BUN/Creatinine Ratio (12.00-20.00) Ratio Glucose (70-110) mg/dL POC Glucose (mg/dL) 247 H 316 H 190 H (70-110) mg/dL Calcium (8.7-10.3) mg/dL C-Reactive Protein (0.00-0.80) mg/dL 12/22/22 12/22/22 12/22/22 Range/Units 07:20 07:20 11:47 RBC 3.83 L (4.40-5.60) X 10*6/uL Hgb 11.3 L (13.0-17.0) d/dL Hct 35.0 L (39.6-50.0) % RDW 14.6 H (11.5-14.5) % BUN/Creatinine Ratio 22.64 H (12.00-20.00) Ratio Glucose 163 H (70-110) mg/dL POC Glucose (mg/dL) 224 H (70-110) mg/dL Calcium 10.5 H (8.7-10.3) mg/dL C-Reactive Protein 1.50 H (0.00-0.80) mg/dL Microbiology - Last 24 Hours (Table) 12/16/22 12:20 Blood Culture - Final Blood 12/16/22 12:35 Blood Culture - Final Blood Assessment and Plan (1) UTI (urinary tract infection) Current Visit: Yes Status: Acute Code(s): N39.0 - URINARY TRACT INFECTION, SITE NOT SPECIFIED SNOMED Code(s): 83338227 Plan: 1patient presented to the hospital with weakness not feeling well recently completed course of antibiotic for UTI as well as pneumonia patient did have urinary symptom positive and likely concerning for symptomatic urinary tract infection in this patient has previously grown Pseudomonas we will need to cover for resistant gram-negative pathogen clinically doubt pneumonia as he did not have significant respiratory symptoms and is not requiring any supplemental oxygen 2-ultrasound of the kidneys , shows abnormality of the left kidney , patient has been evaluated by urology and possible benign cyst per there documentation 3- possible plan for thoroacocentesis per this afternoon will continue wit h Rocephin 2 g daily while inpatient Dictation was produced using [employer] dictation software. please excuse any grammatical, word or spelling errors. Time with Patient: Less than 30
[2022-12-22 21:19] LABS: Appearance,BF Bloody (Clear)
[2022-12-23 00:12] LABS: Glucose, BF Source Pleural fluid; Glucose, Body Fluid 225 mg/dL; LDH, Body Fluid Source Pleural fluid; T. Protein, Body Fluid Source Pleural fluid; Total Protein, Body Fluid 3340 mg/dL
[2022-12-23 06:22] LABS: Glucose,Whole Blood 176 mg/dL (70-110)
[2022-12-23] MEDS: INSULIN ASPART (NovoLOG) 100 UNIT/ML VIAL SQ SCH ×4 (06:39→21:34)
[2022-12-23] MEDS: IPRATROPIUM-ALBUTEROL 3 ML NEB INHALATION SCH ×3 (09:07→20:54)
[2022-12-23] MEDS: THIAMINE 200 MG in SODIUM CHLORIDE 0.9% 100 ML IVPB SCH ×2 (09:55→21:35)
[2022-12-23] MEDS: ERGOCALCIFEROL 1,250 MCG (50,000 IU) CAPSULE PO SCH (09:56)
[2022-12-23] MEDS: CITALOPRAM HYDROBROMIDE 10 MG TAB PO SCH (09:56)
[2022-12-23] MEDS: FUROSEMIDE 40 MG TAB PO SCH (09:57)
[2022-12-23] MEDS: FLUDROCORTISONE 0.1 MG TAB PO SCH (09:57)
[2022-12-23] MEDS: NYSTATIN 100,000 UNIT/GM POWD 15 GM TOPICAL SCH (09:57)
[2022-12-23] MEDS: PANTOPRAZOLE 40 MG/10 ML VIAL IVP SCH ×2 (09:58→21:35)
[2022-12-23] MEDS: RIVASTIGMINE TARTRATE 3 MG PO SCH ×2 (09:59→21:34)
[2022-12-23] MEDS: SPIRONOLACTONE 25 MG TAB PO SCH (09:59)
[2022-12-23 11:12] LABS: HCT 31.9 % (39.6-50.0); HGB 10.4 d/dL (13.0-17.0); MCHC 32.6 d/dL (32.0-37.0); MCV 91.9 FL (80.0-97.0); Mean Platelet Volume 10.9 FL (9.5-12.2); NRBC Per 100 WBC 0 X 10*3/uL (0.00-0.01); Platelet Count 267 X 10*3/uL (140-440); RBC 3.47 X 10*6/uL (4.40-5.60); RDW 14.9 % (11.5-14.5); WBC 7.47 X 10*3/uL (4.50-10.00)
[2022-12-23 11:20] LABS: Glucose,Whole Blood 253 mg/dL (70-110)
[2022-12-23 11:26] LABS: BUN/Creat Ratio 9.55 Ratio (12.00-20.00); Blood Urea Nitrogen 10.5 mg/dL (9.0-27.0); Calcium 9.2 mg/dL (8.7-10.3); Carbon Dioxide 33.3 mmol/L (21.6-31.8); Chloride 109 mmol/L (96-109); Glucose 157 mg/dL (70-110); Potassium 4.6 mmol/L (3.5-5.5); Sodium 141 mmol/L (135-145)
[2022-12-23] MEDS: METOPROLOL SUCCINATE (ER) 25 MG TAB.ER.24H PO SCH ×2 (12:38→21:34)
--- NOTE | 2022-12-23 15:09 | P.PN ---
Subjective Progress Note Date: 12/23/22 patient is 82-year-old gentleman with past medical history significant for atrial fibrillation, hypertension, hyperlipidemia who presented to the ER for generalized weakness for the last 5 days. Patient caregiver is his , who stated the patient just completed 3 weeks of antibiotics for pneumonia. Patient noticed that this morning patient was much more weaker and lethargic. She notices the patient was cold at home. No documented fevers at home. No complaint of shortness of breath. Complaining of productive cough, phlegm is whitish in color. Patient follows up with wound care clinic for follow-up on left heel ulcer, is healing well. Because of generalized weakness and lethargy, patient was brought to the ER Initial lab work done in the ER showed WBC 7.7, hemoglobin 14.5, platelet count 320, sodium 140, potassium 3.8, BUN 60, creatinine 1.31, calcium 10.4 UA showed large amount of leukocyte esterase, WBC more than 182 Chest x-ray done in the ER showed bilateral lower lobe infiltrates and small effusions which were stable Patient admitted to medicine service 12/17. Patient seen and examined. Lab work done showed WBC 9.6, hemoglobin 12, platelet count 303, sodium 137, potassium 3.6, BUN 43, creatinine 1.09. Currently on room air, denies any cough. Denies any shortness of breath 12/18. Patient seen and examined. Ultrasound chest order for bilateral pleural effusions, pulmonology will consider thoracentesis if significant 12/19/22: Patient seen and evaluated bedside, at bedside as well overnight patient was delirious, plan discussed, continue to monitor, CBC and basic metabolic panel reviewed 12/20/22: Patient seen and evaluated bedside, accompanied with , CT head x- ray imaging reviewed no fracture noted continue to maintain maximum safety precautions. Yesterday in the afternoon patient had a fall unwitnessed bed alarm in place. Blood work reviewed CBC and serum chemistry reviewed CRP 2.9. Patient was started on thiamine, however when benzodiazepine 12/21/22: Vision seen and evaluated bedside, at bedside as well. Patient is alert and oriented to person and situation. Patient does complain of nausea and an episode of vomiting.. Started on IV Protonix. 1 dose of Solu-Medrol given secondary to wheezing. Pulmonary medicine following plan for thoracentesis during this hospitalization 12/22/22: Patient seen and evaluated bedside, patient accompanied by mentation has improved, sitting at bedside, mentation improved continue patient on IV Rocephin, continue thiamine, Eliquis continued to remain on hold in anticipation of thoracentesis 12/23. Patient seen and examined. Patient underwent thoracentesis yesterday on right side with removal of 2000 mL of fluid. Pulmonology might do thoracentesis of left side today. at the bedside, all questions answered REVIEW OF SYSTEMS: CONSTITUTIONAL: No fever, no malaise,. CARDIOVASCULAR: No chest pain, no palpitations, no syncope. PULMONARY: No shortness of breath, no cough, GASTROINTESTINAL: No diarrhea, no nausea, no vomiting, no abdominal pain. NEUROLOGICAL: No headaches, no weakness, PHYSICAL EXAMINATION: GENERAL: The patient is alert and oriented x3, not in any acute distress. Well developed, well nourished. HEENT: Pupils are round and equally reacting to light. EOMI. No scleral icterus. No conjunctival pallor. Normocephalic, atraumatic. No pharyngeal erythema. No thyromegaly. CARDIOVASCULAR: S1 and S2 present. No murmurs, rubs, or gallops. PULMONARY: Diminished breath sounds at the bases bilaterally ABDOMEN: Soft, nontender, nondistended, normoactive bowel sounds. No palpable organomegaly. MUSCULOSKELETAL: No joint swelling or deformity. EXTREMITIES: 1+ pitting edema lower extremities bilaterally, left heel bandaged seen NEUROLOGICAL: Gross neurological examination did not reveal any focal deficits. SKIN: No rashes. Assessment and plan Urinary tract infection Proteus mirabilis UTI Acute metabolic encephalopathy with delirium Complex right renal cysts Bilateral pleural effusion Generalized weakness Paroxysmal atrial fibrillation anticoagulated with Eliquis Hypertension Hyperlipidemia Diabetes mellitus Chronic obstructive pulmonary disease BPH/urinary retention Dementia In regards to UTI , continue Rocephin, ID following In regards to bilateral pleural effusion, underwent right-sided thoracentesis removal of 2000 mL of fluid. Pulmonology following might consider doing left- sided thoracentesis Regards to atrial fibrillation continue patient on metoprolol, resume Eliquis once okay with pulmonology In regards to history of dementia continue patient on Exelon Continue breathing treatments, Ultrasound of kidneys done showed exogenous complex appearance of the kidneys with underlying sepsis Patient seen by urology, pulmonary medicine, infectious disease Labs and medication were reviewed.. Continue same treatment. Continue with symptomatic treatment. Resume home medication. Monitor labs and vitals. DVT and GI prophylaxis. Further recommendations as per clinical course of the patient Dictation was produced using [employer] dictation software. please excuse any grammatical, word or spelling errors. Objective - Vital Signs Vital signs: Vital Signs Temp 97.9 F 12/23/22 07:38 Pulse 76 12/23/22 09:25 Resp 18 12/23/22 07:38 BP 112/58 12/23/22 07:38 Pulse Ox 97 12/23/22 09:08 FiO2 Intake & Output 12/22/22 12/23/22 12/23/22 18:59 06:59 18:59 Intake Total 100 Output Total 100 Balance 0 Intake: Intake, IV Titration 100 Amount Thiamine 200 mg In Sodium 100 Chloride 0.9% 100 ml @ 200 mls/hr IVPB Q12HR [facility] Rx#:[id number] Output: Urine 100 Other: Voiding Method Urinal Urinal Diaper Diaper # Voids 2 1 # Bowel Movements 1 - Labs CBC & Chem 7: 12/23/22 06:40 12/23/22 06:40 Labs: Abnormal Lab Results - Last 24 Hours (Table) 12/22/22 12/22/22 12/22/22 Range/Units 11:47 11:50 16:20 POC Glucose (mg/dL) 224 H 270 H (70-110) mg/dL Fluid Appearance Bloody A (Clear) 12/22/22 12/23/22 Range/Units 20:27 06:20 POC Glucose (mg/dL) 232 H 176 H (70-110) mg/dL Fluid Appearance (Clear) Microbiology - Last 24 Hours (Table) 12/22/22 11:50 Gram Stain - Preliminary Pleural Fluid Body Fluid Culture - Preliminary
--- NOTE | 2022-12-23 15:09 | P.PN ---
Subjective Progress Note Date: 12/23/22 Principal diagnosis: UTI Patient is a 82-year-old male with multiple comorbidities in this patient who recently was admitted to the hospital did have extensive cellulitis of the pelvic area and culture positive for MRSA and Pseudomonas, Presenting to hospital with weakness and has been diagnosed with UTI, patient is status post TURP right-sided thoracocentesis with removal of 2000 mL of turbid fluid On todays evaluation that is 12/23/2022, the patient denies any fever or any chills, the patient is breathing comfortably on 2 L nasal cannula supplemental oxygen, the patient denies any chest pain or cough, patient denies any nausea/vomiting or diarrhea and no abdominal pain Patient white count is 7.47, creatinine is 1.1, CRP 0.70, pleural fluid was bloody only 804 WBC, urine cultures with Proteus mirabilis that is sensitive pathogen Objective - Vital Signs Vital signs: Vital Signs Temp 97.9 F 12/23/22 07:38 Pulse 76 12/23/22 09:25 Resp 18 12/23/22 07:38 BP 112/58 12/23/22 07:38 Pulse Ox 97 12/23/22 09:08 FiO2 Intake & Output 12/22/22 12/23/22 12/23/22 18:59 06:59 18:59 Intake Total 100 Output Total 100 Balance 0 Intake: Intake, IV Titration 100 Amount Thiamine 200 mg In Sodium 100 Chloride 0.9% 100 ml @ 200 mls/hr IVPB Q12HR [facility] Rx#:[id number] Output: Urine 100 Other: Voiding Method Urinal Urinal Diaper Diaper # Voids 2 1 # Bowel Movements 1 - Exam GENERAL DESCRIPTION: An elderly male lying in bed in no distress RESPIRATORY SYSTEM: Unlabored breathing , decreased breath sounds at bases HEART: S1 S2 regular rate and rhythm , ABDOMEN: Soft , no tenderness EXTREMITIES: No edema feet - Labs CBC & Chem 7: 12/23/22 06:40 12/23/22 06:40 Labs: Abnormal Lab Results - Last 24 Hours (Table) 12/22/22 12/22/22 12/22/22 Range/Units 11:50 16:20 20:27 RBC (4.40-5.60) X 10*6/uL Hgb (13.0-17.0) d/dL Hct (39.6-50.0) % RDW (11.5-14.5) % Carbon Dioxide (21.6-31.8) mmol/L Anion Gap (4.00-12.00) mmol/L BUN/Creatinine Ratio (12.00-20.00) Ratio Glucose (70-110) mg/dL POC Glucose (mg/dL) 270 H 232 H (70-110) mg/dL Fluid Appearance Bloody A (Clear) 12/23/22 12/23/22 12/23/22 Range/Units 06:20 06:40 06:40 RBC 3.47 L (4.40-5.60) X 10*6/uL Hgb 10.4 L (13.0-17.0) d/dL Hct 31.9 L (39.6-50.0) % RDW 14.9 H (11.5-14.5) % Carbon Dioxide 33.3 H (21.6-31.8) mmol/L Anion Gap -1.30 L (4.00-12.00) mmol/L BUN/Creatinine Ratio 9.55 L (12.00-20.00) Ratio Glucose 157 H (70-110) mg/dL POC Glucose (mg/dL) 176 H (70-110) mg/dL Fluid Appearance (Clear) 12/23/22 Range/Units 11:19 RBC (4.40-5.60) X 10*6/uL Hgb (13.0-17.0) d/dL Hct (39.6-50.0) % RDW (11.5-14.5) % Carbon Dioxide (21.6-31.8) mmol/L Anion Gap (4.00-12.00) mmol/L BUN/Creatinine Ratio (12.00-20.00) Ratio Glucose (70-110) mg/dL POC Glucose (mg/dL) 253 H (70-110) mg/dL Fluid Appearance (Clear) Microbiology - Last 24 Hours (Table) 12/22/22 11:50 Gram Stain - Preliminary Pleural Fluid Body Fluid Culture - Preliminary Assessment and Plan (1) UTI (urinary tract infection) Current Visit: Yes Status: Acute Code(s): N39.0 - URINARY TRACT INFECTION, SITE NOT SPECIFIED SNOMED Code(s): 91762264 Plan: 1patient presented to the hospital with weakness not feeling well recently completed course of antibiotic for UTI as well as pneumonia patient did have urinary symptom positive and likely concerning for symptomatic urinary tract infection in this patient has previously grown Pseudomonas we will need to cover for resistant gram-negative pathogen clinically doubt pneumonia as he did not have significant respiratory symptoms and is not requiring any supplemental oxygen 2-ultrasound of the kidneys , shows abnormality of the left kidney , patient has been evaluated by urology and possible benign cyst per there documentation 3- patient is slowly clinically improving and will continue Rocephin 2 g daily and monitor clinical course closely at the bedside multiple questions and concerns were answered in Layman terms Dictation was produced using [employer] dictation software. please excuse any grammatical, word or spelling errors. Time with Patient: Less than 30
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
[2022-12-23 16:32] LABS: Glucose,Whole Blood 213 mg/dL (70-110)
[2022-12-23 21:00] LABS: Glucose,Whole Blood 184 mg/dL (70-110)
[2022-12-23] MEDS: MONTELUKAST 10 MG TAB PO SCH (21:34)
[2022-12-23] MEDS: ATORVASTATIN 20 MG TAB PO SCH (21:34)
[2022-12-23] MEDS: MIRTAZAPINE 15 MG TAB PO SCH (21:34)
[2022-12-24 06:26] LABS: Glucose,Whole Blood 162 mg/dL (70-110)
[2022-12-24] MEDS: INSULIN ASPART (NovoLOG) 100 UNIT/ML VIAL SQ SCH ×4 (06:55→20:40)
[2022-12-24] MEDS: IPRATROPIUM-ALBUTEROL 3 ML NEB INHALATION SCH ×3 (08:15→20:25)
[2022-12-24] MEDS ORDERED: LIDOCAINE 1% INJ 10MG/ML (20 ML MDV) ONE (09:41)
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
--- NOTE | 2022-12-24 09:54 | P.PCN ---
Date of Procedure: 12/24/22 Operative Findings: Preoperative Diagnosis: Bilateral pleural effusion Postoperative Diagnosis: Thoracentesis, left sided Procedure(s) Performed: Left-sided thoracentesis Anesthesia: local Surgeon: Pete Walker Pathology: other Condition: stable Disposition: floor Operative Findings: A time out was performed and the chest x-ray was reviewed, the appropriate side was confirmed and marked. My hands were washed immediately prior to the procedure. I wore a surgical cap, mask with protective eyewear, sterile gown and sterile gloves throughout the procedure. The patient was prepped and draped in a sterile manner using chlorhexidine scrub after the appropriate level was percussed and confirmed by ultrasound. 1% lidocaine was used to anesthesize the skin, subcutaneous tissue, superior aspect of the rib periosteum and parietal pleura. A finder needle was then introduced over the superior aspect of the rib to locate the pleural fluid; 2colored fluid was aspirated at a depth of approximately 2 cm. A 10-blade scalpel was used to eyad the skin at the insertion site. The [id number] needle was then introduced through the skin incision into the pleural space using negative aspiration pressure and the red colometric indicator to confirm appropriate positioning of the needle. The thoracentesis catheter was then threaded without difficulty. 1800 ml of turbid colored fluid was removed without difficulty. The catheter was then removed. No immediate complications were noted during the procedure. A post-procedure chest x-ray is pending at the time of this note. The fluid will not be sent for studies. Estimated blood loss is 0cc
[2022-12-24] MEDS: THIAMINE 200 MG in SODIUM CHLORIDE 0.9% 100 ML IVPB SCH ×2 (09:56→20:39)
[2022-12-24] MEDS: FLUDROCORTISONE 0.1 MG TAB PO SCH (09:57)
[2022-12-24] MEDS: METOPROLOL SUCCINATE (ER) 25 MG TAB.ER.24H PO SCH ×2 (09:58→20:40)
[2022-12-24] MEDS: PANTOPRAZOLE 40 MG/10 ML VIAL IVP SCH ×2 (09:58→20:39)
[2022-12-24] MEDS: RIVASTIGMINE TARTRATE 3 MG PO SCH ×2 (09:58→20:39)
[2022-12-24] MEDS: SPIRONOLACTONE 25 MG TAB PO SCH (09:58)
[2022-12-24] MEDS: FUROSEMIDE 40 MG TAB PO SCH (09:58)
[2022-12-24] MEDS: NYSTATIN 100,000 UNIT/GM POWD 15 GM TOPICAL SCH (09:59)
--- NOTE | 2022-12-24 11:50 | XR ---
EXAMINATION TYPE: XR chest 2V DATE OF EXAM: 12/24/2022 10:36 AM CLINICAL INDICATION:Male, 82 years old with history of thoracentesis; [facility] COMPARISON: 12/22/2022 and before TECHNIQUE: XR chest 2V Frontal and lateral views of the chest. FINDINGS: Lines/Tubes: EKG leads overlie the chest. No indwelling lines are seen. Lungs/Pleura: Continued improved aeration of the lungs with decreased bibasilar pleural/parenchymal o pacities, with minimal residual. No new infiltrate or pneumothorax detected. Pulmonary vascularity: Unremarkable. Heart/mediastinum: Stable cardiomediastinal silhouette. Heart size upper normal. Tortuous partially c alcified aorta. Musculoskeletal: Mild degenerative changes without acute osseous abnormality evident. Mild asymmetric elevation right hemidiaphragm. Other findings: None IMPRESSION: Continued improved aeration of the lungs, with decreased bibasilar pleural/parenchymal opacities and minimal residual. Findings likely represent decreasing pleural effusions and atelectasis.
[2022-12-24 11:51] LABS: Glucose,Whole Blood 242 mg/dL (70-110)
--- NOTE | 2022-12-24 13:48 | P.PN ---
Subjective Progress Note Date: 12/24/22 Principal diagnosis: UTI Patient is a 82-year-old male with multiple comorbidities in this patient who recently was admitted to the hospital did have extensive cellulitis of the pelvic area and culture positive for MRSA and Pseudomonas, Presenting to hospital with weakness and has been diagnosed with UTI, patient is status post right-sided thoracocentesis on 12/22/2022 with removal of 2000 mL of turbid fluid, the patient is status post left-sided thoracocentesis on 12/25/2019 with removal of 1800 mL of turbid fluid On todays evaluation that is 12/24/2022, the patient remains to be afebrile, the patient is breathing comfortably on 2 L nasal cannula oxygen and denies any shortness of breath, the patient denies any chest pain or cough, patient denies Abdominal pain and no nausea/vomiting or diarrhea Patient white count is 7.47, creatinine is 1.1 as of yesterday lab draw today, CRP 0.70, pleural fluid was bloody only 804 WBC, urine cultures with Proteus mirabilis that is sensitive pathogen Objective - Vital Signs Vital signs: Vital Signs Temp 97.7 F 12/24/22 07:22 Pulse 77 12/24/22 12:05 Resp 16 12/24/22 12:05 BP 123/67 12/24/22 07:22 Pulse Ox 96 12/24/22 07:22 FiO2 Intake & Output 12/23/22 12/24/22 12/24/22 18:59 06:59 18:59 Weight 68.039 kg Other: Voiding Method Urinal Urinal Diaper Diaper # Voids 5 4 - Exam GENERAL DESCRIPTION: An elderly male lying in bed in no distress RESPIRATORY SYSTEM: Unlabored breathing , decreased breath sounds at bases HEART: S1 S2 regular rate and rhythm , ABDOMEN: Soft , no tenderness EXTREMITIES: No edema feet - Labs CBC & Chem 7: 12/23/22 06:40 12/23/22 06:40 Labs: Abnormal Lab Results - Last 24 Hours (Table) 12/23/22 12/23/22 12/24/22 Range/Units 16:31 20:58 06:24 POC Glucose (mg/dL) 213 H 184 H 162 H (70-110) mg/dL 12/24/22 Range/Units 11:48 POC Glucose (mg/dL) 242 H (70-110) mg/dL Microbiology - Last 24 Hours (Table) 12/22/22 11:50 Gram Stain - Preliminary Pleural Fluid Body Fluid Culture - Preliminary Assessment and Plan (1) UTI (urinary tract infection) Current Visit: Yes Status: Acute Code(s): N39.0 - URINARY TRACT INFECTION, SITE NOT SPECIFIED SNOMED Code(s): 83584573 Plan: 1patient presented to the hospital with weakness not feeling well recently completed course of antibiotic for UTI as well as pneumonia patient did have urinary symptom positive and likely concerning for symptomatic urinary tract infection in this patient has previously grown Pseudomonas we will need to cover for resistant gram-negative pathogen clinically doubt pneumonia as he did not have significant respiratory symptoms and is not requiring any supplemental oxygen 2-ultrasound of the kidneys , shows abnormality of the left kidney , patient has been evaluated by urology and possible benign cyst per there documentation 3- patient has shown clinical improvement and will continue Rocephin 2 g daily and monitor clinical course closely at the bedside questions and concerns were answered Dictation was produced using [employer] dictation software. please excuse any grammatical, word or spelling errors. Time with Patient: Less than 30
--- NOTE | 2022-12-24 14:22 | P.PN ---
Subjective Progress Note Date: 12/24/22 patient is 82-year-old gentleman with past medical history significant for atrial fibrillation, hypertension, hyperlipidemia who presented to the ER for generalized weakness for the last 5 days. Patient caregiver is his , who stated the patient just completed 3 weeks of antibiotics for pneumonia. Patient noticed that this morning patient was much more weaker and lethargic. She notices the patient was cold at home. No documented fevers at home. No complaint of shortness of breath. Complaining of productive cough, phlegm is whitish in color. Patient follows up with wound care clinic for follow-up on left heel ulcer, is healing well. Because of generalized weakness and lethargy, patient was brought to the ER Initial lab work done in the ER showed WBC 7.7, hemoglobin 14.5, platelet count 320, sodium 140, potassium 3.8, BUN 60, creatinine 1.31, calcium 10.4 UA showed large amount of leukocyte esterase, WBC more than 182 Chest x-ray done in the ER showed bilateral lower lobe infiltrates and small effusions which were stable Patient admitted to medicine service 12/17. Patient seen and examined. Lab work done showed WBC 9.6, hemoglobin 12, platelet count 303, sodium 137, potassium 3.6, BUN 43, creatinine 1.09. Currently on room air, denies any cough. Denies any shortness of breath 12/18. Patient seen and examined. Ultrasound chest order for bilateral pleural effusions, pulmonology will consider thoracentesis if significant 12/19/22: Patient seen and evaluated bedside, at bedside as well overnight patient was delirious, plan discussed, continue to monitor, CBC and basic metabolic panel reviewed 12/20/22: Patient seen and evaluated bedside, accompanied with , CT head x- ray imaging reviewed no fracture noted continue to maintain maximum safety precautions. Yesterday in the afternoon patient had a fall unwitnessed bed alarm in place. Blood work reviewed CBC and serum chemistry reviewed CRP 2.9. Patient was started on thiamine, however when benzodiazepine 12/21/22: Vision seen and evaluated bedside, at bedside as well. Patient is alert and oriented to person and situation. Patient does complain of nausea and an episode of vomiting.. Started on IV Protonix. 1 dose of Solu-Medrol given secondary to wheezing. Pulmonary medicine following plan for thoracentesis during this hospitalization 12/22/22: Patient seen and evaluated bedside, patient accompanied by mentation has improved, sitting at bedside, mentation improved continue patient on IV Rocephin, continue thiamine, Eliquis continued to remain on hold in anticipation of thoracentesis 12/23. Patient seen and examined. Patient underwent thoracentesis yesterday on right side with removal of 2000 mL of fluid. Pulmonology might do thoracentesis of left side today. at the bedside, all questions answered 12/24. Patient seen and examined. Patient underwent left-sided thoracentesis removal of 1.8 L of fluid. at the bedside, states he feels much better compared to yesterday. REVIEW OF SYSTEMS: CONSTITUTIONAL: No fever, no malaise,. CARDIOVASCULAR: No chest pain, no palpitations, no syncope. PULMONARY: No shortness of breath, no cough, GASTROINTESTINAL: No diarrhea, no nausea, no vomiting, no abdominal pain. NEUROLOGICAL: No headaches, no weakness, PHYSICAL EXAMINATION: GENERAL: The patient is alert and oriented x3, not in any acute distress. Well developed, well nourished. HEENT: Pupils are round and equally reacting to light. EOMI. No scleral icterus. No conjunctival pallor. Normocephalic, atraumatic. No pharyngeal erythema. No thyromegaly. CARDIOVASCULAR: S1 and S2 present. No murmurs, rubs, or gallops. PULMONARY: Diminished breath sounds at the bases bilaterally ABDOMEN: Soft, nontender, nondistended, normoactive bowel sounds. No palpable organomegaly. MUSCULOSKELETAL: No joint swelling or deformity. EXTREMITIES: 1+ pitting edema lower extremities bilaterally, left heel bandaged seen NEUROLOGICAL: Gross neurological examination did not reveal any focal deficits. SKIN: No rashes. Assessment and plan Urinary tract infection Proteus mirabilis UTI Acute metabolic encephalopathy with delirium Complex right renal cysts Bilateral pleural effusion Generalized weakness Paroxysmal atrial fibrillation anticoagulated with Eliquis Hypertension Hyperlipidemia Diabetes mellitus Chronic obstructive pulmonary disease BPH/urinary retention Dementia In regards to UTI , continue Rocephin, ID following In regards to bilateral pleural effusion, underwent right-sided thoracentesis removal of 2000 mL of fluid on 12/22, underwent left-sided thoracentesis on 12/24 with removal of 1.8 L. Pulmonology following Regards to atrial fibrillation continue patient on metoprolol, resume Eliquis In regards to history of dementia continue patient on Exelon Continue breathing treatments, Ultrasound of kidneys done showed exogenous complex appearance of the kidneys with underlying sepsis Patient seen by urology, pulmonary medicine, infectious disease Labs and medication were reviewed.. Continue same treatment. Continue with symptomatic treatment. Resume home medication. Monitor labs and vitals. DVT and GI prophylaxis. Further recommendations as per clinical course of the patient Dictation was produced using [employer] dictation software. please excuse any grammatical, word or spelling errors. Objective - Vital Signs Vital signs: Vital Signs Temp 97.7 F 12/24/22 07:22 Pulse 77 12/24/22 12:05 Resp 16 12/24/22 12:05 BP 123/67 12/24/22 07:22 Pulse Ox 96 12/24/22 07:22 FiO2 Intake & Output 12/23/22 12/24/22 12/24/22 18:59 06:59 18:59 Weight 68.039 kg Other: Voiding Method Urinal Urinal Diaper Diaper # Voids 5 4 3 - Labs CBC & Chem 7: 12/23/22 06:40 12/23/22 06:40 Labs: Abnormal Lab Results - Last 24 Hours (Table) 12/23/22 12/23/22 12/24/22 Range/Units 16:31 20:58 06:24 POC Glucose (mg/dL) 213 H 184 H 162 H (70-110) mg/dL 12/24/22 Range/Units 11:48 POC Glucose (mg/dL) 242 H (70-110) mg/dL Microbiology - Last 24 Hours (Table) 12/22/22 11:50 Gram Stain - Preliminary Pleural Fluid Body Fluid Culture - Preliminary
[2022-12-24 16:37] LABS: Glucose,Whole Blood 150 mg/dL (70-110)
[2022-12-24 20:24] LABS: Glucose,Whole Blood 194 mg/dL (70-110)
[2022-12-24] MEDS: MONTELUKAST 10 MG TAB PO SCH (20:40)
[2022-12-24] MEDS: ATORVASTATIN 20 MG TAB PO SCH (20:40)
[2022-12-24] MEDS: APIXABAN 5 MG TAB PO SCH (20:40)
[2022-12-24] MEDS: MIRTAZAPINE 15 MG TAB PO SCH (20:41)
[2022-12-25 06:08] LABS: Glucose,Whole Blood 167 mg/dL (70-110)
[2022-12-25] MEDS: INSULIN ASPART (NovoLOG) 100 UNIT/ML VIAL SQ SCH ×4 (06:17→20:17)
[2022-12-25] MEDS: IPRATROPIUM-ALBUTEROL 3 ML NEB INHALATION SCH ×3 (08:04→21:14)
[2022-12-25] MEDS: CITALOPRAM HYDROBROMIDE 10 MG TAB PO SCH (08:49)
[2022-12-25] MEDS: APIXABAN 5 MG TAB PO SCH ×2 (08:49→20:17)
[2022-12-25] MEDS: RIVASTIGMINE TARTRATE 3 MG PO SCH ×2 (08:49→20:18)
[2022-12-25] MEDS: FLUDROCORTISONE 0.1 MG TAB PO SCH (08:49)
[2022-12-25] MEDS: NYSTATIN 100,000 UNIT/GM POWD 15 GM TOPICAL SCH (08:49)
[2022-12-25] MEDS: SPIRONOLACTONE 25 MG TAB PO SCH (08:49)
[2022-12-25] MEDS: METOPROLOL SUCCINATE (ER) 25 MG TAB.ER.24H PO SCH ×2 (08:49→20:17)
[2022-12-25] MEDS: FUROSEMIDE 40 MG TAB PO SCH (08:49)
[2022-12-25 11:19] LABS: Glucose,Whole Blood 234 mg/dL (70-110)
[2022-12-25] MEDS: ONDANSETRON 4 MG/2 ML VIAL IVP PRN (12:00)
[2022-12-25] MEDS: PANTOPRAZOLE 40 MG/10 ML VIAL IVP SCH ×2 (12:00→20:18)
[2022-12-25] MEDS: THIAMINE 200 MG in SODIUM CHLORIDE 0.9% 100 ML IVPB SCH ×2 (12:23→20:18)
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
[2022-12-25] MEDS ORDERED: METOCLOPRAMIDE 5 MG/ML 2 ML VIAL IVP STA (13:05)
--- NOTE | 2022-12-25 14:39 | P.PN ---
Subjective Progress Note Date: 12/25/22 patient is 82-year-old gentleman with past medical history significant for atrial fibrillation, hypertension, hyperlipidemia who presented to the ER for generalized weakness for the last 5 days. Patient caregiver is his , who stated the patient just completed 3 weeks of antibiotics for pneumonia. Patient noticed that this morning patient was much more weaker and lethargic. She notices the patient was cold at home. No documented fevers at home. No complaint of shortness of breath. Complaining of productive cough, phlegm is whitish in color. Patient follows up with wound care clinic for follow-up on left heel ulcer, is healing well. Because of generalized weakness and lethargy, patient was brought to the ER Initial lab work done in the ER showed WBC 7.7, hemoglobin 14.5, platelet count 320, sodium 140, potassium 3.8, BUN 60, creatinine 1.31, calcium 10.4 UA showed large amount of leukocyte esterase, WBC more than 182 Chest x-ray done in the ER showed bilateral lower lobe infiltrates and small effusions which were stable Patient admitted to medicine service 12/17. Patient seen and examined. Lab work done showed WBC 9.6, hemoglobin 12, platelet count 303, sodium 137, potassium 3.6, BUN 43, creatinine 1.09. Currently on room air, denies any cough. Denies any shortness of breath 12/18. Patient seen and examined. Ultrasound chest order for bilateral pleural effusions, pulmonology will consider thoracentesis if significant 12/19/22: Patient seen and evaluated bedside, at bedside as well overnight patient was delirious, plan discussed, continue to monitor, CBC and basic metabolic panel reviewed 12/20/22: Patient seen and evaluated bedside, accompanied with , CT head x- ray imaging reviewed no fracture noted continue to maintain maximum safety precautions. Yesterday in the afternoon patient had a fall unwitnessed bed alarm in place. Blood work reviewed CBC and serum chemistry reviewed CRP 2.9. Patient was started on thiamine, however when benzodiazepine 12/21/22: Vision seen and evaluated bedside, at bedside as well. Patient is alert and oriented to person and situation. Patient does complain of nausea and an episode of vomiting.. Started on IV Protonix. 1 dose of Solu-Medrol given secondary to wheezing. Pulmonary medicine following plan for thoracentesis during this hospitalization 12/22/22: Patient seen and evaluated bedside, patient accompanied by mentation has improved, sitting at bedside, mentation improved continue patient on IV Rocephin, continue thiamine, Eliquis continued to remain on hold in anticipation of thoracentesis 12/23. Patient seen and examined. Patient underwent thoracentesis yesterday on right side with removal of 2000 mL of fluid. Pulmonology might do thoracentesis of left side today. at the bedside, all questions answered 12/24. Patient seen and examined. Patient underwent left-sided thoracentesis removal of 1.8 L of fluid. at the bedside, states he feels much better compared to yesterday. 12/25. Patient seen and examined. Complaining of nausea this morning. Currently on 2 L of oxygen. REVIEW OF SYSTEMS: CONSTITUTIONAL: No fever, no malaise,. CARDIOVASCULAR: No chest pain, no palpitations, no syncope. PULMONARY: No shortness of breath, no cough, GASTROINTESTINAL: No diarrhea, no abdominal pain. NEUROLOGICAL: No headaches, no weakness, PHYSICAL EXAMINATION: GENERAL: The patient is alert and oriented x3, not in any acute distress. Well developed, well nourished. HEENT: Pupils are round and equally reacting to light. EOMI. No scleral icterus. No conjunctival pallor. Normocephalic, atraumatic. No pharyngeal erythema. No thyromegaly. CARDIOVASCULAR: S1 and S2 present. No murmurs, rubs, or gallops. PULMONARY: Diminished breath sounds at the bases bilaterally ABDOMEN: Soft, nontender, nondistended, normoactive bowel sounds. No palpable organomegaly. MUSCULOSKELETAL: No joint swelling or deformity. EXTREMITIES: 1+ pitting edema lower extremities bilaterally, left heel bandaged seen NEUROLOGICAL: Gross neurological examination did not reveal any focal deficits. SKIN: No rashes. Assessment and plan Urinary tract infection Proteus mirabilis UTI Acute metabolic encephalopathy with delirium Complex right renal cysts Bilateral pleural effusion Generalized weakness Paroxysmal atrial fibrillation anticoagulated with Eliquis Hypertension Hyperlipidemia Diabetes mellitus Chronic obstructive pulmonary disease BPH/urinary retention Dementia In regards to UTI , continue Rocephin, continue antiemetics, ID following In regards to bilateral pleural effusion, underwent right-sided thoracentesis removal of 2000 mL of fluid on 12/22, underwent left-sided thoracentesis on 12/24 with removal of 1.8 L. Pulmonology following Regards to atrial fibrillation continue patient on metoprolol, Eliquis In regards to history of dementia continue patient on Exelon Continue breathing treatments, Ultrasound of kidneys done showed exogenous complex appearance of the kidneys with underlying sepsis Patient seen by urology, pulmonary medicine, infectious disease Labs and medication were reviewed.. Continue same treatment. Continue with sy mptomatic treatment. Resume home medication. Monitor labs and vitals. DVT and GI prophylaxis. Further recommendations as per clinical course of the patient Dictation was produced using [employer] dictation software. please excuse any grammatical, word or spelling errors. Objective - Vital Signs Vital signs: Vital Signs Temp 97.7 F 12/25/22 14:03 Pulse 66 12/25/22 14:03 Resp 17 12/25/22 14:03 BP 113/70 12/25/22 14:03 Pulse Ox 97 12/25/22 14:03 FiO2 Intake & Output 12/24/22 12/25/22 12/25/22 18:59 06:59 18:59 Output Total 500 Balance -500 Output: Urine 500 Other: Voiding Method Urinal Urinal Diaper # Voids 4 2 # Bowel Movements 3 - Labs CBC & Chem 7: 12/23/22 06:40 12/23/22 06:40 Labs: Abnormal Lab Results - Last 24 Hours (Table) 12/24/22 12/24/22 12/25/22 Range/Units 16:35 20:23 06:06 POC Glucose (mg/dL) 150 H 194 H 167 H (70-110) mg/dL 12/25/22 Range/Units 11:17 POC Glucose (mg/dL) 234 H (70-110) mg/dL Microbiology - Last 24 Hours (Table) 12/22/22 11:50 Gram Stain - Preliminary Pleural Fluid Body Fluid Culture - Preliminary
--- NOTE | 2022-12-25 15:57 | P.PN ---
Subjective Progress Note Date: 12/25/22 Principal diagnosis: UTI Patient is a 82-year-old male with multiple comorbidities in this patient who recently was admitted to the hospital did have extensive cellulitis of the pelvic area and culture positive for MRSA and Pseudomonas, Presenting to hospital with weakness and has been diagnosed with UTI, patient is status post right-sided thoracocentesis on 12/22/2022 with removal of 2000 mL of turbid fluid, the patient is status post left-sided thoracocentesis on 12/25/2019 with removal of 1800 mL of turbid fluid On todays evaluation that is 12/25/2022, the patient denies any fever or chills, the patient is breathing comfortably on 2 L nasal cannula supplemental oxygen, the patient denies any chest pain or cough, patient denies abdominal pain did have an episode of vomiting this afternoon Patient white count is 7.47, creatinine is 1.1 as of 12/23/2022, no lab draw today, CRP 0.70, pleural fluid was bloody only 804 WBC, urine cultures with Proteus mirabilis that is sensitive pathogen Objective - Vital Signs Vital signs: Vital Signs Temp 97.7 F 12/25/22 07:46 Pulse 72 12/25/22 11:40 Resp 18 12/25/22 07:46 BP 124/70 12/25/22 07:46 Pulse Ox 95 12/25/22 08:04 FiO2 Intake & Output 12/24/22 12/25/22 12/25/22 18:59 06:59 18:59 Output Total 500 Balance -500 Output: Urine 500 Other: Voiding Method Urinal Urinal Diaper # Voids 4 # Bowel Movements 3 - Exam GENERAL DESCRIPTION: An elderly male lying in bed in no distress RESPIRATORY SYSTEM: Unlabored breathing , decreased breath sounds at bases HEART: S1 S2 regular rate and rhythm , ABDOMEN: Soft , no tenderness EXTREMITIES: No edema feet - Labs CBC & Chem 7: 12/23/22 06:40 12/23/22 06:40 Labs: Abnormal Lab Results - Last 24 Hours (Table) 12/24/22 12/24/22 12/25/22 Range/Units 16:35 20: 06:06 POC Glucose (mg/dL) 150 H 194 H 167 H (70-110) mg/dL 12/25/22 Range/Units 11:17 POC Glucose (mg/dL) 234 H (70-110) mg/dL Microbiology - Last 24 Hours (Table) 12/22/22 11:50 Gram Stain - Preliminary Pleural Fluid Body Fluid Culture - Preliminary Assessment and Plan (1) UTI (urinary tract infection) Current Visit: Yes Status: Acute Code(s): N39.0 - URINARY TRACT INFECTION, SITE NOT SPECIFIED SNOMED Code(s): 23730279 Plan: 1patient presented to the hospital with weakness not feeling well recently completed course of antibiotic for UTI as well as pneumonia patient did have urinary symptom positive and likely concerning for symptomatic urinary tract infection in this patient has previously grown Pseudomonas we will need to cover for resistant gram-negative pathogen clinically doubt pneumonia as he did not have significant respiratory symptoms and is not requiring any supplemental oxygen 2-ultrasound of the kidneys , shows abnormality of the left kidney , patient has been evaluated by urology and possible benign cyst per there documentation 3- we will continue Rocephin 2 g daily and repeat CBC and CRP with a.m. lab Dictation was produced using [employer] dictation software. please excuse any grammatical, word or spelling errors. Time with Patient: Less than 30
[2022-12-25 17:08] LABS: Glucose,Whole Blood 220 mg/dL (70-110)
[2022-12-25 20:01] LABS: Glucose,Whole Blood 319 mg/dL (70-110)
[2022-12-25] MEDS: ATORVASTATIN 20 MG TAB PO SCH (20:17)
[2022-12-25] MEDS: MIRTAZAPINE 15 MG TAB PO SCH (20:17)
[2022-12-25] MEDS: MONTELUKAST 10 MG TAB PO SCH (20:17)
[2022-12-26 06:10] LABS: Glucose,Whole Blood 166 mg/dL (70-110)
[2022-12-26] MEDS: INSULIN ASPART (NovoLOG) 100 UNIT/ML VIAL SQ SCH ×4 (06:20→21:28)
[2022-12-26] MEDS: PANTOPRAZOLE 40 MG/10 ML VIAL IVP SCH ×2 (08:53→21:29)
[2022-12-26] MEDS: SPIRONOLACTONE 25 MG TAB PO SCH (08:53)
[2022-12-26] MEDS: FUROSEMIDE 40 MG TAB PO SCH (08:53)
[2022-12-26] MEDS: RIVASTIGMINE TARTRATE 3 MG PO SCH ×2 (08:54→21:28)
[2022-12-26] MEDS: FLUDROCORTISONE 0.1 MG TAB PO SCH (08:54)
[2022-12-26] MEDS: METOPROLOL SUCCINATE (ER) 25 MG TAB.ER.24H PO SCH ×2 (08:54→21:28)
[2022-12-26] MEDS: APIXABAN 5 MG TAB PO SCH ×2 (08:54→21:28)
[2022-12-26] MEDS: THIAMINE 200 MG in SODIUM CHLORIDE 0.9% 100 ML IVPB SCH ×2 (09:10→21:29)
[2022-12-26] MEDS: IPRATROPIUM-ALBUTEROL 3 ML NEB INHALATION SCH ×3 (09:16→21:40)
[2022-12-26] MEDS: NYSTATIN 100,000 UNIT/GM POWD 15 GM TOPICAL SCH (09:17)
[2022-12-26 11:32] LABS: Glucose,Whole Blood 252 mg/dL (70-110)
--- NOTE | 2022-12-26 13:25 | P.PN ---
Subjective Progress Note Date: 12/26/22 patient is 82-year-old gentleman with past medical history significant for atrial fibrillation, hypertension, hyperlipidemia who presented to the ER for generalized weakness for the last 5 days. Patient caregiver is his , who stated the patient just completed 3 weeks of antibiotics for pneumonia. Patient noticed that this morning patient was much more weaker and lethargic. She notices the patient was cold at home. No documented fevers at home. No complaint of shortness of breath. Complaining of productive cough, phlegm is whitish in color. Patient follows up with wound care clinic for follow-up on left heel ulcer, is healing well. Because of generalized weakness and lethargy, patient was brought to the ER Initial lab work done in the ER showed WBC 7.7, hemoglobin 14.5, platelet count 320, sodium 140, potassium 3.8, BUN 60, creatinine 1.31, calcium 10.4 UA showed large amount of leukocyte esterase, WBC more than 182 Chest x-ray done in the ER showed bilateral lower lobe infiltrates and small effusions which were stable Patient admitted to medicine service 12/17. Patient seen and examined. Lab work done showed WBC 9.6, hemoglobin 12, platelet count 303, sodium 137, potassium 3.6, BUN 43, creatinine 1.09. Currently on room air, denies any cough. Denies any shortness of breath 12/18. Patient seen and examined. Ultrasound chest order for bilateral pleural effusions, pulmonology will consider thoracentesis if significant 12/19/22: Patient seen and evaluated bedside, at bedside as well overnight patient was delirious, plan discussed, continue to monitor, CBC and basic metabolic panel reviewed 12/20/22: Patient seen and evaluated bedside, accompanied with , CT head x- ray imaging reviewed no fracture noted continue to maintain maximum safety precautions. Yesterday in the afternoon patient had a fall unwitnessed bed alarm in place. Blood work reviewed CBC and serum chemistry reviewed CRP 2.9. Patient was started on thiamine, however when benzodiazepine 12/21/22: Vision seen and evaluated bedside, at bedside as well. Patient is alert and oriented to person and situation. Patient does complain of nausea and an episode of vomiting.. Started on IV Protonix. 1 dose of Solu-Medrol given secondary to wheezing. Pulmonary medicine following plan for thoracentesis during this hospitalization 12/22/22: Patient seen and evaluated bedside, patient accompanied by mentation has improved, sitting at bedside, mentation improved continue patient on IV Rocephin, continue thiamine, Eliquis continued to remain on hold in anticipation of thoracentesis 12/23. Patient seen and examined. Patient underwent thoracentesis yesterday on right side with removal of 2000 mL of fluid. Pulmonology might do thoracentesis of left side today. at the bedside, all questions answered 12/24. Patient seen and examined. Patient underwent left-sided thoracentesis removal of 1.8 L of fluid. at the bedside, states he feels much better compared to yesterday. 12/25. Patient seen and examined. Complaining of nausea this morning. Currently on 2 L of oxygen. 12/26. Patient seen and examined. Nausea has resolved. Denies any chest pain or shortness of breath. Sitting upright in the chair. REVIEW OF SYSTEMS: CONSTITUTIONAL: No fever, no malaise,. CARDIOVASCULAR: No chest pain, no palpitations, no syncope. PULMONARY: No shortness of breath, no cough, GASTROINTESTINAL: No diarrhea, no abdominal pain. NEUROLOGICAL: No headaches, no weakness, PHYSICAL EXAMINATION: GENERAL: The patient is alert and oriented x3, not in any acute distress. Well developed, well nourished. HEENT: Pupils are round and equally reacting to light. EOMI. No scleral icterus. No conjunctival pallor. Normocephalic, atraumatic. No pharyngeal erythema. No thyromegaly. CARDIOVASCULAR: S1 and S2 present. No murmurs, rubs, or gallops. PULMONARY: Diminished breath sounds at the bases bilaterally ABDOMEN: Soft, nontender, nondistended, normoactive bowel sounds. No palpable organomegaly. MUSCULOSKELETAL: No joint swelling or deformity. EXTREMITIES: 1+ pitting edema lower extremities bilaterally, left heel bandaged seen NEUROLOGICAL: Gross neurological examination did not reveal any focal deficits. SKIN: No rashes. Assessment and plan Urinary tract infection Proteus mirabilis UTI Acute metabolic encephalopathy with delirium Complex right renal cysts Bilateral pleural effusion Generalized weakness Paroxysmal atrial fibrillation anticoagulated with Eliquis Hypertension Hyperlipidemia Diabetes mellitus Chronic obstructive pulmonary disease BPH/urinary retention Dementia In regards to UTI , continue Rocephin, continue antiemetics, ID following In regards to bilateral pleural effusion, underwent right-sided thoracentesis removal of 2000 mL of fluid on 12/22, underwent left-sided thoracentesis on 12/24 with removal of 1.8 L. Pulmonology following Regards to atrial fibrillation continue patient on metoprolol, Eliquis In regards to history of dementia continue patient on Exelon Continue breathing treatments, Ultrasound of kidneys done showed exogenous complex appearance of the kidneys with underlying sepsis Patient seen by urology, pulmonary medicine, infectious disease PT and OT recommended rehab, waiting on placement Labs and medication were reviewed.. Continue same treatment. Continue with symptomatic treatment. Resume home medication. Monitor labs and vitals. DVT and GI prophylaxis. Further recommendations as per clinical course of the patient Dictation was produced using [employer] dictation software. please excuse any grammatical, word or spelling errors. Objective - Vital Signs Vital signs: Vital Signs Temp 98.1 F 12/26/22 06:51 Pulse 70 12/26/22 13:18 Resp 18 12/26/22 10:03 BP 124/68 12/26/22 06:51 Pulse Ox 98 12/26/22 09:16 FiO2 Intake & Output 12/25/22 12/26/22 12/26/22 18:59 06:59 18:59 Intake Total 550 Output Total 270 Balance -270 550 Intake: Oral 550 Output: Urine 270 Other: Voiding Method Urinal Urinal Urinal Diaper Diaper # Voids 2 - Labs CBC & Chem 7: 12/23/22 06:40 12/23/22 06:40 Labs: Abnormal Lab Results - Last 24 Hours (Table) 12/25/22 12/25/22 12/26/22 Range/Units 17:05 19:59 06:08 POC Glucose (mg/dL) 220 H 319 H 166 H (70-110) mg/dL 12/26/22 Range/Units 11:30 POC Glucose (mg/dL) 252 H (70-110) mg/dL Microbiology - Last 24 Hours (Table) 12/22/22 11:50 Gram Stain - Final Pleural Fluid Body Fluid Culture - Final
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
[2022-12-26 16:53] LABS: Glucose,Whole Blood 265 mg/dL (70-110)
[2022-12-26 21:11] LABS: Glucose,Whole Blood 202 mg/dL (70-110)
[2022-12-26] MEDS: ATORVASTATIN 20 MG TAB PO SCH (21:28)
[2022-12-26] MEDS: MIRTAZAPINE 15 MG TAB PO SCH (21:28)
[2022-12-26] MEDS: MONTELUKAST 10 MG TAB PO SCH (21:28)
[2022-12-27 05:52] LABS: Glucose,Whole Blood 162 mg/dL (70-110)
[2022-12-27] MEDS: INSULIN ASPART (NovoLOG) 100 UNIT/ML VIAL SQ SCH ×2 (06:37→12:39)
[2022-12-27] MEDS: METOPROLOL SUCCINATE (ER) 25 MG TAB.ER.24H PO SCH (08:32)
[2022-12-27] MEDS: FLUDROCORTISONE 0.1 MG TAB PO SCH (08:32)
[2022-12-27] MEDS: APIXABAN 5 MG TAB PO SCH (08:32)
[2022-12-27] MEDS: PANTOPRAZOLE 40 MG/10 ML VIAL IVP SCH (08:33)
[2022-12-27] MEDS: FUROSEMIDE 40 MG TAB PO SCH (08:33)
[2022-12-27] MEDS: RIVASTIGMINE TARTRATE 3 MG PO SCH (08:33)
[2022-12-27] MEDS: SPIRONOLACTONE 25 MG TAB PO SCH (08:33)
[2022-12-27] MEDS: THIAMINE 200 MG in SODIUM CHLORIDE 0.9% 100 ML IVPB SCH (08:34)
[2022-12-27] MEDS: NYSTATIN 100,000 UNIT/GM POWD 15 GM TOPICAL SCH (08:43)
[2022-12-27] MEDS: IPRATROPIUM-ALBUTEROL 3 ML NEB INHALATION SCH ×2 (08:58→12:06)
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
[2022-12-27 11:34] LABS: Glucose,Whole Blood 252 mg/dL (70-110)
--- NOTE | 2022-12-27 12:49 | P.DS ---
Providers Date of admission: 12/16/22 12:44 Expected date of discharge: 12/27/22 Attending physician: Eze Bradford MD Consults: 12/16/22 13:01 Consult Physician Routine Consulting Provider: Evie Glass Consult Reason/Comments: UTI, pneumonia Do you want consulting provider notified?: Yes 12/17/22 10:40 Consult Physician Routine Consulting Provider: Krzysztof Nunes Consult Reason/Comments: Complex right renal cysts, recurrent UTI Do you want consulting provider notified?: Yes Primary care physician: [facility] Course: Discharge diagnoses; Hospital course; patient is 82-year-old gentleman with past medical history significant for atrial fibrillation, hypertension, hyperlipidemia who presented to the ER for generalized weakness for the last 5 days. Patient caregiver is his , who stated the patient just completed 3 weeks of antibiotics for pneumonia. Patient noticed that this morning patient was much more weaker and lethargic. She notices the patient was cold at home. No documented fevers at home. No complaint of shortness of breath. Complaining of productive cough, phlegm is whitish in color. Patient follows up with wound care clinic for follow-up on left heel ulcer, is healing well. Because of generalized weakness and lethargy, patient was brought to the ER Initial lab work done in the ER showed WBC 7.7, hemoglobin 14.5, platelet count 320, sodium 140, potassium 3.8, BUN 60, creatinine 1.31, calcium 10.4 UA showed large amount of leukocyte esterase, WBC more than 182 Chest x-ray done in the ER showed bilateral lower lobe infiltrates and small effusions which were stable Patient admitted to medicine service 12/17. Patient seen and examined. Lab work done showed WBC 9.6, hemoglobin 12, platelet count 303, sodium 137, potassium 3.6, BUN 43, creatinine 1.09. Currently on room air, denies any cough. Denies any shortness of breath 12/18. Patient seen and examined. Ultrasound chest order for bilateral pleural effusions, pulmonology will consider thoracentesis if significant 12/19/22: Patient seen and evaluated bedside, at bedside as well overnight patient was delirious, plan discussed, continue to monitor, CBC and basic metabolic panel reviewed 12/20/22: Patient seen and evaluated bedside, accompanied with , CT head x- ray imaging reviewed no fracture noted continue to maintain maximum safety precautions. Yesterday in the afternoon patient had a fall unwitnessed bed alarm in place. Blood work reviewed CBC and serum chemistry reviewed CRP 2.9. Patient was started on thiamine, however when benzodiazepine 12/21/22: Vision seen and evaluated bedside, at bedside as well. Patient is alert and oriented to person and situation. Patient does complain of nausea and an episode of vomiting.. Started on IV Protonix. 1 dose of Solu-Medrol given secondary to wheezing. Pulmonary medicine following plan for thoracentesis during this hospitalization 12/22/22: Patient seen and evaluated bedside, patient accompanied by mentation has improved, sitting at bedside, mentation improved continue patient on IV Rocephin, continue thiamine, Eliquis continued to remain on hold in anticipation of thoracentesis 12/23. Patient seen and examined. Patient underwent thoracentesis yesterday on right side with removal of 2000 mL of fluid. Pulmonology might do thoracentesis of left side today. at the bedside, all questions answered 12/24. Patient seen and examined. Patient underwent left-sided thoracentesis removal of 1.8 L of fluid. at the bedside, states he feels much better compared to yesterday. 12/25. Patient seen and examined. Complaining of nausea this morning. Currently on 2 L of oxygen. 12/26. Patient seen and examined. Nausea has resolved. Denies any chest pain or shortness of breath. Sitting upright in the chair. 12/27. Patient seen and examined. ID recommended discharging on oral Ceftin for 5 days. Being discharged to rehab in stable condition PHYSICAL EXAMINATION: GENERAL: The patient is alert and oriented 2-3, not in any acute distress. Well developed, well nourished. HEENT: Pupils are round and equally reacting to light. EOMI. No scleral icterus. No conjunctival pallor. Normocephalic, atraumatic. No pharyngeal erythema. No thyromegaly. CARDIOVASCULAR: S1 and S2 present. No murmurs, rubs, or gallops. PULMONARY: Chest is clear to auscultation, no wheezing or crackles. ABDOMEN: Soft, nontender, nondistended, normoactive bowel sounds. No palpable organomegaly. MUSCULOSKELETAL: No joint swelling or deformity. EXTREMITIES: No cyanosis, clubbing, or pedal edema. NEUROLOGICAL: Gross neurological examination did not reveal any focal deficits. SKIN: No rashes. Dictation was produced using [employer] dictation software. please excuse any grammatical, word or spelling errors. Patient Condition at Discharge: Stable Plan - Discharge Summary Discharge Rx Participant: No New Discharge Prescriptions: New Thiamine [Vitamin B-1] 100 mg PO DAILY 30 Days #30 tablet cefUROXime axetiL [Ceftin] 500 mg PO BID 5 Days #10 tab Continue Montelukast [Singulair] 10 mg PO HS Budesonide/Formoterol Fumarate [Symbicort 160-4.5 Mcg Inhaler] 2 puff INHALATION RT-BID Atorvastatin [Lipitor] 20 mg PO HS Ergocalciferol [Vitamin D2 (1250 Mcg = 20716 Iu)] 1,250 mcg PO FR Mirtazapine 15 mg PO HS Ipratropium-Albuterol Nebulize [Duoneb 0.5 mg-3 mg/3 ml Soln] 3 ml INHALATION RT-Q6H PRN PRN Reason: Shortness Of Breath Apixaban [Eliquis] 5 mg PO BID Nystatin 100,000 Unit/gm Powd [Mycostatin Powder] 1 applic TOPICAL TID Sennosides-Docusate Sodium [Senokot-S] 1 tab PO BID Ceramides 1,3,6-II [Cerave Moisturizing] 1 applic TOPICAL BID Citalopram Hydrobromide [Citalopram HBr] 10 mg PO DIRECTED traMADol HCl [Ultram] 50 mg PO Q8H PRN 3 Days #9 tab PRN Reason: Mild To Moderate Pain (1 - 6) Metoprolol Succinate (ER) [Toprol XL] 25 mg PO BID Rivastigmine Tartrate [Exelon] 3 mg PO BID Furosemide [Lasix] 40 mg PO DAILY Spironolactone 25 mg PO DAILY glipiZIDE/METFORMIN HCL [glipiZIDE/METFORMIN HCL 2.5-500 mg] 1 tab PO BID metOLazone [Zaroxolyn] 2.5 mg PO DIRECTED Fludrocortisone [Florinef] 0.1 mg PO DAILY Discontinued Atorvastatin [Lipitor] 20 mg PO HS Discharge Medication List Atorvastatin [Lipitor] 20 mg PO HS 12/12/18 [History] Budesonide/Formoterol Fumarate [Symbicort 160-4.5 Mcg Inhaler] 2 puff INHALATION RT-BID 12/12/18 [History] Montelukast [Singulair] 10 mg PO HS 12/12/18 [History] Ergocalciferol [Vitamin D2 (1250 Mcg = 63676 Iu)] 1,250 mcg PO FR 04/25/21 [History] Metoprolol Succinate (ER) [Toprol XL] 25 mg PO BID 04/25/21 [History] Mirtazapine 15 mg PO HS 03/03/22 [History] Rivastigmine Tartrate [Exelon] 3 mg PO BID 03/03/22 [History] Apixaban [Eliquis] 5 mg PO BID 07/18/22 [History] Furosemide [Lasix] 40 mg PO DAILY 07/18/22 [History] Ipratropium-Albuterol Nebulize [Duoneb 0.5 mg-3 mg/3 ml Soln] 3 ml INHALATION RT-Q6H PRN 07/18/22 [History] Nystatin 100,000 Unit/gm Powd [Mycostatin Powder] 1 applic TOPICAL TID 08/29/22 [History] Spironolactone 25 mg PO DAILY 08/29/22 [History] glipiZIDE/METFORMIN HCL [glipiZIDE/METFORMIN HCL 2.5-500 mg] 1 tab PO BID 08/29/22 [History] Ceramides 1,3,6-II [Cerave Moisturizing] 1 applic TOPICAL BID 12/16/22 [History] Citalopram Hydrobromide [Citalopram HBr] 10 mg PO DIRECTED 12/16/22 [History] Fludrocortisone [Florinef] 0.1 mg PO DAILY 12/16/22 [History] Sennosides-Docusate Sodium [Senokot-S] 1 tab PO BID 12/16/22 [History] metOLazone [Zaroxolyn] 2.5 mg PO DIRECTED 12/16/22 [History] cefUROXime axetiL [Ceftin] 500 mg PO BID 5 Days #10 tab 12/26/22 [Rx] Thiamine [Vitamin B-1] 100 mg PO DAILY 30 Days #30 tablet 12/27/22 [Rx] traMADol HCl [Ultram] 50 mg PO Q8H PRN 3 Days #9 tab 10/31/23 [Rx] Follow up Appointment(s)/Referral(s): Poli Ceron MD [Primary Care Provider] - 1-2 days Krzysztof Nunes MD [STAFF PHYSICIAN] - 2 Weeks Discharge Disposition: TRANSFER TO SNF/ECF
--- NOTE | 2022-12-27 15:11 | P.PN ---
Subjective Progress Note Date: 12/26/22 Principal diagnosis: UTI Patient is a 82-year-old male with multiple comorbidities in this patient who recently was admitted to the hospital did have extensive cellulitis of the pelvic area and culture positive for MRSA and Pseudomonas, Presenting to hospital with weakness and has been diagnosed with UTI, patient is status post right-sided thoracocentesis on 12/22/2022 with removal of 2000 mL of turbid fluid, the patient is status post left-sided thoracocentesis on 12/25/2019 with removal of 1800 mL of turbid fluid On todays evaluation that is 12/26/2022, the patient continues to be afebrile , the patient is breathing comfortably on 2 L nasal cannula oxygen and denies any shortness of breath, the patient denies any chest pain or cough, patient denies abdominal pain and no nausea/vomiting or diarrhea Patient white count is 7.47, creatinine is 1.1 as of 12/23/2022, no lab draw today, CRP 0.70, pleural fluid was bloody only 804 WBC, urine cultures with Proteus mirabilis that is sensitive pathogen Objective - Vital Signs Vital signs: Vital Signs Temp 98.1 F 12/26/22 06:51 Pulse 68 12/26/22 09:31 Resp 18 12/26/22 10:03 BP 124/68 12/26/22 06:51 Pulse Ox 98 12/26/22 09:16 FiO2 Intake & Output 12/25/22 12/26/22 12/26/22 18:59 06:59 18:59 Intake Total 550 Output Total 270 Balance -270 550 Intake: Oral 550 Output: Urine 270 Other: Voiding Method Urinal Urinal Urinal Diaper Diaper # Voids 2 - Exam GENERAL DESCRIPTION: An elderly male lying in bed in no distress RESPIRATORY SYSTEM: Unlabored breathing , decreased breath sounds at bases HEART: S1 S2 regular rate and rhythm , ABDOMEN: Soft , no tenderness EXTREMITIES: No edema feet - Labs CBC & Chem 7: 12/23/22 06:40 12/23/22 06:40 Labs: Abnormal Lab Results - Last 24 Hours (Table) 12/25/22 12/25/22 12/26/22 Range/Units 17:05 19:59 06:08 POC Glucose (mg/dL) 220 H 319 H 166 H (70-110) mg/dL 12/26/22 Range/Units 11:30 POC Glucose (mg/dL) 252 H (70-110) mg/dL Microbiology - Last 24 Hours (Table) 12/22/22 11:50 Gram Stain - Final Pleural Fluid Body Fluid Culture - Final Assessment and Plan (1) UTI (urinary tract infection) Current Visit: Yes Status: Acute Code(s): N39.0 - URINARY TRACT INFECTION, SITE NOT SPECIFIED SNOMED Code(s): 96029289 Plan: 1patient presented to the hospital with weakness not feeling well recently completed course of antibiotic for UTI as well as pneumonia patient did have urinary symptom positive and likely concerning for symptomatic urinary tract infection in this patient has previously grown Pseudomonas we will need to cover for resistant gram-negative pathogen clinically doubt pneumonia as he did not have significant respiratory symptoms and is not requiring any supplemental oxygen 2-ultrasound of the kidneys , shows abnormality of the left kidney , patient has been evaluated by urology and possible benign cyst per there documentation 3- patient will continue Rocephin 2 g daily and plan to finish therapy with oral Ceftin Dictation was produced using [employer] dictation software. please excuse any grammatical, word or spelling errors. Time with Patient: Less than 30
--- NOTE | 2022-12-27 15:12 | P.PN ---
Subjective Progress Note Date: 12/27/22 Principal diagnosis: UTI Patient is a 82-year-old male with multiple comorbidities in this patient who recently was admitted to the hospital did have extensive cellulitis of the pelvic area and culture positive for MRSA and Pseudomonas, Presenting to hospital with weakness and has been diagnosed with UTI, patient is status post right-sided thoracocentesis on 12/22/2022 with removal of 2000 mL of turbid fluid, the patient is status post left-sided thoracocentesis on 12/25/2019 with removal of 1800 mL of turbid fluid On todays evaluation that is 12/27/2022, the patient remains to be afebrile , the patient is breathing comfortably on 2 L nasal cannula supplemental oxygen, the patient denies any chest pain and no significant cough or sputum production, patient denies abdominal pain and no nausea/vomiting or diarrhea Patient white count is 7.47, creatinine is 1.1 as of 12/23/2022, no lab draw today, CRP is 0.70, urine cultures with Proteus mirabilis that is sensitive pathogen Objective - Vital Signs Vital signs: Vital Signs Temp 97.6 F 12/27/22 07:13 Pulse 72 12/27/22 12:16 Resp 18 12/27/22 08:00 BP 110/65 12/27/22 08:30 Pulse Ox 94 L 12/27/22 09:00 FiO2 Intake & Output 12/26/22 12/27/22 12/27/22 18:59 06:59 18:59 Intake Total 700 Output Total 850 Balance 700 -850 Intake: Oral 700 Output: Urine 850 Other: Voiding Method Urinal Urinal Toilet Diaper Diaper Urinal # Voids 2 2 # Bowel Movements 1 - Exam GENERAL DESCRIPTION: An elderly male lying in bed in no distress RESPIRATORY SYSTEM: Unlabored breathing , decreased breath sounds at bases HEART: S1 S2 regular rate and rhythm , ABDOMEN: Soft , no tenderness EXTREMITIES: No edema feet - Labs CBC & Chem 7: 12/23/22 06:40 12/23/22 06:40 Labs: Abnormal Lab Results - Last 24 Hours (Table) 12/26/22 12/26/22 12/27/22 Range/Units 16:51 21:10 05:50 POC Glucose (mg/dL) 265 H 202 H 162 H (70-110) mg/dL 10/31/23 Range/Units 11:31 POC Glucose (mg/dL) 252 H (70-110) mg/dL Assessment and Plan (1) UTI (urinary tract infection) Current Visit: Yes Status: Acute Code(s): N39.0 - URINARY TRACT INFECTION, SITE NOT SPECIFIED SNOMED Code(s): 74763880 Plan: 1patient presented to the hospital with weakness not feeling well recently completed course of antibiotic for UTI as well as pneumonia patient did have urinary symptom positive and likely concerning for symptomatic urinary tract infection in this patient has previously grown Pseudomonas we will need to cover for resistant gram-negative pathogen clinically doubt pneumonia as he did not have significant respiratory symptoms and is not requiring any supplemental oxygen 2-ultrasound of the kidneys , shows abnormality of the left kidney , patient has been evaluated by urology and possible benign cyst per there documentation 3- patient has shown clinical improvement and will finish therapy with oral Ceftin x 5 days on discharge discussed with the admitting physician Dictation was produced using [employer] dictation software. please excuse any grammatical, word or spelling errors. Time with Patient: Less than 30
[2022-12-27 16:02] VITALS: BP 109/61; PULSE 61; RESP 19; TEMP 98.1
== END 2022-12-27 15:40 | DRG 689 ==
LOC: EC 07:44 → 4SSUR 12:44
PROVIDERS: ADMIT Internal Medicine; ATTEND Internal Medicine
PROC: 0W993ZZ Drainage of Right Pleural Cavity, Percutaneous Approach (ICD-10-PCS; principal; 2022-12-22)
PROC: 0W9B3ZZ Drainage of Left Pleural Cavity, Percutaneous Approach (ICD-10-PCS; 2022-12-24)
DX: N39.0 Urinary tract infection, site not specified (principal); G93.41 Metabolic encephalopathy; J96.01 Acute respiratory failure with hypoxia; K76.6 Portal hypertension; J98.11 Atelectasis; J90 Pleural effusion, not elsewhere classified; F05 Delirium due to known physiological condition; W19.XXXA Unspecified fall, initial encounter; Y92.239 Unspecified place in hospital as the place of occurrence of the external cause; H91.90 Unspecified hearing loss, unspecified ear; L89.622 Pressure ulcer of left heel, stage 2; E78.5 Hyperlipidemia, unspecified; R32 Unspecified urinary incontinence; N28.1 Cyst of kidney, acquired; N20.0 Calculus of kidney; I50.9 Heart failure, unspecified; I11.0 Hypertensive heart disease with heart failure; Z11.52 Encounter for screening for COVID-19; F03.90 Unspecified dementia, unspecified severity, without behavioral disturbance, psychotic disturbance, mood disturbance, and anxiety; B96.4 Proteus (mirabilis) (morganii) as the cause of diseases classified elsewhere; I48.0 Paroxysmal atrial fibrillation; J44.9 Chronic obstructive pulmonary disease, unspecified; R74.01 Elevation of levels of liver transaminase levels; E11.9 Type 2 diabetes mellitus without complications; N40.1 Benign prostatic hyperplasia with lower urinary tract symptoms; R33.8 Other retention of urine; R53.81 Other malaise; Z88.5 Allergy status to narcotic agent; Z88.8 Allergy status to other drugs, medicaments and biological substances; Z86.14 Personal history of Methicillin resistant Staphylococcus aureus infection; Z87.891 Personal history of nicotine dependence; Z87.440 Personal history of urinary (tract) infections; Z87.01 Personal history of pneumonia (recurrent); Z79.899 Other long term (current) drug therapy; Z79.52 Long term (current) use of systemic steroids; Z79.51 Long term (current) use of inhaled steroids; Z79.01 Long term (current) use of anticoagulants; Z71.3 Dietary counseling and surveillance
CPT/HCPCS: 36415; 70450; 71045; 71046; 72040; 76604; 76770; 80048; 80053; 81001; 82945; 83605; 83615; 83880; 84145; 84157; 85025; 85027; 85610; 85730; 86140; 87040; 87070; 87077; 87086; 87186; 87205; 87636; 88108; 88305; 89050; 93005; 94640; 94760; 96361; 96365; 96366; 96367; 99285

== ENCOUNTER 2023-01-04 14:08 | Observation (INO) | payer MEDICARE ==
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
[2023-01-04 14:59] LABS: Basophils % (A) 0 %; Eosinophils # (A) 0.5 k/uL (0-0.7); Eosinophils % (A) 4 %; HCT 40.8 % (39.0-53.0); HGB 13.2 gm/dL (13.0-17.5); Lymphocytes # (A) 0.8 k/uL (1.0-4.8); Lymphocytes % (A) 7 %; MCH 30.1 pg (25.0-35.0); MCHC 32.4 g/dL (31.0-37.0); MCV 92.9 fL (80.0-100.0); Mean Platelet Volume 7.7; Monocytes # (A) 0.5 k/uL (0-1.0); Monocytes % (A) 4 %; Neutrophils # (A) 10.6 k/uL (1.3-7.7); Neutrophils % (A) 85 %; Platelet Count 477 k/uL (150-450); RDW 14.1 % (11.5-15.5); WBC 12.4 k/uL (3.8-10.6)
[2023-01-04 15:15] LABS: ALT 47 U/L (4-49); AST 36 U/L (17-59); African American GFR (CKD) 63 (>60 ml/min/1.73 sqM); Albumin 3.4 g/dL (3.5-5.0); Alkaline Phosphatase 104 U/L (38-126); Anion Gap 12 mmol/L; Blood Urea Nitrogen 31 mg/dL (9-20); Calcium 10.8 mg/dL (8.4-10.2); Carbon Dioxide 26 mmol/L (22-30); Chloride 100 mmol/L (98-107); Glucose 159 mg/dL (74-99); Non-African American GFR(CKD) 54 (>60 ml/min/1.73 sqM); Potassium 4.4 mmol/L (3.5-5.1); Sodium 138 mmol/L (137-145); Total Bilirubin 0.4 mg/dL (0.2-1.3); Total Protein 6.5 g/dL (6.3-8.2)
--- NOTE | 2023-01-04 15:16 | XR ---
EXAMINATION TYPE: XR chest 2V DATE OF EXAM: 01/04/2023 COMPARISON: 12/24/2022 HISTORY: 82 year-old male shortness of breath TECHNIQUE: PA and lateral views FINDINGS: Heart normal size. Aorta and pulmonary vasculature within normal limits. Mild hyperinflation. Mild in terstitial prominence. Small bilateral pleural effusions with a patchy bibasilar opacities. IMPRESSION: 1. Correlate for COPD with superimposed CHF/pulmonary vascular congestion. 2. Small bilateral pleural effusions with adjacent atelectasis and/or consolidation.
[2023-01-04 15:19] LABS: Partial Thromboplastin Time 23.5 sec (22.0-30.0); Prothrombin Time 10.5 sec (10.0-12.5)
[2023-01-04 15:24] LABS: NT-Pro-B-Type Natriuretic Pept 576 pg/mL
[2023-01-04] MEDS ORDERED: FUROSEMIDE 10 MG/ML 4 ML VIAL IV STA (16:16)
[2023-01-04] MEDS ORDERED: NALOXONE 0.4 MG/ML 1 ML VIAL IV PRN (16:17)
[2023-01-04] MEDS ORDERED: IPRATROPIUM-ALBUTEROL 3 ML NEB INHALATION PRN (21:05)
[2023-01-04] MEDS ORDERED: DEXTROSE 50% SYRINGE 50 ML IVP PRN ×2 (21:08)
[2023-01-04 21:23] LABS: Glucose,Whole Blood 174 mg/dL (70-110)
[2023-01-04] MEDS: MIRTAZAPINE 15 MG TAB PO SCH (22:09)
[2023-01-04] MEDS: METOPROLOL SUCCINATE (ER) 25 MG TAB.ER.24H PO SCH (22:09)
[2023-01-04] MEDS: MONTELUKAST 10 MG TAB PO SCH (22:09)
[2023-01-04] MEDS: ATORVASTATIN 20 MG TAB PO SCH (22:09)
[2023-01-04] MEDS: APIXABAN 5 MG TAB PO SCH (22:09)
[2023-01-04] MEDS: FUROSEMIDE 40 MG TAB PO SCH (22:09)
[2023-01-04] MEDS: NYSTATIN 100,000 UNIT/GM POWD 15 GM TOPICAL SCH (22:10)
[2023-01-05 06:16] LABS: Glucose,Whole Blood 160 mg/dL (70-110)
[2023-01-05] MEDS: INSULIN ASPART (NovoLOG) 100 UNIT/ML VIAL SQ SCH ×4 (06:18→20:42)
[2023-01-05] MEDS: SYMBICORT 160-4.5 MCG INHALER INHALATION SCH ×2 (08:35→20:09)
[2023-01-05] MEDS ORDERED: DAPAGLIFLOZIN PROPANEDIOL 10 MG TABLET PO SCH (09:00)
[2023-01-05] MEDS: APIXABAN 5 MG TAB PO SCH ×2 (09:12→20:28)
[2023-01-05] MEDS: FUROSEMIDE 40 MG TAB PO SCH (09:12)
[2023-01-05] MEDS: NYSTATIN 100,000 UNIT/GM POWD 15 GM TOPICAL SCH ×3 (09:12→20:29)
[2023-01-05] MEDS: SPIRONOLACTONE 25 MG TAB PO SCH (09:12)
[2023-01-05] MEDS: SENNOSIDES-DOCUSATE SODIUM 1 EACH TAB PO SCH ×2 (09:12→20:28)
[2023-01-05] MEDS: METOPROLOL SUCCINATE (ER) 25 MG TAB.ER.24H PO SCH ×2 (09:12→20:28)
[2023-01-05] MEDS: THIAMINE 100 MG TAB PO SCH (09:12)
[2023-01-05] MEDS: FLUDROCORTISONE 0.1 MG TAB PO SCH (09:12)
[2023-01-05] MEDS: RIVASTIGMINE TARTRATE 3 MG PO SCH ×2 (09:13→20:28)
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
--- NOTE | 2023-01-05 09:42 | P.DS ---
Providers Date of admission: 01/04/23 16:17 Attending physician: Franky Cordova Consults: 01/04/23 16:17 Consult Physician Routine Consulting Provider: Elder Hanley Consult Reason/Comments: CHF Do you want consulting provider notified?: Yes Primary care physician: [facility] Course: Patient is a pleasant 82-year-old male who was recently admitted to the hospital had a prolonged hospital is a she was treated for bilateral pleural effusions chronic diastolic dysfunction heart failure and was subsequently discharged to subacute rehabitation patient was discharged recently discharged from subacute rehab. Patient was on 40 mg of Lasix along with metolazone at the time of discharge from the hospital, patient started having bilateral leg swelling because of which Lasix dose was increased to 40 twice a day at the [facility]. Patient was seen at the wound care clinic where he had some cyanosis along with pedal edema because of which are patient was given IV dose of Lasix was subsequently admitted to the hospital. Patient is presently euvolemic. Patient is hypotensive patient is on fludrocortisone for that patient has diastolic dysfunction elderly male. Patient denied any fever chills orthopnea paroxysmal nocturnal dyspnea patient denied any significant cough patient was recently treated for urinary tract infection. Chest x-ray showed mild pleural effusions but much better than previous auscultation mild pulmonary vascular congestion also much better compared to previous hospitalization. There is no evidence of pneumonia and as per the chest x-ray proBNP is around 500 patient was evaluated by cardiology patient at this point of time is not in heart failure exacerbation because of which IV Lasix was discontinued patient was resumed on oral regimen for chronic diastolic dysfunction.. REVIEW OF SYSTEMS: CONSTITUTIONAL: No fever, no malaise, no fatigue. HEENT: No recent visual problems or hearing problems. Denied any sore throat. CARDIOVASCULAR: No chest pain, orthopnea, PND, no palpitations, no syncope. PULMONARY: No shortness of breath, no cough, no hemoptysis. GASTROINTESTINAL: No diarrhea, no nausea, no vomiting, no abdominal pain. NEUROLOGICAL: No headaches, no weakness, no numbness. HEMATOLOGICAL: Denies any bleeding or petechiae. GENITOURINARY: Denies any burning micturition, frequency, or urgency. MUSCULOSKELETAL/RHEUMATOLOGICAL: Denies any joint pain, swelling, or any muscle pain. ENDOCRINE: Denies any polyuria or polydipsia. The rest of the 14-point review of systems is negative. PHYSICAL EXAMINATION: GENERAL: The patient is alert and oriented x3, not in any acute distress. Well developed, well nourished. HEENT: Pupils are round and equally reacting to light. EOMI. No scleral icterus. No conjunctival pallor. Normocephalic, atraumatic. No pharyngeal erythema. No thyromegaly. CARDIOVASCULAR: S1 and S2 present. No murmurs, rubs, or gallops. PULMONARY: Chest is clear to auscultation, no wheezing or crackles. ABDOMEN: Soft, nontender, nondistended, normoactive bowel sounds. No palpable organomegaly. MUSCULOSKELETAL: No joint swelling or deformity. EXTREMITIES: No cyanosis, clubbing, or mild bilateral ankle edema NEUROLOGICAL: Gross neurological examination did not reveal any focal deficits. SKIN: No rashes. Assessment and plan -Congestive heart failure chronic diastolic dysfunction with mild acute exacerb ation which improved at this time patient was resumed on home regimen. Patient is occasionally lightheaded and patient blood pressure is low normal. Singular Take His Diuretic History Is Slightly Tweak His Diuretic Therapy and Change His Diuretics to Lasix 40 Mg in the Morning 20 Mg in the Evening and Continue Metolazone and Close Follow-Up with PCP. Patient Is 82-year-old Male with Chronic Diastolic Dysfunction, and Is Also on Fludrocortisone Which Complicates His Volume Status and Is Very Hard to Manage and Will Need Close Follow-Up with PCP to Avoid Multiple Hospitalizations. Patient is definitely high risk for readmission because of above-mentioned reasons -Chronic kidney disease with mild acute renal failure prerenal azotemia from ever-changing volume status. Chronic kidney disease stage III secondary to diabetic nephropathy -Type 2 diabetes mellitus patient will be resumed on home regimen consider discontinuation of metformin down the line if his kidney function worsens -Leukocytosis without any evidence of pneumonia at this time will obtain pro- calcitonin level if that's negative patient will be discharged after physical therapy and occupational therapy evaluation and stent have generalized deconditioning PT and OT evaluation -COPD without any acute acceleration [place]-proximal atrial fibrillation patient was resumed on home regimen patient is currently rate controlled -Hyperlipidemia -Hypertension -Benign prostatic hypertrophy If physical therapy doesn't believe patient will lead to subacute rehabilitation and progastrin is negative patient will be discharged today discussed with the his . Patient Condition at Discharge: Stable Plan - Discharge Summary Discharge Rx Participant: No New Discharge Prescriptions: New Furosemide [Lasix] 40 mg PO DAILY tab Furosemide [Lasix] 20 mg PO DAILY #30 tab Continue Montelukast [Singulair] 10 mg PO HS Budesonide/Formoterol Fumarate [Symbicort 160-4.5 Mcg Inhaler] 2 puff INHALATION RT-BID Atorvastatin [Lipitor] 20 mg PO HS Ergocalciferol [Vitamin D2 (1250 Mcg = 82213 Iu)] 1,250 mcg PO FR Mirtazapine 15 mg PO HS Ipratropium-Albuterol Nebulize [Duoneb 0.5 mg-3 mg/3 ml Soln] 3 ml INHALATION RT-Q6H PRN PRN Reason: Shortness Of Breath Apixaban [Eliquis] 5 mg PO BID Nystatin 100,000 Unit/gm Powd [Mycostatin Powder] 1 applic TOPICAL TID Sennosides-Docusate Sodium [Senokot-S] 1 tab PO BID Ceramides 1,3,6-II [Cerave Moisturizing] 1 applic TOPICAL BID Citalopram Hydrobromide [Citalopram HBr] 10 mg PO SUWEFR Thiamine [Vitamin B-1] 100 mg PO DAILY 30 Days #30 tablet Metoprolol Succinate (ER) [Toprol XL] 25 mg PO BID Rivastigmine Tartrate [Exelon] 3 mg PO BID Spironolactone 25 mg PO DAILY glipiZIDE/METFORMIN HCL [glipiZIDE/METFORMIN HCL 2.5-500 mg] 1 tab PO BID metOLazone [Zaroxolyn] 2.5 mg PO TUSA Fludrocortisone [Florinef] 0.1 mg PO DAILY Discontinued Furosemide [Lasix] 40 mg PO DAILY Discharge Medication List Atorvastatin [Lipitor] 20 mg PO HS 12/12/18 [History] Budesonide/Formoterol Fumarate [Symbicort 160-4.5 Mcg Inhaler] 2 puff INHALATION RT-BID 12/12/18 [History] Montelukast [Singulair] 10 mg PO HS 12/12/18 [History] Ergocalciferol [Vitamin D2 (1250 Mcg = 56262 Iu)] 1,250 mcg PO FR 04/25/21 [History] Metoprolol Succinate (ER) [Toprol XL] 25 mg PO BID 04/25/21 [History] Mirtazapine 15 mg PO HS 03/03/22 [History] Rivastigmine Tartrate [Exelon] 3 mg PO BID 03/03/22 [History] Apixaban [Eliquis] 5 mg PO BID 07/18/22 [History] Ipratropium-Albuterol Nebulize [Duoneb 0.5 mg-3 mg/3 ml Soln] 3 ml INHALATION RT-Q6H PRN 07/18/22 [History] Nystatin 100,000 Unit/gm Powd [Mycostatin Powder] 1 applic TOPICAL TID 08/29/22 [History] Spironolactone 25 mg PO DAILY 08/29/22 [History] glipiZIDE/METFORMIN HCL [glipiZIDE/METFORMIN HCL 2.5-500 mg] 1 tab PO BID 08/29/22 [History] Ceramides 1,3,6-II [Cerave Moisturizing] 1 applic TOPICAL BID 12/16/22 [History] Citalopram Hydrobromide [Citalopram HBr] 10 mg PO SUWEFR 12/16/22 [History] Fludrocortisone [Florinef] 0.1 mg PO DAILY 12/16/22 [History] Sennosides-Docusate Sodium [Senokot-S] 1 tab PO BID 12/16/22 [History] metOLazone [Zaroxolyn] 2.5 mg PO TUSA 12/16/22 [History] Thiamine [Vitamin B-1] 100 mg PO DAILY 30 Days #30 tablet 12/27/22 [Rx] Furosemide [Lasix] 20 mg PO DAILY #30 tab 01/05/23 [Rx] Furosemide [Lasix] 40 mg PO DAILY tab 01/05/23 [Rx] Follow up Appointment(s)/Referral(s): Poli Ceron MD [Primary Care Provider] - 3 Days Discharge Disposition: HOME WITH HOME HEALTH SERVICES
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
[2023-01-05] MEDS ORDERED: ONDANSETRON 4 MG/2 ML VIAL IVP STA (11:02)
[2023-01-05] MEDS ORDERED: PANTOPRAZOLE 40 MG/10 ML VIAL IVP SCH (11:15)
[2023-01-05 12:26] LABS: Glucose,Whole Blood 173 mg/dL (70-110)
[2023-01-05] MEDS ORDERED: METOCLOPRAMIDE 5 MG/ML 2 ML VIAL IVP PRN (12:35)
[2023-01-05] MEDS: ZINC OXIDE PASTE (Z-GUARD) 1 APPLIC APPLIC TOPICAL SCH ×2 (13:15→20:28)
[2023-01-05] MEDS ORDERED: FUROSEMIDE 20 MG TAB PO SCH (16:00)
[2023-01-05 17:56] LABS: Glucose,Whole Blood 268 mg/dL (70-110)
[2023-01-05] MEDS: ONDANSETRON 4 MG/2 ML VIAL IVP PRN (18:02)
[2023-01-05] MEDS: MONTELUKAST 10 MG TAB PO SCH (20:28)
[2023-01-05] MEDS: ATORVASTATIN 20 MG TAB PO SCH (20:28)
[2023-01-05] MEDS: MIRTAZAPINE 15 MG TAB PO SCH (20:28)
[2023-01-05] MEDS: PANTOPRAZOLE 40 MG/10 ML VIAL IVP SCH (20:28)
[2023-01-05 20:36] LABS: Glucose,Whole Blood 267 mg/dL (70-110)
[2023-01-06] MEDS: ONDANSETRON 4 MG/2 ML VIAL IVP PRN (00:49)
[2023-01-06 03:24] VITALS: TEMP 97.6
[2023-01-06 05:35] LABS: Glucose,Whole Blood 153 mg/dL (70-110)
[2023-01-06] MEDS: INSULIN ASPART (NovoLOG) 100 UNIT/ML VIAL SQ SCH ×2 (05:37→13:36)
[2023-01-06] MEDS: METOPROLOL SUCCINATE (ER) 25 MG TAB.ER.24H PO SCH (08:25)
[2023-01-06] MEDS: SENNOSIDES-DOCUSATE SODIUM 1 EACH TAB PO SCH (08:25)
[2023-01-06] MEDS: FLUDROCORTISONE 0.1 MG TAB PO SCH (08:25)
[2023-01-06] MEDS: THIAMINE 100 MG TAB PO SCH (08:25)
[2023-01-06] MEDS: APIXABAN 5 MG TAB PO SCH (08:25)
[2023-01-06] MEDS: NYSTATIN 100,000 UNIT/GM POWD 15 GM TOPICAL SCH (08:25)
[2023-01-06] MEDS: PANTOPRAZOLE 40 MG/10 ML VIAL IVP SCH (08:25)
[2023-01-06] MEDS: SPIRONOLACTONE 25 MG TAB PO SCH (08:26)
[2023-01-06] MEDS: RIVASTIGMINE TARTRATE 3 MG PO SCH (08:26)
[2023-01-06] MEDS: ZINC OXIDE PASTE (Z-GUARD) 1 APPLIC APPLIC TOPICAL SCH (08:28)
[2023-01-06] MEDS ORDERED: CITALOPRAM HYDROBROMIDE 10 MG TAB PO SCH (09:00)
[2023-01-06] MEDS ORDERED: ERGOCALCIFEROL 1,250 MCG (50,000 IU) CAPSULE PO SCH (09:00)
[2023-01-06] MEDS ORDERED: FUROSEMIDE 40 MG TAB PO SCH (09:00)
[2023-01-06] MEDS: SYMBICORT 160-4.5 MCG INHALER INHALATION SCH (09:07)
[2023-01-06 09:14] VITALS: BP 97/50; PULSE 77; RESP 25
--- NOTE | 2023-01-06 10:08 | P.PN ---
Subjective HISTORY OF PRESENT ILLNESS: This is a 82-year-old male with a past medical history significant for COPD, paroxysmal atrial fibrillation, hypertension, hyperlipidemia, congestive heart failure, and lymphedema. Patient follows in the office with Dr. Welsh. We have been asked to see the patient in consultation for congestive heart failure. Patient examined at the bedside. Patient is somewhat confused the time of examination and is unsure why he is in the hospital. According to the ER physician note, the patient was sent to the hospital for increased lower extremity swelling from his nursing facility. At the time of examination, the patient denies chest pain or pressure. He denies shortness of breath. He is laying flat in bed comfortably on room air with oxygen saturations greater than 92%. Vital signs are stable. Blood pressure 96/90. * EKG reveals sinus mechanism with PVCs. No signs of acute ischemia. * Chest xray correlate for COPD with superimposed CHF/pulmonary vascular congestion. Small bilateral pleural effusions with adjacent atelectasis and/or consolidation * Laboratory data: Troponin negative 1. ProBNP 576. * Current home cardiac medications include Lasix 40 mg in the morning and 20 mg in the afternoon, Lipitor 20 mg at night, Eliquis 5 mg twice a day, Florinef 0.1 mg daily, lactone 25 mg daily Zaroxolyn 2.5 mg on Monday and Monday, and metoprolol succinate 25 mg twice a day * Most recent echocardiogram obtained in February 2022 revealed ejection fraction 55%, mild MR * Cardiac catheterization history: May 2021 revealing mild CAD with 20-30% proximal LAD stenosis and normal left-sided filling pressures 01/06/2023 Patient examined this morning at the bedside. Patient denies chest pain or pressure. He denies shortness of breath. Vital signs are stable. Patient has improvement in his lower extremity edema today compared to yesterday. Patients Farxiga was discontinued yesterday as patient has been unable to tolerate this medication in the past due to nausea. PHYSICAL EXAM: VITAL SIGNS: Reviewed. GENERAL: Well-developed in no acute distress. HEENT: Head is normocephalic. Pupils are equal, round. Sclerae anicteric. Mucous membranes of the mouth are moist. Neck supple. No JVD or thyromegaly LUNGS: Respirations even and unlabored. Lungs essentially clear to auscultation bilaterally. HEART: Regular rate and rhythm. S1 and S2 heard. ABDOMEN: Soft. Nondistended. Nontender. EXTREMITIES: Normal range of motion. No clubbing or cyanosis. Peripheral pulses intact. Minimal lower extremity edema NEUROLOGIC: Awake and alert. Oriented x 3. ASSESSMENT: Chronic congestive heart failure with preserved ejection fraction, not in acute exacerbation Paroxysmal atrial fibrillation Hypertension Hyperlipidemia History of lymphedema COPD PLAN: Continue home cardiac medications Patient is currently stable for discharge from a cardiac perspective We will sign off. Please reconsult if needed. Nurse practitioner note has been reviewed by physician. Signing provider agrees with the documented findings, assessment, and plan of care. Objective - Vital Signs Vital signs: Vital Signs Temp 97.6 F 01/06/23 07:00 Pulse 77 01/06/23 07:00 Resp 25 H 01/06/23 07:00 BP 97/50 01/06/23 07:00 Pulse Ox 90 L 01/06/23 07:00 FiO2 Intake & Output 01/05/23 01/06/23 01/06/23 18:59 06:59 18:59 Intake Total 118 118 Output Total 300 Balance 118 -300 118 Intake: Oral 118 118 Output: Urine 300 Other: Voiding Method Urinal Urinal Diaper Diaper # Voids 1 - Labs CBC & Chem 7: 01/04/23 14:56 01/04/23 14:56 Labs: Abnormal Lab Results - Last 24 Hours (Table) 01/05/23 01/05/23 01/05/23 Range/Units 12:00 12:24 17:54 POC Glucose (mg/dL) 173 H 268 H (70-110) mg/dL Procalcitonin 0.18 H (0.02-0.09) ng/mL 01/05/23 01/06/23 Range/Units 20:29 05:33 POC Glucose (mg/dL) 267 H 153 H (70-110) mg/dL Procalcitonin (0.02-0.09) ng/mL
[2023-01-06 12:35] LABS: Glucose,Whole Blood 154 mg/dL (70-110)
--- NOTE | 2023-01-06 18:16 | P.DS ---
Providers Date of admission: 01/04/23 16:17 Expected date of discharge: 01/06/23 Attending physician: Franky Cordova Primary care physician: [facility] Course: Patient is a pleasant 82-year-old male who was recently admitted to the hospital had a prolonged hospital is a she was treated for bilateral pleural effusions chronic diastolic dysfunction heart failure and was subsequently discharged to subacute rehabitation patient was discharged recently discharged from subacute rehab. Patient was on 40 mg of Lasix along with metolazone at the time of discharge from the hospital, patient started having bilateral leg swelling because of which Lasix dose [facility]. Patient was [facility] at the wound care clinic where he had some cyanosis along with pedal edema because of which are patient was given IV dose of Lasix was subsequently admitted to the hospital. Patient is presently euvolemic. Patient is hypotensive patient is on fludrocortisone for that patient has diastolic dysfunction elderly male. Patient denied any fever chills orthopnea paroxysmal nocturnal dyspnea patient denied any significant cough patient was recently treated for urinary tract infection. Chest x-ray showed mild pleural effusions but much better than previous auscultation mild pulmonary vascular congestion also much better compared to previous hospitalization. There is no evidence of pneumonia and as per the chest x-ray proBNP is around 500 patient was evaluated by cardiology patient at this point of time is not in heart failure exacerbation because of which IV Lasix was discontinued patient was resumed on oral regimen for chronic diastolic dysfunction.. Patient Condition at Discharge: Stable Plan - Discharge Summary Discharge Rx Participant: No New Discharge Prescriptions: New Furosemide [Lasix] 40 mg PO DAILY tab Furosemide [Lasix] 20 mg PO DAILY #30 tab Continue Montelukast [Singulair] 10 mg PO HS Budesonide/Formoterol Fumarate [Symbicort 160-4.5 Mcg Inhaler] 2 puff INHALATION RT-BID Atorvastatin [Lipitor] 20 mg PO HS Ergocalciferol [Vitamin D2 (1250 Mcg = 13256 Iu)] 1,250 mcg PO FR Mirtazapine 15 mg PO HS Ipratropium-Albuterol Nebulize [Duoneb 0.5 mg-3 mg/3 ml Soln] 3 ml INHALATION RT-Q6H PRN PRN Reason: Shortness Of Breath Apixaban [Eliquis] 5 mg PO BID Nystatin 100,000 Unit/gm Powd [Mycostatin Powder] 1 applic TOPICAL TID Sennosides-Docusate Sodium [Senokot-S] 1 tab PO BID Ceramides 1,3,6-II [Cerave Moisturizing] 1 applic TOPICAL BID Citalopram Hydrobromide [Citalopram HBr] 10 mg PO SUWEFR Thiamine [Vitamin B-1] 100 mg PO DAILY 30 Days #30 tablet Metoprolol Succinate (ER) [Toprol XL] 25 mg PO BID Rivastigmine Tartrate [Exelon] 3 mg PO BID Spironolactone 25 mg PO DAILY glipiZIDE/METFORMIN HCL [glipiZIDE/METFORMIN HCL 2.5-500 mg] 1 tab PO BID metOLazone [Zaroxolyn] 2.5 mg PO TUSA Fludrocortisone [Florinef] 0.1 mg PO DAILY Discontinued Furosemide [Lasix] 40 mg PO DAILY Discharge Medication List Atorvastatin [Lipitor] 20 mg PO HS 12/12/18 [History] Budesonide/Formoterol Fumarate [Symbicort 160-4.5 Mcg Inhaler] 2 puff INHALATION RT-BID 12/12/18 [History] Montelukast [Singulair] 10 mg PO HS 12/12/18 [History] Ergocalciferol [Vitamin D2 (1250 Mcg = 21731 Iu)] 1,250 mcg PO FR 04/25/21 [History] Metoprolol Succinate (ER) [Toprol XL] 25 mg PO BID 04/25/21 [History] Mirtazapine 15 mg PO HS 03/03/22 [History] Rivastigmine Tartrate [Exelon] 3 mg PO BID 03/03/22 [History] Apixaban [Eliquis] 5 mg PO BID 07/18/22 [History] Ipratropium-Albuterol Nebulize [Duoneb 0.5 mg-3 mg/3 ml Soln] 3 ml INHALATION RT-Q6H PRN 07/18/22 [History] Nystatin 100,000 Unit/gm Powd [Mycostatin Powder] 1 applic TOPICAL TID 08/29/22 [History] Spironolactone 25 mg PO DAILY 08/29/22 [History] glipiZIDE/METFORMIN HCL [glipiZIDE/METFORMIN HCL 2.5-500 mg] 1 tab PO BID 08/29/22 [History] Ceramides 1,3,6-II [Cerave Moisturizing] 1 applic TOPICAL BID 12/16/22 [History] Citalopram Hydrobromide [Citalopram HBr] 10 mg PO SUWEFR 12/16/22 [History] Fludrocortisone [Florinef] 0.1 mg PO DAILY 12/16/22 [History] Sennosides-Docusate Sodium [Senokot-S] 1 tab PO BID 12/16/22 [History] metOLazone [Zaroxolyn] 2.5 mg PO TUSA 12/16/22 [History] Thiamine [Vitamin B-1] 100 mg PO DAILY 30 Days #30 tablet 12/27/22 [Rx] Furosemide [Lasix] 20 mg PO DAILY #30 tab 01/05/23 [Rx] Furosemide [Lasix] 40 mg PO DAILY tab 01/05/23 [Rx] Follow up Appointment(s)/Referral(s): Poli Ceron MD [Primary Care Provider] - 01/11/23 4:15 pm [facility] Visiting Nurse, [NON-STAFF] - 1 Week Discharge Disposition: HOME WITH HOME HEALTH SERVICES
[2023-01-07] MEDS ORDERED: metOLazone 2.5 MG TAB PO SCH (09:00)
== END 2023-01-06 15:27 | disposition home health service (06) ==
LOC: EC 14:08 → 6NMEDSUR 16:17
PROVIDERS: ADMIT Hospitalist; ATTEND Hospitalist
DX: I13.0 Hypertensive heart and chronic kidney disease with heart failure and stage 1 through stage 4 chronic kidney disease, or unspecified chronic kidney disease (principal); I50.32 Chronic diastolic (congestive) heart failure; N17.9 Acute kidney failure, unspecified; N18.30 Chronic kidney disease, stage 3 unspecified; D72.829 Elevated white blood cell count, unspecified; J90 Pleural effusion, not elsewhere classified; I48.0 Paroxysmal atrial fibrillation; J44.9 Chronic obstructive pulmonary disease, unspecified; E11.22 Type 2 diabetes mellitus with diabetic chronic kidney disease; E78.5 Hyperlipidemia, unspecified; N40.0 Benign prostatic hyperplasia without lower urinary tract symptoms; Z87.891 Personal history of nicotine dependence; Z79.51 Long term (current) use of inhaled steroids; Z79.01 Long term (current) use of anticoagulants; Z79.52 Long term (current) use of systemic steroids; Z79.84 Long term (current) use of oral hypoglycemic drugs; Z79.899 Other long term (current) drug therapy; Z88.5 Allergy status to narcotic agent
CPT/HCPCS: 96376 ×2; 96372 ×2; 96375; 96374; 99284; 36415; 94640 ×3; 93005; 97530; 97162; 97166; 83880; 80053; 84484; 85025; 85610; 85730; 83036; 84145; 71046; G0378 ×3; J1940; J2765; J2405 ×2; C9113 ×2

== ENCOUNTER → 2023-01-25 | Outpatient (CLI) | payer MEDICARE ==
[2023-01-26 03:04] LABS: Basophils # (A) 0.12 X 10*3/uL (0.00-0.10); Eosinophils # (A) 0.62 X 10*3/uL (0.04-0.35); Eosinophils % (A) 5.1 %; HCT 40.3 % (39.6-50.0); Lymphocytes # (A) 0.93 X 10*3/uL (0.90-5.00); Lymphocytes % (A) 7.7 %; MCH 29.6 pg (27.0-32.0); MCHC 32.3 g/dL (32.0-37.0); MCV 91.8 FL (80.0-97.0); Mean Platelet Volume 11.1 FL (9.5-12.2); Monocytes # (A) 1.06 X 10*3/uL (0.20-1.00); Monocytes % (A) 8.8 %; NRBC Per 100 WBC 0 X 10*3/uL (0.00-0.01); Neutrophils # (A) 9.29 X 10*3/uL (1.80-7.70); Platelet Count 421 X 10*3/uL (140-440); RBC 4.39 X 10*6/uL (4.40-5.60); RDW 14.6 % (11.5-14.5); WBC 12.07 X 10*3/uL (4.50-10.00)
[2023-01-26 03:17] LABS: ALT 34 U/L (10-49); AST 26 U/L (14-35); Albumin 3.5 g/dL (3.8-4.9); Albumin/Globulin Ratio 1.25 Ratio (1.60-3.17); Alkaline Phosphatase 95 U/L (41-126); BUN/Creat Ratio 30.64 Ratio (12.00-20.00); Blood Urea Nitrogen 42.9 mg/dL (9.0-27.0); Calcium 11.1 mg/dL (8.7-10.3); Carbon Dioxide 23.2 mmol/L (21.6-31.8); Chloride 99 mmol/L (96-109); Globulin 2.8 g/dL (1.6-3.3); Glucose 162 mg/dL (70-110); Magnesium 1.9 mg/dL (1.5-2.4); Potassium 4.5 mmol/L (3.5-5.5); Sodium 139 mmol/L (135-145); Total Bilirubin <0.2 mg/dL (0.3-1.2); Total Protein 6.3 g/dL (6.2-8.2)
== END | disposition home or self-care (01) ==
LOC: LABWHC1 14:56
PROVIDERS: ATTEND Internal Medicine Geriatric Medicine
DX: I50.9 Heart failure, unspecified (principal)
CPT/HCPCS: 36415; 80053; 83735; 85025

== ENCOUNTER → 2023-02-13 | Outpatient (CLI) | payer MEDICARE ==
--- NOTE | 2023-02-13 15:33 | XR ---
EXAMINATION TYPE: XR chest 2V DATE OF EXAM: 02/13/2023 COMPARISON: 01/04/2023 TECHNIQUE: PA and lateral views submitted. HISTORY: Cough FINDINGS: Bilateral consolidation and small effusion. Mild central interstitial pattern. Atherosclerotic change aorta. Diffuse osteopenia with arthropathy shoulders. No pneumothorax. Underlying COPD. IMPRESSION: 1. Bilateral lower lobe infiltrate and small pleural effusion. Stable.
== END | disposition home or self-care (01) ==
LOC: RADXRMAIN 14:28
PROVIDERS: ATTEND Internal Medicine Critical Care Medicine
DX: J90 Pleural effusion, not elsewhere classified (principal); J18.9 Pneumonia, unspecified organism; R91.8 Other nonspecific abnormal finding of lung field
CPT/HCPCS: 71046

== ENCOUNTER → 2023-04-10 | Outpatient (CLI) | payer MEDICARE ==
--- NOTE | 2023-04-10 15:41 | XR ---
EXAMINATION TYPE: XR chest 2V DATE OF EXAM: 04/10/2023 12:17 PM CLINICAL INDICATION:Male, 83 years old with history of J44.9 COPD; [facility] COMPARISON: Chest radiographs from 02/13/2023. TECHNIQUE: XR chest 2V Frontal and lateral views of the chest. FINDINGS: Lungs/Pleura: No evidence of focal consolidation or pneumothorax. Blunting of the costophrenic angles is present. Pulmonary vascularity: Pulmonary vascular congestion. Heart/mediastinum: Cardiomediastinal silhouette is enlarged and stable. Musculoskeletal: No acute osseous pathology. IMPRESSION: Cardiomegaly bilateral pleural effusions. Correlate with BNP for congestive heart failure.
== END | disposition home or self-care (01) ==
LOC: RADXRMAIN 11:59
PROVIDERS: ATTEND Internal Medicine Geriatric Medicine
DX: J44.9 Chronic obstructive pulmonary disease, unspecified (principal); J90 Pleural effusion, not elsewhere classified; I50.9 Heart failure, unspecified
CPT/HCPCS: 71046

== ENCOUNTER → 2023-04-19 | Outpatient (CLI) | payer MEDICARE ==
[2023-04-19 20:09] LABS: BUN/Creat Ratio 35.59 Ratio (12.00-20.00); Blood Urea Nitrogen 60.5 mg/dL (9.0-27.0); Calcium 11.1 mg/dL (8.7-10.3); Carbon Dioxide 26.1 mmol/L (21.6-31.8); Chloride 96 mmol/L (96-109); Glucose 240 mg/dL (70-110); Magnesium 1.8 mg/dL (1.5-2.4); Potassium 4.4 mmol/L (3.5-5.5); Sodium 140 mmol/L (135-145)
[2023-04-19 20:59] LABS: NT-Pro-B-Type Natriuretic Pept 632 pg/mL (0-450)
== END | disposition home or self-care (01) ==
LOC: LABWHC1 13:37
PROVIDERS: ATTEND Internal Medicine Clinical Cardiac Electrophysiology
DX: I50.32 Chronic diastolic (congestive) heart failure (principal)
CPT/HCPCS: 36415; 80048; 83735; 83880

== ENCOUNTER → 2023-05-10 | Outpatient (CLI) | payer MEDICARE ==
--- NOTE | 2023-05-10 17:06 | XR ---
EXAMINATION TYPE: XR chest 2V DATE OF EXAM: 05/10/2023 4:32 PM CLINICAL INDICATION:Male, 83 years old with history of I509 CHF, NYHA CLASS II; [facility] COMPARISON: Chest radiographs from 04/10/2023 TECHNIQUE: XR chest 2V Frontal and lateral views of the chest. FINDINGS: Lungs/Pleura: No evidence of focal consolidation or pneumothorax. Blunting of the costophrenic angles is present. Pulmonary vascularity: Pulmonary vascular congestion. Heart/mediastinum: Cardiomediastinal silhouette is enlarged and stable. Musculoskeletal: No acute osseous pathology. IMPRESSION: Cardiomegaly, pulmonary vascular congestion and bilateral pleural effusions. Correlate with BNP for c ongestive heart failure.
== END | disposition home or self-care (01) ==
LOC: RADXRMAIN 16:14
PROVIDERS: ATTEND Nurse Practitioner Family
DX: J90 Pleural effusion, not elsewhere classified (principal); I50.9 Heart failure, unspecified; I51.7 Cardiomegaly; R09.89 Other specified symptoms and signs involving the circulatory and respiratory systems
CPT/HCPCS: 71046

== ENCOUNTER → 2023-07-06 | Outpatient (CLI) | payer MEDICARE ==
--- NOTE | 2023-07-06 11:57 | XR ---
EXAMINATION TYPE: XR chest 2V DATE OF EXAM: 07/06/2023 11:52 AM CLINICAL INDICATION:Male, 83 years old with history of pneumonia; [facility] COMPARISON: Chest radiographs from 05/10/2023. TECHNIQUE: XR chest 2V Frontal and lateral views of the chest. FINDINGS: Lungs/Pleura interstitial lung prominence.: No evidence of focal consolidation or pneumothorax. Blunt ing of the costophrenic angles is present. Pulmonary vascularity: Pulmonary vascular congestion. Heart/mediastinum: Cardiomediastinal silhouette is enlarged and stable. Musculoskeletal: No acute osseous pathology. IMPRESSION: 1. Focal airspace consolidation definitively visualized. 2. Cardiomegaly, pulmonary vascular congestion and bilateral pleural effusions. Correlate with BNP f or congestive heart failure.
--- NOTE | 2023-07-07 09:23 | US ---
EXAMINATION TYPE: US arterial LE single level DATE OF EXAM: 07/06/2023 10:22 AM CLINICAL INDICATION: Male, 83 years old with history of I73.9 PAD; PAD. Discoloration bilateral feet, blue. Edema bilateral feet. Thick toenails History of: Smoker: previous Hypertension: yes Diabetic: yes Hyperlipidemia: yes TIA/CVA: no Previous Vascular Surgery: no TN: no Vascular Ulcers: no Claudication: no Gangrene: no Doppler Waveforms: Right: Triphasic Left: Biphasic Right Brachial Pressure: 114 Left Brachial Pressure: 109 Ankle-Brachial Indices: Right: 1.24 Left: 1.04 (Vessel hardening > 1.4; Normal 0.9 - 1.4, Moderate 0.7 - 0.9, Severe 0.5-0.7) Toe Brachial Indices: Right: 0.48 Left: 0.43 IMPRESSION: 1. Abnormal toe brachial indices suggestive of small vessel arterial disease. 2. Normal ankle-brachial indices.
== END | disposition home or self-care (01) ==
LOC: RADUSWWP 09:49
PROVIDERS: ATTEND Internal Medicine Geriatric Medicine
DX: I73.9 Peripheral vascular disease, unspecified (principal); J90 Pleural effusion, not elsewhere classified; I51.7 Cardiomegaly
CPT/HCPCS: 71046; 93922

== ENCOUNTER → 2023-08-28 | Outpatient (CLI) | payer MEDICARE ==
--- NOTE | 2023-08-28 15:29 | XR ---
EXAMINATION TYPE: XR chest 2V DATE OF EXAM: 08/28/2023 3:06 PM CLINICAL INDICATION:Male, 83 years old with history of I50.9, HEART FAILURE, UNSPECIFIED; [facility] COMPARISON: Chest radiographs from 07/06/2023 TECHNIQUE: XR chest 2V Frontal and lateral views of the chest. FINDINGS: Lungs/Pleura: No evidence of focal consolidation or pneumothorax. Blunting of the costophrenic angles is present. Pulmonary vascularity: Unremarkable. Heart/mediastinum: Cardiomediastinal silhouette is enlarged and stable. Musculoskeletal: No acute osseous pathology. IMPRESSION: Cardiomegaly bilateral pleural effusions.
== END | disposition home or self-care (01) ==
LOC: RADXRMAIN 14:51
PROVIDERS: ATTEND Nurse Practitioner Adult Health
DX: J90 Pleural effusion, not elsewhere classified (principal); I51.7 Cardiomegaly
CPT/HCPCS: 71046

== ENCOUNTER 2023-10-02 03:19 | Inpatient (IN) | payer MEDICARE ==
[2023-10-02 03:28] VITALS: TEMP 98
[2023-10-02 04:10] LABS: Basophils % (A) 1 %; Eosinophils # (A) 0.3 k/uL (0-0.7); Eosinophils % (A) 3 %; HCT 42.5 % (39.0-53.0); HGB 13.6 gm/dL (13.0-17.5); Lymphocytes # (A) 1.7 k/uL (1.0-4.8); Lymphocytes % (A) 18 %; MCH 30.3 pg (25.0-35.0); MCV 94.7 fL (80.0-100.0); Mean Platelet Volume 7.6; Monocytes # (A) 0.6 k/uL (0-1.0); Monocytes % (A) 7 %; Neutrophils # (A) 6.4 k/uL (1.3-7.7); Neutrophils % (A) 70 %; Platelet Count 385 k/uL (150-450); RBC 4.49 m/uL (4.30-5.90); RDW 13.4 % (11.5-15.5)
[2023-10-02 04:14] LABS: Partial Thromboplastin Time 25.7 sec (22.0-30.0)
[2023-10-02 04:21] LABS: ALT 20 U/L (4-49); AST 33 U/L (17-59); African American GFR (CKD) 49 (>60 ml/min/1.73 sqM); Albumin 3.6 g/dL (3.5-5.0); Alkaline Phosphatase 56 U/L (38-126); Anion Gap 7 mmol/L; Blood Urea Nitrogen 46 mg/dL (9-20); Calcium 10.2 mg/dL (8.4-10.2); Carbon Dioxide 29 mmol/L (22-30); Chloride 99 mmol/L (98-107); Glucose 110 mg/dL (74-99); Non-African American GFR(CKD) 42 (>60 ml/min/1.73 sqM); Sodium 135 mmol/L (137-145); Total Bilirubin 0.7 mg/dL (0.2-1.3); Total Protein 6.3 g/dL (6.3-8.2)
[2023-10-02 04:27] LABS: Potassium 3.9 mmol/L (3.5-5.1)
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
[2023-10-02] MEDS: SODIUM CHLORIDE 0.9% 1,000 ML IV SCH (05:19)
[2023-10-02 06:02] VITALS: RESP 20
[2023-10-02 07:04] VITALS: BP 112/71; PULSE 84
[2023-10-03] MEDS ORDERED: IPRATROPIUM-ALBUTEROL 3 ML NEB ONE ×3 (00:01→15:29)
[2023-10-03] MEDS ORDERED: SYMBICORT 160-4.5 MCG INHALER INHALATION ONE ×3 (00:01→11:32)
[2023-10-03] MEDS ORDERED: methylPREDNISolone SOD SUCCI 40 MG/ML 1 ML VIAL ONE ×2 (08:45→18:30)
[2023-10-03] MEDS ORDERED: METOPROLOL TARTRATE 25 MG TAB ONE (08:46)
[2023-10-03] MEDS ORDERED: AZITHROMYCIN 500 MG TAB ONE (08:46)
[2023-10-03] MEDS ORDERED: APIXABAN 5 MG TAB ONE (08:46)
[2023-10-03] MEDS ORDERED: FUROSEMIDE 40 MG TAB ONE (08:46)
[2023-10-03] MEDS ORDERED: SPIRONOLACTONE 25 MG TAB ONE (08:52)
[2023-10-03 21:26] LABS: Glucose,Whole Blood 317 mg/dL (70-110)
[2023-10-04] MEDS ORDERED: INSULIN ASPART (NovoLOG) 100 UNIT/ML VIAL SQ ONE
[2023-10-04] MEDS ORDERED: SYMBICORT 160-4.5 MCG INHALER INHALATION ONE (00:01)
[2023-10-04] MEDS ORDERED: SPIRONOLACTONE 25 MG TAB ONE (08:41)
[2023-10-04] MEDS ORDERED: APIXABAN 5 MG TAB ONE (08:41)
[2023-10-04] MEDS ORDERED: METOPROLOL SUCCINATE (ER) 25 MG TAB.ER.24H PO ONE (08:41)
[2023-10-04] MEDS ORDERED: FUROSEMIDE 40 MG TAB ONE (08:41)
[2023-10-04] MEDS ORDERED: AZITHROMYCIN 500 MG TAB ONE (08:41)
[2023-10-04] MEDS ORDERED: methylPREDNISolone SOD SUCCI 40 MG/ML 1 ML VIAL ONE ×2 (08:41→17:14)
[2023-10-04] MEDS ORDERED: IPRATROPIUM-ALBUTEROL 3 ML NEB ONE ×6 (09:02→15:18)
[2023-10-04] MEDS ORDERED: ZINC OXIDE PASTE (Z-GUARD) 1 APPLIC TOPICAL ONE ×2 (13:03)
[2023-10-04 19:58] LABS: Glucose,Whole Blood 357 mg/dL (70-110)
[2023-10-05] MEDS ORDERED: SYMBICORT 160-4.5 MCG INHALER INHALATION ONE (00:01)
[2023-10-05] MEDS ORDERED: IPRATROPIUM-ALBUTEROL 3 ML NEB ONE ×3 (00:01→15:36)
[2023-10-05] MEDS ORDERED: METOPROLOL SUCCINATE (ER) 25 MG TAB.ER.24H PO ONE ×2 (01:10→08:28)
[2023-10-05] MEDS ORDERED: APIXABAN 5 MG TAB ONE ×2 (01:10→08:28)
[2023-10-05] MEDS ORDERED: methylPREDNISolone SOD SUCCI 40 MG/ML 1 ML VIAL ONE ×2 (01:15→08:28)
[2023-10-05] MEDS ORDERED: INSULIN ASPART (NovoLOG) 100 UNIT/ML VIAL SQ ONE ×3 (01:15→18:05)
[2023-10-05 06:06] LABS: Glucose,Whole Blood 276 mg/dL (70-110)
[2023-10-05] MEDS ORDERED: SPIRONOLACTONE 25 MG TAB ONE (08:28)
[2023-10-05] MEDS ORDERED: FUROSEMIDE 40 MG TAB ONE (08:28)
[2023-10-05] MEDS ORDERED: AZITHROMYCIN 500 MG TAB ONE (08:28)
[2023-10-05 11:23] LABS: Glucose,Whole Blood 232 mg/dL (70-110)
[2023-10-05 16:16] LABS: Glucose,Whole Blood 248 mg/dL (70-110)
--- NOTE | 2023-10-16 09:56 | XR ---
EXAMINATION TYPE: XR chest 2V DATE OF EXAM: 10/02/2023 COMPARISON: 08/28/2023 INDICATION: Difficulty breathing TECHNIQUE: Frontal and lateral views of the chest are obtained. FINDINGS: The heart size is normal. The pulmonary vasculature is normal. Bilateral pleural effusions are present, stable. Some mild atelectasis may be adjacent to the left ba se. There is some developing mild atrophy of the right midlung. Atelectasis and pneumonia could be consid ered. IMPRESSION: 1. Minimal developing infiltrate right mid lung. 2. Stable small bilateral pleural effusions with adjacent atelectasis.
== END 2023-10-05 18:20 | disposition home or self-care (01) | DRG 189 ==
LOC: EC 03:19 → 3SCARD 07:30 → UNDOADMIN 10-05 18:20 → UNDODISIN 10-05 18:20
PROVIDERS: ADMIT Internal Medicine Geriatric Medicine; ATTEND Internal Medicine Geriatric Medicine
DX: J96.01 Acute respiratory failure with hypoxia (principal); I21.A1 Myocardial infarction type 2; J69.0 Pneumonitis due to inhalation of food and vomit; J44.1 Chronic obstructive pulmonary disease with (acute) exacerbation; I31.39 Other pericardial effusion (noninflammatory); N17.9 Acute kidney failure, unspecified; I13.0 Hypertensive heart and chronic kidney disease with heart failure and stage 1 through stage 4 chronic kidney disease, or unspecified chronic kidney disease; I50.32 Chronic diastolic (congestive) heart failure; H91.90 Unspecified hearing loss, unspecified ear; I48.0 Paroxysmal atrial fibrillation; E78.5 Hyperlipidemia, unspecified; E11.22 Type 2 diabetes mellitus with diabetic chronic kidney disease; F03.90 Unspecified dementia, unspecified severity, without behavioral disturbance, psychotic disturbance, mood disturbance, and anxiety; I27.20 Pulmonary hypertension, unspecified; N18.9 Chronic kidney disease, unspecified; N42.9 Disorder of prostate, unspecified; Z86.14 Personal history of Methicillin resistant Staphylococcus aureus infection; Z87.891 Personal history of nicotine dependence; Z82.49 Family history of ischemic heart disease and other diseases of the circulatory system; Z79.52 Long term (current) use of systemic steroids; Z79.01 Long term (current) use of anticoagulants; Z87.01 Personal history of pneumonia (recurrent); Z79.51 Long term (current) use of inhaled steroids; Z79.899 Other long term (current) drug therapy; Z88.8 Allergy status to other drugs, medicaments and biological substances; Z88.5 Allergy status to narcotic agent
CPT/HCPCS: 36415; 71046; 80053; 83880; 84484; 85025; 85610; 85730; 93005; 93306; 94640; 94760; 99285

== ENCOUNTER 2023-10-25 13:15 | Inpatient (IN) | payer MEDICARE ==
[2023-10-25 14:28] LABS: Basophils % (A) 0 %; Eosinophils # (A) 0.3 k/uL (0-0.7); Eosinophils % (A) 2 %; HCT 43.6 % (39.0-53.0); HGB 14.2 gm/dL (13.0-17.5); Lymphocytes # (A) 0.9 k/uL (1.0-4.8); Lymphocytes % (A) 7 %; MCH 31.1 pg (25.0-35.0); MCHC 32.7 g/dL (31.0-37.0); MCV 95.1 fL (80.0-100.0); Mean Platelet Volume 7.9; Monocytes # (A) 0.4 k/uL (0-1.0); Monocytes % (A) 4 %; Neutrophils # (A) 10.5 k/uL (1.3-7.7); Neutrophils % (A) 86 %; Platelet Count 276 k/uL (150-450); RBC 4.59 m/uL (4.30-5.90); RDW 13.5 % (11.5-15.5); WBC 12.2 k/uL (3.8-10.6)
[2023-10-25 14:36] LABS: INR 1.1 (<1.2); Partial Thromboplastin Time 23.6 sec (22.0-30.0); Prothrombin Time 11.5 sec (10.0-12.5)
[2023-10-25 14:40] LABS: ALT 28 U/L (4-49); African American GFR (CKD) 49 (>60 ml/min/1.73 sqM); Anion Gap 6 mmol/L; Blood Urea Nitrogen 48 mg/dL (9-20); Calcium 10.2 mg/dL (8.4-10.2); Carbon Dioxide 28 mmol/L (22-30); Chloride 102 mmol/L (98-107); Creatine Kinase 32 U/L (55-170); Glucose 220 mg/dL (74-99); Magnesium 1.4 mg/dL (1.6-2.3); Non-African American GFR(CKD) 43 (>60 ml/min/1.73 sqM); Sodium 136 mmol/L (137-145); Total Bilirubin 0.6 mg/dL (0.2-1.3); Total Protein 5.7 g/dL (6.3-8.2)
[2023-10-25 14:42] LABS: AST 27 U/L (17-59); Alkaline Phosphatase 63 U/L (38-126); Potassium 3.7 mmol/L (3.5-5.1)
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
--- NOTE | 2023-10-25 15:59 | US ---
EXAMINATION TYPE: US venous doppler duplex LE RT DATE OF EXAM: 10/25/2023 3:13 PM COMPARISON: NONE CLINICAL INDICATION: Male, 83 years old with history of pain; Right lower leg swelling and redness. On blood thinners. SIDE PERFORMED: Right TECHNIQUE: The lower extremity deep venous system is examined utilizing real time linear array sonog alesia with graded compression, doppler sonography and color-flow sonography. VESSELS IMAGED: Common Femoral Vein Deep Femoral Vein Greater Saphenous Vein * Femoral Vein Popliteal Vein Small Saphenous Vein * Proximal Calf Veins (* superficial vessels) Right Leg: Negative for DVT. Swelling seen. Wall thickening seen in popliteal vein. Posterior medi al right knee complex fluid collection = 5.1 x 2.9 x 1.1 cm with possible calcification - 0.7 cm. IMPRESSION: 1. Right lower extremity ultrasound negative for deep venous thrombosis. 2. Right popliteal cyst. 3. Calf region superficial soft tissue swelling and edema
[2023-10-25] MEDS ORDERED: VANCOMYCIN IV PER PHARMACY 1 EACH MISC MISCELLANE PRN (16:19)
[2023-10-25] MEDS ORDERED: PNEUMONIA PROTOCOL UTILIZED 1 EACH MISC PO PRN (16:24)
[2023-10-25] MEDS ORDERED: IPRATROPIUM-ALBUTEROL 3 ML NEB INHALATION PRN (16:24)
--- NOTE | 2023-10-25 17:48 | XR ---
EXAMINATION TYPE: XR chest 2V DATE OF EXAM: 10/25/2023 COMPARISON: 10/02/2023 INDICATION: Short of breath TECHNIQUE: Frontal and lateral views of the chest are obtained. FINDINGS: The heart size is normal. The pulmonary vasculature is normal. Bibasilar infiltrates are present. Drains extend the right upper lung field. These appear greater on the posterior position on the lateral projection. Small to moderate bilateral pleural effusions may b e present.. IMPRESSION: 1. Small to moderate posterior pleural effusions with bibasilar infiltrate. Correlate for atelectasis and pneumonia. Findings have worsened from comparison. Follow-up is recommended.
[2023-10-25] MEDS: PIPERACILLIN-TAZOBACTAM 3.375 GM in SODIUM CHLORIDE 0.9% 100 ML IVPB STA (17:57)
[2023-10-25] MEDS: FUROSEMIDE 10 MG/ML 4 ML VIAL IV STA (17:59)
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
[2023-10-26] MEDS: VANCOMYCIN 1,500 MG in SODIUM CHLORIDE 0.9% 500 ML 500 ML IVPB STA (05:33)
[2023-10-26] MEDS: PIPERACILLIN-TAZOBACTAM 3.375 GM in SODIUM CHLORIDE 0.9% 100 ML IVPB SCH ×2 (05:40→20:20)
[2023-10-26] MEDS: SYMBICORT 160-4.5 MCG INHALER INHALATION SCH (08:14)
[2023-10-26] MEDS: IPRATROPIUM-ALBUTEROL 3 ML NEB INHALATION SCH (08:14)
--- NOTE | 2023-10-26 08:23 | XR ---
EXAMINATION TYPE: XR chest 1V portable DATE OF EXAM: 10/26/2023 4:49 AM CLINICAL INDICATION: Male, 83 years old with history of pneumonia; COMPARISON: Chest radiograph from one day prior. TECHNIQUE: XR chest 1V portable Frontal view of the chest. FINDINGS: Lungs/Pleura: No evidence of focal consolidation or pneumothorax. Blunting of the costophrenic angles is present. Pulmonary vascularity: Pulmonary vascular congestion. Heart/mediastinum: Cardiomediastinal silhouette is prominent in size. Musculoskeletal: No acute osseous pathology. Other findings: None Lines/Tubes: IMPRESSION: Large right small left pleural effusion with pulmonary edema
[2023-10-26] MEDS ORDERED: NON FORMULARY DRUG (Prevagen 1 TAB) PO SCH (09:00)
[2023-10-26] MEDS: methylPREDNISolone SOD SUCCI 40 MG/ML 1 ML VIAL IV SCH (10:33)
[2023-10-26] MEDS: DONEPEZIL 10 MG TAB PO SCH (10:34)
[2023-10-26] MEDS: DAPAGLIFLOZIN PROPANEDIOL 5 MG TABLET PO SCH (10:34)
[2023-10-26] MEDS: FUROSEMIDE 10 MG/ML 4 ML VIAL IV SCH (10:34)
[2023-10-26] MEDS: SPIRONOLACTONE 25 MG TAB PO SCH (10:35)
[2023-10-26] MEDS: APIXABAN 5 MG TAB PO SCH (10:35)
[2023-10-26] MEDS: METOPROLOL SUCCINATE (ER) 25 MG TAB.ER.24H PO SCH (10:45)
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
[2023-10-26] MEDS ORDERED: Magnesium Replacement Protocol 1 EACH MISC MISCELLANE PRN (14:09)
[2023-10-26] MEDS: MAGNESIUM SULFATE-D5W PMX 1 GM in DEXTROSE/WATER 1 100ML.BAG IVPB SCH (15:30)
[2023-10-26] MEDS: CIPROFLOXACIN 0.3% OPHTH SOLN 5 ML BTL BOTH EYES SCH (16:21)
[2023-10-26 17:01] LABS: Glucose,Whole Blood 196 mg/dL (70-110)
[2023-10-26] MEDS: INSULIN ASPART (NovoLOG) 100 UNIT/ML VIAL SQ SCH ×2 (17:48→20:21)
[2023-10-26 20:07] LABS: Glucose,Whole Blood 289 mg/dL (70-110)
[2023-10-26] MEDS: MIRTAZAPINE 15 MG TAB PO SCH (20:21)
[2023-10-26] MEDS: MONTELUKAST 10 MG TAB PO SCH (20:22)
[2023-10-26] MEDS: ATORVASTATIN 20 MG TAB PO SCH (20:22)
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
[2023-10-26] MEDS ORDERED: VANCOMYCIN 1,500 MG in SODIUM CHLORIDE 0.9% 500 ML 500 ML IVPB SCH (23:00)
[2023-10-27 06:15] LABS: Glucose,Whole Blood 210 mg/dL (70-110)
[2023-10-27] MEDS: IPRATROPIUM-ALBUTEROL 3 ML NEB INHALATION SCH (08:26)
[2023-10-27] MEDS: CITALOPRAM HYDROBROMIDE 10 MG TAB PO SCH (08:43)
--- NOTE | 2023-10-27 11:08 | P.PN ---
Subjective Progress Note Date: 10/27/23 Patient is a 83-year-old male with a history of pneumonia (discharged on 10/23 from [place]), COPD (on 2 L of oxygen at home), diabetes type 2, A-fib (ablation x 1), CHF (55% EF on echo last February 2022), and dementia dementia who came in for bilateral lower extremity swelling with with erythematous changes noted yesterday. Per patient's patient has no known chronic swelling of send lower extremities but never became this erythematous acutely. Venous Doppler shows a right popliteal cyst, right calf soft tissue swelling and edema, negative for DVT. Chest x-ray shows small to moderate posterior pleural effusions with bibasilar infiltrate. 10/26 patient seen and examined at bedside. Has no new complaints overnight. Denies chest pain, SOB, abd pain, leg pain, LOC, dizziness, weakness Review of systems: Pertinent positives and negatives as discussed in HPI, a complete review of systems was performed and all other systems are negative. Physical examination: Vital signs reviewed General: non toxic, no distress, appears at stated age, normal weight Derm: no unusual rashes/lesions, warm Head: atraumatic, normocephalic, symmetric Eyes: EOMI, no lid lag, anicteric sclera, pupils equal round reactive to light, bilateral yellow mucoid discharge ENT: Nose and ears atraumatic Neck: No cervical lymphadenopathy, trachea midline, supple Mouth: no lip lesion, mucus membranes moist Cardiovascular irregularly irregular, no murmur Lungs: CTA bilateral, rhonchi bilateral in lower lung young, no rales, no accessory muscle use Abdominal: soft, nontender to palpation, no guarding Ext: muscle strength 5 out of 5 in all 4 extremities grossly, no gross muscle atrophy, no contractures, positive dorsalis pedis pulse bilateral, +4 bilateral pitting edema, erythematous; bilateral fingers are cyanotic and cool to touch Neuro: CN II-XI grossly intact, no gross focal neuro deficits Psych: Alert, oriented, appropriate affect and mood Assessment/Plan: #. Bilateral lower and upper extremity edema due to chronic venous insufficiency rule out inflammatory process, phlebitis Venous Doppler of bilateral lower extremity shows no DVT but soft tissue swelling and edema. Patient currently stable and asymptomatic -Place on SCD for bilateral lower extremities -Elevate and place on warm compress -Follow up ESR CRP -Order upper extremity venous duplex #. Bilateral Pleural effusion, due to bacterial pneumonia Patient has known history of COPD, and recent pneumonia treated at different facility. -Per ID, d/c vanomycin due to borderline kidney function, continue zosyn -Continue with Zosyn 3.375 IVPB every 8 hours -Continue with furosemide 40 mg IV every 12 -Follow up blood cultures -Follow-up sputum culture -Follow-up urine Legionella antigen - CBC at a.m. #Hypoalbuminemia with malnutrition -Order ensure TID -Encourage feeding # Diabetes with hyperglycemia UA show +4 glucose. POC glucose at 200s. -Insulin sliding scale, low-dose less than 70 kg -Levemir 10u at night -Novolog 2u with meals TID -Check BMP at a.m. #. Chronic CHF due to A-fib, not in exacerbation Last known echo with ejection fraction 55%. -Continue with furosemide -Continue with Farciga 5mg PO OD -Continue with Eliquis 5 mg p.o. twice daily -Continue with spironolactone 25 mg p.o. daily #. Hypomagnesemia Patient currently stable and asymptomatic -Replace magnesium per protocol -follow up magnesium in a.m. #. Elevated troponins, resolved Patient currently stable and asymptomatic. Troponins downtrending. -Will monitor for now DVT prophylaxis: Eliquis 5mg PO BID GI prophylaxis: Protonix 40 mg p.o. OD Chronic conditions: Hypertension, hyperlipidemia, diabetes, A-fib, dementia, CHF, former smoker Attestation I have seen and examined this patient with my resident , discussed the same with the resident/MIKKI, and agree with the dictator's assessment and plan as written GENERAL: The patient is alert and oriented x3, HEENT: Pupils are round and equally reacting to light. EOMI. No scleral icterus. No conjunctival pallor. Normocephalic, atraumatic. No pharyngeal erythema. No t hyromegaly. CARDIOVASCULAR: S1 and S2 present. No murmurs, rubs, or gallops. PULMONARY: Coarse breath sound bilaterally,, rhonchi audible ABDOMEN: Soft, nontender, nondistended, normoactive bowel sounds. No palpable organomegaly. MUSCULOSKELETAL: No joint swelling or deformity. EXTREMITIES: No cyanosis, clubbing, or pedal edema. NEUROLOGICAL: Gross neurological examination did not reveal any focal deficits. SKIN: No rashes. Dr. Eze montgomery Objective - Vital Signs Vital signs: Vital Signs Temp 97.4 F L 10/26/23 23:20 Pulse 74 10/27/23 04:00 Resp 14 10/27/23 04:00 BP 109/53 10/27/23 04:00 Pulse Ox 93 L 10/27/23 04:00 FiO2 Intake & Output 10/26/23 10/27/23 10/27/23 18:59 06:59 18:59 Intake Total 218 Output Total 250 Balance 218 -250 Weight 77.111 kg 64.5 kg Intake: Oral 218 Output: Urine 250 Other: Voiding Method External Catheter External Catheter - Labs CBC & Chem 7: 10/31/23 07:34 11/02/23 07:01 Labs: Abnormal Lab Results - Last 24 Hours (Table) 10/25/23 10/26/23 10/26/23 Range/Units 22:44 16:57 20:05 POC Glucose (mg/dL) 196 H 289 H (70-110) mg/dL Plasma Lactic Acid Shamar 2.8 H* (0.7-2.0) mmol/L 10/27/23 Range/Units 06:13 POC Glucose (mg/dL) 210 H (70-110) mg/dL Plasma Lactic Acid Shamar (0.7-2.0) mmol/L
[2023-10-27 11:16] LABS: Glucose,Whole Blood 262 mg/dL (70-110)
--- NOTE | 2023-10-27 12:23 | CDI ---
Documentation Clarification Form Date: 10/27/2023 12:07:37 PM From: Ashley Rothman RN CDIS Phone: [phone] Admit Date: 10/25/2023 04:41:00 PM Patient Name: Kenroy Lovelace Visit Number: [id number] Discharge Date: ATTENTION: The Clinical Documentation Specialists (CDI) and [facility] Coding Staff appreciate your assistance in clarifying documentation. Please respond to the clarification below the line at the bottom and electronically sign. The CDI & [facility] Coding staff will review the response and follow-up if needed. Please note: Queries are made part of the Legal Health Record. If you have any questions, please contact the author of this message via ITS. Doctor: Eze Bradford Conflicting documentation has been found in the medical record. As attending physician, please provide clarification. Preserved or reduced EF CHF, likely due to A-fib, not in exacerbation. Medicine progress note, 10/26. Suspect acute CHF exacerbation, previously with preserved ejection fraction. Pulmonary progress note 10/25. History/Risk Factors: 83 year old male presents to the ED after being discharged 10/23 from [place]. The patient has known bilateral lower extremity swelling with erythematous changes. The patient has associated shortness of breath. Medical history: CHF, Dementia, DM, AFIB and HTN. 10/25, HP. Clinical Indicators: VSS, 10/26: B/P 126/60, Hr 96.6F Axillary, RR 15, HR 70, SpO2 95% 2L nasal cannula CXR, 10/24: CXR: Small to moderate posterior pleural effusions with bibasilar infiltrate. HP, 10/25: CHF (55% EF on ECHO last February 2022). Labs, 10/24: PBNP 2850 Treatment: 10/24 Lasix 40mg IV x1; 10/25 Farxiga 5mg po daily, 10/25 Lasix 40mg IV Q12H, Toprol XL 25mg po bid, 10/25 Aldactone 25mg po daily. Please clarify which diagnosis is most appropriate: [ x] Acute on Chronic Diastolic CHF [ ] Chronic Diastolic CHF [ ] Other (please specify) [ ] Unable to determine (Template Last Revised: April 2020) MTDD
[2023-10-27 12:57] LABS: Amorphous Sediment,Urine Rare /hpf; Appearance,Urine Cloudy (Clear); Bilirubin,Urine Negative (Negative); Blood,Urine Negative (Negative); Color,Urine Colorless; Glucose,Urine (UA) 4+ (Negative); Ketones,Urine Negative (Negative); Leukocyte Esterase,Urine Trace (Negative); Mucus,Urine Rare /hpf; Nitrite,Urine Negative (Negative); Protein,Urine Negative (Negative); RBC,Urine 1 /hpf (0-5); Specific Gravity,Urine 1.014 (1.001-1.035); Squamous Epithelial Cell,Urine 1 /hpf (0-4); Uric Acid Crystals,Urine Occasional /hpf; Urobilinogen,Urine <2.0 mg/dL (<2.0); WBC,Urine 2 /hpf (0-5)
--- NOTE | 2023-10-27 12:58 | P.PN ---
Subjective Progress Note Date: 10/27/23 Principal diagnosis: Shortness of breath, leg swelling. Patient is an 83-year-old white male with past medical history significant for COPD, hypertension, hyperlipidemia, atrial fibrillation status post cardiac ablation, heart failure, pleural effusion with previous thoracentesis. Also, has dementia and is technically a poor historian. Presented to the emergency room yesterday afternoon complaining primarily of shortness of breath and lower extremity swelling. Reportedly has been treated outpatient with multiple rounds of antibiotics for pneumonia. Patient is currently being evaluated the emergency department. Not a very good historian. No acute respiratory distres s. Currently on 2 L/min nasal cannula, SpO2 99%. He does have a congested cough. Currently afebrile. He does have significant bilateral lower extremity swelling and his right foot/ankle is erythemic and warm. Venous Doppler of the right lower extremity negative for DVT. Chest x-ray showing pulmonary vascular congestion, small to moderate bilateral pleural effusions with associated atelectasis versus infiltrate. NT proBNP elevated at 2850. CBC: WBC count 12.2, hemoglobin 14.2, hematocrit 43.6, platelets 276. CMP: Sodium 136, potassium 3.7, chloride 102, serum bicarb 28, BUN 48, creatinine 1.49, glucose 220. Lactic peaked at 3 and down to 2.8. Magnesium 1.4. LFTs unremarkable. Troponin 0.038. EKG showing normal sinus rhythm without any obvious acute ischemic changes. Hemodynamically, the patient is stable at this time. Progress note dated October 27, 2023. 83-year-old male well-known to me. He has a history of COPD, hypertension, hyperlipidemia, atrial fibrillation, heart failure, and previous pleural effusion. The patient is also demented. The patient was brought into the emergency department, with complaints of shortness of breath, and lower extremity edema. The patient was thought to have either heart failure, and or pneumonia. The patient's procalcitonin level was 0.12. N-terminal proBNP is 2850. He is on 2 L of oxygen. Saturations are 95%. Zosyn is discontinued. He is getting saline at 10 cc an hour. A glucose of 262. Objective - Vital Signs Vital signs: Vital Signs Temp 96.6 F L 10/27/23 11:51 Pulse 64 10/27/23 12:12 Resp 15 10/27/23 11:51 BP 126/60 10/27/23 11:51 Pulse Ox 95 10/27/23 11:51 FiO2 Intake & Output 10/26/23 10/27/23 10/27/23 18:59 06:59 18:59 Intake Total 218 660 Output Total 250 400 Balance 218 -250 260 Weight 77.111 kg 64.5 kg 64.5 kg Intake: Oral 218 660 Output: Urine 250 400 Other: Voiding Method External Catheter External Catheter External Catheter - Exam No acute distress, lethargic, currently on 2 L nasal cannula. Saturations are 95%. HEENT examination is grossly unremarkable. Neck supple. Full range of motion. No adenopathy thyromegaly or neck vein distention. Cardiovascular examination reveals regular rhythm rate. S1-S2 normal. No S3 or S4. No discernible murmur noted. Lungs reveal scattered rhonchi and crackles. Breath sounds equal. No wheezes. Breath sounds diminished throughout. Abdomen soft bowel sounds are heard. No masses or tenderness. Extremities are intact. No cyanosis or clubbing. There is 2+ pitting edema. Skin is without rash or lesion. Neurologic examination is brief but nonfocal. - Labs CBC & Chem 7: 10/25/23 14:14 10/25/23 14:14 Labs: Abnormal Lab Results - Last 24 Hours (Table) 10/26/23 10/26/23 10/27/23 Range/Units 16:57 20:05 06:13 POC Glucose (mg/dL) 196 H 289 H 210 H (70-110) mg/dL 10/27/23 Range/Units 11:13 POC Glucose (mg/dL) 262 H (70-110) mg/dL Assessment and Plan Assessment: Acute hypoxemic respiratory failure, likely related to CHF, doubt pneumonia. Suspect acute CHF exacerbation. Bilateral lower extremity edema. Right lower extremity cellulitis. COPD, currently inactive. Acute kidney injury. Elevated troponins, rule out NSTEMI. History of hypertension. History of hyperlipidemia. History of atrial fibrillation, status post cardiac ablation. Bilateral pleural effusions with history of previous bilateral thoracentesis. History of septic arthritis. Plan: Plan dated October 27, 2023. The patient is seen initially in the emergency department, and is seen today, in room 358. The patient was thought to have either heart failure, and or pneumonia. The patient's procalcitonin level was normal. Zosyn will be discontinued. He continues on oxygen at 2 L. Saturations are 95%. The patient's troponins were mildly elevated, and the N-terminal proBNP was elevated as well. He was brought in by his , primarily for lower extremity edema. We will continue to follow. Prognosis is guarded. No additional recommendations are made. Time with Patient: Less than 30
--- NOTE | 2023-10-27 13:54 | US ---
EXAMINATION TYPE: US venous doppler duplex UE DATE OF EXAM: 10/27/2023 Exam done portable COMPARISON: NONE CLINICAL INDICATION: Male, 83 years old with history of swelling and discoloration of bilateral upper ext; SIDE PERFORMED: Bilateral Difficult and limited study and bilateral cephalic veins not seen due patient positioning and small vessels Right Arm: Visualized portions appear negative for DVT Left Arm: Visualized portions appear negative for DVT IMPRESSION: Grayscale, color doppler, spectral doppler imaging performed of the deep veins of the upper extremiti es. There is normal flow, compressibility and vascular waveforms.
[2023-10-27 16:09] LABS: Glucose,Whole Blood 300 mg/dL (70-110)
[2023-10-27] MEDS: INSULIN ASPART (NovoLOG) 100 UNIT/ML VIAL SQ SCH (16:19)
[2023-10-27 16:24] LABS: Basophils % (A) 0 %; Eosinophils % (A) 0 %; HCT 43.3 % (39.0-53.0); HGB 13.3 gm/dL (13.0-17.5); Hypochromasia Moderate; Lymphocytes # (A) 0.3 k/uL (1.0-4.8); Lymphocytes % (A) 2 %; MCH 29.8 pg (25.0-35.0); MCHC 30.6 g/dL (31.0-37.0); MCV 97.4 fL (80.0-100.0); Monocytes # (A) 0.4 k/uL (0-1.0); Monocytes % (A) 3 %; Neutrophils # (A) 13.8 k/uL (1.3-7.7); Neutrophils % (A) 94 %; Platelet Count 280 k/uL (150-450); RBC 4.45 m/uL (4.30-5.90); RDW 13.7 % (11.5-15.5); WBC 14.6 k/uL (3.8-10.6)
[2023-10-27 16:32] LABS: ALT 26 U/L (4-49); AST 25 U/L (17-59); African American GFR (CKD) 50 (>60 ml/min/1.73 sqM); Albumin 2.9 g/dL (3.5-5.0); Alkaline Phosphatase 67 U/L (38-126); Anion Gap 8 mmol/L; Blood Urea Nitrogen 38 mg/dL (9-20); Calcium 9.9 mg/dL (8.4-10.2); Carbon Dioxide 29 mmol/L (22-30); Chloride 99 mmol/L (98-107); Glucose 304 mg/dL (74-99); Magnesium 1.9 mg/dL (1.6-2.3); Non-African American GFR(CKD) 43 (>60 ml/min/1.73 sqM); Potassium 4.2 mmol/L (3.5-5.1); Sodium 136 mmol/L (137-145); Total Bilirubin 0.5 mg/dL (0.2-1.3); Total Protein 5.3 g/dL (6.3-8.2)
[2023-10-27 16:41] LABS: NT-Pro-B-Type Natriuretic Pept 4590 pg/mL
[2023-10-27 20:18] LABS: Glucose,Whole Blood 419 mg/dL (70-110)
[2023-10-27] MEDS: INSULIN DETEMIR (LEVEMIR) 100 UNIT/ML SYR SQ SCH (21:20)
[2023-10-27] MEDS: INSULIN DETEMIR (LEVEMIR) 100 UNIT/ML SYR SQ STA (21:20)
--- NOTE | 2023-10-27 21:20 | P.PN ---
Subjective Progress Note Date: 10/27/23 Principal diagnosis: Reason for follow-up is right lower extremity cellulitis and question of pneumonia Patient is a 83-year-old male with a past medical history significant for diabetes mellitus hypertension hyperlipidemia COPD atrial fibrillation pneumonia prostate disorder patient has been brought into the hospital for evaluation of increasing shortness of breath and right leg swelling with concern for right lower extremity cellulitis and possible pneumonia. On today's evaluation that is 10/27/2023, Patient is afebrile this morning patient is more awake and alert today denies having any chest pain shortness of breath or any worsening cough cough, the patient is breathing comfortably and currently on room air, patient denies any abdominal pain no diarrhea no nausea no vomiting, denies any worsening pain to the right leg. Patient white count is 14.6 creatinine is 1.47 Objective - Vital Signs Vital signs: Vital Signs Temp 97 F L 10/27/23 16:00 Pulse 66 10/27/23 21:17 Resp 16 10/27/23 16:00 BP 104/59 10/27/23 16:00 Pulse Ox 98 10/27/23 16:00 FiO2 Intake & Output 10/27/23 10/27/23 10/28/23 06:59 18:59 06:59 Intake Total 1140 Output Total 250 750 Balance -250 390 Weight 64.5 kg 64.5 kg Intake: Oral 1140 Output: Urine 250 750 Other: Voiding Method External Catheter External Catheter - Exam GENERAL DESCRIPTION: An elderly male lying in bed in no distress RESPIRATORY SYSTEM: Unlabored breathing , decreased breath sounds at bases HEART: S1 S2 regular rate and rhythm , ABDOMEN: Soft , no tenderness EXTREMITIES: Right lower extremity slight erythema which is warm to touch - Labs CBC & Chem 7: 10/27/23 16:10 10/27/23 16:10 Labs: Abnormal Lab Results - Last 24 Hours (Table) 10/27/23 10/27/23 10/27/23 Range/Units 06:13 11:13 12:00 WBC (3.8-10.6) k/uL MCHC (31.0-37.0) g/dL Neutrophils # (1.3-7.7) k/uL Lymphocytes # (1.0-4.8) k/uL Sodium (137-145) mmol/L BUN (9-20) mg/dL Creatinine (0.66-1.25) mg/dL Glucose (74-99) mg/dL POC Glucose (mg/dL) 210 H 262 H (70-110) mg/dL C-Reactive Protein (<1.0) mg/dL Total Protein (6.3-8.2) g/dL Albumin (3.5-5.0) g/dL Urine Glucose (UA) 4+ H (Negative) Ur Leukocyte Esterase Trace H (Negative) Uric Acid Crystals Occasional H (None) /hpf Amorphous Sediment Rare H (None) /hpf Urine Mucus Rare H (None) /hpf 10/27/23 10/27/23 10/27/23 Range/Units 16:08 16:10 16:10 WBC 14.6 H (3.8-10.6) k/uL MCHC 30.6 L (31.0-37.0) g/dL Neutrophils # 13.8 H (1.3-7.7) k/uL Lymphocytes # 0.3 L (1.0-4.8) k/uL Sodium 136 L (137-145) mmol/L BUN 38 H (9-20) mg/dL Creatinine 1.47 H (0.66-1.25) mg/dL Glucose 304 H (74-99) mg/dL POC Glucose (mg/dL) 300 H (70-110) mg/dL C-Reactive Protein 1.0 H (<1.0) mg/dL Total Protein 5.3 L (6.3-8.2) g/dL Albumin 2.9 L (3.5-5.0) g/dL Urine Glucose (UA) (Negative) Ur Leukocyte Esterase (Negative) Uric Acid Crystals (None) /hpf Amorphous Sediment (None) /hpf Urine Mucus (None) /hpf 10/27/23 Range/Units 20:16 WBC (3.8-10.6) k/uL MCHC (31.0-37.0) g/dL Neutrophils # (1.3-7.7) k/uL Lymphocytes # (1.0-4.8) k/uL Sodium (137-145) mmol/L BUN (9-20) mg/dL Creatinine (0.66-1.25) mg/dL Glucose (74-99) mg/dL POC Glucose (mg/dL) 419 H (70-110) mg/dL C-Reactive Protein (<1.0) mg/dL Total Protein (6.3-8.2) g/dL Albumin (3.5-5.0) g/dL Urine Glucose (UA) (Negative) Ur Leukocyte Esterase (Negative) Uric Acid Crystals (None) /hpf Amorphous Sediment (None) /hpf Urine Mucus (None) /hpf Assessment and Plan (1) Abnormal chest x-ray Current Visit: Yes Status: Acute Code(s): R93.89 - ABNORMAL FINDINGS ON DX IMAGING OF OTH BODY STRUCTURES SNOMED Code(s): 872339557 (2) Leukocytosis Current Visit: No Status: Acute Code(s): D72.829 - ELEVATED WHITE BLOOD CELL COUNT, UNSPECIFIED SNOMED Code(s): 463352908 (3) Cellulitis of leg, right Current Visit: Yes Status: Acute Code(s): L03.115 - CELLULITIS OF RIGHT LOWER LIMB SNOMED Code(s): 25229596838935800 Plan: 1patient presented to hospital with increasing shortness of breath lower extremity swelling questionable of fluid overload CHF as the patient did have a bilateral effusion swelling to the lower extremity which is red and warm to touch 2-patient did have elevated white count and a previous history of UTI UA done this admission has been negative 3-patient with borderline kidney function high risk for nephrotoxicity 4-patient did have a component of right leg cellulitis we will start the patient on cefazolin and monitor clinical course closely Dictation was produced using [employer] dictation software. please excuse any grammatical, word or spelling errors. Time with Patient: Less than 30
[2023-10-28 03:51] LABS: Erythrocyte Sedimentation Rate 13 mm/Hr (0-20)
[2023-10-28 04:26] LABS: Chol/HDL Ratio 2.18 Ratio; VLDL Calculation 13.14 mg/dL (5.00-40.00)
[2023-10-28 04:27] LABS: LDL Cholesterol,Calculated 46.5 mg/dL (0.0-131.0)
[2023-10-28 06:25] LABS: Glucose,Whole Blood 121 mg/dL (70-110)
[2023-10-28 10:07] LABS: African American GFR (CKD) 55 (>60 ml/min/1.73 sqM); Anion Gap 6 mmol/L; Blood Urea Nitrogen 39 mg/dL (9-20); Calcium 10.1 mg/dL (8.4-10.2); Carbon Dioxide 31 mmol/L (22-30); Chloride 100 mmol/L (98-107); Glucose 67 mg/dL (74-99); HCT 41.8 % (39.0-53.0); HGB 13.6 gm/dL (13.0-17.5); MCH 31.1 pg (25.0-35.0); MCHC 32.7 g/dL (31.0-37.0); Magnesium 1.9 mg/dL (1.6-2.3); Mean Platelet Volume 8.7; Non-African American GFR(CKD) 48 (>60 ml/min/1.73 sqM); Platelet Count 296 k/uL (150-450); Potassium 3.6 mmol/L (3.5-5.1); RBC 4.39 m/uL (4.30-5.90); RDW 14.2 % (11.5-15.5); Sodium 137 mmol/L (137-145); WBC 18.7 k/uL (3.8-10.6)
--- NOTE | 2023-10-28 10:56 | P.PN ---
Subjective Progress Note Date: 10/28/23 Principal diagnosis: Shortness of breath, leg swelling. Patient is an 83-year-old white male with past medical history significant for COPD, hypertension, hyperlipidemia, atrial fibrillation status post cardiac ablation, heart failure, pleural effusion with previous thoracentesis. Also, has dementia and is technically a poor historian. Presented to the emergency room yesterday afternoon complaining primarily of shortness of breath and lower extremity swelling. Reportedly has been treated outpatient with multiple rounds of antibiotics for pneumonia. Patient is currently being evaluated the emergency department. Not a very good historian. No acute respiratory distres s. Currently on 2 L/min nasal cannula, SpO2 99%. He does have a congested cough. Currently afebrile. He does have significant bilateral lower extremity swelling and his right foot/ankle is erythemic and warm. Venous Doppler of the right lower extremity negative for DVT. Chest x-ray showing pulmonary vascular congestion, small to moderate bilateral pleural effusions with associated atelectasis versus infiltrate. NT proBNP elevated at 2850. CBC: WBC count 12.2, hemoglobin 14.2, hematocrit 43.6, platelets 276. CMP: Sodium 136, potassium 3.7, chloride 102, serum bicarb 28, BUN 48, creatinine 1.49, glucose 220. Lactic peaked at 3 and down to 2.8. Magnesium 1.4. LFTs unremarkable. Troponin 0.038. EKG showing normal sinus rhythm without any obvious acute ischemic changes. Hemodynamically, the patient is stable at this time. Progress note dated October 27, 2023. 83-year-old male well-known to me. He has a history of COPD, hypertension, hyperlipidemia, atrial fibrillation, heart failure, and previous pleural effusion. The patient is also demented. The patient was brought into the emergency department, with complaints of shortness of breath, and lower extremity edema. The patient was thought to have either heart failure, and or pneumonia. The patient's procalcitonin level was 0.12. N-terminal proBNP is 2850. He is on 2 L of oxygen. Saturations are 95%. Zosyn is discontinued. He is getting saline at 10 cc an hour. A glucose of 262. Progress note dated October 28, 2023. 83-year-old male seen in room 358. He is doing better today. He is on 3 L. His is in the room. He is not receiving any IV fluids. Dopplers of the upper extremities were negative bilaterally. The patient was seen by the infectious disease doctor, and even though the procalcitonin level was normal, he started the patient on Ancef for presumed cellulitis of the lower extremity. I believe that is unnecessary. The patient is better from the pulmonary standpoint. Current labs include a white count 18.7, hemoglobin 13.6, hematocrit 41.8, platelet count 296,000. Sodium 137, potassium 3.6, chlorides 100, CO2 31, BUN 39, creatinine 1.35. Calcium is 10.1. Procalcitonin level was 0.12. He tested negative for coronavirus, and Legionella. Objective - Vital Signs Vital signs: Vital Signs Temp 97.1 F L 10/28/23 04:15 Pulse 72 10/28/23 08:00 Resp 20 10/28/23 04:15 BP 108/68 10/28/23 04:15 Pulse Ox 95 10/28/23 04:15 FiO2 Intake & Output 10/27/23 10/28/23 10/28/23 18:59 06:59 18:59 Intake Total 1140 180 Output Total 750 400 Balance 390 -400 180 Weight 64.5 kg 70.5 kg Intake: Oral 1140 180 Output: Urine 750 400 Other: Voiding Method External Catheter External Catheter - Exam No acute distress, lethargic, currently on 3 L nasal cannula. Saturations are 96 %. HEENT examination is grossly unremarkable. Neck supple. Full range of motion. No adenopathy thyromegaly or neck vein distention. Cardiovascular examination reveals regular rhythm rate. S1-S2 normal. No S3 or S4. No discernible murmur noted. Lungs reveal scattered rhonchi and crackles. Breath sounds equal. No wheezes. Breath sounds diminished throughout. Abdomen soft bowel sounds are heard. No masses or tenderness. Extremities are intact. No cyanosis or clubbing. There is 2+ pitting edema. Mild erythema of the lower extremities. Skin is without rash or lesion. Neurologic examination is brief but nonfocal. - Labs CBC & Chem 7: 10/28/23 08:56 10/28/23 08:56 Labs: Abnormal Lab Results - Last 24 Hours (Table) 10/27/23 10/27/23 10/27/23 Range/Units 11:13 12:00 16:08 WBC (3.8-10.6) k/uL MCHC (31.0-37.0) g/dL Neutrophils # (1.3-7.7) k/uL Lymphocytes # (1.0-4.8) k/uL Sodium (137-145) mmol/L Carbon Dioxide (22-30) mmol/L BUN (9-20) mg/dL Creatinine (0.66-1.25) mg/dL Glucose (74-99) mg/dL POC Glucose (mg/dL) 262 H 300 H (70-110) mg/dL Hemoglobin A1c (<=6.0) % C-Reactive Protein (<1.0) mg/dL Total Protein (6.3-8.2) g/dL Albumin (3.5-5.0) g/dL Urine Glucose (UA) 4+ H (Negative) Ur Leukocyte Esterase Trace H (Negative) Uric Acid Crystals Occasional H (None) /hpf Amorphous Sediment Rare H (None) /hpf Urine Mucus Rare H (None) /hpf 10/27/23 10/27/23 10/27/23 Range/Units 16:10 16:10 16:10 WBC 14.6 H (3.8-10.6) k/uL MCHC 30.6 L (31.0-37.0) g/dL Neutrophils # 13.8 H (1.3-7.7) k/uL Lymphocytes # 0.3 L (1.0-4.8) k/uL Sodium 136 L (137-145) mmol/L Carbon Dioxide (22-30) mmol/L BUN 38 H (9-20) mg/dL Creatinine 1.47 H (0.66-1.25) mg/dL Glucose 304 H (74-99) mg/dL POC Glucose (mg/dL) (70-110) mg/dL Hemoglobin A1c 8.5 H (<=6.0) % C-Reactive Protein 1.0 H (<1.0) mg/dL Total Protein 5.3 L (6.3-8.2) g/dL Albumin 2.9 L (3.5-5.0) g/dL Urine Glucose (UA) (Negative) Ur Leukocyte Esterase (Negative) Uric Acid Crystals (None) /hpf Amorphous Sediment (None) /hpf Urine Mucus (None) /hpf 0810/28/23 10/28/23 Range/Units 20:16 06:24 08:56 WBC 18.7 H (3.8-10.6) k/uL MCHC (31.0-37.0) g/dL Neutrophils # (1.3-7.7) k/uL Lymphocytes # (1.0-4.8) k/uL Sodium (137-145) mmol/L Carbon Dioxide (22-30) mmol/L BUN (9-20) mg/dL Creatinine (0.66-1.25) mg/dL Glucose (74-99) mg/dL POC Glucose (mg/dL) 419 H 121 H (70-110) mg/dL Hemoglobin A1c (<=6.0) % C-Reactive Protein (<1.0) mg/dL Total Protein (6.3-8.2) g/dL Albumin (3.5-5.0) g/dL Urine Glucose (UA) (Negative) Ur Leukocyte Esterase (Negative) Uric Acid Crystals (None) /hpf Amorphous Sediment (None) /hpf Urine Mucus (None) /hpf 10/28/23 Range/Units 08:56 WBC (3.8-10.6) k/uL MCHC (31.0-37.0) g/dL Neutrophils # (1.3-7.7) k/uL Lymphocytes # (1.0-4.8) k/uL Sodium (137-145) mmol/L Carbon Dioxide 31 H (22-30) mmol/L BUN 39 H (9-20) mg/dL Creatinine 1.35 H (0.66-1.25) mg/dL Glucose 67 L (74-99) mg/dL POC Glucose (mg/dL) (70-110) mg/dL Hemoglobin A1c (<=6.0) % C-Reactive Protein (<1.0) mg/dL Total Protein (6.3-8.2) g/dL Albumin (3.5-5.0) g/dL Urine Glucose (UA) (Negative) Ur Leukocyte Esterase (Negative) Uric Acid Crystals (None) /hpf Amorphous Sediment (None) /hpf Urine Mucus (None) /hpf Assessment and Plan Assessment: Acute hypoxemic respiratory failure, likely related to CHF, doubt pneumonia. Suspect acute CHF exacerbation. Bilateral lower extremity edema. Possible right lower extremity cellulitis. COPD, currently inactive. Acute kidney injury. Elevated troponins, rule out NSTEMI. History of hypertension. History of hyperlipidemia. History of atrial fibrillation, status post cardiac ablation. Bilateral pleural effusions with history of previous bilateral thoracentesis. History of septic arthritis. Plan: Plan dated October 27, 2023. The patient is seen initially in the emergency department, and is seen today, in room 358. The patient was thought to have either heart failure, and or pneumonia. The patient's procalcitonin level was normal. Zosyn will be discontinued. He continues on oxygen at 2 L. Saturations are 95%. The patient's troponins were mildly elevated, and the N-terminal proBNP was elevated as well. He was brought in by his , primarily for lower extremity edema. We will continue to follow. Prognosis is guarded. No additional recommendations are made. Plan dated October 28, 2023. The patient is doing much better today. He is on 3 L. He is sitting up in bed. His is in the room. He is not receiving any IV fluids. The infectious disease doctor started the patient on Ancef for possible cellulitis of the lower extremities. Dopplers of the bilateral upper extremities were negative. We will continue to follow make recommendations. Prognosis is guarded. No additional recommendations are made. Procalcitonin level was normal. Time with Patient: Less than 30
[2023-10-28 11:44] LABS: Glucose,Whole Blood 237 mg/dL (70-110)
--- NOTE | 2023-10-28 14:12 | P.PN ---
Subjective Patient is a 83-year-old male with a history of pneumonia (discharged on 10/23 from [place]), COPD (on 2 L of oxygen at home), diabetes type 2, A-fib (ablation x 1), CHF (55% EF on echo last February 2022), and dementia dementia who came in for bilateral lower extremity swelling with with erythematous changes noted yesterday. Per patient's patient has no known chronic swelling of send lower extremities but never became this erythematous acutely. Venous Doppler shows a right popliteal cyst, right calf soft tissue swelling and edema, negative for DVT. Chest x-ray shows small to moderate posterior pleural effusions with bibasilar infiltrate. 10/26 patient seen and examined at bedside. Has no new complaints overnight. Denies chest pain, SOB, abd pain, leg pain, LOC, dizziness, or weakness 10/27 patient seen awak and examined at bedside. Has no new complaints overnight. Swelling of lower extremities has improved and is not erythematous. Swelling of bilateral upper extremities improved and is not cyanotic. Denies chest pain, shortness of breath, abdominal pain, leg pain, LOC, dizziness, or weakness. Review of systems: Pertinent positives and negatives as discussed in HPI, a complete review of systems was performed and all other systems are negative. Physical examination: Vital signs reviewed General: non toxic, no distress, appears at stated age, normal weight Derm: no unusual rashes/lesions, warm Head: atraumatic, normocephalic, symmetric Eyes: EOMI, no lid lag, anicteric sclera, pupils equal round reactive to light, bilateral yellow mucoid discharge ENT: Nose and ears atraumatic Neck: No cervical lymphadenopathy, trachea midline, supple Mouth: no lip lesion, mucus membranes moist Cardiovascular irregularly irregular, no murmur Lungs: CTA bilateral, rhonchi bilateral in lower lung young, no rales, no accessory muscle use Abdominal: soft, nontender to palpation, no guarding Ext: muscle strength 5 out of 5 in all 4 extremities grossly, no gross muscle atrophy, no contractures, positive dorsalis pedis pulse bilateral, +4 bilateral pitting edema, erythematous; bilateral upper extremities +3 pitting edema Neuro: CN II-XI grossly intact, no gross focal neuro deficits Psych: Alert, oriented, appropriate affect and mood Assessment/Plan: #. Bilateral lower extremity edema due to chronic venous insufficiency Venous Doppler of bilateral lower extremity shows no DVT. Patient currently stable and asymptomatic -Place on SCD for bilateral lower extremities -Elevate and place on warm compress -Follow up ESR CRP #. Bilateral Pleural effusion, due to bacterial pneumonia Patient has known history of COPD, and recent pneumonia treated at different facility. Legionella antigen and urine negative. -Per ID, d/c vanomycin due to borderline kidney function, continue zosyn -Continue with Zosyn 3.375 IVPB every 8 hours -Continue with furosemide 40 mg IV every 12 -Discontinue Farxiga for now -Follow up blood cultures -Follow-up sputum culture - CBC at a.m. #Hypoalbuminemia with malnutrition -Order ensure TID -Encourage feeding -CMP at a.m. # Diabetes with hyperglycemia UA show +4 glucose. POC glucose trending from 200-400 overnight. -Insulin sliding scale, low-dose less than 70 kg -Levemir 10u at night -Novolog 2u with meals TID -Check CMP at a.m. #. Chronic CHF due to A-fib, not in exacerbation Last known echo with ejection fraction 55%. Upper extremity swelling likely due to being fluid overloaded -Continue with furosemide -Discontinue Farxiga for now -Continue with Eliquis 5 mg p.o. twice daily -Continue with spironolactone 25 mg p.o. daily #. Hypomagnesemia Patient currently stable and asymptomatic -Replace magnesium per protocol -follow up magnesium in a.m. #. Elevated troponins, resolved Patient currently stable and asymptomatic. Troponins downtrending. DVT prophylaxis: Eliquis 5mg PO BID GI prophylaxis: Protonix 40 mg p.o. OD Chronic conditions: Hypertension, hyperlipidemia, diabetes, A-fib, dementia, CHF, former smoker Attestation: I have personally seen and examined the patient with Resident, reviewed the documentation and participated and agree with the assessment and plan as written. Objective - Vital Signs Vital signs: Vital Signs Temp 97.1 F L 10/28/23 04:15 Pulse 72 10/28/23 07:50 Resp 20 10/28/23 04:15 BP 108/68 10/28/23 04:15 Pulse Ox 95 10/28/23 04:15 FiO2 Intake & Output 10/27/23 10/28/23 10/28/23 18:59 06:59 18:59 Intake Total 1140 Output Total 750 400 Balance 390 -400 Weight 64.5 kg 70.5 kg Intake: Oral 1140 Output: Urine 750 400 Other: Voiding Method External Catheter External Catheter - Labs CBC & Chem 7: 10/30/23 06:41 10/30/23 06:41 Labs: Abnormal Lab Results - Last 24 Hours (Table) 10/27/23 10/27/23 10/27/23 Range/Units 11:13 12:00 16:08 WBC (3.8-10.6) k/uL MCHC (31.0-37.0) g/dL Neutrophils # (1.3-7.7) k/uL Lymphocytes # (1.0-4.8) k/uL Sodium (137-145) mmol/L BUN (9-20) mg/dL Creatinine (0.66-1.25) mg/dL Glucose (74-99) mg/dL POC Glucose (mg/dL) 262 H 300 H (70-110) mg/dL Hemoglobin A1c (<=6.0) % C-Reactive Protein (<1.0) mg/dL Total Protein (6.3-8.2) g/dL Albumin (3.5-5.0) g/dL Urine Glucose (UA) 4+ H (Negative) Ur Leukocyte Esterase Trace H (Negative) Uric Acid Crystals Occasional H (None) /hpf Amorphous Sediment Rare H (None) /hpf Urine Mucus Rare H (None) /hpf 10/27/23 10/27/23 10/27/23 Range/Units 16:10 16:10 16:10 WBC 14.6 H (3.8-10.6) k/uL MCHC 30.6 L (31.0-37.0) g/dL Neutrophils # 13.8 H (1.3-7.7) k/uL Lymphocytes # 0.3 L (1.0-4.8) k/uL Sodium 136 L (137-145) mmol/L BUN 38 H (9-20) mg/dL Creatinine 1.47 H (0.66-1.25) mg/dL Glucose 304 H (74-99) mg/dL POC Glucose (mg/dL) (70-110) mg/dL Hemoglobin A1c 8.5 H (<=6.0) % C-Reactive Protein 1.0 H (<1.0) mg/dL Total Protein 5.3 L (6.3-8.2) g/dL Albumin 2.9 L (3.5-5.0) g/dL Urine Glucose (UA) (Negative) Ur Leukocyte Esterase (Negative) Uric Acid Crystals (None) /hpf Amorphous Sediment (None) /hpf Urine Mucus (None) /hpf 10/27/23 10/28/23 Range/Units 20:16 06:24 WBC (3.8-10.6) k/uL MCHC (31.0-37.0) g/dL Neutrophils # (1.3-7.7) k/uL Lymphocytes # (1.0-4.8) k/uL Sodium (137-145) mmol/L BUN (9-20) mg/dL Creatinine (0.66-1.25) mg/dL Glucose (74-99) mg/dL POC Glucose (mg/dL) 419 H 121 H (70-110) mg/dL Hemoglobin A1c (<=6.0) % C-Reactive Protein (<1.0) mg/dL Total Protein (6.3-8.2) g/dL Albumin (3.5-5.0) g/dL Urine Glucose (UA) (Negative) Ur Leukocyte Esterase (Negative) Uric Acid Crystals (None) /hpf Amorphous Sediment (None) /hpf Urine Mucus (None) /hpf
[2023-10-28 16:40] LABS: Glucose,Whole Blood 328 mg/dL (70-110)
--- NOTE | 2023-10-28 19:00 | P.PN ---
Subjective Progress Note Date: 10/28/23 Principal diagnosis: Reason for follow-up is right lower extremity cellulitis and question of pneumonia Patient is a 83-year-old male with a past medical history significant for diabetes mellitus hypertension hyperlipidemia COPD atrial fibrillation pneumonia prostate disorder patient has been brought into the hospital for evaluation of increasing shortness of breath and right leg swelling with concern for right lower extremity cellulitis and possible pneumonia. On today's evaluation that is 10/28/2023,the patient denies any fever or any chills, patient is breathing comfortably on 3 L current oxygen, the patient denies chest pain shortness of breath and no significant cough, patient denies abdominal pain, no nausea vomiting or diarrhea, the patient right lower extremity swelling redness has improved. Consult Surgery Left Upper Extremity. Patient White Count Is 18.7 Creatinine Is 1.35. Objective - Vital Signs Vital signs: Vital Signs Temp 97.1 F L 10/28/23 04:15 Pulse 72 10/28/23 04:15 Resp 20 10/28/23 04:15 BP 108/68 10/28/23 04:15 Pulse Ox 95 10/28/23 04:15 FiO2 Intake & Output 10/27/23 10/28/23 10/28/23 18:59 06:59 18:59 Intake Total 1140 Output Total 750 400 Balance 390 -400 Weight 64.5 kg 70.5 kg Intake: Oral 1140 Output: Urine 750 400 Other: Voiding Method External Catheter External Catheter - Exam GENERAL DESCRIPTION: An elderly male lying in bed in no distress RESPIRATORY SYSTEM: Unlabored breathing , decreased breath sounds at bases HEART: S1 S2 regular rate and rhythm , ABDOMEN: Soft , no tenderness EXTREMITIES: Right lower extremity slight erythema which is warm to touch - Labs CBC & Chem 7: 10/28/23 08:56 10/28/23 08:56 Labs: Abnormal Lab Results - Last 24 Hours (Table) 10/27/23 10/27/23 10/27/23 Range/Units 11:13 12:00 16:08 WBC (3.8-10.6) k/uL MCHC (31.0-37.0) g/dL Neutrophils # (1.3-7.7) k/uL Lymphocytes # (1.0-4.8) k/uL Sodium (137-145) mmol/L BUN (9-20) mg/dL Creatinine (0.66-1.25) mg/dL Glucose (74-99) mg/dL POC Glucose (mg/dL) 262 H 300 H (70-110) mg/dL Hemoglobin A1c (<=6.0) % C-Reactive Protein (<1.0) mg/dL Total Protein (6.3-8.2) g/dL Albumin (3.5-5.0) g/dL Urine Glucose (UA) 4+ H (Negative) Ur Leukocyte Esterase Trace H (Negative) Uric Acid Crystals Occasional H (None) /hpf Amorphous Sediment Rare H (None) /hpf Urine Mucus Rare H (None) /hpf 10/27/23 10/27/23 10/27/23 Range/Units 16:10 16:10 16:10 WBC 14.6 H (3.8-10.6) k/uL MCHC 30.6 L (31.0-37.0) g/dL Neutrophils # 13.8 H (1.3-7.7) k/uL Lymphocytes # 0.3 L (1.0-4.8) k/uL Sodium 136 L (137-145) mmol/L BUN 38 H (9-20) mg/dL Creatinine 1.47 H (0.66-1.25) mg/dL Glucose 304 H (74-99) mg/dL POC Glucose (mg/dL) (70-110) mg/dL Hemoglobin A1c 8.5 H (<=6.0) % C-Reactive Protein 1.0 H (<1.0) mg/dL Total Protein 5.3 L (6.3-8.2) g/dL Albumin 2.9 L (3.5-5.0) g/dL Urine Glucose (UA) (Negative) Ur Leukocyte Esterase (Negative) Uric Acid Crystals (None) /hpf Amorphous Sediment (None) /hpf Urine Mucus (None) /hpf 10/27/23 10/28/23 Range/Units 20:16 06:24 WBC (3.8-10.6) k/uL MCHC (31.0-37.0) g/dL Neutrophils # (1.3-7.7) k/uL Lymphocytes # (1.0-4.8) k/uL Sodium (137-145) mmol/L BUN (9-20) mg/dL Creatinine (0.66-1.25) mg/dL Glucose (74-99) mg/dL POC Glucose (mg/dL) 419 H 121 H (70-110) mg/dL Hemoglobin A1c (<=6.0) % C-Reactive Protein (<1.0) mg/dL Total Protein (6.3-8.2) g/dL Albumin (3.5-5.0) g/dL Urine Glucose (UA) (Negative) Ur Leukocyte Esterase (Negative) Uric Acid Crystals (None) /hpf Amorphous Sediment (None) /hpf Urine Mucus (None) /hpf Assessment and Plan (1) Abnormal chest x-ray Current Visit: Yes Status: Acute Code(s): R93.89 - ABNORMAL FINDINGS ON DX IMAGING OF OTH BODY STRUCTURES SNOMED Code(s): 804262594 (2) Leukocytosis Current Visit: No Status: Acute Code(s): D72.829 - ELEVATED WHITE BLOOD CELL COUNT, UNSPECIFIED SNOMED Code(s): 153298207 (3) Cellulitis of leg, right Current Visit: Yes Status: Acute Code(s): L03.115 - CELLULITIS OF RIGHT LOWER LIMB SNOMED Code(s): 08024549791498997 Plan: 1patient presented to hospital with increasing shortness of breath lower extremity swelling questionable of fluid overload CHF as the patient did have a bilateral effusion swelling to the lower extremity which is red and warm to touch 2-patient did have negative UA done this admission, leukocytosis possibly steroid related and will monitor closely 3 patient did have a component of right leg cellulitis, patient currently being treated cefazolin and monitor clinical course closely at the bedside questions were answered Dictation was produced using [employer] dictation software. please excuse any grammatical, word or spelling errors. Time with Patient: Less than 30
[2023-10-28 20:21] LABS: Glucose,Whole Blood 222 mg/dL (70-110)
[2023-10-28] MEDS ORDERED: ONDANSETRON 4 MG/2 ML VIAL IVP PRN (20:21)
[2023-10-28] MEDS: NYSTATIN 100,000 UNIT/GM OINT 30 GM TUBE TOPICAL SCH (20:33)
[2023-10-28] MEDS ORDERED: VANCOMYCIN TROUGH DUE 1 EACH MISC MISCELLANE ONE (22:00)
[2023-10-29 06:29] LABS: Glucose,Whole Blood 116 mg/dL (70-110)
--- NOTE | 2023-10-29 09:52 | P.PN ---
Subjective Progress Note Date: 10/29/23 Principal diagnosis: Shortness of breath, leg swelling. Patient is an 83-year-old white male with past medical history significant for COPD, hypertension, hyperlipidemia, atrial fibrillation status post cardiac ablation, heart failure, pleural effusion with previous thoracentesis. Also, has dementia and is technically a poor historian. Presented to the emergency room yesterday afternoon complaining primarily of shortness of breath and lower extremity swelling. Reportedly has been treated outpatient with multiple rounds of antibiotics for pneumonia. Patient is currently being evaluated the emergency department. Not a very good historian. No acute respiratory distres s. Currently on 2 L/min nasal cannula, SpO2 99%. He does have a congested cough. Currently afebrile. He does have significant bilateral lower extremity swelling and his right foot/ankle is erythemic and warm. Venous Doppler of the right lower extremity negative for DVT. Chest x-ray showing pulmonary vascular congestion, small to moderate bilateral pleural effusions with associated atelectasis versus infiltrate. NT proBNP elevated at 2850. CBC: WBC count 12.2, hemoglobin 14.2, hematocrit 43.6, platelets 276. CMP: Sodium 136, potassium 3.7, chloride 102, serum bicarb 28, BUN 48, creatinine 1.49, glucose 220. Lactic peaked at 3 and down to 2.8. Magnesium 1.4. LFTs unremarkable. Troponin 0.038. EKG showing normal sinus rhythm without any obvious acute ischemic changes. Hemodynamically, the patient is stable at this time. Progress note dated October 27, 2023. 83-year-old male well-known to me. He has a history of COPD, hypertension, hyperlipidemia, atrial fibrillation, heart failure, and previous pleural effusion. The patient is also demented. The patient was brought into the emergency department, with complaints of shortness of breath, and lower extremity edema. The patient was thought to have either heart failure, and or pneumonia. The patient's procalcitonin level was 0.12. N-terminal proBNP is 2850. He is on 2 L of oxygen. Saturations are 95%. Zosyn is discontinued. He is getting saline at 10 cc an hour. A glucose of 262. Progress note dated October 28, 2023. 83-year-old male seen in room 358. He is doing better today. He is on 3 L. His is in the room. He is not receiving any IV fluids. Dopplers of the upper extremities were negative bilaterally. The patient was seen by the infectious disease doctor, and even though the procalcitonin level was normal, he started the patient on Ancef for presumed cellulitis of the lower extremity. I believe that is unnecessary. The patient is better from the pulmonary standpoint. Current labs include a white count 18.7, hemoglobin 13.6, hematocrit 41.8, platelet count 296,000. Sodium 137, potassium 3.6, chlorides 100, CO2 31, BUN 39, creatinine 1.35. Calcium is 10.1. Procalcitonin level was 0.12. He tested negative for coronavirus, and Legionella. Progress note dated October 29, 2023. 83-year-old male seen today in room 358. The patient continues on oxygen, at 3 L. He is getting saline at 10 cc an hour. He looks reasonably stable. He does have a congested wet cough. His , who is usually in the room, was not there today. No new labs today other than a glucose of 116. Objective - Vital Signs Vital signs: Vital Signs Temp 97.4 F L 10/29/23 04:00 Pulse 64 10/29/23 08:55 Resp 20 10/29/23 04:00 BP 124/73 10/29/23 04:00 Pulse Ox 94 L 10/29/23 08:42 FiO2 Intake & Output 10/28/23 10/29/23 10/29/23 18:59 06:59 18:59 Intake Total 360 240 Output Total 880 500 Balance -520 -260 Weight 70 kg Intake: Oral 360 240 Output: Urine 880 500 Other: Voiding Method External Catheter External Catheter # Bowel Movements 1 - Exam No acute distress, lethargic, currently on 3 L nasal cannula. Saturations are 94 %. HEENT examination is grossly unremarkable. Neck supple. Full range of motion. No adenopathy thyromegaly or neck vein distention. Cardiovascular examination reveals regular rhythm rate. S1-S2 normal. No S3 or S4. No discernible murmur noted. Heart sounds are distant. Heart rate 64 bpm. Lungs reveal scattered rhonchi and crackles. Breath sounds equal. No wheezes. Breath sounds diminished throughout. Abdomen soft bowel sounds are heard. No masses or tenderness. Extremities are intact. No cyanosis or clubbing. There is 1+ pitting edema. Mild erythema of the lower extremities. Skin is without rash or lesion. Neurologic examination is brief but nonfocal. - Labs CBC & Chem 7: 10/28/23 08:56 10/28/23 08:56 Labs: Abnormal Lab Results - Last 24 Hours (Table) 10/28/23 10/28/23 10/28/23 Range/Units 08:56 08:56 11:41 WBC 18.7 H (3.8-10.6) k/uL Carbon Dioxide 31 H (22-30) mmol/L BUN 39 H (9-20) mg/dL Creatinine 1.35 H (0.66-1.25) mg/dL Glucose 67 L (74-99) mg/dL POC Glucose (mg/dL) 237 H (70-110) mg/dL 10/28/23 10/28/23 10/29/23 Range/Units 16:38 20:19 06:28 WBC (3.8-10.6) k/uL Carbon Dioxide (22-30) mmol/L BUN (9-20) mg/dL Creatinine (0.66-1.25) mg/dL Glucose (74-99) mg/dL POC Glucose (mg/dL) 328 H 222 H 116 H (70-110) mg/dL Assessment and Plan Assessment: Acute hypoxemic respiratory failure, likely related to CHF, doubt pneumonia. Suspect acute CHF exacerbation. Bilateral lower extremity edema. Possible right lower extremity cellulitis. COPD, currently inactive. Acute kidney injury. Elevated troponins, rule out NSTEMI. History of hypertension. History of hyperlipidemia. History of atrial fibrillation, status post cardiac ablation. Bilateral pleural effusions with history of previous bilateral thoracentesis. History of septic arthritis. Plan: Plan dated October 27, 2023. The patient is seen initially in the emergency department, and is seen today, in room 358. The patient was thought to have either heart failure, and or pneumonia. The patient's procalcitonin level was normal. Zosyn will be discontinued. He continues on oxygen at 2 L. Saturations are 95%. The patient's troponins were mildly elevated, and the N-terminal proBNP was elevated as well. He was brought in by his , primarily for lower extremity edema. We will continue to follow. Prognosis is guarded. No additional recommendations are made. Plan dated October 28, 2023. The patient is doing much better today. He is on 3 L. He is sitting up in bed. His is in the room. He is not receiving any IV fluids. The infectious disease doctor started the patient on Ancef for possible cellulitis of the lower extremities. Dopplers of the bilateral upper extremities were negative. We will continue to follow make recommendations. Prognosis is guarded. No additional recommendations are made. Procalcitonin level was normal. Plan dated October 29, 2023. The patient appears reasonably stable. He is on 3 L. Saturations are in the mid 90s. Lower extremity edema is improved. No new labs today other than the glucose as mentioned. We will continue to follow make recommendations. Prognosis is guarded. The patient is currently on Ancef, as per infectious diseases, for presumed lower extremity cellulitis. Time with Patient: Less than 30
[2023-10-29 11:19] LABS: Glucose,Whole Blood 129 mg/dL (70-110)
[2023-10-29 11:57] LABS: Basophils % (A) 0 %; Eosinophils % (A) 0 %; HCT 44.3 % (39.0-53.0); HGB 14.2 gm/dL (13.0-17.5); Hypochromasia Slight; Lymphocytes # (A) 0.4 k/uL (1.0-4.8); Lymphocytes % (A) 2 %; MCH 30.5 pg (25.0-35.0); MCHC 32.1 g/dL (31.0-37.0); MCV 95.1 fL (80.0-100.0); Mean Platelet Volume 8.5; Monocytes # (A) 0.8 k/uL (0-1.0); Monocytes % (A) 4 %; Neutrophils # (A) 16.9 k/uL (1.3-7.7); Neutrophils % (A) 93 %; Platelet Count 246 k/uL (150-450); RBC 4.66 m/uL (4.30-5.90); RDW 13.8 % (11.5-15.5); WBC 18.2 k/uL (3.8-10.6)
[2023-10-29 12:04] LABS: ALT 31 U/L (4-49); AST 53 U/L (17-59); African American GFR (CKD) 57 (>60 ml/min/1.73 sqM); Albumin 2.6 g/dL (3.5-5.0); Alkaline Phosphatase 64 U/L (38-126); Anion Gap 4 mmol/L; Blood Urea Nitrogen 44 mg/dL (9-20); Calcium 9.8 mg/dL (8.4-10.2); Carbon Dioxide 33 mmol/L (22-30); Chloride 100 mmol/L (98-107); Glucose 161 mg/dL (74-99); Non-African American GFR(CKD) 49 (>60 ml/min/1.73 sqM); Potassium 4.2 mmol/L (3.5-5.1); Sodium 137 mmol/L (137-145); Total Bilirubin 0.3 mg/dL (0.2-1.3)
[2023-10-29] MEDS: ACETAMINOPHEN TAB 325 MG TAB PO PRN (12:34)
[2023-10-29 16:33] LABS: Glucose,Whole Blood 262 mg/dL (70-110)
--- NOTE | 2023-10-29 17:09 | P.PN ---
Subjective Progress Note Date: 10/29/23 Interval History: Patient is a 83-year-old male with a history of pneumonia (discharged on 10/23 from [place]), COPD (on 2 L of oxygen at home), diabetes type 2, A-fib (ablation x 1), CHF (55% EF on echo last February 2022), and dementia dementia who came in for bilateral lower extremity swelling with with erythematous changes noted yesterday. Per patient's patient has no known chronic sw elling of send lower extremities but never became this erythematous acutely. Venous Doppler shows a right popliteal cyst, right calf soft tissue swelling and edema, negative for DVT. Chest x-ray shows small to moderate posterior pleural effusions with bibasilar infiltrate. 10/26 patient seen and examined at bedside. Has no new complaints overnight. Denies chest pain, SOB, abd pain, leg pain, LOC, dizziness, or weakness 10/27 patient seen awak and examined at bedside. Has no new complaints ov ernight. Swelling of lower extremities has improved and is not erythematous. Swelling of bilateral upper extremities improved and is not cyanotic. Denies chest pain, shortness of breath, abdominal pain, leg pain, LOC, dizziness, or weakness. Assessment and plan: #. Bilateral lower extremity edema due to chronic venous insufficiency Venous Doppler of bilateral lower extremity shows no DVT. Patient currently stable and asymptomatic -Place on SCD for bilateral lower extremities -Elevate and place on warm compress -Follow up ESR CRP #. Bilateral Pleural effusion, doubt bacterial pneumonia Lower extremity cellulitis: Patient has known history of COPD, and recent pneumonia treated at different facility. Legionella antigen and urine negative. -Per ID, d/c vanomycin due to borderline kidney function, continue zosyn -Continue with Zosyn 3.375 IVPB every 8 hours -Continue with furosemide 40 mg IV every 12 -Discontinue Farxiga for now -Follow up blood cultures -Follow-up sputum culture - CBC at a.m. #Hypoalbuminemia with malnutrition -Order ensure TID -Encourage feeding -CMP at a.m. # Diabetes with hyperglycemia UA show +4 glucose. POC glucose trending from 200-400 overnight. -Insulin sliding scale, low-dose less than 70 kg -Levemir 10u at night -Novolog 2u with meals TID -Check CMP at a.m. #. Acute on chronic diastolic CHF due to A-fib, not in exacerbation Last known echo with ejection fraction 55%. Upper extremity swelling likely due to being fluid overloaded -Continue with furosemide -Discontinue Farxiga for now -Continue with Eliquis 5 mg p.o. twice daily -Continue with spironolactone 25 mg p.o. daily #. Hypomagnesemia Patient currently stable and asymptomatic -Replace magnesium per protocol -follow up magnesium in a.m. #. Elevated troponins, resolved Patient currently stable and asymptomatic. Troponins downtrending. DVT prophylaxis: Eliquis 5mg PO BID GI prophylaxis: Protonix 40 mg p.o. OD Chronic conditions: Hypertension, hyperlipidemia, diabetes, A-fib, dementia, CHF, former smoker Physical examination: Vital signs reviewed General: non toxic, no distress, appears at stated age, normal weight Derm: no unusual rashes/lesions, warm Head: atraumatic, normocephalic, symmetric Eyes: EOMI, no lid lag, anicteric sclera, pupils equal round reactive to light, bilateral yellow mucoid discharge ENT: Nose and ears atraumatic Neck: No cervical lymphadenopathy, trachea midline, supple Mouth: no lip lesion, mucus membranes moist Cardiovascular irregularly irregular, no murmur Lungs: CTA bilateral, rhonchi bilateral in lower lung young, no rales, no accessory muscle use Abdominal: soft, nontender to palpation, no guarding Ext: muscle strength 5 out of 5 in all 4 extremities grossly, no gross muscle atrophy, no contractures, positive dorsalis pedis pulse bilateral, +4 bilateral pitting edema, erythematous; bilateral upper extremities +3 pitting edema Neuro: CN II-XI grossly intact, no gross focal neuro deficits Psych: Alert, oriented, appropriate affect and mood REVIEW OF SYSTEMS: CONSTITUTIONAL: No fever or chills. CARDIOVASCULAR: No chest pain, palpitations or syncope. PULMONARY: No shortness of breath, no cough, sore throat. GASTROINTESTINAL: No nausea, vomiting, diarrhea, abdominal pain. : No Dysuria, urgency, frequency. Extremities: No edema. NEUROLOGICAL: No headaches, no weakness, or numbness Dictation was produced using [employer] software. please excuse any grammatical, word or spelling errors. Objective - Vital Signs Vital signs: Vital Signs Temp 96.9 F L 10/29/23 09:30 Pulse 88 10/29/23 15:54 Resp 16 10/29/23 11:30 BP 109/70 10/29/23 11:30 Pulse Ox 94 L 10/29/23 11:30 FiO2 Intake & Output 10/28/23 10/29/23 10/29/23 18:59 06:59 18:59 Intake Total 360 358 Output Total 880 1000 Balance -520 -642 Weight 70 kg Intake: Oral 360 358 Output: Urine 880 1000 Other: Voiding Method External Catheter External Catheter External Catheter # Bowel Movements 1 - Labs CBC & Chem 7: 10/29/23 10:52 10/29/23 10:52 Labs: Abnormal Lab Results - Last 24 Hours (Table) 10/28/23 10/29/23 10/29/23 Range/Units 20:19 06:28 10:52 WBC 18.2 H (3.8-10.6) k/uL Neutrophils # 16.9 H (1.3-7.7) k/uL Lymphocytes # 0.4 L (1.0-4.8) k/uL Carbon Dioxide (22-30) mmol/L BUN (9-20) mg/dL Creatinine (0.66-1.25) mg/dL Glucose (74-99) mg/dL POC Glucose (mg/dL) 222 H 116 H (70-110) mg/dL Total Protein (6.3-8.2) g/dL Albumin (3.5-5.0) g/dL 10/29/23 10/29/23 10/29/23 Range/Units 10:52 11:17 16:32 WBC (3.8-10.6) k/uL Neutrophils # (1.3-7.7) k/uL Lymphocytes # (1.0-4.8) k/uL Carbon Dioxide 33 H (22-30) mmol/L BUN 44 H (9-20) mg/dL Creatinine 1.32 H (0.66-1.25) mg/dL Glucose 161 H (74-99) mg/dL POC Glucose (mg/dL) 129 H 262 H (70-110) mg/dL Total Protein 5.0 L (6.3-8.2) g/dL Albumin 2.6 L (3.5-5.0) g/dL
--- NOTE | 2023-10-29 18:00 | P.PN ---
Subjective Progress Note Date: 10/29/23 Principal diagnosis: Reason for follow-up is right lower extremity cellulitis and question of pneumonia Patient is a 83-year-old male with a past medical history significant for diabetes mellitus hypertension hyperlipidemia COPD atrial fibrillation pneumonia prostate disorder patient has been brought into the hospital for evaluation of increasing shortness of breath and right leg swelling with concern for right lower extremity cellulitis and possible pneumonia. On today's evaluation that is 10/29/2023,the patient remains to be afebrile, patient is on 3 L nasal cannula supplemental oxygen and denies any shortness of breath no chest pain or cough.Patient denies having any nausea or vomiting, no abdominal pain and no diarrhea has been reported. Patient white count is 18.2, creatinine is 1.32 Objective - Vital Signs Vital signs: Vital Signs Temp 96.9 F L 10/29/23 09:30 Pulse 88 10/29/23 15:54 Resp 16 10/29/23 11:30 BP 109/70 10/29/23 11:30 Pulse Ox 94 L 10/29/23 11:30 FiO2 Intake & Output 10/28/23 10/29/23 10/29/23 18:59 06:59 18:59 Intake Total 360 358 Output Total 880 1000 Balance -520 -642 Weight 70 kg Intake: Oral 360 358 Output: Urine 880 1000 Other: Voiding Method External Catheter External Catheter External Catheter # Bowel Movements 1 - Exam GENERAL DESCRIPTION: An elderly male lying in bed in no distress RESPIRATORY SYSTEM: Unlabored breathing , decreased breath sounds at bases HEART: S1 S2 regular rate and rhythm , ABDOMEN: Soft , no tenderness EXTREMITIES: Right lower extremity slight erythema which is warm to touch - Labs CBC & Chem 7: 10/29/23 10:52 10/29/23 10:52 Labs: Abnormal Lab Results - Last 24 Hours (Table) 10/28/23 10/29/23 10/29/23 Range/Units 20:19 06:28 10:52 WBC 18.2 H (3.8-10.6) k/uL Neutrophils # 16.9 H (1.3-7.7) k/uL Lymphocytes # 0.4 L (1.0-4.8) k/uL Carbon Dioxide (22-30) mmol/L BUN (9-20) mg/dL Creatinine (0.66-1.25) mg/dL Glucose (74-99) mg/dL POC Glucose (mg/dL) 222 H 116 H (70-110) mg/dL Total Protein (6.3-8.2) g/dL Albumin (3.5-5.0) g/dL 10/29/23 10/29/23 10/29/23 Range/Units 10:52 11:17 16:32 WBC (3.8-10.6) k/uL Neutrophils # (1.3-7.7) k/uL Lymphocytes # (1.0-4.8) k/uL Carbon Dioxide 33 H (22-30) mmol/L BUN 44 H (9-20) mg/dL Creatinine 1.32 H (0.66-1.25) mg/dL Glucose 161 H (74-99) mg/dL POC Glucose (mg/dL) 129 H 262 H (70-110) mg/dL Total Protein 5.0 L (6.3-8.2) g/dL Albumin 2.6 L (3.5-5.0) g/dL Assessment and Plan (1) Abnormal chest x-ray Current Visit: Yes Status: Acute Code(s): R93.89 - ABNORMAL FINDINGS ON DX IMAGING OF OTH BODY STRUCTURES SNOMED Code(s): 239338115 (2) Leukocytosis Current Visit: No Status: Acute Code(s): D72.829 - ELEVATED WHITE BLOOD CELL COUNT, UNSPECIFIED SNOMED Code(s): 699668174 (3) Cellulitis of leg, right Current Visit: Yes Status: Acute Code(s): L03.115 - CELLULITIS OF RIGHT LOW ER LIMB SNOMED Code(s): 21824157124075906 Plan: 1patient presented to hospital with increasing shortness of breath lower extremity swelling questionable of fluid overload CHF as the patient did have a bilateral effusion swelling to the lower extremity which is red and warm to touch 2-patient did have negative UA done this admission, leukocytosis possibly steroid related and will monitor closely 3 patient did have a component of right leg cellulitis, patient elevated white count more likely steroid related we will monitor closely and continue with the cefazolin Dictation was produced using [employer] dictation software. please excuse any grammatical, word or spelling errors. Time with Patient: Less than 30
[2023-10-29 20:19] LABS: Glucose,Whole Blood 317 mg/dL (70-110)
[2023-10-29 23:15] LABS: Glucose,Whole Blood 205 mg/dL (70-110)
[2023-10-29] MEDS: FUROSEMIDE 10 MG/ML 4 ML VIAL IV STA (23:17)
[2023-10-29] MEDS ORDERED: DILTIAZEM 125 MG in SODIUM CHLORIDE 0.9% 100 ML IV SCH (23:45)
--- NOTE | 2023-10-29 23:59 | XR ---
EXAMINATION TYPE: XR chest 1V portable DATE OF EXAM: 10/29/2023 CLINICAL HISTORY: Difficulty breathing progress study. TECHNIQUE: Single AP portable upright view of the chest is obtained. COMPARISON: Chest x-ray from 3 days earlier FINDINGS: Small to moderate-sized right greater than left pleural effusions remain present. Persiste nt moderate central vascular congestion and interstitial edema. Cardiac sludge size stable and upper limits of normal. Osseous structures are intact. IMPRESSION: Findings consistent with fluid overload state remain present. No significant change from most recent prior.
[2023-10-30] MEDS: DILTIAZEM DRIP BOLUS FROM BAG 1 MG SOLN IV ONE (00:10)
[2023-10-30] MEDS: DILTIAZEM 125 MG in SODIUM CHLORIDE 0.9% 100 ML IV SCH (00:11)
[2023-10-30 06:20] LABS: Glucose,Whole Blood 162 mg/dL (70-110)
[2023-10-30 08:04] LABS: African American GFR (CKD) 54 (>60 ml/min/1.73 sqM); Anion Gap 7 mmol/L; Blood Urea Nitrogen 47 mg/dL (9-20); Calcium 10.4 mg/dL (8.4-10.2); Carbon Dioxide 31 mmol/L (22-30); Chloride 101 mmol/L (98-107); Glucose 113 mg/dL (74-99); Non-African American GFR(CKD) 47 (>60 ml/min/1.73 sqM); Sodium 139 mmol/L (137-145)
[2023-10-30 08:28] LABS: Basophils % (A) 0 %; Eosinophils % (A) 0 %; HCT 48.7 % (39.0-53.0); HGB 15.3 gm/dL (13.0-17.5); Hypochromasia Moderate; Lymphocytes # (A) 0.2 k/uL (1.0-4.8); Lymphocytes % (A) 1 %; MCH 30.6 pg (25.0-35.0); MCHC 31.4 g/dL (31.0-37.0); MCV 97.2 fL (80.0-100.0); Mean Platelet Volume 8.3; Monocytes % (A) 4 %; Neutrophils # (A) 23.3 k/uL (1.3-7.7); Neutrophils % (A) 95 %; Platelet Count 249 k/uL (150-450); RDW 13.9 % (11.5-15.5); WBC 24.6 k/uL (3.8-10.6)
--- NOTE | 2023-10-30 10:16 | P.PN ---
Subjective Progress Note Date: 10/30/23 Principal diagnosis: Shortness of breath, leg swelling. Patient is an 83-year-old white male with past medical history significant for COPD, hypertension, hyperlipidemia, atrial fibrillation status post cardiac ablation, heart failure, pleural effusion with previous thoracentesis. Also, has dementia and is technically a poor historian. Presented to the emergency room yesterday afternoon complaining primarily of shortness of breath and lower extremity swelling. Reportedly has been treated outpatient with multiple rounds of antibiotics for pneumonia. Patient is currently being evaluated the emergency department. Not a very good historian. No acute respiratory distres s. Currently on 2 L/min nasal cannula, SpO2 99%. He does have a congested cough. Currently afebrile. He does have significant bilateral lower extremity swelling and his right foot/ankle is erythemic and warm. Venous Doppler of the right lower extremity negative for DVT. Chest x-ray showing pulmonary vascular congestion, small to moderate bilateral pleural effusions with associated atelectasis versus infiltrate. NT proBNP elevated at 2850. CBC: WBC count 12.2, hemoglobin 14.2, hematocrit 43.6, platelets 276. CMP: Sodium 136, potassium 3.7, chloride 102, serum bicarb 28, BUN 48, creatinine 1.49, glucose 220. Lactic peaked at 3 and down to 2.8. Magnesium 1.4. LFTs unremarkable. Troponin 0.038. EKG showing normal sinus rhythm without any obvious acute ischemic changes. Hemodynamically, the patient is stable at this time. Progress note dated October 27, 2023. 83-year-old male well-known to me. He has a history of COPD, hypertension, hyperlipidemia, atrial fibrillation, heart failure, and previous pleural effusion. The patient is also demented. The patient was brought into the emergency department, with complaints of shortness of breath, and lower extremity edema. The patient was thought to have either heart failure, and or pneumonia. The patient's procalcitonin level was 0.12. N-terminal proBNP is 2850. He is on 2 L of oxygen. Saturations are 95%. Zosyn is discontinued. He is getting saline at 10 cc an hour. A glucose of 262. Progress note dated October 28, 2023. 83-year-old male seen in room 358. He is doing better today. He is on 3 L. His is in the room. He is not receiving any IV fluids. Dopplers of the upper extremities were negative bilaterally. The patient was seen by the infectious disease doctor, and even though the procalcitonin level was normal, he started the patient on Ancef for presumed cellulitis of the lower extremity. I believe that is unnecessary. The patient is better from the pulmonary standpoint. Current labs include a white count 18.7, hemoglobin 13.6, hematocrit 41.8, platelet count 296,000. Sodium 137, potassium 3.6, chlorides 100, CO2 31, BUN 39, creatinine 1.35. Calcium is 10.1. Procalcitonin level was 0.12. He tested negative for coronavirus, and Legionella. Progress note dated October 29, 2023. 83-year-old male seen today in room 358. The patient continues on oxygen, at 3 L. He is getting saline at 10 cc an hour. He looks reasonably stable. He does have a congested wet cough. His , who is usually in the room, was not there today. No new labs today other than a glucose of 116. Progress note dated October 30, 2023. 83-year-old male seen today in room 358. The patient's is in the room, and she is very tearful. Apparently last night, the patient had an episode of a trial fibrillation with RVR. The patient was seen by the housestaff. Currently he is on 4 L of oxygen. He is also getting Cardizem at 5 mg an hour. The EKG showed evidence of atrial fibrillation with RVR. Today we had a long talk with the patient's , about CODE STATUS. The patient is now a no code. He would not want to be on life support. Current labs include a white count 24.6, hemogl obin 15.3, hematocrit 48.7, and a platelet count is normal. Sodium 139, potassium 4, chlorides 101, CO2 31, BUN 47, and creatinine 1.37. Glucose is 113. Calcium is 10.4. Chest x-ray is consistent with fluid overload. It was done on October 28. Objective - Vital Signs Vital signs: Vital Signs Temp 97.0 F L 10/30/23 08:00 Pulse 85 10/30/23 09:48 Resp 26 H 10/30/23 09:48 BP 107/75 10/30/23 08:00 Pulse Ox 95 10/30/23 09:34 FiO2 Intake & Output 10/29/23 10/30/23 10/30/23 18:59 06:59 18:59 Intake Total 476 Output Total 1425 400 Balance -949 -400 Weight 50.5 kg Intake: Oral 476 Output: Urine 1425 400 Other: Voiding Method External Catheter External Catheter # Voids 3 # Bowel Movements 1 1 - Exam No acute distress, lethargic, currently on 4 L nasal cannula. Saturations are 93 %. HEENT examination is grossly unremarkable. Neck supple. Full range of motion. No adenopathy thyromegaly or neck vein distention. Cardiovascular examination reveals regular rhythm rate. S1-S2 normal. No S3 or S4. No discernible murmur noted. Heart sounds are distant. Heart rate 85 bpm. Lungs reveal scattered rhonchi and crackles. Breath sounds equal. No wheezes. Breath sounds diminished throughout. Abdomen soft bowel sounds are heard. No masses or tenderness. Extremities are intact. No cyanosis or clubbing. There is 1+ pitting edema. Mild erythema of the lower extremities. Skin is without rash or lesion. Neurologic examination is brief but nonfocal. - Labs CBC & Chem 7: 10/30/23 06:41 10/30/23 06:41 Labs: Abnormal Lab Results - Last 24 Hours (Table) 10/29/23 10/29/23 10/29/23 Range/Units 10:52 10:52 11:17 WBC 18.2 H (3.8-10.6) k/uL Neutrophils # 16.9 H (1.3-7.7) k/uL Lymphocytes # 0.4 L (1.0-4.8) k/uL Carbon Dioxide 33 H (22-30) mmol/L BUN 44 H (9-20) mg/dL Creatinine 1.32 H (0.66-1.25) mg/dL Glucose 161 H (74-99) mg/dL POC Glucose (mg/dL) 129 H (70-110) mg/dL Calcium (8.4-10.2) mg/dL Total Protein 5.0 L (6.3-8.2) g/dL Albumin 2.6 L (3.5-5.0) g/dL 10/29/23 10/29/23 10/29/23 Range/Units 16:32 20:18 23:13 WBC (3.8-10.6) k/uL Neutrophils # (1.3-7.7) k/uL Lymphocytes # (1.0-4.8) k/uL Carbon Dioxide (22-30) mmol/L BUN (9-20) mg/dL Creatinine (0.66-1.25) mg/dL Glucose (74-99) mg/dL POC Glucose (mg/dL) 262 H 317 H 205 H (70-110) mg/dL Calcium (8.4-10.2) mg/dL Total Protein (6.3-8.2) g/dL Albumin (3.5-5.0) g/dL 10/30/23 10/30/23 10/30/23 Range/Units 06:18 06:41 06:41 WBC 24.6 H (3.8-10.6) k/uL Neutrophils # 23.3 H (1.3-7.7) k/uL Lymphocytes # 0.2 L (1.0-4.8) k/uL Carbon Dioxide 31 H (22-30) mmol/L BUN 47 H (9-20) mg/dL Creatinine 1.37 H (0.66-1.25) mg/dL Glucose 113 H (74-99) mg/dL POC Glucose (mg/dL) 162 H (70-110) mg/dL Calcium 10.4 H (8.4-10.2) mg/dL Total Protein (6.3-8.2) g/dL Albumin (3.5-5.0) g/dL Assessment and Plan Assessment: Acute hypoxemic respiratory failure, likely related to CHF, doubt pneumonia. Paroxysmal atrial fibrillation with rapid ventricular response. Suspect acute CHF exacerbation. Bilateral lower extremity edema. Possible right lower extremity cellulitis. COPD, currently inactive. Acute kidney injury. Elevated troponins, rule out NSTEMI. History of hypertension. History of hyperlipidemia. History of atrial fibrillation, status post cardiac ablation. Bilateral pleural effusions with history of previous bilateral thoracentesis. History of septic arthritis. Plan: Plan dated October 27, 2023. The patient is seen initially in the emergency department, and is seen today, in room 358. The patient was thought to have either heart failure, and or pneumonia. The patient's procalcitonin level was normal. Zosyn will be discontinued. He continues on oxygen at 2 L. Saturations are 95%. The chun ent's troponins were mildly elevated, and the N-terminal proBNP was elevated as well. He was brought in by his , primarily for lower extremity edema. We will continue to follow. Prognosis is guarded. No additional recommendations are made. Plan dated October 28, 2023. The patient is doing much better today. He is on 3 L. He is sitting up in bed. His is in the room. He is not receiving any IV fluids. The infectious disease doctor started the patient on Ancef for possible cellulitis of the lower extremities. Dopplers of the bilateral upper extremities were negative. We will continue to follow make recommendations. Prognosis is guarded. No additional recommendations are made. Procalcitonin level was normal. Plan dated October 29, 2023. The patient appears reasonably stable. He is on 3 L. Saturations are in the mid 90s. Lower extremity edema is improved. No new labs today other than the glucose as mentioned. We will continue to follow make recommendations. Prognosis is guarded. The patient is currently on Ancef, as per infectious diseases, for presumed lower extremity cellulitis. Plan dated October 30, 2023. The patient had an episode of respiratory difficulty, caused by atrial fibrillation/RVR. Patient was placed on Cardizem, and is currently at 5 mg an hour. Labs, x-rays, and medications are reviewed. We had a long conversation with the patient's , who makes medical decisions for her . She agrees to DNR, as he would not want to be on life support. I believe that to be appropriate, given his age of 83, and his worsening dementia. We will continue to follow. No additional recommendations are made. Prognosis is guarded. Time with Patient: Less than 30
[2023-10-30 11:33] LABS: Glucose,Whole Blood 204 mg/dL (70-110)
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
[2023-10-30] MEDS: DILTIAZEM ORAL 30 MG TAB PO SCH (13:51)
[2023-10-30 16:35] LABS: Glucose,Whole Blood 191 mg/dL (70-110)
[2023-10-30] MEDS: ZINC OXIDE PASTE (Z-GUARD) 1 APPLIC TOPICAL PRN (17:05)
--- NOTE | 2023-10-30 18:01 | P.PN ---
Subjective Patient is a 83-year-old male with a history of pneumonia (discharged on 10/23 from [place]), COPD (on 2 L of oxygen at home), diabetes type 2, A-fib (ablation x 1), CHF (55% EF on echo last February 2022), and dementia dementia who came in for bilateral lower extremity swelling with with erythematous changes noted yesterday. Per patient's patient has no known chronic swelling of send lower extremities but never became this erythematous acutely. Venous Doppler shows a right popliteal cyst, right calf soft tissue swelling and edema, negative for DVT. Chest x-ray shows small to moderate posterior pleural effusions with bibasilar infiltrate. 10/26 patient seen and examined at bedside. Has no new complaints overnight. Denies chest pain, SOB, abd pain, leg pain, LOC, dizziness, or weakness 10/27 patient seen awake and examined at bedside. Has no new complaints overnight. Swelling of lower extremities has improved and is not erythematous. Swelling of bilateral upper extremities improved and is not cyanotic. Denies chest pain, shortness of breath, abdominal pain, leg pain, LOC, dizziness, or weakness. 10/29 Patient seen awake and examined at bedside. Had an episode of A-fib with RVR overnight with a heart rate of 110s to 150s per RN with associated abdominal breathing requiring 3 L of oxygen and hypertensive at 176/94. At current, patient is short of breath O2 sat 93% at 6 L with congested cough. Family would like to discuss hospice options for patient and has changed code status to NO CODE. Review of systems: Pertinent positives and negatives as discussed in HPI, a complete review of systems was performed and all other systems are negative. Physical examination: Vital signs reviewed General: non toxic, in mild distress, appears at stated age, normal weight Derm: no unusual rashes/lesions, warm Head: atraumatic, normocephalic, symmetric Eyes: EOMI, no lid lag, anicteric sclera, pupils equal round reactive to light, bilateral yellow mucoid discharge ENT: Nose and ears atraumatic Neck: No cervical lymphadenopathy, trachea midline, supple Mouth: no lip lesion, mucus membranes moist Cardiovascular irregularly irregular, no murmur Lungs: Bibasilar crackles, with accessory muscle use Abdominal: soft, nontender to palpation, no guarding Ext: muscle strength 5 out of 5 in all 4 extremities grossly, no gross muscle atrophy, no contractures, positive dorsalis pedis pulse bilateral, +4 bilateral pitting edema, erythematous; bilateral upper extremities +3 pitting edema Neuro: CN II-XI grossly intact, no gross focal neuro deficits Psych: Alert, oriented, appropriate affect and mood Assessment/Plan: #. Bilateral lower extremity edema due to chronic venous insufficiency Venous Doppler of bilateral lower extremity shows no DVT. Patient currently stable and asymptomatic -Place on SCD for bilateral lower extremities -Elevate and place on warm compress #. Bilateral Pleural effusion, due to bacterial pneumonia Patient has known history of COPD, and recent pneumonia treated at different facility. Legionella antigen and urine negative. WBC trending upward at 24.6. Chest x-ray on 10/29 shows small to moderate bilateral pleural effusions. -Per ID, d/c vanomycin due to borderline kidney function. On Kefzol 2g IVPB q8 -Continue with furosemide 40 mg IV every 12 -CBC at a.m. -Consult hospice # Hypoalbuminemia with malnutrition, improving Patient tolerating oral intake. -Order ensure TID -Encourage feeding # Diabetes with hyperglycemia, controlled UA show +4 glucose. POC glucose trending from 160-200 -Insulin sliding scale, low-dose less than 70 kg -Levemir 10u at night -Novolog 2u with meals TID -Check CMP at a.m. #. Chronic CHF due to A-fib, not in exacerbation Last known echo with ejection fraction 55%. Upper extremity swelling likely due to being fluid overloaded -Continue with furosemide 40mg IV -Discontinue Farxiga for now -Continue with Eliquis 5 mg p.o. twice daily -Continue with spironolactone 25 mg p.o. daily #. Hypomagnesemia, resolved Patient currently stable and asymptomatic. Magnesium at 2.0 on 10/28 #. Elevated troponins, resolved Patient currently stable and asymptomatic. Troponins downtrending. DVT prophylaxis: Eliquis 5mg PO BID GI prophylaxis: Protonix 40 mg p.o. OD Chronic conditions: Hypertension, hyperlipidemia, diabetes, A-fib, dementia, CHF, former smoker Attestation: I have personally seen and examined the patient with Resident, reviewed the documentation and participated and agree with the assessment and plan as written. Objective - Vital Signs Vital signs: Vital Signs Temp 97.4 F L 10/30/23 03:37 Pulse 82 10/30/23 06:05 Resp 24 10/30/23 06:05 BP 104/73 10/30/23 06:05 Pulse Ox 98 10/30/23 06:05 FiO2 Intake & Output 10/29/23 10/30/23 10/30/23 18:59 06:59 18:59 Intake Total 476 Output Total 1425 400 Balance -949 -400 Weight 50.5 kg Intake: Oral 476 Output: Urine 1425 400 Other: Voiding Method External Catheter External Catheter # Voids 3 # Bowel Movements 1 1 - Labs CBC & Chem 7: 10/31/23 07:34 10/31/23 07:34 Labs: Abnormal Lab Results - Last 24 Hours (Table) 10/29/23 10/29/23 10/29/23 Range/Units 10:52 10:52 11:17 WBC 18.2 H (3.8-10.6) k/uL Neutrophils # 16.9 H (1.3-7.7) k/uL Lymphocytes # 0.4 L (1.0-4.8) k/uL Carbon Dioxide 33 H (22-30) mmol/L BUN 44 H (9-20) mg/dL Creatinine 1.32 H (0.66-1.25) mg/dL Glucose 161 H (74-99) mg/dL POC Glucose (mg/dL) 129 H (70-110) mg/dL Total Protein 5.0 L (6.3-8.2) g/dL Albumin 2.6 L (3.5-5.0) g/dL 10/29/23 10/29/23 10/29/23 Range/Units 16:32 20:18 23:13 WBC (3.8-10.6) k/uL Neutrophils # (1.3-7.7) k/uL Lymphocytes # (1.0-4.8) k/uL Carbon Dioxide (22-30) mmol/L BUN (9-20) mg/dL Creatinine (0.66-1.25) mg/dL Glucose (74-99) mg/dL POC Glucose (mg/dL) 262 H 317 H 205 H (70-110) mg/dL Total Protein (6.3-8.2) g/dL Albumin (3.5-5.0) g/dL 10/30/23 Range/Units 06:18 WBC (3.8-10.6) k/uL Neutrophils # (1.3-7.7) k/uL Lymphocytes # (1.0-4.8) k/uL Carbon Dioxide (22-30) mmol/L BUN (9-20) mg/dL Creatinine (0.66-1.25) mg/dL Glucose (74-99) mg/dL POC Glucose (mg/dL) 162 H (70-110) mg/dL Total Protein (6.3-8.2) g/dL Albumin (3.5-5.0) g/dL
[2023-10-30 19:58] LABS: Glucose,Whole Blood 271 mg/dL (70-110)
--- NOTE | 2023-10-30 21:05 | P.PN ---
Subjective Progress Note Date: 10/30/23 Principal diagnosis: Reason for follow-up is right lower extremity cellulitis and question of pneumonia Patient is a 83-year-old male with a past medical history significant for diabetes mellitus hypertension hyperlipidemia COPD atrial fibrillation pneumonia prostate disorder patient has been brought into the hospital for evaluation of increasing shortness of breath and right leg swelling with concern for right lower extremity cellulitis and possible pneumonia. On today's evaluation that is 10/30/2023, the patient continues to be afebrile, the patient is on 4 L nasal cannula oxygen and breathing comfortably, the Pt denies having any chest pain or cough, the patient denies having any abdominal pain no vomiting or any diarrhea has been reported by the nursing staff. Patient white count is up to 24.6, creatinine is 1.37 Objective - Vital Signs Vital signs: Vital Signs Temp 97.9 F 10/30/23 11:52 Pulse 78 10/30/23 13:12 Resp 20 10/30/23 11:52 BP 107/67 10/30/23 11:52 Pulse Ox 97 10/30/23 11:52 FiO2 Intake & Output 10/29/23 10/30/23 10/30/23 18:59 06:59 18:59 Intake Total 476 68.333 Output Total 1425 400 Balance -949 -400 68.333 Weight 50.5 kg Intake: Intake, IV Titration 68.333 Amount Diltiazem 125 mg In 68.333 Sodium Chloride 0.9% 100 ml @ 5 MG/HR 5 mls/hr IV .Q24H [facility] Rx#:[id number] Oral 476 Output: Urine 1425 400 Other: Voiding Method External Catheter External Catheter External Catheter # Voids 3 # Bowel Movements 1 1 - Exam GENERAL DESCRIPTION: An elderly male lying in bed in no distress RESPIRATORY SYSTEM: Unlabored breathing , decreased breath sounds at bases HEART: S1 S2 regular rate and rhythm , ABDOMEN: Soft , no tenderness EXTREMITIES: Right lower extremity slight erythema which is warm to touch - Labs CBC & Chem 7: 10/30/23 06:41 10/30/23 06:41 Labs: Abnormal Lab Results - Last 24 Hours (Table) 10/29/23 10/29/23 10/29/23 Range/Units 16:32 20:18 23:13 WBC (3.8-10.6) k/uL Neutrophils # (1.3-7.7) k/uL Lymphocytes # (1.0-4.8) k/uL Carbon Dioxide (22-30) mmol/L BUN (9-20) mg/dL Creatinine (0.66-1.25) mg/dL Glucose (74-99) mg/dL POC Glucose (mg/dL) 262 H 317 H 205 H (70-110) mg/dL Calcium (8.4-10.2) mg/dL 10/30/23 10/30/23 10/30/23 Range/Units 06:18 06:41 06:41 WBC 24.6 H (3.8-10.6) k/uL Neutrophils # 23.3 H (1.3-7.7) k/uL Lymphocytes # 0.2 L (1.0-4.8) k/uL Carbon Dioxide 31 H (22-30) mmol/L BUN 47 H (9-20) mg/dL Creatinine 1.37 H (0.66-1.25) mg/dL Glucose 113 H (74-99) mg/dL POC Glucose (mg/dL) 162 H (70-110) mg/dL Calcium 10.4 H (8.4-10.2) mg/dL 10/30/23 Range/Units 11:31 WBC (3.8-10.6) k/uL Neutrophils # (1.3-7.7) k/uL Lymphocytes # (1.0-4.8) k/uL Carbon Dioxide (22-30) mmol/L BUN (9-20) mg/dL Creatinine (0.66-1.25) mg/dL Glucose (74-99) mg/dL POC Glucose (mg/dL) 204 H (70-110) mg/dL Calcium (8.4-10.2) mg/dL Assessment and Plan (1) Abnormal chest x-ray Current Visit: Yes Status: Acute Code(s): R93.89 - ABNORMAL FINDINGS ON DX IMAGING OF OTH BODY STRUCTURES SNOMED Code(s): 483536716 (2) Leukocytosis Current Visit: No Status: Acute Code(s): D72.829 - ELEVATED WHITE BLOOD CELL COUNT, UNSPECIFIED SNOMED Code(s): 589492585 (3) Cellulitis of leg, right Current Visit: Yes Status: Acute Code(s): L03.115 - CELLULITIS OF RIGHT LOWER LIMB SNOMED Code(s): 60987130245050142 Plan: 1patient presented to hospital with increasing shortness of breath lower extremity swelling questionable of fluid overload CHF as the patient did have a bilateral effusion swelling to the lower extremity which is red and warm to touch 2-patient leukocytosis possibly steroid related with Solu-Medrol discontinued today expect the white count to trend down will repeat CBC with a.m. lab 3 patient did have a component of right leg cellulitis, for which the patient is covered with cefazolin Dictation was produced using [employer] dictation software. please excuse any grammatical, word or spelling errors. Time with Patient: Less than 30
[2023-10-31 06:24] LABS: Glucose,Whole Blood 137 mg/dL (70-110)
[2023-10-31 07:53] LABS: Basophils % (A) 0 %; Eosinophils # (A) 0.1 k/uL (0-0.7); Eosinophils % (A) 1 %; HCT 40.9 % (39.0-53.0); HGB 13.3 gm/dL (13.0-17.5); Hypochromasia Slight; Lymphocytes # (A) 0.5 k/uL (1.0-4.8); Lymphocytes % (A) 4 %; MCH 30.9 pg (25.0-35.0); MCHC 32.4 g/dL (31.0-37.0); MCV 95.3 fL (80.0-100.0); Mean Platelet Volume 8.1; Monocytes # (A) 0.6 k/uL (0-1.0); Monocytes % (A) 5 %; Neutrophils # (A) 11.6 k/uL (1.3-7.7); Neutrophils % (A) 90 %; Platelet Count 224 k/uL (150-450); RBC 4.29 m/uL (4.30-5.90); RDW 13.8 % (11.5-15.5); WBC 12.9 k/uL (3.8-10.6)
[2023-10-31 08:19] LABS: ALT 11 U/L (4-49); AST 28 U/L (17-59); Albumin 2.7 g/dL (3.5-5.0); Alkaline Phosphatase 58 U/L (38-126); Anion Gap -1 mmol/L; Blood Urea Nitrogen 46 mg/dL (9-20); Calcium 10.5 mg/dL (8.4-10.2); Carbon Dioxide 37 mmol/L (22-30); Chloride 103 mmol/L (98-107); Glucose 119 mg/dL (74-99); Sodium 139 mmol/L (137-145); Total Bilirubin 0.4 mg/dL (0.2-1.3); Total Protein 5.1 g/dL (6.3-8.2)
[2023-10-31 08:20] LABS: African American GFR (CKD) 59 (>60 ml/min/1.73 sqM); Non-African American GFR(CKD) 51 (>60 ml/min/1.73 sqM)
[2023-10-31 12:01] LABS: Glucose,Whole Blood 156 mg/dL (70-110)
--- NOTE | 2023-10-31 12:30 | P.PN ---
Subjective HISTORY OF PRESENT ILLNESS: Patient is a pleasant 83-year-old male with significant past medical history of COPD, paroxysmal atrial fibrillation, hypertension, hyperlipidemia, congestive heart failure, and lymphedema who was admitted with complaints of right ankle cellulitis, shortness of breath, cough. He does follow with Dr. Welsh in the office. Over the past 3 weeks he has had multiple admissions here at [facility] however, system was down and reports are unavailable currently. He was also admitted at [facility] with shortness of breath and pneumonia. Cardiology was consulted for episode of A-fib with RVR overnight. He reports that last night he was feeling more short of breath and was found to be in A-fib with RVR, a team was called. He was started on a Cardizem drip and increased on his oxygen. He is back in the normal sinus rhythm now. Prior to a month ago he had been doing well and had been at home getting around with a cane. He denies any chest pain or pressure. Lower extremity swelling has improved. He did have a prior heart catheterization 05/2021 which showed mild CAD with 20-30% proximal LAD stenosis. 10/31/2023 Patient examined this morning at the bedside. Patient currently denies chest pain or pressure. Patient currently denies shortness of breath. Telemetry reveals atrial fibrillation with heart rate around 100. Patient has been having runs of nonsustained ventricular tachycardia. Echocardiogram completed in the office in July 2023 revealed ejection fraction 55%, mild aortic regurgitation, mild tricuspid regurgitation, severely increased pulmonary artery systolic pressure with RVSP 70 mmHg. Patient did have a recent echocardiogram performed here. Spoke with color laboratory technician who stated LV function was normal, no wall motion abnormalities, and pleural effusion was noted. PHYSICAL EXAM: VITAL SIGNS: Reviewed. GENERAL: Well-developed in no acute distress. NECK: Supple. No JVD or thyromegaly LUNGS: Respirations even and unlabored. Lungs essentially clear to auscultation bilaterally. HEART: Irregular rate and rhythm. S1 and S2 heard. EXTREMITIES: Normal range of motion. No clubbing or cyanosis. Peripheral pulses intact. No lower extremity edema ASSESSMENT: Paroxysmal atrial fibrillation Acute on chronic congestive heart failure with preserved EF Nonsustained ventricular tachycardia Recent hospitalization at [place] for pneumonia Hypertension Hyperlipidemia COPD History of lymphedema PLAN: Discontinue oral Cardizem Increase metoprolol succinate to 50 mg twice a day Avoid amiodarone Continue IV Lasix 40 mg every 12 hours Daily weights, accurate intake and output, and monitoring of kidney function Eliquis placed on hold today per pulmonary Further recommendations pending patient course Nurse practitioner note has been reviewed by physician. Signing provider agrees with the documented findings, assessment, and plan of care documented by DRILLING INSPECTOR as a scribe. Objective - Vital Signs Vital signs: Vital Signs Temp 97.3 F L 10/31/23 08:47 Pulse 66 10/31/23 08:47 Resp 22 10/31/23 08:47 BP 99/64 10/31/23 08:47 Pulse Ox 97 10/31/23 08:47 FiO2 Intake & Output 10/30/23 10/31/23 10/31/23 18:59 06:59 18:59 Intake Total 186.333 Output Total 201 Balance 186.333 -201 Weight 65.5 kg Intake: Intake, IV Titration 68.333 Amount Diltiazem 125 mg In 68.333 Sodium Chloride 0.9% 100 ml @ 5 MG/HR 5 mls/hr IV .Q24H [facility] Rx#:[id number] Oral 118 Output: Urine 200 Stool 1 Other: Voiding Method External Catheter External Catheter Diaper Incontinent # Voids 1 2 # Bowel Movements 1 1 - Labs CBC & Chem 7: 10/31/23 07:34 10/31/23 07:34 Labs: Abnormal Lab Results - Last 24 Hours (Table) 10/30/23 10/30/23 10/31/23 Range/Units 16:34 19:56 06:18 WBC (3.8-10.6) k/uL RBC (4.30-5.90) m/uL Neutrophils # (1.3-7.7) k/uL Lymphocytes # (1.0-4.8) k/uL Carbon Dioxide (22-30) mmol/L BUN (9-20) mg/dL Creatinine (0.66-1.25) mg/dL Glucose (74-99) mg/dL POC Glucose (mg/dL) 191 H 271 H 137 H (70-110) mg/dL Calcium (8.4-10.2) mg/dL Total Protein (6.3-8.2) g/dL Albumin (3.5-5.0) g/dL 10/31/23 10/31/23 10/31/23 Range/Units 07:34 07:34 12:00 WBC 12.9 H (3.8-10.6) k/uL RBC 4.29 L (4.30-5.90) m/uL Neutrophils # 11.6 H (1.3-7.7) k/uL Lymphocytes # 0.5 L (1.0-4.8) k/uL Carbon Dioxide 37 H (22-30) mmol/L BUN 46 H (9-20) mg/dL Creatinine 1.28 H (0.66-1.25) mg/dL Glucose 119 H (74-99) mg/dL POC Glucose (mg/dL) 156 H (70-110) mg/dL Calcium 10.5 H (8.4-10.2) mg/dL Total Protein 5.1 L (6.3-8.2) g/dL Albumin 2.7 L (3.5-5.0) g/dL
--- NOTE | 2023-10-31 13:41 | P.PN ---
Subjective Progress Note Date: 10/31/23 Patient is an 83-year-old white male with past medical history significant for COPD, hypertension, hyperlipidemia, atrial fibrillation status post cardiac ablation, heart failure, pleural effusion with previous thoracentesis. Also, has dementia and is technically a poor historian. Presented to the emergency room yesterday afternoon complaining primarily of shortness of breath and lower extremity swelling. Reportedly has been treated outpatient with multiple rounds of antibiotics for pneumonia. Patient is currently being evaluated the emergency department. Not a very good historian. No acute respiratory distress. Currently on 2 L/min nasal cannula, SpO2 99%. He does have a congested cough. Currently afebrile. He does have significant bilateral lower extremity swelling and his right foot/ankle is erythemic and warm. Venous Doppler of the right lower extremity negative for DVT. Chest x-ray showing pulmonary vascular congestion, small to moderate bilateral pleural effusions with associated atelectasis versus infiltrate. NT proBNP elevated at 2850. CBC: WBC count 12.2, hemoglobin 14.2, hematocrit 43.6, platelets 276. CMP: Sodium 136, potassium 3.7, chloride 102, serum bicarb 28, BUN 48, creatinine 1.49, glucose 220. Lactic peaked at 3 and down to 2.8. Magnesium 1.4. LFTs unremarkable. Troponin 0.038. EKG showing normal sinus rhythm without any obvious acute ischemic changes. Hemodynamically, the patient is stable at this time. Progress note dated October 27, 2023. 83-year-old male well-known to me. He has a history of COPD, hypertension, hyperlipidemia, atrial fibrillation, heart failure, and previous pleural effusion. The patient is also demented. The patient was brought into the emergency department, with complaints of shortness of breath, and lower ext remity edema. The patient was thought to have either heart failure, and or pneumonia. The patient's procalcitonin level was 0.12. N-terminal proBNP is 2850. He is on 2 L of oxygen. Saturations are 95%. Zosyn is discontinued. He is getting saline at 10 cc an hour. A glucose of 262. Progress note dated October 28, 2023. 83-year-old male seen in room 358. He is doing better today. He is on 3 L. His is in the room. He is not receiving any IV fluids. Dopplers of the upper extremities were negative bilaterally. The patient was seen by the infectious disease doctor, and even though the procalcitonin level was normal, he started the patient on Ancef for presumed cellulitis of the lower extremity. I believe that is unnecessary. The patient is better from the pulmonary standpoint. Current labs include a white count 18.7, hemoglobin 13.6, hematocrit 41.8, platelet count 296,000. Sodium 137, potassium 3.6, chlorides 100, CO2 31, BUN 39, creatinine 1.35. Calcium is 10.1. Procalcitonin level was 0.12. He tested negative for coronavirus, and Legionella. Progress note dated October 29, 2023. 83-year-old male seen today in room 358. The patient continues on oxygen, at 3 L. He is getting saline at 10 cc an hour. He looks reasonably stable. He does have a congested wet cough. His , who is usually in the room, was not there today. No new labs today other than a glucose of 116. Progress note dated October 30, 2023. 83-year-old male seen today in room 358. The patient's is in the room, and she is very tearful. Apparently last night, the patient had an episode of atrial fibrillation with RVR. The patient was seen by the housestaff. Currently he is on 4 L of oxygen. He is also getting Cardizem at 5 mg an hour. The EKG showed evidence of atrial fibrillation with RVR. Today we had a long talk with the patient's , about CODE STATUS. The patient is now a no code. He would not want to be on life support. Current labs include a white count 24.6, hemoglobin 15.3, hematocrit 48.7, and a platelet count is normal. Sodium 139, potassium 4, chlorides 101, CO2 31, BUN 47, and creatinine 1.37. Glucose is 113. Calcium is 10.4. Chest x-ray is consistent with fluid overload. It was done on October 28. On today's evaluation of 11/03/2023, the patient remains on oxygen 4 L/min nasal cannula. The patient is known to have congestion heart failure, COPD, paroxysmal atrial fibrillation, hypertension hyperlipidemia. The patient is sandie ng seen for shortness of breath. Noted the patient was hospitalized earlier to [facility] in [facility] for shortness of breath and pneumonia. He did encounter A-fib RVR, placed on a Cardizem drip and currently is rate is under better control. Hemodynamically stable and the patient is afebrile. The patient remains on Toprol 50 mg p.o. twice a day. The patient is also on Symbicort and DuoNeb nebulized treatments [id number]. Rest of the home medications have been resumed. Remains on insulin 10 units at bedtime and 2 units with meals and a sliding scale coverage. In terms of labs, the white circles of 12.9 with a heme of 13.3, BUN is 46 with a creatinine of 1.28 and a sodium levels of 139. His creatinine is gradually improved. Noted his cardiac catheterization from May 2021 showed mild CAD with 20 to 30% proximal LAD stenosis. The patient has a preserved LV function. Most recent chest x-ray from 10/29/2023 showed evidence of fluid overload with small to moderate-sized right-sided effusion and left-sided pleural effusion. Noted the patient has undergone a previous thoracentesis back in 2022 and the fluid itself was a transudate. For now, he is on IV Lasix 40 mg every 12 hours. He is in a negative fluid balance for now. Objective - Vital Signs Vital signs: Vital Signs Temp 97.3 F L 10/31/23 08:47 Pulse 66 10/31/23 08:47 Resp 22 10/31/23 08:47 BP 99/64 10/31/23 08:47 Pulse Ox 97 10/31/23 08:47 FiO2 Intake & Output 10/30/23 10/31/23 10/31/23 18:59 06:59 18:59 Intake Total 186.333 Balance 186.333 Weight 65.5 kg Intake: Intake, IV Titration 68.333 Amount Diltiazem 125 mg In 68.333 Sodium Chloride 0.9% 100 ml @ 5 MG/HR 5 mls/hr IV .Q24H [facility] Rx#:[id number] Oral 118 Other: Voiding Method External Catheter External Catheter Diaper Incontinent # Voids 1 2 # Bowel Movements 1 1 - Exam No acute distress, lethargic, currently on 4 L nasal cannula. Saturations are 93 %. HEENT examination is grossly unremarkable. Neck supple. Full range of motion. No adenopathy thyromegaly or neck vein distention. Cardiovascular examination reveals regular rhythm rate. S1-S2 normal. No S3 or S4. No discernible murmur noted. Heart sounds are distant. Lungs reveal scattered rhonchi and crackles. Breath sounds equal. No wheezes. Breath sounds diminished throughout. Abdomen soft bowel sounds are heard. No masses or tenderness. Extremities are intact. No cyanosis or clubbing. There is 1+ pitting edema. M ild erythema of the lower extremities. Skin is without rash or lesion. Neurologic examination is brief but nonfocal. - Labs CBC & Chem 7: 10/31/23 07:34 10/31/23 07:34 Labs: Abnormal Lab Results - Last 24 Hours (Table) 10/30/23 10/30/23 10/30/23 Range/Units 11:31 16:34 19:56 WBC (3.8-10.6) k/uL RBC (4.30-5.90) m/uL Neutrophils # (1.3-7.7) k/uL Lymphocytes # (1.0-4.8) k/uL Carbon Dioxide (22-30) mmol/L BUN (9-20) mg/dL Creatinine (0.66-1.25) mg/dL Glucose (74-99) mg/dL POC Glucose (mg/dL) 204 H 191 H 271 H (70-110) mg/dL Calcium (8.4-10.2) mg/dL Total Protein (6.3-8.2) g/dL Albumin (3.5-5.0) g/dL 10/31/23 10/31/23 10/31/23 Range/Units 06:18 07:34 07:34 WBC 12.9 H (3.8-10.6) k/uL RBC 4.29 L (4.30-5.90) m/uL Neutrophils # 11.6 H (1.3-7.7) k/uL Lymphocytes # 0.5 L (1.0-4.8) k/uL Carbon Dioxide 37 H (22-30) mmol/L BUN 46 H (9-20) mg/dL Creatinine 1.28 H (0.66-1.25) mg/dL Glucose 119 H (74-99) mg/dL POC Glucose (mg/dL) 137 H (70-110) mg/dL Calcium 10.5 H (8.4-10.2) mg/dL Total Protein 5.1 L (6.3-8.2) g/dL Albumin 2.7 L (3.5-5.0) g/dL Assessment and Plan Plan: Acute hypoxemic respiratory failure, likely related to CHF, doubt pneumonia. The patient has bilateral pleural effusion right more than left and the patient is currently on oxygen 4 L/min nasal cannula. Previous history of MRSA pleural effusion requiring thoracentesis evacuation of 1.8 L of pleural fluid from the right back in 2022 and the fluid was a transudate. Paroxysmal atrial fibrillation with controlled rate for now. Acute decompensated CHF, preserved LV function Bilateral lower extremity edema. COPD, currently inactive. Acute kidney injury, creatinine is gradually improving Elevated troponins, rule out NSTEMI. History of hypertension. History of hyperlipidemia. History of atrial fibrillation, status post cardiac ablation. Bilateral pleural effusions with history of previous bilateral thoracentesis. History of septic arthritis. Cellulitis of the lower extremity, clinically suspected and the patient is currently on IV cefazolin Plan: The patient is currently on 4 L of oxygen by nasal cannula Cardizem drip has been discontinued Continue Lasix 40 mg IV every 12 hours Repeat chest x-ray in the morning Consider thoracentesis if no improvement in oxygenation and this will be essentially to give the patient some symptomatic relief She agrees to DNR, as he would not want to be on life support. I believe that to be appropriate, given his age of 83, and his worsening dementia. We will co chito to follow. Should be able to obtain copies of his recent echocardiogram from [facility] a few weeks back. His cardiac rhythm is sinus.
--- NOTE | 2023-10-31 15:49 | P.PN ---
Subjective Progress Note Date: 10/31/23 Principal diagnosis: Reason for follow-up is right lower extremity cellulitis and question of pneumonia Patient is a 83-year-old male with a past medical history significant for diabetes mellitus hypertension hyperlipidemia COPD atrial fibrillation pneumonia prostate disorder patient has been brought into the hospital for evaluation of increasing shortness of breath and right leg swelling with concern for right lower extremity cellulitis and possible pneumonia. On today's evaluation that is 10/31/2023, Patient is afebrile patient is currently on 4 L nasal cannula oxygen and denies having any shortness of breath, the patient denies any chest pain or cough, the patient denies any nausea vomiting did not have any abdominal pain and no diarrhea, right lower extremity swelling redness decreased. Patient white count is down to 12.9, creatinine is 1.28 Objective - Vital Signs Vital signs: Vital Signs Temp 97.5 F L 10/31/23 15:46 Pulse 85 10/31/23 15:46 Resp 22 10/31/23 15:46 BP 102/68 10/31/23 15:46 Pulse Ox 97 10/31/23 15:46 FiO2 Intake & Output 10/30/23 10/31/23 10/31/23 18:59 06:59 18:59 Intake Total 186.333 Output Total 201 Balance 186.333 -201 Weight 65.5 kg Intake: Intake, IV Titration 68.333 Amount Diltiazem 125 mg In 68.333 Sodium Chloride 0.9% 100 ml @ 5 MG/HR 5 mls/hr IV .Q24H [facility] Rx#:[id number] Oral 118 Output: Urine 200 Stool 1 Other: Voiding Method External Catheter External Catheter Diaper Incontinent External Catheter # Voids 1 2 2 # Bowel Movements 1 1 1 - Exam GENERAL DESCRIPTION: An elderly male lying in bed in no distress RESPIRATORY SYSTEM: Unlabored breathing , decreased breath sounds at bases HEART: S1 S2 regular rate and rhythm , ABDOMEN: Soft , no tenderness EXTREMITIES: Right lower extremity slight erythema which is warm to touch - Labs CBC & Chem 7: 10/31/23 07:34 10/31/23 07:34 Labs: Abnormal Lab Results - Last 24 Hours (Table) 10/30/23 10/30/23 10/31/23 Range/Units 16:34 19:56 06:18 WBC (3.8-10.6) k/uL RBC (4.30-5.90) m/uL Neutrophils # (1.3-7.7) k/uL Lymphocytes # (1.0-4.8) k/uL Carbon Dioxide (22-30) mmol/L BUN (9-20) mg/dL Creatinine (0.66-1.25) mg/dL Glucose (74-99) mg/dL POC Glucose (mg/dL) 191 H 271 H 137 H (70-110) mg/dL Calcium (8.4-10.2) mg/dL Total Protein (6.3-8.2) g/dL Albumin (3.5-5.0) g/dL 10/31/23 10/31/23 10/31/23 Range/Units 07:34 07:34 12:00 WBC 12.9 H (3.8-10.6) k/uL RBC 4.29 L (4.30-5.90) m/uL Neutrophils # 11.6 H (1.3-7.7) k/uL Lymphocytes # 0.5 L (1.0-4.8) k/uL Carbon Dioxide 37 H (22-30) mmol/L BUN 46 H (9-20) mg/dL Creatinine 1.28 H (0.66-1.25) mg/dL Glucose 119 H (74-99) mg/dL POC Glucose (mg/dL) 156 H (70-110) mg/dL Calcium 10.5 H (8.4-10.2) mg/dL Total Protein 5.1 L (6.3-8.2) g/dL Albumin 2.7 L (3.5-5.0) g/dL Assessment and Plan (1) Abnormal chest x-ray Current Visit: Yes Status: Acute Code(s): R93.89 - ABNORMAL FINDINGS ON DX IMAGING OF OTH BODY STRUCTURES SNOMED Code(s): 160061176 (2) Leukocytosis Current Visit: No Status: Acute Code(s): D72.829 - ELEVATED WHITE BLOOD CELL COUNT, UNSPECIFIED SNOMED Code(s): 980025826 (3) Cellulitis of leg, right Current Visit: Yes Status: Acute Code(s): L03.115 - CELLULITIS OF RIGHT LOWER LIMB SNOMED Code(s): 61439984415011414 Plan: 1patient presented to hospital with increasing shortness of breath lower extremity swelling questionable of fluid overload CHF as the patient did have a bilateral effusion swelling to the lower extremity which is red and warm to touch 2-patient leukocytosis possibly steroid related with Solu-Medrol white count did come down to 12,000 today after discoloration of Solu-Medrol yesterday 3 patient did have a component of right leg cellulitis, for which the patient is covered with cefazolin with the plan to finish therapy with oral Keflex Dictation was produced using [employer] dictation software. please excuse any grammatical, word or spelling errors. Time with Patient: Less than 30
[2023-10-31 16:31] LABS: Glucose,Whole Blood 132 mg/dL (70-110)
[2023-10-31 19:54] LABS: Glucose,Whole Blood 203 mg/dL (70-110)
[2023-10-31] MEDS: METOPROLOL SUCCINATE (ER) 50 MG TAB.ER.24H PO SCH (20:07)
--- NOTE | 2023-10-31 23:51 | P.PN ---
Subjective Progress Note Date: 10/31/23 HISTORY OF PRESENT ILLNESS: 83-year-old with active medical history of congestive heart failure with worsening exacerbation both systolic and diastolic, history of COPD, history of hypertension, hyperlipidemia, atrial fibrillation postcardiac ablation, chronic pleural effusion with previous history of thoracentesis, chronic dementia, history of anasarca and worsening edema required diuretics on and off, chronic kidney disease with worsening symptoms with diuretics, he has been in the hospital since October 24 shortly after he was admitted to [facility] for almost a week for similar complaint which patient has been in this time for worsening shortness of breath edema with anasarca. Continue to see pulmonary critical care, continue to see cardiology, infectious disease nephrology. Patient still on 4 L of O2 try to keep his pulse ox above 90 percentile, had an episode of A-fib with RVR was initiated on Cardizem drip 5 mg an hour apparently change her CODE STATUS yesterday to DO NOT RESUSCITATE with his lab value from last 24 hours hemoglobin still stable but white blood cell 24,600 continue to have chronic kidney disease with GFR of 30. Chest x-ray consistent with fluid overload. Continue to treat patient with aggressive management for his anasarca and CHF still been treated for COPD as well as pleural effusion looks like multi subspecialist follow-up for the last 2 years with recurrent episode require seen patient in almost on weekly basis and multi hospitalization. Biggest at this point at least finally the made him DO NOT RESUSCITATE will continue to work toward palliative care by the time you leave the hospital this time. Patient is debilitated without she has been agreeable to take him home or he required to go to rehab is to be determined. REVIEW OF SYSTEMS: CONSTITUTIONAL: Elderly mild respiratory distress EYES: No icterus sclerae, no conjunctivitis. EARS, NOSE, MOUTH, THROAT, and FACE: No sore throat, lymphadenopathy, carotid bruits or deformity. RESPIRATORY: Positive shortness of breath cough and wheezes. CARDIOVASCULAR: Positive PND orthopnea palpitation. GASTROINTESTINAL: No Abd pain, Nausea or vomiting, no Diarrhea or constipation, No GI Bleed, no distention or masses. GENITOURINARY: Negative for Hematuria or UTI, no kidney stones. INTEGUMENT/BREAST: Negative for any muscular injury with mild osteoarthritis.. HEMATOLOGIC/LYMPHATIC: Negative for bleed or purpura. MUSCULOSKELTAL: Negative for Myalgia or arthralgia. NEURLOGICAL: No LOC, Sz or syncope, blurred vision dizziness or abnormality.. BEHAVIORAL/PSYCH: Negative. ENDOCRINE: Negative. PHYSICAL EXAMINATION: General Appearance: Alert, cooperative, mild respiratory distress. Neck HEENT: Supple, no lymphadenopathy, no thyroid enlargement, no carotid bruits. Lungs: Decreased breath sound bilaterally especially the right side past 5 rhonchi with crackles present at expected wheezes. Chest Wall: Chest wall normal expansion with deep inspiration no tenderness and no deformity was found on exam, no costochondral pain or discomfort. Heart: Irregular rhythm and rate , S1, S2 normal, no murmur, rub or gallop. Back: Symmetric, no curvature, ROM normal, no CVA tenderness. Abdomen: Soft, non-tender, bowel sounds active all four quadrants, no masses, no organomegaly. Extremities: Extremities normal, atraumatic, no cyanosis or positive edema. Skin: Skin color, texture, tugor normal, no rashes or lesions. Neurologic: Alert oriented x3 cranial nerves II through XII intact, no motor deficit, no abnormal balance or gait. ASSESSMENT AND PLAN: _Acute hypoxic respiratory failure secondary to CHF and mild COPD with A-fib: Continue current treatment management with O2 aggressive treatment for CHF and A-fib. _Combination of systolic and diastolic congestive heart failure: Still seeing cardiology and remain on combination of furosemide 40 mg IV twice a day along with spironolactone 25 mg daily if his blood pressure will allow probably will benefit from Entresto as well still on metoprolol apparently had reaction to GLP-1 product. _A-fib with RVR: With chronic history of atrial fibrillation remain on Eliquis currently still on Cardizem drip switch to Cardizem orally and still on metoprolol pulse rate is better since. _Anasarca and bilateral edema: Remain on higher albumin intake with furosemide 40 mg IV twice a day and spironolactone. _COPD remain on O2 and updraft treatment he is not in any exacerbation. _Acute kidney injury: Creatinine stabilized at 1.37 with GFR still running in the 30s. _Bilateral pleural effusion with previous history of bilateral thoracentesis stable at this point. _Right leg cellulitis: Remain on cefazolin. Still seen infectious disease. _CODE STATUS: DO NOT RESUSCITATE. _GI prophylaxis still on PPI. _Discussion: Patient is still on aggressive management for systolic diastolic congestive heart failure along with anasarca and combination of possible pneumonia and cellulitis the patient was made DO NOT RESUSCITATE last 24 hours and upon his discharge probably would benefit from going on palliative care furthermore discussion probably and hospice will be a good idea. Objective - Vital Signs Vital signs: Vital Signs Temp 97.9 F 10/31/23 03:52 Pulse 70 10/31/23 03:52 Resp 18 10/31/23 03:52 BP 127/66 10/31/23 03:52 Pulse Ox 97 10/31/23 03:52 FiO2 Intake & Output 10/30/23 10/30/23 10/31/23 06:59 18:59 06:59 Intake Total 186.333 Output Total 400 Balance -400 186.333 Weight 50.5 kg 65.5 kg Intake: Intake, IV Titration 68.333 Amount Diltiazem 125 mg In 68.333 Sodium Chloride 0.9% 100 ml @ 5 MG/HR 5 mls/hr IV .Q24H [facility] Rx#:[id number] Oral 118 Output: Urine 400 Other: Voiding Method External Catheter External Catheter External Catheter # Voids 3 1 2 # Bowel Movements 1 1 1 - Labs CBC & Chem 7: 10/31/23 07:34 10/31/23 07:34 Labs: Abnormal Lab Results - Last 24 Hours (Table) 10/30/23 10/30/23 10/30/23 Range/Units 06:18 06:41 06:41 WBC 24.6 H (3.8-10.6) k/uL Neutrophils # 23.3 H (1.3-7.7) k/uL Lymphocytes # 0.2 L (1.0-4.8) k/uL Carbon Dioxide 31 H (22-30) mmol/L BUN 47 H (9-20) mg/dL Creatinine 1.37 H (0.66-1.25) mg/dL Glucose 113 H (74-99) mg/dL POC Glucose (mg/dL) 162 H (70-110) mg/dL Calcium 10.4 H (8.4-10.2) mg/dL 10/30/23 10/30/23 10/30/23 Range/Units 11:31 16:34 19:56 WBC (3.8-10.6) k/uL Neutrophils # (1.3-7.7) k/uL Lymphocytes # (1.0-4.8) k/uL Carbon Dioxide (22-30) mmol/L BUN (9-20) mg/dL Creatinine (0.66-1.25) mg/dL Glucose (74-99) mg/dL POC Glucose (mg/dL) 204 H 191 H 271 H (70-110) mg/dL Calcium (8.4-10.2) mg/dL
[2023-11-01 06:24] LABS: Glucose,Whole Blood 31 mg/dL (70-110)
[2023-11-01 06:24] LABS: Glucose,Whole Blood 36 mg/dL (70-110)
[2023-11-01] MEDS: DEXTROSE 50% SYRINGE 50 ML IVP PRN ×2 (06:26→06:45)
[2023-11-01 06:43] LABS: Glucose,Whole Blood 68 mg/dL (70-110)
[2023-11-01 07:01] LABS: Glucose,Whole Blood 127 mg/dL (70-110)
--- NOTE | 2023-11-01 07:54 | XR ---
EXAMINATION TYPE: XR chest 1V DATE OF EXAM: 11/01/2023 COMPARISON: 10/29/2023 HISTORY: Shortness of breath TECHNIQUE: Single frontal view of the chest is obtained. FINDINGS: Diffuse pleural parenchymal changes are stable with bilateral effusions and consolidation. No pneumothorax. Diffuse osteopenia, degenerative change of the spine and arthropathy of the shoulde r. IMPRESSION: Diffuse pleural parenchymal changes are stable could represents CHF with pulmonary edema . Diffuse pneumonia in the differential diagnosis.
[2023-11-01 11:08] LABS: Glucose,Whole Blood 265 mg/dL (70-110)
--- NOTE | 2023-11-01 12:32 | P.PN ---
Subjective HISTORY OF PRESENT ILLNESS: Patient is a pleasant 83-year-old male with significant past medical history of COPD, paroxysmal atrial fibrillation, hypertension, hyperlipidemia, congestive heart failure, and lymphedema who was admitted with complaints of right ankle cellulitis, shortness of breath, cough. He does follow with Dr. Welsh in the office. Over the past 3 weeks he has had multiple admissions here at [facility] however, system was down and reports are unavailable currently. He was also admitted at [facility] with shortness of breath and pneumonia. Cardiology was consulted for episode of A-fib with RVR overnight. He reports that last night he was feeling more short of breath and was found to be in A-fib with RVR, a team was called. He was started on a Cardizem drip and increased on his oxygen. He is back in the normal sinus rhythm now. Prior to a month ago he had been doing well and had been at home getting around with a cane. He denies any chest pain or pressure. Lower extremity swelling has improved. He did have a prior heart catheterization 05/2021 which showed mild CAD with 20-30% proximal LAD stenosis. 10/31/2023 Patient examined this morning at the bedside. Patient currently denies chest pain or pressure. Patient currently denies shortness of breath. Telemetry reveals atrial fibrillation with heart rate around 100. Patient has been having runs of nonsustained ventricular tachycardia. Echocardiogram completed in the office in July 2023 revealed ejection fraction 55%, mild aortic regurgitation, mild tricuspid regurgitation, severely increased pulmonary artery systolic pressure with RVSP 70 mmHg. Patient did have a recent echocardiogram performed here. Spoke with emanations analysis technician who stated LV function was normal, no wall motion abnormalities, and pleural effusion was noted. 11/01/2023 Patient examined this morning the bedside. Patient currently denies chest pain or pressure. He reports shortness of breath. He remains on IV Lasix. PHYSICAL EXAM: VITAL SIGNS: Reviewed. GENERAL: Well-developed in no acute distress. NECK: Supple. No JVD or thyromegaly LUNGS: Respirations even and unlabored. Lungs essentially clear to auscultation bilaterally. HEART: Irregular rate and rhythm. S1 and S2 heard. EXTREMITIES: Normal range of motion. No clubbing or cyanosis. Peripheral pulses intact. No lower extremity edema ASSESSMENT: Paroxysmal atrial fibrillation Acute on chronic congestive heart failure with preserved EF Nonsustained ventricular tachycardia Recent hospitalization at [facility] for pneumonia Hypertension Hyperlipidemia COPD History of lymphedema PLAN: Continue current dose of metoprolol Avoid amiodarone Continue IV Lasix 40 mg every 12 hours Daily weights, accurate intake and output, and monitoring of kidney function Awaiting BMP. If kidney function and potassium remain stable, recommend increasing Aldactone to 50 mg daily Eliquis placed on hold per pulmonary for possible thoracentesis Further recommendations pending patient course Nurse practitioner note has been reviewed by physician. Signing provider agrees with the documented findings, assessment, and plan of care documented by TEACHERS' ASSISTANT as a scribe. Objective - Vital Signs Vital signs: Vital Signs Temp 97.2 F L 11/01/23 03:45 Pulse 92 11/01/23 08:00 Resp 18 11/01/23 08:00 BP 147/80 11/01/23 08:00 Pulse Ox 94 L 11/01/23 08:00 FiO2 Intake & Output 10/31/23 11/01/23 11/01/23 18:59 06:59 18:59 Intake Total 240 Output Total 401 450 1 Balance -401 -450 239 Weight 58.5 kg Intake: Oral 240 Output: Urine 400 450 Stool 1 1 Other: Voiding Method Diaper Diaper Diaper Incontinent Incontinent Incontinent External Catheter External Catheter External Catheter # Voids 2 1 # Bowel Movements 1 - Labs CBC & Chem 7: 10/31/23 07:34 10/31/23 07:34 Labs: Abnormal Lab Results - Last 24 Hours (Table) 10/31/23 10/31/23 11/01/23 Range/Units 16:29 19:52 06:21 POC Glucose (mg/dL) 132 H 203 H 31 L* (70-110) mg/dL 11/01/23 11/01/23 11/01/23 Range/Units 06:23 06:41 07:00 POC Glucose (mg/dL) 36 L* 68 L 127 H (70-110) mg/dL 11/01/23 Range/Units 11:06 POC Glucose (mg/dL) 265 H (70-110) mg/dL
--- NOTE | 2023-11-01 13:55 | FL ---
Exam Date: 11/01/2023 1:13 PM. Modified barium swallow for dysphagia. Consistencies administered: Various consistency of barium. Fluoro time: 2.08 FL TIME No images were sent to PACS. Please see speech pathology report. DAP: 115.61 DAP mGym2 Gycm2
--- NOTE | 2023-11-01 14:28 | US ---
EXAMINATION TYPE: US chest DATE OF EXAM: 11/01/2023 COMPARISON: same day x-ray CLINICAL INDICATION: Male, 83 years old with history of Killian for thoracentesis; bilat effusions TECHNIQUE: Targeted ultrasound of the posterior lower bilateral hemithoraces EXAM MEASUREMENTS: Right Pleural Effusion pocket size: 19.9 cm Right skin surface to fluid distance: 2.3 cm Left Pleural Effusion pocket size: 9.7 cm Left skin surface to fluid distance: 1.8 cm Right side marked for possible thoracentesis outside the dept. Left side marked for possible thoracentesis outside the dept. Pulmonologists are able to review the images in the patient?s EMR. exam limited by limited patient mobility IMPRESSIONS: Bilateral pleural effusions.
[2023-11-01 15:18] LABS: African American GFR (CKD) 79 (>60 ml/min/1.73 sqM); Anion Gap 0 mmol/L; Blood Urea Nitrogen 42 mg/dL (9-20); Calcium 10.1 mg/dL (8.4-10.2); Carbon Dioxide 32 mmol/L (22-30); Chloride 102 mmol/L (98-107); Glucose 219 mg/dL (74-99); Non-African American GFR(CKD) 68 (>60 ml/min/1.73 sqM); Potassium 4.4 mmol/L (3.5-5.1); Sodium 134 mmol/L (137-145)
--- NOTE | 2023-11-01 15:46 | XR ---
EXAMINATION TYPE: XR chest 1V DATE OF EXAM: 11/01/2023 COMPARISON: 11/01/2023 HISTORY: 83 year-old male post thoracentesis on the right TECHNIQUE: Single frontal view of the chest is obtained. FINDINGS: Heart borderline in size. Diffuse interstitial density. Hazy bilateral lung densities have diminished. Ongoing small to moderate left pleural effusion with adjacent opacity. Residual small ri ght pleural effusion. No appreciable pneumothorax. IMPRESSION: 1. Interval decrease in the right pleural effusion. A residual small right pleural effusion remains. No appreciable pneumothorax. 2. Similar small to moderate left pleural effusion. 3. Possible background vascular congestion.
[2023-11-01 16:13] LABS: Glucose,Whole Blood 161 mg/dL (70-110)
[2023-11-01 20:06] LABS: Glucose,Whole Blood 195 mg/dL (70-110)
--- NOTE | 2023-11-01 20:32 | P.PN ---
Subjective Progress Note Date: 11/01/23 Patient is an 83-year-old white male with past medical history significant for COPD, hypertension, hyperlipidemia, atrial fibrillation status post cardiac ablation, heart failure, pleural effusion with previous thoracentesis. Also, has dementia and is technically a poor historian. Presented to the emergency room yesterday afternoon complaining primarily of shortness of breath and lower extremity swelling. Reportedly has been treated outpatient with multiple rounds of antibiotics for pneumonia. Patient is currently being evaluated the emergency department. Not a very good historian. No acute respiratory distress. Currently on 2 L/min nasal cannula, SpO2 99%. He does have a congested cough. Currently afebrile. He does have significant bilateral lower extremity swelling and his right foot/ankle is erythemic and warm. Venous Doppler of the right lower extremity negative for DVT. Chest x-ray showing pulmonary vascular congestion, small to moderate bilateral pleural effusions with associated atelectasis versus infiltrate. NT proBNP elevated at 2850. CBC: WBC count 12.2, hemoglobin 14.2, hematocrit 43.6, platelets 276. CMP: Sodium 136, potassium 3.7, chloride 102, serum bicarb 28, BUN 48, creatinine 1.49, glucose 220. Lactic peaked at 3 and down to 2.8. Magnesium 1.4. LFTs unremarkable. Troponin 0.038. EKG showing normal sinus rhythm without any obvious acute ischemic changes. Hemodynamically, the patient is stable at this time. Progress note dated October 27, 2023. 83-year-old male well-known to me. He has a history of COPD, hypertension, hyperlipidemia, atrial fibrillation, heart failure, and previous pleural effusion. The patient is also demented. The patient was brought into the emergency department, with complaints of shortness of breath, and lower ext remity edema. The patient was thought to have either heart failure, and or pneumonia. The patient's procalcitonin level was 0.12. N-terminal proBNP is 2850. He is on 2 L of oxygen. Saturations are 95%. Zosyn is discontinued. He is getting saline at 10 cc an hour. A glucose of 262. Progress note dated October 28, 2023. 83-year-old male seen in room 358. He is doing better today. He is on 3 L. His is in the room. He is not receiving any IV fluids. Dopplers of the upper extremities were negative bilaterally. The patient was seen by the infectious disease doctor, and even though the procalcitonin level was normal, he started the patient on Ancef for presumed cellulitis of the lower extremity. I believe that is unnecessary. The patient is better from the pulmonary standpoint. Current labs include a white count 18.7, hemoglobin 13.6, hematocrit 41.8, platelet count 296,000. Sodium 137, potassium 3.6, chlorides 100, CO2 31, BUN 39, creatinine 1.35. Calcium is 10.1. Procalcitonin level was 0.12. He tested negative for coronavirus, and Legionella. Progress note dated October 29, 2023. 83-year-old male seen today in room 358. The patient continues on oxygen, at 3 L. He is getting saline at 10 cc an hour. He looks reasonably stable. He does have a congested wet cough. His , who is usually in the room, was not there today. No new labs today other than a glucose of 116. Progress note dated October 30, 2023. 83-year-old male seen today in room 358. The patient's is in the room, and she is very tearful. Apparently last night, the patient had an episode of atrial fibrillation with RVR. The patient was seen by the housestaff. Currently he is on 4 L of oxygen. He is also getting Cardizem at 5 mg an hour. The EKG showed evidence of atrial fibrillation with RVR. Today we had a long talk with the patient's , about CODE STATUS. The patient is now a no code. He would not want to be on life support. Current labs include a white count 24.6, hemoglobin 15.3, hematocrit 48.7, and a platelet count is normal. Sodium 139, potassium 4, chlorides 101, CO2 31, BUN 47, and creatinine 1.37. Glucose is 113. Calcium is 10.4. Chest x-ray is consistent with fluid overload. It was done on October 28. On today's evaluation of 11/03/2023, the patient remains on oxygen 4 L/min nasal cannula. The patient is known to have congestion heart failure, COPD, paroxysmal atrial fibrillation, hypertension hyperlipidemia. The patient is sandie ng seen for shortness of breath. Noted the patient was hospitalized earlier to [facility] in [facility] for shortness of breath and pneumonia. He did encounter A-fib RVR, placed on a Cardizem drip and currently is rate is under better control. Hemodynamically stable and the patient is afebrile. The patient remains on Toprol 50 mg p.o. twice a day. The patient is also on Symbicort and DuoNeb nebulized treatments [id number]. Rest of the home medications have been resumed. Remains on insulin 10 units at bedtime and 2 units with meals and a sliding scale coverage. In terms of labs, the white circles of 12.9 with a heme of 13.3, BUN is 46 with a creatinine of 1.28 and a sodium levels of 139. His creatinine is gradually improved. Noted his cardiac catheterization from May 2021 showed mild CAD with 20 to 30% proximal LAD stenosis. The patient has a preserved LV function. Most recent chest x-ray from 10/29/2023 showed evidence of fluid overload with small to moderate-sized right-sided effusion and left-sided pleural effusion. Noted the patient has undergone a previous thoracentesis back in 2022 and the fluid itself was a transudate. For now, he is on IV Lasix 40 mg every 12 hours. He is in a negative fluid balance for now. On today's evaluation of 11/01/2023, I am see the patient for a follow-up. The patient is calm and comfortable on room air oxygen. Denies having any significant shortness of breath. Denies having any chest pain. Continues to be in a negative fluid balance as the patient is being diuresed with Lasix and the patient is currently on 40 mg IV Lasix every 12 hours and the patient is also on Aldactone 25 mg p.o. daily. Remains on metoprolol 50 mg p.o. twice a day. Remains on DuoNeb nebulized treatments [id number] and Symbicort as maintenance. No altered mentation. No chest pain. No other complaints otherwise. Sodium is at 134 with a potassium level of 4.4, BUN is 42 with a creatinine of 1.01 and the patient has no specific complaints. Noted, ultrasound of the chest was done this morning and ultrasound marking showed a large right- sided pleural effusion measuring 19 cm in size in addition to a moderate-sized left-sided pleural effusion measuring 9.7 cm in size. I performed a bedside thoracentesis on this patient and a total of 2 L of fluid was aspirated without any complications. Follow-up chest x-ray following the procedure showed interval decrease in the right-sided pleural effusion with a small residual right-sided pleural effusion without any pneumothorax. There was still a small to moderate-sized left-sided pleural effusion present. The patient is still off anticoagulation in anticipation for another procedure for left-sided thoracentesis tomorrow.A swallow evaluation was also done today for dysphagia Objective - Vital Signs Vital signs: Vital Signs Temp 97.2 F L 11/01/23 03:45 Pulse 92 11/01/23 08:00 Resp 18 11/01/23 08:00 BP 147/80 11/01/23 08:00 Pulse Ox 94 L 11/01/23 08:00 FiO2 Intake & Output 10/31/23 11/01/23 11/01/23 18:59 06:59 18:59 Intake Total 240 Output Total 401 450 1 Balance -401 -450 239 Weight 58.5 kg Intake: Oral 240 Output: Urine 400 450 Stool 1 1 Other: Voiding Method Diaper Diaper Diaper Incontinent Incontinent Incontinent External Catheter External Catheter External Catheter # Voids 2 # Bowel Movements 1 - Exam No acute distress, lethargic, currently on 4 L nasal cannula. Saturations are 93 %. HEENT examination is grossly unremarkable. Neck supple. Full range of motion. No adenopathy thyromegaly or neck vein distention. Cardiovascular examination reveals regular rhythm rate. S1-S2 normal. No S3 or S4. No discernible murmur noted. Heart sounds are distant. Lungs reveal scattered rhonchi and crackles. Breath sounds equal. No wheezes. Breath sounds diminished throughout. There is improved aeration in the right lung base following thoracentesis. Abdomen soft bowel sounds are heard. No masses or tenderness. Extremities are intact. No cyanosis or clubbing. There is 1+ pitting edema. Mild erythema of the lower extremities. Skin is without rash or lesion. Neurologic examination is brief but nonfocal. - Labs CBC & Chem 7: 10/31/23 07:34 11/01/23 14:24 Labs: Abnormal Lab Results - Last 24 Hours (Table) 10/31/23 10/31/23 11/01/23 Range/Units 16:29 19:52 06:21 POC Glucose (mg/dL) 132 H 203 H 31 L* (70-110) mg/dL 11/01/23 11/01/23 11/01/23 Range/Units 06:23 06:41 07:00 POC Glucose (mg/dL) 36 L* 68 L 127 H (70-110) mg/dL 11/01/23 Range/Units 11:06 POC Glucose (mg/dL) 265 H (70-110) mg/dL Assessment and Plan Plan: Acute hypoxemic respiratory failure, likely related to CHF, doubt pneumonia. The patient has bilateral pleural effusion right more than left and the patient is currently on oxygen 4 L/min nasal cannula. Previous history of bilateral pleural effusion requiring thoracentesis evacuation of 1.8 L of pleural fluid from the right back in 2022 and the fluid was a transudate. I performed another thoracentesis of the right lung with rem oval of 2 L of pleural fluid from the right hemithorax without any major complications. Chest x-ray shows a persistent moderate-sized left-sided pleural effusion. Paroxysmal atrial fibrillation with controlled rate for now. Acute decompensated CHF, preserved LV function Bilateral lower extremity edema. COPD, currently inactive. Acute kidney injury, creatinine is improved Elevated troponins, rule out NSTEMI. History of hypertension. History of hyperlipidemia. History of atrial fibrillation, status post cardiac ablation. Bilateral pleural effusions with history of previous bilateral thoracentesis. History of septic arthritis. Cellulitis of the lower extremity, clinically suspected and the patient is currently on IV cefazolin Plan: The patient is currently on 4 L of oxygen by nasal cannula, wean FiO2 as tolerated Patient is status post right-sided thoracentesis with removal of 2 L of pleural fluid Continue Lasix 40 mg IV every 12 hours Will consider a left-sided thoracentesis based on the patient's overall progress She agrees to DNR, as he would not want to be on life support. I believe that to be appropriate, given his age of 83, and his worsening dementia. Swallow evaluation was completed and the results are still pending we will continue to follow.
--- NOTE | 2023-11-01 20:34 | P.PCN ---
Date of Procedure: 11/01/23 Preoperative Diagnosis: Pleural effusion, right Postoperative Diagnosis: Pleural effusion, right Procedure(s) Performed: Thoracentesis, right Anesthesia: local Surgeon: Pete Walker Estimated Blood Loss (ml): 0 Pathology: other Condition: stable Disposition: floor Operative Findings: A time out was performed and the chest x-ray was reviewed, the appropriate side was confirmed and marked. My hands were washed immediately prior to the procedure. I wore a surgical cap, mask with protective eyewear, sterile gown and sterile gloves throughout the procedure. The patient was prepped and draped in a sterile manner using chlorhexidine scrub after the appropriate level was percu ssed and confirmed by ultrasound. 1% lidocaine was used to anesthesize the skin, subcutaneous tissue, superior aspect of the rib periosteum and parietal pleura. A finder needle was then introduced over the superior aspect of the rib to locate the pleural fluid; fluid was aspirated at a depth of approximately 2 cm. A 10-blade scalpel was used to eyad the skin at the insertion site. The [id number] needle was then introduced through the skin incision into the pleural space using negative aspiration pressure and the red colometric indicator to confirm appropriate positioning of the needle. The thoracentesis catheter was then threaded without difficulty. 2000ml of turbid colored fluid was removed without difficulty. The catheter was then removed. No immediate complications were noted during the procedure. A post-procedure chest x-ray is pending at the time of this note. The fluid was not sent for studies. Estimated blood loss is 0cc
[2023-11-02 02:05] LABS: Glucose,Whole Blood 162 mg/dL (70-110)
[2023-11-02 06:04] LABS: Glucose,Whole Blood 196 mg/dL (70-110)
--- NOTE | 2023-11-02 06:23 | P.PN ---
Subjective Progress Note Date: 11/01/23 HISTORY OF PRESENT ILLNESS: 83-year-old with active medical history of congestive heart failure with worsening exacerbation both systolic and diastolic, history of COPD, history of hypertension, hyperlipidemia, atrial fibrillation postcardiac ablation, chronic pleural effusion with previous history of thoracentesis, chronic dementia, history of anasarca and worsening edema required diuretics on and off, chronic kidney disease with worsening symptoms with diuretics, he has been in the hospital since October 24 shortly after he was admitted to [facility] for almost a week for similar complaint which patient has been in this time for worsening shortness of breath edema with anasarca. Continue to see pulmonary critical care, continue to see cardiology, infectious disease nephrology. Patient still on 4 L of O2 try to keep his pulse ox above 90 percentile, had an episode of A-fib with RVR was initiated on Cardizem drip 5 mg an hour apparently change her CODE STATUS yesterday to DO NOT RESUSCITATE with his lab value from last 24 hours hemoglobin still stable but white blood cell 24,600 continue to have chronic kidney disease with GFR of 30. Chest x-ray consistent with fluid overload. Continue to treat patient with aggressive management for his anasarca and CHF still been treated for COPD as well as pleural effusion looks like multi subspecialist follow-up for the last 2 years with recurrent episode require seen patient in almost on weekly basis and multi hospitalization. Biggest at this point at least finally the made him DO NOT RESUSCITATE will continue to work toward palliative care by the time you leave the hospital this time. Patient is debilitated without she has been agreeable to take him home or he required to go to rehab is to be determined. 11/01/2023: Review of his testing from last 24 hours kidney function still holding well with GFR at 51, white blood cell 12.9 with normal hemoglobin, his blood sugar dropped down this morning to be quite bit hypoglycemic at 36 through the night was close to 200. Continue to be in A-fib by EKG from last 24 hours currently show A-fib with pulse rate running at 110 beats per minutes. Still seeing cardiology and still on Cardizem. Still require 4 L O2 to keep his pulse ox above 90-92 percentile, with increase of Lasix to 40 mg twice a day with diuresing that more. Have long discussion with the today about hospice and palliative care and excepting the fact that she is making arrangement to have patient go either home on hospice or go to the hospice house which the patient will be talking again with the director of social work about it today for final decision and plan probably by the end of the day and by early tomorrow morning. REVIEW OF SYSTEMS: CONSTITUTIONAL: Elderly mild respiratory distress EYES: No icterus sclerae, no conjunctivitis. EARS, NOSE, MOUTH, THROAT, and FACE: No sore throat, lymphadenopathy, carotid br uits or deformity. RESPIRATORY: Positive shortness of breath cough and wheezes. CARDIOVASCULAR: Positive PND orthopnea palpitation. GASTROINTESTINAL: No Abd pain, Nausea or vomiting, no Diarrhea or constipation, No GI Bleed, no distention or masses. GENITOURINARY: Negative for Hematuria or UTI, no kidney stones. INTEGUMENT/BREAST: Negative for any muscular injury with mild osteoarthritis.. HEMATOLOGIC/LYMPHATIC: Negative for bleed or purpura. MUSCULOSKELTAL: Negative for Myalgia or arthralgia. NEURLOGICAL: No LOC, Sz or syncope, blurred vision dizziness or abnormality.. BEHAVIORAL/PSYCH: Negative. ENDOCRINE: Negative. PHYSICAL EXAMINATION: General Appearance: Alert, cooperative, mild respiratory distress. Neck HEENT: Supple, no lymphadenopathy, no thyroid enlargement, no carotid bruits. Lungs: Decreased breath sound bilaterally especially the right side past 5 rhonchi with crackles present at expected wheezes. Chest Wall: Chest wall normal expansion with deep inspiration no tenderness and no deformity was found on exam, no costochondral pain or discomfort. Heart: Irregular rhythm and rate , S1, S2 normal, no murmur, rub or gallop. Back: Symmetric, no curvature, ROM normal, no CVA tenderness. Abdomen: Soft, non-tender, bowel sounds active all four quadrants, no masses, no organomegaly. Extremities: Extremities normal, atraumatic, no cyanosis or positive edema. Skin: Skin color, texture, tugor normal, no rashes or lesions. Neurologic: Alert oriented x3 cranial nerves II through XII intact, no motor deficit, no abnormal balance or gait. ASSESSMENT AND PLAN: _Acute hypoxic respiratory failure secondary to CHF and mild COPD with A-fib: Continue current treatment management with O2 aggressive treatment for CHF and A-fib. Still on 4 L O2. _Combination of systolic and diastolic congestive heart failure: Still seeing cardiology and remain on combination of furosemide 40 mg IV twice a day along with spironolactone 25 mg daily if his blood pressure will allow probably will benefit from Entresto as well still on metoprolol apparently had reaction to GLP-1 product. Will continue to titrate CHF medication. _A-fib with RVR: With chronic history of atrial fibrillation remain on Eliquis currently still on Cardizem drip switch to Cardizem orally and still on metoprolol pulse rate is better since. Pulse rate still above 110 to increase Cardizem today. Pulse rate slightly better with increase of Cardizem. _Anasarca and bilateral edema: Remain on higher albumin intake with furosemide 40 mg IV twice a day and spironolactone. _COPD remain on O2 and updraft treatment he is not in any exacerbation. _Acute kidney injury: Creatinine stabilized at 1.37 with GFR still running in the 30s. _Bilateral pleural effusion with previous history of bilateral thoracentesis stable at this point. _Right leg cellulitis: Remain on cefazolin. Still seen infectious disease. _CODE STATUS: DO NOT RESUSCITATE. _GI prophylaxis still on PPI. _Discussion: Long discussion with patient and his final decision is that awaiting for Dr. Walker to see if he is going to do any thoracentesis and then they are planning to do hospice. Objective - Vital Signs Vital signs: Vital Signs Temp 97.2 F L 11/01/23 03:45 Pulse 80 11/01/23 03:45 Resp 20 11/01/23 03:45 BP 118/63 11/01/23 03:45 Pulse Ox 97 11/01/23 03:45 FiO2 Intake & Output 10/31/23 10/31/23 11/01/23 06:59 18:59 06:59 Output Total 401 450 Balance -401 -450 Weight 65.5 kg 58.5 kg Output: Urine 400 450 Stool 1 Other: Voiding Method External Catheter Diaper Diaper Incontinent Incontinent External Catheter External Catheter # Voids 2 2 # Bowel Movements 1 1 - Labs CBC & Chem 7: 10/31/23 07:34 11/01/23 14:24 Labs: Abnormal Lab Results - Last 24 Hours (Table) 10/31/23 10/31/23 10/31/23 Range/Units 07:34 07:34 12:00 WBC 12.9 H (3.8-10.6) k/uL RBC 4.29 L (4.30-5.90) m/uL Neutrophils # 11.6 H (1.3-7.7) k/uL Lymphocytes # 0.5 L (1.0-4.8) k/uL Carbon Dioxide 37 H (22-30) mmol/L BUN 46 H (9-20) mg/dL Creatinine 1.28 H (0.66-1.25) mg/dL Glucose 119 H (74-99) mg/dL POC Glucose (mg/dL) 156 H (70-110) mg/dL Calcium 10.5 H (8.4-10.2) mg/dL Total Protein 5.1 L (6.3-8.2) g/dL Albumin 2.7 L (3.5-5.0) g/dL 10/31/23 10/31/23 11/01/23 Range/Units 16:29 19:52 06:21 WBC (3.8-10.6) k/uL RBC (4.30-5.90) m/uL Neutrophils # (1.3-7.7) k/uL Lymphocytes # (1.0-4.8) k/uL Carbon Dioxide (22-30) mmol/L BUN (9-20) mg/dL Creatinine (0.66-1.25) mg/dL Glucose (74-99) mg/dL POC Glucose (mg/dL) 132 H 203 H 31 L* (70-110) mg/dL Calcium (8.4-10.2) mg/dL Total Protein (6.3-8.2) g/dL Albumin (3.5-5.0) g/dL 11/01/23 Range/Units 06:23 WBC (3.8-10.6) k/uL RBC (4.30-5.90) m/uL Neutrophils # (1.3-7.7) k/uL Lymphocytes # (1.0-4.8) k/uL Carbon Dioxide (22-30) mmol/L BUN (9-20) mg/dL Creatinine (0.66-1.25) mg/dL Glucose (74-99) mg/dL POC Glucose (mg/dL) 36 L* (70-110) mg/dL Calcium (8.4-10.2) mg/dL Total Protein (6.3-8.2) g/dL Albumin (3.5-5.0) g/dL
[2023-11-02 07:58] LABS: African American GFR (CKD) 81 (>60 ml/min/1.73 sqM); Anion Gap -3 mmol/L; Blood Urea Nitrogen 39 mg/dL (9-20); Calcium 9.7 mg/dL (8.4-10.2); Carbon Dioxide 37 mmol/L (22-30); Chloride 102 mmol/L (98-107); Glucose 153 mg/dL (74-99); Non-African American GFR(CKD) 70 (>60 ml/min/1.73 sqM); Potassium 4.5 mmol/L (3.5-5.1); Sodium 136 mmol/L (137-145)
--- NOTE | 2023-11-02 08:31 | P.PN ---
Subjective Progress Note Date: 11/01/23 Principal diagnosis: Reason for follow-up is right lower extremity cellulitis and question of pneumonia Patient is a 83-year-old male with a past medical history significant for diabetes mellitus hypertension hyperlipidemia COPD atrial fibrillation pneumonia prostate disorder patient has been brought into the hospital for evaluation of increasing shortness of breath and right leg swelling with concern for right lower extremity cellulitis and possible pneumonia. On today's evaluation that is 11/01/2023, patient has been afebrile, patient is breathing comfortably and is currently on 4 L current oxygen, patient denies having any significant cough no chest pain shortness of breath, patient denies nausea vomiting or diarrhea and no abdominal pain or pain to the right lower extremity. No CBC was done today creatinine is 1.01 Objective - Vital Signs Vital signs: Vital Signs Temp 97.2 F L 11/01/23 03:45 Pulse 92 11/01/23 08:00 Resp 18 11/01/23 08:00 BP 147/80 11/01/23 08:00 Pulse Ox 94 L 11/01/23 08:00 FiO2 Intake & Output 10/31/23 11/01/23 11/01/23 18:59 06:59 18:59 Intake Total 240 Output Total 401 450 1 Balance -401 -450 239 Weight 58.5 kg Intake: Oral 240 Output: Urine 400 450 Stool 1 1 Other: Voiding Method Diaper Diaper Diaper Incontinent Incontinent Incontinent External Catheter External Catheter External Catheter # Voids 2 1 # Bowel Movements 1 - Exam GENERAL DESCRIPTION: An elderly male lying in bed in no distress RESPIRATORY SYSTEM: Unlabored breathing , decreased breath sounds at bases HEART: S1 S2 regular rate and rhythm , ABDOMEN: Soft , no tenderness EXTREMITIES: Right lower extremity slight erythema which is warm to touch - Labs CBC & Chem 7: 10/31/23 07:34 11/02/23 07:01 Labs: Abnormal Lab Results - Last 24 Hours (Table) 10/31/23 10/31/23 11/01/23 Range/Units 16:29 19:52 06:21 POC Glucose (mg/dL) 132 H 203 H 31 L* (70-110) mg/dL 11/01/23 11/01/23 11/01/23 Range/Units 06:23 06:41 07:00 POC Glucose (mg/dL) 36 L* 68 L 127 H (70-110) mg/dL 11/01/23 Range/Units 11:06 POC Glucose (mg/dL) 265 H (70-110) mg/dL Assessment and Plan (1) Abnormal chest x-ray Current Visit: Yes Status: Acute Code(s): R93.89 - ABNORMAL FINDINGS ON DX IMAGING OF OTH BODY STRUCTURES SNOMED Code(s): 671733254 (2) Leukocytosis Current Visit: No Status: Acute Code(s): D72.829 - ELEVATED WHITE BLOOD CELL COUNT, UNSPECIFIED SNOMED Code(s): 905299748 (3) Cellulitis of leg, right Current Visit: Yes Status: Acute Code(s): L03.115 - CELLULITIS OF RIGHT LOWER LIMB SNOMED Code(s): 09215486885518653 Plan: 1patient presented to hospital with increasing shortness of breath lower extremity swelling questionable of fluid overload CHF as the patient did have a bilateral effusion swelling to the lower extremity which is red and warm to touch 2-patient leukocytosis possibly steroid related with Solu-Medrol white count d id come down to 12,000 as of yesterday no CBC was done today 3 patient did have a component of right leg cellulitis, for which the patient is covered with cefazolin with the plan to finish therapy with oral Keflex currently workup for effusion and possible thoracocentesis pulmonary following the patient Dictation was produced using [employer] dictation software. please excuse any grammatical, word or spelling errors. Time with Patient: Less than 30
[2023-11-02] MEDS ORDERED: FLUDROCORTISONE 0.1 MG TAB PO SCH (11:45)
[2023-11-02 11:48] LABS: Glucose,Whole Blood 171 mg/dL (70-110)
--- NOTE | 2023-11-02 11:52 | P.PN ---
Subjective HISTORY OF PRESENT ILLNESS: Patient is a pleasant 83-year-old male with significant past medical history of COPD, paroxysmal atrial fibrillation, hypertension, hyperlipidemia, congestive heart failure, and lymphedema who was admitted with complaints of right ankle cellulitis, shortness of breath, cough. He does follow with Dr. Welsh in the office. Over the past 3 weeks he has had multiple admissions here at [facility] however, system was down and reports are unavailable currently. He was also admitted at [facility] with shortness of breath and pneumonia. Cardiology was consulted for episode of A-fib with RVR overnight. He reports that last night he was feeling more short of breath and was found to be in A-fib with RVR, a team was called. He was started on a Cardizem drip and increased on his oxygen. He is back in the normal sinus rhythm now. Prior to a month ago he had been doing well and had been at home getting around with a cane. He denies any chest pain or pressure. Lower extremity swelling has improved. He did have a prior heart catheterization 05/2021 which showed mild CAD with 20-30% proximal LAD stenosis. 10/31/2023 Patient examined this morning at the bedside. Patient currently denies chest pain or pressure. Patient currently denies shortness of breath. Telemetry reveals atrial fibrillation with heart rate around 100. Patient has been having runs of nonsustained ventricular tachycardia. Echocardiogram completed in the office in July 2023 revealed ejection fraction 55%, mild aortic regurgitation, mild tricuspid regurgitation, severely increased pulmonary artery systolic pressure with RVSP 70 mmHg. Patient did have a recent echocardiogram performed here. Spoke with sterilization tech who stated LV function was normal, no wall motion abnormalities, and pleural effusion was noted. 11/01/2023 Patient examined this morning the bedside. Patient currently denies chest pain or pressure. He reports shortness of breath. He remains on IV Lasix. 11/02/2023 Patient examined this morning the bedside. Patient continues to report shortness of breath. He underwent right-sided thoracentesis yesterday with 2 L of fluid. Patient's spouse states that patient is to undergo left-sided thoracentesis today. His Eliquis remains on hold. Telemetry reveals sinus mechanism with PACs with bursts of atrial fibrillation PHYSICAL EXAM: VITAL SIGNS: Reviewed. GENERAL: Well-developed in no acute distress. NECK: Supple. No JVD or thyromegaly LUNGS: Respirations even and unlabored. Lungs essentially clear to auscultation bilaterally. HEART: Regular rate and rhythm. S1 and S2 heard. EXTREMITIES: Normal range of motion. No clubbing or cyanosis. Peripheral pulses intact. No lower extremity edema ASSESSMENT: Paroxysmal atrial fibrillation Acute on chronic congestive heart failure with preserved EF Bilateral pleural effusions, status post right sided thoracentesis with removal of 2 L Nonsustained ventricular tachycardia Recent hospitalization at [place] for pneumonia Hypertension Hyperlipidemia COPD History of lymphedema PLAN: Continue current dose of metoprolol Avoid amiodarone Continue IV Lasix 40 mg every 12 hours Daily weights, accurate intake and output, and monitoring of kidney function Eliquis remains on hold for thoracentesis Further recommendations pending patient course Nurse practitioner note has been reviewed by physician. Signing provider agrees with the documented findings, assessment, and plan of care documented by HOSPITAL[employer] HOUSEKEEPER as a scribe. Objective - Vital Signs Vital signs: Vital Signs Temp 97.8 F 11/02/23 08:00 Pulse 75 11/02/23 11:46 Resp 19 11/02/23 11:46 BP 106/52 11/02/23 11:46 Pulse Ox 88 L 11/02/23 11:46 FiO2 Intake & Output 11/01/23 11/02/23 11/02/23 18:59 06:59 18:59 Intake Total 480 118 Output Total 402 402 1 Balance 78 -402 117 Weight 58.5 kg 70 kg Intake: Oral 480 118 Output: Urine 400 400 Stool 2 2 1 Other: Voiding Method Diaper Diaper Diaper Incontinent Incontinent Incontinent External Catheter External Catheter External Catheter # Voids 1 - Labs CBC & Chem 7: 10/31/23 07:34 11/02/23 07:01 Labs: Abnormal Lab Results - Last 24 Hours (Table) 11/01/23 11/01/23 11/01/23 Range/Units 14:24 16:11 20:05 Sodium 134 L (137-145) mmol/L Carbon Dioxide 32 H (22-30) mmol/L BUN 42 H (9-20) mg/dL Glucose 219 H (74-99) mg/dL POC Glucose (mg/dL) 161 H 195 H (70-110) mg/dL 11/02/23 11/02/23 11/02/23 Range/Units 02:01 06:02 07:01 Sodium 136 L (137-145) mmol/L Carbon Dioxide 37 H (22-30) mmol/L BUN 39 H (9-20) mg/dL Glucose 153 H (74-99) mg/dL POC Glucose (mg/dL) 162 H 196 H (70-110) mg/dL 11/02/23 Range/Units 11:46 Sodium (137-145) mmol/L Carbon Dioxide (22-30) mmol/L BUN (9-20) mg/dL Glucose (74-99) mg/dL POC Glucose (mg/dL) 171 H (70-110) mg/dL
--- NOTE | 2023-11-02 12:09 | XR ---
EXAMINATION TYPE: XR chest 1V portable DATE OF EXAM: 11/02/2023 COMPARISON: 10/31/2022 HISTORY: Post left thoracentesis TECHNIQUE: Single frontal view of the chest is obtained. FINDINGS: There is interval reduction in the amount of fluid on the left. Small right effusion is st able. No sizable pneumothorax. Underlying COPD. Chronic rib deformities. Diffuse osteopenia and arthr opathy of the shoulders. Atherosclerotic change of the aorta. Mild venous congestion in the different ial diagnosis. IMPRESSION: 1. Interval reduction in amount of pleural fluid on the left with no sizable pneumothorax.
[2023-11-02] MEDS: FLUDROCORTISONE 0.1 MG TAB PO SCH (12:33)
--- NOTE | 2023-11-02 15:05 | P.PN ---
Subjective Progress Note Date: 11/02/23 Patient is an 83-year-old white male with past medical history significant for COPD, hypertension, hyperlipidemia, atrial fibrillation status post cardiac ablation, heart failure, pleural effusion with previous thoracentesis. Also, has dementia and is technically a poor historian. Presented to the emergency room yesterday afternoon complaining primarily of shortness of breath and lower extremity swelling. Reportedly has been treated outpatient with multiple rounds of antibiotics for pneumonia. Patient is currently being evaluated the emergency department. Not a very good historian. No acute respiratory distress. Currently on 2 L/min nasal cannula, SpO2 99%. He does have a congested cough. Currently afebrile. He does have significant bilateral lower extremity swelling and his right foot/ankle is erythemic and warm. Venous Doppler of the right lower extremity negative for DVT. Chest x-ray showing pulmonary vascular congestion, small to moderate bilateral pleural effusions with associated atelectasis versus infiltrate. NT proBNP elevated at 2850. CBC: WBC count 12.2, hemoglobin 14.2, hematocrit 43.6, platelets 276. CMP: Sodium 136, potassium 3.7, chloride 102, serum bicarb 28, BUN 48, creatinine 1.49, glucose 220. Lactic peaked at 3 and down to 2.8. Magnesium 1.4. LFTs unremarkable. Troponin 0.038. EKG showing normal sinus rhythm without any obvious acute ischemic changes. Hemodynamically, the patient is stable at this time. Progress note dated October 27, 2023. 83-year-old male well-known to me. He has a history of COPD, hypertension, hyperlipidemia, atrial fibrillation, heart failure, and previous pleural effusion. The patient is also demented. The patient was brought into the emergency department, with complaints of shortness of breath, and lower ext remity edema. The patient was thought to have either heart failure, and or pneumonia. The patient's procalcitonin level was 0.12. N-terminal proBNP is 2850. He is on 2 L of oxygen. Saturations are 95%. Zosyn is discontinued. He is getting saline at 10 cc an hour. A glucose of 262. Progress note dated October 28, 2023. 83-year-old male seen in room 358. He is doing better today. He is on 3 L. His is in the room. He is not receiving any IV fluids. Dopplers of the upper extremities were negative bilaterally. The patient was seen by the infectious disease doctor, and even though the procalcitonin level was normal, he started the patient on Ancef for presumed cellulitis of the lower extremity. I believe that is unnecessary. The patient is better from the pulmonary standpoint. Current labs include a white count 18.7, hemoglobin 13.6, hematocrit 41.8, platelet count 296,000. Sodium 137, potassium 3.6, chlorides 100, CO2 31, BUN 39, creatinine 1.35. Calcium is 10.1. Procalcitonin level was 0.12. He tested negative for coronavirus, and Legionella. Progress note dated October 29, 2023. 83-year-old male seen today in room 358. The patient continues on oxygen, at 3 L. He is getting saline at 10 cc an hour. He looks reasonably stable. He does have a congested wet cough. His , who is usually in the room, was not there today. No new labs today other than a glucose of 116. Progress note dated October 30, 2023. 83-year-old male seen today in room 358. The patient's is in the room, and she is very tearful. Apparently last night, the patient had an episode of atrial fibrillation with RVR. The patient was seen by the housestaff. Currently he is on 4 L of oxygen. He is also getting Cardizem at 5 mg an hour. The EKG showed evidence of atrial fibrillation with RVR. Today we had a long talk with the patient's , about CODE STATUS. The patient is now a no code. He would not want to be on life support. Current labs include a white count 24.6, hemoglobin 15.3, hematocrit 48.7, and a platelet count is normal. Sodium 139, potassium 4, chlorides 101, CO2 31, BUN 47, and creatinine 1.37. Glucose is 113. Calcium is 10.4. Chest x-ray is consistent with fluid overload. It was done on October 28. On today's evaluation of 11/03/2023, the patient remains on oxygen 4 L/min nasal cannula. The patient is known to have congestion heart failure, COPD, paroxysmal atrial fibrillation, hypertension hyperlipidemia. The patient is sandie ng seen for shortness of breath. Noted the patient was hospitalized earlier to [facility] in [facility] for shortness of breath and pneumonia. He did encounter A-fib RVR, placed on a Cardizem drip and currently is rate is under better control. Hemodynamically stable and the patient is afebrile. The patient remains on Toprol 50 mg p.o. twice a day. The patient is also on Symbicort and DuoNeb nebulized treatments [id number]. Rest of the home medications have been resumed. Remains on insulin 10 units at bedtime and 2 units with meals and a sliding scale coverage. In terms of labs, the white circles of 12.9 with a heme of 13.3, BUN is 46 with a creatinine of 1.28 and a sodium levels of 139. His creatinine is gradually improved. Noted his cardiac catheterization from May 2021 showed mild CAD with 20 to 30% proximal LAD stenosis. The patient has a preserved LV function. Most recent chest x-ray from 10/29/2023 showed evidence of fluid overload with small to moderate-sized right-sided effusion and left-sided pleural effusion. Noted the patient has undergone a previous thoracentesis back in 2022 and the fluid itself was a transudate. For now, he is on IV Lasix 40 mg every 12 hours. He is in a negative fluid balance for now. On today's evaluation of 11/01/2023, I am see the patient for a follow-up. The patient is calm and comfortable on room air oxygen. Denies having any significant shortness of breath. Denies having any chest pain. Continues to be in a negative fluid balance as the patient is being diuresed with Lasix and the patient is currently on 40 mg IV Lasix every 12 hours and the patient is also on Aldactone 25 mg p.o. daily. Remains on metoprolol 50 mg p.o. twice a day. Remains on DuoNeb nebulized treatments [id number] and Symbicort as maintenance. No altered mentation. No chest pain. No other complaints otherwise. Sodium is at 134 with a potassium level of 4.4, BUN is 42 with a creatinine of 1.01 and the patient has no specific complaints. Noted, ultrasound of the chest was done this morning and ultrasound marking showed a large right- sided pleural effusion measuring 19 cm in size in addition to a moderate-sized left-sided pleural effusion measuring 9.7 cm in size. I performed a bedside thoracentesis on this patient and a total of 2 L of fluid was aspirated without any complications. Follow-up chest x-ray following the procedure showed interval decrease in the right-sided pleural effusion with a small residual right-sided pleural effusion without any pneumothorax. There was still a small to moderate-sized left-sided pleural effusion present. The patient is still off anticoagulation in anticipation for another procedure for left-sided thoracentesis tomorrow.A swallow evaluation was also done today for dysphagia On today's evaluation of 11/02/2023, the patient is being seen for a follow-up. The patient underwent a thoracentesis yesterday involving the right lung and a total of 2 L of pleural fluid was removed. Patient has no significant respiratory distress. Oxygenation remained stable. I did like discussion with the who opted to drain the left chest. Based on that, a left-sided thoracentesis was also done today and a total of 1.7 L of pleural fluid was also aspirated. No complications. The postprocedure chest x-ray showed no evidence of any pneumothorax and there is interval reduction amount of pleural effusion on the left without any sizable pneumothorax. BUN 39 with a creatinine of 0.9 and sodium levels at 136 and a potassium level is at 4.5 and a serum bicarb is c urrently at 37. Afebrile. Hemodynamically stable. Objective - Vital Signs Vital signs: Vital Signs Temp 97.8 F 11/02/23 08:00 Pulse 73 11/02/23 08:00 Resp 20 11/02/23 08:00 BP 101/54 11/02/23 08:00 Pulse Ox 89 L 11/02/23 08:00 FiO2 Intake & Output 11/01/23 11/02/23 11/02/23 18:59 06:59 18:59 Intake Total 480 118 Output Total 402 402 1 Balance 78 -402 117 Weight 58.5 kg 70 kg Intake: Oral 480 118 Output: Urine 400 400 Stool 2 2 1 Other: Voiding Method Diaper Diaper Diaper Incontinent Incontinent Incontinent External Catheter External Catheter External Catheter # Voids 1 - Exam No acute distress, lethargic, currently on 4 L nasal cannula. Saturations are 93 %. HEENT examination is grossly unremarkable. Neck supple. Full range of motion. No adenopathy thyromegaly or neck vein distention. Cardiovascular examination reveals regular rhythm rate. S1-S2 normal. No S3 or S4. No discernible murmur noted. Heart sounds are distant. Lungs reveal scattered rhonchi and crackles. Breath sounds equal. No wheezes. Breath sounds diminished throughout. There is improved aeration in both lungs following bilateral thoracentesis. Abdomen soft bowel sounds are heard. No masses or tenderness. Extremities are intact. No cyanosis or clubbing. There is 1+ pitting edema. Mild erythema of the lower extremities. Skin is without rash or lesion. Neurologic examination is brief but nonfocal. - Labs CBC & Chem 7: 10/31/23 07:34 11/02/23 07:01 Labs: Abnormal Lab Results - Last 24 Hours (Table) 11/01/23 11/01/23 11/01/23 Range/Units 11:06 14:24 16:11 Sodium 134 L (137-145) mmol/L Carbon Dioxide 32 H (22-30) mmol/L BUN 42 H (9-20) mg/dL Glucose 219 H (74-99) mg/dL POC Glucose (mg/dL) 265 H 161 H (70-110) mg/dL 11/01/23 11/02/23 11/02/23 Range/Units 20:05 02:01 06:02 Sodium (137-145) mmol/L Carbon Dioxide (22-30) mmol/L BUN (9-20) mg/dL Glucose (74-99) mg/dL POC Glucose (mg/dL) 195 H 162 H 196 H (70-110) mg/dL 11/02/23 Range/Units 07:01 Sodium 136 L (137-145) mmol/L Carbon Dioxide 37 H (22-30) mmol/L BUN 39 H (9-20) mg/dL Glucose 153 H (74-99) mg/dL POC Glucose (mg/dL) (70-110) mg/dL Assessment and Plan Plan: Acute hypoxemic respiratory failure, likely related to CHF, doubt pneumonia. The patient has bilateral pleural effusion right more than left and the patient is currently on oxygen 4 L/min nasal cannula. Left-sided thoracentesis was done today today on 11/02/2023 with removal of 1.7 L of pleural fluid. Previous history of bilateral pleural effusion requiring thoracentesis evacuation of 1.8 L of pleural fluid from the right back in 2022 and the fluid was a transudate. I performed another thoracentesis of the right lung on 11/01/2023 with removal of 2 L of pleural fluid from the right hemithorax without any major complications. Chest x-ray shows a persistent moderate-sized left- sided pleural effusion. Thoracentesis was done on 11/02/2023 on the left evacuating around 1700 cc of pleural fluid. No complications. Paroxysmal atrial fibrillation with controlled rate for now. Acute decompensated CHF, preserved LV function Bilateral lower extremity edema. COPD, currently inactive. Acute kidney injury, creatinine is improved Elevated troponins, rule out NSTEMI. History of hypertension. History of hyperlipidemia. History of atrial fibrillation, status post cardiac ablation. Bilateral pleural effusions with history of previous bilateral thoracentesis. History of septic arthritis. Cellulitis of the lower extremity, clinically suspected and the patient is currently on IV cefazolin Plan: The patient is currently on 4 L of oxygen by nasal cannula, wean FiO2 as tolerated Patient is status post bilateral thoracentesis Continue Lasix 40 mg IV every 12 hours The pleural fluid will be sent for cultures She agrees to DNR, as he would not want to be on life support. I believe that to be appropriate, given his age of 83, and his worsening dementia. Swallow evaluation was completed and the results are still pending Anticoagulation with Eliquis can be restarted we will continue to follow.
--- NOTE | 2023-11-02 15:06 | P.PCN ---
Date of Procedure: 11/02/23 Operative Findings: Preoperative Diagnosis: Pleural effusion, left Postoperative Diagnosis: Pleural effusion, left Procedure(s) Performed: Thoracentesis, left Anesthesia: local Surgeon: Pete Walker Estimated Blood Loss (ml): 0 Pathology: other Condition: stable Disposition: floor Operative Findings: A time out was performed and the chest x-ray was reviewed, the appropriate side was confirmed and marked. My hands were washed immediately prior to the procedure. I wore a surgical cap, mask with protective eyewear, sterile gown and sterile gloves throughout the procedure. The patient was prepped and draped in a sterile manner using chlorhexidine scrub after the appropriate level was percussed and confirmed by ultrasound. 1% lidocaine was used to anesthesize the skin, subcutaneous tissue, superior aspect of the rib periosteum and parietal pleura. A finder needle was then introduced over the superior aspect of the rib to locate the pleural fluid; fluid was aspirated at a depth of approximately 2 cm. A 10-blade scalpel was used to eyad the skin at the insertion site. The [id number]-[id number] needle was then introduced through the skin incision into the pleural space using negative aspiration pressure and the red colometric indicator to confirm appropriate positioning of the needle. The thoracentesis catheter was then threaded without difficulty. 1700 ml of turbid colored fluid was removed without difficulty. The catheter was then removed. No immediate complications were noted during the procedure. A post-procedure chest x-ray is pending at the time of this note. The fluid was not sent for studies. Estimated blood loss is 0cc
[2023-11-02 16:36] LABS: Glucose,Whole Blood 192 mg/dL (70-110)
[2023-11-02 19:27] LABS: Glucose, BF Source Pleural Fluid; Glucose, Body Fluid 189 mg/dL; LDH, Body Fluid Source Pleural Fluid; T. Protein, Body Fluid Source Pleural Fluid; Total Protein, Body Fluid 2670 mg/dL
[2023-11-02 19:57] LABS: Glucose,Whole Blood 263 mg/dL (70-110)
[2023-11-02 20:42] LABS: Appearance,BF Bloody (Clear)
[2023-11-02] MEDS: APIXABAN 5 MG TAB PO SCH (21:29)
[2023-11-03 02:09] LABS: Glucose,Whole Blood 208 mg/dL (70-110)
[2023-11-03 05:56] LABS: Glucose,Whole Blood 172 mg/dL (70-110)
--- NOTE | 2023-11-03 09:05 | P.PN ---
Subjective Progress Note Date: 11/02/23 Principal diagnosis: Reason for follow-up is right lower extremity cellulitis and question of pneumonia Patient is a 83-year-old male with a past medical history significant for diabetes mellitus hypertension hyperlipidemia COPD atrial fibrillation pneumonia prostate disorder patient has been brought into the hospital for evaluation of increasing shortness of breath and right leg swelling with concern for right lower extremity cellulitis and possible pneumonia. On today's evaluation that is 11/02/2023, Patient is afebrile this morning patient denies having any chest pain shortness of breath or cough, the patient is breathing comfortably and currently on 4 L nasal cannula oxygen, patient denies any abdominal pain no diarrhea no nausea no vomiting. Patient did have a creatinine 0.99 no CBC was done today pleural fluid was bloody white cell count 23 Objective - Vital Signs Vital signs: Vital Signs Temp 97.5 F L 11/02/23 15:47 Pulse 95 11/02/23 15:47 Resp 19 11/02/23 15:47 BP 114/54 11/02/23 15:47 Pulse Ox 89 L 11/02/23 15:47 FiO2 Intake & Output 11/01/23 11/02/23 11/02/23 18:59 06:59 18:59 Intake Total 480 168 Output Total 953 673 7923 Balance Weight 58.5 kg 70 kg Intake: Intake, IV Titration 50 Amount ceFAZolin 2 gm In Sodium 50 Chloride 0.9% 50 ml @ 100 mls/hr IVPB Q8H [facility] Rx#: [id number] Oral 480 118 Output: Urine 400 400 500 Stool 2 2 2 Other 1700 Other: Voiding Method Diaper Diaper Diaper Incontinent Incontinent Incontinent External Catheter External Catheter External Catheter # Voids 1 - Exam GENERAL DESCRIPTION: An elderly male lying in bed in no distress RESPIRATORY SYSTEM: Unlabored breathing , decreased breath sounds at bases HEART: S1 S2 regular rate and rhythm , ABDOMEN: Soft , no tenderness EXTREMITIES: Right lower extremity slight erythema which is warm to touch - Labs CBC & Chem 7: 10/31/23 07:34 11/02/23 07:01 Labs: Abnormal Lab Results - Last 24 Hours (Table) 11/01/23 11/01/23 11/02/23 Range/Units 16:11 20:05 02:01 Sodium (137-145) mmol/L Carbon Dioxide (22-30) mmol/L BUN (9-20) mg/dL Glucose (74-99) mg/dL POC Glucose (mg/dL) 161 H 195 H 162 H (70-110) mg/dL 11/02/23 11/02/23 11/02/23 Range/Units 06:02 07:01 11:46 Sodium 136 L (137-145) mmol/L Carbon Dioxide 37 H (22-30) mmol/L BUN 39 H (9-20) mg/dL Glucose 153 H (74-99) mg/dL POC Glucose (mg/dL) 196 H 171 H (70-110) mg/dL Assessment and Plan (1) Abnormal chest x-ray Current Visit: Yes Status: Acute Code(s): R93.89 - ABNORMAL FINDINGS ON DX IMAGING OF OTH BODY STRUCTURES SNOMED Code(s): 849141945 (2) Leukocytosis Current Visit: No Status: Acute Code(s): D72.829 - ELEVATED WHITE BLOOD CELL COUNT, UNSPECIFIED SNOMED Code(s): 998732460 (3) Cellulitis of leg, right Current Visit: Yes Status: Acute Code(s): L03.115 - CELLULITIS OF RIGHT LOWER LIMB SNOMED Code(s): 69186513817553239 Plan: 1patient presented to hospital with increasing shortness of breath lower extremity swelling questionable of fluid overload CHF as the patient did have a bilateral effusion swelling to the lower extremity which is red and warm to touch 2-patient leukocytosis possibly steroid related with Solu-Medrol white count did come down to 12,000, no CBC was done today 3 patient did have a component of right leg cellulitis, for which the patient is covered with cefazolin. 4the patient did have a bilateral thoracocentesis done fluid white count is not significantly elevated more likely transudative possible cardiac etiology Dictation was produced using Get[employer] software. please excuse any grammatical, word or spelling errors.
--- NOTE | 2023-11-03 11:06 | P.PN ---
Subjective HISTORY OF PRESENT ILLNESS: Patient is a pleasant 83-year-old male with significant past medical history of COPD, paroxysmal atrial fibrillation, hypertension, hyperlipidemia, congestive heart failure, and lymphedema who was admitted with complaints of right ankle cellulitis, shortness of breath, cough. He does follow with Dr. Welsh in the office. Over the past 3 weeks he has had multiple admissions here at [facility] however, system was down and reports are unavailable currently. He was also admitted at [facility] with shortness of breath and pneumonia. Cardiology was consulted for episode of A-fib with RVR overnight. He reports that last night he was feeling more short of breath and was found to be in A-fib with RVR, a team was called. He was started on a Cardizem drip and increased on his oxygen. He is back in the normal sinus rhythm now. Prior to a month ago he had been doing well and had been at home getting around with a cane. He denies any chest pain or pressure. Lower extremity swelling has improved. He did have a prior heart catheterization 05/2021 which showed mild CAD with 20-30% proximal LAD stenosis. 10/31/2023 Patient examined this morning at the bedside. Patient currently denies chest pain or pressure. Patient currently denies shortness of breath. Telemetry reveals atrial fibrillation with heart rate around 100. Patient has been having runs of nonsustained ventricular tachycardia. Echocardiogram completed in the office in July 2023 revealed ejection fraction 55%, mild aortic regurgitation, mild tricuspid regurgitation, severely increased pulmonary artery systolic pressure with RVSP 70 mmHg. Patient did have a recent echocardiogram performed here. Spoke with control technician who stated LV function was normal, no wall motion abnormalities, and pleural effusion was noted. 11/01/2023 Patient examined this morning the bedside. Patient currently denies chest pain or pressure. He reports shortness of breath. He remains on IV Lasix. 11/02/2023 Patient examined this morning the bedside. Patient continues to report shortness of breath. He underwent right-sided thoracentesis yesterday with 2 L of fluid. Patient's spouse states that patient is to undergo left-sided thoracentesis today. His Eliquis remains on hold. Telemetry reveals sinus mechanism with PACs with bursts of atrial fibrillation 11/03/2023 Patient examined this morning. Patient underwent left-sided thoracentesis yesterday with removal of 1700 cc. His Eliquis has been resumed. Patient currently denies chest pain or pressure. Telemetry reveals sinus mechanism. He remains on IV Lasix. PHYSICAL EXAM: VITAL SIGNS: Reviewed. GENERAL: Well-developed in no acute distress. NECK: Supple. No JVD or thyromegaly LUNGS: Respirations even and unlabored. Lungs essentially clear to auscultation bilaterally. HEART: Regular rate and rhythm. S1 and S2 heard. EXTREMITIES: Normal range of motion. No clubbing or cyanosis. Peripheral pulses intact. No lower extremity edema ASSESSMENT: Paroxysmal atrial fibrillation Acute on chronic congestive heart failure with preserved EF Bilateral pleural effusions status post right sided thoracentesis with removal of 2 L, 11/01/2023 Status post left-sided thoracentesis with removal of 1.7 L, 11/02/2023 Nonsustained ventricular tachycardia Recent hospitalization at [facility] for pneumonia Hypertension Hyperlipidemia COPD History of lymphedema PLAN: Continue current dose of metoprolol Avoid amiodarone Continue IV Lasix 40 mg every 12 hours. Likely transition to oral diuretics t omorrow. Daily weights, accurate intake and output, and monitoring of kidney function Continue anticoagulation with Eliquis Further recommendations pending patient course Nurse practitioner note has been reviewed by physician. Signing provider agrees with the documented findings, assessment, and plan of care documented by GREENHOUSE MANAGER as a scribe. Objective - Vital Signs Vital signs: Vital Signs Temp 96.8 F L 11/03/23 09:19 Pulse 58 L 11/03/23 09:19 Resp 20 11/03/23 09:19 BP 108/55 11/03/23 09:19 Pulse Ox 90 L 11/03/23 09:19 FiO2 Intake & Output 11/02/23 11/03/23 11/03/23 18:59 06:59 18:59 Intake Total 286 418 Output Total 2552 452 500 Balance -2266 -452 -82 Weight 68 kg Intake: IV 250 .9@20 240 Invasive Line 3 10 Intake, IV Titration 50 50 Amount ceFAZolin 2 gm In Sodium 50 50 Chloride 0.9% 50 ml @ 100 mls/hr IVPB Q8H [facility] Rx#: [id number] Oral 236 118 Output: Urine 850 450 500 Stool 2 2 Other 1700 Other: Voiding Method Diaper Diaper Diaper Incontinent Incontinent Incontinent External Catheter External Catheter External Catheter # Voids 1 # Bowel Movements 1 1 - Labs CBC & Chem 7: 10/31/23 07:34 11/02/23 07:01 Labs: Abnormal Lab Results - Last 24 Hours (Table) 11/02/23 11/02/23 11/02/23 Range/Units 11:00 11:46 16:34 POC Glucose (mg/dL) 171 H 192 H (70-110) mg/dL Fluid Appearance Bloody A (Clear) 11/02/23 11/03/23 11/03/23 Range/Units 19:55 02:07 05:55 POC Glucose (mg/dL) 263 H 208 H 172 H (70-110) mg/dL Fluid Appearance (Clear) Microbiology - Last 24 Hours (Table) 11/02/23 11:00 Gram Stain - Preliminary Pleural Fluid
[2023-11-03 11:36] LABS: Glucose,Whole Blood 219 mg/dL (70-110)
--- NOTE | 2023-11-03 14:15 | P.PN ---
Subjective Progress Note Date: 11/02/23 HISTORY OF PRESENT ILLNESS: 83-year-old with active medical history of congestive heart failure with worsening exacerbation both systolic and diastolic, history of COPD, history of hypertension, hyperlipidemia, atrial fibrillation postcardiac ablation, chronic pleural effusion with previous history of thoracentesis, chronic dementia, history of anasarca and worsening edema required diuretics on and off, chronic kidney disease with worsening symptoms with diuretics, he has been in the hospital since October 24 shortly after he was admitted to [facility] for almost a week for similar complaint which patient has been in this time for worsening shortness of breath edema with anasarca. Continue to see pulmonary critical care, continue to see cardiology, infectious disease nephrology. Patient still on 4 L of O2 try to keep his pulse ox above 90 percentile, had an episode of A-fib with RVR was initiated on Cardizem drip 5 mg an hour apparently change her CODE STATUS yesterday to DO NOT RESUSCITATE with his lab value from last 24 hours hemoglobin still stable but white blood cell 24,600 continue to have chronic kidney disease with GFR of 30. Chest x-ray consistent with fluid overload. Continue to treat patient with aggressive management for his anasarca and CHF still been treated for COPD as well as pleural effusion looks like multi subspecialist follow-up for the last 2 years with recurrent episode require seen patient in almost on weekly basis and multi hospitalization. Biggest at this point at least finally the made him DO NOT RESUSCITATE will continue to work toward palliative care by the time you leave the hospital this time. Patient is debilitated without she has been agreeable to take him home or he required to go to rehab is to be determined. 11/01/2023: Review of his testing from last 24 hours kidney function still holding well with GFR at 51, white blood cell 12.9 with normal hemoglobin, his blood sugar dropped down this morning to be quite bit hypoglycemic at 36 through the night was close to 200. Continue to be in A-fib by EKG from last 24 hours currently show A-fib with pulse rate running at 110 beats per minutes. Still seeing cardiology and still on Cardizem. Still require 4 L O2 to keep his pulse ox above 90-92 percentile, with increase of Lasix to 40 mg twice a day with diuresing that more. Have long discussion with the today about hospice and palliative care and excepting the fact that she is making arrangement to have patient go either home on hospice or go to the hospice house which the patient will be talking again with the social media job titles about it today for final decision and plan probably by the end of the day and by early tomorrow morning. 11/02/2023: He ended up having 2000 cc of turbid color fluid removed via paracentesis with pulmonary without any difficulty. His breathing has improved significantly with finding of his x-ray showed significant fluid more on the left on the right side based on how much fluid was removed it looks a lot more than what expected on the chest x-ray. Blood sugar was quite bit low yesterday backing off on regular insulin has corrected we should keep patient without any long-acting or any regular NovoLog AC meals just continue the sliding scales had helped. Today waiting for final decision and conclusion to when will be ready for hospice hopefully sometime later today should be able to discharge patient either to the hospice house or home on hospice. Even the who accepted the fact that hospice will be the involvement she is still asking for more aggressive management with physical therapy and IV antibiotic and thoracentesis. Which I agree some of those will be done for comfort purposes at this point knowing that does not change the morbidity and mortality still high in the next few months. But agree to keep everybody happy and satisfied patient and his still not able to make a decision whether he wants to go to the hospice house or go to inpatient rehab or going home on hospice. REVIEW OF SYSTEMS: CONSTITUTIONAL: Elderly mild respiratory distress EYES: No icterus sclerae, no conjunctivitis. EARS, NOSE, MOUTH, THROAT, and FACE: No sore throat, lymphadenopathy, carotid bruits or deformity. RESPIRATORY: Positive shortness of breath cough and wheezes. CARDIOVASCULAR: Positive PND orthopnea palpitation. GASTROINTESTINAL: No Abd pain, Nausea or vomiting, no Diarrhea or constipation, No GI Bleed, no distention or masses. GENITOURINARY: Negative for Hematuria or UTI, no kidney stones. INTEGUMENT/BREAST: Negative for any muscular injury with mild osteoarthritis.. HEMATOLOGIC/LYMPHATIC: Negative for bleed or purpura. MUSCULOSKELTAL: Negative for Myalgia or arthralgia. NEURLOGICAL: No LOC, Sz or syncope, blurred vision dizziness or abnormality.. BEHAVIORAL/PSYCH: Negative. ENDOCRINE: Negative. PHYSICAL EXAMINATION: General Appearance: Alert, cooperative, mild respiratory distress. Neck HEENT: Supple, no lymphadenopathy, no thyroid enlargement, no carotid bruits. Lungs: Decreased breath sound bilaterally especially the right side past 5 rhonchi with crackles present at expected wheezes. Chest Wall: Chest wall normal expansion with deep inspiration no tenderness and no deformity was found on exam, no costochondral pain or discomfort. Heart: Irregular rhythm and rate , S1, S2 normal, no murmur, rub or gallop. Back: Symmetric, no curvature, ROM normal, no CVA tenderness. Abdomen: Soft, non-tender, bowel sounds active all four quadrants, no masses, no organomegaly. Extremities: Extremities normal, atraumatic, no cyanosis or positive edema. Skin: Skin color, texture, tugor normal, no rashes or lesions. Neurologic: Alert oriented x3 cranial nerves II through XII intact, no motor deficit, no abnormal balance or gait. ASSESSMENT AND PLAN: _Acute hypoxic respiratory failure secondary to CHF and mild COPD with A-fib with the current condition become quite debilitated and more end-stage for both CHF and COPD with worsening anasarca patient be on hospice care. 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 _A-fib with RVR: With chronic history of atrial fibrillation remain on Eliquis currently still on Cardizem drip switch to Cardizem orally and still on metoprolol pulse rate is better since. Pulse rate still above 110 to increase Cardizem today. Pulse rate slightly better with increase of Cardizem. _Anasarca and bilateral edema: Remain on higher albumin intake with furosemide 40 mg IV twice a day and spironolactone. _Large pleural effusion: Postthoracentesis yesterday successfully for 2000 cc of not clear-colored fluid. _COPD remain on O2 and updraft treatment he is not in any exacerbation. _Acute kidney injury: Creatinine stabilized at 1.37 with GFR still running in the 30s. _Severe hypoglycemia: Secondary to the long-acting and short acting insulin which mostly was started when patient was on a large dose of steroid he does not need anymore at this point he is off long-acting and short acting he is on sliding scales only. _Right leg cellulitis: Remain on cefazolin. Still seen infectious disease. _CODE STATUS: DO NOT RESUSCITATE. Looking into hospice care. _GI prophylaxis still on PPI. _Discussion: not ready for final decision at this point still doing physical therapy along with aggressive Management with IV diuretics, cardiology consultation and other Objective - Vital Signs Vital signs: Vital Signs Temp 97.0 F L 11/02/23 04:00 Pulse 74 11/02/23 04:00 Resp 18 11/02/23 04:00 BP 98/60 11/02/23 04:00 Pulse Ox 97 11/02/23 04:00 FiO2 Intake & Output 11/01/23 11/01/23 11/02/23 06:59 18:59 06:59 Intake Total 480 Output Total 450 402 402 Balance -450 78 -402 Weight 58.5 kg 58.5 kg 70 kg Intake: Oral 480 Output: Urine 450 400 400 Stool 2 2 Other: Voiding Method Diaper Diaper Diaper Incontinent Incontinent Incontinent External Catheter External Catheter External Catheter # Voids 1 - Labs CBC & Chem 7: 10/31/23 07:34 11/02/23 07:01 Labs: Abnormal Lab Results - Last 24 Hours (Table) 11/01/23 11/01/23 11/01/23 Range/Units 06:21 06:23 06:41 Sodium (137-145) mmol/L Carbon Dioxide (22-30) mmol/L BUN (9-20) mg/dL Glucose (74-99) mg/dL POC Glucose (mg/dL) 31 L* 36 L* 68 L (70-110) mg/dL 11/01/23 11/01/23 11/01/23 Range/Units 07:00 11:06 14:24 Sodium 134 L (137-145) mmol/L Carbon Dioxide 32 H (22-30) mmol/L BUN 42 H (9-20) mg/dL Glucose 219 H (74-99) mg/dL POC Glucose (mg/dL) 127 H 265 H (70-110) mg/dL 11/01/23 11/01/23 11/02/23 Range/Units 16:11 20:05 02:01 Sodium (137-145) mmol/L Carbon Dioxide (22-30) mmol/L BUN (9-20) mg/dL Glucose (74-99) mg/dL POC Glucose (mg/dL) 161 H 195 H 162 H (70-110) mg/dL 11/02/23 Range/Units 06:02 Sodium (137-145) mmol/L Carbon Dioxide (22-30) mmol/L BUN (9-20) mg/dL Glucose (74-99) mg/dL POC Glucose (mg/dL) 196 H (70-110) mg/dL
--- NOTE | 2023-11-03 14:17 | P.PN ---
Subjective Progress Note Date: 11/03/23 HISTORY OF PRESENT ILLNESS: 83-year-old with active medical history of congestive heart failure with worsening exacerbation both systolic and diastolic, history of COPD, history of hypertension, hyperlipidemia, atrial fibrillation postcardiac ablation, chronic pleural effusion with previous history of thoracentesis, chronic dementia, history of anasarca and worsening edema required diuretics on and off, chronic kidney disease with worsening symptoms with diuretics, he has been in the hospital since October 24 shortly after he was admitted to [facility] for almost a week for similar complaint which patient has been in this time for worsening shortness of breath edema with anasarca. Continue to see pulmonary critical care, continue to see cardiology, infectious disease nephrology. Patient still on 4 L of O2 try to keep his pulse ox above 90 percentile, had an episode of A-fib with RVR was initiated on Cardizem drip 5 mg an hour apparently change her CODE STATUS yesterday to DO NOT RESUSCITATE with his lab value from last 24 hours hemoglobin still stable but white blood cell 24,600 continue to have chronic kidney disease with GFR of 30. Chest x-ray consistent with fluid overload. Continue to treat patient with aggressive management for his anasarca and CHF still been treated for COPD as well as pleural effusion looks like multi subspecialist follow-up for the last 2 years with recurrent episode require seen patient in almost on weekly basis and multi hospitalization. Biggest at this point at least finally the made him DO NOT RESUSCITATE will continue to work toward palliative care by the time you leave the hospital this time. Patient is debilitated without she has been agreeable to take him home or he required to go to rehab is to be determined. 11/01/2023: Review of his testing from last 24 hours kidney function still holding well with GFR at 51, white blood cell 12.9 with normal hemoglobin, his blood sugar dropped down this morning to be quite bit hypoglycemic at 36 through the night was close to 200. Continue to be in A-fib by EKG from last 24 hours currently show A-fib with pulse rate running at 110 beats per minutes. Still seeing cardiology and still on Cardizem. Still require 4 L O2 to keep his pulse ox above 90-92 percentile, with increase of Lasix to 40 mg twice a day with diuresing that more. Have long discussion with the today about hospice and palliative care and excepting the fact that she is making arrangement to have patient go either home on hospice or go to the hospice house which the patient will be talking again with the social media director about it today for final decision and plan probably by the end of the day and by early tomorrow morning. 11/02/2023: He ended up having 2000 cc of turbid color fluid removed via paracentesis with pulmonary without any difficulty. His breathing has improved significantly with finding of his x-ray showed significant fluid more on the left on the right side based on how much fluid was removed it looks a lot more than what expected on the chest x-ray. Blood sugar was quite bit low yesterday backing off on regular insulin has corrected we should keep patient without any long-acting or any regular NovoLog AC meals just continue the sliding scales had helped. Today waiting for final decision and conclusion to when will be ready for hospice hopefully sometime later today should be able to discharge patient either to the hospice house or home on hospice. Even the who accepted the fact that hospice will be the involvement she is still asking for more aggressive management with physical therapy and IV antibiotic and thoracentesis. Which I agree some of those will be done for comfort purposes at this point knowing that does not change the morbidity and mortality still high in the next few months. But agree to keep everybody happy and satisfied patient and his still not able to make a decision whether he wants to go to the hospice house or go to inpatient rehab or going home on hospice. 11/03/2023: I had long meeting with the , the daughter who is visiting from [place] and the neighbor who is helping the some of the management. Kenroy was able with help of physical therapy to get out of bed to the chair today which him and his are very happy with it and he seemed to have better outlook after thoracentesis was done and shortness of breath has improved. Will continue current management apparently seeing cardiology early who agreed to give IV diuretics for at least another 24 hours. had met with hospice and they are agreeable to move on with all equipment needed and prepare for hospice which the does not want to do till Monday wants to give him more chance to do physical therapy and aggressive IV diuretics and on Monday will take him home on hospice. REVIEW OF SYSTEMS: CONSTITUTIONAL: Elderly mild respiratory distress EYES: No icterus sclerae, no conjunctivitis. EARS, NOSE, MOUTH, THROAT, and FACE: No sore throat, lymphadenopathy, carotid bruits or deformity. RESPIRATORY: Positive shortness of breath cough and wheezes. CARDIOVASCULAR: Positive PND orthopnea palpitation. GASTROINTESTINAL: No Abd pain, Nausea or vomiting, no Diarrhea or constipation, No GI Bleed, no distention or masses. GENITOURINARY: Negative for Hematuria or UTI, no kidney stones. INTEGUMENT/BREAST: Negative for any muscular injury with mild osteoarthritis.. HEMATOLOGIC/LYMPHATIC: Negative for bleed or purpura. MUSCULOSKELTAL: Negative for Myalgia or arthralgia. NEURLOGICAL: No LOC, Sz or syncope, blurred vision dizziness or abnormality.. BEHAVIORAL/PSYCH: Negative. ENDOCRINE: Negative. PHYSICAL EXAMINATION: General Appearance: Alert, cooperative, mild respiratory distress. Neck HEENT: Supple, no lymphadenopathy, no thyroid enlargement, no carotid bruits. Lungs: Decreased breath sound bilaterally especially the right side past 5 rhonchi with crackles present at expected wheezes. Chest Wall: Chest wall normal expansion with deep inspiration no tenderness and no deformity was found on exam, no costochondral pain or discomfort. Heart: Irregular rhythm and rate , S1, S2 normal, no murmur, rub or gallop. Back: Symmetric, no curvature, ROM normal, no CVA tenderness. Abdomen: Soft, non-tender, bowel sounds active all four quadrants, no masses, no organomegaly. Extremities: Extremities normal, atraumatic, no cyanosis or positive edema. Skin: Skin color, texture, tugor normal, no rashes or lesions. Neurologic: Alert oriented x3 cranial nerves II through XII intact, no motor deficit, no abnormal balance or gait. ASSESSMENT AND PLAN: _Acute hypoxic respiratory failure secondary to CHF and mild COPD with A-fib with the current condition become quite debilitated and more end-stage for both CHF and COPD with worsening anasarca patient be on hospice care. 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 _A-fib with RVR: With chronic history of atrial fibrillation remain on Eliquis currently still on Cardizem drip switch to Cardizem orally and still on metoprolol pulse rate is better since. Pulse rate still above 110 to increase Cardizem today. Pulse rate slightly better with increase of Cardizem. _Anasarca and bilateral edema: Remain on higher albumin intake with furosemide 40 mg IV twice a day and spironolactone. _Large pleural effusion: Postthoracentesis yesterday successfully for 2000 cc of not clear-colored fluid. _COPD remain on O2 and updraft treatment he is not in any exacerbation. _Acute kidney injury: Creatinine stabilized at 1.37 with GFR still running in the 30s. _Severe hypoglycemia: Secondary to the long-acting and short acting insulin which mostly was started when patient was on a large dose of steroid he does not need anymore at this point he is off long-acting and short acting he is on sliding scales only. _Right leg cellulitis: Remain on cefazolin. Still seen infectious disease. _CODE STATUS: DO NOT RESUSCITATE. Looking into hospice care. _GI prophylaxis still on PPI. _Discussion: Will continue aggressive management with IV diuretics including spironolactone oral and continue to do physical therapy in the meanwhile hospice are in agreement to keep working toward a goal of having him at home on hospice on Monday. Objective - Vital Signs Vital signs: Vital Signs Temp 95.8 F L 11/03/23 09:19 Pulse 64 11/03/23 11:41 Resp 20 11/03/23 11:34 BP 94/58 11/03/23 11:34 Pulse Ox 93 L 11/03/23 11:34 FiO2 Intake & Output 11/02/23 11/03/23 11/03/23 18:59 06:59 18:59 Intake Total 286 418 Output Total 2552 452 900 Balance -2266 -452 -482 Weight 68 kg Intake: IV 250 .9@20 240 Invasive Line 3 10 Intake, IV Titration 50 50 Amount ceFAZolin 2 gm In Sodium 50 50 Chloride 0.9% 50 ml @ 100 mls/hr IVPB Q8H [facility] Rx#: [id number] Oral 236 118 Output: Urine 850 450 900 Stool 2 2 Other 1700 Other: Voiding Method Diaper Diaper Diaper Incontinent Incontinent Incontinent External Catheter External Catheter External Catheter # Voids 1 # Bowel Movements 1 1 - Labs CBC & Chem 7: 10/31/23 07:34 11/02/23 07:01 Labs: Abnormal Lab Results - Last 24 Hours (Table) 11/02/23 11/02/23 11/02/23 Range/Units 11:00 16:34 19:55 POC Glucose (mg/dL) 192 H 263 H (70-110) mg/dL Fluid Appearance Bloody A (Clear) 11/03/23 11/03/23 11/03/23 Range/Units 02:07 05:55 11:34 POC Glucose (mg/dL) 208 H 172 H 219 H (70-110) mg/dL Fluid Appearance (Clear) Microbiology - Last 24 Hours (Table) 11/02/23 11:00 Gram Stain - Preliminary Pleural Fluid
--- NOTE | 2023-11-03 14:22 | P.PN ---
Subjective Progress Note Date: 11/03/23 Patient is an 83-year-old white male with past medical history significant for COPD, hypertension, hyperlipidemia, atrial fibrillation status post cardiac ablation, heart failure, pleural effusion with previous thoracentesis. Also, has dementia and is technically a poor historian. Presented to the emergency room yesterday afternoon complaining primarily of shortness of breath and lower extremity swelling. Reportedly has been treated outpatient with multiple rounds of antibiotics for pneumonia. Patient is currently being evaluated the emergency department. Not a very good historian. No acute respiratory distress. Currently on 2 L/min nasal cannula, SpO2 99%. He does have a congested cough. Currently afebrile. He does have significant bilateral lower extremity swelling and his right foot/ankle is erythemic and warm. Venous Doppler of the right lower extremity negative for DVT. Chest x-ray showing pulmonary vascular congestion, small to moderate bilateral pleural effusions with associated atelectasis versus infiltrate. NT proBNP elevated at 2850. CBC: WBC count 12.2, hemoglobin 14.2, hematocrit 43.6, platelets 276. CMP: Sodium 136, potassium 3.7, chloride 102, serum bicarb 28, BUN 48, creatinine 1.49, glucose 220. Lactic peaked at 3 and down to 2.8. Magnesium 1.4. LFTs unremarkable. Troponin 0.038. EKG showing normal sinus rhythm without any obvious acute ischemic changes. Hemodynamically, the patient is stable at this time. Progress note dated October 27, 2023. 83-year-old male well-known to me. He has a history of COPD, hypertension, hyperlipidemia, atrial fibrillation, heart failure, and previous pleural effusion. The patient is also demented. The patient was brought into the emergency department, with complaints of shortness of breath, and lower ext remity edema. The patient was thought to have either heart failure, and or pneumonia. The patient's procalcitonin level was 0.12. N-terminal proBNP is 2850. He is on 2 L of oxygen. Saturations are 95%. Zosyn is discontinued. He is getting saline at 10 cc an hour. A glucose of 262. Progress note dated October 28, 2023. 83-year-old male seen in room 358. He is doing better today. He is on 3 L. His is in the room. He is not receiving any IV fluids. Dopplers of the upper extremities were negative bilaterally. The patient was seen by the infectious disease doctor, and even though the procalcitonin level was normal, he started the patient on Ancef for presumed cellulitis of the lower extremity. I believe that is unnecessary. The patient is better from the pulmonary standpoint. Current labs include a white count 18.7, hemoglobin 13.6, hematocrit 41.8, platelet count 296,000. Sodium 137, potassium 3.6, chlorides 100, CO2 31, BUN 39, creatinine 1.35. Calcium is 10.1. Procalcitonin level was 0.12. He tested negative for coronavirus, and Legionella. Progress note dated October 29, 2023. 83-year-old male seen today in room 358. The patient continues on oxygen, at 3 L. He is getting saline at 10 cc an hour. He looks reasonably stable. He does have a congested wet cough. His , who is usually in the room, was not there today. No new labs today other than a glucose of 116. Progress note dated October 30, 2023. 83-year-old male seen today in room 358. The patient's is in the room, and she is very tearful. Apparently last night, the patient had an episode of atrial fibrillation with RVR. The patient was seen by the housestaff. Currently he is on 4 L of oxygen. He is also getting Cardizem at 5 mg an hour. The EKG showed evidence of atrial fibrillation with RVR. Today we had a long talk with the patient's , about CODE STATUS. The patient is now a no code. He would not want to be on life support. Current labs include a white count 24.6, hemoglobin 15.3, hematocrit 48.7, and a platelet count is normal. Sodium 139, potassium 4, chlorides 101, CO2 31, BUN 47, and creatinine 1.37. Glucose is 113. Calcium is 10.4. Chest x-ray is consistent with fluid overload. It was done on October 28. On today's evaluation of 11/03/2023, the patient remains on oxygen 4 L/min nasal cannula. The patient is known to have congestion heart failure, COPD, paroxysmal atrial fibrillation, hypertension hyperlipidemia. The patient is sandie ng seen for shortness of breath. Noted the patient was hospitalized earlier to [facility] in [facility] for shortness of breath and pneumonia. He did encounter A-fib RVR, placed on a Cardizem drip and currently is rate is under better control. Hemodynamically stable and the patient is afebrile. The patient remains on Toprol 50 mg p.o. twice a day. The patient is also on Symbicort and DuoNeb nebulized treatments [id number]. Rest of the home medications have been resumed. Remains on insulin 10 units at bedtime and 2 units with meals and a sliding scale coverage. In terms of labs, the white circles of 12.9 with a heme of 13.3, BUN is 46 with a creatinine of 1.28 and a sodium levels of 139. His creatinine is gradually improved. Noted his cardiac catheterization from May 2021 showed mild CAD with 20 to 30% proximal LAD stenosis. The patient has a preserved LV function. Most recent chest x-ray from 10/29/2023 showed evidence of fluid overload with small to moderate-sized right-sided effusion and left-sided pleural effusion. Noted the patient has undergone a previous thoracentesis back in 2022 and the fluid itself was a transudate. For now, he is on IV Lasix 40 mg every 12 hours. He is in a negative fluid balance for now. On today's evaluation of 11/01/2023, I am see the patient for a follow-up. The patient is calm and comfortable on room air oxygen. Denies having any significant shortness of breath. Denies having any chest pain. Continues to be in a negative fluid balance as the patient is being diuresed with Lasix and the patient is currently on 40 mg IV Lasix every 12 hours and the patient is also on Aldactone 25 mg p.o. daily. Remains on metoprolol 50 mg p.o. twice a day. Remains on DuoNeb nebulized treatments [id number] and Symbicort as maintenance. No altered mentation. No chest pain. No other complaints otherwise. Sodium is at 134 with a potassium level of 4.4, BUN is 42 with a creatinine of 1.01 and the patient has no specific complaints. Noted, ultrasound of the chest was done this morning and ultrasound marking showed a large right- sided pleural effusion measuring 19 cm in size in addition to a moderate-sized left-sided pleural effusion measuring 9.7 cm in size. I performed a bedside thoracentesis on this patient and a total of 2 L of fluid was aspirated without any complications. Follow-up chest x-ray following the procedure showed interval decrease in the right-sided pleural effusion with a small residual right-sided pleural effusion without any pneumothorax. There was still a small to moderate-sized left-sided pleural effusion present. The patient is still off anticoagulation in anticipation for another procedure for left-sided thoracentesis tomorrow.A swallow evaluation was also done today for dysphagia On today's evaluation of 11/02/2023, the patient is being seen for a follow-up. The patient underwent a thoracentesis yesterday involving the right lung and a total of 2 L of pleural fluid was removed. Patient has no significant respiratory distress. Oxygenation remained stable. I did like discussion with the who opted to drain the left chest. Based on that, a left-sided thoracentesis was also done today and a total of 1.7 L of pleural fluid was also aspirated. No complications. The postprocedure chest x-ray showed no evidence of any pneumothorax and there is interval reduction amount of pleural effusion on the left without any sizable pneumothorax. BUN 39 with a creatinine of 0.9 and sodium levels at 136 and a potassium level is at 4.5 and a serum bicarb is c urrently at 37. Afebrile. Hemodynamically stable. On today's evaluation of 11/03/2023, the patient's respiratory status is stable. No significant respite difficulties. The patient had undergone bilateral thoracentesis. The patient is also on Lasix 40 mg IV every 12 hours. Anticoagulation was resumed yesterday. Meanwhile, the patient has working with physical therapy. Hospice consultation has been obtained. Serum bicarb is at 37. BUN is 39 with a creatinine of 0.9 and a sodium levels at 136. At this point in time, the patient on 40 Suboxone by nasal cannula with a pulse ox of 93%. No other significant events overnight. He is a DNR/DNI. Objective - Vital Signs Vital signs: Vital Signs Temp 95.8 F L 11/03/23 09:19 Pulse 64 11/03/23 11:41 Resp 20 11/03/23 11:34 BP 94/58 11/03/23 11:34 Pulse Ox 93 L 11/03/23 11:34 FiO2 Intake & Output 11/02/23 11/03/23 11/03/23 18:59 06:59 18:59 Intake Total 286 418 Output Total 2552 452 500 Balance -2266 -452 -82 Weight 68 kg Intake: IV 250 .9@20 240 Invasive Line 3 10 Intake, IV Titration 50 50 Amount ceFAZolin 2 gm In Sodium 50 50 Chloride 0.9% 50 ml @ 100 mls/hr IVPB Q8H [facility] Rx#: [id number] Oral 236 118 Output: Urine 850 450 500 Stool 2 2 Other 1700 Other: Voiding Method Diaper Diaper Diaper Incontinent Incontinent Incontinent External Catheter External Catheter External Catheter # Voids 1 # Bowel Movements 1 1 - Exam No acute distress, lethargic, currently on 4 L nasal cannula. Saturations are 93 %. HEENT examination is grossly unremarkable. Neck supple. Full range of motion. No adenopathy thyromegaly or neck vein distention. Cardiovascular examination reveals regular rhythm rate. S1-S2 normal. No S3 or S4. No discernible murmur noted. Heart sounds are distant. Lungs reveal scattered rhonchi and crackles. Breath sounds equal. No wheezes. Breath sounds diminished throughout. There is improved aeration in both lungs following bilateral thoracentesis. Abdomen soft bowel sounds are heard. No masses or tenderness. Extremities are intact. No cyanosis or clubbing. There is 1+ pitting edema. Mild erythema of the lower extremities. Skin is without rash or lesion. Neurologic examination is brief but nonfocal. - Labs CBC & Chem 7: 10/31/23 07:34 11/02/23 07:01 Labs: Abnormal Lab Results - Last 24 Hours (Table) 11/02/23 11/02/23 11/02/23 Range/Units 11:00 11:46 16:34 POC Glucose (mg/dL) 171 H 192 H (70-110) mg/dL Fluid Appearance Bloody A (Clear) 11/02/23 11/03/23 11/03/23 Range/Units 19:55 02:07 05:55 POC Glucose (mg/dL) 263 H 208 H 172 H (70-110) mg/dL Fluid Appearance (Clear) 11/03/23 Range/Units 11:34 POC Glucose (mg/dL) 219 H (70-110) mg/dL Fluid Appearance (Clear) Microbiology - Last 24 Hours (Table) 11/02/23 11:00 Gram Stain - Preliminary Pleural Fluid Assessment and Plan Plan: Acute hypoxemic respiratory failure, likely related to CHF, doubt pneumonia. The patient has bilateral pleural effusion right more than left and the patient is currently on oxygen 4 L/min nasal cannula. Left-sided thoracentesis was done today today on 11/02/2023 with removal of 1.7 L of pleural fluid. Right-sided thoracentesis was done on 11/01/2023 with a total of 2 L of fluid removed. Respiratory status is stable for now. Previous history of bilateral pleural effusion requiring thoracentesis evacuation of 1.8 L of pleural fluid from the right back in 2022 and the fluid was a transudate. I performed another thoracentesis of the right lung on 11/01/2023 with removal of 2 L of pleural fluid from the right hemithorax without any major complications. Chest x-ray shows a persistent moderate-sized left-beatriz ed pleural effusion. Thoracentesis was done on 11/02/2023 on the left evacuating around 1700 cc of pleural fluid. No complications. Paroxysmal atrial fibrillation with controlled rate for now. Acute decompensated CHF, preserved LV function Bilateral lower extremity edema. COPD, currently inactive. Acute kidney injury, creatinine is improved Elevated troponins, rule out NSTEMI. History of hypertension. History of hyperlipidemia. History of atrial fibrillation, status post cardiac ablation. Bilateral pleural effusions with history of previous bilateral thoracentesis. History of septic arthritis. Cellulitis of the lower extremity, clinically suspected and the patient is currently on IV cefazolin Plan: The patient is currently on 4 L of oxygen by nasal cannula, wean FiO2 as tole rated Patient is status post bilateral thoracentesis Continue Lasix 40 mg IV every 12 hours Monitor electrolytes The pleural fluid will be sent for cultures and the chemistry is more suggestive of transudate She agrees to DNR, as he would not want to be on life support. I believe that to be appropriate, given his age of 83, and his worsening dementia. Hospice consultation has been obtained Tolerating diet Anticoagulation with Eliquis we will continue to follow.
--- NOTE | 2023-11-03 15:02 | P.PN ---
Subjective Progress Note Date: 11/03/23 Principal diagnosis: Reason for follow-up is right lower extremity cellulitis and question of pneumonia Patient is a 83-year-old male with a past medical history significant for diabetes mellitus hypertension hyperlipidemia COPD atrial fibrillation pneumonia prostate disorder patient has been brought into the hospital for evaluation of increasing shortness of breath and right leg swelling with concern for right lower extremity cellulitis and possible pneumonia. On today's evaluation that is 11/03/2023,the patient denies any fever or any chills, patient is breathing comfortably on 4 L current oxygen, the patient denies chest pain shortness of breath and no significant cough, patient denies abdominal pain, no nausea vomiting or diarrhea. No new lab has been obtained today pleural fluid cultures are pending Objective - Vital Signs Vital signs: Vital Signs Temp 95.8 F L 11/03/23 09:19 Pulse 64 11/03/23 11:41 Resp 20 11/03/23 11:34 BP 94/58 11/03/23 11:34 Pulse Ox 93 L 11/03/23 11:34 FiO2 Intake & Output 11/02/23 11/03/23 11/03/23 18:59 06:59 18:59 Intake Total 286 418 Output Total 2552 452 900 Balance -2266 -452 -482 Weight 68 kg Intake: IV 250 .9@20 240 Invasive Line 3 10 Intake, IV Titration 50 50 Amount ceFAZolin 2 gm In Sodium 50 50 Chloride 0.9% 50 ml @ 100 mls/hr IVPB Q8H [facility] Rx#: [id number] Oral 236 118 Output: Urine 850 450 900 Stool 2 2 Other 1700 Other: Voiding Method Diaper Diaper Diaper Incontinent Incontinent Incontinent External Catheter External Catheter External Catheter # Voids 1 # Bowel Movements 1 1 - Exam GENERAL DESCRIPTION: An elderly male lying in bed in no distress RESPIRATORY SYSTEM: Unlabored breathing , decreased breath sounds at bases HEART: S1 S2 regular rate and rhythm , ABDOMEN: Soft , no tenderness EXTREMITIES: Right lower extremity slight erythema which is warm to touch - Labs CBC & Chem 7: 10/31/23 07:34 11/02/23 07:01 Labs: Abnormal Lab Results - Last 24 Hours (Table) 11/02/23 11/02/23 11/02/23 Range/Units 11:00 16:34 19:55 POC Glucose (mg/dL) 192 H 263 H (70-110) mg/dL Fluid Appearance Bloody A (Clear) 11/03/23 11/03/23 11/03/23 Range/Units 02:07 05:55 11:34 POC Glucose (mg/dL) 208 H 172 H 219 H (70-110) mg/dL Fluid Appearance (Clear) Microbiology - Last 24 Hours (Table) 11/02/23 11:00 Gram Stain - Preliminary Pleural Fluid Assessment and Plan (1) Abnormal chest x-ray Current Visit: Yes Status: Acute Code(s): R93.89 - ABNORMAL FINDINGS ON DX IMAGING OF OTH BODY STRUCTURES SNOMED Code(s): 547699006 (2) Leukocytosis Current Visit: No Status: Acute Code(s): D72.829 - ELEVATED WHITE BLOOD CELL COUNT, UNSPECIFIED SNOMED Code(s): 068508195 (3) Cellulitis of leg, right Current Visit: Yes Status: Acute Code(s): L03.115 - CELLULITIS OF RIGHT LOWER LIMB SNOMED Code(s): 68222788802428416 Plan: 1patient presented to hospital with increasing shortness of breath lower extremity swelling questionable of fluid overload CHF as the patient did have a bilateral effusion swelling to the lower extremity which is red and warm to touch 2-patient leukocytosis possibly steroid related with Solu-Medrol white count did come down to 12,000, no CBC was done today 3 patient did have a component of right leg cellulitis, for which the patient is covered with cefazolin will transition to oral Keflex on discharge. 4the patient did have a bilateral thoracocentesis done fluid white count is not significantly elevated more likely transudative with the cultures currently pending at the bedside questions answered Dictation was produced using [employer] dictation software. please excuse any grammatical, word or spelling errors. Time with Patient: Less than 30
[2023-11-03 15:03] VITALS: BMI 20.3
[2023-11-03 16:09] LABS: Glucose,Whole Blood 245 mg/dL (70-110)
[2023-11-03 20:56] LABS: Glucose,Whole Blood 342 mg/dL (70-110)
[2023-11-04 05:54] LABS: Glucose,Whole Blood 181 mg/dL (70-110)
[2023-11-04 11:35] LABS: Glucose,Whole Blood 211 mg/dL (70-110)
--- NOTE | 2023-11-04 12:56 | P.PN ---
Subjective Progress Note Date: 11/04/23 Patient is an 83-year-old white male with past medical history significant for COPD, hypertension, hyperlipidemia, atrial fibrillation status post cardiac ablation, heart failure, pleural effusion with previous thoracentesis. Also, has dementia and is technically a poor historian. Presented to the emergency room yesterday afternoon complaining primarily of shortness of breath and lower extremity swelling. Reportedly has been treated outpatient with multiple rounds of antibiotics for pneumonia. Patient is currently being evaluated the emergency department. Not a very good historian. No acute respiratory distress. Currently on 2 L/min nasal cannula, SpO2 99%. He does have a congested cough. Currently afebrile. He does have significant bilateral lower extremity swelling and his right foot/ankle is erythemic and warm. Venous Doppler of the right lower extremity negative for DVT. Chest x-ray showing pulmonary vascular congestion, small to moderate bilateral pleural effusions with associated atelectasis versus infiltrate. NT proBNP elevated at 2850. CBC: WBC count 12.2, hemoglobin 14.2, hematocrit 43.6, platelets 276. CMP: Sodium 136, potassium 3.7, chloride 102, serum bicarb 28, BUN 48, creatinine 1.49, glucose 220. Lactic peaked at 3 and down to 2.8. Magnesium 1.4. LFTs unremarkable. Troponin 0.038. EKG showing normal sinus rhythm without any obvious acute ischemic changes. Hemodynamically, the patient is stable at this time. Progress note dated October 27, 2023. 83-year-old male well-known to me. He has a history of COPD, hypertension, hyperlipidemia, atrial fibrillation, heart failure, and previous pleural effusion. The patient is also demented. The patient was brought into the emergency department, with complaints of shortness of breath, and lower ext remity edema. The patient was thought to have either heart failure, and or pneumonia. The patient's procalcitonin level was 0.12. N-terminal proBNP is 2850. He is on 2 L of oxygen. Saturations are 95%. Zosyn is discontinued. He is getting saline at 10 cc an hour. A glucose of 262. Progress note dated October 28, 2023. 83-year-old male seen in room 358. He is doing better today. He is on 3 L. His is in the room. He is not receiving any IV fluids. Dopplers of the upper extremities were negative bilaterally. The patient was seen by the infectious disease doctor, and even though the procalcitonin level was normal, he started the patient on Ancef for presumed cellulitis of the lower extremity. I believe that is unnecessary. The patient is better from the pulmonary standpoint. Current labs include a white count 18.7, hemoglobin 13.6, hematocrit 41.8, platelet count 296,000. Sodium 137, potassium 3.6, chlorides 100, CO2 31, BUN 39, creatinine 1.35. Calcium is 10.1. Procalcitonin level was 0.12. He tested negative for coronavirus, and Legionella. Progress note dated October 29, 2023. 83-year-old male seen today in room 358. The patient continues on oxygen, at 3 L. He is getting saline at 10 cc an hour. He looks reasonably stable. He does have a congested wet cough. His , who is usually in the room, was not there today. No new labs today other than a glucose of 116. Progress note dated October 30, 2023. 83-year-old male seen today in room 358. The patient's is in the room, and she is very tearful. Apparently last night, the patient had an episode of atrial fibrillation with RVR. The patient was seen by the housestaff. Currently he is on 4 L of oxygen. He is also getting Cardizem at 5 mg an hour. The EKG showed evidence of atrial fibrillation with RVR. Today we had a long talk with the patient's , about CODE STATUS. The patient is now a no code. He would not want to be on life support. Current labs include a white count 24.6, hemoglobin 15.3, hematocrit 48.7, and a platelet count is normal. Sodium 139, potassium 4, chlorides 101, CO2 31, BUN 47, and creatinine 1.37. Glucose is 113. Calcium is 10.4. Chest x-ray is consistent with fluid overload. It was done on October 28. On today's evaluation of 11/03/2023, the patient remains on oxygen 4 L/min nasal cannula. The patient is known to have congestion heart failure, COPD, paroxysmal atrial fibrillation, hypertension hyperlipidemia. The patient is sandie ng seen for shortness of breath. Noted the patient was hospitalized earlier to [facility] in [facility] for shortness of breath and pneumonia. He did encounter A-fib RVR, placed on a Cardizem drip and currently is rate is under better control. Hemodynamically stable and the patient is afebrile. The patient remains on Toprol 50 mg p.o. twice a day. The patient is also on Symbicort and DuoNeb nebulized treatments [id number]. Rest of the home medications have been resumed. Remains on insulin 10 units at bedtime and 2 units with meals and a sliding scale coverage. In terms of labs, the white circles of 12.9 with a heme of 13.3, BUN is 46 with a creatinine of 1.28 and a sodium levels of 139. His creatinine is gradually improved. Noted his cardiac catheterization from May 2021 showed mild CAD with 20 to 30% proximal LAD stenosis. The patient has a preserved LV function. Most recent chest x-ray from 10/29/2023 showed evidence of fluid overload with small to moderate-sized right-sided effusion and left-sided pleural effusion. Noted the patient has undergone a previous thoracentesis back in 2022 and the fluid itself was a transudate. For now, he is on IV Lasix 40 mg every 12 hours. He is in a negative fluid balance for now. On today's evaluation of 11/01/2023, I am see the patient for a follow-up. The patient is calm and comfortable on room air oxygen. Denies having any significant shortness of breath. Denies having any chest pain. Continues to be in a negative fluid balance as the patient is being diuresed with Lasix and the patient is currently on 40 mg IV Lasix every 12 hours and the patient is also on Aldactone 25 mg p.o. daily. Remains on metoprolol 50 mg p.o. twice a day. Remains on DuoNeb nebulized treatments [id number] and Symbicort as maintenance. No altered mentation. No chest pain. No other complaints otherwise. Sodium is at 134 with a potassium level of 4.4, BUN is 42 with a creatinine of 1.01 and the patient has no specific complaints. Noted, ultrasound of the chest was done this morning and ultrasound marking showed a large right- sided pleural effusion measuring 19 cm in size in addition to a moderate-sized left-sided pleural effusion measuring 9.7 cm in size. I performed a bedside thoracentesis on this patient and a total of 2 L of fluid was aspirated without any complications. Follow-up chest x-ray following the procedure showed interval decrease in the right-sided pleural effusion with a small residual right-sided pleural effusion without any pneumothorax. There was still a small to moderate-sized left-sided pleural effusion present. The patient is still off anticoagulation in anticipation for another procedure for left-sided thoracentesis tomorrow.A swallow evaluation was also done today for dysphagia On today's evaluation of 11/02/2023, the patient is being seen for a follow-up. The patient underwent a thoracentesis yesterday involving the right lung and a total of 2 L of pleural fluid was removed. Patient has no significant respiratory distress. Oxygenation remained stable. I did like discussion with the who opted to drain the left chest. Based on that, a left-sided thoracentesis was also done today and a total of 1.7 L of pleural fluid was also aspirated. No complications. The postprocedure chest x-ray showed no evidence of any pneumothorax and there is interval reduction amount of pleural effusion on the left without any sizable pneumothorax. BUN 39 with a creatinine of 0.9 and sodium levels at 136 and a potassium level is at 4.5 and a serum bicarb is c urrently at 37. Afebrile. Hemodynamically stable. On today's evaluation of 11/03/2023, the patient's respiratory status is stable. No significant respite difficulties. The patient had undergone bilateral thoracentesis. The patient is also on Lasix 40 mg IV every 12 hours. Anticoagulation was resumed yesterday. Meanwhile, the patient has working with physical therapy. Hospice consultation has been obtained. Serum bicarb is at 37. BUN is 39 with a creatinine of 0.9 and a sodium levels at 136. At this point in time, the patient on 40 Suboxone by nasal cannula with a pulse ox of 93%. No other significant events overnight. He is a DNR/DNI. On 11/04/2023, seen the patient for a follow-up. Doing well. No specific complaints. Resting In bed. Tolerating diet. Negative fluid balance as the patient remains on IV Lasix. Labs from today are still pending. Otherwise, the night was uneventful. The patient remains on 40 Suboxone by nasal cannula with a pulse ox of 95%. The patient is currently on the medical floor. He is post bilateral thoracentesis. His CODE STATUS is DNR/DNI. Objective - Vital Signs Vital signs: Vital Signs Temp 97.6 F 11/04/23 00:00 Pulse 76 11/04/23 09:11 Resp 18 11/04/23 09:11 BP 97/59 11/04/23 09:11 Pulse Ox 98 11/04/23 09:11 FiO2 Intake & Output 11/03/23 11/04/23 11/04/23 18:59 06:59 18:59 Intake Total 418 118 Output Total 900 550 300 Balance -482 -550 -182 Weight 68 kg 53.5 kg Intake: IV 250 .9@20 240 Invasive Line 3 10 Intake, IV Titration 50 Amount ceFAZolin 2 gm In Sodium 50 Chloride 0.9% 50 ml @ 100 mls/hr IVPB Q8H [facility] Rx#: [id number] Oral 118 118 Output: Urine 900 550 300 Other: Voiding Method Diaper Diaper Diaper Incontinent Incontinent Incontinent External Catheter External Catheter External Catheter # Bowel Movements 1 1 - Exam No acute distress, lethargic, currently on 4 L nasal cannula. Saturations are 93 %. HEENT examination is grossly unremarkable. Neck supple. Full range of motion. No adenopathy thyromegaly or neck vein distention. Cardiovascular examination reveals regular rhythm rate. S1-S2 normal. No S3 or S4. No discernible murmur noted. Heart sounds are distant. Lungs reveal scattered rhonchi and crackles. Breath sounds equal. No wheezes. Breath sounds diminished throughout. There is improved aeration in both lungs following bilateral thoracentesis. Abdomen soft bowel sounds are heard. No masses or tenderness. Extremities are intact. No cyanosis or clubbing. There is 1+ pitting edema. Mild erythema of the lower extremities. Skin is without rash or lesion. Neurologic examination is brief but nonfocal. - Labs CBC & Chem 7: 10/31/23 07:34 11/02/23 07:01 Labs: Abnormal Lab Results - Last 24 Hours (Table) 11/03/23 11/03/23 11/03/23 Range/Units 11:34 16:07 20:50 POC Glucose (mg/dL) 219 H 245 H 342 H (70-110) mg/dL 09/07/24 Range/Units 05:48 POC Glucose (mg/dL) 181 H (70-110) mg/dL Microbiology - Last 24 Hours (Table) 11/02/23 11:00 Gram Stain - Preliminary Pleural Fluid Body Fluid Culture - Preliminary Assessment and Plan Plan: Acute hypoxemic respiratory failure, likely related to CHF, doubt pneumonia. The patient has bilateral pleural effusion right more than left and the patient is currently on oxygen 4 L/min nasal cannula. Left-sided thoracentesis was done today today on 11/02/2023 with removal of 1.7 L of pleural fluid. Right-sided thoracentesis was done on 11/01/2023 with a total of 2 L of fluid removed. Respiratory status is stable for now. The patient remains clinically stable on 4 L of O2 nasal cannula. No signs of any significant respiratory distress. Previous history of bilateral pleural effusion requiring thoracentesis evacuation of 1.8 L of pleural fluid from the right back in 2022 and the fluid was a transudate. I performed another thoracentesis of the right lung on 11/01/2023 with removal of 2 L of pleural fluid from the right hemithorax without any major complications. Chest x-ray shows a persistent moderate-sized left- sided pleural effusion. Thoracentesis was done on 11/02/2023 on the left evacuating around 1700 cc of pleural fluid. No complications. Paroxysmal atrial fibrillation with controlled rate for now. Acute decompensated CHF, preserved LV function Bilateral lower extremity edema. COPD, currently inactive. Acute kidney injury, creatinine is improved Elevated troponins, rule out NSTEMI. History of hypertension. History of hyperlipidemia. History of atrial fibrillation, status post cardiac ablation. Bilateral pleural effusions with history of previous bilateral thoracentesis. History of septic arthritis. Cellulitis of the lower extremity, clinically suspected and the patient is currently on IV cefazolin Plan: The patient is currently on 4 L of oxygen by nasal cannula, wean FiO2 as tolerated Patient is status post bilateral thoracentesis Continue Lasix and switch the patient to oral Lasix 40 mg p.o. twice a day Monitor electrolytes The pleural fluid will be sent for cultures and the chemistry is more suggestive of transudate She agrees to DNR, as he would not want to be on life support. I believe that to be appropriate, given his age of 83, and his worsening dementia. Hospice consultation has been obtained Tolerating diet Anticoagulation with Eliquis we will continue to follow.
--- NOTE | 2023-11-04 15:00 | P.PN ---
Subjective Progress Note Date: 11/04/23 Principal diagnosis: Reason for follow-up is right lower extremity cellulitis and question of pneumonia Patient is a 83-year-old male with a past medical history significant for diabetes mellitus hypertension hyperlipidemia COPD atrial fibrillation pneumonia prostate disorder patient has been brought into the hospital for evaluation of increasing shortness of breath and right leg swelling with concern for right lower extremity cellulitis and possible pneumonia. On today's evaluation that is 11/04/2023,the patient remains to be afebrile, patient is on 4 L nasal cannula supplemental oxygen and denies any shortness of breath no chest pain or cough.Patient denies having any nausea or vomiting, no abdominal pain and no diarrhea has been reported. No new lab has been obtained today Objective - Vital Signs Vital signs: Vital Signs Temp 97.6 F 11/04/23 00:00 Pulse 68 11/04/23 12:21 Resp 18 11/04/23 12:21 BP 88/52 11/04/23 12:21 Pulse Ox 95 11/04/23 12:21 FiO2 Intake & Output 11/03/23 11/04/23 11/04/23 18:59 06:59 18:59 Intake Total 418 128 Output Total 900 550 300 Balance -482 -550 -172 Weight 68 kg 53.5 kg Intake: IV 250 10 .9@20 240 Invasive Line 3 10 Invasive Line 4 10 Intake, IV Titration 50 Amount ceFAZolin 2 gm In Sodium 50 Chloride 0.9% 50 ml @ 100 mls/hr IVPB Q8H [facility] Rx#: [id number] Oral 118 118 Output: Urine 900 550 300 Other: Voiding Method Diaper Diaper Diaper Incontinent Incontinent Incontinent External Catheter External Catheter External Catheter # Bowel Movements 1 1 - Exam GENERAL DESCRIPTION: An elderly male lying in bed in no distress RESPIRATORY SYSTEM: Unlabored breathing , decreased breath sounds at bases HEART: S1 S2 regular rate and rhythm , ABDOMEN: Soft , no tenderness EXTREMITIES: Right lower extremity slight erythema which is warm to touch - Labs CBC & Chem 7: 10/31/23 07:34 11/02/23 07:01 Labs: Abnormal Lab Results - Last 24 Hours (Table) 11/03/23 11/03/23 11/04/23 Range/Units 16:07 20:50 05:48 POC Glucose (mg/dL) 245 H 342 H 181 H (70-110) mg/dL 11/04/23 Range/Units 11:33 POC Glucose (mg/dL) 211 H (70-110) mg/dL Microbiology - Last 24 Hours (Table) 11/02/23 11:00 Gram Stain - Preliminary Pleural Fluid Body Fluid Culture - Preliminary Assessment and Plan (1) Abnormal chest x-ray Current Visit: Yes Status: Acute Code(s): R93.89 - ABNORMAL FINDINGS ON DX IMAGING OF OTH BODY STRUCTURES SNOMED Code(s): 550330435 (2) Leukocytosis Current Visit: No Status: Acute Code(s): D72.829 - ELEVATED WHITE BLOOD CELL COUNT, UNSPECIFIED SNOMED Code(s): 080650421 (3) Cellulitis of leg, right Current Visit: Yes Status: Acute Code(s): L03.115 - CELLULITIS OF RIGHT LO WER LIMB SNOMED Code(s): 53912980499703438 Plan: 1patient presented to hospital with increasing shortness of breath lower extremity swelling questionable of fluid overload CHF as the patient did have a bilateral effusion swelling to the lower extremity which is red and warm to touch 2-patient leukocytosis possibly steroid related with Solu-Medrol white count did come down to 12,000, no CBC was done today 3-the patient did have a bilateral thoracocentesis done fluid white count is not significantly elevated more likely transudative cultures so far negative 4-patient did have a component of right leg cellulitis, for which the patient is covered with cefazolin will transition to oral Keflex on discharge. Dictation was produced using [employer] dictation software. please excuse any grammatical, word or spelling errors. Time with Patient: Less than 30
[2023-11-04] MEDS: FUROSEMIDE 40 MG TAB PO SCH (15:53)
[2023-11-04 16:47] LABS: Glucose,Whole Blood 239 mg/dL (70-110)
--- NOTE | 2023-11-04 19:49 | P.PN ---
Subjective Progress Note Date: 11/04/23 HISTORY OF PRESENT ILLNESS: Patient is a pleasant 83-year-old male with significant past medical history of COPD, paroxysmal atrial fibrillation, hypertension, hyperlipidemia, congestive heart failure, and lymphedema who was admitted with complaints of right ankle cellulitis, shortness of breath, cough. He does follow with Dr. Welsh in the office. Over the past 3 weeks he has had multiple admissions here at [facility] however, system was down and reports are unavailable currently. He was also admitted at [facility] with shortness of breath and pneumonia. Cardiology was consulted for episode of A-fib with RVR overnight. He reports that last night he was feeling more short of breath and was found to be in A-fib with RVR, a team was called. He was started on a Cardizem drip and increased on his oxygen. He is back in the normal sinus rhythm now. Prior to a month ago he had been doing well and had been at home getting around with a cane. He denies any chest pain or pressure. Lower extremity swelling has improved. He did have a prior heart catheterization 05/2021 which showed mild CAD with 20-30% proximal LAD stenosis. 10/31/2023 Patient examined this morning at the bedside. Patient currently denies chest pain or pressure. Patient currently denies shortness of breath. Telemetry reveals atrial fibrillation with heart rate around 100. Patient has been having runs of nonsustained ventricular tachycardia. Echocardiogram completed in the office in July 2023 revealed ejection fraction 55%, mild aortic regurgitation, mild tricuspid regurgitation, severely increased pulmonary artery systolic pressure with RVSP 70 mmHg. Patient did have a recent echocardiogram performed here. Spoke with wet process technician who stated LV function was normal, no wall motion abnormalities, and pleural effusion was noted. 11/01/2023 Patient examined this morning the bedside. Patient currently denies chest pain or pressure. He reports shortness of breath. He remains on IV Lasix. 11/02/2023 Patient examined this morning the bedside. Patient continues to report shortness of breath. He underwent right-sided thoracentesis yesterday with 2 L of fluid. Patient's spouse states that patient is to undergo left-sided thoracentesis today. His Eliquis remains on hold. Telemetry reveals sinus mechanism with PACs with bursts of atrial fibrillation 11/03/2023 Patient examined this morning. Patient underwent left-sided thoracentesis yesterday with removal of 1700 cc. His Eliquis has been resumed. Patient currently denies chest pain or pressure. Telemetry reveals sinus mechanism. He remains on IV Lasix. 11/04/2023 Patient seen and examined at bedside this a.m. Patient is coming along well. G ood urine output, will transition his IV diuretics to p.o. PHYSICAL EXAM: VITAL SIGNS: Reviewed. GENERAL: Well-developed in no acute distress. NECK: Supple. No JVD or thyromegaly LUNGS: Respirations even and unlabored. Lungs essentially clear to auscultation bilaterally. HEART: Regular rate and rhythm. S1 and S2 heard. EXTREMITIES: Normal range of motion. No clubbing or cyanosis. Peripheral pulses intact. No lower extremity edema ASSESSMENT: Paroxysmal atrial fibrillation Acute on chronic congestive heart failure with preserved EF Bilateral pleural effusions status post right sided thoracentesis with removal of 2 L, 11/01/2023 Status post left-sided thoracentesis with removal of 1.7 L, 11/02/2023 Nonsustained ventricular tachycardia Recent hospitalization at [place] for pneumonia Hypertension Hyperlipidemia COPD History of lymphedema PLAN: Continue current dose of metoprolol Avoid amiodarone Change to p.o. Lasix 40 mg every 12 hours. Daily weights, accurate intake and output, and monitoring of kidney function Continue anticoagulation with Eliquis At this time patient is stable from cardiovascular standpoint. Cardiology team will sign off. Please reconsult us in case of any question. Objective - Vital Signs Vital signs: Vital Signs Temp 97.6 F 11/04/23 00:00 Pulse 68 11/04/23 16:05 Resp 18 11/04/23 15:46 BP 96/61 11/04/23 15:46 Pulse Ox 98 11/04/23 15:46 FiO2 Intake & Output 11/04/23 11/04/23 11/05/23 06:59 18:59 06:59 Intake Total 568 Output Total 550 600 Balance -550 -32 Weight 53.5 kg Intake: IV 250 .9@20 240 Invasive Line 4 10 Oral 318 Output: Urine 550 600 Other: Voiding Method Diaper Diaper Incontinent Incontinent External Catheter External Catheter # Voids 1 # Bowel Movements 1 - Labs CBC & Chem 7: 10/31/23 07:34 09/05/24 07:01 Labs: Abnormal Lab Results - Last 24 Hours (Table) 11/03/23 11/04/23 11/04/23 Range/Units 20:50 05:48 11:33 POC Glucose (mg/dL) 342 H 181 H 211 H (70-110) mg/dL 11/04/23 Range/Units 16:44 POC Glucose (mg/dL) 239 H (70-110) mg/dL Microbiology - Last 24 Hours (Table) 11/02/23 11:00 Gram Stain - Preliminary Pleural Fluid Body Fluid Culture - Preliminary
[2023-11-04 20:43] LABS: Glucose,Whole Blood 356 mg/dL (70-110)
[2023-11-04] MEDS: BUDESONIDE 1 MG/2 ML NEBU INHALATION SCH (20:47)
[2023-11-05 06:13] LABS: Glucose,Whole Blood 133 mg/dL (70-110)
[2023-11-05 08:36] VITALS: RESP 18
[2023-11-05 11:16] LABS: Glucose,Whole Blood 275 mg/dL (70-110)
--- NOTE | 2023-11-05 11:31 | P.PN ---
Subjective Progress Note Date: 11/05/23 Patient is an 83-year-old white male with past medical history significant for COPD, hypertension, hyperlipidemia, atrial fibrillation status post cardiac ablation, heart failure, pleural effusion with previous thoracentesis. Also, has dementia and is technically a poor historian. Presented to the emergency room yesterday afternoon complaining primarily of shortness of breath and lower extremity swelling. Reportedly has been treated outpatient with multiple rounds of antibiotics for pneumonia. Patient is currently being evaluated the emergency department. Not a very good historian. No acute respiratory distress. Currently on 2 L/min nasal cannula, SpO2 99%. He does have a congested cough. Currently afebrile. He does have significant bilateral lower extremity swelling and his right foot/ankle is erythemic and warm. Venous Doppler of the right lower extremity negative for DVT. Chest x-ray showing pulmonary vascular congestion, small to moderate bilateral pleural effusions with associated atelectasis versus infiltrate. NT proBNP elevated at 2850. CBC: WBC count 12.2, hemoglobin 14.2, hematocrit 43.6, platelets 276. CMP: Sodium 136, potassium 3.7, chloride 102, serum bicarb 28, BUN 48, creatinine 1.49, glucose 220. Lactic peaked at 3 and down to 2.8. Magnesium 1.4. LFTs unremarkable. Troponin 0.038. EKG showing normal sinus rhythm without any obvious acute ischemic changes. Hemodynamically, the patient is stable at this time. Progress note dated October 27, 2023. 83-year-old male well-known to me. He has a history of COPD, hypertension, hyperlipidemia, atrial fibrillation, heart failure, and previous pleural effusion. The patient is also demented. The patient was brought into the emergency department, with complaints of shortness of breath, and lower ext remity edema. The patient was thought to have either heart failure, and or pneumonia. The patient's procalcitonin level was 0.12. N-terminal proBNP is 2850. He is on 2 L of oxygen. Saturations are 95%. Zosyn is discontinued. He is getting saline at 10 cc an hour. A glucose of 262. Progress note dated October 28, 2023. 83-year-old male seen in room 358. He is doing better today. He is on 3 L. His is in the room. He is not receiving any IV fluids. Dopplers of the upper extremities were negative bilaterally. The patient was seen by the infectious disease doctor, and even though the procalcitonin level was normal, he started the patient on Ancef for presumed cellulitis of the lower extremity. I believe that is unnecessary. The patient is better from the pulmonary standpoint. Current labs include a white count 18.7, hemoglobin 13.6, hematocrit 41.8, platelet count 296,000. Sodium 137, potassium 3.6, chlorides 100, CO2 31, BUN 39, creatinine 1.35. Calcium is 10.1. Procalcitonin level was 0.12. He tested negative for coronavirus, and Legionella. Progress note dated October 29, 2023. 83-year-old male seen today in room 358. The patient continues on oxygen, at 3 L. He is getting saline at 10 cc an hour. He looks reasonably stable. He does have a congested wet cough. His , who is usually in the room, was not there today. No new labs today other than a glucose of 116. Progress note dated October 30, 2023. 83-year-old male seen today in room 358. The patient's is in the room, and she is very tearful. Apparently last night, the patient had an episode of atrial fibrillation with RVR. The patient was seen by the housestaff. Currently he is on 4 L of oxygen. He is also getting Cardizem at 5 mg an hour. The EKG showed evidence of atrial fibrillation with RVR. Today we had a long talk with the patient's , about CODE STATUS. The patient is now a no code. He would not want to be on life support. Current labs include a white count 24.6, hemoglobin 15.3, hematocrit 48.7, and a platelet count is normal. Sodium 139, potassium 4, chlorides 101, CO2 31, BUN 47, and creatinine 1.37. Glucose is 113. Calcium is 10.4. Chest x-ray is consistent with fluid overload. It was done on October 28. On today's evaluation of 11/03/2023, the patient remains on oxygen 4 L/min nasal cannula. The patient is known to have congestion heart failure, COPD, paroxysmal atrial fibrillation, hypertension hyperlipidemia. The patient is sandie ng seen for shortness of breath. Noted the patient was hospitalized earlier to [facility] in [facility] for shortness of breath and pneumonia. He did encounter A-fib RVR, placed on a Cardizem drip and currently is rate is under better control. Hemodynamically stable and the patient is afebrile. The patient remains on Toprol 50 mg p.o. twice a day. The patient is also on Symbicort and DuoNeb nebulized treatments [id number]. Rest of the home medications have been resumed. Remains on insulin 10 units at bedtime and 2 units with meals and a sliding scale coverage. In terms of labs, the white circles of 12.9 with a heme of 13.3, BUN is 46 with a creatinine of 1.28 and a sodium levels of 139. His creatinine is gradually improved. Noted his cardiac catheterization from May 2021 showed mild CAD with 20 to 30% proximal LAD stenosis. The patient has a preserved LV function. Most recent chest x-ray from 10/29/2023 showed evidence of fluid overload with small to moderate-sized right-sided effusion and left-sided pleural effusion. Noted the patient has undergone a previous thoracentesis back in 2022 and the fluid itself was a transudate. For now, he is on IV Lasix 40 mg every 12 hours. He is in a negative fluid balance for now. On today's evaluation of 11/01/2023, I am see the patient for a follow-up. The patient is calm and comfortable on room air oxygen. Denies having any significant shortness of breath. Denies having any chest pain. Continues to be in a negative fluid balance as the patient is being diuresed with Lasix and the patient is currently on 40 mg IV Lasix every 12 hours and the patient is also on Aldactone 25 mg p.o. daily. Remains on metoprolol 50 mg p.o. twice a day. Remains on DuoNeb nebulized treatments [id number] and Symbicort as maintenance. No altered mentation. No chest pain. No other complaints otherwise. Sodium is at 134 with a potassium level of 4.4, BUN is 42 with a creatinine of 1.01 and the patient has no specific complaints. Noted, ultrasound of the chest was done this morning and ultrasound marking showed a large right- sided pleural effusion measuring 19 cm in size in addition to a moderate-sized left-sided pleural effusion measuring 9.7 cm in size. I performed a bedside thoracentesis on this patient and a total of 2 L of fluid was aspirated without any complications. Follow-up chest x-ray following the procedure showed interval decrease in the right-sided pleural effusion with a small residual right-sided pleural effusion without any pneumothorax. There was still a small to moderate-sized left-sided pleural effusion present. The patient is still off anticoagulation in anticipation for another procedure for left-sided thoracentesis tomorrow.A swallow evaluation was also done today for dysphagia On today's evaluation of 11/02/2023, the patient is being seen for a follow-up. The patient underwent a thoracentesis yesterday involving the right lung and a total of 2 L of pleural fluid was removed. Patient has no significant respiratory distress. Oxygenation remained stable. I did like discussion with the who opted to drain the left chest. Based on that, a left-sided thoracentesis was also done today and a total of 1.7 L of pleural fluid was also aspirated. No complications. The postprocedure chest x-ray showed no evidence of any pneumothorax and there is interval reduction amount of pleural effusion on the left without any sizable pneumothorax. BUN 39 with a creatinine of 0.9 and sodium levels at 136 and a potassium level is at 4.5 and a serum bicarb is c urrently at 37. Afebrile. Hemodynamically stable. On today's evaluation of 11/03/2023, the patient's respiratory status is stable. No significant respite difficulties. The patient had undergone bilateral thoracentesis. The patient is also on Lasix 40 mg IV every 12 hours. Anticoagulation was resumed yesterday. Meanwhile, the patient has working with physical therapy. Hospice consultation has been obtained. Serum bicarb is at 37. BUN is 39 with a creatinine of 0.9 and a sodium levels at 136. At this point in time, the patient on 40 Suboxone by nasal cannula with a pulse ox of 93%. No other significant events overnight. He is a DNR/DNI. On 11/04/2023, seen the patient for a follow-up. Doing well. No specific complaints. Resting In bed. Tolerating diet. Negative fluid balance as the patient remains on IV Lasix. Labs from today are still pending. Otherwise, the night was uneventful. The patient remains on 40 Suboxone by nasal cannula with a pulse ox of 95%. The patient is currently on the medical floor. He is post bilateral thoracentesis. His CODE STATUS is DNR/DNI. 11/05/2023, the patient is resting comfortably in bed. No respiratory distress. The patient is currently on 3 L of oxygen by nasal cannula with a pulse ox of 94%. New labs are available from today. The patient has no specific complaints. He is quite debilitated due to various comorbidities. He is status post bilateral thoracentesis which further optimize his respiratory status. Rest of the medications are essentially unchanged and the patient is still on anticoagulation with Eliquis. Hospice has been consulted. He is a DNR/DNI CODE STATUS. Objective - Vital Signs Vital signs: Vital Signs Temp 97.6 F 11/05/23 04:00 Pulse 75 11/05/23 08:35 Resp 18 11/05/23 08:36 BP 94/51 11/05/23 08:35 Pulse Ox 94 L 11/05/23 08:36 FiO2 Intake & Output 11/04/23 11/05/23 11/05/23 18:59 06:59 18:59 Intake Total 568 20 10 Output Total 600 Balance -32 20 10 Weight 53 kg Intake: IV 250 20 10 .9@20 240 Invasive Line 4 10 20 10 Oral 318 Output: Urine 600 Other: Voiding Method Diaper Diaper Diaper Incontinent Incontinent Incontinent External Catheter External Catheter External Catheter # Voids 1 # Bowel Movements 1 1 - Exam No acute distress, lethargic, currently on 4 L nasal cannula. Saturations are 93 %. HEENT examination is grossly unremarkable. Neck supple. Full range of motion. No adenopathy thyromegaly or neck vein distention. Cardiovascular examination reveals regular rhythm rate. S1-S2 normal. No S3 or S4. No discernible murmur noted. Heart sounds are distant. Lungs reveal scattered rhonchi and crackles. Breath sounds equal. No wheezes. Breath sounds diminished throughout. There is improved aeration in both lungs following bilateral thoracentesis. Abdomen soft bowel sounds are heard. No masses or tenderness. Extremities are intact. No cyanosis or clubbing. There is 1+ pitting edema. Mild erythema of the lower extremities. Skin is without rash or lesion. Neurologic examination is brief but nonfocal. - Labs CBC & Chem 7: 10/31/23 07:34 11/02/23 07:01 Labs: Abnormal Lab Results - Last 24 Hours (Table) 11/04/23 11/04/23 11/04/23 Range/Units 11:33 16:44 20:32 POC Glucose (mg/dL) 211 H 239 H 356 H (70-110) mg/dL 11/05/23 Range/Units 06:02 POC Glucose (mg/dL) 133 H (70-110) mg/dL Microbiology - Last 24 Hours (Table) 11/02/23 11:00 Gram Stain - Preliminary Pleural Fluid Body Fluid Culture - Preliminary Assessment and Plan Plan: Acute hypoxemic respiratory failure, likely related to CHF, doubt pneumonia. The patient has bilateral pleural effusion right more than left and the patient is currently on oxygen 4 L/min nasal cannula. Left-sided thoracentesis was done today today on 11/02/2023 with removal of 1.7 L of pleural fluid. Right-sided thoracentesis was done on 11/01/2023 with a total of 2 L of fluid removed. Respiratory status is stable for now. The patient remains clinically stable on 4 L of O2 nasal cannula. No signs of any significant respiratory distress. Previous history of bilateral pleural effusion requiring thoracentesis liz cuation of 1.8 L of pleural fluid from the right back in 2022 and the fluid was a transudate. I performed another thoracentesis of the right lung on 11/01/2023 with removal of 2 L of pleural fluid from the right hemithorax without any major complications. Chest x-ray shows a persistent moderate-sized left-sided pleural effusion. Thoracentesis was done on 11/02/2023 on the left evacuating around 1700 cc of pleural fluid. No complications. Overall respiratory status remains stable on today's evaluation of 11/05/2023. Paroxysmal atrial fibrillation with controlled rate for now. Acute decompensated CHF, preserved LV function Bilateral lower extremity edema. COPD, currently inactive. Acute kidney injury, creatinine is improved Elevated troponins, rule out NSTEMI. History of hypertension. History of hyperlipidemia. History of atrial fibrillation, status post cardiac ablation. Bilateral pleural effusions with history of previous bilateral thoracentesis. History of septic arthritis. Cellulitis of the lower extremity, clinically suspected and the patient is currently on IV cefazolin Plan: The patient is currently on 3 L of oxygen by nasal cannula, wean FiO2 as tolerated Patient is status post bilateral thoracentesis Patient is currently on IV Lasix. Consider switching this to oral Lasix. Monitor electrolytes The pleural fluid will be sent for cultures and the chemistry is more suggestive of transudate She agrees to DNR, as he would not want to be on life support. I believe that to be appropriate, given his age of 83, and his worsening dementia. Hospice consultation has been obtained Tolerating diet Anticoagulation with Eliquis , Possibly home with hospice in a.m.
--- NOTE | 2023-11-05 13:28 | P.PN ---
Subjective Progress Note Date: 11/04/23 HISTORY OF PRESENT ILLNESS: 83-year-old with active medical history of congestive heart failure with worsening exacerbation both systolic and diastolic, history of COPD, history of hypertension, hyperlipidemia, atrial fibrillation postcardiac ablation, chronic pleural effusion with previous history of thoracentesis, chronic dementia, history of anasarca and worsening edema required diuretics on and off, chronic kidney disease with worsening symptoms with diuretics, he has been in the hospital since October 24 shortly after he was admitted to [facility] for almost a week for similar complaint which patient has been in this time for worsening shortness of breath edema with anasarca. Continue to see pulmonary critical care, continue to see cardiology, infectious disease nephrology. Patient still on 4 L of O2 try to keep his pulse ox above 90 percentile, had an episode of A-fib with RVR was initiated on Cardizem drip 5 mg an hour apparently change her CODE STATUS yesterday to DO NOT RESUSCITATE with his lab value from last 24 hours hemoglobin still stable but white blood cell 24,600 continue to have chronic kidney disease with GFR of 30. Chest x-ray consistent with fluid overload. Continue to treat patient with aggressive management for his anasarca and CHF still been treated for COPD as well as pleural effusion looks like multi subspecialist follow-up for the last 2 years with recurrent episode require seen patient in almost on weekly basis and multi hospitalization. Biggest at this point at least finally the made him DO NOT RESUSCITATE will continue to work toward palliative care by the time you leave the hospital this time. Patient is debilitated without she has been agreeable to take him home or he required to go to rehab is to be determined. 11/01/2023: Review of his testing from last 24 hours kidney function still holding well with GFR at 51, white blood cell 12.9 with normal hemoglobin, his blood sugar dropped down this morning to be quite bit hypoglycemic at 36 through the night was close to 200. Continue to be in A-fib by EKG from last 24 hours currently show A-fib with pulse rate running at 110 beats per minutes. Still seeing cardiology and still on Cardizem. Still require 4 L O2 to keep his pulse ox above 90-92 percentile, with increase of Lasix to 40 mg twice a day with diuresing that more. Have long discussion with the today about hospice and palliative care and excepting the fact that she is making arrangement to have patient go either home on hospice or go to the hospice house which the patient will be talking again with the older adult social work specialist about it today for final decision and plan probably by the end of the day and by early tomorrow morning. 11/02/2023: He ended up having 2000 cc of turbid color fluid removed via paracentesis with pulmonary without any difficulty. His breathing has improved significantly with finding of his x-ray showed significant fluid more on the left on the right side based on how much fluid was removed it looks a lot more than what expected on the chest x-ray. Blood sugar was quite bit low yesterday backing off on regular insulin has corrected we should keep patient without any long-acting or any regular NovoLog AC meals just continue the sliding scales had helped. Today waiting for final decision and conclusion to when will be ready for hospice hopefully sometime later today should be able to discharge patient either to the hospice house or home on hospice. Even the who accepted the fact that hospice will be the involvement she is still asking for more aggressive management with physical therapy and IV antibiotic and thoracentesis. Which I agree some of those will be done for comfort purposes at this point knowing that does not change the morbidity and mortality still high in the next few months. But agree to keep everybody happy and satisfied patient and his still not able to make a decision whether he wants to go to the hospice house or go to inpatient rehab or going home on hospice. 11/03/2023: I had long meeting with the , the daughter who is visiting from [place] and the neighbor who is helping the some of the management. Kenroy was able with help of physical therapy to get out of bed to the chair today which him and his are very happy with it and he seemed to have better outlook after thoracentesis was done and shortness of breath has improved. Will continue current management apparently seeing cardiology early who agreed to give IV diuretics for at least another 24 hours. had met with hospice and they are agreeable to move on with all equipment needed and prepare for hospice which the does not want to do till Monday wants to give him more chance to do physical therapy and aggressive IV diuretics and on Monday will take him home on hospice. 11/04/2023: He is doing slightly well continue to have slight dyspnea and shortness of breath with minimal exertion, congestion is much better since the thoracentesis, his IV came out today we will try to obtain another IV and continue diuretics IV till Monday morning. Weight has been stable no change edema especially of the lower extremity has been slightly bit better. REVIEW OF SYSTEMS: CONSTITUTIONAL: Elderly mild respiratory distress EYES: No icterus sclerae, no conjunctivitis. EARS, NOSE, MOUTH, THROAT, and FACE: No sore throat, lymphadenopathy, carotid bruits or deformity. RESPIRATORY: Positive shortness of breath cough and wheezes. CARDIOVASCULAR: Positive PND orthopnea palpitation. GASTROINTESTINAL: No Abd pain, Nausea or vomiting, no Diarrhea or constipation, No GI Bleed, no distention or masses. GENITOURINARY: Negative for Hematuria or UTI, no kidney stones. INTEGUMENT/BREAST: Negative for any muscular injury with mild osteoarthritis.. HEMATOLOGIC/LYMPHATIC: Negative for bleed or purpura. MUSCULOSKELTAL: Negative for Myalgia or arthralgia. NEURLOGICAL: No LOC, Sz or syncope, blurred vision dizziness or abnormality.. BEHAVIORAL/PSYCH: Negative. ENDOCRINE: Negative. PHYSICAL EXAMINATION: General Appearance: Alert, cooperative, mild respiratory distress. Neck HEENT: Supple, no lymphadenopathy, no thyroid enlargement, no carotid bruits. Lungs: Decreased breath sound bilaterally especially the right side past 5 rhonchi with crackles present at expected wheezes. Chest Wall: Chest wall normal expansion with deep inspiration no tenderness and no deformity was found on exam, no costochondral pain or discomfort. Heart: Irregular rhythm and rate , S1, S2 normal, no murmur, rub or gallop. Back: Symmetric, no curvature, ROM normal, no CVA tenderness. Abdomen: Soft, non-tender, bowel sounds active all four quadrants, no masses, no organomegaly. Extremities: Extremities normal, atraumatic, no cyanosis or positive edema. Skin: Skin color, texture, tugor normal, no rashes or lesions. Neurologic: Alert oriented x3 cranial nerves II through XII intact, no motor deficit, no abnormal balance or gait. ASSESSMENT AND PLAN: _Acute hypoxic respiratory failure secondary to CHF and mild COPD with A-fib wit h the current condition become quite debilitated and more end-stage for both CHF and COPD with worsening anasarca patient be on hospice care. Will be doing hospice start Monday. 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 Wants to continue on IV diuretics again for at least the next 48 hours. _A-fib with RVR: With chronic history of atrial fibrillation remain on Eliquis currently still on Cardizem drip switch to Cardizem orally and still on metoprolol pulse rate is better since. Pulse rate still above 110 to increase Cardizem today. Pulse rate slightly better with increase of Cardizem. No further flareup of A-fib in last 48 hours. _Anasarca and bilateral edema: Remain on higher albumin intake with furosemide 40 mg IV twice a day and spironolactone. Slightly better after thoracentesis. _Large pleural effusion: Post thoracentesis yesterday successfully for 2000 cc of not clear-colored fluid. Continue to have slight congestion mostly early pulmonary edema from chronic heart failure and chronic heart disease. _COPD remain on O2 and updraft treatment he is not in any exacerbation. _Acute kidney injury: Creatinine stabilized at 1.37 with GFR still running in the 30s. _Severe hypoglycemia: Secondary to the long-acting and short acting insulin which mostly was started when patient was on a large dose of steroid he does not need anymore at this point he is off long-acting and short acting he is on sliding scales only. _Right leg cellulitis: Remain on cefazolin. Still seen infectious disease. _CODE STATUS: DO NOT RESUSCITATE. Looking into hospice care. _GI prophylaxis still on PPI. _Discussion: Continue IV diuretics, nutrition, supportive care and wants to do hospice start on Monday. Objective - Vital Signs Vital signs: Vital Signs Temp 97.6 F 11/04/23 00:00 Pulse 68 11/04/23 16:05 Resp 18 11/04/23 15:46 BP 96/61 11/04/23 15:46 Pulse Ox 98 11/04/23 15:46 FiO2 Intake & Output 11/04/23 11/04/23 11/05/23 06:59 18:59 06:59 Intake Total 568 Output Total 550 600 Balance -550 -32 Weight 53.5 kg Intake: IV 250 .9@20 240 Invasive Line 4 10 Oral 318 Output: Urine 550 600 Other: Voiding Method Diaper Diaper Incontinent Incontinent External Catheter External Catheter # Voids 1 # Bowel Movements 1 - Labs CBC & Chem 7: 10/31/23 07:34 11/02/23 07:01 Labs: Abnormal Lab Results - Last 24 Hours (Table) 11/03/23 11/04/23 11/04/23 Range/Units 20:50 05:48 11:33 POC Glucose (mg/dL) 342 H 181 H 211 H (70-110) mg/dL 11/04/23 Range/Units 16:44 POC Glucose (mg/dL) 239 H (70-110) mg/dL Microbiology - Last 24 Hours (Table) 11/02/23 11:00 Gram Stain - Preliminary Pleural Fluid Body Fluid Culture - Preliminary
--- NOTE | 2023-11-05 13:35 | P.PN ---
Subjective Progress Note Date: 11/05/23 HISTORY OF PRESENT ILLNESS: 83-year-old with active medical history of congestive heart failure with worsening exacerbation both systolic and diastolic, history of COPD, history of hypertension, hyperlipidemia, atrial fibrillation postcardiac ablation, chronic pleural effusion with previous history of thoracentesis, chronic dementia, history of anasarca and worsening edema required diuretics on and off, chronic kidney disease with worsening symptoms with diuretics, he has been in the hospital since October 24 shortly after he was admitted to [facility] for almost a week for similar complaint which patient has been in this time for worsening shortness of breath edema with anasarca. Continue to see pulmonary critical care, continue to see cardiology, infectious disease nephrology. Patient still on 4 L of O2 try to keep his pulse ox above 90 percentile, had an episode of A-fib with RVR was initiated on Cardizem drip 5 mg an hour apparently change her CODE STATUS yesterday to DO NOT RESUSCITATE with his lab value from last 24 hours hemoglobin still stable but white blood cell 24,600 continue to have chronic kidney disease with GFR of 30. Chest x-ray consistent with fluid overload. Continue to treat patient with aggressive management for his anasarca and CHF still been treated for COPD as well as pleural effusion looks like multi subspecialist follow-up for the last 2 years with recurrent episode require seen patient in almost on weekly basis and multi hospitalization. Biggest at this point at least finally the made him DO NOT RESUSCITATE will continue to work toward palliative care by the time you leave the hospital this time. Patient is debilitated without she has been agreeable to take him home or he required to go to rehab is to be determined. 11/01/2023: Review of his testing from last 24 hours kidney function still holding well with GFR at 51, white blood cell 12.9 with normal hemoglobin, his blood sugar dropped down this morning to be quite bit hypoglycemic at 36 through the night was close to 200. Continue to be in A-fib by EKG from last 24 hours currently show A-fib with pulse rate running at 110 beats per minutes. Still seeing cardiology and still on Cardizem. Still require 4 L O2 to keep his pulse ox above 90-92 percentile, with increase of Lasix to 40 mg twice a day with diuresing that more. Have long discussion with the today about hospice and palliative care and excepting the fact that she is making arrangement to have patient go either home on hospice or go to the hospice house which the patient will be talking again with the psychiatric social worker supervisor about it today for final decision and plan probably by the end of the day and by early tomorrow morning. 11/02/2023: He ended up having 2000 cc of turbid color fluid removed via paracentesis with pulmonary without any difficulty. His breathing has improved significantly with finding of his x-ray showed significant fluid more on the left on the right side based on how much fluid was removed it looks a lot more than what expected on the chest x-ray. Blood sugar was quite bit low yesterday backing off on regular insulin has corrected we should keep patient without any long-acting or any regular NovoLog AC meals just continue the sliding scales had helped. Today waiting for final decision and conclusion to when will be ready for hospice hopefully sometime later today should be able to discharge patient either to the hospice house or home on hospice. Even the who accepted the fact that hospice will be the involvement she is still asking for more aggressive management with physical therapy and IV antibiotic and thoracentesis. Which I agree some of those will be done for comfort purposes at this point knowing that does not change the morbidity and mortality still high in the next few months. But agree to keep everybody happy and satisfied patient and his still not able to make a decision whether he wants to go to the hospice house or go to inpatient rehab or going home on hospice. 11/03/2023: I had long meeting with the , the daughter who is visiting from [place] and the neighbor who is helping the some of the management. Kenroy was able with help of physical therapy to get out of bed to the chair today which him and his are very happy with it and he seemed to have better outlook after thoracentesis was done and shortness of breath has improved. Will continue current management apparently seeing cardiology early who agreed to give IV diuretics for at least another 24 hours. had met with hospice and they are agreeable to move on with all equipment needed and prepare for hospice which the does not want to do till Monday wants to give him more chance to do physical therapy and aggressive IV diuretics and on Monday will take him home on hospice. 11/04/2023: He is doing slightly well continue to have slight dyspnea and shortness of breath with minimal exertion, congestion is much better since the thoracentesis, his IV came out today we will try to obtain another IV and continue diuretics IV till Monday morning. Weight has been stable no change edema especially of the lower extremity has been slightly bit better. 11/05/2023: Is resting comfortably in bed still on 3 L of O2 with pulse ox running around 94 percentile quite debilitated not been able to do whole lot mobility machado he need at least 1 person customer relations assistant. CODE STATUS remains DO NOT RESUSCIT ATE and prepare for hospice by tomorrow. Had bilateral thoracentesis earlier 2000 cc drained has been still feeling better evaluate continue to have slight rhonchi and mild pulmonary edema picture and the bottom part of his lung specially when he lay down flat. Continue medical management. He is IV was restarted and he is back on IV diuretics at least on Monday. REVIEW OF SYSTEMS: CONSTITUTIONAL: Elderly mild respiratory distress EYES: No icterus sclerae, no conjunctivitis. EARS, NOSE, MOUTH, THROAT, and FACE: No sore throat, lymphadenopathy, carotid bruits or deformity. RESPIRATORY: Positive shortness of breath cough and wheezes. CARDIOVASCULAR: Positive PND orthopnea palpitation. GASTROINTESTINAL: No Abd pain, Nausea or vomiting, no Diarrhea or constipation, No GI Bleed, no distention or masses. GENITOURINARY: Negative for Hematuria or UTI, no kidney stones. INTEGUMENT/BREAST: Negative for any muscular injury with mild osteoarthritis.. HEMATOLOGIC/LYMPHATIC: Negative for bleed or purpura. MUSCULOSKELTAL: Negative for Myalgia or arthralgia. NEURLOGICAL: No LOC, Sz or syncope, blurred vision dizziness or abnormality.. BEHAVIORAL/PSYCH: Negative. ENDOCRINE: Negative. PHYSICAL EXAMINATION: General Appearance: Alert, cooperative, mild respiratory distress. Neck HEENT: Supple, no lymphadenopathy, no thyroid enlargement, no carotid bruits. Lungs: Decreased breath sound bilaterally especially the right side past 5 rhonchi with crackles present at expected wheezes. Chest Wall: Chest wall normal expansion with deep inspiration no tenderness and no deformity was found on exam, no costochondral pain or discomfort. Heart: Irregular rhythm and rate , S1, S2 normal, no murmur, rub or gallop. Back: Symmetric, no curvature, ROM normal, no CVA tenderness. Abdomen: Soft, non-tender, bowel sounds active all four quadrants, no masses, no organomegaly. Extremities: Extremities normal, atraumatic, no cyanosis or positive edema. Skin: Skin color, texture, tugor normal, no rashes or lesions. Neurologic: Alert oriented x3 cranial nerves II through XII intact, no motor deficit, no abnormal balance or gait. ASSESSMENT AND PLAN: _Acute hypoxic respiratory failure secondary to CHF and mild COPD with A-fib, will continue IV diuretics for now along with spironolactone reduce anasarca patient is doing much better still on oxygen still on updraft treatment as well. _Combination of systolic and diastolic congestive heart failure: Still seeing cardiology and remain on combination of furosemide 40 mg IV twice a day along with spironolactone 25 mg daily blood pressure seems to hold well so far continue again current management combined with metoprolol he is not able to start on any CASSANDRA, ARB or Entresto. _A-fib with RVR: With chronic history of atrial fibrillation remain on Eliquis currently still on Cardizem drip switch to Cardizem orally and still on metoprolol pulse rate is better since. Pulse rate still above 110 to increase Cardizem today. Pulse rate slightly better with increase of Cardizem. No further flareup of A-fib in last 48 hours. _Anasarca and bilateral edema: Remain on higher albumin intake with furosemide 40 mg IV twice a day and spironolactone. Slightly better after thoracentesis. Weight is down compared to before. _Large pleural effusion: Post thoracentesis yesterday successfully for 2000 cc of not clear-colored fluid. Continue to have slight congestion mostly early pulmonary edema from chronic heart failure and chronic heart disease. _COPD remain on O2 to keep pulse ox above 90 percentile remain on DuoNeb along with Pulmicort and montelukast. _Acute kidney injury: Kidney function is back to his baseline. _Hyperglycemia with no further hypoglycemia at this point was on the glipizide metformin before which could have withdrawal into having hypoglycemia is off completely and his off Jardiance has been on NovoLog per sliding scales eventua lly can benefit from doing SGLT2 product. _Severe hypoglycemia: Secondary to the long-acting and short acting insulin which mostly was started when patient was on a large dose of steroid he does not need anymore at this point he is off long-acting and short acting he is on sliding scales only. _Right leg cellulitis: Remain on cefazolin. Will continue probably oral antibiotic when he leaves the hospital for few more days. Memory loss: Will continue Exelon 3 mg capsule twice a day does not seem to have any side effect or complication from it. _CODE STATUS: DO NOT RESUSCITATE. Hospice on Monday. Objective - Vital Signs Vital signs: Vital Signs Temp 97.6 F 11/05/23 04:00 Pulse 88 11/05/23 11:55 Resp 18 11/05/23 11:32 BP 96/62 11/05/23 11:31 Pulse Ox 99 11/05/23 11:32 FiO2 Intake & Output 11/04/23 11/05/23 11/05/23 18:59 06:59 18:59 Intake Total 568 20 140 Output Total 600 400 Balance -32 20 -260 Weight 53 kg Intake: IV 250 20 20 .9@20 240 Invasive Line 4 10 20 20 Oral 318 120 Output: Urine 600 400 Other: Voiding Method Diaper Diaper Diaper Incontinent Incontinent Incontinent External Catheter External Catheter External Catheter # Voids 1 # Bowel Movements 1 1 - Labs CBC & Chem 7: 10/31/23 07:34 11/02/23 07:01 Labs: Abnormal Lab Results - Last 24 Hours (Table) 11/04/23 11/04/23 11/05/23 Range/Units 16:44 20:32 06:02 POC Glucose (mg/dL) 239 H 356 H 133 H (70-110) mg/dL 11/05/23 Range/Units 11:13 POC Glucose (mg/dL) 275 H (70-110) mg/dL Microbiology - Last 24 Hours (Table) 11/02/23 11:00 Gram Stain - Preliminary Pleural Fluid Body Fluid Culture - Preliminary
--- NOTE | 2023-11-05 15:12 | P.PN ---
Subjective Progress Note Date: 11/05/23 Principal diagnosis: Reason for follow-up is right lower extremity cellulitis and question of pneumonia Patient is a 83-year-old male with a past medical history significant for diabetes mellitus hypertension hyperlipidemia COPD atrial fibrillation pneumonia prostate disorder patient has been brought into the hospital for evaluation of increasing shortness of breath and right leg swelling with concern for right lower extremity cellulitis and possible pneumonia. On today's evaluation that is 11/05/2023, the patient continues to be afebrile, the patient is on 2 L current oxygen and breathing comfortably, the Pt denies having any chest pain or cough, the patient denies having any abdominal pain no vomiting or any diarrhea has been reported by the nursing staff. No new lab has been obtained today pleural fluid cultures so far negative Objective - Vital Signs Vital signs: Vital Signs Temp 97.6 F 11/05/23 04:00 Pulse 88 11/05/23 11:55 Resp 18 11/05/23 11:32 BP 96/62 11/05/23 11:31 Pulse Ox 99 11/05/23 11:32 FiO2 Intake & Output 11/04/23 11/05/23 11/05/23 18:59 06:59 18:59 Intake Total 568 20 140 Output Total 600 400 Balance -32 20 -260 Weight 53 kg Intake: IV 250 20 20 .9@20 240 Invasive Line 4 10 20 20 Oral 318 120 Output: Urine 600 400 Other: Voiding Method Diaper Diaper Diaper Incontinent Incontinent Incontinent External Catheter External Catheter External Catheter # Voids 1 # Bowel Movements 1 1 - Exam GENERAL DESCRIPTION: An elderly male lying in bed in no distress RESPIRATORY SYSTEM: Unlabored breathing , decreased breath sounds at bases HEART: S1 S2 regular rate and rhythm , ABDOMEN: Soft , no tenderness EXTREMITIES: Right lower extremity slight erythema which is warm to touch - Labs CBC & Chem 7: 10/31/23 07:34 11/02/23 07:01 Labs: Abnormal Lab Results - Last 24 Hours (Table) 11/04/23 11/04/23 11/05/23 Range/Units 16:44 20:32 06:02 POC Glucose (mg/dL) 239 H 356 H 133 H (70-110) mg/dL 11/05/23 Range/Units 11:13 POC Glucose (mg/dL) 275 H (70-110) mg/dL Microbiology - Last 24 Hours (Table) 11/02/23 11:00 Gram Stain - Preliminary Pleural Fluid Body Fluid Culture - Preliminary Assessment and Plan (1) Abnormal chest x-ray Current Visit: Yes Status: Acute Code(s): R93.89 - ABNORMAL FINDINGS ON DX IMAGING OF OTH BODY STRUCTURES SNOMED Code(s): 296488955 (2) Leukocytosis Current Visit: No Status: Acute Code(s): D72.829 - ELEVATED WHITE BLOOD CELL COUNT, UNSPECIFIED SNOMED Code(s): 511249178 (3) Cellulitis of leg, right Current Visit: Yes Status: Acute Code(s): L03.115 - CELLULITIS OF RIGHT LOWER LIMB SNOMED Code(s): 49394569597081005 Plan: 1patient presented to hospital with increasing shortness of breath lower extremity swelling questionable of fluid overload CHF as the patient did have a bilateral effusion swelling to the lower extremity which is red and warm to touch 2-patient leukocytosis possibly steroid related with Solu-Medrol white count did come down to 12,000, no CBC was done today 3-the patient did have a bilateral thoracocentesis done fluid white count is not significantly elevated more likely transudative cultures so far negative 4-patient did have improvement in right leg cellulitis, to continue with cefazolin will transition to oral Keflex on discharge. Dictation was produced using [employer] dictation software. please excuse any gr ammatical, word or spelling errors. Time with Patient: Less than 30
[2023-11-05 16:19] LABS: Glucose,Whole Blood 269 mg/dL (70-110)
[2023-11-05 20:22] LABS: Glucose,Whole Blood 280 mg/dL (70-110)
[2023-11-05] MEDS: FUROSEMIDE 10 MG/ML 4 ML VIAL IV SCH (20:59)
[2023-11-06 06:10] LABS: Glucose,Whole Blood 235 mg/dL (70-110)
[2023-11-06 08:19] VITALS: TEMP 97.8
[2023-11-06 11:38] VITALS: BP 95/52; PULSE 65
[2023-11-06 11:50] LABS: Glucose,Whole Blood 251 mg/dL (70-110)
--- NOTE | 2023-11-06 14:33 | P.PN ---
Subjective Progress Note Date: 11/06/23 Principal diagnosis: Acute hypoxic respiratory failure secondary to acute on chronic diastolic congestive heart failure and bilateral pleural effusions requiring thoracentesis. On today's evaluation of 11/03/2023, the patient's respiratory status is stable. No significant respite difficulties. The patient had undergone bilateral thoracentesis. The patient is also on Lasix 40 mg IV every 12 hours. Anticoagulation was resumed yesterday. Meanwhile, the patient has working with physical therapy. Hospice consultation has been obtained. Serum bicarb is at 37. BUN is 39 with a creatinine of 0.9 and a sodium levels at 136. At this point in time, the patient on 40 Suboxone by nasal cannula with a pulse ox of 93%. No other significant events overnight. He is a DNR/DNI. On 11/04/2023, seen the patient for a follow-up. Doing well. No specific complaints. Resting In bed. Tolerating diet. Negative fluid balance as the patient remains on IV Lasix. Labs from today are still pending. Otherwise, the night was uneventful. The patient remains on 40 Suboxone by nasal cannula with a pulse ox of 95%. The patient is currently on the medical floor. He is post bilateral thoracentesis. His CODE STATUS is DNR/DNI. 11/05/2023, the patient is resting comfortably in bed. No respiratory distress. The patient is currently on 3 L of oxygen by nasal cannula with a pulse ox of 94%. New labs are available from today. The patient has no specific complaints. He is quite debilitated due to various comorbidities. He is status post bilateral thoracentesis which further optimize his respiratory status. Rest of the medications are essentially unchanged and the patient is still on anticoagulation with Eliquis. Hospice has been consulted. He is a DNR/DNI CODE STATUS. Patient evaluated today on 11/06/2023, is at bedside, patient seems to be comfortable, he is on 3 L nasal cannula, not in any distress, patient has been receiving diuretics, he underwent thoracentesis by Dr. Lino and drained a left- sided and right-sided pleural effusion, patient seems to be comfortable, apparently his CODE STATUS has been changed and the patient is now going for hospice mostly because of failure to thrive. Objective - Vital Signs Vital signs: Vital Signs Temp 97.8 F 11/06/23 08:08 Pulse 65 09/09/24 11:37 Resp 18 11/06/23 11:37 BP 95/52 11/06/23 11:37 Pulse Ox 96 11/06/23 11:37 FiO2 Intake & Output 11/05/23 11/06/23 11/06/23 18:59 06:59 18:59 Intake Total 550 20 118 Output Total 400 451 300 Balance 150 -431 -182 Weight 69 kg Intake: IV 260 20 .9@20 240 Invasive Line 4 20 20 Intake, IV Titration 50 Amount ceFAZolin 2 gm In Sodium 50 Chloride 0.9% 50 ml @ 100 mls/hr IVPB Q8H [facility] Rx#: [id number] Oral 240 118 Output: Urine 400 450 300 Stool 1 Other: Voiding Method Diaper Diaper Diaper Incontinent Incontinent Incontinent External Catheter External Catheter External Catheter # Bowel Movements 2 1 - Exam GENERAL: 83-year-old white male looks frail and chronically ill. On 3 L nasal cannula. Head: Atraumatic, normocephalic. NECK: Supple. No JVD or thyromegaly LUNGS: Respirations even and unlabored. Lungs essentially clear to auscultation bilaterally. HEART: Regular rate and rhythm. S1 and S2 heard. EXTREMITIES: Normal range of motion. No clubbing or cyanosis. Peripheral pulses intact. No lower extremity edema Neurologic: Alert oriented x 3 no gross focal deficit Skin: No rashes. - Labs CBC & Chem 7: 10/31/23 07:34 11/02/23 07:01 Labs: Abnormal Lab Results - Last 24 Hours (Table) 11/05/23 11/05/23 11/06/23 Range/Units 16:15 20:18 06:08 POC Glucose (mg/dL) 269 H 280 H 235 H (70-110) mg/dL 11/06/23 Range/Units 11:48 POC Glucose (mg/dL) 251 H (70-110) mg/dL Microbiology - Last 24 Hours (Table) 11/02/23 11:00 Gram Stain - Final Pleural Fluid Body Fluid Culture - Final Assessment and Plan Assessment: ASSESSMENT: Paroxysmal atrial fibrillation Acute on chronic congestive heart failure with preserved EF Bilateral pleural effusions status post right sided thoracentesis with removal of 2 L, 11/01/2023 Status post left-sided thoracentesis with removal of 1.7 L, 11/02/2023 Nonsustained ventricular tachycardia Recent hospitalization at [place] for pneumonia Hypertension Hyperlipidemia COPD History of lymphedema Recommendation: Continue present supportive care measures However I discussed his condition with the at bedside, and already planned to proceed with hospice. Patient may be discharged to home hospice today. Will follow as needed. Time with Patient: Less than 30
--- NOTE | 2023-11-07 06:11 | P.DS ---
Providers Date of admission: 10/25/23 16:41 Attending physician: Poli Ceron Consults: 10/25/23 16:24 Consult Physician Routine Consulting Provider: Chang Hodge Consult Reason/Comments: Pneumonia, pulmonary edema Do you want consulting provider notified?: Yes 10/25/23 16:25 Consult Physician Routine Consulting Provider: Evie Glass Consult Reason/Comments: Pneumonia, cellulitis Do you want consulting provider notified?: Yes Primary care physician: [facility] Course: HISTORY OF PRESENT ILLNESS: 83-year-old with active medical history of congestive heart failure with worsening exacerbation both systolic and diastolic, history of COPD, history of hypertension, hyperlipidemia, atrial fibrillation postcardiac ablation, chronic pleural effusion with previous history of thoracentesis, chronic dementia, history of anasarca and worsening edema required diuretics on and off, chronic kidney disease with worsening symptoms with diuretics, he has been in the hospital since October 24 shortly after he was admitted to [facility] for almost a week for similar complaint which patient has been in this time for worsening shortness of breath edema with anasarca. Continue to see pulmonary critical care, continue to see cardiology, infectious disease nephrology. Patient still on 4 L of O2 try to keep his pulse ox above 90 percentile, had an episode of A-fib with RVR was initiated on Cardizem drip 5 mg an hour apparently change her CODE STATUS yesterday to DO NOT RESUSCITATE with his lab value from last 24 hours hemoglobin still stable but white blood cell 24,600 continue to have chronic kidney disease with GFR of 30. Chest x-ray consistent with fluid overload. Continue to treat patient with aggressive management for his anasarca and CHF still been treated for COPD as well as pleural effusion looks like multi subspecialist follow-up for the last 2 years with recurrent episode require seen patient in almost on weekly basis and multi hospitalization. Biggest at this point at least finally the made him DO NOT RESUSCITATE will continue to work toward palliative care by the time you leave the hospital this time. Patient is debilitated without she has been agreeable to take him home or he required to go to rehab is to be determined. 11/01/2023: Review of his testing from last 24 hours kidney function still holding well with GFR at 51, white blood cell 12.9 with normal hemoglobin, his blood sugar dropped down this morning to be quite bit hypoglycemic at 36 through the night was close to 200. Continue to be in A-fib by EKG from last 24 hours currently show A-fib with pulse rate running at 110 beats per minutes. Still seeing cardiology and still on Cardizem. Still require 4 L O2 to keep his pulse ox above 90-92 percentile, with increase of Lasix to 40 mg twice a day with diuresing that more. Have long discussion with the today about hospice and palliative care and excepting the fact that she is making arrangement to have patient go either home on hospice or go to the hospice house which the patient will be talking again with the social and political studies professor about it today for final decision and plan probably by the end of the day and by early tomorrow morning. 11/02/2023: He ended up having 2000 cc of turbid color fluid removed via paracentesis with pulmonary without any difficulty. His breathing has improved significantly with finding of his x-ray showed significant fluid more on the left on the right side based on how much fluid was removed it looks a lot more than what expected on the chest x-ray. Blood sugar was quite bit low yesterday backing off on regular insulin has corrected we should keep patient without any long-acting or any regular NovoLog AC meals just continue the sliding scales had helped. Today waiting for final decision and conclusion to when will be ready for hospice hopefully sometime later today should be able to discharge patient either to the hospice house or home on hospice. Even the who accepted the fact that hospice will be the involvement she is still asking for more aggressive management with physical therapy and IV antibiotic and thoracentesis. Which I agree some of those will be done for comfort purposes at this point knowing that does not change the morbidity and mortality still high in the next few months. But agree to keep everybody happy and satisfied patient and his still not able to make a decision whether he wants to go to the hospice house or go to inpatient rehab or going home on hospice. 11/03/2023: I had long meeting with the , the daughter who is visiting from [place] and the neighbor who is helping the some of the management. Kenroy was able with help of physical therapy to get out of bed to the chair today which him and his are very happy with it and he seemed to have better outlook after thoracentesis was done and shortness of breath has improved. Will continue current management apparently seeing cardiology early who agreed to give IV diuretics for at least another 24 hours. had met with hospice and they are agreeable to move on with all equipment needed and prepare for hospice which the does not want to do till Monday wants to give him more chance to do physical therapy and aggressive IV diuretics and on Monday will take him home on hospice. 11/04/2023: He is doing slightly well continue to have slight dyspnea and shortness of breath with minimal exertion, congestion is much better since the thoracentesis, his IV came out today we will try to obtain another IV and continue diuretics IV till Monday morning. Weight has been stable no change edema especially of the lower extremity has been slightly bit better. 11/05/2023: Is resting comfortably in bed still on 3 L of O2 with pulse ox running around 94 percentile quite debilitated not been able to do whole lot mobility machado he need at least 1 person property assistant. CODE STATUS remains DO NOT RESUSCITATE and prepare for hospice by tomorrow. Had bilateral thoracentesis earlier 2000 cc drained has been still feeling better evaluate continue to have slight rhonchi and mild pulmonary edema picture and the bottom part of his lung specially when he lay down flat. Continue medical management. He is IV was restarted and he is back on IV diuretics at least on Monday. 11/06/2023: The patient is lying in bed still having significant shortness of breath with minimal movement and change, still require diuretics and more persistent base. Following his 2000 cc of thoracentesis on both side 2 days ago patient started accumulating little bit more. As intended with his family meeting earlier and the plan was all along to continue IV diuretics and prepare for taking him home on hospice care. Will finalize a plan with hospice for pain management and comfort care otherwise he is medically medication were changed and patient hopefully will be discharged today. REVIEW OF SYSTEMS: CONSTITUTIONAL: Elderly mild respiratory distress EYES: No icterus sclerae, no conjunctivitis. EARS, NOSE, MOUTH, THROAT, and FACE: No sore throat, lymphadenopathy, carotid bruits or deformity. RESPIRATORY: Positive shortness of breath cough and wheezes. CARDIOVASCULAR: Positive PND orthopnea palpitation. GASTROINTESTINAL: No Abd pain, Nausea or vomiting, no Diarrhea or constipation, No GI Bleed, no distention or masses. GENITOURINARY: Negative for Hematuria or UTI, no kidney stones. INTEGUMENT/BREAST: Negative for any muscular injury with mild osteoarthritis.. HEMATOLOGIC/LYMPHATIC: Negative for bleed or purpura. MUSCULOSKELTAL: Negative for Myalgia or arthralgia. NEURLOGICAL: No LOC, Sz or syncope, blurred vision dizziness or abnormality.. BEHAVIORAL/PSYCH: Negative. ENDOCRINE: Negative. PHYSICAL EXAMINATION: General Appearance: Alert, cooperative, mild respiratory distress. Neck HEENT: Supple, no lymphadenopathy, no thyroid enlargement, no carotid bruits. Lungs: Decreased breath sound bilaterally especially the right side past 5 rhonchi with crackles present at expected wheezes. Chest Wall: Chest wall normal expansion with deep inspiration no tenderness and no deformity was found on exam, no costochondral pain or discomfort. Heart: Irregular rhythm and rate , S1, S2 normal, no murmur, rub or gallop. Back: Symmetric, no curvature, ROM normal, no CVA tenderness. Abdomen: Soft, non-tender, bowel sounds active all four quadrants, no masses, no organomegaly. Extremities: Extremities normal, atraumatic, no cyanosis or positive edema. Skin: Skin color, texture, tugor normal, no rashes or lesions. Neurologic: Alert oriented x3 cranial nerves II through XII intact, no motor deficit, no abnormal balance or gait. ASSESSMENT AND PLAN: _Acute hypoxic respiratory failure secondary to CHF and mild COPD with A-fib, will continue IV diuretics for now along with spironolactone reduce anasarca patient is doing much better still on oxygen still on updraft treatment as well. _Combination of systolic and diastolic congestive heart failure: Still seeing cardiology and remain on combination of furosemide 40 mg IV twice a day along with spironolactone 25 mg daily blood pressure seems to hold well so far continue again current management combined with metoprolol he is not able to start on any CASSANDRA, ARB or Entresto. _A-fib with RVR: With chronic history of atrial fibrillation remain on Eliquis currently still on Cardizem drip switch to Cardizem orally and still on metoprolol pulse rate is better since. Pulse rate still above 110 to increase Cardizem today. Pulse rate slightly better with increase of Cardizem. No further flareup of A-fib in last 48 hours. _Anasarca and bilateral edema: Remain on higher albumin intake with furosemide 40 mg IV twice a day and spironolactone. Slightly better after thoracentesis. Weight is down compared to before. _Large pleural effusion: Post thoracentesis yesterday successfully for 2000 cc of not clear-colored fluid. Continue to have slight congestion mostly early pulmonary edema from chronic heart failure and chronic heart disease. _COPD remain on O2 to keep pulse ox above 90 percentile remain on DuoNeb along with Pulmicort and montelukast. _Acute kidney injury: Kidney function is back to his baseline. _Hyperglycemia with no further hypoglycemia at this point was on the glipizide metformin before which could have withdrawal into having hypoglycemia is off completely and his off Jardiance has been on NovoLog per sliding scales eventually can benefit from doing SGLT2 product. _Severe hypoglycemia: Secondary to the long-acting and short acting insulin which mostly was started when patient was on a large dose of steroid he does not need anymore at this point he is off long-acting and short acting he is on sliding scales only. _Right leg cellulitis: Remain on cefazolin. Will continue probably oral antibiotic when he leaves the hospital for few more days. Memory loss: Will continue Exelon 3 mg capsule twice a day does not seem to have any side effect or complication from it. _CODE STATUS: DO NOT RESUSCITATE. Home with hospice today. Hospital course: Patient was admitted to the hospital in October 25, 2023 shortly after he was admitted and discharged from [facility] for almost a week for similar complaint consistent with worsening shortness of breath edema with anasarca. He did see cardiology and pulmonary and critical care also patient had seen nephrology and infectious disease while in the hospital he was continue initially on 4 L O2 try to keep his pulse ox above 90 percentile had an episode of A-fib with RVR required Cardizem drip is still on anticoagulation. sree barth around October 29 change his CODE STATUS to DO NOT RESUSCITATE from full code he is continue to have white blood cell of 24,600 with acute on chronic kidney disease with GFR around 30 patient also had significant fluid overload he had bilateral pleural effusion worse on the right than the left side required thoracentesis initially which had helped some to some degree. Microbiology was sent culture continue to be negative. While patient was on steroid his blood sugar was quite bit high but he had an episode of severe hypoglycemia his oral hypoglycemic agent will change what he is on currently is SGLT2 product would not cause patient to be hypoglycemic anymore will continue on Accu-Chek with sliding scales coverage to cover blood sugar above 150+ to make sure he is not hypoglycemic anymore. On 11/03/2023 patient family and decided to look into hospice as an option and decided to go with home hospice for Monday but to give him a chance on the weekend to continue on IV diuretics, pulmonary and that doing 2000 cc of thoracentesis from both side which had helped patient significantly will continue to have slight shortness of breath when he lays down flat continue to have PND orthopnea palpitation is still symptomatic for CHF along with pulmonary continue to have significant anasarca. Kidney function will improve with creatinine on the fifth down to 0.99 with GFR at 17. His pleural fluid mostly transudate with no exudate fluid had some right red blood cell. On 11/06/2023 patient wants to take patient home on hospice care all equipment were delivered ahead of time and he will be discharged today to hospice. Time spent on patient discharge was over 42 minutes. Patient Condition at Discharge: Poor Plan - Discharge Summary Discharge Rx Participant: No New Discharge Prescriptions: New Metoprolol Succinate (ER) [Toprol XL] 50 mg PO BID #60 tab Ciprofloxacin Ophth Soln [Ciloxan 0.3% Ophth Soln] 2 drops BOTH EYES Q4HR #5 ml Ipratropium-Albuterol Nebulize [Duoneb 0.5 mg-3 mg/3 ml Soln] 3 ml INHALATION RT-QID #120 each Nystatin 100,000 Unit/gm Oint [Mycostatin Oint] 1 applic TOPICAL BID #100 each Continue Montelukast [Singulair] 10 mg PO HS Budesonide/Formoterol Fumarate [Symbicort 160-4.5 Mcg Inhaler] 2 puff INHALATION RT-BID Atorvastatin [Lipitor] 20 mg PO HS Mirtazapine 15 mg PO HS Apixaban [Eliquis] 5 mg PO BID Citalopram Hydrobromide [Citalopram HBr] 10 mg PO MOWEFR Prevagen 1 tab PO DAILY Rivastigmine Tartrate [Exelon] 3 mg PO BID Fludrocortisone [Florinef] 0.1 mg PO BID Furosemide [Lasix] 20 mg PO BID Empagliflozin [Jardiance] 10 mg PO DAILY Spironolactone 25 mg PO DAILY Discontinued Metoprolol Succinate (ER) [Toprol XL] 25 mg PO BID glipiZIDE/METFORMIN HCL [glipiZIDE/METFORMIN HCL 2.5-500 mg] 1 tab PO BID Discharge Medication List Atorvastatin [Lipitor] 20 mg PO HS 12/12/18 [History] Budesonide/Formoterol Fumarate [Symbicort 160-4.5 Mcg Inhaler] 2 puff INHALATION RT-BID 12/12/18 [History] Montelukast [Singulair] 10 mg PO HS 12/12/18 [History] Mirtazapine 15 mg PO HS 03/03/22 [History] Rivastigmine Tartrate [Exelon] 3 mg PO BID 03/03/22 [History] Apixaban [Eliquis] 5 mg PO BID 07/18/22 [History] Citalopram Hydrobromide [Citalopram HBr] 10 mg PO MOWEFR 12/16/22 [History] Fludrocortisone [Florinef] 0.1 mg PO BID 12/16/22 [History] Empagliflozin [Jardiance] 10 mg PO DAILY 10/25/23 [History] Furosemide [Lasix] 20 mg PO BID 10/25/23 [History] Prevagen 1 tab PO DAILY 10/25/23 [History] Spironolactone 25 mg PO DAILY 10/25/23 [History] Ciprofloxacin Ophth Soln [Ciloxan 0.3% Ophth Soln] 2 drops BOTH EYES Q4HR #5 ml 11/06/23 [Rx] Ipratropium-Albuterol Nebulize [Duoneb 0.5 mg-3 mg/3 ml Soln] 3 ml INHALATION RT-QID #120 each 11/06/23 [Rx] Metoprolol Succinate (ER) [Toprol XL] 50 mg PO BID #60 tab 11/06/23 [Rx] Nystatin 100,000 Unit/gm Oint [Mycostatin Oint] 1 applic TOPICAL BID #100 each 11/06/23 [Rx] Follow up Appointment(s)/Referral(s): Erik Welsh MD [STAFF PHYSICIAN] - 11/17/23 4:15 pm (at [facility]) Poli Ceron MD [Primary Care Provider] - 1-2 days (offie will call with follow up appointment date and time) Discharge Disposition: HOME WITH HOSPICE
--- NOTE | 2023-11-08 08:21 | P.PN ---
Subjective Progress Note Date: 11/06/23 Principal diagnosis: Reason for follow-up is right lower extremity cellulitis and question of pneumonia Patient is a 83-year-old male with a past medical history significant for diabetes mellitus hypertension hyperlipidemia COPD atrial fibrillation pneumonia prostate disorder patient has been brought into the hospital for evaluation of increasing shortness of breath and right leg swelling with concern for right lower extremity cellulitis and possible pneumonia. On today's evaluation that is 11/06/2023, Patient is afebrile patient is currently on 2 L nasal cannula oxygen and denies having any shortness of breath, the patient denies any chest pain or cough, the patient denies any nausea vomiting did not have any abdominal pain and no diarrhea. No new lab has been obtained today Objective - Vital Signs Vital signs: Vital Signs Temp 97.8 F 11/06/23 08:08 Pulse 65 11/06/23 11:37 Resp 18 11/06/23 11:37 BP 95/52 11/06/23 11:37 Pulse Ox 96 11/06/23 11:37 FiO2 Intake & Output 11/05/23 11/06/23 11/06/23 18:59 06:59 18:59 Intake Total 550 20 118 Output Total 400 451 300 Balance 150 -431 -182 Weight 69 kg Intake: IV 260 20 .9@20 240 Invasive Line 4 20 20 Intake, IV Titration 50 Amount ceFAZolin 2 gm In Sodium 50 Chloride 0.9% 50 ml @ 100 mls/hr IVPB Q8H [facility] Rx#: [id number] Oral 240 118 Output: Urine 400 450 300 Stool 1 Other: Voiding Method Diaper Diaper Diaper Incontinent Incontinent Incontinent External Catheter External Catheter External Catheter # Bowel Movements 2 1 - Exam GENERAL DESCRIPTION: An elderly male lying in bed in no distress RESPIRATORY SYSTEM: Unlabored breathing , decreased breath sounds at bases HEART: S1 S2 regular rate and rhythm , ABDOMEN: Soft , no tenderness EXTREMITIES: Right lower extremity slight erythema which is warm to touch - Labs CBC & Chem 7: 10/31/23 07:34 11/02/23 07:01 Labs: Abnormal Lab Results - Last 24 Hours (Table) 11/05/23 11/05/23 11/06/23 Range/Units 16:15 20:18 06:08 POC Glucose (mg/dL) 269 H 280 H 235 H (70-110) mg/dL 11/06/23 Range/Units 11:48 POC Glucose (mg/dL) 251 H (70-110) mg/dL Microbiology - Last 24 Hours (Table) 11/02/23 11:00 Gram Stain - Final Pleural Fluid Body Fluid Culture - Final Assessment and Plan (1) Abnormal chest x-ray Status: Acute Code(s): R93.89 - ABNORMAL FINDINGS ON DX IMAGING OF OTH BODY STRUCTURES SNOMED Code(s): 162143211 (2) Leukocytosis Status: Acute Code(s): D72.829 - ELEVATED WHITE BLOOD CELL COUNT, UNSPECIFIED SNOMED Code(s): 661284363 (3) Cellulitis of leg, right Status: Acute Code(s): L03.115 - CELLULITIS OF RIGHT LOWER LIMB SNOMED Code(s): 23159854848986082 Plan: 1patient presented to hospital with increasing shortness of breath lower extremity swelling questionable of fluid overload CHF as the patient did have a bilateral effusion swelling to the lower extremity which is red and warm to touch 2-patient leukocytosis possibly steroid related with Solu-Medrol white count did come down to 12,000, no CBC was done today 3-the patient did have a bilateral thoracocentesis done fluid white count is not significantly elevated more likely transudative cultures so far negative 4-patient will finish therapy with a short course of oral Keflex on discharge. Dictation was produced using [employer] (acquired by [employer] in 2014) dictation software. please excuse any grammatical, word or spelling errors. Time with Patient: Less than 30
== END 2023-11-06 15:33 | disposition hospice, home (50) | DRG 291 ==
LOC: EC 13:15 → 3SCARD 16:41
PROVIDERS: ADMIT Internal Medicine Geriatric Medicine; ATTEND Internal Medicine Geriatric Medicine
PROC: 0W993ZZ Drainage of Right Pleural Cavity, Percutaneous Approach (ICD-10-PCS; principal; 2023-11-01)
PROC: 0W9B3ZZ Drainage of Left Pleural Cavity, Percutaneous Approach (ICD-10-PCS; 2023-11-02)
DX: I13.0 Hypertensive heart and chronic kidney disease with heart failure and stage 1 through stage 4 chronic kidney disease, or unspecified chronic kidney disease (principal); I50.33 Acute on chronic diastolic (congestive) heart failure; J15.9 Unspecified bacterial pneumonia; J96.01 Acute respiratory failure with hypoxia; I47.20 Ventricular tachycardia, unspecified; J44.0 Chronic obstructive pulmonary disease with (acute) lower respiratory infection; J44.1 Chronic obstructive pulmonary disease with (acute) exacerbation; K76.6 Portal hypertension; L03.115 Cellulitis of right lower limb; N17.9 Acute kidney failure, unspecified; E46 Unspecified protein-calorie malnutrition; J90 Pleural effusion, not elsewhere classified; R62.7 Adult failure to thrive; Z51.5 Encounter for palliative care; Z66 Do not resuscitate; Z68.20 Body mass index [BMI] 20.0-20.9, adult; E11.22 Type 2 diabetes mellitus with diabetic chronic kidney disease; E11.51 Type 2 diabetes mellitus with diabetic peripheral angiopathy without gangrene; E11.649 Type 2 diabetes mellitus with hypoglycemia without coma; E11.65 Type 2 diabetes mellitus with hyperglycemia; E78.5 Hyperlipidemia, unspecified; E83.42 Hypomagnesemia; E88.09 Other disorders of plasma-protein metabolism, not elsewhere classified; H91.90 Unspecified hearing loss, unspecified ear; F03.C0 Unspecified dementia, severe, without behavioral disturbance, psychotic disturbance, mood disturbance, and anxiety; I25.10 Atherosclerotic heart disease of native coronary artery without angina pectoris; I87.2 Venous insufficiency (chronic) (peripheral); I08.2 Rheumatic disorders of both aortic and tricuspid valves; M71.21 Synovial cyst of popliteal space [Baker], right knee; N18.9 Chronic kidney disease, unspecified; R13.10 Dysphagia, unspecified; I48.0 Paroxysmal atrial fibrillation; Z79.01 Long term (current) use of anticoagulants; Z79.51 Long term (current) use of inhaled steroids; Z79.84 Long term (current) use of oral hypoglycemic drugs; Z79.899 Other long term (current) drug therapy; Z82.49 Family history of ischemic heart disease and other diseases of the circulatory system; Z87.01 Personal history of pneumonia (recurrent); Z87.891 Personal history of nicotine dependence; Z99.81 Dependence on supplemental oxygen; Z88.5 Allergy status to narcotic agent; Z88.8 Allergy status to other drugs, medicaments and biological substances; Z86.14 Personal history of Methicillin resistant Staphylococcus aureus infection; Z98.42 Cataract extraction status, left eye; Z98.41 Cataract extraction status, right eye
CPT/HCPCS: 36415; 71045; 71046; 74230; 76604; 80048; 80053; 80061; 81001; 82550; 82945; 83036; 83605; 83615; 83735; 83880; 84145; 84157; 84443; 84484; 85025; 85027; 85610; 85652; 85730; 86140; 87070; 87205; 87449; 87635; 88108; 88305; 89050; 93005; 93970; 94640; 94760; 96365; 96366; 96375; 99285